=== PATIENT | female | born 1960 | race Two or more races ===

== ENCOUNTER 2024-12-25 21:32 | Inpatient (IN) | payer MEDICARE, MEDICAID, SELFPAY ==
[2024-12-25 21:35] VITALS: PULSE 96; RESP 18; O2SAT 100
[2024-12-25 21:36] VITALS: BMI 23.3
[2024-12-25 21:37] VITALS: BP 142/69; PULSE 94; RESP 19; TEMP 36.6; O2SAT 99
--- NOTE | 2024-12-25 22:12 | EDNOTE_ITS ---
ED General RME/HPI General Chief complaint: Wound/Laceration Stated complaint: CATHETER PROBLEMS/BACK PAIN Time Seen by Provider: 12/25/24 21:39 Arrival date/time: 12/25/24 21:32 RME / HPI RME / HPI narrative: Patient is a 64 years old female with PMH of diabetes mellitus, hyperlipidemia, ovarian cancer, gastritis, hemorrhoids, sacral pressure ulcer, colon resection with ileostomy, chronic indwelling reid catheter, s/p Rt above knee amputation presented to the ED due to leaking reid and severe pain in sacral area. She reports her reid was placed 3 weeks ago and started leaking several days ago. She denies lower abdominal pain or dysuria symptoms. She also reports her sacral pressure ulcer is causing a lot of pain now and is poorly controlled with home Foxworth 5/325. She denies any nausea, vomiting, fever, chills, increasing in ileostomy output. Related Data Home Medications ?Medication ?Instructions ?Recorded ?Confirmed atorvastatin 40 mg tablet 40 mg PO DAILY 04/03/2203/20 ergocalciferol (vitamin D2) 1,250 1 cap PO [facility] 04/04/22 mcg (50,000 unit) capsule insulin lispro 100 unit/mL ea subcut 04/03/22 subcutaneous pen Previous Rx's ?Medication ?Instructions ?Recorded pantoprazole 40 mg tablet,delayed 40 mg PO BID #60 tab s 04/04/22 release (Protonix) ciprofloxacin HCl 500 mg tablet 500 mg PO BID #14 tabs 05/08/23 (Cipro) Allergies Allergy/AdvReac Type Severity Reaction Status Date / Time latex AdvReac Mild RASH Verified 07/02/22 12:28 morphine AdvReac Unknown Verified 07/02/22 12:28 Review of Systems Review of Systems Systems Reviewed: All systems reviewed, normal except as documented ED Exam Narrative Physical exam: Gen: Well-developed and well-nourished elderly female. HEENT: NCAT, PERRLA, EOMI, MMM, anicteric conjunctivae. CVS: normal S1 and S2. RRR. No M/R/G. Resp: CTA B/L. No rhonchi, rales, crackles or wheezing. Abd: soft, non-tender, non-distended. BS+ in all 4 quadrants. Ileostomy on the left side with minimal content, appears clean and no leakage. MSK: Good ROM in BUE & LLE. No edema or rash. S/p Rt above knee amputation. Neuro: CN II-XII grossly intact. Strength 5/5 in BUE & LLE. Alert and oriented x3. Psych: appears depressed. Course Quality Measures none Orders Category Date Time Status Patient Condition Routine Admission 12/26/24 05:[address] in Observation Status Routine Admission 12/26/24 05:21 Active COVID-19 Screening Questionnaire NOW Care 12/26/24 04:[address] Screening NOW Care 12/25/24 22:17 Active Signals Intelligence Analysis Manager Referral NOW Care 12/26/24 05:41 Active Continuous Pulse Oximetry NOW Care 12/26/24 05:21 Active Decision to Admit X1 Care 12/26/24 04:19 Active Flu & Pneumonia Vaccine Screen ONCE Care 12/26/24 05:31 Active Reid [Urinary Catheter, Remove] ONCE Care 12/25/24 22:14 Completed Reid [Urinary Catheter] QS Care 12/25/24 22:14 Active Reid to Leg Bag Routine Care 12/25/24 22:33 Ordered HOB Lower than 30 Degrees QSHIFT Care 12/26/24 05:41 Active Notify provider NEEDED Care 12/26/24 05:21 Active Pressure reduction mattress NEEDED Care 12/26/24 05:41 Active Pressure reduction mattress NOW Care 12/26/24 05:41 Active Saline [Insert IV] NOW Care 12/25/24 22:33 Active Skin care NOW Care 12/26/24 05:41 Active Take Wound Picture .FRIDAY Care 12/26/24 05:41 Active Turn Q2H Q2H Care 12/26/24 05:45 Ordered Turn Q2H Q2H Care 12/26/24 07:45 Ordered Turn Q2H Q2H Care 12/26/24 09:45 Ordered Turn Q2H Q2H Care 12/26/24 11:45 Ordered Turn Q2H Q2H Care 12/26/24 13:45 Ordered Turn Q2H Q2H Care 12/26/24 15:45 Ordered Turn Q2H Q2H Care 12/26/24 17:45 Ordered Turn Q2H Q2H Care 12/26/24 19:45 Ordered Turn Q2H Q2H Care 12/26/24 21:45 Ordered Turn Q2H Q2H Care 12/26/24 23:45 Ordered Turn Q2H Q2H Care 12/27/24 01:45 Ordered Turn Q2H Q2H Care 12/27/24 03:45 Ordered Turn Q2H Q2H Care 12/27/24 05:45 Ordered Waffle Boots NEEDED Care 12/26/24 05:41 Active Waffle Wheelchair Cushion NEEDED Care 12/26/24 05:41 Active Wound Care PRN Care 12/26/24 05:41 Active Wound Description NOW Care 12/26/24 05:45 Ordered Zero Pressure to Heels Routine Care 12/26/24 05:41 Ordered Consult to Orthopedic Routine Cons 12/26/24 05:40 Ordered Referral Nutritional Services Routine Cons 12/26/24 05:41 Active Referral Wound Care Routine Cons 12/26/24 05:41 Active Diet Dysphagia 2- Mechanical Altered Diet 12/26/24 Breakfast Active CA echo doppler complete Routine Exams 12/26/24 05:[address] abdomen pelvis w con Stat Exams 12/25/24 22:17 Taken XR chest 1V portable Stat Exams 12/25/24 22:34 Completed Basic Metabolic Panel AM DRAW Lab 12/27/24 05:00 Ordered Basic Metabolic Panel AM DRAW Lab 12/28/24 05:00 Ordered Basic Metabolic Panel AM DRAW Lab 12/29/24 05:00 Ordered Blood Culture (Lab) Stat Lab 12/25/24 23:20 Ordered CBC AM DRAW Lab 12/27/24 05:00 Ordered CBC AM DRAW Lab 12/28/24 05:00 Ordered CBC AM DRAW Lab 12/29/24 05:00 Ordered CBC Stat Lab 12/25/24 23:20 Completed CMP [Comprehensive Metabolic Panel] Stat Lab 12/25/24 23:20 Completed CRP [C-Reactive Protein] Stat Lab 12/25/24 23:20 Completed ESR [Sed Rate (ESR)] Stat Lab 12/25/24 23:20 Completed Glycohemoglobin w (eAG) AM DRAW Lab 12/27/24 05:00 Ordered Iron Panel Routine Lab 12/26/24 05:45 Ordered Lactate (Lactic Acid) Stat Lab 12/25/24 23:20 Completed Lipid Panel AM DRAW Lab 12/27/24 05:00 Ordered Magnesium AM DRAW Lab 12/27/24 05:00 Ordered Magnesium AM DRAW Lab 12/28/24 05:00 Ordered Magnesium AM DRAW Lab 12/29/24 05:00 Ordered Magnesium Stat Lab 12/25/24 23:20 Completed Partial Thromboplastin Time AM DRAW Lab 12/27/24 05:00 Ordered Phosphorous AM DRAW Lab 12/27/24 05:00 Ordered Phosphorous AM DRAW Lab 12/28/24 05:00 Ordered Phosphorous AM DRAW Lab 12/29/24 05:00 Ordered Procalcitonin Stat Lab 12/25/24 23:20 Completed Prothrombin Time with INR AM DRAW Lab 12/27/24 05:00 Ordered Thyroid Stimulating Hormone AM DRAW Lab 12/27/24 05:00 Ordered Urinalysis Stat Lab 12/25/24 23:15 Completed Urine Culture Stat Lab 12/26/24 05:26 Ordered 2 gm Med 12/26/24 05:44 Ordered Magnesium Sulfate 2 GM Ivpb [Magnesium Sulfate Ivpb] 2 gm in 50 ml IV X1 Acetaminophen Tab [Tylenol Tab] Med 12/26/24 05:21 Active 1,000 mg PO Q6H PRN Doxycycline Inj [Vibramycin Inj] 100 mg Med 12/26/24 09:00 Ordered Sodium Chloride 0.9% (Pop) [NS 0.9% mini bag] 100 ml IV BID Enoxaparin [Lovenox] Med 12/26/24 09:00 Active 40 mg SC QDAY HYDROcodone*/APAP 5/325 [Foxworth 5/325] Med 12/26/24 05:38 Active 1 tab PO Q4H PRN HYDROcodone/APAP 10/325 [Foxworth 10/325] Med 12/25/24 22:17 Discontinued 1 tab PO X1 ONE HYDROmorphone INJ [Dilaudid Inj] Med 12/26/24 05:26 Active 0.5 mg IVP Q3H PRN Ondansetron Inj [Zofran Inj] Med 12/26/24 05:21 Active 4 mg IV Q6H PRN Pantoprazole Inj [Protonix Inj] Med 12/26/24 09:00 Active 40 mg IVP QDAY VIT B12/Vit C/FA (Nephrovite) [Nephro-Jerri] Med 12/26/24 09:00 Active 1 tab PO QDAY Vancomycin Inj 2,000 mg Med 12/26/24 04:11 Active Sodium Chloride 0.9% 500 ml [Ns] 500 ml IV X1 cefTRIAXone [Rocephin] 2 gm Med 12/26/24 05:37 Ordered SODIUM CHLORIDE 0.9% (Popper) [Ns 0.9% (P)] 50 ml IV QDAY cefTRIAXone [Rocephin] 2 gm Med 12/26/24 01:57 Discontinued SODIUM CHLORIDE 0.9% (Popper) [Ns 0.9% (P)] 50 ml IV X1 oxyCODONE/APAP 5/325 [Percocet 5/325] Med 12/26/24 05:21 Discontinued 1 tab PO Q4H PRN traMADol HCL [Ultram] Med 12/26/24 05:21 Active 50 mg PO Q6HR PRN Code Status Routine Oth 12/26/24 05:21 Ordered Vital Signs Vital signs: Vital Signs Temperature 97.8 F 12/25/24 21:37 Pulse Rate 94 12/25/24 21:37 Respiratory Rate 19 12/25/24 21:37 Blood Pressure 142/69 H 12/25/24 21:37 Pulse Oximetry (%) 99 12/25/24 21:37 Oxygen Delivery Method Room Air 12/25/24 21:37 [facility] Patient data External records reviewed:: [facility] previous records and EMS form Clinical information provided by:: patient and EMS Social determinants that could affect healthcare access:: none Patient has the following chronic illnesses:: diabetes mellitus, hyperlipidemia, ovarian cancer, gastritis, hemorrhoids, sacral pressure ulcer, colon resection with ileostomy, chronic indwelling reid catheter, s/p Rt above knee amputation How is presenting disease/condition affected by chronic disease/condition?: c aused by Evaluation data The following diagnostics were reviewed and interpreted by me:: lab results, radiology exam(s) and EKG tracing(s) Lab and/or radiology exams considered but not ordered:: none Interpretation Summary: Suspicion for osteomyelitis, suspicion for proctitis, partially distended gallbladder with gallstones, wall thickening of the urinary bladder, suspicious for cystitis, UTI. Medications Medications considered but not ordered:: none. Medication administrations:: Medication Administration History Acetaminophen (Acetaminophen 325 Mg Tablet) 1,000 mg PO Q6H PRN PRN Reason: Fever >100 Stop: 01/25/25 05:20 Hydrocodone Bitart/Acetaminophen (Hydrocodone/Apap 5/325 Tablet) 1 tab PO Q4H PRN PRN Reason: pain 4-6 Stop: 12/31/24 05:37 Enoxaparin Sodium (Enoxaparin Sod Inj 40 Mg/0.4 Ml Syringe) 40 mg SC QDAY [facility] Stop: 01/09/25 08:59 Hydromorphone HCl (Hydromorphone Inj 2 Mg/Ml Vial) 0.5 mg IVP Q3H PRN PRN Reason: Pain 7-10 Stop: 12/31/24 05:25 Vancomycin HCl 2,000 mg/ (Sodium Chloride) 500 mls @ 150 mls/hr IV X1 ONE Stop: 12/26/24 07:30 Doxycycline Hyclate 100 mg/ (Sodium Chloride) 100 mls @ 100 mls/hr IV BID [facility] Stop: 01/02/25 08:59 Ceftriaxone Sodium 2 gm/ (Sodium Chloride) 50 mls @ 100 mls/hr IV QDAY [facility] Stop: 01/02/25 05:36 Ondansetron HCl (Ondansetron Inj 2 Mg/Ml Inj 2 Ml) 4 mg IV Q6H PRN; Protocol PRN Reason: NAUSEA OR VOMITING Stop: 01/25/25 05:20 Pantoprazole Sodium (Pantoprazole Inj 40 Mg Vial) 40 mg IVP QDAY [facility] Stop: 01/25/25 08:59 Tramadol HCl (Tramadol Hcl 50 Mg Tablet) 50 mg PO Q6HR PRN PRN Reason: PAIN SCALE 4-6 (Moderate Stop: 12/31/24 05:20 Vitamin B Complex/Vit C/Folic Acid (Vit B12/Vit C/Fa (Nephrovite) Tablet) 1 tab PO QDAY [facility] Stop: 01/25/25 08:59 Discontinued Medications Hydrocodone Bitart/Acetaminophen (Hydrocodone/Apap 10/325 Tab) 1 tab PO X1 ONE Stop: 12/25/24 22:18 Last Admin: 12/26/24 01:15 Dose: 1 tab Documented By: TATO Ceftriaxone Sodium 2 gm/ (Sodium Chloride) 50 mls @ 100 mls/hr IV X1 ONE Stop: 12/26/24 03:26 Last Admin: 12/26/24 05:33 Dose: 100 mls/hr Documented By: VINI Oxycodone/Acetaminophen (Oxycodone/Apap 5/325 Tablet) 1 tab PO Q4H PRN PRN Reason: PAIN SCALE 4-6 (Moderate Stop: 12/31/24 05:20 Ceftriaxone 2 g, Vancomycin 2 g, Foxworth 10/325. Consultations Consultation(s) initiated? (list below): No Diagnosis Differential Diagnosis ED Complaint MDM: osteomyelitis, UTI, proctitis, cellulitis Most likely diagnosis given after review of the tests above:: Osteomyelitis Admission Indicated Admission indicated?: indicated Explain why admission is indicated or not indicated:: Needs work up for possible osteomyelitis and blood cultures Admission Request Was there a request for admission?: Yes Admission Attestation Admission request attestation: Discussed case with Dr. Carlin from Hospitalist service regarding admission. Discussed patients ED course, exam findings, labs, and radiology results. The Hospitalist agrees to accept the patient for admission. Disposition Plan Disposition Plan: Admit Medical Decision Making Differential Diagnosis Differential Diagnosis: osteomyelitis, UTI, proctitis, cellulitis Lab Data 12/25/24 23:20 12/25/24 23:20 Labs: Lab Results 12/25/24 12/25/24 Range/Units 23:15 23:20 WBC 12.0 H (3.6-11.0) Thou/mm3 RBC 3.19 L (4.00-5.20) Miln/mm3 Hgb 9.4 L (12.0-16.0) g/dL Hct 28.3 L (36.0-46.0) % MCV 89 (80-100) fL MCH 29.5 (25.0-35.0) pg MCHC 33.2 (31.0-37.0) g/dl RDW Std Deviation 42.8 (36.4-46.3) fL Plt Count 376 (140-440) Thou/mm3 Neut % (Auto) 64 (37-80) % Lymph % (Auto) 25 (10-50) % [place] % (Auto) 7 (0-12) % Eos % (Auto) 3 (0-10) % Baso % (Auto) 0 (0-2.5) % Neut # (Auto) 7.7 (1.8-7.7) Thou/mm3 Lymph # (Auto) 2.9 (1.0-4.8) Thou/mm3 [place] # (Auto) 0.9 H (0.0-0.8) Thou/mm3 Eos # (Auto) 0.4 (0.0-0.5) Thou/mm3 Baso # (Auto) 0.0 (0.0-0.2) Thou/mm3 Immature Gran # (Auto) 0.04 H (0.00-0.00) Thou/mm3 Absolute Nucleated RBC 0.00 (0.00-0.00) Thou/mm3 Immature Gran % 0 (0-0) % Nucleated RBC % 0 (0) /100 WBC ESR 83 H (0-30) mm/hr Sodium 137 (136-145) mMol/L Potassium 4.2 (3.4-5.1) mMol/L Chloride 109 H (98-107) mMol/L Carbon Dioxide 19.2 L (20.0-31.0) mMol/L Anion Gap 9 (7-16) BUN 15 (9-23) mg/dL Creatinine 0.7 (0.6-1.3) mg/dL Estim Creat Clear Calc 72.1 (>60) mL/min eGFR > 60 (60 - ) See Note BUN/Creatinine Ratio 21 H (12-20) Ratio Glucose 265 H (74-106) mg/dL Calculated Osmolality 283 (275-295) Lactic Acid 1.1 (0.4-2.0) mMol/L Calcium 9.0 (8.3-10.6) mg/dL Corrected Calcium 9.4 (8.5-10.1) mg/dL Magnesium 1.6 (1.6-2.6) mg/dL Total Bilirubin < 0.2 L (0.3-1.2) mg/dL AST 10 (0-34) U/L ALT < 7 L (10-49) U/L Alkaline Phosphatase 98 (46-116) U/L C-Reactive Prot, Quant 8.2 H (0.0-0.9) mg/dL Total Protein 7.0 (5.7-8.2) gm/dL Albumin 3.5 (3.4-4.8) gm/dL Globulin 3.5 (2.3-3.5) gm/dL Albumin/Globulin Ratio 1.0 L (1.2-2.2) Procalcitonin 0.10 (0.0-0.49) ng/ml Ur Collection Type Catheter Urine Color Lt-Yellow (Lt Yel-Yel) Urine Clarity Cloudy A (Clear/Hazy) Urine pH 6.0 (5.0-7.0) Ur Specific [place] 1.022 (1.001-1.035) Urine Protein 2+ A (Neg - Trace) Urine Glucose (UA) Negative (Negative) Urine Ketones Negative (Negative) Urine Blood 2+ A (Negative) Urine Nitrite Positive (Negative) Urine Bilirubin Negative (Negative) Urine Urobilinogen (Auto) Negative (0.0-1.0) mg/dL Ur Leukocyte Esterase Positive (Negative) Urine RBC 30 H (0-3) /hpf Urine WBC 3355 H (0-5) /hpf Ur Squamous Epith Cells 6 H (0-5) /hpf Urine Bacteria 4+ A (None) Discharge Plan Plan Patient Disposition: Admit Acute Care w/in Hospital Prescriptions/Referrals Prescriptions/Med Rec: No Action atorvastatin 40 mg tablet 40 mg PO DAILY Patient Comments: TAKE 1 TABLET BY MOUTH ONCE DAILY ergocalciferol (vitamin D2) 1,250 mcg (50,000 unit) capsule 1 cap PO [facility] insulin lispro 100 unit/mL insulin pen SUBCUT Patient Comments: INJECT 8-9 UNITS SUBCUTANEOUSLY THREE TIMES DAILY PLUS SCALE (151-200) 2 UNITS EXTRA, (201-250) 3 UNITS EXTRA, (251-300) 4 UNITS EXTRA, (OVER 300) 5 UNITS EXTRA pantoprazole [Protonix] 40 mg Tablet,Delayed Release (Dr/Ec) 40 mg PO BID Qty: 60 2RF Rx Instructions: TAKE 1 TABLET BY MOUTH TWICE A DAY 30 MIN. BEFORE MEALS ciprofloxacin HCl [Cipro] 500 mg tablet 500 mg PO BID Qty: 14 0RF Referrals: Emiliano Rosas MD [Primary Care Provider] - In 1 week Problem List Clinical Impression: Osteomyelitis Patient/Caregiver Discharge Instructions Print Language: Swazi Stand Alone Forms: Fide Award Info., Patient Portal Info Letter
--- NOTE | 2024-12-25 22:17 | XR_ITS ---
Examination: CT abdomen with intravenous contrast CT pelvis with intravenous contrast 2-D coronal reconstructions 2-D sagittal reconstructions Date and time of exam:January 05, 2025 0158 hrs. Indications: Generalized abdominal pain and soft tissue pain in the sacrococcygeal region status post right leg application 2 weeks ago. CTDI: vol (mGy) 8.82 DLP: (mGycm) 501 Technique: Multiple axial sections of the abdomen and pelvis have been obtained. 64 slice high-resolution scanner used. 3 mm axial sections have been obtained, post intravenous injection 60 cc [id number] 2-D sagittal coronal reconstructions 3-D reconstructions Nodose protocols, adjustment MA KV according to patient size Findings: There is mild intrahepatic biliary tract dilatation Contracted gallbladder, cholelithiasis No pancreatic mass No renal or ureteral calculi, mild perinephric stranding Left ostomy Heavy abdominal aortic calcification No bowel obstruction Soft tissue ulcer defect posterior to the lower sacrum and coccyx without a fluid-filled drainable abscess Cortical bone destruction involving the coccygeal segments Severe osteopenia 3 cm enhancing mass contiguous with the anterior urinary bladder, axial image 199 Hips appear intact Proctitis pattern Impression: Large soft tissue ulceration in the posterior lower back with osteomyelitis coccygeal segments Cholelithiasis pneumonia Recommend cystoscopy to confirm bladder carcinoma
--- NOTE | 2024-12-25 22:34 | XR_ITS ---
Examination: AP chest single view Technique one AP portable supine chest single view Exam date and time: December 25, 2024 11:46 PM Comparison November 07, 2016 Indications: Shortness of breath today. Findings: Bilateral subsegmental atelectasis No significant cardiac enlargement No pneumonia or pulmonary edema Right internal jugular line right atrium Impression: Bilateral subsegmental atelectasis
[2024-12-25 23:45] LABS: Lactate (Lactic Acid) 1.1 mMol/L (0.4-2.0)
[2024-12-25 23:46] LABS: Basophils % (Auto) 0 % (0-2.5); Eosinophils # (Auto) 0.4 Thou/mm3 (0.0-0.5); Eosinophils % (Auto) 3 % (0-10); Hematocrit 28.3 % (36.0-46.0); Hemoglobin 9.4 g/dL (12.0-16.0); Immature Granulocytes % (Auto) 0 % (0-0); Immature Granulocytes Auto 0.04 Thou/mm3 (0.00-0.00); Lymphocytes # (Auto) 2.9 Thou/mm3 (1.0-4.8); Lymphocytes % (Auto) 25 % (10-50); Mean Corpuscular HGB Conc 33.2 g/dl (31.0-37.0); Mean Corpuscular Hemoglobin 29.5 pg (25.0-35.0); Mean Corpuscular Volume 89 fL (80-100); Monocytes # (Auto) 0.9 Thou/mm3 (0.0-0.8); Monocytes % (Auto) 7 % (0-12); Neutrophils # (Auto) 7.7 Thou/mm3 (1.8-7.7); Neutrophils % (Auto) 64 % (37-80); Nucleated Red Blood Cell % 0 /100 WBC (0); Platelet Count 376 Thou/mm3 (140-440); RDW Standard Deviation 42.8 fL (36.4-46.3); Red Blood Count 3.19 Miln/mm3 (4.00-5.20)
[2024-12-25 23:47] LABS: Collection Type, Urine Catheter
[2024-12-25 23:49] VITALS: BP 145/58; PULSE 88; RESP 18; TEMP 36.9; O2SAT 100
[2024-12-25 23:57] LABS: Bacteria,Urine 4+; Bilirubin,Urine Negative (Negative); Blood,Urine 2+ (Negative); Glucose, Urine Negative (Negative); Ketones,Urine Negative (Negative); Leukocyte Esterase,Urine Positive (Negative); Nitrite,Urine Positive (Negative); Protein,Urine 2+ (Neg - Trace); RBC,Urine 30 /hpf (0-3); Specific Gravity,Urine 1.022 (1.001-1.035); Squamous Epithelial Cell,Urine 6 /hpf (0-5); Urobilinogen,Urine Negative mg/dL (0.0-1.0); WBC,Urine 3355 /hpf (0-5)
[2024-12-26 00:06] LABS: Clarity,Urine Cloudy (Clear/Hazy); Color,Urine Lt-Yellow (Lt Yel-Yel)
[2024-12-26 00:20] LABS: Sed Rate (ESR) 83 mm/hr (0-30)
[2024-12-26 00:22] LABS: Alanine Aminotransferase < 7 U/L (10-49); Albumin, Serum 3.5 gm/dL (3.4-4.8); Alkaline Phosphatase 98 U/L (46-116); Anion Gap 9 (7-16); Aspartate Amino Transferase 10 U/L (0-34); BUN/Creatinine Ratio 21 Ratio (12-20); Bilirubin,Total < 0.2 mg/dL (0.3-1.2); Blood Urea Nitrogen 15 mg/dL (9-23); C-Reactive Protein 8.2 mg/dL (0.0-0.9); Calcium (Corrected) 9.4 mg/dL (8.5-10.1); Carbon Dioxide 19.2 mMol/L (20.0-31.0); Chloride 109 mMol/L (98-107); Creatinine (Component) 0.7 mg/dL (0.6-1.3); Estimated Creatinine Clearance 72.1 mL/min (>60); Globulin 3.5 gm/dL (2.3-3.5); Glucose 265 mg/dL (74-106); Magnesium 1.6 mg/dL (1.6-2.6); Osmolality,Calculated 283 (275-295); Potassium 4.2 mMol/L (3.4-5.1); Sodium 137 mMol/L (136-145); eGFR > 60 See Note
[2024-12-26] MEDS: HYDROcodone/APAP 10/325 TAB PO (01:15)
--- NOTE | 2024-12-26 04:06 | PRELIM_ITS ---
CT scan of the abdomen and pelvis with intravenous contrast (axial sections with sagittal and coronal reformats) December 26, 2024 0158 hours Clinical History: Pressure wound. Comparison: None. Findings: The gallbladder is contracted and demonstrates multiple tiny calculi. The liver, pancreas, spleen, kidneys and adrenals are unremarkable. There is a colostomy in the left abdomen. There is wall thickening of the rectum with surrounding fat stranding. No evidence of bowel obstruction. The appendix is within normal limits (images [id number]). A Michel catheter is seen in the urinary bladder with air loculi in the lumen of the urinary bladder. There is diffuse irregular wall thickening of the urinary bladder. There is a 3.1 x 3 cm heterogeneously enhancing nodular mass adjacent to the superior aspect of the urinary bladder, suspicious for neoplasm. The uterus is not visualized and may be surgically absent. The abdominal aorta and its branches demonstrate atheromatous calcification without evidence of aneurysm. There is no free fluid or free air. Degenerative changes are identified in the spine. There is decubitus ulcer over they sacrococcygeal region with presacral soft tissue thickening and fat stranding and lucencies in the distal coccyx, suspicious for osteomyelitis. No evidence of loculated abscess. Subsegmental atelectasis is noted in the lower lobes bilaterally. Please note that evaluation of bowel loops is limited due to absence of oral contrast. Impression: 1. Decubitus ulcer over they sacrococcygeal region with presacral soft tissue thickening and fat stranding and lucencies in the distal coccyx, suspicious for osteomyelitis. No evidence of loculated abscess. 2. Rectal wall thickening with perirectal fat stranding, suspicious for proctitis. 3. Partially distended gallbladder with gallstones. 4. Wall thickening of the urinary bladder, suspicious for cystitis. 5. A 3.1 cm heterogeneously enhancing nodular mass adjacent to the superior aspect of the urinary bladder, suspicious for neoplasm. 6. Other findings as described above. Suggest clinical correlation and follow up accordingly. Report Electronically Signed By: Santos Carter 12/26/2024 4:05:30 AM [EST]
[2024-12-26] MEDS: cefTRIAXone 2 GM in SODIUM CHLORIDE 0.9% (Popper) 50 ML IV (05:33)
--- NOTE | 2024-12-26 05:46 | ESHP_ITS ---
<Statement entered by Eddi Reyes MD - 12/28/24 05:42> I reviewed above note and agree with findings and plans. I have also personally examined the patient with medicine team and went over assessment and plan with medical team including undergraduate internship and resident physician. Documentation for date of: 12/26/24 HPI History of Present Illness History of present illness: Chief complaint: Burning and leakage of chronic Reid HPI: Ms. 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 She was seen in the ED on 12/25/2024 for recurrent leakage around the Reid catheter and some burning over the last 24 hours. She denies any fevers, chills or other systemic symptoms. However does endorse severe pain in her lower back due to worsening coccygeal pressure ulcer, which she started to develop over the last few months. She also has never left lower extremity pain due to calf ulcers and follows up with wound care every Friday. Patient was recently discharged from senior living facility in [place] a few weeks ago after completing her rehab, and currently lives at home. She is chronically wheelchair-bound, and her sister is her medical decision-maker. In the ED, vitals were within normal limits. Initial labs remarkable for mild leukocytosis WBC 12, normocytic anemia Hb 9.4 MCV 89, elevated ESR 83 and elevated CRP 8.2, hyperglycemia 265. Urinalysis was remarkable for 2+ protein, 2+ blood, nitrite positive, esterase positive, 30 RBC, 4+ bacteria and > 3000 WBC. Urine cultures and blood cultures ordered. Patient is admitted for the work-up and management of chronic Reid catheter associated UTI and coccygeal osteomyelitis in the setting of stage IV sacral ulcer. Orthopedic surgeon Dr. Desai and oncologist Dr. Meyer are consulted for further evaluation. Allergies: Morphine?hives Latex?rash WINDOW GLAZIER HISTORY: Menarche?-?Age:?12 :?0 Live?Births:?0 Social history: Occupational?History:?Retired - [employer] Education?Level:?Attended College, did not graduate Marital?Status:?Single Tobacco?Use:?Denies ETOH?Use:?Denies Drug?Note:?Denies Social?History?Note:?Lives?at?rehab Family history: Denies any family history of sudden cardiac , stroke or cancers. Review of Systems Review of Systems Narrative Review of Systems: GENERAL: Denies fevers/chills, diaphoresis. HEENT: Denies headache or visual/hearing changes. Denies nasal discharge. NEURO: Denies unusual weakness or difficulty speaking. CARDIO: Denies chest pain, palpitations. PULM: Denies SOB, cough, wheezing. GI: Denies abdominal pain, no N/V, no C/D. Reports having BMs URO: burning/itching and leakage around the Reid catheter WINDOW GLAZIER: Denies menstrual changes, hot flashes. MSK/EXT/SKIN: Severe lower back pain due to pressure ulcer PSYCH: Cooperative, pleasant mood & affect. The rest of the review of systems is otherwise negative. Exam Vital Signs Temp Pulse Resp BP Pulse Ox O2 Del Method 98.4 F 88 18 145/58 H 100 Room Air 12/25/24 23:49 12/25/24 23:49 12/25/24 23:49 12/25/24 23:49 12/25/24 23:49 12/25/24 23:49 Narrative Exam Constitutional Alert, oriented x3 and on air mattress HEENT Vision grossly intact. Patent nares. Trachea midline. Respiratory Chest normal on inspection and clear to auscultation bilaterally. Cardiovascular S1 and S2 audible, RRR. No murmurs or carotid bruit. No gross JVD. Abdominal Soft and non tender to palpation, BS + , LT ileostomy noted- functional Genitourinary No bladder tenderness, no flank pain. Normal to palpation. Musculoskeletal RT LE - s/p BKA LT LE - s/p 3rd digit amputation Neurological CN II - XII grossly intact. Extremity motor and sensation grossly intact. Skin LT LE - calf ulcers, clean bandage and in a leg brace 4cm Sacral ulcer - deep stage 4+/bone visible. Psychiatric Patient has a good affect, is cooperative. Results: Labs 12/25/24 23:20 12/25/24 23:20 Labs: Short CBC 12/25/24 Range/Units 23:20 WBC 12.0 H (3.6-11.0) Thou/mm3 Hgb 9.4 L (12.0-16.0) g/dL Hct 28.3 L (36.0-46.0) % Plt Count 376 (140-440) Thou/mm3 BMP 12/25/24 23:20 Sodium 137 Potassium 4.2 Chloride 109 H Carbon Dioxide 19.2 L BUN 15 Creatinine 0.7 Glucose 265 H Calcium 9.0 Liver Function 12/25/24 Range/Units 23:20 Total Bilirubin < 0.2 L (0.3-1.2) mg/dL AST 10 (0-34) U/L ALT < 7 L (10-49) U/L Alkaline Phosphatase 98 (46-116) U/L Albumin 3.5 (3.4-4.8) gm/dL Urine 12/25/24 Range/Units 23:15 Urine Color Lt-Yellow (Lt Yel-Yel) Urine Clarity Cloudy A (Clear/Hazy) Urine pH 6.0 (5.0-7.0) Ur Specific [place] 1.022 (1.001-1.035) Urine Protein 2+ A (Neg - Trace) Urine Glucose (UA) Negative (Negative) Quality Measures Quality Measures none Advance care planning discussed with:: patient Medications Home Medications and Allergies Home Medications ?Medication ?Instructions ?Recorded ?Confirmed ?Type atorvastatin 40 mg tablet 40 mg PO DAILY 04/03/2203/20 History ergocalciferol (vitamin D2) 1,250 1 cap PO [facility] 04/04/22 History mcg (50,000 unit) capsule insulin lispro 100 unit/mL ea subcut 04/03/22 History subcutaneous pen Allergies Allergy/AdvReac Type Severity Reaction Status Date / Time latex AdvReac Mild RASH Verified 07/02/22 12:28 morphine AdvReac Unknown Verified 07/02/22 12:28 Visit Medications Acetaminophen (Acetaminophen 325 Mg Tablet) 1,000 mg PO Q6H PRN PRN Reason: Fever >100 Stop: 01/25/25 05:20 Hydrocodone Bitart/Acetaminophen (Hydrocodone/Apap 5/325 Tablet) 1 tab PO Q4H PRN PRN Reason: pain 4-6 Stop: 12/31/24 05:37 Dextrose (Dextrose 50%-Water Inj 50 Ml Syringe) 50 ml IV Q15MIN PRN PRN Reason: BG <50 OR BG <70 & pt unresponsive Stop: 01/25/25 05:43 Enoxaparin Sodium (Enoxaparin Sod Inj 40 Mg/0.4 Ml Syringe) 40 mg SC QDAY [facility] Stop: 01/09/25 08:59 Hydromorphone HCl (Hydromorphone Inj 2 Mg/Ml Vial) 0.5 mg IVP Q3H PRN PRN Reason: Pain 7-10 Stop: 12/31/24 05:25 Vancomycin HCl 2,000 mg/ (Sodium Chloride) 500 mls @ 150 mls/hr IV X1 ONE Stop: 12/26/24 07:30 Doxycycline Hyclate 100 mg/ (Sodium Chloride) 100 mls @ 100 mls/hr IV BID [facility] Stop: 01/02/25 08:59 Ceftriaxone Sodium 2 gm/ (Sodium Chloride) 50 mls @ 100 mls/hr IV QDAY [facility] Stop: 01/02/25 05:36 Doxycycline Hyclate 100 mg/ (Sodium Chloride) 100 mls @ 100 mls/hr IV X1 ONE Stop: 12/26/24 06:59 Magnesium Sulfate (Magnesium Sulfate Ivpb) 2 gm in 50 mls @ 25 mls/hr IV X1 ONE Stop: 12/26/24 07:43 Insulin Human Lispro (Insulin Lispro (Admelog) 1 Unit/0.01 Ml Unit) 0 unit SC [facility]; Protocol Stop: 01/25/25 07:29 Ondansetron HCl (Ondansetron Inj 2 Mg/Ml Inj 2 Ml) 4 mg IV Q6H PRN; Protocol PRN Reason: NAUSEA OR VOMITING Stop: 01/25/25 05:20 Pantoprazole Sodium (Pantoprazole Inj 40 Mg Vial) 40 mg IVP QDAY [facility] Stop: 01/25/25 08:59 Tramadol HCl (Tramadol Hcl 50 Mg Tablet) 50 mg PO Q6HR PRN PRN Reason: PAIN SCALE 4-6 (Moderate Stop: 12/31/24 05:20 Vitamin B Complex/Vit C/Folic Acid (Vit B12/Vit C/Fa (Nephrovite) Tablet) 1 tab PO QDAY [facility] Stop: 01/25/25 08:59 Discontinued Medications Hydrocodone Bitart/Acetaminophen (Hydrocodone/Apap 10/325 Tab) 1 tab PO X1 ONE Stop: 12/25/24 22:18 Last Admin: 12/26/24 01:15 Dose: 1 tab Ceftriaxone Sodium 2 gm/ (Sodium Chloride) 50 mls @ 100 mls/hr IV X1 ONE Stop: 12/26/24 03:26 Last Admin: 12/26/24 05:33 Dose: 100 mls/hr Oxycodone/Acetaminophen (Oxycodone/Apap 5/325 Tablet) 1 tab PO Q4H PRN PRN Reason: PAIN SCALE 4-6 (Moderate Stop: 12/31/24 05:20 Assessment & Plan Plan Ms. 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 She was seen in the ED on 12/25/2024 for recurrent leakage around the Reid catheter and some burning over the last 24 hours. Labs remarkable for mild leukocytosis WBC 12, normocytic anemia Hb 9.4 MCV 89, elevated ESR 83 and elevated CRP 8.2, hyperglycemia 265. Urinalysis was remarkable for 2+ protein, 2+ blood, nitrite positive, esterase positive, 30 RBC, 4+ bacteria and > 3000 WBC. Patient is admitted for the work-up and management of chronic Reid catheter associated UTI and coccygeal osteomyelitis in the setting of stage IV sacral ulcer. Catheter associated UTI Leukocytosis Microscopic Hematuria Hx of endometrial CA s/p hysterectomy + BSO in 2016 S/p radiation + chemotherapy 2016?2021 - seen in the ED on 12/25/2024 for recurrent leakage around the Reid catheter and some burning over the last 24 hours. - mild leukocytosis WBC 12 - Urinalysis was remarkable for 2+ protein, 2+ blood, nitrite positive, esterase positive, 30 RBC, 4+ bacteria and > 3000 WBC - chronic reid catheter since 2022 after fibrosis from brachytherapy and radiation to vaginal stump tumor Plan: - Started on Rocephin 2 g daily (12/25/2024? - As needed acetaminophen 1 g every 6 hours for fever > 100 pain 1?3 - Consult to oncology Dr. Meyer, pending recommendations. Day team to follow-up - Reid catheter replaced in the ED on 12/25/2024, no leakage noted after placement. - Follow-up urine culture and blood culture results Coccygeal osteomyeltiis Stage IV sacral ulcer Severe PAD s/p RT LE NKA + LT LE 3rd digit amputation - Hx of severe PAD diagnosed after iliofemoral runoff testing in 2022 as per documentation - She does endorse severe pain in her lower back due to worsening coccygeal pressure ulcer, which she started to develop over the last few months. - She also has never left lower extremity pain due to calf ulcers and follows up with wound care every Friday. - Patient was recently discharged from senior living facility in [place] a few weeks ago after completing her rehab, and currently lives at home with no home wound care. She is chronically wheelchair-bound. - CT abdo/pelvis with contrast on 12/25/2024 : Impression: 1. Decubitus ulcer over they sacr-ococcygeal region with presacral soft tissue thickening and fat stranding and lucencies in the distal coccyx, suspicious for osteomyelitis. No evidence of loculated abscess. 2. Rectal wall thickening with perirectal fat stranding, suspicious for proctitis. 3. Partially distended gallbladder with gallstones. 4. Wall thickening of the urinary bladder, suspicious for cystitis. 5. A 3.1 cm heterogeneously enhancing nodular mass adjacent to the superior aspect of the urinary bladder, suspicious for neoplasm. 6. Other findings as described above. Plan: - Referral to wound care - Keep patient on air mattress and position change every 2 hours - Consult to orthopedic surgery Dr. Desai for further evaluation. Day team to follow-up - Received vancomycin x 1 in the ED - Started on doxycycline 100 mg IV twice daily (12/26 - - On Rocephin 2g qD (12/25 - - Pain control: Tylenol (1-3) + [place] 5/325 q4H (4-6) + Morphine 2 mg (7-10) - patient services clerk referral recommended, may benefit from HH vs. SNF T2 IDDM HLD Normocytic anemia - Hyperglycemia lab work 265 , patient takes insulin at home - Last A1c in 2021 = 9% - Normocytic anemia Hb 9.4 MCV 89 Plan: - Started on daily Nephro-Jerri 1 tab - Iron panel ordered, day team to follow-up - May need clearance from oncology to continue iron, B12 or folic acid supplementation, given history of cancer - Follow-up a.m. lipid panel - Started normal insulin sliding scale with Accu-Checks - Hypoglycemia protocol in place - HbA1c ordered for a.m. draw - Day team to start insulin glargine - Advisable to prescribe continuous glucose monitor on discharge Health maintenance: Disposition: Admitted to [facility]. Pending Ortho, oncology and wound care consulted Diet: Dysphagia 2 low carb consistent Lines: pIVs GI Prophylaxis: Protonix 40 mg IV daily Thrombo Prophylaxis: Lovenox 40 SC daily Code status: LIMITED CODE, no CPR Plan of care discussed with attending Dr Reyes , Moises Dunaway M.D. PGY2 Disclaimer: This note was dictated by speech recognition. Minor errors in pearler may be present due to voice recognition software.
[2024-12-26] MEDS: DOXYCYCLINE INJ 100 MG in SODIUM CHLORIDE 0.9% (POP) 100 ML IV ×2 (07:52→20:10)
[2024-12-26] MEDS: Magnesium Sulfate 2 GM Ivpb 2 GM/50 ML BAG IV (07:56)
--- NOTE | 2024-12-26 08:08 | PC.NURSE ---
CONNECTED DOXY RT HAND COMPLAINED THAT IT WAS HURTING, TRIED FLUSHING STILL CAUSING PAIN. MOVED TO FOREARM. NOT INFUSING MG AT THIS TIME THERE IS ONLY ONE IV. WILL ASSESS FOR OTHER IV LOCATION WILL START MG AFTER ABX COMPLETE.
[2024-12-26 08:16] VITALS: BP 130/54; PULSE 78; RESP 16; TEMP 36.7; O2SAT 100
[2024-12-26 08:18] VITALS: PULSE 77
--- NOTE | 2024-12-26 08:45 | PC.NURSE ---
CALLED PHARMACY FOR NEPHROVITE
[2024-12-26] MEDS: PANTOPRAZOLE INJ 40 MG VIAL IVP (08:57)
[2024-12-26] MEDS: ENOXAPARIN SOD INJ 40 MG/0.4 ML SYRINGE SC (09:01)
[2024-12-26 09:18] LABS: Basophils # (Auto) 0.1 Thou/mm3 (0.0-0.2); Basophils % (Auto) 1 % (0-2.5); Eosinophils # (Auto) 0.5 Thou/mm3 (0.0-0.5); Eosinophils % (Auto) 5 % (0-10); Hematocrit 28.2 % (36.0-46.0); Hemoglobin 9.3 g/dL (12.0-16.0); Immature Granulocytes % (Auto) 0 % (0-0); Immature Granulocytes Auto 0.04 Thou/mm3 (0.00-0.00); Lymphocytes # (Auto) 2.9 Thou/mm3 (1.0-4.8); Lymphocytes % (Auto) 28 % (10-50); Mean Corpuscular Hemoglobin 29.1 pg (25.0-35.0); Mean Corpuscular Volume 88 fL (80-100); Monocytes # (Auto) 0.9 Thou/mm3 (0.0-0.8); Monocytes % (Auto) 9 % (0-12); Neutrophils # (Auto) 6.1 Thou/mm3 (1.8-7.7); Neutrophils % (Auto) 58 % (37-80); Nucleated Red Blood Cell % 0 /100 WBC (0); Platelet Count 357 Thou/mm3 (140-440); RDW Standard Deviation 41.8 fL (36.4-46.3); White Blood Count 10.5 Thou/mm3 (3.6-11.0)
--- NOTE | 2024-12-26 09:21 | PC.NURSE ---
PT UPSET NOT WANTING LAB TO DRAW BLOOD FEELS THEY WERE RUDE ADVISED THAT IF SHE HAS LAB THAT I WILL DRAW FOR THEM SHE STATED OK THANK YOU
[2024-12-26] MEDS: HYDROcodone/APAP 5/325 TABLET 1 TAB PO ×2 (09:28→20:20)
[2024-12-26 09:33] LABS: Iron 23 mcg/dL (50-170); Percent Iron Saturation 3 % (20-55); Total Iron Binding Capacity 601 mcg/dL (250-425); Unsaturated Iron Binding 578 (225-295)
--- NOTE | 2024-12-26 09:35 | PC.NURSE ---
pharmacy called for dana and alisha
[2024-12-26 09:38] LABS: Anion Gap 11 (7-16); BUN/Creatinine Ratio 23 Ratio (12-20); Blood Urea Nitrogen 14 mg/dL (9-23); Calcium 8.8 mg/dL (8.3-10.6); Carbon Dioxide 16.3 mMol/L (20.0-31.0); Chloride 110 mMol/L (98-107); Creatinine (Component) 0.6 mg/dL (0.6-1.3); Estimated Creatinine Clearance 84.1 mL/min (>60); Glucose 177 mg/dL (74-106); Osmolality,Calculated 278 (275-295); Potassium 4.2 mMol/L (3.4-5.1); Sodium 137 mMol/L (136-145); eGFR > 60 See Note
[2024-12-26] MEDS: VIT B12/Vit C/FA (Nephrovite) TABLET 1 TAB PO (10:45)
[2024-12-26] MEDS: Vancomycin Inj 2,000 MG in SODIUM CHLORIDE 0.9% 500 ML 500 ML 150 MG IV (10:49)
[2024-12-26 12:44] VITALS: BMI 23.3
--- NOTE | 2024-12-26 12:47 | PD.RESPRO ---
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 Presented on 12/25 for recurrent leakage around Reid catheter, dysuria, and foul-smelling urine x24 hours and admitted for work-up and management of chronic Reid catheter associated UTI and coccygeal osteomyelitis (stage IV sacral ulcer). 12/26: Seen and examined at bedside in ED and on medical floor. No acute overnight events reported. Denies fever, chills, nausea, vomiting, shortness of breath, or chest pain. States that she has a solutions executive cloud sales who sees patient after being discharged from SNF approximately 3 weeks ago. Patient is satisfied with care but heike evaluation, noted to have dry and gangrenous lesions on heel and lateral aspect of the left lower extremity: So we will look into APS consult at this time and socially responsible investment adviser notified. Will continue ceftriaxone and doxycycline follow-up blood and urine cultures. Wound care order placed, orthopedic surgery and infectious disease consulted for osteomyelitis, and oncology consulted for bladder mass seen on imaging. Will follow-up on recommendations. Exam Vital Signs Temp Pulse Resp BP Pulse Ox O2 Del Method 98.0 F 77 16 130/54 L 100 Room Air 12/26/24 08:16 12/26/24 08:18 12/26/24 08:16 12/26/24 08:16 12/26/24 08:16 12/26/24 08:16 Narrative Exam General: AOx3, laying comfortably on bed, able to speak full sentences HEENT: NC/AT, mucous membranes moist, bilateral sclera anicteric Cardiovascular: regular rate and rhythm, S1/S2 present, no murmurs appreciated Pulmonary: clear to auscultation bilaterally, no rales/rhonchi/wheezes Abdominal: ileostomy noted and functional, soft, non-tender, non-distended Musculoskeletal: RLE s/p BKA, LLE s/p 3rd digit amputation Skin: stage 4 sacral ulcer, necrotic lesions on heel and lateral aspect of LLE Neuro: CN II-XII intact, no focal deficits Objective Labs 12/26/24 08:50 12/26/24 08:50 Labs: Laboratory Results - last 24 hr 12/25/24 12/25/24 12/26/24 23:15 23:20 08:50 WBC 12.0 H 10.5 RBC 3.19 L 3.20 L Hgb 9.4 L 9.3 L Hct 28.3 L 28.2 L MCV 89 88 MCH 29.5 29.1 MCHC 33.2 33.0 RDW Std Deviation 42.8 41.8 Plt Count 376 357 Neut % (Auto) 64 58 Lymph % (Auto) 25 28 Mclean % (Auto) 7 9 Eos % (Auto) 3 5 Baso % (Auto) 0 1 Neut # (Auto) 7.7 6.1 Lymph # (Auto) 2.9 2.9 Mclean # (Auto) 0.9 H 0.9 H Eos # (Auto) 0.4 0.5 Baso # (Auto) 0.0 0.1 Immature Gran # (Auto) 0.04 H 0.04 H Absolute Nucleated RBC 0.00 0.00 Immature Gran % 0 0 Nucleated RBC % 0 0 ESR 83 H Sodium 137 137 Potassium 4.2 4.2 Chloride 109 H 110 H Carbon Dioxide 19.2 L 16.3 L Anion Gap 9 11 BUN 15 14 Creatinine 0.7 0.6 Estim Creat Clear Calc 72.1 84.1 eGFR > 60 > 60 BUN/Creatinine Ratio 21 H 23 H Glucose 265 H 177 H D Calculated Osmolality 283 278 Lactic Acid 1.1 Calcium 9.0 8.8 Corrected Calcium 9.4 Magnesium 1.6 Iron 23 L TIBC 601 H Iron Saturation 3 L Unsat Iron Binding 578 H Total Bilirubin < 0.2 L AST 10 ALT < 7 L Alkaline Phosphatase 98 C-Reactive Prot, Quant 8.2 H Total Protein 7.0 Albumin 3.5 Globulin 3.5 Albumin/Globulin Ratio 1.0 L Procalcitonin 0.10 Ur Collection Type Catheter Urine Color Lt-Yellow Urine Clarity Cloudy A Urine pH 6.0 Ur Specific Institute 1.022 Urine Protein 2+ A Urine Glucose (UA) Negative Urine Ketones Negative Urine Blood 2+ A Urine Nitrite Positive Urine Bilirubin Negative Urine Urobilinogen (Auto) Negative Ur Leukocyte Esterase Positive Urine RBC 30 H Urine WBC 3355 H Ur Squamous Epith Cells 6 H Urine Bacteria 4+ A Quality Measures Quality Measures none Advance care planning discussed with:: patient Assessment & Plan Assessment Current Active Medications: Generic Name Dose Route Start Last Admin Trade Name Freq PRN Reason Stop Dose Admin Acetaminophen 1,000 mg 12/26/24 05:21 Acetaminophen 325 Mg Tablet PO 01/25/25 05:20 Q6H PRN Fever >100 Hydrocodone Bitart/Acetaminophen 1 tab 12/26/24 05:38 12/26/24 09:28 Hydrocodone/Apap 5/325 Tablet PO 12/31/24 05:37 1 tab Q4H PRN Administration pain 4-6 Dextrose 50 ml 12/26/24 05:44 Dextrose 50%-Water Inj 50 Ml Syringe IV 01/25/25 05:43 Q15MIN PRN BG <50 OR BG <70 & pt unresponsive Enoxaparin Sodium 40 mg 12/26/24 09:00 12/26/24 09:01 Enoxaparin Sod Inj 40 Mg/0.4 Ml Syringe SC 01/09/25 08:59 40 mg QDAY DEWAYNE Administration Hydromorphone HCl 0.5 mg 12/26/24 05:26 Hydromorphone Inj 2 Mg/Ml Vial IVP 12/31/24 05:25 Q3H PRN Pain 7-10 Doxycycline Hyclate 100 mg/ 100 mls @ 100 mls/hr 12/26/24 21:00 Sodium Chloride IV 01/02/25 08:59 BID [facility] Ceftriaxone Sodium 2 gm/ 50 mls @ 100 mls/hr 12/27/24 09:00 Sodium Chloride IV 01/02/25 05:36 QDAY [facility] Insulin Human Lispro 0 unit 12/26/24 07:30 12/26/24 08:54 Insulin Lispro (Admelog) 1 Unit/0.01 Ml Unit SC 01/25/25 07:29 Not Given AC [facility] Protocol Ondansetron HCl 4 mg 12/26/24 05:21 Ondansetron Inj 2 Mg/Ml Inj 2 Ml IV 01/25/25 05:20 Q6H PRN NAUSEA OR VOMITING Protocol Pantoprazole Sodium 40 mg 12/26/24 09:00 12/26/24 08:57 Pantoprazole Inj 40 Mg Vial IVP 01/25/25 08:59 40 mg QDAY DEWAYNE Administration Tramadol HCl 50 mg 12/26/24 05:21 Tramadol Hcl 50 Mg Tablet PO 12/31/24 05:20 Q6HR PRN PAIN SCALE 4-6 (Moderate Vitamin B Complex/Vit C/Folic Acid 1 tab 12/26/24 09:00 12/26/24 10:45 Vit B12/Vit C/Fa (Nephrovite) Tablet PO 01/25/25 08:59 1 tab QDAY DEWAYNE Administration Plan Ni Schmid is a 64-y/o female with a PMHx of endometrial carcinoma diagnosed in 2015 s/p robotic hysterectomy and bilateral salpingo-oophorectomy at [facility] in 2016, s/p brachytherapy and external beam radiation for recurrent vaginal cuff tumor in 2018 and chemotherapy until 2021 for the same, 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 Presented on 12/25 for recurrent leakage around Reid catheter, dysuria, and foul-smelling urine x24 hours and admitted for work-up and management of chronic Reid catheter associated UTI and coccygeal osteomyelitis (stage IV sacral ulcer). #Catheter associated UTI #Chronic reid #Microscopic hematuria #Hx of endometrial CA s/p hysterectomy + BSO in 2016, s/p radiation + chemotherapy 2016?2021 Presents for recurrent leakage around Reid catheter, dysuria, and foul-smelling urine x24 hours. Mild leukocytosis WBC 12, UA: 2+ protein, 2+ blood, (+) nitrite and LE, 30 RBC, 4+ bacteria, > 3000 WBC. Chronic reid catheter since 2022 after fibrosis from brachytherapy and radiation to vaginal stump tumor. - Rocephin 2 g daily (12/25/2024-) - As needed acetaminophen 1 g every 6 hours for fever > 100 and pain 1?3 - Oncology consulted, Dr. Meyer, pending recommendations - Follow-up urine culture and blood culture results #Coccygeal osteomyeltiis #Stage IV sacral ulcer #Severe PAD, s/p RLE BKA + LLE 3rd digit amputation Severe PAD diagnosed after iliofemoral runoff testing in 2022. Endorses severe pain in her lower back due to worsening coccygeal pressure ulcer, which she started to develop over the last few months. Also has left lower extremity pain due to calf ulcers and follows up with wound care every Daniel. Recently DC?d from SNF in [place] a few weeks ago after completing her rehab, and currently lives at home with no home wound care. She is chronically wheelchair-bound. CT A/P with contrast 12/25 showed 1. Decubitus ulcer over sacrococcygeal region with presacral soft tissue thickening, fat stranding, lucencies in distal coccyx, suspicious for osteomyelitis. No evidence of loculated abscess. 2. Rectal wall thickening with perirectal fat stranding, suspicious for proctitis. 3. Partially distended gallbladder with gallstones. 4. Wall thickening of the urinary bladder, suspicious for cystitis. 5. 3.1 cm heterogeneously enhancing nodular mass adjacent to superior aspect of the urinary bladder, suspicious for neoplasm. - Referral to wound care - Keep patient on air mattress and position change every 2 hours - Orthopedic surgery consulted for further evaluation - Received vancomycin x 1 in ED -> started doxycycline 100 mg IV BID (12/26-) and rocephin 2 g daily (12/25) #Non-anion gap metabolic acidosis in setting of ileostomy, which is likely etiology of NAGMA. Will continue to monitor for now. #Type 2 diabetes mellitus Blood glucose 265, last A1c in 2021 9%. - SSI with Accu-Checks #Hyperlipidemia Pending med rec #Normocytic anemia, secondary to #Iron deficiency Normocytic anemia Hb 9.4 MCV 89. Iron panel: Iron 23, TIBC 601, iron saturation 3%, unsaturated iron binding 578 - Started on daily Nephro-Jerri 1 tab Hospital management: Disposition: pending orthopedics, oncology, and infectious disease recommendations Fluids: none Diet: dysphagia 2 Lines: PIV DVT prophylaxis: enoxaparin GI prophylaxis: pantoprazole CODE STATUS: limited code, no chest compressions ----- Plan discussed with attending physician Dr. Imtiaz Callejas MD PGY-1 Internal Medicine Attending Provider Attestation/Addendum I have discussed and was present for the essential components of the history, physical examination, diagnosis, and treatment plan with the resident. I agree with the patient's care as documented by the resident and amended herein by me. Israel Kitchen DO. Patient seen and evaluated this AM. No acute events overnight, vital signs stable, patient afebrile. His significant labs include a normal WBC, hemoglobin 9.3, chloride 110, bicarb 16, UA positive, WBCs greater than 3000. Patient subsequently admitted for catheter associated UTI, stage IV sacral ulcer with associated osteomyelitis, and bladder mass. Will continue patient on ceftriaxone and doxycycline at this time, follow-up with blood and urine cultures, wound care order placed, orthopedic surgery consulted by admitting team, we will also consult infectious disease for antibiotic recommendations which may need to be long-term. Of note, the patient apparently was discharged from SNF in early November and has been living at home with a solutions executive cloud sales since that time. This is not a 24/7 solutions executive cloud sales but the patient states she is doing a great job and concern for the patient's wellbeing at home, we will look into an APS consult at this time, socially responsible investment adviser notified. Will continue to monitor closely Although this document has been carefully reviewed, there may still be some phonetic and other typographical errors. These errors are purely grammatical due to imperfections in the software program and should not be construed in any way to compromise the substance of the patient's medical care during this visit.
[2024-12-26] MEDS: DiphenhydrAMINE ELIX 25 MG/10 ML UDC 12.5 MG PO (15:07)
[2024-12-26] MEDS: traMADol HCL 50 MG TABLET PO (15:07)
[2024-12-26 16:00] VITALS: BP 149/77; PULSE 99; RESP 16; TEMP 36.7; O2SAT 100
--- NOTE | 2024-12-26 17:22 | ESCONSULT_ITS ---
RE: MONTY MOORE : 1960 DATE OF CONSULTATION: 12/26/2024 Thank you, Dr. Dunaway, for asking me to consult the patient, whom I saw on 12/26/2024. I believe that I am consulted for a decubitus ulcer. I talked to patient and she explained to me that she is basically laying in bed for a few months. The patient was in a fci and later on she was transferred to home. The patient had decubitus ulcer. An abdominal pelvis CT scan revealed osteomyelitis of the coccygeal region. The patient is also status post right [id number] amputation and also has some infection in the left lower limb. PAST MEDICAL HISTORY: The patient has history of diabetes mellitus. There is a leakage around the Michel catheter. Physical examination revealed her to be alert and oriented lady. There is a decubitus ulcer. Beside that, there is [id number] amputation. Abdominal pelvis CT scan was reviewed. The patient has decubitus ulcer with osteomyelitis of the coccygeal region. I do not do these kind of surgical procedure. I have not done these kind of surgical procedure in my career. The patient is also needing for the hrqjw-ech-[id number] amputation. Accordingly, I would strongly recommend patient to be transferred to a center where the decubitus ulcer surgical procedure could be taken care of. I was also told by the patient that this ulcer is present for a few months now. I believe , the general surgeon, does these kind of procedure and it may be a good idea to obtain consult from , the general surgeon for the [id number] amputation wound and decubitus ulcer. Since it is beyond the scope of my practice, therefore I am signing off. Once again, I thank you for letting me take part in the management of the patient. DT: 14:03:49 TT: 16:10:00 Ref: [id number] - TID: [id number]
[2024-12-26 20:00] VITALS: BP 131/63; PULSE 90; RESP 16; TEMP 37.2; O2SAT 98
[2024-12-27] VITALS: BP 126/58; PULSE 78; RESP 15; TEMP 36.8; O2SAT 99
[2024-12-27 04:00] VITALS: BP 129/72; PULSE 84; RESP 16; TEMP 36.9; O2SAT 94
--- NOTE | 2024-12-27 05:28 | ECHO_ITS ---
Transthoracic Echo Report Ht (in): 65 Wt (lb): 140 Exam Location: Echo Lab Status: Inpatient Monitoring Tech: RADHA Hardwick^^^^ Indications: Procedure Performed: BP: 124 / 74 HR: 96 Technical Quality: Very technically difficult study MEASUREMENTS (Male / Female) Normal Values 2D ECHO LV Diastolic Diameter PLAX 3.6 cm 4.2 - 5.9 / 3.9 - 5.3 cm LV Systolic Diameter PLAX 2.5 cm IVS Diastolic Thickness 0.6 cm 0.6 - 1.0 / 0.6 - 0.9 cm LVPW Diastolic Thickness 0.7 cm 0.6 - 1.0 / 0.6 - 0.9 cm LV Relative Wall Thickness 0.4 LVOT Diameter 1.5 cm Aortic Root Diameter 2.5 cm LA Systolic Diameter LX 3.2 cm 3.0 - 4.0 / 2.7 - 3.8 cm LV Ejection Fraction MOD BP 61.1 % >= 55 % LV Cardiac Index MOD BP 3172.9 cm?/min?m? LV Ejection Fraction MOD 4C 65.3 % LV Cardiac Index MOD 4C 4798.6 cm?/min?m? LV Ejection Fraction 4C AL 66.7 % LV Cardiac Index 4C AL 5116.8 cm?/min?m? LV Ejection Fraction MOD 2C 59.8 % LV Cardiac Index MOD 2C 2163.9 cm?/min?m? LV Ejection Fraction 2C AL 60.1 % LV Cardiac Index 2C AL 2192.3 cm?/min?m? LA Volume Index 29.1 cm?/m? 16 - 28 cm?/m? DOPPLER AV Peak Velocity 196.3 cm/s AV Peak Gradient 15.4 mmHg AV Mean Gradient 11.0 mmHg AV Velocity Time Integral 36.0 cm LVOT Peak Velocity 96.1 cm/s LVOT Peak Gradient 3.7 mmHg LVOT Velocity Time Integral 23.9 cm LVOT Cardiac Index 2367.6 cm?/min?m? AV Area Cont Eq vti 1.2 cm? AV Area Cont Eq pk 0.9 cm? MV Area PHT 3.9 cm? Mitral E Point Velocity 74.9 cm/s Mitral A Point Velocity 101.0 cm/s Mitral E to A Ratio 0.7 LV E' Lateral Velocity 10.1 cm/s Mitral E to LV E' Lateral Ratio 7.4 LV E' Septal Velocity 7.3 cm/s Mitral E to LV E' Septal Ratio 10.2 TR Peak Velocity 222.7 cm/s TR Peak Gradient 19.8 mmHg PV Peak Velocity 81.8 cm/s PV Peak Gradient 2.7 mmHg RVOT Peak Velocity 53.2 cm/s FINDINGS Left Ventricle Normal left ventricular size, wall thickness, systolic function with no obvious regional wall motion abnormalities. There is grade I diastolic dysfunction of the left ventricle (impaired relaxation pattern). The ejection fraction is visually estimated at 55-60%. Right Ventricle The right ventricle is normal in size and systolic function. The estimated right ventricular systolic pressure, 20 mmHg. Left Atrium The left atrium is normal by two-dimensional, color flow and Doppler imaging with no structural abnormalities, no thrombus formation present. Right Atrium The right atrium is normal by two-dimensional imaging, color flow and Doppler imaging with no structural abnormalities, no thrombus formation present. Atrial Septum The interatrial septum appears normal with no evidence of a shunt. Aorta The aorta is normal by two-dimensional, color flow and Doppler interrogation. Mitral Valve Trace to mild mitral regurgitation. Mild mitral annular calcification. Aortic Valve Mild aortic valve stenosis, mean gradient 11 mmHg, GENA 1.2 cm?. Tricuspid Valve There is mild tricuspid valve regurgitation. Pulmonic Valve Trivial pulmonic valve regurgitation. Vessels The pulmonary artery appears normal. The inferior vena cava pulmonary and hepatic veins appear normal. Pericardium The pericardium is normal by two-dimensional imaging. There is no significant pericardial effusion. CONCLUSIONS Indication: Hx of endometrial CA LV size and function normal with an estimated EF of 55 to 60%. Diastolic dysfunction stage I. Normal RV size and function with normal RVSP of 25 mmHg. Mild TR. Moderate aortic valve sclerosis with possible mild stenosis. V-max is only 2.2-2.3 m/s mean gradient is 11 mmHg but valve area is 1.2 cm?. Mild MAC along with mild beginning of the mitral leaflets along with mild MR. Jeovanny Travis (Electronically Signed) Final Date: 28 December 2024 10:37
[2024-12-27 08:00] VITALS: BP 127/51; PULSE 82; RESP 17; TEMP 36.7; O2SAT 99
--- NOTE | 2024-12-27 08:20 | ESCONSULT_ITS ---
HPI Data of Consult Requesting Physician: Eddi Reyes MD Primary Care Provider: Emiliano Rosas MD Consult Narrative Reason for consult: History of recurrent endometrial cancer History of present illness: Patient is a 64-year-old lady who had history of endometrial carcinoma diagnosed in 2016 status post robotic hysterectomy ROMAN/BSO [facility] 2016. Recurrence noted in 2019 had had external beam [place] and brachytherapy [facility] completed 2019 with chemotherapy also done in [place]. Developed rectovaginal fistula and underwent ileostomy. Patient has had chronic indwelling Michel since 2022 and had to deal with recurrent infections. Admitted with catheter associated UTI with leukocytosis, elevated sed rate and consider GI osteomyelitis in the setting of stage IV sacral ulcer. Abdominal pelvic CT 12/25/2024 large soft tissue ulceration in the posterior lower back with osteomyelitis consider segments. There was a 3 cm enhancing mass contiguous with the anterior urinary bladder. Patient now referred for oncological consultation. cc:: cc: Eddi Reyes MD Past Medical History Family History OTHER FAMILY HX: Denies history of cancers Social History SOCIAL: Retired from [employer] denies smoking drinking Past Medical History Comments PMH COMMENT: History of endometrial CA status post prior surgery radiation chemo, developed fistula now with possible recurrence in the bladder. Meds Home Medications and Allergies Home Medications ?Medication ?Instructions ?Recorded ?Confirmed ?Type atorvastatin 40 mg tablet 40 mg PO DAILY 04/03/2203/20 History ergocalciferol (vitamin D2) 1,250 1 cap PO WMHS 04/04/22 History mcg (50,000 unit) capsule insulin lispro 100 unit/mL 5 unit subcut TIDACHS 04/0312/26/24 History subcutaneous pen acetaminophen 325 mg tablet 650 mg PO Q6H PRN pain 07/1412/26/24 History (Aminofen) ascorbic acid (vitamin C) 250 mg 250 mg PO QDAY 12/26/24 History tablet (Vitamin C) gabapentin 300 mg capsule 300 mg PO TID 12/26/2412/26 History megestrol 400 mg/10 mL (40 mg/mL) 400 mg PO QDAY 12/2612/26/24 History oral suspension methocarbamol 500 mg tablet 500 mg PO BID 12/26/2407/14 History multivitamin with minerals-ferrous tab PO QDAY 5 History sulfate 15 mg iron tablet nystatin 100,000 unit/gram topical 1 applic topical QD AY 12/26/24 12/26/24 History powder (Klayesta) Allergies Allergy/AdvReac Type Severity Reaction Status Date / Time latex AdvReac Mild RASH Verified 07/02/22 12:28 morphine AdvReac Unknown Verified 07/02/22 12:28 Exam Vital Signs Temp Pulse Resp BP Pulse Ox O2 Del Method 98.4 F 84 16 129/72 94 L Room Air 12/27/24 04:00 12/27/24 04:00 12/27/24 04:00 12/27/24 04:00 12/27/24 04:00 12/27/24 04:00 Narrative Exam Appears comfortable in no acute distress Results Labs 12/26/24 08:50 12/26/24 08:50 Labs: Short CBC 12/26/24 Range/Units 08:50 WBC 10.5 (3.6-11.0) Thou/mm3 Hgb 9.3 L (12.0-16.0) g/dL Hct 28.2 L (36.0-46.0) % Plt Count 357 (140-440) Thou/mm3 BMP 12/26/24 08:50 Sodium 137 Potassium 4.2 Chloride 110 H Carbon Dioxide 16.3 L BUN 14 Creatinine 0.6 Glucose 177 H D Calcium 8.8 Assessment and Plan Additional Assessment & Plan Additional Plan: 1. 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 2. Complications of rectovaginal fistula status post ileostomy coccygeal osteomyelitis stage IV sacral ulcer chronic Michel now admitted with catheter associated UTI leukocytosis. 3. Possible malignancy in anterior urinary bladder region. May be related to the prior uterine cancer with vaginal recurrence or possible separate primary. Recommend urologist see patient for cystoscopy with biopsy
[2024-12-27] MEDS: PANTOPRAZOLE INJ 40 MG VIAL IVP (08:26)
[2024-12-27] MEDS: ENOXAPARIN SOD INJ 40 MG/0.4 ML SYRINGE SC (08:27)
[2024-12-27] MEDS: VIT B12/Vit C/FA (Nephrovite) TABLET 1 TAB PO (08:27)
[2024-12-27] MEDS: traMADol HCL 50 MG TABLET PO (08:27)
--- NOTE | 2024-12-27 09:31 | PD.IDPROG ---
Subjective Subjective Interval history: 64 y/o with very flat affect and recent dx of ca. no line noted. here for reid out. pyuria noted with no sx. has had reid since rectovag fistula noted in 2016 Exam Vital Signs Temp Pulse Resp BP Pulse Ox O2 Del Method 98.4 F 84 16 129/72 94 L Room Air 12/27/24 04:00 12/27/24 04:00 12/27/24 04:00 12/27/24 04:00 12/27/24 04:00 12/27/24 04:00 Narrative Exam recent rt aka noted. ischemia of L leg noted too. ct with presumptive osteo of sacrum. bc with gpc see photos very flat affect noted. Objective - Internal Medicine Labs 12/26/24 08:50 12/26/24 08:50 Labs: Laboratory Results - last 24 hr 12/26/24 08:50 Sodium 137 Potassium 4.2 Chloride 110 H Carbon Dioxide 16.3 L Anion Gap 11 BUN 14 Creatinine 0.6 Estim Creat Clear Calc 84.1 eGFR > 60 BUN/Creatinine Ratio 23 H Glucose 177 H D Calculated Osmolality 278 Calcium 8.8 Iron 23 L TIBC 601 H Iron Saturation 3 L Unsat Iron Binding 578 H Assessment & Plan A&P Narrative 1. History of ROMAN/BSO uterine carcinoma [facility] 2016 vaginal recurrence 2019 external beam and brachytherapy along with chemotherapy. 2. Complications of rectovaginal fistula status post ileostomy coccygeal osteomyelitis stage IV sacral ulcer chronic Reid now admitted with catheter associated UTI leukocytosis. bacteremia with gpc. no line. persistent 12/25 and 12/26. ua abn . not cultured. no sx. doubt this is a focus possible sacral osteo. see ct report the best rx for a du is pressure avoidance. she can not turn independently, so needs help. abx choice depends on echo and repeat bc, will see again fri pm and Friday am hope to have echo by then. ideally one has a biopsy of the area of concern. with culture, but we can use bc if they are significantly positive probable pvd with prior rt aka noted. Time Spent With Patient Time: Total time spent is greater than 50% in coordination of care (as documented) at patient's floor/unit and/or counseling patient:
[2024-12-27 10:25] LABS: Basophils % (Auto) 0 % (0-2.5); Eosinophils # (Auto) 0.5 Thou/mm3 (0.0-0.5); Eosinophils % (Auto) 5 % (0-10); Hematocrit 27.2 % (36.0-46.0); Immature Granulocytes % (Auto) 0 % (0-0); Immature Granulocytes Auto 0.03 Thou/mm3 (0.00-0.00); Lymphocytes # (Auto) 2.3 Thou/mm3 (1.0-4.8); Lymphocytes % (Auto) 22 % (10-50); Mean Corpuscular HGB Conc 32.4 g/dl (31.0-37.0); Mean Corpuscular Hemoglobin 29.2 pg (25.0-35.0); Mean Corpuscular Volume 90 fL (80-100); Monocytes # (Auto) 0.7 Thou/mm3 (0.0-0.8); Monocytes % (Auto) 7 % (0-12); Neutrophils # (Auto) 6.7 Thou/mm3 (1.8-7.7); Neutrophils % (Auto) 66 % (37-80); Nucleated Red Blood Cell % 0 /100 WBC (0); Platelet Count 407 Thou/mm3 (140-440); RDW Standard Deviation 43.3 fL (36.4-46.3); Red Blood Count 3.01 Miln/mm3 (4.00-5.20); White Blood Count 10.1 Thou/mm3 (3.6-11.0)
[2024-12-27 10:32] LABS: INR 1.1 (0.9-1.3); Partial Thromboplastin Time 38.2 Seconds (22.0-36.0); Prothrombin Time 12.4 Seconds (9.0-12.2)
[2024-12-27 10:33] LABS: Hemoglobin 8.8 g/dL (12.0-16.0)
--- NOTE | 2024-12-27 10:49 | ESCONSULT_ITS ---
<Statement entered by Cayden Viera MD - 01/05/25 10:28> pt seen with resident. 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 Who presented to the ED with severe pain in her lower back due to worsening coccygeal pressure ulcer, which has been present over the last few months. Patient was recently discharged from longterm facility in [place] a few weeks ago after completing her rehab, and currently lives at home. She is chronically wheelchair-bound, and her sister is her medical decision-maker. ID consulted for suspected osteomyelitis. PMH & surgical history as above. cc:: cc: Germain Kitchen DO Exam Vital Signs Temp Pulse Resp BP Pulse Ox O2 Del Method 99.4 F 103 H 18 137/65 H 98 Room Air 01/03/25 08:00 01/03/25 08:00 01/03/25 08:00 01/03/25 08:00 01/03/25 08:00 01/03/25 08:00 Results Labs 01/03/25 05:41 01/03/25 05:41 Labs: Short CBC 01/03/25 01/03/25 Range/Units 00:24 05:41 WBC 11.3 H (3.6-11.0) Thou/mm3 Hgb 7.9 L 8.1 L (12.0-16.0) g/dL Hct 23.9 L 25.0 L (36.0-46.0) % Plt Count 406 (140-440) Thou/mm3 BMP 01/03/25 05:41 Sodium 135 L Potassium 3.9 Chloride 102 Carbon Dioxide 23.1 BUN 5 L Creatinine 0.6 Glucose 128 H D Calcium 8.7 Liver Function 01/03/25 Range/Units 05:41 Total Bilirubin 0.2 L (0.3-1.2) mg/dL AST 12 (0-34) U/L ALT < 7 L (10-49) U/L Alkaline Phosphatase 76 (46-116) U/L Albumin 3.3 L (3.4-4.8) gm/dL Quality Measures Quality Measures VTE prophylaxis (Lovenox on hold ) Advance care planning discussed with:: patient Medications Home Medications and Allergies Home Medications ?Medication ?Instructions ?Recorded ?Confirmed ?Type atorvastatin 40 mg tablet 40 mg PO DAILY 04/03/2212/18 History ergocalciferol (vitamin D2) 1,250 1 cap PO WMHS 12/29/24 History mcg (50,000 unit) capsule insulin lispro 100 unit/mL 5 unit subcut TIDACHS 04/0312/29/24 History subcutaneous pen acetaminophen 325 mg tablet 650 mg PO Q6H PRN pain 07/1412/29/24 History (Aminofen) ascorbic acid (vitamin C) 250 mg 250 mg PO QDAY 12/29/24 History tablet (Vitamin C) gabapentin 300 mg capsule 300 mg PO TID 12/26/2412/29 History megestrol 400 mg/10 mL (40 mg/mL) 400 mg PO QDAY 12/2612/29/24 History oral suspension methocarbamol 500 mg tablet 500 mg PO BID 12/26/2410/13 History multivitamin with minerals-ferrous tab PO QDAY 5 History sulfate 15 mg iron tablet nystatin 100,000 unit/gram topical 1 applic topical QD AY 12/26/24 12/29/24 History powder (Klayesta) Allergies Allergy/AdvReac Type Severity Reaction Status Date / Time fentanyl AdvReac Mild Numbness Verified 01/03/25 12:35 latex AdvReac Mild RASH Verified 01/03/25 12:35 morphine AdvReac Unknown Verified 01/03/25 12:35 Visit Medications Acetaminophen (Acetaminophen 325 Mg Tablet) 650 mg PO Q4HR PRN PRN Reason: PAIN SCALE 1-3 (mild Stop: 02/01/25 11:39 Acetaminophen (Acetaminophen 500 Mg Tablet) 1,000 mg PO Q6H PRN PRN Reason: Fever >100 Stop: 01/25/25 05:20 Al Hydrox/Mg Hydrox/Simethicone (Mg Hyd/Al Hyd/Ashley (Maalox Reg) Susp 30 Ml Udc) 30 ml PO Q4HR PRN PRN Reason: UPSET STOMACH/INDIGESTION Stop: 02/01/25 10:54 Last Admin: 01/02/25 11:59 Dose: 30 ml Atorvastatin Calcium (Atorvastatin Calcium 20 Mg Tablet) 40 mg PO HS DEWAYNE Stop: 01/29/25 20:59 Last Admin: 01/02/25 20:49 Dose: Not Given Calamine (Calamine Lotion 120 Ml Btl) 0 ml TOP UD PRN PRN Reason: ITCHING Stop: 01/27/25 14:43 Dextrose (Dextrose 50%-Water Inj 50 Ml Syringe) 50 ml IV Q15MIN PRN PRN Reason: BG <50 OR BG <70 & pt unresponsive Stop: 01/25/25 05:43 Dicyclomine HCl (Dicyclomine 10 Mg Capsule) 10 mg PO QID PRN; Protocol PRN Reason: ABDOMINAL CRAMPING Stop: 02/01/25 15:36 Last Admin: 01/02/25 17:05 Dose: 10 mg Diphenhydramine HCl (Diphenhydramine 25 Mg Capsule) 25 mg PO HS [facility] Stop: 01/26/25 23:39 Last Admin: 01/02/25 23:25 Dose: 25 mg Enoxaparin Sodium (Enoxaparin Sod Inj 40 Mg/0.4 Ml Syringe) 40 mg SC QDAY DEWAYNE Stop: 01/09/25 08:59 Last Admin: 01/02/25 08:54 Dose: 40 mg Vancomycin/Sodium Chloride (Vancomycin/Ns 500 Mg Ivpb) 100 mls @ 120 mls/hr IV Q12H DEWAYNE; Protocol Stop: 01/07/25 09:59 Last Admin: 01/02/25 20:50 Dose: 129 mls/hr Insulin Human Lispro (Insulin Lispro (Admelog) 1 Unit/0.01 Ml Unit) 0 unit SC AC DEWAYNE; Protocol Stop: 01/25/25 07:29 Last Admin: 01/02/25 17:24 Dose: Not Given Lidocaine (Lidocaine 5% 1 Patch) 1 patch TOP QDAY PRN PRN Reason: back pain Stop: 02/02/25 08:59 Methocarbamol (Methocarbamol 500 Mg Tablet) 500 mg PO BID [facility] Stop: 01/29/25 08:59 Last Admin: 01/02/25 20:42 Dose: 500 mg Nitrofurantoin Macrocrystals (Nitrofurantoin Macro 100 Mg Capsule) 100 mg PO BID [facility] Stop: 01/05/25 13:14 Last Admin: 01/02/25 20:43 Dose: 100 mg Ondansetron HCl (Ondansetron Inj 2 Mg/Ml Inj 2 Ml) 4 mg IV Q6H PRN; Protocol PRN Reason: NAUSEA OR VOMITING Stop: 01/25/25 05:20 Pantoprazole Sodium (Pantoprazole 40 Mg Tablet) 40 mg PO QDAY [facility] Stop: 01/25/25 08:59 Last Admin: 01/02/25 08:55 Dose: 40 mg Pharmacy Consult (Vancomycin Pharmacy To Dose 1 Each Each) 1 each IV QDAY PRN PRN Reason: PROTOCOL Stop: 01/26/25 09:44 Simethicone (Simethicone 80 Mg Chew) 80 mg PO QID PRN PRN Reason: GAS Stop: 01/29/25 15:37 Vitamin B Complex/Vit C/Folic Acid (Vit B12/Vit C/Fa (Nephrovite) Tablet) 1 tab PO QDAY [facility] Stop: 01/25/25 08:59 Last Admin: 01/02/25 08:54 Dose: 1 tab Discontinued Medications Acetaminophen (Acetaminophen 325 Mg Tablet) 1,000 mg PO Q6H PRN PRN Reason: Fever >100 Stop: 01/25/25 05:20 Acetaminophen (Acetaminophen 500 Mg Tablet) 1,000 mg PO Q6H PRN PRN Reason: Fever >100 Stop: 01/25/25 05:20 Acetaminophen (Acetaminophen Supp 650 Mg Supp) 650 mg MI X1 ONE Stop: 01/03/25 01:27 Hydrocodone Bitart/Acetaminophen (Hydrocodone/Apap 10/325 Tab) 1 tab PO X1 ONE Stop: 12/25/24 22:18 Last Admin: 12/26/24 01:15 Dose: 1 tab Hydrocodone Bitart/Acetaminophen (Hydrocodone/Apap 5/325 Tablet) 1 tab PO Q4H PRN PRN Reason: pain 4-6 Stop: 12/31/24 05:37 Last Admin: 12/28/24 20:04 Dose: 1 tab Diphenhydramine HCl (Diphenhydramine Elix 25 Mg/10 Ml Udc) 12.5 mg PO X1 ONE Stop: 12/26/24 14:51 Last Admin: 12/26/24 15:07 Dose: 12.5 mg Diphenhydramine HCl (Diphenhydramine 25 Mg Capsule) 25 mg PO X1 ONE Stop: 12/27/24 15:04 Last Admin: 12/27/24 15:34 Dose: 25 mg Heparin Sodium (Beef Lung) (Heparin Sod Lock Syr 100 Unit/Ml) 500 unit STFIELD X1 ONE Stop: 12/31/24 14:22 Last Admin: 12/31/24 14:26 Dose: 500 unit Hydromorphone HCl (Hydromorphone Inj 2 Mg/Ml Vial) 0.5 mg IVP Q3H PRN; Protocol PRN Reason: Pain 7-10 Stop: 12/31/24 05:25 Ceftriaxone Sodium 2 gm/ (Sodium Chloride) 50 mls @ 100 mls/hr IV X1 ONE Stop: 12/26/24 03:26 Last Infusion: 12/26/24 07:49 Dose: Infused Vancomycin HCl 2,000 mg/ (Sodium Chloride) 500 mls @ 150 mls/hr IV X1 ONE Stop: 12/26/24 07:30 Last Admin: 12/26/24 10:49 Dose: 150 mls/hr Doxycycline Hyclate 100 mg/ (Sodium Chloride) 100 mls @ 100 mls/hr IV BID [facility] Stop: 01/02/25 08:59 Last Admin: 12/27/24 10:04 Dose: Not Given Ceftriaxone Sodium 2 gm/ (Sodium Chloride) 50 mls @ 100 mls/hr IV QDAY [facility] Stop: 01/02/25 05:36 Last Infusion: 12/29/24 10:01 Dose: Infused Doxycycline Hyclate 100 mg/ (Sodium Chloride) 100 mls @ 100 mls/hr IV X1 ONE Stop: 12/26/24 06:59 Last Infusion: 12/26/24 09:44 Dose: Infused Magnesium Sulfate (Magnesium Sulfate Ivpb) 2 gm in 50 mls @ 25 mls/hr IV X1 ONE Stop: 12/26/24 07:43 Last Infusion: 12/26/24 10:36 Dose: Infused Vancomycin/Sodium Chloride (Vancomycin/Ns 1 Gm Ivpb) 200 mls @ 120 mls/hr IV BID@1000,2200 DEWAYNE; Protocol Stop: 01/03/25 09:59 Last Admin: 12/27/24 16:51 Dose: Not Given Ceftriaxone Sodium 2 gm/ (Sodium Chloride) 50 mls @ 100 mls/hr IV X1 ONE Stop: 12/27/24 17:19 Last Admin: 12/27/24 17:00 Dose: 100 mls/hr Vancomycin/Sodium Chloride (Vancomycin/Ns 1 Gm Ivpb) 200 mls @ 120 mls/hr IV BID@1000,2200 DEWAYNE; Protocol Stop: 01/03/25 17:29 Last Admin: 12/28/24 23:03 Dose: Not Given Magnesium Sulfate (Magnesium Sulfate Ivpb) 4 gm in 50 mls @ 12.5 mls/hr IV X1 ONE Stop: 12/28/24 13:37 Last Admin: 12/28/24 11:19 Dose: 12.5 mls/hr Vancomycin/Sodium Chloride (Vancomycin/Ns 750 Mg Ivpb) 750 mg in 150 mls @ 120 mls/hr IV BID@1000,2200 DEWAYNE; Protocol Stop: 01/05/25 09:59 Last Admin: 12/30/24 22:29 Dose: Not Given Meropenem 1,000 mg/ Sodium (Chloride) 50 mls @ 100 mls/hr IV Q8HR DEWAYNE Stop: 01/05/25 13:59 Magnesium Sulfate (Magnesium Sulfate Ivpb) 4 gm in 50 mls @ 12.5 mls/hr IV X1 ONE Stop: 12/30/24 13:34 Last Admin: 12/30/24 10:31 Dose: 12.5 mls/hr Magnesium Sulfate (Magnesium Sulfate Ivpb) 4 gm in 50 mls @ 12.5 mls/hr IV X1 ONE Stop: 01/01/25 13:01 Last Admin: 01/01/25 09:46 Dose: 12.5 mls/hr Insulin Human Lispro (Insulin Lispro (Admelog) 1 Unit/0.01 Ml Unit) 0 unit SC AC DEWAYNE; Protocol Stop: 01/25/25 07:29 Last Admin: 12/29/24 07:55 Dose: 3 unit Lidocaine (Lidocaine 5% 1 Patch) 1 patch TOP UD PRN PRN Reason: PAIN Stop: 02/02/25 01:25 Lidocaine HCl (Lidocaine Inj Pf 1% 30 Ml Vial) 10 ml INFL X1 ONE Stop: 12/31/24 14:22 Last Admin: 12/31/24 14:26 Dose: 10 ml Oxycodone/Acetaminophen (Oxycodone/Apap 5/325 Tablet) 1 tab PO Q4H PRN PRN Reason: PAIN SCALE 4-6 (Moderate Stop: 12/31/24 05:20 Oxycodone/Acetaminophen (Oxycodone/Apap 5/325 Tablet) 1 tab PO Q6HR PRN; Protocol PRN Reason: PAIN SCALE 4-10(Mod-Sev Stop: 01/03/25 08:32 Last Admin: 01/02/25 20:42 Dose: 1 tab Pantoprazole Sodium (Pantoprazole Inj 40 Mg Vial) 40 mg IVP QDAY DEWAYNE Stop: 01/25/25 08:59 Last Admin: 12/31/24 08:30 Dose: 40 mg Silver Nitrate (Silver Nitrate 1 Appl Ea) 3 appl TOP X1 ONE Stop: 12/27/24 13:51 Last Admin: 12/27/24 15:37 Dose: Not Given Tramadol HCl (Tramadol Hcl 50 Mg Tablet) 50 mg PO Q6HR PRN PRN Reason: PAIN SCALE 4-6 (Moderate Stop: 12/31/24 05:20 Last Admin: 12/27/24 08:27 Dose: 50 mg Vancomycin/Sodium Chloride (Vancomycin In Ns 1 Gm/200 Ml Bag) 1 gm IV X1 ONE Stop: 12/27/24 16:52 Last Admin: 12/27/24 18:04 Dose: Not Given Assessment & Plan Plan 64-year-old female with past medical history of endometrial carcinoma diagnosed in 2016 s/p robotic hysterectomy and bilateral salpingo-oophorectomy at [facility] in 2017, s/p brachytherapy hand external beam radiation for recurrent vaginal cuff tumor in 2018, and chemotherapy until 2021 for the same, 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 Who presented to the ED with severe pain in her lower back due to worsening coccygeal pressure ulcer, which has been present over the last few months. Patient was recently discharged from longterm facility in [place] a few weeks ago after completing her rehab, and currently lives at home. She is chronically wheelchair-bound, and her sister is her medical decision-maker. ID consulted for suspected osteomyelitis. #Coccygeal osteomyeltiis #Stage IV sacral ulcer #GPC bacteremia -CT: Large soft tissue ulceration in the posterior lower back with osteomyelitis coccygeal segments -Currently on Rocephin and vancomycin -Surgery consulted as well for possible debridement -Recommend bone biopsy to narrow down abx for osteo -GPC growing on BC from the 8th, can be contaminant, pending result Rest of problems managed by primary team Patient's care discussed with attending physician, Dr Aylin Stallworth MD PGY3
[2024-12-27 10:53] LABS: Anion Gap 9 (7-16); BUN/Creatinine Ratio 17 Ratio (12-20); Blood Urea Nitrogen 10 mg/dL (9-23); Carbon Dioxide 19.1 mMol/L (20.0-31.0); Cardiac Risk Estimate 4.2 RATIO (3.7-5.6); Chloride 109 mMol/L (98-107); Cholesterol 134 mg/dL (132-200); Creatinine (Component) 0.6 mg/dL (0.6-1.3); Estimated Creatinine Clearance 84.1 mL/min (>60); Glucose 155 mg/dL (74-106); Glucose Estimated Average 169 mg/dL (80-131); HDL Cholesterol 32 mg/dL (40-60); Hemoglobin A1C 7.5 % Hgb (4.8-6.0); LDL Cholesterol,Calculated 82 mg/dL (0-130); Magnesium 1.7 mg/dL (1.6-2.6); Osmolality,Calculated 275 (275-295); Phosphorous 3.9 mg/dL (2.4-5.1); Potassium 4.1 mMol/L (3.4-5.1); Sodium 137 mMol/L (136-145); Triglycerides 100 mg/dL (30-150); eGFR > 60 See Note
[2024-12-27 11:07] VITALS: BMI 23.3
[2024-12-27 12:00] VITALS: BP 165/76; PULSE 87; RESP 18; TEMP 36.7; O2SAT 94
--- NOTE | 2024-12-27 12:01 | ESCONSULT_ITS ---
RE: MONTY MOORE : 1960 DATE OF CONSULTATION: 12/27/2024 REFERRING PHYSICIAN: Dr. Reyes. REASON FOR CONSULTATION: Sacral osteomyelitis. HISTORY OF PRESENT ILLNESS: The patient is an unfortunate 64-year-old who is here for Michel catheter removal. She had blood cultures done and GPC was found. She have been febrile, they have been repeated. Urinalysis was done, but no culture was performed. She has no urinary symptoms. She has hyperlipidemia, peripheral opacities, colon cancer, diabetes, vaginal cancer with recurrence and rectovaginal fistula and may have malignant disease in her sacrum as well, although we do not know if that is for certain. She has not had a biopsy of the area. SURGICAL HISTORY: Includes ostomy with a rectovaginal fistula in 2016, a urinary catheter at that time, and right [id number] amputation done about 6 weeks ago and healing uneventfully. ALLERGIES: TO LATEX AND MORPHINE, CAUSING RASHES. IMMUNIZATIONS: Last tetanus is not known. She does take flu shot every year and has had 2 COVID vaccines and may have had pneumococcal and is not certain. FAMILY HISTORY: Unremarkable. SOCIAL HISTORY: She lives alone with a caregiver. She is a lifelong nonsmoker. ASSESSMENT AND PLAN: Presumptive sacral osteomyelitis with positive blood cultures. The blood cultures may be contaminated. It is hard to know at this stage and is reported as GPCs. It could be a coag neg staph species, so we will get repeat bc and an echo is pending. Repeat blood cultures will be done tomorrow. I will check on her again on Friday. DT: 09:42:55 TT: 11:20:00 Ref: [id number] - TID: [id number] MTDD
--- NOTE | 2024-12-27 13:10 | PD.SURCONS ---
HPI Consult details History of present illness: 64F with HLD, DMII, PAD s/p R AKA, history of uterine CA dx in 2016 s/p surgery and chemoradiation, rectovaginal fistula s/p ileostomy, chronic indwelling reid since 2022 who presented 12/26 for leakage around the reid and dysuria. Pt also reported pain at the site of her known sacral decubitus ulcer. Pt reports she had her R AKA weeks ago in [place]. The stump has a few areas of dehiscence which were being dressed BID. Pt also states she sees a vascular surgeon in [place] who determined she has adequate circulation of the left lower extremity PMH: HLD, DMII, PAD, uterine CA dx in 2015 PSHx: Hysterectomy with BSO 2016, left distal phalanx toe amputation 2021, ileostomy 2022, R AKA 2024 Meds: No antiplt or anticoagulation Allergies: Morphine Social hx: Nonsmoker Review of Systems Review of Systems ROS Unobtainable: All systems reviewed & no additional complaints except as documented Meds Home Medications and Allergies Home Medications ?Medication ?Instructions ?Recorded ?Confirmed ?Type atorvastatin 40 mg tablet 40 mg PO DAILY 04/03/22 04/04/22 History ergocalciferol (vitamin D2) 1,250 1 cap PO WMHS 04/03/22 04/04/22 History mcg (50,000 unit) capsule insulin lispro 100 unit/mL 5 unit subcut TIDACHS 04/03/22 12/26/24 History subcutaneous pen acetaminophen 325 mg tablet 650 mg PO Q6H PRN pain 12/26/24 12/26/24 History (Aminofen) ascorbic acid (vitamin C) 250 mg 250 mg PO QDAY 12/26/24 12/26/24 History tablet (Vitamin C) gabapentin 300 mg capsule 300 mg PO TID 12/26/24 12/26/24 History megestrol 400 mg/10 mL (40 mg/mL) 400 mg PO QDAY 12/26/24 12/26/24 History oral suspension methocarbamol 500 mg tablet 500 mg PO BID 12/26/24 12/26/24 History multivitamin with minerals-ferrous tab PO QDAY 12/26/24 History sulfate 15 mg iron tablet nystatin 100,000 unit/gram topical 1 applic topical QDAY 12/26/24 12/26/24 History powder (Klayesta) Allergies Allergy/AdvReac Type Severity Reaction Status Date / Time latex AdvReac Mild RASH Verified 07/02/22 12:28 morphine AdvReac Unknown Verified 07/02/22 12:28 Exam Vital Signs Temp Pulse Resp BP Pulse Ox O2 Del Method 98.1 F 87 18 165/76 H 94 L Room Air 12/27/24 12:00 12/27/24 12:12/27/24 12:12/27/24 12:12/27/24 12:00 12/27/24 12:00 Constitutional Constitutional: no acute distress Routine Respiratory Exam Respiratory: Present no resp distress Routine Extremities Exam Comments: left lower extremity warm, eschar at heel and laterally there are ulcerations extending proximally containing eschar Routine Back/Spine/Pelvis Exam Comments: sacral decubitus ulcer with small area of fibrinous tissue, otherwise there is beefy red granulation tissue throughout. No fluctuance, no surrounding erythema Assessment & Plan Plan 64F with HLD, DMII, PAD s/p R AKA admitted for reid concerns, incidentally noted to have chronic sacral decubitus ulcer and left lower extremity wounds. I explained that I can debride these wounds at bedside but would not pursue definitive surgical treatment of the LLE for now as pt is still healing from her R AKA and has no signs of active infection on the left. Pt is agreeable to this plan
--- NOTE | 2024-12-27 13:27 | ESPR_ITS ---
<Statement entered by Anjel Blancas MD - 12/27/24 20:33> Patient seen and examined at bedside on medical floors. No acute overnight events reported. Denies fever, chills, N/V, SOB, or chest pain. Orthopedic surgeon deferred possible left lower extremity intervention as currently given right AKA still healing therefore will not pursue with definite surgical treatment of left lower extremity. However debridement of sacral decubitus ulcer was planned by general surgery. Oncology was consulted given bladder mass seen on CT imaging. Urology was also consulted for cystoscopy with biopsy. Urologist plan to see the patient tomorrow after obtaining urine cytology. Per ID, given positive 2 out of 2 GPC we will obtain another set of cultures and doxycycline was switched to vancomycin. Will follow-up with echocardiogram. Patient's sister was updated regarding the plan. All labs and orders were reviewed. I saw and examined the patient, and I agree with current management stated by Dr Britta MD,PGY1. Plan of care was discussed with the attending physician and resident physician. Disclaimer: Despite multiple revisions, due to the dictation software being used, the document bellow may not be free of grammatical errors including phonetic/typographic errors. However, this does not deter from our commitment to providing health care in the patient's best interest in mind. Dr. 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 Presented on 12/25 for recurrent leakage around Reid catheter, dysuria, and foul-smelling urine x24 hours and admitted for work-up and management of chronic Reid catheter associated UTI and coccygeal osteomyelitis (stage IV sacral ulcer). 12/26: Seen and examined at bedside in ED and on medical floor. No acute overnight events reported. Denies fever, chills, nausea, vomiting, shortness of breath, or chest pain. States that she has a compounder who sees patient after being discharged from SNF approximately 3 weeks ago. Patient is satisfied with care but heike evaluation, noted to have dry and gangrenous lesions on heel and lateral aspect of the left lower extremity: So we will look into APS consult at this time and high school social science teacher notified. Will continue ceftriaxone and doxycycline follow-up blood and urine cultures. Wound care order placed, orthopedic surgery and infectious disease consulted for osteomyelitis, and oncology consulted for bladder mass seen on imaging. Will follow-up on recommendations. 12/27: Seen and examined at bedside on medical floors. No acute overnight events reported. Denies fever, chills, N/V, SOB, or chest pain. Orthopedic surgery consulted and deferred possible LLE procedure to general surgery, who stated that given R AKA is still healing and will not pursue definitive surgical treatment of LLE. However, general surgery was able to debride sacral decubitus ulcer and packed, LLE wounds also debrided. Oncology also consulted given bladder mass seen on CT and recommended urology consult for cystoscopy with biopsy. Thus, consult placed and urologist contacted regarding case and plans to see patient tomorrow after urine cytology obtained. Per ID, given positive 2/2 blood cultures with GPC, will obtain another set of blood cultures and doxycycline DC'd and switched to vancomycin. Echo also ordered. Patient's sister, Mayra, at bedside and updated regarding current plans and management. Exam Vital Signs Temp Pulse Resp BP Pulse Ox O2 Del Method 98.1 F 87 18 165/76 H 94 L Room Air 12/27/24 12:12/27/24 12:12/27/24 12:12/27/24 12:12/27/24 12:12/27/24 12:00 Narrative Exam Priot to I&D: General: AOx3, laying comfortably on bed, able to speak full sentences HEENT: NC/AT, mucous membranes moist, bilateral sclera anicteric Cardiovascular: regular rate and rhythm, S1/S2 present, no murmurs appreciated Pulmonary: clear to auscultation bilaterally, no rales/rhonchi/wheezes Abdominal: ileostomy noted and functional, soft, non-tender, non-distended Musculoskeletal: RLE s/p AKA, LLE s/p 3rd digit amputation Skin: stage 4 sacral ulcer, necrotic lesions on heel and lateral aspect of LLE now bandaged Neuro: CN II-XII intact, no focal deficits Objective Labs 12/28/24 12:18 12/28/24 12:18 Labs: Laboratory Results - last 24 hr 12/27/24 09:55 WBC 10.1 RBC 3.01 L Hgb 8.8 L Hct 27.2 L MCV 90 MCH 29.2 MCHC 32.4 RDW Std Deviation 43.3 Plt Count 407 D Neut % (Auto) 66 Lymph % (Auto) 22 [place] % (Auto) 7 Eos % (Auto) 5 Baso % (Auto) 0 Neut # (Auto) 6.7 Lymph # (Auto) 2.3 [place] # (Auto) 0.7 Eos # (Auto) 0.5 Baso # (Auto) 0.0 Immature Gran # (Auto) 0.03 H Absolute Nucleated RBC 0.00 Immature Gran % 0 Nucleated RBC % 0 PT 12.4 H INR 1.1 APTT 38.2 H Sodium 137 Potassium 4.1 Chloride 109 H Carbon Dioxide 19.1 L Anion Gap 9 BUN 10 Creatinine 0.6 Estim Creat Clear Calc 84.1 eGFR > 60 BUN/Creatinine Ratio [address] Glu mg/dL 169 H Hemoglobin A1c 7.5 H Calculated Osmolality 275 Calcium 9.0 Phosphorus 3.9 Magnesium 1.7 Triglycerides 100 Cholesterol 134 LDL Cholesterol, Calc 82 HDL Cholesterol 32 L Cholesterol/HDL Ratio 4.2 TSH 1.20 Quality Measures Quality Measures none Advance care planning discussed with:: other Assessment & Plan Assessment Current Active Medications: Generic Name Dose Route Start Last Admin Trade Name Freq PRN Reason Stop Dose Admin Acetaminophen 1,000 mg 12/27/24 09:03 Acetaminophen 500 Mg Tablet PO 01/25/25 05:20 Q6H PRN Fever >100 Hydrocodone Bitart/Acetaminophen 1 tab 12/26/24 05:38 12/26/24 20:20 Hydrocodone/Apap 5/325 Tablet PO 12/31/24 05:37 1 tab Q4H PRN Administration pain 4-6 Dextrose 50 ml 12/26/24 05:44 Dextrose 50%-Water Inj 50 Ml Syringe IV 01/25/25 05:43 Q15MIN PRN BG <50 OR BG <70 & pt unresponsive Enoxaparin Sodium 40 mg 12/26/24 09:00 12/27/24 08:27 Enoxaparin Sod Inj 40 Mg/0.4 Ml Syringe SC 01/09/25 08:59 40 mg QDAY DEWAYNE Administration Hydromorphone HCl 0.5 mg 12/26/24 05:26 Hydromorphone Inj 2 Mg/Ml Vial IVP 12/31/24 05:25 Q3H PRN Pain 7-10 Ceftriaxone Sodium 2 gm/ 50 mls @ 100 mls/hr 12/27/24 09:00 Sodium Chloride IV 01/02/25 05:36 QDAY DEWAYNE Vancomycin/Sodium Chloride 200 mls @ 120 mls/hr 12/27/24 10:00 Vancomycin/Ns 1 Gm Ivpb IV 01/03/25 09:59 BID@1000,2200 [facility] Protocol Insulin Human Lispro 0 unit 12/26/24 07:30 12/27/24 11:49 Insulin Lispro (Admelog) 1 Unit/0.01 Ml Unit SC 01/25/25 07:29 Not Given AC [facility] Protocol Ondansetron HCl 4 mg 12/26/24 05:21 Ondansetron Inj 2 Mg/Ml Inj 2 Ml IV 01/25/25 05:20 Q6H PRN NAUSEA OR VOMITING Protocol Pantoprazole Sodium 40 mg 12/26/24 09:00 12/27/24 08:26 Pantoprazole Inj 40 Mg Vial IVP 01/25/25 08:59 40 mg QDAY [facility] Administration Pharmacy Consult 1 each 12/27/24 09:45 Vancomycin Pharmacy To Dose 1 Each Each IV 01/26/25 09:44 QDAY PRN PROTOCOL Vitamin B Complex/Vit C/Folic Acid 1 tab 12/26/24 09:00 12/27/24 08:27 Vit B12/Vit C/Fa (Nephrovite) Tablet PO 01/25/25 08:59 1 tab QDAY [facility] Administration Plan Ni Schmid is a 64-y/o female with a PMHx of endometrial carcinoma diagnosed in 2016 s/p robotic hysterectomy and bilateral salpingo-oophorectomy at [facility] in 2016, s/p brachytherapy and external beam radiation for recurrent vaginal cuff tumor in 2018 and chemotherapy until 2021 for the same, 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 Presented on 12/25 for recurrent leakage around Reid catheter, dysuria, and foul-smelling urine x24 hours and admitted for work-up and management of chronic Reid catheter associated UTI and coccygeal osteomyelitis (stage IV sacral ulcer). #Catheter associated UTI #Chronic reid #Microscopic hematuria Presents for recurrent leakage around Reid catheter, dysuria, and foul-smelling urine x24 hours. Mild leukocytosis WBC 12, UA: 2+ protein, 2+ blood, (+) nitrite and LE, 30 RBC, 4+ bacteria, > 3000 WBC. Chronic reid catheter since 2022 after fibrosis from brachytherapy and radiation to vaginal stump tumor. - Ceftriaxone 2 g IV daily (12/25/2024-) - As needed acetaminophen 1 g every 6 hours for fever > 100 and pain 1?3 - Follow-up urine culture and blood culture results #Coccygeal osteomyeltiis #Stage IV sacral ulcer #Severe PAD, s/p RLE BKA + LLE 3rd digit amputation #GPC bacteremia Severe PAD diagnosed after iliofemoral runoff testing in 2022. Endorses severe pain in lower back due to worsening coccygeal pressure ulcer, which she started to develop over last few months. Also has LLE pain due to calf ulcers and follows up with wound care every Friday. Recently DC?d from [facility] in [place] a few weeks ago after completing rehab and currently lives at home with no home wound care but does have a compounder. CT A/P with contrast 12/25: decubitus ulcer over sacrococcygeal region with suspicion for osteomyelitis - Blood cultures 12/25: 2/2 bottles positive for GPC - Second set of blood cultures 12/27 - Follow-up echo - Ceftriaxone 2 g IV daily (12/25-) - Vancomycin IV BID (12/27-) - Doxycycline DC'd (12/26-12/27) - Orthopedic surgery consulted, appreciate recommendations; now signed-off - General surgery consulted, appreciate recommendations - Given RLE still healing from AKA, no definitive treament for LLE - S/p debridement of sacral ulcer and LLE wounds on 12/27 - Follow-up with surgeon who performed RLE AKA as outpatient - Referral to wound care - Vitamin B complex, vitamin C, folic acid tablets PO daily #Hx of endometrial CA s/p hysterectomy + BSO in 2017, s/p radiation + chemotherapy 2017?2021 CT A/P showed 3.1 cm heterogeneously enhancing nodular mass adjacent to superior aspect of the urinary bladder, suspicious for neoplasm - Oncology consulted, appreciate recommendations - Recommended urology consult and cystoscopy with biopsy - Urology consulted, appreciate recommendations - Plans to see patient tomorrow - Follow-up urine cytology #Non-anion gap metabolic acidosis in setting of ileostomy, which is likely etiology of NAGMA. Will continue to monitor for now. #Type 2 diabetes mellitus Blood glucose 265, last A1c in 2021 9%. - SSI with Accu-Checks #Hyperlipidemia Pending med rec #Normocytic anemia, secondary to #Iron deficiency Normocytic anemia Hb 9.4 MCV 89. Iron panel: Iron 23, TIBC 601, iron saturation 3%, unsaturated iron binding 578 - Started on daily Nephro-Jerri 1 tab Hospital management: Disposition: osteomyelitis, GPC bacteremia; ID, general surgery, oncology, and urology following Fluids: none Diet: carbohydrate consistent Lines: PIV DVT prophylaxis: enoxaparin GI prophylaxis: pantoprazole CODE STATUS: limited code, no chest compressions ----- Plan discussed with attending physician Dr. Kitchen and senior resident Dr. Aman Callejas MD PGY-1 Internal Medicine Attending Provider Attestation/Addendum I have discussed and was present for the essential components of the history, physical examination, diagnosis, and treatment plan with the resident. I agree with the patient's care as documented by the resident and amended herein by me. Israel Kitchen DO. Although this document has been carefully reviewed, there may still be some phonetic and other typographical errors. These errors are purely grammatical due to imperfections in the software program and should not be construed in any way to compromise the substance of the patient's medical care during this visit.
--- NOTE | 2024-12-27 15:01 | PC.SS ---
Ni Elliott is a 64-year-old female admitted to Med-Surg for UTI. SS conducted bedside contact with the patient to complete initial assessment and to discuss discharge planning.? Patient confirmed demographic information. Patient identifies her Sister Mayra Schmid [phone] as her surrogate decision maker. Patient resides at home alone sister is her IHSS caregiver. Pt requires max assist at home and SS spoke to pt sister Mayra, who stated the care is becoming a lot for her and they are requesting for SNF for short term until it is easier for them to maintain her care at home. Pt was recently at [facility] in [place], sister stated to speak to pt in regards to where she would like to go. Pts PCP is Dr. Rosas at [facility]. SNF referral will need to be submitted. ?No further intervention required at this time, social science research assistant would be available to address any further concerns. Sister will bring in POA paperwork tomorrow. DC Plan: SNF Contact: Sister Mayra Schmid [phone] (POA) PCP: Ralph
[2024-12-27] MEDS: DiphenhydrAMINE 25 MG CAPSULE PO (15:34)
--- NOTE | 2024-12-27 15:49 | PD.SURPROC ---
Procedures - Surgery Procedure Comment Procedure Comment: Excisional debridement of sacral and left lateral lower extremity wounds Informed consent obtained Timeout performed Both wounds cleansed with iodine Sacral decubitus ulcer sharply debrided to level of muscle using scissors Sacral wound packed with saline-soaked gauze and covered with gauze and medipore tape Left lower extremity wounds sharply debrided to level of subcutaneous tissue using scissors Excellent bleeding from wounds which was controlled with direct pressure, surgicell applied Wound covered with adaptic, gauze and kerlix Pt tolerated procedure well
[2024-12-27 16:00] VITALS: BP 124/72; PULSE 85; RESP 18; TEMP 36.7; O2SAT 95
[2024-12-27] MEDS: cefTRIAXone 2 GM in SODIUM CHLORIDE 0.9% (Popper) 50 ML IV (17:00)
[2024-12-27] MEDS: VANCOMYCIN/NS 1 GM IVPB 200 ML IV (17:36)
[2024-12-27] MEDS: INSULIN LISPRO (AdmeLOG) 1 UNIT/0.01 ML UNIT SC (18:04)
[2024-12-27] MEDS: HYDROcodone/APAP 5/325 TABLET 1 TAB PO ×2 (18:12→23:01)
[2024-12-27 20:00] VITALS: BP 131/56; PULSE 96; RESP 18; TEMP 36.4; O2SAT 100
--- NOTE | 2024-12-27 21:58 | PC.NURSE ---
notified Dr. English regarding patient's fingerstick blood glucose of 244. Patient states that at home she takes about 35 units of Lantus and Humalog at night. Her current blood glucose checks and coverage are only AC. No new orders received at this time.
--- NOTE | 2024-12-27 22:51 | PC.NURSE ---
patient c/o itchiness on her back and bottom area, upon assessment, of skin, no rash observed but redness noted from scratches, patient states itchiness might be from the brief or pad. Applied topical cream but patient states wanted some benadryl. Notified Dr. English regarding this, will come up to access the patient, no new orders at this time.
[2024-12-28] VITALS: BP 139/47; PULSE 81; RESP 19; TEMP 36.3; O2SAT 99
[2024-12-28] MEDS: DiphenhydrAMINE 25 MG CAPSULE PO ×2 (00:06→20:04)
[2024-12-28 04:00] VITALS: BP 137/61; PULSE 78; RESP 18; TEMP 36.8; O2SAT 99
[2024-12-28] MEDS: INSULIN LISPRO (AdmeLOG) 1 UNIT/0.01 ML UNIT SC ×3 (07:37→17:41)
[2024-12-28 08:00] VITALS: BP 137/59; PULSE 84; RESP 20; TEMP 36.4; O2SAT 97
--- NOTE | 2024-12-28 08:20 | PC.SS ---
Addendum entered by Emi Ayers 12/28/24 14:52: SS contacted patient's sister to present SNF choices, patient's sister reported she would like to review and discuss with patient in regards to chosen facility and requested to call back SS. SS will await for patient's sister to contact SS. Original Note: SS submitted SNF referral through [employer] platform. SS will follow up with patients sister in regards to choice of SNF.
[2024-12-28] MEDS: HYDROcodone/APAP 5/325 TABLET 1 TAB PO ×3 (09:28→20:04)
[2024-12-28] MEDS: VIT B12/Vit C/FA (Nephrovite) TABLET 1 TAB PO (09:29)
[2024-12-28] MEDS: cefTRIAXone 2 GM in SODIUM CHLORIDE 0.9% (Popper) 50 ML IV (09:30)
[2024-12-28] MEDS: ENOXAPARIN SOD INJ 40 MG/0.4 ML SYRINGE SC (09:30)
[2024-12-28] MEDS: PANTOPRAZOLE INJ 40 MG VIAL IVP (09:31)
[2024-12-28] MEDS: Magnesium Sulfate 4 GM Ivpb 4 GM/50 ML BAG IV (11:19)
[2024-12-28] MEDS: VANCOMYCIN/NS 1 GM IVPB 200 ML IV (11:19)
[2024-12-28 12:00] VITALS: BP 151/65; PULSE 79; RESP 20; TEMP 36.4; O2SAT 99
[2024-12-28 12:53] LABS: Basophils % (Auto) 0 % (0-2.5); Eosinophils # (Auto) 0.4 Thou/mm3 (0.0-0.5); Eosinophils % (Auto) 4 % (0-10); Hematocrit 24.6 % (36.0-46.0); Immature Granulocytes % (Auto) 0 % (0-0); Immature Granulocytes Auto 0.03 Thou/mm3 (0.00-0.00); Lymphocytes # (Auto) 2.6 Thou/mm3 (1.0-4.8); Lymphocytes % (Auto) 24 % (10-50); Mean Corpuscular HGB Conc 33.3 g/dl (31.0-37.0); Mean Corpuscular Hemoglobin 29.5 pg (25.0-35.0); Mean Corpuscular Volume 89 fL (80-100); Monocytes # (Auto) 0.7 Thou/mm3 (0.0-0.8); Monocytes % (Auto) 7 % (0-12); Neutrophils # (Auto) 7.1 Thou/mm3 (1.8-7.7); Neutrophils % (Auto) 65 % (37-80); Nucleated Red Blood Cell % 0 /100 WBC (0); Platelet Count 399 Thou/mm3 (140-440); RDW Standard Deviation 41.9 fL (36.4-46.3); Red Blood Count 2.78 Miln/mm3 (4.00-5.20); White Blood Count 10.8 Thou/mm3 (3.6-11.0)
[2024-12-28 12:55] LABS: Hemoglobin 8.2 g/dL (12.0-16.0)
[2024-12-28 13:03] LABS: Glucose Estimated Average 171 mg/dL (80-131); Hemoglobin A1C 7.6 % Hgb (4.8-6.0)
[2024-12-28 13:08] LABS: Anion Gap 7 (7-16); BUN/Creatinine Ratio 16 Ratio (12-20); Blood Urea Nitrogen 11 mg/dL (9-23); Calcium 8.6 mg/dL (8.3-10.6); Carbon Dioxide 20.9 mMol/L (20.0-31.0); Chloride 109 mMol/L (98-107); Creatinine (Component) 0.7 mg/dL (0.6-1.3); Estimated Creatinine Clearance 69.2 mL/min (>60); Glucose 155 mg/dL (74-106); Magnesium 1.8 mg/dL (1.6-2.6); Osmolality,Calculated 276 (275-295); Phosphorous 3.3 mg/dL (2.4-5.1); Sodium 137 mMol/L (136-145); eGFR > 60 See Note
[2024-12-28 13:50] LABS: Hepatitis C Antibody Non Reactive (Non React)
--- NOTE | 2024-12-28 14:02 | ESPR_ITS ---
<Statement entered by Anjel Blancas MD - 12/28/24 16:23> Patient was seen and examined at the bedside. Patient reported that she has mild rash on her back and continues to have pain. A1c was 7.5%. Magnesium was repleted. New repeat cultures are still growing GPC therefore another set of Blood cultures were ordered. Will continue with Rocephin and vancomycin for GPC. Echocardiogram showed no vegetations. Urine cultures are growing GNR adequately covered with Rocephin. Surgeon is following as patient had I&D yesterday. Urology recommended that patient could not have cystoscopy as a risk of infection and septic shock is high therefore he deferred to do cystoscopy at this point. ID is following the case. Ortho have signed off the case. Will continue with blood cultures. Wound care and pain management as ordered. Benadryl for skin rash. All labs and orders were reviewed. I saw and examined the patient, and I agree with current management stated by Dr Britta MD,PGY1. Plan of care was discussed with the attending physician and resident physician. Disclaimer: Despite multiple revisions, due to the dictation software being used, the document bellow may not be free of grammatical errors including phonetic/typographic errors. However, this does not deter from our commitment to providing health care in the patient's best interest in mind. Dr. 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 Presented on 12/25 for recurrent leakage around Reid catheter, dysuria, and foul-smelling urine x24 hours and admitted for work-up and management of chronic Reid catheter associated UTI and coccygeal osteomyelitis (stage IV sacral ulcer). 12/26: Seen and examined at bedside in ED and on medical floor. No acute overnight events reported. Denies fever, chills, nausea, vomiting, shortness of breath, or chest pain. 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 Patient is satisfied with care but heike evaluation, noted to have dry and gangrenous lesions on heel and lateral aspect of the left lower extremity: So we will look into APS consult at this time and long term care social worker notified. Will continue ceftriaxone and doxycycline follow-up blood and urine cultures. Wound care order placed, orthopedic surgery and infectious disease consulted for osteomyelitis, and oncology consulted for bladder mass seen on imaging. Will follow-up on recommendations. 12/27: Seen and examined at bedside on medical floors. No acute overnight events reported. Denies fever, chills, N/V, SOB, or chest pain. Orthopedic surgery consulted and deferred possible LLE procedure to general surgery, who stated that given R AKA is still healing and will not pursue definitive surgical treatment of LLE. However, general surgery was able to debride sacral decubitus ulcer and packed, LLE wounds also debrided. Oncology also consulted given bladder mass seen on CT and recommended urology consult for cystoscopy with biopsy. Thus, consult placed and urologist contacted regarding case and plans to see patient tomorrow after urine cytology obtained. Per ID, given positive 2/2 blood cultures with GPC, will obtain another set of blood cultures and doxycycline DC'd and switched to vancomycin. Echo also ordered. Patient's sister, Mayra, at bedside and updated regarding current plans and management. 12/28: Seen and examined at bedside on medical floors. No acute overnight events reported. No fevers overnight and WBC remained stable. Second round of blood cultures noted to be positive in 1 of 2 bottles for GPC. Will send second set of blood cultures tomorrow. Echo obtained and showed no signs of vegetations. Urology evaluated patient and deemed that given GPC bacteremia that is not safe to undergo cystoscopy. MRSA nares positive and urine culture growing GNR, ID to follow. Exam Vital Signs Temp Pulse Resp BP Pulse Ox O2 Del Method 97.6 F 79 20 151/65 H 99 Room Air 12/28/24 12:12/28/24 12:12/28/24 12:12/28/24 12:12/28/24 12:00 12/28/24 12:00 Narrative Exam General: AOx3, laying comfortably on bed, able to speak full sentences HEENT: NC/AT, mucous membranes moist, bilateral sclera anicteric Cardiovascular: regular rate and rhythm, S1/S2 present, no murmurs appreciated Pulmonary: clear to auscultation bilaterally, no rales/rhonchi/wheezes Abdominal: ileostomy noted and functional, soft, non-tender, non-distended Musculoskeletal: RLE s/p AKA, LLE s/p 3rd digit amputation Skin: stage 4 sacral ulcer, necrotic lesions on heel and lateral aspect of LLE now bandaged Neuro: CN II-XII intact, no focal deficits Objective Labs 12/28/24 12:18 12/28/24 12:18 Labs: Laboratory Results - last 24 hr 12/28/24 12:18 WBC 10.8 RBC 2.78 L Hgb 8.2 L Hct 24.6 L MCV 89 MCH 29.5 MCHC 33.3 RDW Std Deviation 41.9 Plt Count 399 Neut % (Auto) 65 Lymph % (Auto) 24 [place] % (Auto) 7 Eos % (Auto) 4 Baso % (Auto) 0 Neut # (Auto) 7.1 Lymph # (Auto) 2.6 [place] # (Auto) 0.7 Eos # (Auto) 0.4 Baso # (Auto) 0.0 Immature Gran # (Auto) 0.03 H Absolute Nucleated RBC 0.00 Immature Gran % 0 Nucleated RBC % 0 Sodium 137 Potassium 4.0 Chloride 109 H Carbon Dioxide 20.9 Anion Gap 7 BUN 11 Creatinine 0.7 Estim Creat Clear Calc 69.2 eGFR > 60 BUN/Creatinine Ratio [address] Glu mg/dL 171 H Hemoglobin A1c 7.6 H Calculated Osmolality 276 Calcium 8.6 Phosphorus 3.3 Magnesium 1.8 Hepatitis C Antibody Non Reactive Quality Measures Quality Measures none Advance care planning discussed with:: other Assessment & Plan Assessment Current Active Medications: Generic Name Dose Route Start Last Admin Trade Name Freq PRN Reason Stop Dose Admin Acetaminophen 1,000 mg 12/27/24 09:03 Acetaminophen 500 Mg Tablet PO 01/25/25 05:20 Q6H PRN Fever >100 Hydrocodone Bitart/Acetaminophen 1 tab 12/26/24 05:38 12/28/24 09:28 Hydrocodone/Apap 5/325 Tablet PO 12/31/24 05:37 1 tab Q4H PRN Administration pain 4-6 Dextrose 50 ml 12/26/24 05:44 Dextrose 50%-Water Inj 50 Ml Syringe IV 01/25/25 05:43 Q15MIN PRN BG <50 OR BG <70 & pt unresponsive Diphenhydramine HCl 25 mg 12/27/24 23:40 12/28/24 00:06 Diphenhydramine 25 Mg Capsule PO 01/26/25 23:39 25 mg HS DEWAYNE Administration Enoxaparin Sodium 40 mg 12/26/24 09:00 12/28/24 09:30 Enoxaparin Sod Inj 40 Mg/0.4 Ml Syringe SC 01/09/25 08:59 40 mg QDAY DEWAYNE Administration Hydromorphone HCl 0.5 mg 12/26/24 05:26 Hydromorphone Inj 2 Mg/Ml Vial IVP 12/31/24 05:25 Q3H PRN Pain 7-10 Ceftriaxone Sodium 2 gm/ 50 mls @ 100 mls/hr 12/27/24 09:00 12/28/24 09:30 Sodium Chloride IV 01/02/25 05:36 100 mls/hr QDAY DEWAYNE Administration Vancomycin/Sodium Chloride 200 mls @ 120 mls/hr 12/27/24 17:30 12/28/24 11:19 Vancomycin/Ns 1 Gm Ivpb IV 01/03/25 17:29 120 mls/hr BID@1000,2200 DEWAYNE Administration Protocol Insulin Human Lispro 0 unit 12/26/24 07:30 12/28/24 12:07 Insulin Lispro (Admelog) 1 Unit/0.01 Ml Unit SC 01/25/25 07:29 2 unit AC DEWAYNE Administration Protocol Ondansetron HCl 4 mg 12/26/24 05:21 Ondansetron Inj 2 Mg/Ml Inj 2 Ml IV 01/25/25 05:20 Q6H PRN NAUSEA OR VOMITING Protocol Pantoprazole Sodium 40 mg 12/26/24 09:00 12/28/24 09:31 Pantoprazole Inj 40 Mg Vial IVP 01/25/25 08:59 40 mg QDAY DEWAYNE Administration Pharmacy Consult 1 each 12/27/24 09:45 Vancomycin Pharmacy To Dose 1 Each Each IV 01/26/25 09:44 QDAY PRN PROTOCOL Vitamin B Complex/Vit C/Folic Acid 1 tab 12/26/24 09:00 12/28/24 09:29 Vit B12/Vit C/Fa (Nephrovite) Tablet PO 01/25/25 08:59 1 tab QDAY DEWAYNE Administration Plan Ni Schmid is a 64-y/o female with a PMHx of endometrial carcinoma diagnosed in 2015 s/p robotic hysterectomy and bilateral salpingo-oophorectomy at [facility] in 2016, s/p brachytherapy and external beam radiation for recurrent vaginal cuff tumor in 2018 and chemotherapy until 2021 for the same, 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 Presented on 12/25 for recurrent leakage around Reid catheter, dysuria, and foul-smelling urine x24 hours and admitted for work-up and management of chronic Reid catheter associated UTI and coccygeal osteomyelitis (stage IV sacral ulcer). #Coccygeal osteomyeltiis #Stage IV sacral ulcer #Severe PAD, s/p RLE BKA + LLE 3rd digit amputation #GPC bacteremia Severe PAD diagnosed after iliofemoral runoff testing in 2022. Endorses severe pain in lower back due to worsening coccygeal pressure ulcer, which she started to develop over last few months. Also has LLE pain due to calf ulcers and follows up with wound care every Friday. Recently DC?d from [facility] in [place] a few weeks ago after completing rehab and currently lives at home with no home wound care but does have a death surveys coder. CT A/P with contrast 12/25: decubitus ulcer over sacrococcygeal region with suspicion for osteomyelitis Echo on 12/27 without signs of vegetations. EF 55 to 60% with normal LV size and function, stage I diastolic dysfunction. ? Blood cultures 12/25: 2/2 bottles positive for GPC, ID to follow ? Blood cultures 12/27: 1/2 bottles positive for GPC, ID to follow ? Blood culture to be drawn tomorrow, 12/29 ? Ceftriaxone 2 g IV daily (12/25-) ? Vancomycin IV BID (12/27-) ? Doxycycline DC'd (12/26-12/27) ? Orthopedic surgery consulted, appreciate recommendations; now signed-off ? General surgery consulted, appreciate recommendations ? Given RLE still healing from AKA, no definitive treament for LLE ? S/p debridement of sacral ulcer and LLE wounds on 12/27 ? Follow-up with surgeon who performed RLE AKA as outpatient ? Referral to wound care ? Vitamin B complex, vitamin C, folic acid tablets PO daily #Catheter associated UTI #Chronic reid #Microscopic hematuria Presents for recurrent leakage around Reid catheter, dysuria, and foul-smelling urine x24 hours. Mild leukocytosis WBC 12, UA: 2+ protein, 2+ blood, (+) nitrite and LE, 30 RBC, 4+ bacteria, > 3000 WBC. Chronic reid catheter since 2022 after fibrosis from brachytherapy and radiation to vaginal stump tumor. ? Ceftriaxone 2 g IV daily (12/25/2024-) ? Urine culture 12/27: GNR, ID to follow #Hx of endometrial CA s/p hysterectomy + BSO in 2016, s/p radiation + chemotherapy 2016?2021 CT A/P showed 3.1 cm heterogeneously enhancing nodular mass adjacent to superior aspect of the urinary bladder, suspicious for neoplasm ? Oncology consulted, appreciate recommendations ? Recommended urology consult and cystoscopy with biopsy ? Urology consulted, appreciate recommendations ? States that currently not safe to undergo cystoscopy ? Follow-up urine cytology #Non-anion gap metabolic acidosis, in setting of ileostomy Will continue to monitor for now. #Type 2 diabetes mellitus A1c 7.6%. ? SSI with Accu-Checks #Hyperlipidemia Pending med rec #Normocytic anemia, secondary to #Iron deficiency Normocytic anemia Hb 9.4 MCV 89. Iron panel: Iron 23, TIBC 601, iron saturation 3%, unsaturated iron binding 578 ? Started on daily Nephro-Jerri 1 tab Hospital management: Disposition: osteomyelitis, GPC bacteremia; ID, general surgery, oncology, and urology following Fluids: none Diet: carbohydrate consistent Lines: PIV DVT prophylaxis: enoxaparin GI prophylaxis: pantoprazole CODE STATUS: limited code, no chest compressions ----- Plan discussed with attending physician Dr. Kitchen and senior resident Dr. Magalis Callejas MD PGY-1 Internal Medicine Attending Provider Attestation/Addendum I have discussed and was present for the essential components of the history, physical examination, diagnosis, and treatment plan with the resident. I agree with the patient's care as documented by the resident and amended herein by me. Israel Kitchen DO. Patient seen and evaluated this AM. Vital signs stable, patient afebrile overnight. Significant labs include a stable hemoglobin of 8.8, uptrending bicarb at 19. Blood cultures demonstrating gram-positive cocci in both sets, urine culture demonstrating GNR bacteria. MRSA nares positive. TTE negative for any vegetations, normal LV size and function, EF 55% with grade 1 diastolic dysfunction noted. Per infectious disease we will keep the patient on ceftriaxone and vancomycin at this time, general surgery did perform debridements on her left lower extremity and sacral ulcer yesterday, wound care on board and patient is already on broad-spectrum antibiotics. Urology consulted, will not perform any intervention at this time as there would be fear for making the patient septic per urology. Will continue to monitor blood cultures, will repeat again tomorrow appreciate all specialist recommendations. Although this document has been carefully reviewed, there may still be some phonetic and other typographical errors. These errors are purely grammatical due to imperfections in the software program and should not be construed in any way to compromise the substance of the patient's medical care during this visit.
[2024-12-28 16:00] VITALS: BP 145/66; PULSE 80; RESP 18; TEMP 36.7; O2SAT 99
[2024-12-28 20:00] VITALS: BP 141/63; PULSE 85; RESP 17; TEMP 36.4; O2SAT 98
--- NOTE | 2024-12-28 20:54 | ESCONSULT_ITS ---
RE: MONTY MOORE : 1960 DATE OF CONSULTATION: 12/28/2024 CHIEF COMPLAINT: 1. Neurogenic bladder, status post placement of Michel catheter. 2. Bladder spasms. COMORBID CONDITIONS: 1. Recurrent UTI. 2. Coccygeal osteomyelitis. 3. Stage IV sacral ulcers. 4. Severe PAD. 5. Status post right third digital amputation. 6. Diabetes mellitus. 7. Normocytic anemia. 8. Hyperglycemia. HISTORY OF PRESENT ILLNESS: This is a 64-year-old female. She is admitted in the hospital. This patient has past medical history of endometrial carcinoma, diagnosed in 2016, status post robotic hysterectomy and bilateral salpingo-oophorectomy at [facility] in 2016. Status post brachytherapy and external beam radiation for recurrent vaginal cuff tumor in 2018. Subsequently, the patient underwent chemotherapy until 2021. The patient is status post colostomy due to rectovaginal fistula in 2022. The patient also has a hyperlipidemia. The patient is insulin dependent. The patient was seen in the emergency room for recurrent leakage around Michel catheter and some burning over the 24 hours. She had no fever, chills, or gross hematuria. In the emergency room, vitals were within normal limits. WBC is 12, hemoglobin is 9.4, MCV 89, ESR 87, hyperglycemia 265. Urinalysis was remarkable for proteinuria, hematuria, and UTI. ALLERGIES: THE PATIENT IS ALLERGIC TO MORPHINE AND LATEX. 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 Marital status, she is single. No history of smoking. No history of alcohol use. No history of drug use. The patient lives at rehab. REVIEW OF SYSTEMS: General: Denies fever, chills. HEENT: Denies headache or visual or hearing changes. Neurologic: Denies unusual weakness or difficulty in speaking. Cardiology: Denies chest pain. Pulmonary: Denies shortness of breath. GI: Denies abdominal pain. Urology: Burning and leakage around the catheter. PERFORMANCE TEST CONSULTANT: Denied hot flashes. Psychiatric: Cooperative, pleasant, and mood . PHYSICAL EXAMINATION: GENERAL: The patient is lying comfortably in the bed. VITAL SIGNS: Stable. Her BUN is 15, creatinine is 1.7. RECOMMENDATION: Unfortunately, the patient is catheter dependent. It is a necessary evil because her decubitus ulcer will get worse. If catheter is removed, my recommendation at this time is 1. Treat urinary tract infection only when the patient is symptomatic. 2. Change catheter once a month. 3. Oxybutynin ER 10 mg p.o. daily for bladder spasm. All above issues were discussed with the patient in detail. I answered her questions. DT: 14:10:38 TT: 15:48:00 Ref: [id number] - TID: [id number] MTDD
[2024-12-28 22:45] LABS: Vancomycin,Trough 23.7 mcg/mL (5.0-10.0)
[2024-12-29] VITALS (7 sets, daily range): BP systolic 140–161; BP diastolic 55–88; PULSE 79–85; RESP 14–20; TEMP 36.2–37.1; O2SAT 98–99
[2024-12-29 06:01] LABS: Basophils % (Auto) 0 % (0-2.5); Eosinophils # (Auto) 0.4 Thou/mm3 (0.0-0.5); Eosinophils % (Auto) 5 % (0-10); Immature Granulocytes % (Auto) 0 % (0-0); Immature Granulocytes Auto 0.02 Thou/mm3 (0.00-0.00); Lymphocytes # (Auto) 2.4 Thou/mm3 (1.0-4.8); Lymphocytes % (Auto) 28 % (10-50); Mean Corpuscular HGB Conc 32.4 g/dl (31.0-37.0); Mean Corpuscular Hemoglobin 29.7 pg (25.0-35.0); Mean Corpuscular Volume 92 fL (80-100); Monocytes # (Auto) 0.8 Thou/mm3 (0.0-0.8); Monocytes % (Auto) 9 % (0-12); Neutrophils % (Auto) 57 % (37-80); Nucleated Red Blood Cell % 0 /100 WBC (0); Platelet Count 404 Thou/mm3 (140-440); RDW Standard Deviation 42.9 fL (36.4-46.3); Red Blood Count 2.73 Miln/mm3 (4.00-5.20); White Blood Count 8.6 Thou/mm3 (3.6-11.0)
[2024-12-29 06:13] LABS: Hemoglobin 8.1 g/dL (12.0-16.0)
[2024-12-29 06:25] LABS: Anion Gap 10 (7-16); BUN/Creatinine Ratio 13 Ratio (12-20); Blood Urea Nitrogen 9 mg/dL (9-23); Calcium 8.8 mg/dL (8.3-10.6); Carbon Dioxide 20.4 mMol/L (20.0-31.0); Chloride 106 mMol/L (98-107); Creatinine (Component) 0.7 mg/dL (0.6-1.3); Estimated Creatinine Clearance 69.2 mL/min (>60); Glucose 291 mg/dL (74-106); Osmolality,Calculated 281 (275-295); Phosphorous 3.2 mg/dL (2.4-5.1); Potassium 3.9 mMol/L (3.4-5.1); Sodium 136 mMol/L (136-145); eGFR > 60 See Note
[2024-12-29] MEDS: INSULIN LISPRO (AdmeLOG) 1 UNIT/0.01 ML UNIT SC ×3 (07:55→17:19)
[2024-12-29] MEDS: PANTOPRAZOLE INJ 40 MG VIAL IVP (09:31)
[2024-12-29] MEDS: oxyCODONE/APAP 5/325 TABLET 1 TAB PO ×2 (09:31→21:41)
[2024-12-29] MEDS: cefTRIAXone 2 GM in SODIUM CHLORIDE 0.9% (Popper) 50 ML IV (09:31)
[2024-12-29] MEDS: ENOXAPARIN SOD INJ 40 MG/0.4 ML SYRINGE SC (09:31)
[2024-12-29] MEDS: VIT B12/Vit C/FA (Nephrovite) TABLET 1 TAB PO (09:32)
[2024-12-29] MEDS: VANCOMYCIN/NS 750 MG IVPB 750 MG/150 ML BAG 120 MG IV ×2 (10:42→21:33)
--- NOTE | 2024-12-29 12:01 | ESPR_ITS ---
<Statement entered by Anjel Blancas MD - 12/29/24 15:13> Patient was seen and examined at the bedside. Patient had no acute overnight events reported. Patient's urine culture grew ESBL UTI and first 2 sets of blood cultures grew Staph hominis, second set 1 out of 2 grew Staph hominis. Third set of blood cultures are currently pending will continue with vancomycin for GPC bacteremia. Ceftriaxone was switched to meropenem. ID recommendations are pending. Will continue to monitor and wait on new set of blood cultures. All labs and orders were reviewed. I saw and examined the patient, and I agree with current management stated by Dr Britta MD,PGY1. Plan of care was discussed with the attending physician and resident physician. Disclaimer: Despite multiple revisions, due to the dictation software being used, the document bellow may not be free of grammatical errors including phonetic/typographic errors. However, this does not deter from our commitment to providing health care in the patient's best interest in mind. Dr. 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 Presented on 12/25 for recurrent leakage around Reid catheter, dysuria, and foul-smelling urine x24 hours and admitted for work-up and management of chronic Reid catheter associated UTI and coccygeal osteomyelitis (stage IV sacral ulcer). 12/26: Seen and examined at bedside in ED and on medical floor. No acute overnight events reported. Denies fever, chills, nausea, vomiting, shortness of breath, or chest pain. States that she has a academic intern who sees patient after being discharged from SNF approximately 3 weeks ago. Patient is satisfied with care but heike evaluation, noted to have dry and gangrenous lesions on heel and lateral aspect of the left lower extremity: So we will look into APS consult at this time and psychiatric social worker notified. Will continue ceftriaxone and doxycycline follow-up blood and urine cultures. Wound care order placed, orthopedic surgery and infectious disease consulted for osteomyelitis, and oncology consulted for bladder mass seen on imaging. Will follow-up on recommendations. 12/27: Seen and examined at bedside on medical floors. No acute overnight events reported. Denies fever, chills, N/V, SOB, or chest pain. Orthopedic surgery consulted and deferred possible LLE procedure to general surgery, who stated that given R AKA is still healing and will not pursue definitive surgical treatment of LLE. However, general surgery was able to debride sacral decubitus ulcer and packed, LLE wounds also debrided. Oncology also consulted given bladder mass seen on CT and recommended urology consult for cystoscopy with biopsy. Thus, consult placed and urologist contacted regarding case and plans to see patient tomorrow after urine cytology obtained. Per ID, given positive 2/2 blood cultures with GPC, will obtain another set of blood cultures and doxycycline DC'd and switched to vancomycin. Echo also ordered. Patient's sister, Mayra, at bedside and updated regarding current plans and management. 12/28: Seen and examined at bedside on medical floors. No acute overnight events reported. No fevers overnight and WBC remained stable. Second round of blood cultures noted to be positive in 1 of 2 bottles for GPC. Will send second set of blood cultures tomorrow. Echo obtained and showed no signs of vegetations. Urology evaluated patient and deemed that given GPC bacteremia that is not safe to undergo cystoscopy. MRSA nares positive and urine culture growing GNR, ID to follow. 12/29: Seen and examined at bedside on medical floors. No acute overnight events reported. No fevers overnight and WBC continues to remain stable. Patient endorses abdominal pain but is chronic and states that she has experienced this at home. Will restart patient's home methocarbamol. Exam Vital Signs Temp Pulse Resp BP Pulse Ox O2 Del Method 98.7 F 83 16 161/73 H 98 Room Air 12/29/24 11:00 12/29/24 11:00 12/29/24 11:12/29/24 11:00 12/29/24 11:12/29/24 11:00 Narrative Exam General: AOx3, laying comfortably on bed, able to speak full sentences HEENT: NC/AT, mucous membranes moist, bilateral sclera anicteric Cardiovascular: regular rate and rhythm, S1/S2 present, no murmurs appreciated Pulmonary: clear to auscultation bilaterally, no rales/rhonchi/wheezes Abdominal: ileostomy noted and functional with stool, soft, non-tender, non- distended Musculoskeletal: RLE s/p AKA, LLE s/p 3rd digit amputation Skin: stage 4 sacral ulcer, LLE now bandaged s/p I&D Neuro: CN II-XII intact, no focal deficits Objective Labs 12/29/24 04:58 12/29/24 04:58 Labs: Laboratory Results - last 24 hr 12/28/24 12/28/24 12/29/24 12:18 21:11 04:58 WBC 10.8 8.6 RBC 2.78 L 2.73 L Hgb 8.2 L 8.1 L Hct 24.6 L 25.0 L MCV 89 92 MCH 29.5 29.7 MCHC 33.3 32.4 RDW Std Deviation 41.9 42.9 Plt Count 399 404 Neut % (Auto) 65 57 Lymph % (Auto) 24 28 Creek % (Auto) 7 9 Eos % (Auto) 4 5 Baso % (Auto) 0 0 Neut # (Auto) 7.1 5.0 Lymph # (Auto) 2.6 2.4 Creek # (Auto) 0.7 0.8 Eos # (Auto) 0.4 0.4 Baso # (Auto) 0.0 0.0 Immature Gran # (Auto) 0.03 H 0.02 H Absolute Nucleated RBC 0.00 0.00 Immature Gran % 0 0 Nucleated RBC % 0 0 Sodium 137 136 Potassium 4.0 3.9 Chloride 109 H 106 Carbon Dioxide 20.9 20.4 Anion Gap 7 10 BUN 11 9 Creatinine 0.7 0.7 Estim Creat Clear Calc 69.2 69.2 eGFR > 60 > 60 BUN/Creatinine Ratio 16 13 Glucose [address] Glu mg/dL 171 H Hemoglobin A1c 7.6 H Calculated Osmolality 276 281 Calcium 8.6 8.8 Phosphorus 3.3 3.2 Magnesium 1.8 2.0 Vancomycin Trough 23.7 H* Hepatitis C Antibody Non Reactive Quality Measures Quality Measures none Advance care planning discussed with:: patient Assessment & Plan Assessment Current Active Medications: Generic Name Dose Route Start Last Admin Trade Name Freq PRN Reason Stop Dose Admin Acetaminophen 1,000 mg 12/27/24 09:03 Acetaminophen 500 Mg Tablet PO 01/25/25 05:20 Q6H PRN Fever >100 Calamine 0 ml 12/28/24 14:44 Calamine Lotion 120 Ml Btl TOP 01/27/25 14:43 UD PRN ITCHING Dextrose 50 ml 12/26/24 05:44 Dextrose 50%-Water Inj 50 Ml Syringe IV 01/25/25 05:43 Q15MIN PRN BG <50 OR BG <70 & pt unresponsive Diphenhydramine HCl 25 mg 12/27/24 23:40 12/28/24 20:04 Diphenhydramine 25 Mg Capsule PO 01/26/25 23:39 25 mg HS DEWAYNE Administration Enoxaparin Sodium 40 mg 12/26/24 09:00 12/29/24 09:31 Enoxaparin Sod Inj 40 Mg/0.4 Ml Syringe SC 01/09/25 08:59 40 mg QDAY DEWAYNE Administration Hydromorphone HCl 0.5 mg 12/26/24 05:26 Hydromorphone Inj 2 Mg/Ml Vial IVP 12/31/24 05:25 Q3H PRN Pain 7-10 Protocol Vancomycin/Sodium Chloride 750 mg in 150 mls @ 120 mls/hr 12/29/24 10:00 12/29/24 10:42 Vancomycin/Ns 750 Mg Ivpb IV 01/05/25 09:59 120 mls/hr BID@1000,2200 DEWAYNE Administration Protocol Meropenem 1,000 mg/ Sodium 50 mls @ 100 mls/hr 12/29/24 14:00 Chloride IV 01/05/25 13:59 Q8HR DEWAYNE Insulin Human Lispro 0 unit 12/29/24 11:25 Insulin Lispro (Admelog) 1 Unit/0.01 Ml Unit SC 01/25/25 07:29 AC DEWAYNE Protocol Ondansetron HCl 4 mg 12/26/24 05:21 Ondansetron Inj 2 Mg/Ml Inj 2 Ml IV 01/25/25 05:20 Q6H PRN NAUSEA OR VOMITING Protocol Oxycodone/Acetaminophen 1 tab 12/29/24 08:33 12/29/24 09:31 Oxycodone/Apap 5/325 Tablet PO 01/03/25 08:32 1 tab Q6HR PRN Administration PAIN SCALE 4-10(Mod-Sev Protocol Pantoprazole Sodium 40 mg 12/26/24 09:00 12/29/24 09:31 Pantoprazole Inj 40 Mg Vial IVP 01/25/25 08:59 40 mg QDAY DEWAYNE Administration Pharmacy Consult 1 each 12/27/24 09:45 Vancomycin Pharmacy To Dose 1 Each Each IV 01/26/25 09:44 QDAY PRN PROTOCOL Vitamin B Complex/Vit C/Folic Acid 1 tab 12/26/24 09:00 12/29/24 09:32 Vit B12/Vit C/Fa (Nephrovite) Tablet PO 01/25/25 08:59 1 tab QDAY DEWAYNE Administration Plan Ni Schmid is a 64-y/o female with a PMHx of endometrial carcinoma diagnosed in 2015 s/p robotic hysterectomy and bilateral salpingo-oophorectomy at [facility] in 2016, s/p brachytherapy and external beam radiation for recurrent vaginal cuff tumor in 2018 and chemotherapy until 2021 for the same, 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 Presented on 12/25 for recurrent leakage around Reid catheter, dysuria, and foul-smelling urine x24 hours and admitted for work-up and management of chronic Reid catheter associated UTI and coccygeal osteomyelitis (stage IV sacral ulcer). #Coccygeal osteomyeltiis #Stage IV sacral ulcer #Severe PAD, s/p RLE BKA + LLE 3rd digit amputation #GPC bacteremia Echo on 12/27 without signs of vegetations. EF 55 to 60% with normal LV size and function, stage I diastolic dysfunction. Blood cultures 12/25: 2/2 bottles positive for GPC, ID to follow Blood cultures 12/27: 1/2 bottles positive for GPC, ID to follow Blood cultures 12/29: Pending ? Vancomycin IV BID (12/27-) ? Orthopedic surgery consulted, appreciate recommendations; now signed-off ? General surgery consulted, appreciate recommendations ? Given RLE still healing from AKA, no definitive treament for LLE ? S/p debridement of sacral ulcer and LLE wounds on 12/27 ? Follow-up with surgeon who performed RLE AKA as outpatient ? Referral to wound care ? Vitamin B complex, vitamin C, folic acid tablets PO daily #Catheter associated UTI #Chronic reid #Microscopic hematuria Ceftriaxone 2 g IV daily (12/25-12/29) Urine culture 12/27: ESBL E. coli ? Nitrofurantoin 100 mg p.o. twice daily (12/29-) #Hx of endometrial CA s/p hysterectomy + BSO in 2016, s/p radiation + chemotherapy 2016?2021 CT A/P showed 3.1 cm heterogeneously enhancing nodular mass adjacent to superior aspect of the urinary bladder, suspicious for neoplasm ? Oncology consulted, appreciate recommendations ? Recommended urology consult and cystoscopy with biopsy ? Urology consulted, appreciate recommendations ? States that currently not safe to undergo cystoscopy ? Follow-up urine cytology #Non-anion gap metabolic acidosis in setting of ileostomy ? Will continue to monitor for now #Type 2 diabetes mellitus A1c 7.6%. ? SSI with Accu-Checks ? Increased SSI to step 3 #Hyperlipidemia ? Home Atorvastatin 40 mg p.o. daily #Normocytic anemia, secondary to #Iron deficiency Normocytic anemia Hb 9.4 MCV 89. Iron panel: Iron 23, TIBC 601, iron saturation 3%, unsaturated iron binding 578 ? Started on daily Nephro-Jerri 1 tab #Abdominal pain ? Home methocarbamol 500 mg p.o. twice daily Antibiotics: Ceftriaxone 12/25-12/29 Vancomycin 12/27- Doxycycline 12/26-12/27 Hospital management: Disposition: osteomyelitis, GPC bacteremia; ID, general surgery, oncology, and urology following Fluids: none Diet: carbohydrate consistent Lines: PIV DVT prophylaxis: enoxaparin GI prophylaxis: pantoprazole CODE STATUS: limited code, no chest compressions ----- Plan discussed with attending physician Dr. Kitchen and senior resident physician Dr. Magalis Callejas MD PGY-1 Internal Medicine Attending Provider Attestation/Addendum I have discussed and was present for the essential components of the history, physical examination, diagnosis, and treatment plan with the resident. I agree with the patient's care as documented by the resident and amended herein by me. Israel Kitchen DO. Patient seen and evaluated this AM. Vital signs stable, patient afebrile overnight, I/O2 1000/2500 mL. Significant labs include a stable hemoglobin of 8, BMP largely unremarkable. Echo significant for an EF of 55%, grade 1 diastolic dysfunction noted. bottle of both sets, repeat blood cultures on 310 preliminary demonstrating gram-positive cocci in the aerobic bottle of only 1 set. Repeat stent 12/29 pending. Urine culture demonstrating ESBL E. coli. MRSA nares positive. Infectious disease is consulted, recommends treating for 6 weeks for the patient's stage IV sacral ulcer with associated osteomyelitis. Patient only on vancomycin for now until further information on blood culture results. Thinks that the urine culture with a history of a fistulous connection may possibly be asymptomatic bacteriuria. Zosyn was discontinued. Urology was also consulted for the recent finding of the patient's bladder mass however no surgical intervention or cystoscopy at this time. Recommends possibly starting oxybutynin at 10 mg p.o. daily to control any bladder spasms. General surgery also consulted, patient did have a debridement 2 days ago of her left lower extremity and of her sacral ulcer, wound care on board. Continue to monitor closely while she is here. Although this document has been carefully reviewed, there may still be some phonetic and other typographical errors. These errors are purely grammatical due to imperfections in the software program and should not be construed in any way to compromise the substance of the patient's medical care during this visit.
--- NOTE | 2024-12-29 12:13 | PC.SS ---
SS follow up note; SS contacted patient's sister Mayra reported she was not able to look into SNF's however asked SS to contact her tomorrow therefore she will have an answer by tomorrow with chosen SNF.
--- NOTE | 2024-12-29 12:59 | ESPR_ITS ---
Subjective Subjective Interval history: called lab they are working up the other pos bc from 12/26 and the one from 12/27if all coag neg. then likely no worried unless more pos noted. ua notable. cx noted. on merrem. macrobid will work the same. underlying dm noted. but creat ok. can not r/o asb hereas pt remains afebrile. Exam Vital Signs Temp Pulse Resp BP Pulse Ox O2 Del Method 98.7 F 83 16 161/73 H 98 Room Air 12/29/24 11:00 12/29/24 11:00 12/29/24 11:00 12/29/24 11:00 12/29/24 11:00 12/29/24 11:00 Narrative Exam still lots of pain in sacral area. no bx noted. Objective - Internal Medicine Labs 12/29/24 04:58 12/29/24 04:58 Labs: Laboratory Results - last 24 hr 12/28/24 12/28/24 12/29/24 12:18 21:11 04:58 WBC 8.6 RBC 2.73 L Hgb 8.1 L Hct 25.0 L MCV 92 MCH 29.7 MCHC 32.4 RDW Std Deviation 42.9 Plt Count 404 Neut % (Auto) 57 Lymph % (Auto) 28 Patrick % (Auto) 9 Eos % (Auto) 5 Baso % (Auto) 0 Neut # (Auto) 5.0 Lymph # (Auto) 2.4 Patrick # (Auto) 0.8 Eos # (Auto) 0.4 Baso # (Auto) 0.0 Immature Gran # (Auto) 0.02 H Absolute Nucleated RBC 0.00 Immature Gran % 0 Nucleated RBC % 0 Sodium 137 136 Potassium 4.0 3.9 Chloride 109 H 106 Carbon Dioxide 20.9 20.4 Anion Gap 7 10 BUN 11 9 Creatinine 0.7 0.7 Estim Creat Clear Calc 69.2 69.2 eGFR > 60 > 60 BUN/Creatinine Ratio 16 13 Glucose [address] Glu mg/dL 171 H Hemoglobin A1c 7.6 H Calculated Osmolality 276 281 Calcium 8.6 8.8 Phosphorus 3.3 3.2 Magnesium 1.8 2.0 Vancomycin Trough 23.7 H* Hepatitis C Antibody Non Reactive Assessment & Plan A&P Narrative pos bc , gpc, may be contaminants if all coag neg. pos urine cx and ua in pt with hx of fistulous connectioncan not r/o asb. creat ok possible sacral osteo neg echo noted await repeat bc and other data hep c neg procal neg 12/25. ok to treat for 6 weeks with appropriate abx, but du's are not improved with abx but with avoidance of pressure. changed gnr coverage to macrobid left on vanco till more data on bc. will try to address rx duration on friday am, but no matter what abx used, need to avoid pressure to the area. organism in urine unlikely to be same as in bc or in sacral wound. get a biopsy to r/o ca as a cause of the du as she is young Time Spent With Patient Time: Total time spent is greater than 50% in coordination of care (as documented) at patient's floor/unit and/or counseling patient:
[2024-12-29] MEDS: NITROFURANTOIN MACRO 100 MG CAPSULE PO ×2 (13:47→20:18)
[2024-12-29] MEDS: DiphenhydrAMINE 25 MG CAPSULE PO (20:18)
[2024-12-30] VITALS (8 sets, daily range): BP systolic 152–158; BP diastolic 50–80; PULSE 76–99; RESP 14–19; TEMP 36.6–37.2; O2SAT 99–100
[2024-12-30 06:00] LABS: Basophils % (Auto) 0 % (0-2.5); Eosinophils # (Auto) 0.5 Thou/mm3 (0.0-0.5); Eosinophils % (Auto) 5 % (0-10); Hematocrit 25.7 % (36.0-46.0); Immature Granulocytes % (Auto) 0 % (0-0); Immature Granulocytes Auto 0.03 Thou/mm3 (0.00-0.00); Lymphocytes # (Auto) 2.8 Thou/mm3 (1.0-4.8); Lymphocytes % (Auto) 29 % (10-50); Mean Corpuscular HGB Conc 33.1 g/dl (31.0-37.0); Mean Corpuscular Hemoglobin 29.3 pg (25.0-35.0); Mean Corpuscular Volume 89 fL (80-100); Monocytes # (Auto) 0.7 Thou/mm3 (0.0-0.8); Monocytes % (Auto) 7 % (0-12); Neutrophils # (Auto) 5.7 Thou/mm3 (1.8-7.7); Neutrophils % (Auto) 58 % (37-80); Nucleated Red Blood Cell % 0 /100 WBC (0); Platelet Count 425 Thou/mm3 (140-440); RDW Standard Deviation 40.9 fL (36.4-46.3); White Blood Count 9.8 Thou/mm3 (3.6-11.0)
[2024-12-30 06:04] LABS: Hemoglobin 8.5 g/dL (12.0-16.0)
[2024-12-30 06:50] LABS: Alanine Aminotransferase < 7 U/L (10-49); Albumin, Serum 3.4 gm/dL (3.4-4.8); Alkaline Phosphatase 73 U/L (46-116); Anion Gap 10 (7-16); Aspartate Amino Transferase < 10 U/L (0-34); BUN/Creatinine Ratio 13 Ratio (12-20); Bilirubin,Total 0.2 mg/dL (0.3-1.2); Blood Urea Nitrogen 8 mg/dL (9-23); Calcium (Corrected) 9.5 mg/dL (8.5-10.1); Carbon Dioxide 20.9 mMol/L (20.0-31.0); Chloride 106 mMol/L (98-107); Creatinine (Component) 0.6 mg/dL (0.6-1.3); Estimated Creatinine Clearance 80.7 mL/min (>60); Globulin 3.3 gm/dL (2.3-3.5); Glucose 197 mg/dL (74-106); Magnesium 1.6 mg/dL (1.6-2.6); Osmolality,Calculated 277 (275-295); Phosphorous 3.2 mg/dL (2.4-5.1); Potassium 3.9 mMol/L (3.4-5.1); Sodium 137 mMol/L (136-145); Total Protein 6.7 gm/dL (5.7-8.2); eGFR > 60 See Note
[2024-12-30] MEDS: INSULIN LISPRO (AdmeLOG) 1 UNIT/0.01 ML UNIT SC ×2 (07:54→11:51)
[2024-12-30] MEDS: methocarbamoL 500 MG TABLET PO ×2 (08:43→20:41)
[2024-12-30] MEDS: NITROFURANTOIN MACRO 100 MG CAPSULE PO ×2 (08:43→20:41)
[2024-12-30] MEDS: VIT B12/Vit C/FA (Nephrovite) TABLET 1 TAB PO (08:43)
[2024-12-30] MEDS: PANTOPRAZOLE INJ 40 MG VIAL IVP (08:44)
[2024-12-30] MEDS: ENOXAPARIN SOD INJ 40 MG/0.4 ML SYRINGE SC (08:44)
[2024-12-30] MEDS: VANCOMYCIN/NS 750 MG IVPB 750 MG/150 ML BAG 120 MG IV (09:15)
--- NOTE | 2024-12-30 09:19 | PC.SS ---
Addendum entered by Emi Ayers 12/30/24 14:44: SS met with patient in regards to chosen facility and she said she would like to discharge to [facility], however SS attempted to contact patient's sister, Mayra and did not answer, SS left voicemail with call back number. SS will follow up with Mayra once available and inform her that SS met with patient and she would like to discharge to [facility]. SS contacted Isabel from [facility] and she informed SS she will check status on bed availability and contact SS to update on bed status. Original Note: SS contacted patient's sister Mayra to follow up on SNF choice, Mayra reported she still has to discuss SNF choice with patient, SS informed her that patient is getting closer to discharge and will need to decide what on choice of SNF. SS will follow up again at a later time with Mayra. SS will stand by for further needs.
[2024-12-30] MEDS: Magnesium Sulfate 4 GM Ivpb 4 GM/50 ML BAG IV (10:31)
--- NOTE | 2024-12-30 12:37 | ESPR_ITS ---
<Statement entered by Anjel Blancas MD - 12/30/24 15:30> Patient was seen and examined at the bedside. Patient's family has been indecisive in regards to the take the patient to SNF. Repeat blood cultures are coming negative x 24 hours. Will wait for final cultures. Continue with vancomycin and Macrobid per ID recommendations. No acute overnight events were reported. Hemoglobin was stable at 8.5. Palpation was repleted. Currently continue current regimen. All labs and orders were reviewed. I saw and examined the patient, and I agree with current management stated by Dr Britta MD,PGY1. Plan of care was discussed with the attending physician and resident physician. Disclaimer: Despite multiple revisions, due to the dictation software being used, the document bellow may not be free of grammatical errors including phonetic/typographic errors. However, this does not deter from our commitment to providing health care in the patient's best interest in mind. Dr. 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 Presented on 12/25 for recurrent leakage around Reid catheter, dysuria, and foul-smelling urine x24 hours and admitted for work-up and management of chronic Reid catheter associated UTI and coccygeal osteomyelitis (stage IV sacral ulcer). 12/26: Seen and examined at bedside in ED and on medical floor. No acute overnight events reported. Denies fever, chills, nausea, vomiting, shortness of breath, or chest pain. States that she has a erosion control specialist who sees patient after being discharged from SNF approximately 3 weeks ago. Patient is satisfied with care but heike evaluation, noted to have dry and gangrenous lesions on heel and lateral aspect of the left lower extremity: So we will look into APS consult at this time and child protective services social worker notified. Will continue ceftriaxone and doxycycline follow-up blood and urine cultures. Wound care order placed, orthopedic surgery and infectious disease consulted for osteomyelitis, and oncology consulted for bladder mass seen on imaging. Will follow-up on recommendations. 12/27: Seen and examined at bedside on medical floors. No acute overnight events reported. Denies fever, chills, N/V, SOB, or chest pain. Orthopedic surgery consulted and deferred possible LLE procedure to general surgery, who stated that given R AKA is still healing and will not pursue definitive surgical treatment of LLE. However, general surgery was able to debride sacral decubitus ulcer and packed, LLE wounds also debrided. Oncology also consulted given bladder mass seen on CT and recommended urology consult for cystoscopy with biopsy. Thus, consult placed and urologist contacted regarding case and plans to see patient tomorrow after urine cytology obtained. Per ID, given positive 2/2 blood cultures with GPC, will obtain another set of blood cultures and doxycycline DC'd and switched to vancomycin. Echo also ordered. Patient's sister, Mayra, at bedside and updated regarding current plans and management. 12/28: Seen and examined at bedside on medical floors. No acute overnight events reported. No fevers overnight and WBC remained stable. Second round of blood cultures noted to be positive in 1 of 2 bottles for GPC. Will send second set of blood cultures tomorrow. Echo obtained and showed no signs of vegetations. Urology evaluated patient and deemed that given GPC bacteremia that is not safe to undergo cystoscopy. MRSA nares positive and urine culture growing GNR, ID to follow. 12/29: Seen and examined at bedside on medical floors. No acute overnight events reported. No fevers overnight and WBC continues to remain stable. Patient endorses abdominal pain but is chronic and states that she has experienced this at home. Will restart patient's home methocarbamol. 12/30: Seen and examined at bedside on medical floors. No acute overnight events reported. No fevers overnight and WBC stable and within normal limits. Continues to endorse abdominal pain despite resuming methocarbamol and will start on simethicone to see if it helps relieve patient symptoms. Spoke to patient's sister regarding possible PICC line placement as she is POA and patient prefers to have sister around to make medical decisions. Plan to have sister come tomorrow at 10 AM and will have discussion then. Exam Vital Signs Temp Pulse Resp BP Pulse Ox O2 Del Method 98.2 F 83 18 154/50 H 100 Room Air 12/30/24 11:23 12/30/24 11:23 12/30/24 11:23 12/30/24 11:23 12/30/24 11:23 12/30/24 11:23 Narrative Exam General: AOx3, laying comfortably on bed, able to speak full sentences HEENT: NC/AT, mucous membranes moist, bilateral sclera anicteric Cardiovascular: regular rate and rhythm, S1/S2 present, no murmurs appreciated Pulmonary: clear to auscultation bilaterally, no rales/rhonchi/wheezes Abdominal: epigastric abdominal pain, ileostomy noted and functional with stool, soft, non-tender, non-distended Musculoskeletal: RLE s/p AKA, LLE s/p 3rd digit amputation Skin: stage 4 sacral ulcer and LLE leions now bandaged and s/p I&D Neuro: CN II-XII intact, no focal deficits Objective Labs 12/31/24 05:25 12/31/24 05:25 Labs: Laboratory Results - last 24 hr 12/30/24 05:00 WBC 9.8 RBC 2.90 L Hgb 8.5 L Hct 25.7 L MCV 89 MCH 29.3 MCHC 33.1 RDW Std Deviation 40.9 Plt Count 425 Neut % (Auto) 58 Lymph % (Auto) 29 Elbert % (Auto) 7 Eos % (Auto) 5 Baso % (Auto) 0 Neut # (Auto) 5.7 Lymph # (Auto) 2.8 Elbert # (Auto) 0.7 Eos # (Auto) 0.5 Baso # (Auto) 0.0 Immature Gran # (Auto) 0.03 H Absolute Nucleated RBC 0.00 Immature Gran % 0 Nucleated RBC % 0 Sodium 137 Potassium 3.9 Chloride 106 Carbon Dioxide 20.9 Anion Gap 10 BUN 8 L Creatinine 0.6 Estim Creat Clear Calc 80.7 eGFR > 60 BUN/Creatinine Ratio 13 Glucose 197 H D Calculated Osmolality 277 Calcium 9.0 Corrected Calcium 9.5 Phosphorus 3.2 Magnesium 1.6 Total Bilirubin 0.2 L AST < 10 ALT < 7 L Alkaline Phosphatase 73 Total Protein 6.7 Albumin 3.4 Globulin 3.3 Albumin/Globulin Ratio 1.0 L Quality Measures Quality Measures none Advance care planning discussed with:: other Assessment & Plan Assessment Current Active Medications: Generic Name Dose Route Start Last Admin Trade Name Freq PRN Reason Stop Dose Admin Acetaminophen 1,000 mg 12/27/24 09:03 Acetaminophen 500 Mg Tablet PO 01/25/25 05:20 Q6H PRN Fever >100 Atorvastatin Calcium 40 mg 12/30/24 21:00 Atorvastatin Calcium 20 Mg Tablet PO 01/29/25 20:59 HS DEWAYNE Calamine 0 ml 12/28/24 14:44 Calamine Lotion 120 Ml Btl TOP 01/27/25 14:43 UD PRN ITCHING Dextrose 50 ml 12/26/24 05:44 Dextrose 50%-Water Inj 50 Ml Syringe IV 01/25/25 05:43 Q15MIN PRN BG <50 OR BG <70 & pt unresponsive Diphenhydramine HCl 25 mg 12/27/24 23:40 12/29/24 20:18 Diphenhydramine 25 Mg Capsule PO 01/26/25 23:39 25 mg HS DEWAYNE Administration Enoxaparin Sodium 40 mg 12/26/24 09:00 12/30/24 08:44 Enoxaparin Sod Inj 40 Mg/0.4 Ml Syringe SC 01/09/25 08:59 40 mg QDAY DEWAYNE Administration Hydromorphone HCl 0.5 mg 12/26/24 05:26 Hydromorphone Inj 2 Mg/Ml Vial IVP 12/31/24 05:25 Q3H PRN Pain 7-10 Protocol Vancomycin/Sodium Chloride 750 mg in 150 mls @ 120 mls/hr 12/29/24 10:00 12/30/24 10:30 Vancomycin/Ns 750 Mg Ivpb IV 01/05/25 09:59 Infused BID@1000,2200 DEWAYNE Infusion Protocol Magnesium Sulfate 4 gm in 50 mls @ 12.5 mls/hr 12/30/24 09:35 12/30/24 10:31 Magnesium Sulfate Ivpb IV 12/30/24 13:34 12.5 mls/hr X1 ONE Administration Insulin Human Lispro 0 unit 12/29/24 11:25 12/30/24 11:51 Insulin Lispro (Admelog) 1 Unit/0.01 Ml Unit SC 01/25/25 07:29 3 unit AC DEWAYNE Administration Protocol Methocarbamol 500 mg 12/30/24 09:00 12/30/24 08:43 Methocarbamol 500 Mg Tablet PO 01/29/25 08:59 500 mg BID DEWAYNE Administration Nitrofurantoin Macrocrystals 100 mg 12/29/24 13:15 12/30/24 08:43 Nitrofurantoin Macro 100 Mg Capsule PO 01/05/25 13:14 100 mg BID DEWAYNE Administration Ondansetron HCl 4 mg 12/26/24 05:21 Ondansetron Inj 2 Mg/Ml Inj 2 Ml IV 01/25/25 05:20 Q6H PRN NAUSEA OR VOMITING Protocol Oxycodone/Acetaminophen 1 tab 12/29/24 08:33 12/29/24 21:41 Oxycodone/Apap 5/325 Tablet PO 01/03/25 08:32 1 tab Q6HR PRN Administration PAIN SCALE 4-10(Mod-Sev Protocol Pantoprazole Sodium 40 mg 12/26/24 09:00 12/30/24 08:44 Pantoprazole Inj 40 Mg Vial IVP 01/25/25 08:59 40 mg QDAY [facility] Administration Pharmacy Consult 1 each 12/27/24 09:45 Vancomycin Pharmacy To Dose 1 Each Each IV 01/26/25 09:44 QDAY PRN PROTOCOL Vitamin B Complex/Vit C/Folic Acid 1 tab 12/26/24 09:00 12/30/24 08:43 Vit B12/Vit C/Fa (Nephrovite) Tablet PO 01/25/25 08:59 1 tab QDAY [facility] Administration Plan Ni Schmid is a 64-y/o female with a PMHx of endometrial carcinoma diagnosed in 2016 s/p robotic hysterectomy and bilateral salpingo-oophorectomy at [facility] in 2017, s/p brachytherapy and external beam radiation for recurrent vaginal cuff tumor in 2018 and chemotherapy until 2021 for the same, 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 Presented on 12/25 for recurrent leakage around Reid catheter, dysuria, and foul-smelling urine x24 hours and admitted for work-up and management of chronic Reid catheter associated UTI and coccygeal osteomyelitis (stage IV sacral ulcer). #Coccygeal osteomyeltiis #Stage IV sacral ulcer #Severe PAD, s/p RLE BKA + LLE 3rd digit amputation #GPC bacteremia Echo on 12/27 without signs of vegetations. EF 55 to 60% with normal LV size and function, stage I diastolic dysfunction. Blood cultures 12/25: 2/2 bottles positive for Staph hominis Blood cultures 12/27: 1/2 bottles positive for GPC, ID to follow Blood cultures 12/29: Pending S/p debridement of sacral ulcer and LLE wounds on 12/27 ? Vancomycin IV BID (12/27-) ? Will talk to patient and sister tomorrow regarding PICC line placement ? Referral to wound care ? Vitamin B complex, vitamin C, folic acid tablets PO daily #Catheter associated UTI #Chronic reid #Microscopic hematuria Ceftriaxone 2 g IV daily (12/25-12/29) Urine culture 12/27: ESBL E. coli ? Nitrofurantoin 100 mg p.o. twice daily (12/29-) #Hx of endometrial CA s/p hysterectomy + BSO in 2016, s/p radiation + chemotherapy 2016?2021 CT A/P showed 3.1 cm heterogeneously enhancing nodular mass adjacent to superior aspect of the urinary bladder, suspicious for neoplasm ? Oncology consulted, appreciate recommendations ? Recommended urology consult and cystoscopy with biopsy ? Urology consulted, appreciate recommendations ? States that currently not safe to undergo cystoscopy ? Follow-up urine cytology #Type 2 diabetes mellitus A1c 7.6%. ? SSI with Accu-Checks ? Increased SSI to step 3 #Hyperlipidemia ? Home Atorvastatin 40 mg p.o. daily #Normocytic anemia, secondary to #Iron deficiency Normocytic anemia Hb 9.4 MCV 89. Iron panel: Iron 23, TIBC 601, iron saturation 3%, unsaturated iron binding 578 #Abdominal pain ? Home methocarbamol 500 mg p.o. twice daily ? Simethicone 80 mg PO QID PRN #Non-anion gap metabolic acidosis in setting of ileostomy, resolved Antibiotics: Vancomycin 12/27- Macrobid 12/29- Ceftriaxone 12/25-12/29 Doxycycline 12/26-12/27 Hospital management: Disposition: osteomyelitis, GPC bacteremia; ID following Fluids: none Diet: carbohydrate consistent low Lines: PIV DVT prophylaxis: enoxaparin GI prophylaxis: pantoprazole CODE STATUS: limited code, no chest compressions ----- Plan discussed with attending physician Dr. Kitchen and senior resident physician Dr. Magalis Callejas MD PGY-1 Internal Medicine Attending Provider Attestation/Addendum I have examined the patient, reviewed labs and imaging findings, discussed the case with the resident(s), and reviewed entered orders. I agree with the plan of care as outlined in this note, with these additional summaries/recommendations: Patient seen at bedside. Patient has multiple ongoing infections at this time. Patient has stage IV sacral ulcer with coccygeal osteomyelitis. He is status post debridement with general surgery and we will continue wound care with frequent pressure redistribution. Will discuss with patient and family if they would like to proceed with PICC line for osteomyelitis. Infectious disease following. Patient also noted to have Staph hominis bacteremia. We will continue IV antibiotics. Patient also noted to have catheter associated urinary tract infection. Reid catheter was exchanged in the emergency department. Urine culture grew ESBL E. coli. Echo revealed EF 55%. Urology was consulted for the recent finding of the patient's bladder mass however no surgical intervention or cystoscopy at this time. Urology recommends starting oxybutynin to control any bladder spasms. Repeat hematology and chemistry panel in AM. Dr. Esme MD
[2024-12-30] MEDS: DiphenhydrAMINE 25 MG CAPSULE PO (20:40)
--- NOTE | 2024-12-30 22:21 | PC.NURSE ---
Cannot administer Vancomycin IV yet scheduled at 2200, awaiting Vancomycin Trough result.
[2024-12-30 22:23] LABS: Vancomycin,Trough 22.2 mcg/mL (5.0-10.0)
[2024-12-31] VITALS (14 sets, daily range): BP systolic 104–171; BP diastolic 53–83; PULSE 75–95; RESP 16–22; TEMP 36.4–36.8; O2SAT 92–100; BMI 23.3
--- NOTE | 2024-12-31 | XR_ITS ---
Examination: Ultrasound-guided needle placement left brachial vein. Dual-lumen central line placement (PICC line). Fluoroscopy time: 1.7 Dose: 3.15 mGy Exam date and time:12/31/2024, 1:19 PM Indications: No intravenous access for medications, no IV access. A timeout was completed verifying correct patient, procedure, site, positioning Informed consent provided Technique: The patient's site was prepped and draped in sterile fashion. Maximum barrier sterile [id number], hand hygience, ultrasound sterile technique Ultrasound guided needle placement left brachial vein Ultrasound images recorded and stored. 5 cc 1% lidocaine administered for local anesthetic. Successful micropuncture with a 21-gauge needle is performed. 0.18 wire guide is then introduced into the SVC under fluoroscopic guidance. Dual-lumen catheter dilator is then introduced, followed by the catheter in the SVC and proper position under fluoroscopic guidance. Successful aspiration of blood and flushing with heparinized saline is then performed in the 2 venous limbs. The catheter sutured in place. Findings: Under fluoroscopy, the tip of the catheter is in good position in the vena cava. Portable chest x-ray, post line placement is ordered. Estimated blood loss 3 cc The patient tolerated the procedure well and was in stable and satisfactory condition at completion of the procedure Impression: Successful ultrasound-guided needle placement left brachial vein Successful placement of dual lumen central line, percutaneous May use central line.
[2024-12-31] MEDS: oxyCODONE/APAP 5/325 TABLET 1 TAB PO ×3 (00:15→19:41)
[2024-12-31 06:05] LABS: Basophils # (Auto) 0.1 Thou/mm3 (0.0-0.2); Basophils % (Auto) 1 % (0-2.5); Eosinophils # (Auto) 0.6 Thou/mm3 (0.0-0.5); Eosinophils % (Auto) 5 % (0-10); Hematocrit 27.1 % (36.0-46.0); Hemoglobin 8.9 g/dL (12.0-16.0); Immature Granulocytes % (Auto) 0 % (0-0); Immature Granulocytes Auto 0.04 Thou/mm3 (0.00-0.00); Lymphocytes # (Auto) 2.9 Thou/mm3 (1.0-4.8); Lymphocytes % (Auto) 26 % (10-50); Mean Corpuscular HGB Conc 32.8 g/dl (31.0-37.0); Mean Corpuscular Hemoglobin 28.8 pg (25.0-35.0); Mean Corpuscular Volume 88 fL (80-100); Monocytes # (Auto) 0.9 Thou/mm3 (0.0-0.8); Monocytes % (Auto) 8 % (0-12); Neutrophils # (Auto) 6.7 Thou/mm3 (1.8-7.7); Neutrophils % (Auto) 60 % (37-80); Nucleated Red Blood Cell % 0 /100 WBC (0); Platelet Count 462 Thou/mm3 (140-440); RDW Standard Deviation 40.8 fL (36.4-46.3); Red Blood Count 3.09 Miln/mm3 (4.00-5.20); White Blood Count 11.1 Thou/mm3 (3.6-11.0)
[2024-12-31 06:42] LABS: Alanine Aminotransferase < 7 U/L (10-49); Albumin, Serum 3.4 gm/dL (3.4-4.8); Alkaline Phosphatase 76 U/L (46-116); Anion Gap 11 (7-16); Aspartate Amino Transferase 14 U/L (0-34); BUN/Creatinine Ratio 12 Ratio (12-20); Bilirubin,Total 0.2 mg/dL (0.3-1.2); Blood Urea Nitrogen 7 mg/dL (9-23); Calcium 8.9 mg/dL (8.3-10.6); Calcium (Corrected) 9.4 mg/dL (8.5-10.1); Carbon Dioxide 20.8 mMol/L (20.0-31.0); Chloride 104 mMol/L (98-107); Creatinine (Component) 0.6 mg/dL (0.6-1.3); Estimated Creatinine Clearance 80.7 mL/min (>60); Globulin 3.5 gm/dL (2.3-3.5); Glucose 153 mg/dL (74-106); Osmolality,Calculated 272 (275-295); Phosphorous 3.4 mg/dL (2.4-5.1); Potassium 3.9 mMol/L (3.4-5.1); Sodium 136 mMol/L (136-145); Total Protein 6.9 gm/dL (5.7-8.2); eGFR > 60 See Note
[2024-12-31] MEDS: NITROFURANTOIN MACRO 100 MG CAPSULE PO ×2 (08:28→20:37)
[2024-12-31] MEDS: methocarbamoL 500 MG TABLET PO ×2 (08:28→20:37)
[2024-12-31] MEDS: VIT B12/Vit C/FA (Nephrovite) TABLET 1 TAB PO (08:28)
[2024-12-31] MEDS: PANTOPRAZOLE INJ 40 MG VIAL IVP (08:30)
[2024-12-31] MEDS: ENOXAPARIN SOD INJ 40 MG/0.4 ML SYRINGE SC (08:31)
--- NOTE | 2024-12-31 09:23 | ESPR_ITS ---
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 so favor teri before cessation of vanco Exam Vital Signs Temp Pulse Resp BP Pulse Ox O2 Del Method 97.7 F 83 18 153/70 H 99 Room Air 12/31/24 07:30 12/31/24 07:30 12/31/24 07:30 12/31/24 07:30 12/31/24 07:30 12/31/24 07:30 Objective - Internal Medicine Labs 12/31/24 05:25 12/31/24 05:25 Labs: Laboratory Results - last 24 hr 12/30/24 12/31/24 20:52 05:25 WBC 11.1 H RBC 3.09 L Hgb 8.9 L Hct 27.1 L MCV 88 MCH 28.8 MCHC 32.8 RDW Std Deviation 40.8 Plt Count 462 H D Neut % (Auto) 60 Lymph % (Auto) 26 Kemper % (Auto) 8 Eos % (Auto) 5 Baso % (Auto) 1 Neut # (Auto) 6.7 Lymph # (Auto) 2.9 Kemper # (Auto) 0.9 H Eos # (Auto) 0.6 H Baso # (Auto) 0.1 Immature Gran # (Auto) 0.04 H Absolute Nucleated RBC 0.00 Immature Gran % 0 Nucleated RBC % 0 Sodium 136 Potassium 3.9 Chloride 104 Carbon Dioxide 20.8 Anion Gap 11 BUN 7 L Creatinine 0.6 Estim Creat Clear Calc 80.7 eGFR > 60 BUN/Creatinine Ratio 12 Glucose 153 H Calculated Osmolality 272 L Calcium 8.9 Corrected Calcium 9.4 Phosphorus 3.4 Magnesium 2.0 Total Bilirubin 0.2 L AST 14 ALT < 7 L Alkaline Phosphatase 76 Total Protein 6.9 Albumin 3.4 Globulin 3.5 Albumin/Globulin Ratio 1.0 L Vancomycin Trough 22.2 H* Assessment & Plan A&P Narrative pos bc s hominis in all 3 pos specimens pos urine cx and ua in pt with hx of fistulous connection can not r/o asb. creat ok possible sacral osteo neg transthoracic echo noted hep c neg procal neg 12/25. ok to treat for 6 weeks with appropriate abx, but du's are not improved with abx but with avoidance of pressure. changed gnr coverage to macrobid on wed 12/29/24 left on vanco till teri neg she has a rt sided port that should be noted. so if teri neg, then this may be iv related bacteremia no matter what abx used, need to avoid pressure to the area. organism in urine unlikely to be same as in bc or in sacral wound. get a biopsy to r/o ca as a cause of the du as she is young at only 64 yoa. try for a teri before vanco cessation please we need to be accurate with our dx as much as possible. if teri neg, then we may go to ertapenem and vanco then doxy for home. if teri pos, may have to give longer iv vanco. will look in again on friday Time Spent With Patient Time: Total time spent is greater than 50% in coordination of care (as documented) at patient's floor/unit and/or counseling patient:
[2024-12-31] MEDS: VANCOMYCIN/NS 500 MG IVPB 100 ML 120 MG IV ×2 (10:45→22:23)
[2024-12-31] MEDS: INSULIN LISPRO (AdmeLOG) 1 UNIT/0.01 ML UNIT SC ×2 (11:39→17:05)
[2024-12-31] MEDS: HEPARIN SOD LOCK SYR 100 UNIT/ML 500 UNIT STFIELD (14:26)
[2024-12-31] MEDS: LIDOCAINE INJ PF 1% 30 ML VIAL 10 ML INFL (14:26)
--- NOTE | 2024-12-31 15:27 | PC.NURSE ---
1449 patient is awake, alert, breathing unlabored, s/p picc line insertion to left arm by dr fuentes, dressing dry with no bleeding, patient transferred back to room 371, bedside report given to Ida LEON
--- NOTE | 2024-12-31 16:38 | ESPR_ITS ---
<Statement entered by Anjel Blancas MD - 12/31/24 18:29> Patient was seen and examined at the bedside. No acute overnight events were reported. Blood cultures coming negative x 48 hours. We had a discussion with the family this morning and we will proceed with placing PICC line for IV antibiotic for GPC bacteremia. Currently patient is on vancomycin and nitro for type per ID recommendations. Will perform THOMAS to rule out vegetations as per ID recs. Blood pressure was slightly elevated this morning. Hemoglobin was stable. White count improving. Kidney functions slightly improved. Continue current management. All labs and orders were reviewed. I saw and examined the patient, and I agree with current management stated by Dr Britta MD,PGY1. Plan of care was discussed with the attending physician and resident physician. Disclaimer: Despite multiple revisions, due to the dictation software being used, the document bellow may not be free of grammatical errors including phonetic/typographic errors. However, this does not deter from our commitment to providing health care in the patient's best interest in mind. Dr. 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 Presented on 12/25 for recurrent leakage around Reid catheter, dysuria, and foul-smelling urine x24 hours and admitted for work-up and management of chronic Reid catheter associated UTI and coccygeal osteomyelitis (stage IV sacral ulcer). 12/26: Seen and examined at bedside in ED and on medical floor. No acute overnight events reported. Denies fever, chills, nausea, vomiting, shortness of breath, or chest pain. States that she has a electrical instrument technician who sees patient after being discharged from [facility] approximately 3 weeks ago. Patient is satisfied with care but heike evaluation, noted to have dry and gangrenous lesions on heel and lateral aspect of the left lower extremity: So we will look into APS consult at this time and social media developer notified. Will continue ceftriaxone and doxycycline follow-up blood and urine cultures. Wound care order placed, orthopedic surgery and infectious disease consulted for osteomyelitis, and oncology consulted for bladder mass seen on imaging. Will follow-up on recommendations. 12/27: Seen and examined at bedside on medical floors. No acute overnight events reported. Denies fever, chills, N/V, SOB, or chest pain. Orthopedic surgery consulted and deferred possible LLE procedure to general surgery, who stated that given R AKA is still healing and will not pursue definitive surgical treatment of LLE. However, general surgery was able to debride sacral decubitus ulcer and packed, LLE wounds also debrided. Oncology also consulted given bladder mass seen on CT and recommended urology consult for cystoscopy with biopsy. Thus, consult placed and urologist contacted regarding case and plans to see patient tomorrow after urine cytology obtained. Per ID, given positive 2/2 blood cultures with GPC, will obtain another set of blood cultures and doxycycline DC'd and switched to vancomycin. Echo also ordered. Patient's sister, Mayra, at bedside and updated regarding current plans and management. 12/28: Seen and examined at bedside on medical floors. No acute overnight events reported. No fevers overnight and WBC remained stable. Second round of blood cultures noted to be positive in 1 of 2 bottles for GPC. Will send second set of blood cultures tomorrow. Echo obtained and showed no signs of vegetations. Urology evaluated patient and deemed that given GPC bacteremia that is not safe to undergo cystoscopy. MRSA nares positive and urine culture growing GNR, ID to follow. 12/29: Seen and examined at bedside on medical floors. No acute overnight events reported. No fevers overnight and WBC continues to remain stable. Patient endorses abdominal pain but is chronic and states that she has experienced this at home. Will restart patient's home methocarbamol. 12/30: Seen and examined at bedside on medical floors. No acute overnight events reported. No fevers overnight and WBC stable and within normal limits. Continues to endorse abdominal pain despite resuming methocarbamol and will start on simethicone to see if it helps relieve patient symptoms. Spoke to patient's sister regarding possible PICC line placement as she is POA and patient prefers to have sister around to make medical decisions. Plan to have sister come tomorrow at 10 AM and will have discussion then. 12/31: Seen and examined at bedside on medical floors. No acute overnight events reported. Spoke to patient and sister at bedside regarding PICC line placement as well as THOMAS that was recommended by infectious disease due to blood cultures resulting the same species. Risks, benefits, and options discussed at length and both were in agreement for PICC line placement as well as THOMAS. Exam Vital Signs Temp Pulse Resp BP Pulse Ox O2 Del Method 97.8 F 86 17 152/64 H 99 Room Air 12/31/24 15:59 12/31/24 15:59 12/31/24 15:59 12/31/24 15:59 12/31/24 15:59 12/31/24 15:59 Narrative Exam General: AOx3, laying comfortably on bed, able to speak full sentences HEENT: NC/AT, mucous membranes moist, bilateral sclera anicteric Cardiovascular: regular rate and rhythm, S1/S2 present, no murmurs appreciated Pulmonary: clear to auscultation bilaterally, no rales/rhonchi/wheezes Abdominal: epigastric abdominal pain, ileostomy noted and functional with stool, soft, non-tender, non-distended Musculoskeletal: RLE s/p AKA, LLE s/p 3rd digit amputation Skin: stage 4 sacral ulcer and LLE leions now bandaged and s/p I&D Neuro: CN II-XII intact, no focal deficits Objective Labs 01/03/25 05:41 01/03/25 05:41 Labs: Laboratory Results - last 24 hr 12/30/24 12/31/24 20:52 05:25 WBC 11.1 H RBC 3.09 L Hgb 8.9 L Hct 27.1 L MCV 88 MCH 28.8 MCHC 32.8 RDW Std Deviation 40.8 Plt Count 462 H D Neut % (Auto) 60 Lymph % (Auto) 26 [place] % (Auto) 8 Eos % (Auto) 5 Baso % (Auto) 1 Neut # (Auto) 6.7 Lymph # (Auto) 2.9 [place] # (Auto) 0.9 H Eos # (Auto) 0.6 H Baso # (Auto) 0.1 Immature Gran # (Auto) 0.04 H Absolute Nucleated RBC 0.00 Immature Gran % 0 Nucleated RBC % 0 Sodium 136 Potassium 3.9 Chloride 104 Carbon Dioxide 20.8 Anion Gap 11 BUN 7 L Creatinine 0.6 Estim Creat Clear Calc 80.7 eGFR > 60 BUN/Creatinine Ratio 12 Glucose 153 H Calculated Osmolality 272 L Calcium 8.9 Corrected Calcium 9.4 Phosphorus 3.4 Magnesium 2.0 Total Bilirubin 0.2 L AST 14 ALT < 7 L Alkaline Phosphatase 76 Total Protein 6.9 Albumin 3.4 Globulin 3.5 Albumin/Globulin Ratio 1.0 L Vancomycin Trough 22.2 H* Quality Measures Quality Measures none Advance care planning discussed with:: patient, legal surragate and sibling Assessment & Plan Assessment Current Active Medications: Generic Name Dose Route Start Last Admin Trade Name Freq PRN Reason Stop Dose Admin Acetaminophen 1,000 mg 12/27/24 09:03 Acetaminophen 500 Mg Tablet PO 01/25/25 05:20 Q6H PRN Fever >100 Atorvastatin Calcium 40 mg 12/30/24 21:00 12/30/24 20:40 Atorvastatin Calcium 20 Mg Tablet PO 01/29/25 20:59 Not Given HS DEWAYNE Calamine 0 ml 12/28/24 14:44 Calamine Lotion 120 Ml Btl TOP 01/27/25 14:43 UD PRN ITCHING Dextrose 50 ml 12/26/24 05:44 Dextrose 50%-Water Inj 50 Ml Syringe IV 01/25/25 05:43 Q15MIN PRN BG <50 OR BG <70 & pt unresponsive Diphenhydramine HCl 25 mg 12/27/24 23:40 12/30/24 20:40 Diphenhydramine 25 Mg Capsule PO 01/26/25 23:39 25 mg HS DEWAYNE Administration Enoxaparin Sodium 40 mg 12/26/24 09:00 12/31/24 08:31 Enoxaparin Sod Inj 40 Mg/0.4 Ml Syringe SC 01/09/25 08:59 40 mg QDAY DEWAYNE Administration Vancomycin/Sodium Chloride 100 mls @ 120 mls/hr 12/31/24 10:00 12/31/24 10:45 Vancomycin/Ns 500 Mg Ivpb IV 01/07/25 09:59 120 mls/hr Q12H DEWAYNE Administration Protocol Insulin Human Lispro 0 unit 12/29/24 11:25 12/31/24 11:39 Insulin Lispro (Admelog) 1 Unit/0.01 Ml Unit SC 01/25/25 07:29 3 unit AC DEWAYNE Administration Protocol Methocarbamol 500 mg 12/30/24 09:00 12/31/24 08:28 Methocarbamol 500 Mg Tablet PO 01/29/25 08:59 500 mg BID DEWAYNE Administration Nitrofurantoin Macrocrystals 100 mg 12/29/24 13:15 12/31/24 08:28 Nitrofurantoin Macro 100 Mg Capsule PO 01/05/25 13:14 100 mg BID DEWAYNE Administration Ondansetron HCl 4 mg 12/26/24 05:21 Ondansetron Inj 2 Mg/Ml Inj 2 Ml IV 01/25/25 05:20 Q6H PRN NAUSEA OR VOMITING Protocol Oxycodone/Acetaminophen 1 tab 12/29/24 08:33 12/31/24 09:16 Oxycodone/Apap 5/325 Tablet PO 01/03/25 08:32 1 tab Q6HR PRN Administration PAIN SCALE 4-10(Mod-Sev Protocol Pantoprazole Sodium 40 mg 01/01/25 09:00 Pantoprazole 40 Mg Tablet PO 01/25/25 08:59 QDAY [facility] Pharmacy Consult 1 each 12/27/24 09:45 Vancomycin Pharmacy To Dose 1 Each Each IV 01/26/25 09:44 QDAY PRN PROTOCOL Simethicone 80 mg 12/30/24 15:38 Simethicone 80 Mg Chew PO 01/29/25 15:37 QID PRN GAS Vitamin B Complex/Vit C/Folic Acid 1 tab 12/26/24 09:00 12/31/24 08:28 Vit B12/Vit C/Fa (Nephrovite) Tablet PO 01/25/25 08:59 1 tab QDAY [facility] Administration Plan Ni Schmid is a 64-y/o female with a PMHx of endometrial carcinoma diagnosed in 2016 s/p robotic hysterectomy and bilateral salpingo-oophorectomy at [facility] in 2016, s/p brachytherapy and external beam radiation for recurrent vaginal cuff tumor in 2018 and chemotherapy until 2021 for the same, 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 Presented on 12/25 for recurrent leakage around Reid catheter, dysuria, and foul-smelling urine x24 hours and admitted for work-up and management of chronic Reid catheter associated UTI and coccygeal osteomyelitis (stage IV sacral ulcer). #Coccygeal osteomyeltiis #Staph hominis bacteremia #Stage IV sacral ulcer #Severe PAD, s/p RLE BKA + LLE 3rd digit amputation Echo on 12/27 without signs of vegetations. EF 55 to 60% with normal LV size and function, stage I diastolic dysfunction. Blood cultures 12/25: 2/2 bottles positive for Staph hominis Blood cultures 12/27: 1/2 bottles positive for Staph hominis Blood cultures 12/29: NGTD S/p debridement of sacral ulcer and LLE wounds on 12/27 ? Vancomycin IV BID (12/27-) ? Status-post PICC line placement 12/31 ? Follow-up THOMAS ? Continue vancomycin until THOMAS and if negative ? if THOMAS (-) -> ertapenem + vancomycin -> doxycycline for home ? if THOMAS (+) -> longer course of IV vancomycin ? Referral to wound care ? Vitamin B complex, vitamin C, folic acid tablets PO daily #Catheter associated UTI #Chronic reid #Microscopic hematuria Ceftriaxone 2 g IV daily (12/25-12/29) Urine culture 12/27: ESBL E. coli ? Nitrofurantoin 100 mg p.o. twice daily (12/29-) #Hx of endometrial CA s/p hysterectomy + BSO in 2016, s/p radiation + chemotherapy 2016?2021 CT A/P showed 3.1 cm heterogeneously enhancing nodular mass adjacent to superior aspect of the urinary bladder, suspicious for neoplasm ? Oncology consulted, appreciate recommendations ? Recommended urology consult and cystoscopy with biopsy ? Urology consulted, appreciate recommendations ? States that currently not safe to undergo cystoscopy ? Follow-up urine cytology #Type 2 diabetes mellitus A1c 7.6%. ? SSI with Accu-Checks ? Increased SSI to step 3 #Hyperlipidemia ? Home Atorvastatin 40 mg p.o. daily #Normocytic anemia, secondary to #Iron deficiency Normocytic anemia Hb 9.4 MCV 89. Iron panel: Iron 23, TIBC 601, iron saturation 3%, unsaturated iron binding 578 #Abdominal pain ? Home methocarbamol 500 mg p.o. twice daily ? Simethicone 80 mg PO QID PRN #Non-anion gap metabolic acidosis in setting of ileostomy, resolved Antibiotics: Vancomycin 12/27- Macrobid 12/29- Ceftriaxone 12/25-12/29 Doxycycline 12/26-12/27 Hospital management: Disposition: osteomyelitis, Staph hominis bacteremia; ID following Fluids: none Diet: carbohydrate consistent low Lines: PIV DVT prophylaxis: enoxaparin GI prophylaxis: pantoprazole CODE STATUS: limited code, no chest compressions ----- Plan discussed with attending physician Dr. Victoria and senior resident physician Dr. Magalis Callejas MD PGY-1 Internal Medicine Attending Provider Attestation/Addendum I have examined the patient, reviewed labs and imaging findings, discussed the case with the resident(s), and reviewed entered orders. I agree with the plan of care as outlined in this note, with these additional summaries/recommendations: Patient seen at bedside. Patient has multiple ongoing infections at this time. Patient has stage IV sacral ulcer with coccygeal osteomyelitis. She is status post debridement with general surgery and we will continue wound care with frequent pressure redistribution. Patient and family would like to proceed with PICC line for osteomyelitis. Infectious disease following. Patient also noted to have Staph hominis bacteremia with subsurface augmentee elint operator and per ID patient would benefit from THOMAS before DC?ing Vancomycin. We will continue IV antibiotics. Patient also noted to have catheter associated urinary tract infection. Reid catheter was exchanged in the emergency department. Urine culture grew ESBL E. coli. Echo revealed EF 55%. Urology was consulted for the recent finding of the patient's bladder mass however no surgical intervention or cystoscopy at this time. Urology recommends starting oxybutynin to control any bladder spasms. Repeat hematology and chemistry panel in AM. Dr. Esme MD
--- NOTE | 2024-12-31 18:29 | PD.RESCONSUL ---
HPI Data of Consult Patient: new to practice Consult date: 01/01/25 Requesting Physician: Jefe Victoria MD Admitting Provider: Eddi Reyes MD Attending Provider: Jefe Victoria MD Primary Care Provider: Emiliano Rosas MD Consult Narrative Reason for consult: Bacteremia, THOMAS to rule out endocarditis History of present illness: Ms. 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 Patient originally presented to emergency department on 12/25/2024 for recurrent leakage around Reid catheter and some burning over 24 hours, patient denied any fever chills or systemic symptoms however patient did endorse severe pain lower back due to worsening coccygeal pressure ulcer which was developed over the last few months. Patient also has severe left lower extremity pain due to cough ulcers and follows wound care closely, every Friday. Patient was recently discharged from long term facility in [place], is chronically wheelchair-bound and patient's sister is her primary decision-maker. ED course: In ED patient's vitals were blood pressure 142/69, heart rate 94, respiratory rate 19, temp 97.8, O2 sat 99 on room air, initial labs remarkable for mild leukocytosis WBC 12, normocytic anemia Hb 9.4 MCV 89, elevated ESR 83 and elevated CRP 8.2, hyperglycemia 265. Urinalysis was remarkable for 2+ protein, 2+ blood, nitrite positive, esterase positive, 30 RBC, 4+ bacteria and > 3000 WBC. Urine cultures and blood cultures ordered. 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 Orthopedics and oncology were consulted. With progression of hospital course General Surgery was officially consulted, eventually had exertional debridement of sacral and left lateral lower extremity wounds performed on 12/27/24, infectious disease was consulted due to sacral osteomyelitis, initially orthopedics was consulted who recommended general surgery consult, urology consulted due to chronic indwelling Reid considering patient being catheter dependent. With the progression of hospital course patient also had PICC line placement due to 2 sets of positive blood cultures and cardiology was consulted for THOMAS to evaluate heart for possible vegetations and rule out bacterial endocarditis. cc:: cc: Jefe Victoria MD Review of Systems Review of Systems Narrative Review of Systems: GENERAL: Denies fevers/chills, diaphoresis. HEENT: Denies headache or visual/hearing changes. Denies nasal discharge. NEURO: Denies unusual weakness or difficulty speaking. CARDIO: Denies chest pain, palpitations. PULM: Denies SOB, cough, wheezing. GI: Denies abdominal pain, no N/V, no C/D. Reports having BMs URO: burning/itching and leakage around the Reid catheter INSERT OPERATOR: Denies menstrual changes, hot flashes. MSK/EXT/SKIN: Severe lower back pain due to pressure ulcer PSYCH: Cooperative, pleasant mood & affect. The rest of the review of systems is otherwise negative. 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 Allergies: Morphine?hives Latex?rash INSERT OPERATOR HISTORY: Menarche?-?Age:?12 :?0 Live?Births:?0 Social history: Occupational?History:?Retired - [employer] Education?Level:?Attended College, did not graduate Marital?Status:?Single Tobacco?Use:?Denies ETOH?Use:?Denies Drug?Note:?Denies Social?History?Note:?Lives?at?rehab Family history: Denies any family history of sudden cardiac , stroke or cancers. Exam Vital Signs Temp Pulse Resp BP Pulse Ox O2 Del Method 97.8 F 86 17 152/64 H 99 Room Air 12/31/24 15:59 12/31/24 15:59 12/31/24 15:59 12/31/24 15:59 12/31/24 15:59 12/31/24 15:59 Narrative Exam General: AOx3, laying comfortably on bed, able to speak full sentences HEENT: NC/AT, mucous membranes moist, bilateral sclera anicteric Cardiovascular: regular rate and rhythm, S1/S2 present, no murmurs appreciated Pulmonary: clear to auscultation bilaterally, no rales/rhonchi/wheezes Abdominal: epigastric abdominal pain, ileostomy noted and functional with stool, soft, non-tender, non-distended Musculoskeletal: RLE s/p AKA, LLE s/p 3rd digit amputation Skin: stage 4 sacral ulcer and LLE leions now bandaged and s/p I&D Neuro: CN II-XII intact, no focal deficits Results Labs 12/31/24 05:25 12/31/24 05:25 Labs: Short CBC 12/31/24 Range/Units 05:25 WBC 11.1 H (3.6-11.0) Thou/mm3 Hgb 8.9 L (12.0-16.0) g/dL Hct 27.1 L (36.0-46.0) % Plt Count 462 H D (140-440) Thou/mm3 BMP 12/31/24 05:25 Sodium 136 Potassium 3.9 Chloride 104 Carbon Dioxide 20.8 BUN 7 L Creatinine 0.6 Glucose 153 H Calcium 8.9 Liver Function 12/31/24 Range/Units 05:25 Total Bilirubin 0.2 L (0.3-1.2) mg/dL AST 14 (0-34) U/L ALT < 7 L (10-49) U/L Alkaline Phosphatase 76 (46-116) U/L Albumin 3.4 (3.4-4.8) gm/dL Quality Measures Quality Measures none Advance care planning discussed with:: patient Medications Home Medications and Allergies Home Medications ?Medication ?Instructions ?Recorded ?Confirmed ?Type atorvastatin 40 mg tablet 40 mg PO DAILY 04/03/22 12/29/24 History ergocalciferol (vitamin D2) 1,250 1 cap PO WMHS 04/03/22 12/29/24 History mcg (50,000 unit) capsule insulin lispro 100 unit/mL 5 unit subcut TIDACHS 04/03/22 12/29/24 History subcutaneous pen acetaminophen 325 mg tablet 650 mg PO Q6H PRN pain 12/26/24 12/29/24 History (Aminofen) ascorbic acid (vitamin C) 250 mg 250 mg PO QDAY 12/26/24 12/29/24 History tablet (Vitamin C) gabapentin 300 mg capsule 300 mg PO TID 12/26/24 12/29/24 History megestrol 400 mg/10 mL (40 mg/mL) 400 mg PO QDAY 12/26/24 12/29/24 History oral suspension methocarbamol 500 mg tablet 500 mg PO BID 12/26/24 12/29/24 History multivitamin with minerals-ferrous tab PO QDAY 12/26/24 History sulfate 15 mg iron tablet nystatin 100,000 unit/gram topical 1 applic topical QDAY 12/26/24 12/29/24 History powder (Klayesta) Allergies Allergy/AdvReac Type Severity Reaction Status Date / Time fentanyl AdvReac Mild Numbness Verified 12/28/24 08:09 latex AdvReac Mild RASH Verified 07/02/22 12:28 morphine AdvReac Unknown Verified 07/02/22 12:28 Visit Medications Acetaminophen (Acetaminophen 500 Mg Tablet) 1,000 mg PO Q6H PRN PRN Reason: Fever >100 Stop: 01/25/25 05:20 Atorvastatin Calcium (Atorvastatin Calcium 20 Mg Tablet) 40 mg PO HS DEWAYNE Stop: 01/29/25 20:59 Last Admin: 12/30/24 20:40 Dose: Not Given Calamine (Calamine Lotion 120 Ml Btl) 0 ml TOP UD PRN PRN Reason: ITCHING Stop: 01/27/25 14:43 Dextrose (Dextrose 50%-Water Inj 50 Ml Syringe) 50 ml IV Q15MIN PRN PRN Reason: BG <50 OR BG <70 & pt unresponsive Stop: 01/25/25 05:43 Diphenhydramine HCl (Diphenhydramine 25 Mg Capsule) 25 mg PO HS DEWAYNE Stop: 01/26/25 23:39 Last Admin: 12/30/24 20:40 Dose: 25 mg Enoxaparin Sodium (Enoxaparin Sod Inj 40 Mg/0.4 Ml Syringe) 40 mg SC QDAY DEWAYNE Stop: 01/09/25 08:59 Last Admin: 12/31/24 08:31 Dose: 40 mg Vancomycin/Sodium Chloride (Vancomycin/Ns 500 Mg Ivpb) 100 mls @ 120 mls/hr IV Q12H [facility]; Protocol Stop: 01/07/25 09:59 Last Admin: 12/31/24 10:45 Dose: 120 mls/hr Insulin Human Lispro (Insulin Lispro (Admelog) 1 Unit/0.01 Ml Unit) 0 unit SC AC [facility]; Protocol Stop: 01/25/25 07:29 Last Admin: 12/31/24 17:05 Dose: 3 unit Methocarbamol (Methocarbamol 500 Mg Tablet) 500 mg PO BID [facility] Stop: 01/29/25 08:59 Last Admin: 12/31/24 08:28 Dose: 500 mg Nitrofurantoin Macrocrystals (Nitrofurantoin Macro 100 Mg Capsule) 100 mg PO BID [facility] Stop: 01/05/25 13:14 Last Admin: 12/31/24 08:28 Dose: 100 mg Ondansetron HCl (Ondansetron Inj 2 Mg/Ml Inj 2 Ml) 4 mg IV Q6H PRN; Protocol PRN Reason: NAUSEA OR VOMITING Stop: 01/25/25 05:20 Oxycodone/Acetaminophen (Oxycodone/Apap 5/325 Tablet) 1 tab PO Q6HR PRN; Protocol PRN Reason: PAIN SCALE 4-10(Mod-Sev Stop: 01/03/25 08:32 Last Admin: 12/31/24 09:16 Dose: 1 tab Pantoprazole Sodium (Pantoprazole 40 Mg Tablet) 40 mg PO QDAY [facility] Stop: 01/25/25 08:59 Pharmacy Consult (Vancomycin Pharmacy To Dose 1 Each Each) 1 each IV QDAY PRN PRN Reason: PROTOCOL Stop: 01/26/25 09:44 Simethicone (Simethicone 80 Mg Chew) 80 mg PO QID PRN PRN Reason: GAS Stop: 01/29/25 15:37 Vitamin B Complex/Vit C/Folic Acid (Vit B12/Vit C/Fa (Nephrovite) Tablet) 1 tab PO QDAY [facility] Stop: 01/25/25 08:59 Last Admin: 12/31/24 08:28 Dose: 1 tab Discontinued Medications Acetaminophen (Acetaminophen 325 Mg Tablet) 1,000 mg PO Q6H PRN PRN Reason: Fever >100 Stop: 01/25/25 05:20 Hydrocodone Bitart/Acetaminophen (Hydrocodone/Apap 10/325 Tab) 1 tab PO X1 ONE Stop: 12/25/24 22:18 Last Admin: 12/26/24 01:15 Dose: 1 tab Hydrocodone Bitart/Acetaminophen (Hydrocodone/Apap 5/325 Tablet) 1 tab PO Q4H PRN PRN Reason: pain 4-6 Stop: 12/31/24 05:37 Last Admin: 12/28/24 20:04 Dose: 1 tab Diphenhydramine HCl (Diphenhydramine Elix 25 Mg/10 Ml Udc) 12.5 mg PO X1 ONE Stop: 12/26/24 14:51 Last Admin: 12/26/24 15:07 Dose: 12.5 mg Diphenhydramine HCl (Diphenhydramine 25 Mg Capsule) 25 mg PO X1 ONE Stop: 12/27/24 15:04 Last Admin: 12/27/24 15:34 Dose: 25 mg Heparin Sodium (Beef Lung) (Heparin Sod Lock Syr 100 Unit/Ml) 500 unit STFIELD X1 ONE Stop: 12/31/24 14:22 Last Admin: 12/31/24 14:26 Dose: 500 unit Hydromorphone HCl (Hydromorphone Inj 2 Mg/Ml Vial) 0.5 mg IVP Q3H PRN; Protocol PRN Reason: Pain 7-10 Stop: 12/31/24 05:25 Ceftriaxone Sodium 2 gm/ (Sodium Chloride) 50 mls @ 100 mls/hr IV X1 ONE Stop: 12/26/24 03:26 Last Infusion: 12/26/24 07:49 Dose: Infused Vancomycin HCl 2,000 mg/ (Sodium Chloride) 500 mls @ 150 mls/hr IV X1 ONE Stop: 12/26/24 07:30 Last Admin: 12/26/24 10:49 Dose: 150 mls/hr Doxycycline Hyclate 100 mg/ (Sodium Chloride) 100 mls @ 100 mls/hr IV BID [facility] Stop: 01/02/25 08:59 Last Admin: 12/27/24 10:04 Dose: Not Given Ceftriaxone Sodium 2 gm/ (Sodium Chloride) 50 mls @ 100 mls/hr IV QDAY [facility] Stop: 01/02/25 05:36 Last Infusion: 12/29/24 10:01 Dose: Infused Doxycycline Hyclate 100 mg/ (Sodium Chloride) 100 mls @ 100 mls/hr IV X1 ONE Stop: 12/26/24 06:59 Last Infusion: 12/26/24 09:44 Dose: Infused Magnesium Sulfate (Magnesium Sulfate Ivpb) 2 gm in 50 mls @ 25 mls/hr IV X1 ONE Stop: 12/26/24 07:43 Last Infusion: 12/26/24 10:36 Dose: Infused Vancomycin/Sodium Chloride (Vancomycin/Ns 1 Gm Ivpb) 200 mls @ 120 mls/hr IV BID@1000,2200 [facility]; Protocol Stop: 01/03/25 09:59 Last Admin: 12/27/24 16:51 Dose: Not Given Ceftriaxone Sodium 2 gm/ (Sodium Chloride) 50 mls @ 100 mls/hr IV X1 ONE Stop: 12/27/24 17:19 Last Admin: 12/27/24 17:00 Dose: 100 mls/hr Vancomycin/Sodium Chloride (Vancomycin/Ns 1 Gm Ivpb) 200 mls @ 120 mls/hr IV BID@1000,2200 [facility]; Protocol Stop: 01/03/25 17:29 Last Admin: 12/28/24 23:03 Dose: Not Given Magnesium Sulfate (Magnesium Sulfate Ivpb) 4 gm in 50 mls @ 12.5 mls/hr IV X1 ONE Stop: 12/28/24 13:37 Last Admin: 12/28/24 11:19 Dose: 12.5 mls/hr Vancomycin/Sodium Chloride (Vancomycin/Ns 750 Mg Ivpb) 750 mg in 150 mls @ 120 mls/hr IV BID@1000,2200 [facility]; Protocol Stop: 01/05/25 09:59 Last Admin: 12/30/24 22:29 Dose: Not Given Meropenem 1,000 mg/ Sodium (Chloride) 50 mls @ 100 mls/hr IV Q8HR [facility] Stop: 01/05/25 13:59 Magnesium Sulfate (Magnesium Sulfate Ivpb) 4 gm in 50 mls @ 12.5 mls/hr IV X1 ONE Stop: 12/30/24 13:34 Last Admin: 12/30/24 10:31 Dose: 12.5 mls/hr Insulin Human Lispro (Insulin Lispro (Admelog) 1 Unit/0.01 Ml Unit) 0 unit SC AC [facility]; Protocol Stop: 01/25/25 07:29 Last Admin: 12/29/24 07:55 Dose: 3 unit Lidocaine HCl (Lidocaine Inj Pf 1% 30 Ml Vial) 10 ml INFL X1 ONE Stop: 12/31/24 14:22 Last Admin: 12/31/24 14:26 Dose: 10 ml Oxycodone/Acetaminophen (Oxycodone/Apap 5/325 Tablet) 1 tab PO Q4H PRN PRN Reason: PAIN SCALE 4-6 (Moderate Stop: 12/31/24 05:20 Pantoprazole Sodium (Pantoprazole Inj 40 Mg Vial) 40 mg IVP QDAY [facility] Stop: 01/25/25 08:59 Last Admin: 12/31/24 08:30 Dose: 40 mg Silver Nitrate (Silver Nitrate 1 Appl Ea) 3 appl TOP X1 ONE Stop: 12/27/24 13:51 Last Admin: 12/27/24 15:37 Dose: Not Given Tramadol HCl (Tramadol Hcl 50 Mg Tablet) 50 mg PO Q6HR PRN PRN Reason: PAIN SCALE 4-6 (Moderate Stop: 12/31/24 05:20 Last Admin: 12/27/24 08:27 Dose: 50 mg Vancomycin/Sodium Chloride (Vancomycin In Ns 1 Gm/200 Ml Bag) 1 gm IV X1 ONE Stop: 12/27/24 16:52 Last Admin: 12/27/24 18:04 Dose: Not Given Assessment & Plan Plan Assessment and Plan: Summary: Ms. 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 Orthopedics and oncology were consulted. With progression of hospital course General Surgery was officially consulted, eventually had excisional debridement of sacral and left lateral lower extremity wounds performed on 12/27/24, infectious disease was consulted due to sacral osteomyelitis, initially orthopedics was consulted who recommended general surgery consult, urology consulted due to chronic indwelling Reid considering patient being catheter dependent. With the progression of hospital course patient also had PICC line placement due to 2 sets of positive blood cultures and cardiology was consulted for THOMAS to evaluate heart for possible vegetations and rule out bacterial endocarditis. #Coccygeal osteomyeltiis #Staph hominis bacteremia, on 2 consecutive blood cultures #Stage IV sacral ulcer #Severe PAD, s/p RLE BKA + LLE 3rd digit amputation Patient originally admitted for coccygeal osteomyelitis, general surgery was consulted eventually had excisional debridement of sacral ulcer and left lower extremity wounds on 12/27/2024. Patient had 2 sets of blood cultures positive for Staph hominis, initial set positive for 2/2, follow-up set positive for 1/2. Infectious diseases on board, patient had PICC line placed for IV antibiotics. CT abdomen pelvis 12/25/2024 shows Large soft tissue ulceration in the posterior lower back with osteomyelitis coccygeal segments. Cardiology consulted for THOMAS to further rule out endocarditis. Patient is currently on Macrobid p.o., IV vancomycin TTE 12/27/2024 shows LV size and function normal with an estimated EF of 55 to 60%. Diastolic dysfunction stage I. Normal RV size and function with normal RVSP of 25 mmHg. Mild TR. Moderate aortic valve sclerosis with possible mild stenosis. V-max is only 2.2-2.3 m/s mean gradient is 11 mmHg but valve area is 1.2 cm?. Mild MAC along with mild thickening of the mitral leaflets along with mild MR. Patient denies any kind of swallowing problems or any kind of esophageal interventions or previous surgeries. Patient denies any kind of gastric ulcers bleeding and any other hematemesis or hematochezia. Patient denies any issues with anesthesia previously. Patient explained all the risks, benefits and alternatives of THOMAS including the risk of perforation, bleeding, respiratory failure secondary to sedation, injury to teeth gums esophagus and stomach. Patient understands all risks and benefits and provided consent for the procedure. We will keep him n.p.o. overnight and plan for THOMAS in the morning. Plan: -Will schedule patient for THOMAS in a.m. -Will obtain consult from patient's family -Continue management per primary team -Infectious diseases consulted and following case #Catheter associated UTI #Chronic reid #Microscopic hematuria Ceftriaxone 2 g IV daily (12/25-12/29) Urine culture 12/27: ESBL E. coli Currently on p.o. nitrofurantoin #Hx of endometrial CA s/p hysterectomy + BSO in 2016, s/p radiation + chemotherapy 2016?2021 CT A/P showed 3.1 cm heterogeneously enhancing nodular mass adjacent to superior aspect of the urinary bladder, suspicious for neoplasm ? Oncology consulted, appreciate recommendations ? Recommended urology consult and cystoscopy with biopsy ? Urology consulted, appreciate recommendations ? States that currently not safe to undergo cystoscopy ? Follow-up urine cytology #Type 2 diabetes mellitus A1c 7.6%. Management per primary team, recommend strict glycemic control, blood sugar while inpatient in the range of 140-180. #Hyperlipidemia On home atorvastatin 40 mg p.o. daily #Normocytic anemia, secondary to #Iron deficiency Normocytic anemia Hb 9.4 MCV 89. Iron panel: Iron 23, TIBC 601, iron saturation 3%, unsaturated iron binding 578 recommend IV iron infusions, ferric gluconate for 5 days #Abdominal pain #Non-anion gap metabolic acidosis in setting of ileostomy, resolved Thank you for the consult and allowing to participate in the care of the patient. Cardiology will continue to follow. Case discussed with Attending Dr. Travis. Carrillo Florentino PGY1 Disclaimer: This note was dictated by speech recognition. Minor errors in thermoscrew operator may be present due to voice recognition software. Attending Provider Attestation/Addendum I have personally seen and examined the patient separately on the above date of service and discussed the plan of care with the resident. I reviewed the resident Dr. Carrillo Florentino consultation progress note and agree with the resident findings and plan in the note above and have also edited the documentation to reflect my findings and plan. A 64-year-old female with multiple comorbidities including PAD, status post BKA as well as left lower extremity third digit amputation, history of endometrial carcinoma status post surgery with radiation and chemotherapy,, Brachytherapy, chronic indwelling Reid with recurrent UTIs and history of coccygeal osteomyelitis with sacral stage IV ulcer, type 2 diabetes mellitus, hypertension, hyperlipidemia, anemia, history of ileostomy was admitted to the hospital for leakage of the urine around Reid catheter, dysuria possible UTI and eventually was found to have coccygeal osteomyelitis with stage IV sacral ulcer. General surgery and ID was consulted. Patient eventually and he was placed on PICC line with IV antibiotics but patient blood cultures were positive. Patient does have Staphylococcus hominis bacteremia 2 consecutive blood cultures and ID recommended a THOMAS to rule out endocarditis. Currently consulted for further evaluation of the same with a THOMAS Patient does not have any history of any CAD and denies any Stents or any previous surgeries or valve replacements. Patient otherwise states that she never followed up with a linen room worker.. Echo showed normal LV size and function and normal RV size and function with diastolic dysfunction stage I. There was moderate aortic valve stenosis with possible mild stenosis even though the V-max was 2.3 m/s her valve area was only 1.2 cm?. Mild TR and mild MAC. Based on the echo history patient is an appropriate candidate for THOMAS Patient denies any kind of swallowing problems or any kind of esophageal interventions or previous surgeries. Patient denies any kind of gastric ulcers bleeding and any other hematemesis or hematochezia. Patient denies any issues with anesthesia previously. Patient explained all the risks, benefits and alternatives of THOMAS including the risk of perforation, bleeding, respiratory failure secondary to sedation, injury to teeth gums esophagus and stomach. Patient understands all risks and benefits and provided consent for the procedure. Unfortunately THOMAS cannot be done over the weekend will plan to keep the patient n.p.o. Friday night and will plan to do it on Friday morning. Labs reviewed and showed that patient does have severe iron deficiency anemia with elevated TIBC and low iron as well as low saturation recommend to consider IV iron transfusions. Management of rest of the medical conditions as per primary team and other consultants. Thank you for the consult and allowing me to participate in the care of the patient. Cardiology will continue to follow. Jeovanny Travis M.D. Interventional Cardiology
[2024-12-31] MEDS: DiphenhydrAMINE 25 MG CAPSULE PO (20:37)
[2025-01-01] VITALS: BP 107/61; PULSE 71; RESP 17; TEMP 36.3; O2SAT 92
--- NOTE | 2025-01-01 03:54 | PC.NURSE ---
Pt is complaining of pain in her sacrum and asking for Percocet. Pt is on NPO diet. Per Dr. Guerra, okay to give med with a small sip of water.
[2025-01-01] MEDS: oxyCODONE/APAP 5/325 TABLET 1 TAB PO ×3 (03:59→21:06)
[2025-01-01 04:00] VITALS: BP 147/65; PULSE 81; RESP 17; TEMP 36.7; O2SAT 98
[2025-01-01 06:14] LABS: Basophils # (Auto) 0.1 Thou/mm3 (0.0-0.2); Basophils % (Auto) 1 % (0-2.5); Eosinophils # (Auto) 0.6 Thou/mm3 (0.0-0.5); Eosinophils % (Auto) 6 % (0-10); Hematocrit 27.3 % (36.0-46.0); Hemoglobin 8.9 g/dL (12.0-16.0); Immature Granulocytes % (Auto) 0 % (0-0); Immature Granulocytes Auto 0.04 Thou/mm3 (0.00-0.00); Lymphocytes # (Auto) 2.6 Thou/mm3 (1.0-4.8); Lymphocytes % (Auto) 27 % (10-50); Mean Corpuscular HGB Conc 32.6 g/dl (31.0-37.0); Mean Corpuscular Volume 89 fL (80-100); Monocytes # (Auto) 0.8 Thou/mm3 (0.0-0.8); Monocytes % (Auto) 9 % (0-12); Neutrophils # (Auto) 5.5 Thou/mm3 (1.8-7.7); Neutrophils % (Auto) 57 % (37-80); Nucleated Red Blood Cell % 0 /100 WBC (0); Platelet Count 427 Thou/mm3 (140-440); RDW Standard Deviation 42.1 fL (36.4-46.3); Red Blood Count 3.07 Miln/mm3 (4.00-5.20); White Blood Count 9.6 Thou/mm3 (3.6-11.0)
[2025-01-01 07:02] LABS: Alanine Aminotransferase < 7 U/L (10-49); Albumin, Serum 3.4 gm/dL (3.4-4.8); Albumin/Globulin Ratio 0.9 (1.2-2.2); Alkaline Phosphatase 83 U/L (46-116); Anion Gap 10 (7-16); Aspartate Amino Transferase 15 U/L (0-34); BUN/Creatinine Ratio 10 Ratio (12-20); Bilirubin,Total < 0.2 mg/dL (0.3-1.2); Blood Urea Nitrogen 7 mg/dL (9-23); Calcium (Corrected) 9.5 mg/dL (8.5-10.1); Carbon Dioxide 21.6 mMol/L (20.0-31.0); Chloride 103 mMol/L (98-107); Creatinine (Component) 0.7 mg/dL (0.6-1.3); Estimated Creatinine Clearance 69.2 mL/min (>60); Globulin 3.6 gm/dL (2.3-3.5); Glucose 208 mg/dL (74-106); Magnesium 1.7 mg/dL (1.6-2.6); Osmolality,Calculated 274 (275-295); Phosphorous 3.3 mg/dL (2.4-5.1); Sodium 135 mMol/L (136-145); eGFR > 60 See Note
[2025-01-01 08:00] VITALS: BP 148/59; PULSE 79; RESP 17; TEMP 36.4; O2SAT 98
[2025-01-01] MEDS: VIT B12/Vit C/FA (Nephrovite) TABLET 1 TAB PO (09:45)
[2025-01-01] MEDS: methocarbamoL 500 MG TABLET PO ×2 (09:45→21:05)
[2025-01-01] MEDS: NITROFURANTOIN MACRO 100 MG CAPSULE PO ×2 (09:45→21:06)
[2025-01-01] MEDS: ENOXAPARIN SOD INJ 40 MG/0.4 ML SYRINGE SC (09:45)
[2025-01-01] MEDS: Magnesium Sulfate 4 GM Ivpb 4 GM/50 ML BAG IV (09:46)
--- NOTE | 2025-01-01 09:46 | ESPR_ITS ---
Documentation for date of: 01/01/25 Subjective Subjective Interval history: Patient seen and examined at bedside. Patient currently denies any chest pain, shortness of breath, no overnight fevers noted. Patient is currently on antibiotic regimen. Will schedule patient for recurrence esophageal echocardiogram Friday. Exam Vital Signs Temp Pulse Resp BP Pulse Ox O2 Del Method 97.5 F 79 17 148/59 H 98 Room Air 01/01/25 08:00 01/01/25 08:00 01/01/25 08:00 01/01/25 08:00 01/01/25 08:00 01/01/25 08:00 Narrative Exam General: AOx3, laying comfortably on bed, able to speak full sentences HEENT: NC/AT, mucous membranes moist, bilateral sclera anicteric Cardiovascular: regular rate and rhythm, S1/S2 present, no murmurs appreciated Pulmonary: clear to auscultation bilaterally, no rales/rhonchi/wheezes Abdominal: epigastric abdominal pain, ileostomy noted and functional with stool, soft, non-tender, non-distended Musculoskeletal: RLE s/p AKA, LLE s/p 3rd digit amputation Skin: stage 4 sacral ulcer and LLE leions now bandaged and s/p I&D Neuro: CN II-XII intact, no focal deficits Objective Labs 01/02/25 04:51 01/02/25 04:51 Labs: Laboratory Results - last 24 hr 01/01/25 04:48 WBC 9.6 RBC 3.07 L Hgb 8.9 L Hct 27.3 L MCV 89 MCH 29.0 MCHC 32.6 RDW Std Deviation 42.1 Plt Count 427 D Neut % (Auto) 57 Lymph % (Auto) 27 Benzie % (Auto) 9 Eos % (Auto) 6 Baso % (Auto) 1 Neut # (Auto) 5.5 Lymph # (Auto) 2.6 Benzie # (Auto) 0.8 Eos # (Auto) 0.6 H Baso # (Auto) 0.1 Immature Gran # (Auto) 0.04 H Absolute Nucleated RBC 0.00 Immature Gran % 0 Nucleated RBC % 0 Sodium 135 L Potassium 4.0 Chloride 103 Carbon Dioxide 21.6 Anion Gap 10 BUN 7 L Creatinine 0.7 Estim Creat Clear Calc 69.2 eGFR > 60 BUN/Creatinine Ratio 10 L Glucose 208 H D Calculated Osmolality 274 L Calcium 9.0 Corrected Calcium 9.5 Phosphorus 3.3 Magnesium 1.7 Total Bilirubin < 0.2 L AST 15 ALT < 7 L Alkaline Phosphatase 83 Total Protein 7.0 Albumin 3.4 Globulin 3.6 H Albumin/Globulin Ratio 0.9 L Quality Measures Quality Measures none Advance care planning discussed with:: patient Assessment & Plan Assessment Current Active Medications: Generic Name Dose Route Start Last Admin Trade Name Freq PRN Reason Stop Dose Admin Acetaminophen 1,000 mg 12/27/24 09:03 Acetaminophen 500 Mg Tablet PO 01/25/25 05:20 Q6H PRN Fever >100 Atorvastatin Calcium 40 mg 12/30/24 21:00 12/31/24 20:40 Atorvastatin Calcium 20 Mg Tablet PO 01/29/25 20:59 Not Given HS DEWAYNE Calamine 0 ml 12/28/24 14:44 Calamine Lotion 120 Ml Btl TOP 01/27/25 14:43 UD PRN ITCHING Dextrose 50 ml 12/26/24 05:44 Dextrose 50%-Water Inj 50 Ml Syringe IV 01/25/25 05:43 Q15MIN PRN BG <50 OR BG <70 & pt unresponsive Diphenhydramine HCl 25 mg 12/27/24 23:40 12/31/24 20:37 Diphenhydramine 25 Mg Capsule PO 01/26/25 23:39 25 mg HS DEWAYNE Administration Enoxaparin Sodium 40 mg 12/26/24 09:00 12/31/24 08:31 Enoxaparin Sod Inj 40 Mg/0.4 Ml Syringe SC 01/09/25 08:59 40 mg QDAY DEWAYNE Administration Vancomycin/Sodium Chloride 100 mls @ 120 mls/hr 12/31/24 10:00 12/31/24 22:23 Vancomycin/Ns 500 Mg Ivpb IV 01/07/25 09:59 120 mls/hr Q12H DEWAYNE Administration Protocol Magnesium Sulfate 4 gm in 50 mls @ 12.5 mls/hr 01/01/25 09:02 Magnesium Sulfate Ivpb IV 01/01/25 13:01 X1 ONE Insulin Human Lispro 0 unit 12/29/24 11:25 01/01/25 08:03 Insulin Lispro (Admelog) 1 Unit/0.01 Ml Unit SC 01/25/25 07:29 Not Given AC DEWAYNE Protocol Methocarbamol 500 mg 12/30/24 09:00 12/31/24 20:37 Methocarbamol 500 Mg Tablet PO 01/29/25 08:59 500 mg BID DEWAYNE Administration Nitrofurantoin Macrocrystals 100 mg 12/29/24 13:15 12/31/24 20:37 Nitrofurantoin Macro 100 Mg Capsule PO 01/05/25 13:14 100 mg BID DEWAYNE Administration Ondansetron HCl 4 mg 12/26/24 05:21 Ondansetron Inj 2 Mg/Ml Inj 2 Ml IV 01/25/25 05:20 Q6H PRN NAUSEA OR VOMITING Protocol Oxycodone/Acetaminophen 1 tab 12/29/24 08:33 01/01/25 03:59 Oxycodone/Apap 5/325 Tablet PO 01/03/25 08:32 1 tab Q6HR PRN Administration PAIN SCALE 4-10(Mod-Sev Protocol Pantoprazole Sodium 40 mg 01/01/25 09:00 Pantoprazole 40 Mg Tablet PO 01/25/25 08:59 QDAY [facility] Pharmacy Consult 1 each 12/27/24 09:45 Vancomycin Pharmacy To Dose 1 Each Each IV 01/26/25 09:44 QDAY PRN PROTOCOL Simethicone 80 mg 12/30/24 15:38 Simethicone 80 Mg Chew PO 01/29/25 15:37 QID PRN GAS Vitamin B Complex/Vit C/Folic Acid 1 tab 12/26/24 09:00 12/31/24 08:28 Vit B12/Vit C/Fa (Nephrovite) Tablet PO 01/25/25 08:59 1 tab QDAY DEWAYNE Administration Plan Assessment and Plan: Summary: Ms. 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 Orthopedics and oncology were consulted. With progression of hospital course General Surgery was officially consulted, eventually had excisional debridement of sacral and left lateral lower extremity wounds performed on 12/27/24, infectious disease was consulted due to sacral osteomyelitis, initially orthopedics was consulted who recommended general surgery consult, urology consulted due to chronic indwelling Reid considering patient being catheter dependent. With the progression of hospital course patient also had PICC line placement due to 2 sets of positive blood cultures and cardiology was consulted for THOMAS to evaluate heart for possible vegetations and rule out bacterial endocarditis. #Coccygeal osteomyeltiis #Staph hominis bacteremia, on 2 consecutive blood cultures #Stage IV sacral ulcer #Severe PAD, s/p RLE BKA + LLE 3rd digit amputation Patient originally admitted for coccygeal osteomyelitis, general surgery was consulted eventually had excisional debridement of sacral ulcer and left lower extremity wounds on 12/27/2024. Patient had 2 sets of blood cultures positive for Staph hominis, initial set positive for 2/2, follow-up set positive for 1/2. Infectious diseases on board, patient had PICC line placed for IV antibiotics. CT abdomen pelvis 12/25/2024 shows Large soft tissue ulceration in the posterior lower back with osteomyelitis coccygeal segments. Cardiology consulted for THOMAS to further rule out endocarditis. Patient is currently on Macrobid p.o., IV vancomycin. Patient does not have any history of any CAD and denies any Stents or any previous surgeries or valve replacements. Patient otherwise states that she never followed up with a bologna maker. TTE 12/27/2024 shows LV size and function normal with an estimated EF of 55 to 60%. Diastolic dysfunction stage I. Normal RV size and function with normal RVSP of 25 mmHg. Mild TR. Moderate aortic valve sclerosis with possible mild stenosis. V-max is only 2.2- 2.3 m/s mean gradient is 11 mmHg but valve area is 1.2 cm?. Mild MAC along with mild thickening of the mitral leaflets along with mild MR. Patient denies any kind of swallowing problems or any kind of esophageal interventions or previous surgeries. Patient denies any kind of gastric ulcers bleeding and any other hematemesis or hematochezia. Patient denies any issues with anesthesia previously. Patient explained all the risks, benefits and alternatives of THOMAS including the risk of perforation, bleeding, respiratory failure secondary to sedation, injury to teeth gums esophagus and stomach. Patient understands all risks and benefits and provided consent for the procedure. We will keep her n.p.o. overnight on Friday and plan for THOMAS in the morning. Plan: -Will schedule patient for THOMAS on Friday -Will obtain consult from patient's family -Continue management per primary team -Infectious diseases consulted and following case #Catheter associated UTI #Chronic reid #Microscopic hematuria Ceftriaxone 2 g IV daily (12/25-12/29) Urine culture 12/27: ESBL E. coli Currently on p.o. nitrofurantoin #Hx of endometrial CA s/p hysterectomy + BSO in 2016, s/p radiation + chemotherapy 2016?2021 CT A/P showed 3.1 cm heterogeneously enhancing nodular mass adjacent to superior aspect of the urinary bladder, suspicious for neoplasm ? Oncology consulted, appreciate recommendations ? Recommended urology consult and cystoscopy with biopsy ? Urology consulted, appreciate recommendations ? States that currently not safe to undergo cystoscopy ? Follow-up urine cytology #Type 2 diabetes mellitus A1c 7.6%. Management per primary team, recommend strict glycemic control, blood sugar while inpatient in the range of 140-180. #Hyperlipidemia On home atorvastatin 40 mg p.o. daily #Normocytic anemia, secondary to #Iron deficiency Normocytic anemia Hb 9.4 MCV 89. Iron panel: Iron 23, TIBC 601, iron saturation 3%, unsaturated iron binding 578 recommend IV iron infusions, ferric gluconate for 5 days #Abdominal pain #Non-anion gap metabolic acidosis in setting of ileostomy, resolved Thank you for the consult and allowing to participate in the care of the patient. Cardiology will continue to follow. Case discussed with Attending Dr. Travis. Carrillo Florentino PGY1 Attending Provider Attestation/Addendum I have personally seen and examined the patient separately on the above date of service and discussed the plan of care with the resident. I reviewed the resident Dr. Carrillo Florentino consultation progress note and agree with the resident findings and plan in the note above and have also edited the documentation to reflect my findings and plan. Jeovanny Travis M.D. Interventional Cardiology
[2025-01-01] MEDS: PANTOPRAZOLE 40 MG TABLET PO (09:47)
[2025-01-01] MEDS: VANCOMYCIN/NS 500 MG IVPB 100 ML 120 MG IV ×2 (10:16→22:27)
[2025-01-01 12:00] VITALS: BP 149/77; PULSE 86; RESP 28; TEMP 37.2; O2SAT 98
[2025-01-01] MEDS: INSULIN LISPRO (AdmeLOG) 1 UNIT/0.01 ML UNIT SC (12:07)
--- NOTE | 2025-01-01 12:20 | PD.RESPRO ---
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 Presented on 12/25 for recurrent leakage around Reid catheter, dysuria, and foul-smelling urine x24 hours and admitted for work-up and management of chronic Reid catheter associated UTI and coccygeal osteomyelitis (stage IV sacral ulcer). 12/26: Seen and examined at bedside in ED and on medical floor. No acute overnight events reported. Denies fever, chills, nausea, vomiting, shortness of breath, or chest pain. States that she has a spray gun repairer helper who sees patient after being discharged from SNF approximately 3 weeks ago. Patient is satisfied with care but heike evaluation, noted to have dry and gangrenous lesions on heel and lateral aspect of the left lower extremity: So we will look into APS consult at this time and director of social work notified. Will continue ceftriaxone and doxycycline follow-up blood and urine cultures. Wound care order placed, orthopedic surgery and infectious disease consulted for osteomyelitis, and oncology consulted for bladder mass seen on imaging. Will follow-up on recommendations. 12/27: Seen and examined at bedside on medical floors. No acute overnight events reported. Denies fever, chills, N/V, SOB, or chest pain. Orthopedic surgery consulted and deferred possible LLE procedure to general surgery, who stated that given R AKA is still healing and will not pursue definitive surgical treatment of LLE. However, general surgery was able to debride sacral decubitus ulcer and packed, LLE wounds also debrided. Oncology also consulted given bladder mass seen on CT and recommended urology consult for cystoscopy with biopsy. Thus, consult placed and urologist contacted regarding case and plans to see patient tomorrow after urine cytology obtained. Per ID, given positive 2/2 blood cultures with GPC, will obtain another set of blood cultures and doxycycline DC'd and switched to vancomycin. Echo also ordered. Patient's sister, Mayra, at bedside and updated regarding current plans and management. 12/28: Seen and examined at bedside on medical floors. No acute overnight events reported. No fevers overnight and WBC remained stable. Second round of blood cultures noted to be positive in 1 of 2 bottles for GPC. Will send second set of blood cultures tomorrow. Echo obtained and showed no signs of vegetations. Urology evaluated patient and deemed that given GPC bacteremia that is not safe to undergo cystoscopy. MRSA nares positive and urine culture growing GNR, ID to follow. 12/29: Seen and examined at bedside on medical floors. No acute overnight events reported. No fevers overnight and WBC continues to remain stable. Patient endorses abdominal pain but is chronic and states that she has experienced this at home. Will restart patient's home methocarbamol. 12/30: Seen and examined at bedside on medical floors. No acute overnight events reported. No fevers overnight and WBC stable and within normal limits. Continues to endorse abdominal pain despite resuming methocarbamol and will start on simethicone to see if it helps relieve patient symptoms. Spoke to patient's sister regarding possible PICC line placement as she is POA and patient prefers to have sister around to make medical decisions. Plan to have sister come tomorrow at 10 AM and will have discussion then. 12/31: Seen and examined at bedside on medical floors. No acute overnight events reported. Spoke to patient and sister at bedside regarding PICC line placement as well as THOMAS that was recommended by infectious disease due to blood cultures resulting the same species. Risks, benefits, and options discussed at length and both were in agreement for PICC line placement as well as THOMAS. 01/01: Seen and examined at bedside on medical floors. No acute overnight events reported. She continues to endorse abdominal pain that has not been relieved by simethicone or methocarbamol. Will consult dietitian to see if we can optimize her diet. Otherwise, status post placement of PICC line and tolerated well and plan for THOMAS on Friday. Exam Vital Signs Temp Pulse Resp BP Pulse Ox O2 Del Method 97.5 F 79 17 148/59 H 98 Room Air 01/01/25 08:00 01/01/25 08:00 01/01/25 08:00 01/01/25 08:00 01/01/25 08:00 01/01/25 08:00 Narrative Exam General: AOx3, laying comfortably on bed, able to speak full sentences HEENT: NC/AT, mucous membranes moist, bilateral sclera anicteric Cardiovascular: regular rate and rhythm, S1/S2 present, no murmurs appreciated Pulmonary: clear to auscultation bilaterally, no rales/rhonchi/wheezes Abdominal: epigastric abdominal pain, ileostomy noted and functional with stool, soft, non-tender, non-distended Musculoskeletal: RLE s/p AKA, LLE s/p 3rd digit amputation Skin: stage 4 sacral ulcer and LLE leions now bandaged and s/p I&D Neuro: CN II-XII intact, no focal deficits Objective Labs 01/01/25 04:48 01/01/25 04:48 Labs: Laboratory Results - last 24 hr 01/01/25 04:48 WBC 9.6 RBC 3.07 L Hgb 8.9 L Hct 27.3 L MCV 89 MCH 29.0 MCHC 32.6 RDW Std Deviation 42.1 Plt Count 427 D Neut % (Auto) 57 Lymph % (Auto) 27 Leslie % (Auto) 9 Eos % (Auto) 6 Baso % (Auto) 1 Neut # (Auto) 5.5 Lymph # (Auto) 2.6 Leslie # (Auto) 0.8 Eos # (Auto) 0.6 H Baso # (Auto) 0.1 Immature Gran # (Auto) 0.04 H Absolute Nucleated RBC 0.00 Immature Gran % 0 Nucleated RBC % 0 Sodium 135 L Potassium 4.0 Chloride 103 Carbon Dioxide 21.6 Anion Gap 10 BUN 7 L Creatinine 0.7 Estim Creat Clear Calc 69.2 eGFR > 60 BUN/Creatinine Ratio 10 L Glucose 208 H D Calculated Osmolality 274 L Calcium 9.0 Corrected Calcium 9.5 Phosphorus 3.3 Magnesium 1.7 Total Bilirubin < 0.2 L AST 15 ALT < 7 L Alkaline Phosphatase 83 Total Protein 7.0 Albumin 3.4 Globulin 3.6 H Albumin/Globulin Ratio 0.9 L Quality Measures Quality Measures none Advance care planning discussed with:: patient Assessment & Plan Assessment Current Active Medications: Generic Name Dose Route Start Last Admin Trade Name Freq PRN Reason Stop Dose Admin Acetaminophen 1,000 mg 12/27/24 09:03 Acetaminophen 500 Mg Tablet PO 01/25/25 05:20 Q6H PRN Fever >100 Atorvastatin Calcium 40 mg 12/30/24 21:00 12/31/24 20:40 Atorvastatin Calcium 20 Mg Tablet PO 01/29/25 20:59 Not Given HS DEWAYNE Calamine 0 ml 12/28/24 14:44 Calamine Lotion 120 Ml Btl TOP 01/27/25 14:43 UD PRN ITCHING Dextrose 50 ml 12/26/24 05:44 Dextrose 50%-Water Inj 50 Ml Syringe IV 01/25/25 05:43 Q15MIN PRN BG <50 OR BG <70 & pt unresponsive Diphenhydramine HCl 25 mg 12/27/24 23:40 12/31/24 20:37 Diphenhydramine 25 Mg Capsule PO 01/26/25 23:39 25 mg HS DEWAYNE Administration Enoxaparin Sodium 40 mg 12/26/24 09:00 01/01/25 09:45 Enoxaparin Sod Inj 40 Mg/0.4 Ml Syringe SC 01/09/25 08:59 40 mg QDAY DEWAYNE Administration Vancomycin/Sodium Chloride 100 mls @ 120 mls/hr 12/31/24 10:00 01/01/25 10:16 Vancomycin/Ns 500 Mg Ivpb IV 01/07/25 09:59 120 mls/hr Q12H DEWAYNE Administration Protocol Magnesium Sulfate 4 gm in 50 mls @ 12.5 mls/hr 01/01/25 09:02 01/01/25 09:46 Magnesium Sulfate Ivpb IV 01/01/25 13:01 12.5 mls/hr X1 ONE Administration Insulin Human Lispro 0 unit 12/29/24 11:25 01/01/25 12:07 Insulin Lispro (Admelog) 1 Unit/0.01 Ml Unit SC 01/25/25 07:29 4 unit AC DEWAYNE Administration Protocol Methocarbamol 500 mg 12/30/24 09:00 01/01/25 09:45 Methocarbamol 500 Mg Tablet PO 01/29/25 08:59 500 mg BID DEWAYNE Administration Nitrofurantoin Macrocrystals 100 mg 12/29/24 13:15 01/01/25 09:45 Nitrofurantoin Macro 100 Mg Capsule PO 01/05/25 13:14 100 mg BID DEWAYNE Administration Ondansetron HCl 4 mg 12/26/24 05:21 Ondansetron Inj 2 Mg/Ml Inj 2 Ml IV 01/25/25 05:20 Q6H PRN NAUSEA OR VOMITING Protocol Oxycodone/Acetaminophen 1 tab 12/29/24 08:33 01/01/25 12:07 Oxycodone/Apap 5/325 Tablet PO 01/03/25 08:32 1 tab Q6HR PRN Administration PAIN SCALE 4-10(Mod-Sev Protocol Pantoprazole Sodium 40 mg 01/01/25 09:00 01/01/25 09:47 Pantoprazole 40 Mg Tablet PO 01/25/25 08:59 40 mg QDAY [facility] Administration Pharmacy Consult 1 each 12/27/24 09:45 Vancomycin Pharmacy To Dose 1 Each Each IV 01/26/25 09:44 QDAY PRN PROTOCOL Simethicone 80 mg 12/30/24 15:38 Simethicone 80 Mg Chew PO 01/29/25 15:37 QID PRN GAS Vitamin B Complex/Vit C/Folic Acid 1 tab 12/26/24 09:00 01/01/25 09:45 Vit B12/Vit C/Fa (Nephrovite) Tablet PO 01/25/25 08:59 1 tab QDAY [facility] Administration Plan Ni Schmid is a 64-y/o female with a PMHx of endometrial carcinoma diagnosed in 2016 s/p robotic hysterectomy and bilateral salpingo-oophorectomy at [facility] in 2016, s/p brachytherapy and external beam radiation for recurrent vaginal cuff tumor in 2018 and chemotherapy until 2021 for the same, 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 Presented on 12/25 for recurrent leakage around Reid catheter, dysuria, and foul-smelling urine x24 hours and admitted for work-up and management of chronic Reid catheter associated UTI and coccygeal osteomyelitis (stage IV sacral ulcer). #Coccygeal osteomyeltiis #Staph hominis bacteremia #Stage IV sacral ulcer #Severe PAD, s/p RLE BKA + LLE 3rd digit amputation Echo on 12/27 without signs of vegetations. EF 55 to 60% with normal LV size and function, stage I diastolic dysfunction. Blood cultures 12/25: 2/2 bottles positive for Staph hominis Blood cultures 12/27: 1/2 bottles positive for Staph hominis Blood cultures 12/29: NGTD S/p debridement of sacral ulcer and LLE wounds on 12/27 ? Vancomycin IV BID (12/27-) ? Status-post PICC line placement 12/31 ? THOMAS on friday ? Continue vancomycin until THOMAS and if negative ? if THOMAS (-) -> ertapenem + vancomycin -> doxycycline for home ? if THOMAS (+) -> longer course of IV vancomycin ? Referral to wound care ? Vitamin B complex, vitamin C, folic acid tablets PO daily #Catheter associated UTI #Chronic reid #Microscopic hematuria Ceftriaxone 2 g IV daily (12/25-12/29) Urine culture 12/27: ESBL E. coli ? Nitrofurantoin 100 mg p.o. twice daily (12/29-) #Hx of endometrial CA s/p hysterectomy + BSO in 2016, s/p radiation + chemotherapy 2016?2021 CT A/P showed 3.1 cm heterogeneously enhancing nodular mass adjacent to superior aspect of the urinary bladder, suspicious for neoplasm ? Oncology consulted, appreciate recommendations ? Recommended urology consult and cystoscopy with biopsy ? Urology consulted, appreciate recommendations ? States that currently not safe to undergo cystoscopy ? Follow-up urine cytology #Type 2 diabetes mellitus A1c 7.6%. ? SSI with Accu-Checks ? Increased SSI to step 3 #Hyperlipidemia ? Home Atorvastatin 40 mg p.o. daily #Normocytic anemia, secondary to #Iron deficiency Normocytic anemia Hb 9.4 MCV 89. Iron panel: Iron 23, TIBC 601, iron saturation 3%, unsaturated iron binding 578 #Abdominal pain ? Home methocarbamol 500 mg p.o. twice daily ? Simethicone 80 mg PO QID PRN ? Registered dietitian referral ? Low fiber diet #Non-anion gap metabolic acidosis in setting of ileostomy, resolved Antibiotics: Vancomycin 12/27- Macrobid 12/29- Ceftriaxone 12/25-12/29 Doxycycline 12/26-12/27 Hospital management: Disposition: osteomyelitis, Staph hominis bacteremia; ID following Fluids: none Diet: carbohydrate consistent low Lines: PIV DVT prophylaxis: enoxaparin GI prophylaxis: pantoprazole CODE STATUS: limited code, no chest compressions ----- Plan discussed with attending physician Dr. Stone and senior resident physician Dr. Magalis Callejas MD PGY-1 Internal Medicine Attending Provider Attestation/Addendum I have examined the patient, reviewed labs and imaging findings, discussed the case with the resident(s), and reviewed entered orders. I agree with the plan of care as outlined in this note, with these additional summaries/recommendations: Currently pending THOMAS. Patient otherwise complaining of some abdominal/chest pain, given pain meds which improved the issue. Unlikely be cardiac issue. Continue to monitor closely and continue on IV antibiotics for now for osteomyelitis and bacteremia. Pepe Stone MD
--- NOTE | 2025-01-01 14:47 | PC.SS ---
Rounding: Pending THOMAS on Wednesday 01/03
--- NOTE | 2025-01-01 14:58 | PC.RT ---
SS spoke to Isabel at [facility] to verify if she can accept pt with ABX. Per Isabel pt only has 30 days left of Medicare Days for SNF. Isabel inquired on which IV ABX course she will be DC on. SS spoke to Dr. Blancas who stated pt is pending THOMAS Friday and that will determine the course of treatment they decide to go with but that pt will need 6 weeks of IV ABX. SS relayed information to Isabel at [facility]. Shakir stated she will need to know course and she needs to check bed availability.
[2025-01-01 16:00] VITALS: BP 154/71; PULSE 84; RESP 18; TEMP 36.3; O2SAT 98
[2025-01-01 20:00] VITALS: BP 144/68; PULSE 85; RESP 20; TEMP 36.4; O2SAT 99
[2025-01-01] MEDS: DiphenhydrAMINE 25 MG CAPSULE PO (21:06)
[2025-01-01 21:43] LABS: Vancomycin,Trough 18.1 mcg/mL (5.0-10.0)
[2025-01-02] VITALS: BP 149/68; PULSE 83; RESP 20; TEMP 36.3; O2SAT 98
[2025-01-02] MEDS: oxyCODONE/APAP 5/325 TABLET 1 TAB PO ×2 (03:23→20:42)
[2025-01-02 04:00] VITALS: BP 152/71; PULSE 87; RESP 18; TEMP 36.7; O2SAT 99
[2025-01-02 05:44] LABS: Basophils % (Auto) 0 % (0-2.5); Eosinophils # (Auto) 0.6 Thou/mm3 (0.0-0.5); Eosinophils % (Auto) 6 % (0-10); Hematocrit 23.3 % (36.0-46.0); Immature Granulocytes % (Auto) 0 % (0-0); Immature Granulocytes Auto 0.03 Thou/mm3 (0.00-0.00); Lymphocytes # (Auto) 2.6 Thou/mm3 (1.0-4.8); Lymphocytes % (Auto) 24 % (10-50); Mean Corpuscular HGB Conc 32.6 g/dl (31.0-37.0); Mean Corpuscular Hemoglobin 29.3 pg (25.0-35.0); Mean Corpuscular Volume 90 fL (80-100); Monocytes # (Auto) 0.9 Thou/mm3 (0.0-0.8); Monocytes % (Auto) 8 % (0-12); Neutrophils # (Auto) 6.7 Thou/mm3 (1.8-7.7); Neutrophils % (Auto) 62 % (37-80); Nucleated Red Blood Cell % 0 /100 WBC (0); Platelet Count 416 Thou/mm3 (140-440); Red Blood Count 2.59 Miln/mm3 (4.00-5.20); White Blood Count 10.8 Thou/mm3 (3.6-11.0)
[2025-01-02 05:45] LABS: Hemoglobin 7.6 g/dL (12.0-16.0)
[2025-01-02 06:08] LABS: Alanine Aminotransferase < 7 U/L (10-49); Albumin, Serum 3.3 gm/dL (3.4-4.8); Alkaline Phosphatase 75 U/L (46-116); Anion Gap 9 (7-16); Aspartate Amino Transferase 12 U/L (0-34); BUN/Creatinine Ratio 10 Ratio (12-20); Bilirubin,Total 0.2 mg/dL (0.3-1.2); Blood Urea Nitrogen 6 mg/dL (9-23); Calcium 8.6 mg/dL (8.3-10.6); Calcium (Corrected) 9.2 mg/dL (8.5-10.1); Carbon Dioxide 22.6 mMol/L (20.0-31.0); Chloride 103 mMol/L (98-107); Creatinine (Component) 0.6 mg/dL (0.6-1.3); Estimated Creatinine Clearance 80.7 mL/min (>60); Globulin 3.3 gm/dL (2.3-3.5); Glucose 179 mg/dL (74-106); Magnesium 2.1 mg/dL (1.6-2.6); Osmolality,Calculated 271 (275-295); Phosphorous 3.3 mg/dL (2.4-5.1); Potassium 3.9 mMol/L (3.4-5.1); Sodium 135 mMol/L (136-145); Total Protein 6.6 gm/dL (5.7-8.2); eGFR > 60 See Note
[2025-01-02] MEDS: INSULIN LISPRO (AdmeLOG) 1 UNIT/0.01 ML UNIT SC ×2 (07:48→11:58)
[2025-01-02 08:00] VITALS: BP 152/71; PULSE 84; PULSE 87; RESP 18; TEMP 36.7; O2SAT 99
[2025-01-02] MEDS: methocarbamoL 500 MG TABLET PO ×2 (08:54→20:42)
[2025-01-02] MEDS: VIT B12/Vit C/FA (Nephrovite) TABLET 1 TAB PO (08:54)
[2025-01-02] MEDS: ENOXAPARIN SOD INJ 40 MG/0.4 ML SYRINGE SC (08:54)
[2025-01-02] MEDS: PANTOPRAZOLE 40 MG TABLET PO (08:55)
[2025-01-02] MEDS: NITROFURANTOIN MACRO 100 MG CAPSULE PO ×2 (08:55→20:43)
--- NOTE | 2025-01-02 09:28 | PD.RESPRO ---
Documentation for date of: 01/02/25 Subjective Subjective Interval history: Patient seen and examined at bedside. Patient currently denies any chest pain, shortness of breath, no overnight fevers noted. Patient is currently on antibiotic regimen. Will schedule patient for transesophageal echocardiogram tomorrow morning. Exam Vital Signs Temp Pulse Resp BP Pulse Ox O2 Del Method 98.1 F 87 18 152/71 H 99 Room Air 01/02/25 04:00 01/02/25 04:00 01/02/25 04:00 01/02/25 04:00 01/02/25 04:00 01/02/25 04:00 Narrative Exam General: AOx3, laying comfortably on bed, able to speak full sentences HEENT: NC/AT, mucous membranes moist, bilateral sclera anicteric Cardiovascular: regular rate and rhythm, S1/S2 present, no murmurs appreciated Pulmonary: clear to auscultation bilaterally, no rales/rhonchi/wheezes Abdominal: epigastric abdominal pain, ileostomy noted and functional with stool, soft, non-tender, non-distended Musculoskeletal: RLE s/p AKA, LLE s/p 3rd digit amputation Skin: stage 4 sacral ulcer and LLE leions now bandaged and s/p I&D Neuro: CN II-XII intact, no focal deficits Objective Labs 01/03/25 00:24 01/02/25 04:51 Labs: Laboratory Results - last 24 hr 01/01/25 01/02/25 21:01 04:51 WBC 10.8 RBC 2.59 L Hgb 7.6 L Hct 23.3 L MCV 90 MCH 29.3 MCHC 32.6 RDW Std Deviation 43.0 Plt Count 416 Neut % (Auto) 62 Lymph % (Auto) 24 [place] % (Auto) 8 Eos % (Auto) 6 Baso % (Auto) 0 Neut # (Auto) 6.7 Lymph # (Auto) 2.6 [place] # (Auto) 0.9 H Eos # (Auto) 0.6 H Baso # (Auto) 0.0 Immature Gran # (Auto) 0.03 H Absolute Nucleated RBC 0.00 Immature Gran % 0 Nucleated RBC % 0 Sodium 135 L Potassium 3.9 Chloride 103 Carbon Dioxide 22.6 Anion Gap 9 BUN 6 L Creatinine 0.6 Estim Creat Clear Calc 80.7 eGFR > 60 BUN/Creatinine Ratio 10 L Glucose 179 H Calculated Osmolality 271 L Calcium 8.6 Corrected Calcium 9.2 Phosphorus 3.3 Magnesium 2.1 Total Bilirubin 0.2 L AST 12 ALT < 7 L Alkaline Phosphatase 75 Total Protein 6.6 Albumin 3.3 L Globulin 3.3 Albumin/Globulin Ratio 1.0 L Vancomycin Trough 18.1 H Quality Measures Quality Measures none Advance care planning discussed with:: patient Assessment & Plan Assessment Current Active Medications: Generic Name Dose Route Start Last Admin Trade Name Freq PRN Reason Stop Dose Admin Acetaminophen 1,000 mg 12/27/24 09:03 Acetaminophen 500 Mg Tablet PO 01/25/25 05:20 Q6H PRN Fever >100 Atorvastatin Calcium 40 mg 12/30/24 21:00 01/01/25 21:06 Atorvastatin Calcium 20 Mg Tablet PO 01/29/25 20:59 Not Given HS DEWAYNE Calamine 0 ml 12/28/24 14:44 Calamine Lotion 120 Ml Btl TOP 01/27/25 14:43 UD PRN ITCHING Dextrose 50 ml 12/26/24 05:44 Dextrose 50%-Water Inj 50 Ml Syringe IV 01/25/25 05:43 Q15MIN PRN BG <50 OR BG <70 & pt unresponsive Diphenhydramine HCl 25 mg 12/27/24 23:40 01/01/25 21:06 Diphenhydramine 25 Mg Capsule PO 01/26/25 23:39 25 mg HS DEWAYNE Administration Enoxaparin Sodium 40 mg 12/26/24 09:00 01/02/25 08:54 Enoxaparin Sod Inj 40 Mg/0.4 Ml Syringe SC 01/09/25 08:59 40 mg QDAY DEWAYNE Administration Vancomycin/Sodium Chloride 100 mls @ 120 mls/hr 12/31/24 10:00 01/01/25 23:17 Vancomycin/Ns 500 Mg Ivpb IV 01/07/25 09:59 Infused Q12H DEWAYNE Infusion Protocol Insulin Human Lispro 0 unit 12/29/24 11:25 01/02/25 07:48 Insulin Lispro (Admelog) 1 Unit/0.01 Ml Unit SC 01/25/25 07:29 3 unit AC DEWAYNE Administration Protocol Methocarbamol 500 mg 12/30/24 09:00 01/02/25 08:54 Methocarbamol 500 Mg Tablet PO 01/29/25 08:59 500 mg BID DEWAYNE Administration Nitrofurantoin Macrocrystals 100 mg 12/29/24 13:15 01/02/25 08:55 Nitrofurantoin Macro 100 Mg Capsule PO 01/05/25 13:14 100 mg BID DEWAYNE Administration Ondansetron HCl 4 mg 12/26/24 05:21 Ondansetron Inj 2 Mg/Ml Inj 2 Ml IV 01/25/25 05:20 Q6H PRN NAUSEA OR VOMITING Protocol Oxycodone/Acetaminophen 1 tab 12/29/24 08:33 01/02/25 03:23 Oxycodone/Apap 5/325 Tablet PO 01/03/25 08:32 1 tab Q6HR PRN Administration PAIN SCALE 4-10(Mod-Sev Protocol Pantoprazole Sodium 40 mg 01/01/25 09:00 01/02/25 08:55 Pantoprazole 40 Mg Tablet PO 01/25/25 08:59 40 mg QDAY DEWAYNE Administration Pharmacy Consult 1 each 12/27/24 09:45 Vancomycin Pharmacy To Dose 1 Each Each IV 01/26/25 09:44 QDAY PRN PROTOCOL Simethicone 80 mg 12/30/24 15:38 Simethicone 80 Mg Chew PO 01/29/25 15:37 QID PRN GAS Vitamin B Complex/Vit C/Folic Acid 1 tab 12/26/24 09:00 01/02/25 08:54 Vit B12/Vit C/Fa (Nephrovite) Tablet PO 01/25/25 08:59 1 tab QDAY DEWAYNE Administration Plan Assessment and Plan: Summary: Ms. 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 Orthopedics and oncology were consulted. With progression of hospital course General Surgery was officially consulted, eventually had excisional debridement of sacral and left lateral lower extremity wounds performed on 12/27/24, infectious disease was consulted due to sacral osteomyelitis, initially orthopedics was consulted who recommended general surgery consult, urology consulted due to chronic indwelling Reid considering patient being catheter dependent. With the progression of hospital course patient also had PICC line placement due to 2 sets of positive blood cultures and cardiology was consulted for THOMAS to evaluate heart for possible vegetations and rule out bacterial endocarditis. #Coccygeal osteomyeltiis #Staph hominis bacteremia, on 2 consecutive blood cultures #Stage IV sacral ulcer #Severe PAD, s/p RLE BKA + LLE 3rd digit amputation Patient originally admitted for coccygeal osteomyelitis, general surgery was consulted eventually had excisional debridement of sacral ulcer and left lower extremity wounds on 12/27/2024. Patient had 2 sets of blood cultures positive for Staph hominis, initial set positive for 2/2, follow-up set positive for 1/2. Infectious diseases on board, patient had PICC line placed for IV antibiotics. CT abdomen pelvis 12/25/2024 shows Large soft tissue ulceration in the posterior lower back with osteomyelitis coccygeal segments. Cardiology consulted for THOMAS to further rule out endocarditis. Patient is currently on Macrobid p.o., IV vancomycin. Patient does not have any history of any CAD and denies any Stents or any previous surgeries or valve replacements. 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 TTE 12/27/2024 shows LV size and function normal with an estimated EF of 55 to 60%. Diastolic dysfunction stage I. Normal RV size and function with normal RVSP of 25 mmHg. Mild TR. Moderate aortic valve sclerosis with possible mild stenosis. V-max is only 2.2-2.3 m/s mean gradient is 11 mmHg but valve area is 1.2 cm?. Mild MAC along with mild thickening of the mitral leaflets along with mild MR. Patient denies any kind of swallowing problems or any kind of esophageal interventions or previous surgeries. Patient denies any kind of gastric ulcers bleeding and any other hematemesis or hematochezia. Patient denies any issues with anesthesia previously. Patient explained all the risks, benefits and alternatives of THOMAS including the risk of perforation, bleeding, respiratory failure secondary to sedation, injury to teeth gums esophagus and stomach. Patient understands all risks and benefits and provided consent for the procedure. We will keep him n.p.o. overnight and plan for THOMAS in the morning. Plan: -Will schedule patient for THOMAS in a.m. -NPO after midnight. -Will obtain consult from patient's family -Continue management per primary team -Infectious diseases consulted and following case #Catheter associated UTI #Chronic reid #Microscopic hematuria Ceftriaxone 2 g IV daily (12/25-12/29) Urine culture 12/27: ESBL E. coli Currently on p.o. nitrofurantoin and IV Vancomycin. #Hx of endometrial CA s/p hysterectomy + BSO in 2016, s/p radiation + chemotherapy 2016?2021 CT A/P showed 3.1 cm heterogeneously enhancing nodular mass adjacent to superior aspect of the urinary bladder, suspicious for neoplasm ? Oncology consulted, appreciate recommendations ? Recommended urology consult and cystoscopy with biopsy ? Urology consulted, appreciate recommendations ? States that currently not safe to undergo cystoscopy ? Follow-up urine cytology #Type 2 diabetes mellitus A1c 7.6%. Management per primary team, recommend strict glycemic control, blood sugar while inpatient in the range of 140-180. #Hyperlipidemia On home atorvastatin 40 mg p.o. daily #Normocytic anemia, secondary to #Iron deficiency Normocytic anemia Hb 9.4 MCV 89. Iron panel: Iron 23, TIBC 601, iron saturation 3%, unsaturated iron binding 578 recommend IV iron infusions, ferric gluconate for 5 days #Abdominal pain #Non-anion gap metabolic acidosis in setting of ileostomy, resolved Thank you for the consult and allowing to participate in the care of the patient. Cardiology will continue to follow. Case discussed with Attending Dr. Travis. Carrillo Florentino PGY1 Attending Provider Attestation/Addendum I reviewed the resident Dr. Carrillo Florentino consultation progress note and agree with the resident findings and plan in the note above and have also edited the documentation to reflect my findings and plan. Jeovanny Travis M.D. Interventional Cardiology
[2025-01-02] MEDS: VANCOMYCIN/NS 500 MG IVPB 100 ML 129 MG IV ×2 (10:29→20:50)
[2025-01-02] MEDS: MG HYD/AL HYD/SIME (Maalox Reg) SUSP 30 ML UDC PO (11:59)
[2025-01-02 12:00] VITALS: BP 147/64; PULSE 93; RESP 17; TEMP 36.6; O2SAT 99
--- NOTE | 2025-01-02 12:26 | PC.NURSE ---
pt refusing to turn, wants bed to stay elevated
--- NOTE | 2025-01-02 13:09 | PD.RESPRO ---
Documentation for date of: 01/02/25 Subjective Subjective Interval history: Patient was seen and examined at the bedside. No acute overnight events were reported. Patient reported that she continues to have abdominal discomfort and pain in the epigastric region despite changing the diet. She was complaining of burning sensation during eating. Maalox and Tylenol was added for pain. Vitals were stable this morning. Patient has a drop in hemoglobin at 7.6. Repeated hemoglobin at midnight. Chemistry panel was unremarkable. Kidney functions remained stable. Blood glucose was stable. Will continue with calamine lotion for itching. Currently waiting on THOMAS scheduled for tomorrow. Lovenox was held. N.p.o. after midnight. All labs and orders were reviewed. Exam Vital Signs Temp Pulse Resp BP Pulse Ox O2 Del Method 97.8 F 93 17 147/64 H 99 Room Air 01/02/25 12:00 01/02/25 12:00 01/02/25 12:00 01/02/25 12:00 01/02/25 12:00 01/02/25 12:00 Narrative Exam General: AOx3, laying comfortably on bed, able to speak full sentences HEENT: NC/AT, mucous membranes moist, bilateral sclera anicteric Cardiovascular: regular rate and rhythm, S1/S2 present, no murmurs appreciated Pulmonary: clear to auscultation bilaterally, no rales/rhonchi/wheezes Abdominal: epigastric abdominal pain, ileostomy noted and functional with stool, soft, non-tender, non-distended Musculoskeletal: RLE s/p AKA, LLE s/p 3rd digit amputation Skin: stage 4 sacral ulcer and LLE leions now bandaged and s/p I&D Neuro: CN II-XII intact, no focal deficits Objective Labs 01/07/25 04:40 01/07/25 04:40 Labs: Laboratory Results - last 24 hr 01/01/25 01/02/25 21:01 04:51 WBC 10.8 RBC 2.59 L Hgb 7.6 L Hct 23.3 L MCV 90 MCH 29.3 MCHC 32.6 RDW Std Deviation 43.0 Plt Count 416 Neut % (Auto) 62 Lymph % (Auto) 24 [place] % (Auto) 8 Eos % (Auto) 6 Baso % (Auto) 0 Neut # (Auto) 6.7 Lymph # (Auto) 2.6 [place] # (Auto) 0.9 H Eos # (Auto) 0.6 H Baso # (Auto) 0.0 Immature Gran # (Auto) 0.03 H Absolute Nucleated RBC 0.00 Immature Gran % 0 Nucleated RBC % 0 Sodium 135 L Potassium 3.9 Chloride 103 Carbon Dioxide 22.6 Anion Gap 9 BUN 6 L Creatinine 0.6 Estim Creat Clear Calc 80.7 eGFR > 60 BUN/Creatinine Ratio 10 L Glucose 179 H Calculated Osmolality 271 L Calcium 8.6 Corrected Calcium 9.2 Phosphorus 3.3 Magnesium 2.1 Total Bilirubin 0.2 L AST 12 ALT < 7 L Alkaline Phosphatase 75 Total Protein 6.6 Albumin 3.3 L Globulin 3.3 Albumin/Globulin Ratio 1.0 L Vancomycin Trough 18.1 H Quality Measures Quality Measures VTE prophylaxis (Lovenox on hold ) Advance care planning discussed with:: other Assessment & Plan Assessment Current Active Medications: Generic Name Dose Route Start Last Admin Trade Name Freq PRN Reason Stop Dose Admin Acetaminophen 650 mg 01/02/25 11:40 Acetaminophen 325 Mg Tablet PO 02/01/25 11:39 Q4HR PRN PAIN SCALE 1-3 (mild Acetaminophen 1,000 mg 01/02/25 11:41 Acetaminophen 500 Mg Tablet PO 01/25/25 05:20 Q6H PRN Fever >100 Al Hydrox/Mg Hydrox/Simethicone 30 ml 01/02/25 10:55 01/02/25 11:59 Mg Hyd/Al Hyd/Ashley (Maalox Reg) Susp 30 Ml Udc PO 02/01/25 10:54 30 ml Q4HR PRN Administration UPSET STOMACH/INDIGESTION Atorvastatin Calcium 40 mg 12/30/24 21:00 01/01/25 21:06 Atorvastatin Calcium 20 Mg Tablet PO 01/29/25 20:59 Not Given HS DEWAYNE Calamine 0 ml 12/28/24 14:44 Calamine Lotion 120 Ml Btl TOP 01/27/25 14:43 UD PRN ITCHING Dextrose 50 ml 12/26/24 05:44 Dextrose 50%-Water Inj 50 Ml Syringe IV 01/25/25 05:43 Q15MIN PRN BG <50 OR BG <70 & pt unresponsive Diphenhydramine HCl 25 mg 12/27/24 23:40 01/01/25 21:06 Diphenhydramine 25 Mg Capsule PO 01/26/25 23:39 25 mg HS DEWAYNE Administration Enoxaparin Sodium 40 mg 12/26/24 09:00 01/02/25 08:54 Enoxaparin Sod Inj 40 Mg/0.4 Ml Syringe SC 01/09/25 08:59 40 mg QDAY DEWAYNE Administration Vancomycin/Sodium Chloride 100 mls @ 120 mls/hr 12/31/24 10:00 01/02/25 10:29 Vancomycin/Ns 500 Mg Ivpb IV 01/07/25 09:59 129 mls/hr Q12H DEWAYNE Administration Protocol Insulin Human Lispro 0 unit 12/29/24 11:25 01/02/25 11:58 Insulin Lispro (Admelog) 1 Unit/0.01 Ml Unit SC 01/25/25 07:29 3 unit AC DEWAYNE Administration Protocol Methocarbamol 500 mg 12/30/24 09:00 01/02/25 08:54 Methocarbamol 500 Mg Tablet PO 01/29/25 08:59 500 mg BID DEWAYNE Administration Nitrofurantoin Macrocrystals 100 mg 12/29/24 13:15 01/02/25 08:55 Nitrofurantoin Macro 100 Mg Capsule PO 01/05/25 13:14 100 mg BID DEWAYNE Administration Ondansetron HCl 4 mg 12/26/24 05:21 Ondansetron Inj 2 Mg/Ml Inj 2 Ml IV 01/25/25 05:20 Q6H PRN NAUSEA OR VOMITING Protocol Oxycodone/Acetaminophen 1 tab 12/29/24 08:33 01/02/25 03:23 Oxycodone/Apap 5/325 Tablet PO 01/03/25 08:32 1 tab Q6HR PRN Administration PAIN SCALE 4-10(Mod-Sev Protocol Pantoprazole Sodium 40 mg 01/01/25 09:00 01/02/25 08:55 Pantoprazole 40 Mg Tablet PO 01/25/25 08:59 40 mg QDAY DEWAYNE Administration Pharmacy Consult 1 each 12/27/24 09:45 Vancomycin Pharmacy To Dose 1 Each Each IV 01/26/25 09:44 QDAY PRN PROTOCOL Simethicone 80 mg 12/30/24 15:38 Simethicone 80 Mg Chew PO 01/29/25 15:37 QID PRN GAS Vitamin B Complex/Vit C/Folic Acid 1 tab 12/26/24 09:00 01/02/25 08:54 Vit B12/Vit C/Fa (Nephrovite) Tablet PO 01/25/25 08:59 1 tab QDAY DEWAYNE Administration Plan Ni Schmid is a 64-y/o female with a PMHx of endometrial carcinoma diagnosed in 2016 s/p robotic hysterectomy and bilateral salpingo-oophorectomy at [facility] in 2016, s/p brachytherapy and external beam radiation for recurrent vaginal cuff tumor in 2018 and chemotherapy until 2021 for the same, 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 Presented on 12/25 for recurrent leakage around Reid catheter, dysuria, and foul-smelling urine x24 hours and admitted for work-up and management of chronic Reid catheter associated UTI and coccygeal osteomyelitis (stage IV sacral ulcer). THOMAS tomorrow. #Coccygeal osteomyeltiis #Staph hominis bacteremia #Stage IV sacral ulcer #Severe PAD, s/p RLE BKA + LLE 3rd digit amputation Echo on 12/27 without signs of vegetations. EF 55 to 60% with normal LV size and function, stage I diastolic dysfunction. Blood cultures 12/25: 2/2 bottles positive for Staph hominis Blood cultures 12/27: 1/2 bottles positive for Staph hominis Blood cultures 12/29: NGTD S/p debridement of sacral ulcer and LLE wounds on 12/27 ? Vancomycin IV BID (12/27-) ? Status-post PICC line placement 12/31 ? THOMAS on friday, 01/03 ? Continue vancomycin until THOMAS and if negative ? if THOMAS (-) -> ertapenem + vancomycin -> doxycycline for home ? if THOMAS (+) -> longer course of IV vancomycin ? Referral to wound care ? Vitamin B complex, vitamin C, folic acid tablets PO daily ?Patient had a hemoglobin drop today from-- 8.9--> 7.6 [repeated H&H at midnight] ? N.p.o. after midnight, Lovenox on hold #Catheter associated UTI #Chronic reid #Microscopic hematuria Ceftriaxone 2 g IV daily (12/25-12/29) Urine culture 12/27: ESBL E. coli ? Nitrofurantoin 100 mg p.o. twice daily (12/29-) #Hx of endometrial CA s/p hysterectomy + BSO in 2016, s/p radiation + chemotherapy 2016?2021 CT A/P showed 3.1 cm heterogeneously enhancing nodular mass adjacent to superior aspect of the urinary bladder, suspicious for neoplasm ? Oncology consulted, appreciate recommendations ? Recommended urology consult and cystoscopy with biopsy ? Urology consulted, appreciate recommendations ? States that currently not safe to undergo cystoscopy ? Follow-up urine cytology #Type 2 diabetes mellitus A1c 7.6%. ? SSI with Accu-Checks ?Continue SSI to step 3 #Hyperlipidemia ? Home Atorvastatin 40 mg p.o. daily #Normocytic anemia, secondary to #Iron deficiency Normocytic anemia Hb 9.4 MCV 89. Iron panel: Iron 23, TIBC 601, iron saturation 3%, unsaturated iron binding 578 #Abdominal pain ? Home methocarbamol 500 mg p.o. twice daily ? Simethicone 80 mg PO QID PRN ? Registered dietitian referral ?Added Maalox and Tylenol as needed ?Added dicyclomine ? Low fiber diet #Non-anion gap metabolic acidosis in setting of ileostomy, resolved Antibiotics: Vancomycin 12/27- Macrobid 12/29- Ceftriaxone 12/25-12/29 Doxycycline 12/26-12/27 Hospital management: Disposition: osteomyelitis, Staph hominis bacteremia; ID following Fluids: none Diet: carbohydrate consistent low, n.p.o. after midnight Lines: PIV DVT prophylaxis: enoxaparin on hold for tomorrow GI prophylaxis: pantoprazole CODE STATUS: limited code, no chest compressions Plan of care discussed with attending physician, Dr. Chase Blancas MD, PGY 2 Attending Provider Attestation/Addendum Patient seen and examined at bedside with residents. Agree with assessment and plan as dictated above and have reviewed all aspects of the history, imaging and labs. Pepe Stone MD
[2025-01-02 16:00] VITALS: BP 144/76; PULSE 88; RESP 17; TEMP 36.5; O2SAT 98
[2025-01-02] MEDS: DICYCLOMINE 10 MG CAPSULE PO (17:05)
[2025-01-02 20:00] VITALS: BP 147/60; PULSE 95; RESP 18; TEMP 36.9; O2SAT 100
[2025-01-02] MEDS: DiphenhydrAMINE 25 MG CAPSULE PO ×2 (23:24→23:25)
[2025-01-03] VITALS (23 sets, daily range): BP systolic 123–185; BP diastolic 52–93; PULSE 85–109; RESP 12–21; TEMP 36.1–37.4; O2SAT 96–100; BMI 23.3
[2025-01-03 00:54] LABS: Hematocrit 23.9 % (36.0-46.0); Hemoglobin 7.9 g/dL (12.0-16.0)
[2025-01-03 05:57] LABS: Basophils % (Auto) 0 % (0-2.5); Eosinophils # (Auto) 0.5 Thou/mm3 (0.0-0.5); Eosinophils % (Auto) 4 % (0-10); Immature Granulocytes % (Auto) 0 % (0-0); Immature Granulocytes Auto 0.04 Thou/mm3 (0.00-0.00); Lymphocytes # (Auto) 1.5 Thou/mm3 (1.0-4.8); Lymphocytes % (Auto) 13 % (10-50); Mean Corpuscular HGB Conc 32.4 g/dl (31.0-37.0); Mean Corpuscular Volume 90 fL (80-100); Monocytes # (Auto) 0.8 Thou/mm3 (0.0-0.8); Monocytes % (Auto) 7 % (0-12); Neutrophils # (Auto) 8.4 Thou/mm3 (1.8-7.7); Neutrophils % (Auto) 74 % (37-80); Nucleated Red Blood Cell % 0 /100 WBC (0); Platelet Count 406 Thou/mm3 (140-440); Red Blood Count 2.79 Miln/mm3 (4.00-5.20); White Blood Count 11.3 Thou/mm3 (3.6-11.0)
[2025-01-03 06:00] LABS: Hemoglobin 8.1 g/dL (12.0-16.0)
[2025-01-03 07:02] LABS: Alanine Aminotransferase < 7 U/L (10-49); Albumin, Serum 3.3 gm/dL (3.4-4.8); Anion Gap 10 (7-16); Aspartate Amino Transferase 12 U/L (0-34); BUN/Creatinine Ratio 8 Ratio (12-20); Bilirubin,Total 0.2 mg/dL (0.3-1.2); Blood Urea Nitrogen 5 mg/dL (9-23); Calcium 8.7 mg/dL (8.3-10.6); Calcium (Corrected) 9.3 mg/dL (8.5-10.1); Carbon Dioxide 23.1 mMol/L (20.0-31.0); Chloride 102 mMol/L (98-107); Creatinine (Component) 0.6 mg/dL (0.6-1.3); Estimated Creatinine Clearance 80.7 mL/min (>60); Globulin 3.3 gm/dL (2.3-3.5); Glucose 128 mg/dL (74-106); Magnesium 1.6 mg/dL (1.6-2.6); Osmolality,Calculated 269 (275-295); Phosphorous 2.8 mg/dL (2.4-5.1); Potassium 3.9 mMol/L (3.4-5.1); Sodium 135 mMol/L (136-145); Total Protein 6.6 gm/dL (5.7-8.2); eGFR > 60 See Note
[2025-01-03 07:03] LABS: Alkaline Phosphatase 76 U/L (46-116)
--- NOTE | 2025-01-03 09:10 | PD.IDPROG ---
Subjective Subjective Interval history: no TERI yet. looks like it is planned though. Exam Vital Signs Temp Pulse Resp BP Pulse Ox O2 Del Method 99.4 F 103 H 18 137/65 H 98 Room Air 01/03/25 08:00 01/03/25 08:00 01/03/25 08:00 01/03/25 08:00 01/03/25 08:00 01/03/25 08:00 Narrative Exam limited visit. can not make a plan w/o teri. no bx noted either Objective - Internal Medicine Labs 01/03/25 05:41 01/03/25 05:41 Labs: Laboratory Results - last 24 hr 01/03/25 01/03/25 00:24 05:41 WBC 11.3 H RBC 2.79 L Hgb 7.9 L 8.1 L Hct 23.9 L 25.0 L MCV 90 MCH 29.0 MCHC 32.4 RDW Std Deviation 42.0 Plt Count 406 Neut % (Auto) 74 Lymph % (Auto) 13 [place] % (Auto) 7 Eos % (Auto) 4 Baso % (Auto) 0 Neut # (Auto) 8.4 H Lymph # (Auto) 1.5 [place] # (Auto) 0.8 Eos # (Auto) 0.5 Baso # (Auto) 0.0 Immature Gran # (Auto) 0.04 H Absolute Nucleated RBC 0.00 Immature Gran % 0 Nucleated RBC % 0 Sodium 135 L Potassium 3.9 Chloride 102 Carbon Dioxide 23.1 Anion Gap 10 BUN 5 L Creatinine 0.6 Estim Creat Clear Calc 80.7 eGFR > 60 BUN/Creatinine Ratio 8 L Glucose 128 H D Calculated Osmolality 269 L Calcium 8.7 Corrected Calcium 9.3 Phosphorus 2.8 Magnesium 1.6 Total Bilirubin 0.2 L AST 12 ALT < 7 L Alkaline Phosphatase 76 Total Protein 6.6 Albumin 3.3 L Globulin 3.3 Albumin/Globulin Ratio 1.0 L Assessment & Plan A&P Narrative pos bc s hominis in all 3 pos specimens pos urine cx and ua in pt with hx of fistulous connection can not r/o asb. creat ok possible sacral osteo neg transthoracic echo noted hep c neg procal neg 12/25. ok to treat for 6 weeks with appropriate abx, but du's are not improved with abx but with avoidance of pressure. changed gnr coverage to macrobid on fri12/29/24 left on vanco till teri neg she has a rt sided port that should be noted. so if teri neg, then this may be iv related bacteremia no matter what abx used, need to avoid pressure to the du area. organism in urine unlikely to be same as in bc or in sacral wound. get a biopsy to r/o ca as a cause of the du as she is young at only 64 yoa. try for a teri before vanco cessation please we need to be accurate with our dx as much as possible. if teri neg, then we may go to ertapenem and vanco then doxy for home. if teri pos, may have to give longer iv vanco. will look in again on friday Time Spent With Patient Time: Total time spent is greater than 50% in coordination of care (as documented) at patient's floor/unit and/or counseling patient:
[2025-01-03 10:19] LABS: Vancomycin,Trough 19.4 mcg/mL (5.0-10.0)
--- NOTE | 2025-01-03 10:35 | PC.NURSE ---
Patient transferred to IR at this time for procedure. Report given to slab stripper staff.
--- NOTE | 2025-01-03 12:00 | ECHO_ITS ---
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 Normal left ventricular diastolic filling pattern for age. The ejection fraction is visually estimated at 60-65 %. Right Ventricle The right ventricle is normal in size and systolic function. Left Atrium The left atrium is normal by two-dimensional, color flow and Doppler imaging with no structural abnormalities, no thrombus formation present. Right Atrium The right atrium is normal by two-dimensional imaging, color flow and Doppler imaging with no structural abnormalities, no thrombus formation present. Atrial Appendages The left atrial appendage appears normal with no evidence for thrombus. Atrial Septum The interatrial septum is normal to color flow Doppler and agitated saline imaging. Aorta The aorta is normal by two-dimensional, color flow and Doppler interrogation. Mitral Valve Mild mitral regurgitation. Aortic Valve Mild thickening of the aortic valve leaflets. Mild aortic valve stenosis. Tricuspid Valve There is mild tricuspid valve regurgitation. Pulmonic Valve The pulmonic valve is normal by two-dimensional, color flow and Doppler interrogation. There is no significant pulmonic valve regurgitation. Vessels The pulmonary artery appears normal. The inferior vena cava pulmonary and hepatic veins appear normal. Pericardium The pericardium is normal by two-dimensional imaging. There is no significant pericardial effusion. Other Findings possible vegetation on port tip CONCLUSIONS Indication: Bacteremia rule out endocarditis Small linear echodensity noted near tip of the Port-A-Cath in the right atrium suspicious for vegetation and less likely thrombus. Normal LV size and function with an EF of 60 to 65%. Normal RV size and function. Trace TR Mild MR, mild aortic valve sclerosis without stenosis No evidence of any vegetations noted on any of the valves. No LA/ANNMARIE thrombus. No evidence of any PFO or ASD. Bubble study negative Jeovanny Anumandla (Electronically Signed) Final Date: 03 January 2025 22:30
--- NOTE | 2025-01-03 12:35 | PC.NURSE ---
patient allergic to fentanyl and morphine, Dr. Travis made aware, versed only ordered for sedation
[2025-01-03] MEDS: MIDAZOLAM INJ 1 MG/ML VIAL 2 ML 8 MG IV (12:48)
[2025-01-03] MEDS: BENZOCAINE 20% (Hurricaine) SPRAY 1 DOSE TOP (12:48)
--- NOTE | 2025-01-03 13:44 | ESPR_ITS ---
<Statement entered by Purnima Bhatt MD - 01/03/25 19:23> Patient was seen and examined by me personally. I agree with most of the assessment and plan as discussed with the internal combustion engine subassembler physician, and my attending, Dr. Kitchen. Patient is s/p THOMAS, pending operative report. Also pending final blood culture speciation and antibiotic recs on discharge. Vitals, labs reviewed. Mild leukocytosis and increase in hemoglobin, although remains anemic at 8.1. CHEM panel fairly unremarkable. 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 Presented on 12/25 for recurrent leakage around Reid catheter, dysuria, and foul-smelling urine x24 hours and admitted for work-up and management of chronic Reid catheter associated UTI and coccygeal osteomyelitis (stage IV sacral ulcer). 12/26: Seen and examined at bedside in ED and on medical floor. No acute overnight events reported. Denies fever, chills, nausea, vomiting, shortness of breath, or chest pain. States that she has a ic designer gate arrays who sees patient after being discharged from [facility] approximately 3 weeks ago. Patient is satisfied with care but heike evaluation, noted to have dry and gangrenous lesions on heel and lateral aspect of the left lower extremity: So we will look into APS consult at this time and manager social notified. Will continue ceftriaxone and doxycycline follow-up blood and urine cultures. Wound care order placed, orthopedic surgery and infectious disease consulted for osteomyelitis, and oncology consulted for bladder mass seen on imaging. Will follow-up on recommendations. 12/27: Seen and examined at bedside on medical floors. No acute overnight events reported. Denies fever, chills, N/V, SOB, or chest pain. Orthopedic surgery consulted and deferred possible LLE procedure to general surgery, who stated that given R AKA is still healing and will not pursue definitive surgical treatment of LLE. However, general surgery was able to debride sacral decubitus ulcer and packed, LLE wounds also debrided. Oncology also consulted given bladder mass seen on CT and recommended urology consult for cystoscopy with biopsy. Thus, consult placed and urologist contacted regarding case and plans to see patient tomorrow after urine cytology obtained. Per ID, given positive 2/2 blood cultures with GPC, will obtain another set of blood cultures and doxycycline DC'd and switched to vancomycin. Echo also ordered. Patient's sister, Mayra, at bedside and updated regarding current plans and management. 12/28: Seen and examined at bedside on medical floors. No acute overnight events reported. No fevers overnight and WBC remained stable. Second round of blood cultures noted to be positive in 1 of 2 bottles for GPC. Will send second set of blood cultures tomorrow. Echo obtained and showed no signs of vegetations. Urology evaluated patient and deemed that given GPC bacteremia that is not safe to undergo cystoscopy. MRSA nares positive and urine culture growing GNR, ID to follow. 12/29: Seen and examined at bedside on medical floors. No acute overnight events reported. No fevers overnight and WBC continues to remain stable. Patient endorses abdominal pain but is chronic and states that she has experienced this at home. Will restart patient's home methocarbamol. 12/30: Seen and examined at bedside on medical floors. No acute overnight events reported. No fevers overnight and WBC stable and within normal limits. Continues to endorse abdominal pain despite resuming methocarbamol and will start on simethicone to see if it helps relieve patient symptoms. Spoke to patient's sister regarding possible PICC line placement as she is POA and patient prefers to have sister around to make medical decisions. Plan to have sister come tomorrow at 10 AM and will have discussion then. 12/31: Seen and examined at bedside on medical floors. No acute overnight events reported. Spoke to patient and sister at bedside regarding PICC line placement as well as THOMAS that was recommended by infectious disease due to blood cultures resulting the same species. Risks, benefits, and options discussed at length and both were in agreement for PICC line placement as well as THOMAS. 01/01: Seen and examined at bedside on medical floors. No acute overnight events reported. She continues to endorse abdominal pain that has not been relieved by simethicone or methocarbamol. Will consult dietitian to see if we can optimize her diet. Otherwise, status post placement of PICC line and tolerated well and plan for THOMAS on Friday. 01/03: Seen and examined at bedside on medical floors. No acute overnight events reported. Naloxone Tylenol added for abdominal pain but still no relief. Denies shortness of breath, chest pain, or N/V overnight. Otherwise, THOMAS scheduled in afternoon and will follow-up on results to determine antibiotic course. Exam Vital Signs Temp Pulse Resp BP Pulse Ox O2 Del Method 99.4 F 103 H 18 137/65 H 98 Room Air 01/03/25 08:00 01/03/25 08:00 01/03/25 08:00 01/03/25 08:00 01/03/25 08:00 01/03/25 08:00 Narrative Exam General: AOx3, laying comfortably on bed, able to speak full sentences HEENT: NC/AT, mucous membranes moist, bilateral sclera anicteric Cardiovascular: regular rate and rhythm, S1/S2 present, no murmurs appreciated Pulmonary: clear to auscultation bilaterally, no rales/rhonchi/wheezes Abdominal: epigastric abdominal pain, ileostomy noted and functional with stool, soft, non-tender, non-distended Musculoskeletal: RLE s/p AKA, LLE s/p 3rd digit amputation Skin: stage 4 sacral ulcer and LLE leions now bandaged and s/p I&D Neuro: CN II-XII intact, no focal deficits Objective Labs 01/03/25 05:41 01/03/25 05:41 Labs: Laboratory Results - last 24 hr 01/03/25 01/03/25 01/03/25 00:24 05:41 09:34 WBC 11.3 H RBC 2.79 L Hgb 7.9 L 8.1 L Hct 23.9 L 25.0 L MCV 90 MCH 29.0 MCHC 32.4 RDW Std Deviation 42.0 Plt Count 406 Neut % (Auto) 74 Lymph % (Auto) 13 Mcleod % (Auto) 7 Eos % (Auto) 4 Baso % (Auto) 0 Neut # (Auto) 8.4 H Lymph # (Auto) 1.5 Mcleod # (Auto) 0.8 Eos # (Auto) 0.5 Baso # (Auto) 0.0 Immature Gran # (Auto) 0.04 H Absolute Nucleated RBC 0.00 Immature Gran % 0 Nucleated RBC % 0 Sodium 135 L Potassium 3.9 Chloride 102 Carbon Dioxide 23.1 Anion Gap 10 BUN 5 L Creatinine 0.6 Estim Creat Clear Calc 80.7 eGFR > 60 BUN/Creatinine Ratio 8 L Glucose 128 H D Calculated Osmolality 269 L Calcium 8.7 Corrected Calcium 9.3 Phosphorus 2.8 Magnesium 1.6 Total Bilirubin 0.2 L AST 12 ALT < 7 L Alkaline Phosphatase 76 Total Protein 6.6 Albumin 3.3 L Globulin 3.3 Albumin/Globulin Ratio 1.0 L Vancomycin Trough 19.4 H Quality Measures Quality Measures VTE prophylaxis (Lovenox on hold ) Advance care planning discussed with:: patient Assessment & Plan Assessment Current Active Medications: Generic Name Dose Route Start Last Admin Trade Name Freq PRN Reason Stop Dose Admin Acetaminophen 650 mg 01/02/25 11:40 Acetaminophen 325 Mg Tablet PO 02/01/25 11:39 Q4HR PRN PAIN SCALE 1-3 (mild Acetaminophen 1,000 mg 01/02/25 11:41 Acetaminophen 500 Mg Tablet PO 01/25/25 05:20 Q6H PRN Fever >100 Al Hydrox/Mg Hydrox/Simethicone 30 ml 01/02/25 10:55 01/02/25 11:59 Mg Hyd/Al Hyd/Ashley (Maalox Reg) Susp 30 Ml Udc PO 02/01/25 10:54 30 ml Q4HR PRN Administration UPSET STOMACH/INDIGESTION Atorvastatin Calcium 40 mg 12/30/24 21:00 01/02/25 20:49 Atorvastatin Calcium 20 Mg Tablet PO 01/29/25 20:59 Not Given HS DEWAYNE Calamine 0 ml 12/28/24 14:44 Calamine Lotion 120 Ml Btl TOP 01/27/25 14:43 UD PRN ITCHING Dextrose 50 ml 12/26/24 05:44 Dextrose 50%-Water Inj 50 Ml Syringe IV 01/25/25 05:43 Q15MIN PRN BG <50 OR BG <70 & pt unresponsive Dicyclomine HCl 10 mg 01/02/25 15:37 01/02/25 17:05 Dicyclomine 10 Mg Capsule PO 02/01/25 15:36 10 mg QID PRN Administration ABDOMINAL CRAMPING Protocol Diphenhydramine HCl 25 mg 12/27/24 23:40 01/02/25 23:25 Diphenhydramine 25 Mg Capsule PO 01/26/25 23:39 25 mg HS DEWAYNE Administration Enoxaparin Sodium 40 mg 12/26/24 09:00 01/02/25 08:54 Enoxaparin Sod Inj 40 Mg/0.4 Ml Syringe SC 01/09/25 08:59 40 mg QDAY DEWAYNE Administration Vancomycin/Sodium Chloride 100 mls @ 120 mls/hr 12/31/24 10:00 01/02/25 20:50 Vancomycin/Ns 500 Mg Ivpb IV 01/07/25 09:59 129 mls/hr Q12H DEWAYNE Administration Protocol Insulin Human Lispro 0 unit 12/29/24 11:25 01/03/25 11:50 Insulin Lispro (Admelog) 1 Unit/0.01 Ml Unit SC 01/25/25 07:29 Not Given [facility] Protocol Lidocaine 1 patch 01/03/25 01:50 Lidocaine 5% 1 Patch TOP 02/02/25 08:59 QDAY PRN back pain Protocol Methocarbamol 500 mg 12/30/24 09:00 01/02/25 20:42 Methocarbamol 500 Mg Tablet PO 01/29/25 08:59 500 mg BID DEWAYNE Administration Nitrofurantoin Macrocrystals 100 mg 12/29/24 13:15 01/02/25 20:43 Nitrofurantoin Macro 100 Mg Capsule PO 01/05/25 13:14 100 mg BID DEWAYNE Administration Ondansetron HCl 4 mg 12/26/24 05:21 Ondansetron Inj 2 Mg/Ml Inj 2 Ml IV 01/25/25 05:20 Q6H PRN NAUSEA OR VOMITING Protocol Pantoprazole Sodium 40 mg 01/01/25 09:00 01/02/25 08:55 Pantoprazole 40 Mg Tablet PO 01/25/25 08:59 40 mg QDAY DEWAYNE Administration Pharmacy Consult 1 each 12/27/24 09:45 Vancomycin Pharmacy To Dose 1 Each Each IV 01/26/25 09:44 QDAY PRN PROTOCOL Simethicone 80 mg 12/30/24 15:38 Simethicone 80 Mg Chew PO 01/29/25 15:37 QID PRN GAS Vitamin B Complex/Vit C/Folic Acid 1 tab 12/26/24 09:00 01/02/25 08:54 Vit B12/Vit C/Fa (Nephrovite) Tablet PO 01/25/25 08:59 1 tab QDAY DEWAYNE Administration Plan Ni Schmid is a 64-y/o female with a PMHx of endometrial carcinoma diagnosed in 2015 s/p robotic hysterectomy and bilateral salpingo-oophorectomy at [facility] in 2016, s/p brachytherapy and external beam radiation for recurrent vaginal cuff tumor in 2018 and chemotherapy until 2021 for the same, 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 Presented on 12/25 for recurrent leakage around Reid catheter, dysuria, and foul-smelling urine x24 hours and admitted for work-up and management of chronic Reid catheter associated UTI and coccygeal osteomyelitis (stage IV sacral ulcer). #Coccygeal osteomyeltiis #Staph hominis bacteremia #Stage IV sacral ulcer #Severe PAD, s/p RLE BKA + LLE 3rd digit amputation Echo on 12/27 without signs of vegetations. EF 55 to 60% with normal LV size and function, stage I diastolic dysfunction. Blood cultures 12/25: 2/2 bottles positive for Staph hominis Blood cultures 12/27: 1/2 bottles positive for Staph hominis Blood cultures 12/29: NGTD S/p debridement of sacral ulcer and LLE wounds on 12/27 ? Vancomycin IV BID (12/27-) ? Status-post PICC line placement 12/31 ? Follow-up THOMAS ? Continue vancomycin until THOMAS and if negative ? if THOMAS (-) -> ertapenem + vancomycin -> doxycycline for home ? if THOMAS (+) -> longer course of IV vancomycin ? Referral to wound care ? Vitamin B complex, vitamin C, folic acid tablets PO daily #Catheter associated UTI #Chronic reid #Microscopic hematuria Ceftriaxone 2 g IV daily (12/25-12/29) Urine culture 12/27: ESBL E. coli ? Nitrofurantoin 100 mg p.o. twice daily (12/29-) #Hx of endometrial CA s/p hysterectomy + BSO in 2017, s/p radiation + chemotherapy 2016?2021 CT A/P showed 3.1 cm heterogeneously enhancing nodular mass adjacent to superior aspect of the urinary bladder, suspicious for neoplasm ? Oncology consulted, appreciate recommendations ? Recommended urology consult and cystoscopy with biopsy ? Urology consulted, appreciate recommendations ? States that currently not safe to undergo cystoscopy ? Follow-up urine cytology #Type 2 diabetes mellitus A1c 7.6%. ? Step 3 SSI with Accu-Checks #Hyperlipidemia ? Home Atorvastatin 40 mg p.o. daily #Normocytic anemia, secondary to #Iron deficiency Normocytic anemia Hb 9.4 MCV 89. Iron panel: Iron 23, TIBC 601, iron saturation 3%, unsaturated iron binding 578 #Abdominal pain ? Home methocarbamol 500 mg p.o. twice daily ? Simethicone 80 mg PO QID PRN ? Added Maalox and Tylenol as needed ? Added dicyclomine ? Registered dietitian referral: low fiber diet #Non-anion gap metabolic acidosis in setting of ileostomy, resolved Antibiotics: Vancomycin 12/27- Macrobid 12/29- Ceftriaxone 12/25-12/29 Doxycycline 12/26-12/27 Hospital management: Disposition: osteomyelitis, ESBL E. coli, Staph hominis bacteremia; ID following and pending THOMAS read Fluids: none Diet: carbohydrate consistent low Lines: PIV DVT prophylaxis: enoxaparin resumed 9 AM 01/04 GI prophylaxis: pantoprazole CODE STATUS: limited code, no chest compressions ----- Plan discussed with attending physician Dr. Kitchen and senior resident physician Dr. Nova Callejas MD PGY-1 Internal Medicine Attending Provider Attestation/Addendum I have discussed and was present for the essential components of the history, physical examination, diagnosis, and treatment plan with the resident. I agree with the patient's care as documented by the resident and amended herein by me. Israel Kitchen DO. Although this document has been carefully reviewed, there may still be some phonetic and other typographical errors. These errors are purely grammatical due to imperfections in the software program and should not be construed in any way to compromise the substance of the patient's medical care during this visit.
--- NOTE | 2025-01-03 14:21 | PC.NURSE ---
1321 patient sleepy and arousable, breathing unlabored, s/p THOMAS by dr Travis, patient to recover for 1hr. 1421 patient awake, alert, breathing unlabored, report givne to Manisha LEON, covering RN for Haily. Patient transferred back to [place] [id number] accompanied by Monique LEON.
[2025-01-03] MEDS: NITROFURANTOIN MACRO 100 MG CAPSULE PO ×2 (14:56→20:50)
[2025-01-03] MEDS: VIT B12/Vit C/FA (Nephrovite) TABLET 1 TAB PO (14:56)
[2025-01-03] MEDS: PANTOPRAZOLE 40 MG TABLET PO (14:56)
[2025-01-03] MEDS: methocarbamoL 500 MG TABLET PO ×2 (14:56→20:50)
--- NOTE | 2025-01-03 15:40 | PD.RESPRO ---
Documentation for date of: 01/03/25 Subjective Subjective Interval history: Patient seen and examined at bedside, sleeping comfortably. Patient is scheduled for THOMAS later today this afternoon. Otherwise patient has no complaints of chest pain or shortness of breath. Exam Vital Signs Temp Pulse Resp BP Pulse Ox O2 Del Method O2 Flow Rate 97.4 F 98 16 159/72 H 100 Nasal Cannula 3 01/03/25 12:00 01/03/25 12:30 01/03/25 12:30 01/03/25 12:30 01/03/25 12:30 01/03/25 12:30 01/03/25 12:30 Narrative Exam General: AOx3, laying comfortably on bed, able to speak full sentences HEENT: NC/AT, mucous membranes moist, bilateral sclera anicteric Cardiovascular: regular rate and rhythm, S1/S2 present, no murmurs appreciated Pulmonary: clear to auscultation bilaterally, no rales/rhonchi/wheezes Abdominal: epigastric abdominal pain, ileostomy noted and functional with stool, soft, non-tender, non-distended Musculoskeletal: RLE s/p AKA, LLE s/p 3rd digit amputation Skin: stage 4 sacral ulcer and LLE leions now bandaged and s/p I&D Neuro: CN II-XII intact, no focal deficits Objective Labs 01/03/25 05:41 01/03/25 05:41 Labs: Laboratory Results - last 24 hr 01/03/25 01/03/25 01/03/25 00:24 05:41 09:34 WBC 11.3 H RBC 2.79 L Hgb 7.9 L 8.1 L Hct 23.9 L 25.0 L MCV 90 MCH 29.0 MCHC 32.4 RDW Std Deviation 42.0 Plt Count 406 Neut % (Auto) 74 Lymph % (Auto) 13 [place] % (Auto) 7 Eos % (Auto) 4 Baso % (Auto) 0 Neut # (Auto) 8.4 H Lymph # (Auto) 1.5 [place] # (Auto) 0.8 Eos # (Auto) 0.5 Baso # (Auto) 0.0 Immature Gran # (Auto) 0.04 H Absolute Nucleated RBC 0.00 Immature Gran % 0 Nucleated RBC % 0 Sodium 135 L Potassium 3.9 Chloride 102 Carbon Dioxide 23.1 Anion Gap 10 BUN 5 L Creatinine 0.6 Estim Creat Clear Calc 80.7 eGFR > 60 BUN/Creatinine Ratio 8 L Glucose 128 H D Calculated Osmolality 269 L Calcium 8.7 Corrected Calcium 9.3 Phosphorus 2.8 Magnesium 1.6 Total Bilirubin 0.2 L AST 12 ALT < 7 L Alkaline Phosphatase 76 Total Protein 6.6 Albumin 3.3 L Globulin 3.3 Albumin/Globulin Ratio 1.0 L Vancomycin Trough 19.4 H Quality Measures Quality Measures VTE prophylaxis (Lovenox on hold ) Advance care planning discussed with:: patient Assessment & Plan Assessment Current Active Medications: Generic Name Dose Route Start Last Admin Trade Name Freq PRN Reason Stop Dose Admin Acetaminophen 650 mg 01/02/25 11:40 Acetaminophen 325 Mg Tablet PO 02/01/25 11:39 Q4HR PRN PAIN SCALE 1-3 (mild Acetaminophen 1,000 mg 01/02/25 11:41 Acetaminophen 500 Mg Tablet PO 01/25/25 05:20 Q6H PRN Fever >100 Al Hydrox/Mg Hydrox/Simethicone 30 ml 01/02/25 10:55 01/02/25 11:59 Mg Hyd/Al Hyd/Ashley (Maalox Reg) Susp 30 Ml Udc PO 02/01/25 10:54 30 ml Q4HR PRN Administration UPSET STOMACH/INDIGESTION Atorvastatin Calcium 40 mg 12/30/24 21:00 01/02/25 20:49 Atorvastatin Calcium 20 Mg Tablet PO 01/29/25 20:59 Not Given HS DEWAYNE Calamine 0 ml 12/28/24 14:44 Calamine Lotion 120 Ml Btl TOP 01/27/25 14:43 UD PRN ITCHING Dextrose 50 ml 12/26/24 05:44 Dextrose 50%-Water Inj 50 Ml Syringe IV 01/25/25 05:43 Q15MIN PRN BG <50 OR BG <70 & pt unresponsive Dicyclomine HCl 10 mg 01/02/25 15:37 01/02/25 17:05 Dicyclomine 10 Mg Capsule PO 02/01/25 15:36 10 mg QID PRN Administration ABDOMINAL CRAMPING Protocol Diphenhydramine HCl 25 mg 12/27/24 23:40 01/02/25 23:25 Diphenhydramine 25 Mg Capsule PO 01/26/25 23:39 25 mg HS DEWAYNE Administration Enoxaparin Sodium 40 mg 12/26/24 09:00 01/02/25 08:54 Enoxaparin Sod Inj 40 Mg/0.4 Ml Syringe SC 01/09/25 08:59 40 mg QDAY DEWAYNE Administration Vancomycin/Sodium Chloride 100 mls @ 120 mls/hr 12/31/24 10:00 01/03/25 14:56 Vancomycin/Ns 500 Mg Ivpb IV 01/07/25 09:59 Not Given Q12H DEWAYNE Protocol Insulin Human Lispro 0 unit 12/29/24 11:25 01/03/25 11:50 Insulin Lispro (Admelog) 1 Unit/0.01 Ml Unit SC 01/25/25 07:29 Not Given AC DEWAYNE Protocol Lidocaine 1 patch 01/03/25 01:50 Lidocaine 5% 1 Patch TOP 02/02/25 08:59 QDAY PRN back pain Protocol Methocarbamol 500 mg 12/30/24 09:00 01/03/25 14:56 Methocarbamol 500 Mg Tablet PO 01/29/25 08:59 500 mg BID DEWAYNE Administration Nitrofurantoin Macrocrystals 100 mg 12/29/24 13:15 01/03/25 14:56 Nitrofurantoin Macro 100 Mg Capsule PO 01/05/25 13:14 100 mg BID DEWAYNE Administration Ondansetron HCl 4 mg 12/26/24 05:21 Ondansetron Inj 2 Mg/Ml Inj 2 Ml IV 01/25/25 05:20 Q6H PRN NAUSEA OR VOMITING Protocol Pantoprazole Sodium 40 mg 01/01/25 09:00 01/03/25 14:56 Pantoprazole 40 Mg Tablet PO 01/25/25 08:59 40 mg QDAY DEWAYNE Administration Pharmacy Consult 1 each 12/27/24 09:45 Vancomycin Pharmacy To Dose 1 Each Each IV 01/26/25 09:44 QDAY PRN PROTOCOL Simethicone 80 mg 12/30/24 15:38 Simethicone 80 Mg Chew PO 01/29/25 15:37 QID PRN GAS Vitamin B Complex/Vit C/Folic Acid 1 tab 12/26/24 09:00 01/03/25 14:56 Vit B12/Vit C/Fa (Nephrovite) Tablet PO 01/25/25 08:59 1 tab QDAY DEWAYNE Administration Plan Assessment and Plan: Summary: Ms. 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 Orthopedics and oncology were consulted. With progression of hospital course General Surgery was officially consulted, eventually had excisional debridement of sacral and left lateral lower extremity wounds performed on 12/27/24, infectious disease was consulted due to sacral osteomyelitis, initially orthopedics was consulted who recommended general surgery consult, urology consulted due to chronic indwelling Reid considering patient being catheter dependent. With the progression of hospital course patient also had PICC line placement due to 2 sets of positive blood cultures and cardiology was consulted for THOMAS to evaluate heart for possible vegetations and rule out bacterial endocarditis. #Coccygeal osteomyeltiis #Staph hominis bacteremia, on 2 consecutive blood cultures #Stage IV sacral ulcer #Severe PAD, s/p RLE BKA + LLE 3rd digit amputation Patient originally admitted for coccygeal osteomyelitis, general surgery was consulted eventually had excisional debridement of sacral ulcer and left lower extremity wounds on 12/27/2024. Patient had 2 sets of blood cultures positive for Staph hominis, initial set positive for 2/2, follow-up set positive for 1/2. Infectious diseases on board, patient had PICC line placed for IV antibiotics. CT abdomen pelvis 12/25/2024 shows Large soft tissue ulceration in the posterior lower back with osteomyelitis coccygeal segments. Cardiology consulted for THOMAS to further rule out endocarditis. Patient is currently on Macrobid p.o., IV vancomycin. Patient does not have any history of any CAD and denies any Stents or any previous surgeries or valve replacements. Patient otherwise states that she never followed up with a political science instructor. TTE 12/27/2024 shows LV size and function normal with an estimated EF of 55 to 60%. Diastolic dysfunction stage I. Normal RV size and function with normal RVSP of 25 mmHg. Mild TR. Moderate aortic valve sclerosis with possible mild stenosis. V-max is only 2.2-2.3 m/s mean gradient is 11 mmHg but valve area is 1.2 cm?. Mild MAC along with mild thickening of the mitral leaflets along with mild MR. Patient denies any kind of swallowing problems or any kind of esophageal interventions or previous surgeries. Patient denies any kind of gastric ulcers bleeding and any other hematemesis or hematochezia. Patient denies any issues with anesthesia previously. Patient explained all the risks, benefits and alternatives of HTOMAS including the risk of perforation, bleeding, respiratory failure secondary to sedation, injury to teeth gums esophagus and stomach. Patient understands all risks and benefits and provided consent for the procedure. Plan: -Scheduled for THOMAS in afternoon -Keep patient n.p.o. -Obtained consent -Continue management per primary team -Infectious diseases consulted and following case #Catheter associated UTI #Chronic reid #Microscopic hematuria Ceftriaxone 2 g IV daily (12/25-12/29) Urine culture 12/27: ESBL E. coli Currently on p.o. nitrofurantoin and IV Vancomycin. #Hx of endometrial CA s/p hysterectomy + BSO in 2016, s/p radiation + chemotherapy 2016?2021 CT A/P showed 3.1 cm heterogeneously enhancing nodular mass adjacent to superior aspect of the urinary bladder, suspicious for neoplasm ? Oncology consulted, appreciate recommendations ? Recommended urology consult and cystoscopy with biopsy ? Urology consulted, appreciate recommendations ? States that currently not safe to undergo cystoscopy ? Follow-up urine cytology #Type 2 diabetes mellitus A1c 7.6%. Management per primary team, recommend strict glycemic control, blood sugar while inpatient in the range of 140-180. #Hyperlipidemia On home atorvastatin 40 mg p.o. daily #Normocytic anemia, secondary to #Iron deficiency Normocytic anemia Hb 9.4 MCV 89. Iron panel: Iron 23, TIBC 601, iron saturation 3%, unsaturated iron binding 578 recommend IV iron infusions, ferric gluconate for 5 days #Abdominal pain #Non-anion gap metabolic acidosis in setting of ileostomy, resolved Thank you for the consult and allowing to participate in the care of the patient. Cardiology will continue to follow. Case discussed with Attending Dr. Travis. Carrillo Florentino PGY1 Attending Provider Attestation/Addendum I reviewed the resident Dr. Carrillo Florentino consultation progress note and agree with the resident findings and plan in the note above and have also edited the documentation to reflect my findings and plan. Jeovanny Travis M.D. Interventional Cardiology
[2025-01-03] MEDS: INSULIN LISPRO (AdmeLOG) 1 UNIT/0.01 ML UNIT SC (17:43)
[2025-01-03] MEDS: oxyCODONE/APAP 5/325 TABLET 1 TAB PO (21:25)
[2025-01-03] MEDS: VANCOMYCIN/NS 500 MG IVPB 100 ML 129 MG IV (22:35)
[2025-01-04] VITALS: BP 121/51; PULSE 96; RESP 18; TEMP 36.6; O2SAT 98
[2025-01-04 04:00] VITALS: BP 139/54; PULSE 87; RESP 16; TEMP 36.6; O2SAT 98
[2025-01-04 06:06] LABS: Basophils % (Auto) 0 % (0-2.5); Eosinophils # (Auto) 0.3 Thou/mm3 (0.0-0.5); Eosinophils % (Auto) 4 % (0-10); Hematocrit 24.8 % (36.0-46.0); Immature Granulocytes % (Auto) 0 % (0-0); Immature Granulocytes Auto 0.03 Thou/mm3 (0.00-0.00); Lymphocytes # (Auto) 2.3 Thou/mm3 (1.0-4.8); Lymphocytes % (Auto) 26 % (10-50); Mean Corpuscular HGB Conc 31.9 g/dl (31.0-37.0); Mean Corpuscular Hemoglobin 28.7 pg (25.0-35.0); Mean Corpuscular Volume 90 fL (80-100); Monocytes # (Auto) 0.9 Thou/mm3 (0.0-0.8); Monocytes % (Auto) 10 % (0-12); Neutrophils # (Auto) 5.3 Thou/mm3 (1.8-7.7); Neutrophils % (Auto) 60 % (37-80); Nucleated Red Blood Cell % 0 /100 WBC (0); Platelet Count 348 Thou/mm3 (140-440); RDW Standard Deviation 42.5 fL (36.4-46.3); Red Blood Count 2.75 Miln/mm3 (4.00-5.20); White Blood Count 8.9 Thou/mm3 (3.6-11.0)
[2025-01-04 06:13] LABS: Hemoglobin 7.9 g/dL (12.0-16.0)
[2025-01-04 06:58] LABS: Anion Gap 8 (7-16); BUN/Creatinine Ratio 13 Ratio (12-20); Blood Urea Nitrogen 9 mg/dL (9-23); Calcium 8.6 mg/dL (8.3-10.6); Chloride 103 mMol/L (98-107); Creatinine (Component) 0.7 mg/dL (0.6-1.3); Estimated Creatinine Clearance 69.2 mL/min (>60); Glucose 268 mg/dL (74-106); Osmolality,Calculated 275 (275-295); Phosphorous 2.8 mg/dL (2.4-5.1); Potassium 3.7 mMol/L (3.4-5.1); Sodium 134 mMol/L (136-145); eGFR > 60 See Note
[2025-01-04 06:59] LABS: Alanine Aminotransferase < 7 U/L (10-49); Albumin, Serum 3.1 gm/dL (3.4-4.8); Alkaline Phosphatase 90 U/L (46-116); Aspartate Amino Transferase 12 U/L (0-34); Bilirubin,Total < 0.2 mg/dL (0.3-1.2); Calcium (Corrected) 9.3 mg/dL (8.5-10.1); Globulin 3.2 gm/dL (2.3-3.5); Magnesium 1.5 mg/dL (1.6-2.6); Total Protein 6.3 gm/dL (5.7-8.2)
[2025-01-04 08:00] VITALS: BP 161/63; PULSE 91; RESP 18; TEMP 36.2; O2SAT 98
[2025-01-04] MEDS: INSULIN LISPRO (AdmeLOG) 1 UNIT/0.01 ML UNIT SC ×2 (08:13→11:57)
[2025-01-04] MEDS: methocarbamoL 500 MG TABLET PO ×2 (08:14→21:16)
[2025-01-04] MEDS: NITROFURANTOIN MACRO 100 MG CAPSULE PO ×2 (08:14→21:16)
[2025-01-04] MEDS: VIT B12/Vit C/FA (Nephrovite) TABLET 1 TAB PO (08:14)
[2025-01-04] MEDS: PANTOPRAZOLE 40 MG TABLET PO (08:14)
[2025-01-04] MEDS: POTASSIUM CHLORIDE 20 mEq TABCR PO (09:51)
[2025-01-04] MEDS: VANCOMYCIN/NS 500 MG IVPB 100 ML 129 MG IV ×2 (09:51→21:16)
[2025-01-04] MEDS: Magnesium Sulfate 4 GM Ivpb 4 GM/50 ML BAG IV (09:52)
--- NOTE | 2025-01-04 10:10 | ESPR_ITS ---
Documentation for date of: 01/04/25 Subjective Subjective Interval history: Patient seen and examined at bedside. THOMAS 01/03/2025 shows Small linear echodensity noted near tip of the Port-A-Cath in the right atrium suspicious for vegetation and less likely thrombus. Normal LV size and function with an EF of 60 to 65%. Normal RV size and function. Trace TR Mild MR, mild aortic valve sclerosis without stenosis. No evidence of any vegetations noted on any of the valves. No LA/ANNMARIE thrombus. No evidence of any PFO or ASD. Bubble study negative Patient is otherwise stable, has no current complaints, denies any chest pain or shortness of breath. Exam Vital Signs Temp Pulse Resp BP Pulse Ox O2 Del Method O2 Flow Rate 97.1 F 91 18 161/63 H 98 Room Air 3 01/04/25 08:00 01/04/25 08:00 01/04/25 08:00 01/04/25 08:00 01/04/25 08:00 01/04/25 08:00 01/03/25 13:20 Narrative Exam General: AOx3, laying comfortably on bed, able to speak full sentences HEENT: NC/AT, mucous membranes moist, bilateral sclera anicteric Cardiovascular: regular rate and rhythm, S1/S2 present, no murmurs appreciated Pulmonary: clear to auscultation bilaterally, no rales/rhonchi/wheezes Abdominal: epigastric abdominal pain, ileostomy noted and functional with stool, soft, non-tender, non-distended Musculoskeletal: RLE s/p AKA, LLE s/p 3rd digit amputation Skin: stage 4 sacral ulcer and LLE leions now bandaged and s/p I&D Neuro: CN II-XII intact, no focal deficits Objective Labs 01/05/25 05:58 01/05/25 05:58 Labs: Laboratory Results - last 24 hr 01/03/25 01/04/25 09:34 05:13 WBC 8.9 RBC 2.75 L Hgb 7.9 L Hct 24.8 L MCV 90 MCH 28.7 MCHC 31.9 RDW Std Deviation 42.5 Plt Count 348 D Neut % (Auto) 60 Lymph % (Auto) 26 [place] % (Auto) 10 Eos % (Auto) 4 Baso % (Auto) 0 Neut # (Auto) 5.3 Lymph # (Auto) 2.3 [place] # (Auto) 0.9 H Eos # (Auto) 0.3 Baso # (Auto) 0.0 Immature Gran # (Auto) 0.03 H Absolute Nucleated RBC 0.00 Immature Gran % 0 Nucleated RBC % 0 Sodium 134 L Potassium 3.7 Chloride 103 Carbon Dioxide 23.0 Anion Gap 8 BUN 9 Creatinine 0.7 Estim Creat Clear Calc 69.2 eGFR > 60 BUN/Creatinine Ratio 13 Glucose 268 H D Calculated Osmolality 275 Calcium 8.6 Corrected Calcium 9.3 Phosphorus 2.8 Magnesium 1.5 L Total Bilirubin < 0.2 L AST 12 ALT < 7 L Alkaline Phosphatase 90 Total Protein 6.3 Albumin 3.1 L Globulin 3.2 Albumin/Globulin Ratio 1.0 L Vancomycin Trough 19.4 H Quality Measures Quality Measures VTE prophylaxis (Lovenox on hold ) Advance care planning discussed with:: patient Assessment & Plan Assessment Current Active Medications: Generic Name Dose Route Start Last Admin Trade Name Freq PRN Reason Stop Dose Admin Acetaminophen 650 mg 01/02/25 11:40 Acetaminophen 325 Mg Tablet PO 02/01/25 11:39 Q4HR PRN PAIN SCALE 1-3 (mild Acetaminophen 1,000 mg 01/02/25 11:41 Acetaminophen 500 Mg Tablet PO 01/25/25 05:20 Q6H PRN Fever >100 Al Hydrox/Mg Hydrox/Simethicone 30 ml 01/02/25 10:55 01/02/25 11:59 Mg Hyd/Al Hyd/Ashley (Maalox Reg) Susp 30 Ml Udc PO 02/01/25 10:54 30 ml Q4HR PRN Administration UPSET STOMACH/INDIGESTION Atorvastatin Calcium 40 mg 12/30/24 21:00 01/03/25 20:50 Atorvastatin Calcium 20 Mg Tablet PO 01/29/25 20:59 Not Given HS DEWAYNE Calamine 0 ml 12/28/24 14:44 Calamine Lotion 120 Ml Btl TOP 01/27/25 14:43 UD PRN ITCHING Collagenase 0 gm 01/04/25 21:00 Collagenase Oint 30 Gm Tube TOP 02/03/25 20:59 QDAY DEWAYNE Dextrose 50 ml 12/26/24 05:44 Dextrose 50%-Water Inj 50 Ml Syringe IV 01/25/25 05:43 Q15MIN PRN BG <50 OR BG <70 & pt unresponsive Dicyclomine HCl 10 mg 01/02/25 15:37 01/02/25 17:05 Dicyclomine 10 Mg Capsule PO 02/01/25 15:36 10 mg QID PRN Administration ABDOMINAL CRAMPING Protocol Diphenhydramine HCl 25 mg 12/27/24 23:40 01/02/25 23:25 Diphenhydramine 25 Mg Capsule PO 01/26/25 23:39 25 mg HS DEWAYNE Administration Enoxaparin Sodium 40 mg 12/26/24 09:00 01/04/25 08:11 Enoxaparin Sod Inj 40 Mg/0.4 Ml Syringe SC 01/09/25 08:59 Not Given QDAY DEWAYNE Vancomycin/Sodium Chloride 100 mls @ 120 mls/hr 12/31/24 10:00 01/04/25 09:51 Vancomycin/Ns 500 Mg Ivpb IV 01/07/25 09:59 129 mls/hr Q12H DEWAYNE Administration Protocol Magnesium Sulfate 4 gm in 50 mls @ 12.5 mls/hr 01/04/25 08:18 01/04/25 09:52 Magnesium Sulfate Ivpb IV 01/04/25 12:17 12.5 mls/hr X1 ONE Administration Insulin Human Lispro 0 unit 12/29/24 11:25 01/04/25 08:13 Insulin Lispro (Admelog) 1 Unit/0.01 Ml Unit SC 01/25/25 07:29 4 unit AC DEWAYNE Administration Protocol Lidocaine 1 patch 01/03/25 01:50 Lidocaine 5% 1 Patch TOP 02/02/25 08:59 QDAY PRN back pain Protocol Methocarbamol 500 mg 12/30/24 09:00 01/04/25 08:14 Methocarbamol 500 Mg Tablet PO 01/29/25 08:59 500 mg BID DEWAYNE Administration Nitrofurantoin Macrocrystals 100 mg 12/29/24 13:15 01/04/25 08:14 Nitrofurantoin Macro 100 Mg Capsule PO 01/05/25 13:14 100 mg BID DEWAYNE Administration Ondansetron HCl 4 mg 12/26/24 05:21 Ondansetron Inj 2 Mg/Ml Inj 2 Ml IV 01/25/25 05:20 Q6H PRN NAUSEA OR VOMITING Protocol Pantoprazole Sodium 40 mg 01/01/25 09:00 01/04/25 08:14 Pantoprazole 40 Mg Tablet PO 01/25/25 08:59 40 mg QDAY DEWAYNE Administration Pharmacy Consult 1 each 12/27/24 09:45 Vancomycin Pharmacy To Dose 1 Each Each IV 01/26/25 09:44 QDAY PRN PROTOCOL Simethicone 80 mg 12/30/24 15:38 Simethicone 80 Mg Chew PO 01/29/25 15:37 QID PRN GAS Vitamin B Complex/Vit C/Folic Acid 1 tab 12/26/24 09:00 01/04/25 08:14 Vit B12/Vit C/Fa (Nephrovite) Tablet PO 01/25/25 08:59 1 tab QDAY DEWAYNE Administration Plan Assessment and Plan: Summary: Ms. 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 Orthopedics and oncology were consulted. With progression of hospital course General Surgery was officially consulted, eventually had excisional debridement of sacral and left lateral lower extremity wounds performed on 12/27/24, infectious disease was consulted due to sacral osteomyelitis, initially orthopedics was consulted who recommended general surgery consult, urology consulted due to chronic indwelling Reid considering patient being catheter dependent. With the progression of hospital course patient also had PICC line placement due to 2 sets of positive blood cultures and cardiology was consulted for THOMAS to evaluate heart for possible vegetations and rule out bacterial endocarditis. #Coccygeal osteomyeltiis #Staph hominis bacteremia, on 2 consecutive blood cultures #Stage IV sacral ulcer #Severe PAD, s/p RLE BKA + LLE 3rd digit amputation #Suspicious vegetation on Port-A-Cath on right atrium Patient originally admitted for coccygeal osteomyelitis, general surgery was consulted eventually had excisional debridement of sacral ulcer and left lower extremity wounds on 12/27/2024. Patient had 2 sets of blood cultures positive for Staph hominis, initial set positive for 2/2, follow-up set positive for 1/2. Infectious diseases on board, patient had PICC line placed for IV antibiotics. CT abdomen pelvis 12/25/2024 shows Large soft tissue ulceration in the posterior lower back with osteomyelitis coccygeal segments. Cardiology consulted for THOMAS to further rule out endocarditis. Patient is currently on Macrobid p.o., IV vancomycin. Patient does not have any history of any CAD and denies any Stents or any previous surgeries or valve replacements. Patient otherwise states that she never followed up with a safety associate. TTE 12/27/2024 shows LV size and function normal with an estimated EF of 55 to 60%. Diastolic dysfunction stage I. Normal RV size and function with normal RVSP of 25 mmHg. Mild TR. Moderate aortic valve sclerosis with possible mild stenosis. V-max is only 2.2- 2.3 m/s mean gradient is 11 mmHg but valve area is 1.2 cm?. Mild MAC along with mild thickening of the mitral leaflets along with mild MR. THOMAS 01/03/2025 Small linear echodensity noted near tip of the Port-A-Cath in the right atrium suspicious for vegetation and less likely thrombus. Normal LV size and function with an EF of 60 to 65%. Normal RV size and function. Trace TR Mild MR, mild aortic valve sclerosis without stenosis. No evidence of any vegetations noted on any of the valves. No LA/ANNMARIE thrombus. No evidence of any PFO or ASD. Bubble study negative Plan: -Recommend following up with IR to replace Port-A-Cath due to suspicion of vegetation -Continue management per primary team -Infectious diseases consulted and following case #Catheter associated UTI #Chronic reid #Microscopic hematuria Ceftriaxone 2 g IV daily (12/25-12/29) Urine culture 12/27: ESBL E. coli Currently on p.o. nitrofurantoin and IV Vancomycin. #Hx of endometrial CA s/p hysterectomy + BSO in 2017, s/p radiation + chemotherapy 2016?2021 CT A/P showed 3.1 cm heterogeneously enhancing nodular mass adjacent to superior aspect of the urinary bladder, suspicious for neoplasm ? Oncology consulted, appreciate recommendations ? Recommended urology consult and cystoscopy with biopsy ? Urology consulted, appreciate recommendations ? States that currently not safe to undergo cystoscopy ? Follow-up urine cytology #Type 2 diabetes mellitus A1c 7.6%. Management per primary team, recommend strict glycemic control, blood sugar while inpatient in the range of 140-180. #Hyperlipidemia On home atorvastatin 40 mg p.o. daily #Normocytic anemia, secondary to #Iron deficiency Normocytic anemia Hb 9.4 MCV 89. Iron panel: Iron 23, TIBC 601, iron saturation 3%, unsaturated iron binding 578 recommend IV iron infusions, ferric gluconate for 5 days #Abdominal pain #Non-anion gap metabolic acidosis in setting of ileostomy, resolved Thank you for the consult and allowing to participate in the care of the patient. Cardiology will continue to follow. Case discussed with Attending Dr. Travis. Carrillo Florentino PGY1 Attending Provider Attestation/Addendum I have personally seen and examined the patient separately on the above date of service and discussed the plan of care with the resident. I reviewed the resident Dr. Carrillo Florentino consultation progress note and agree with the resident findings and plan in the note above and have also edited the documentation to reflect my findings and plan. Jeovanny Travis M.D. Interventional Cardiology
--- NOTE | 2025-01-04 10:15 | ESPR_ITS ---
<Statement entered by Anjel Blancas MD - 01/04/25 20:53> Patient was seen and examined at the bedside. No acute overnight events were reported. She endorses abdominal pain on multiple agents. Patient had a vegetation near Port-A-Cath in the right atrium. ID specialist recommended to keep the Port-A-Cath and continue with vancomycin. He will likely see the patient tomorrow morning. Labs were stable showing hemoglobin 7.9. Blood sugars were mildly elevated. Continuing pain management as needed. Patient will need 6 weeks of antibiotic for GPC bacteremia. All labs and orders were reviewed. I saw and examined the patient, and I agree with current management stated by Dr Britta MD,PGY1. Plan of care was discussed with the attending physician and resident physician. Disclaimer: Despite multiple revisions, due to the dictation software being used, the document bellow may not be free of grammatical errors including phonetic/typographic errors. However, this does not deter from our commitment to providing health care in the patient's best interest in mind. Dr. 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 Presented on 12/25 for recurrent leakage around Reid catheter, dysuria, and foul-smelling urine x24 hours and admitted for work-up and management of chronic Reid catheter associated UTI and coccygeal osteomyelitis (stage IV sacral ulcer). 12/26: Seen and examined at bedside in ED and on medical floor. No acute overnight events reported. Denies fever, chills, nausea, vomiting, shortness of breath, or chest pain. 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 Patient is satisfied with care but heike evaluation, noted to have dry and gangrenous lesions on heel and lateral aspect of the left lower extremity: So we will look into APS consult at this time and social director notified. Will continue ceftriaxone and doxycycline follow-up blood and urine cultures. Wound care order placed, orthopedic surgery and infectious disease consulted for osteomyelitis, and oncology consulted for bladder mass seen on imaging. Will follow-up on recommendations. 12/27: Seen and examined at bedside on medical floors. No acute overnight events reported. Denies fever, chills, N/V, SOB, or chest pain. Orthopedic surgery consulted and deferred possible LLE procedure to general surgery, who stated that given R AKA is still healing and will not pursue definitive surgical treatment of LLE. However, general surgery was able to debride sacral decubitus ulcer and packed, LLE wounds also debrided. Oncology also consulted given bladder mass seen on CT and recommended urology consult for cystoscopy with biopsy. Thus, consult placed and urologist contacted regarding case and plans to see patient tomorrow after urine cytology obtained. Per ID, given positive 2/2 blood cultures with GPC, will obtain another set of blood cultures and doxycycline DC'd and switched to vancomycin. Echo also ordered. Patient's sister, Mayra, at bedside and updated regarding current plans and management. 12/28: Seen and examined at bedside on medical floors. No acute overnight events reported. No fevers overnight and WBC remained stable. Second round of blood cultures noted to be positive in 1 of 2 bottles for GPC. Will send second set of blood cultures tomorrow. Echo obtained and showed no signs of vegetations. Urology evaluated patient and deemed that given GPC bacteremia that is not safe to undergo cystoscopy. MRSA nares positive and urine culture growing GNR, ID to follow. 12/29: Seen and examined at bedside on medical floors. No acute overnight events reported. No fevers overnight and WBC continues to remain stable. Patient endorses abdominal pain but is chronic and states that she has experienced this at home. Will restart patient's home methocarbamol. 12/30: Seen and examined at bedside on medical floors. No acute overnight events reported. No fevers overnight and WBC stable and within normal limits. Continues to endorse abdominal pain despite resuming methocarbamol and will start on simethicone to see if it helps relieve patient symptoms. Spoke to patient's sister regarding possible PICC line placement as she is POA and patient prefers to have sister around to make medical decisions. Plan to have sister come tomorrow at 10 AM and will have discussion then. 12/31: Seen and examined at bedside on medical floors. No acute overnight events reported. Spoke to patient and sister at bedside regarding PICC line placement as well as THOMAS that was recommended by infectious disease due to blood cultures resulting the same species. Risks, benefits, and options discussed at length and both were in agreement for PICC line placement as well as THOMAS. 01/01: Seen and examined at bedside on medical floors. No acute overnight events reported. She continues to endorse abdominal pain that has not been relieved by simethicone or methocarbamol. Will consult dietitian to see if we can optimize her diet. Otherwise, status post placement of PICC line and tolerated well and plan for THOMAS on Friday. 01/03: Seen and examined at bedside on medical floors. No acute overnight events reported. Naloxone and Tylenol added for abdominal pain but still no relief. Denies shortness of breath, chest pain, or N/V overnight. Otherwise, THOMAS scheduled in afternoon and will follow-up on results to determine antibiotic course. 01/04: Seen and examined at bedside on medical floors. No acute overnight events reported. Continues to have abdominal pain despite starting multiple agents. Underwent THOMAS yesterday and tolerated well. Results showed possible vegetation near Port-A-Cath tip in right atrium. Spoke to infectious disease who stated to be Port-A-Cath and for the time being and continue current management. Exam Vital Signs Temp Pulse Resp BP Pulse Ox O2 Del Method O2 Flow Rate 97.1 F 91 18 161/63 H 98 Room Air 3 01/04/25 08:00 01/04/25 08:00 01/04/25 08:00 01/04/25 08:00 01/04/25 08:00 01/04/25 08:00 01/03/25 13:20 Narrative Exam General: AOx3, laying comfortably on bed, able to speak full sentences HEENT: NC/AT, mucous membranes moist, bilateral sclera anicteric Cardiovascular: regular rate and rhythm, S1/S2 present, no murmurs appreciated Pulmonary: clear to auscultation bilaterally, no rales/rhonchi/wheezes Abdominal: epigastric abdominal pain, ileostomy noted and functional with stool, soft, non-tender, non-distended Musculoskeletal: RLE s/p AKA, LLE s/p 3rd digit amputation Skin: stage 4 sacral ulcer and LLE leions now bandaged and s/p I&D Neuro: CN II-XII intact, no focal deficits Objective Labs 01/04/25 05:13 01/04/25 05:13 Labs: Laboratory Results - last 24 hr 01/03/25 01/04/25 09:34 05:13 WBC 8.9 RBC 2.75 L Hgb 7.9 L Hct 24.8 L MCV 90 MCH 28.7 MCHC 31.9 RDW Std Deviation 42.5 Plt Count 348 D Neut % (Auto) 60 Lymph % (Auto) 26 Pepin % (Auto) 10 Eos % (Auto) 4 Baso % (Auto) 0 Neut # (Auto) 5.3 Lymph # (Auto) 2.3 Pepin # (Auto) 0.9 H Eos # (Auto) 0.3 Baso # (Auto) 0.0 Immature Gran # (Auto) 0.03 H Absolute Nucleated RBC 0.00 Immature Gran % 0 Nucleated RBC % 0 Sodium 134 L Potassium 3.7 Chloride 103 Carbon Dioxide 23.0 Anion Gap 8 BUN 9 Creatinine 0.7 Estim Creat Clear Calc 69.2 eGFR > 60 BUN/Creatinine Ratio 13 Glucose 268 H D Calculated Osmolality 275 Calcium 8.6 Corrected Calcium 9.3 Phosphorus 2.8 Magnesium 1.5 L Total Bilirubin < 0.2 L AST 12 ALT < 7 L Alkaline Phosphatase 90 Total Protein 6.3 Albumin 3.1 L Globulin 3.2 Albumin/Globulin Ratio 1.0 L Vancomycin Trough 19.4 H Quality Measures Quality Measures VTE prophylaxis (Lovenox on hold ) Advance care planning discussed with:: patient Assessment & Plan Assessment Current Active Medications: Generic Name Dose Route Start Last Admin Trade Name Freq PRN Reason Stop Dose Admin Acetaminophen 650 mg 01/02/25 11:40 Acetaminophen 325 Mg Tablet PO 02/01/25 11:39 Q4HR PRN PAIN SCALE 1-3 (mild Acetaminophen 1,000 mg 01/02/25 11:41 Acetaminophen 500 Mg Tablet PO 01/25/25 05:20 Q6H PRN Fever >100 Al Hydrox/Mg Hydrox/Simethicone 30 ml 01/02/25 10:55 01/02/25 11:59 Mg Hyd/Al Hyd/Ashley (Maalox Reg) Susp 30 Ml Udc PO 02/01/25 10:54 30 ml Q4HR PRN Administration UPSET STOMACH/INDIGESTION Atorvastatin Calcium 40 mg 12/30/24 21:00 01/03/25 20:50 Atorvastatin Calcium 20 Mg Tablet PO 01/29/25 20:59 Not Given HS DEWAYNE Calamine 0 ml 12/28/24 14:44 Calamine Lotion 120 Ml Btl TOP 01/27/25 14:43 UD PRN ITCHING Collagenase 0 gm 01/04/25 21:00 Collagenase Oint 30 Gm Tube TOP 02/03/25 20:59 QDAY DEWAYNE Dextrose 50 ml 12/26/24 05:44 Dextrose 50%-Water Inj 50 Ml Syringe IV 01/25/25 05:43 Q15MIN PRN BG <50 OR BG <70 & pt unresponsive Dicyclomine HCl 10 mg 01/02/25 15:37 01/02/25 17:05 Dicyclomine 10 Mg Capsule PO 02/01/25 15:36 10 mg QID PRN Administration ABDOMINAL CRAMPING Protocol Diphenhydramine HCl 25 mg 12/27/24 23:40 01/02/25 23:25 Diphenhydramine 25 Mg Capsule PO 01/26/25 23:39 25 mg HS DEWAYNE Administration Enoxaparin Sodium 40 mg 12/26/24 09:00 01/04/25 08:11 Enoxaparin Sod Inj 40 Mg/0.4 Ml Syringe SC 01/09/25 08:59 Not Given QDAY DEWAYNE Vancomycin/Sodium Chloride 100 mls @ 120 mls/hr 12/31/24 10:00 01/04/25 09:51 Vancomycin/Ns 500 Mg Ivpb IV 01/07/25 09:59 129 mls/hr Q12H DEWAYNE Administration Protocol Magnesium Sulfate 4 gm in 50 mls @ 12.5 mls/hr 01/04/25 08:18 01/04/25 09:52 Magnesium Sulfate Ivpb IV 01/04/25 12:17 12.5 mls/hr X1 ONE Administration Insulin Human Lispro 0 unit 12/29/24 11:25 01/04/25 08:13 Insulin Lispro (Admelog) 1 Unit/0.01 Ml Unit SC 01/25/25 07:29 4 unit AC DEWAYNE Administration Protocol Lidocaine 1 patch 01/03/25 01:50 Lidocaine 5% 1 Patch TOP 02/02/25 08:59 QDAY PRN back pain Protocol Methocarbamol 500 mg 12/30/24 09:00 01/04/25 08:14 Methocarbamol 500 Mg Tablet PO 01/29/25 08:59 500 mg BID DEWAYNE Administration Nitrofurantoin Macrocrystals 100 mg 12/29/24 13:15 01/04/25 08:14 Nitrofurantoin Macro 100 Mg Capsule PO 01/05/25 13:14 100 mg BID DEWAYNE Administration Ondansetron HCl 4 mg 12/26/24 05:21 Ondansetron Inj 2 Mg/Ml Inj 2 Ml IV 01/25/25 05:20 Q6H PRN NAUSEA OR VOMITING Protocol Pantoprazole Sodium 40 mg 01/01/25 09:00 01/04/25 08:14 Pantoprazole 40 Mg Tablet PO 01/25/25 08:59 40 mg QDAY DEWAYNE Administration Pharmacy Consult 1 each 12/27/24 09:45 Vancomycin Pharmacy To Dose 1 Each Each IV 01/26/25 09:44 QDAY PRN PROTOCOL Simethicone 80 mg 12/30/24 15:38 Simethicone 80 Mg Chew PO 01/29/25 15:37 QID PRN GAS Vitamin B Complex/Vit C/Folic Acid 1 tab 12/26/24 09:00 01/04/25 08:14 Vit B12/Vit C/Fa (Nephrovite) Tablet PO 01/25/25 08:59 1 tab QDAY DEWAYNE Administration Plan Ni Schmid is a 64-y/o female with a PMHx of endometrial carcinoma diagnosed in 2016 s/p robotic hysterectomy and bilateral salpingo-oophorectomy at [facility] in 2017, s/p brachytherapy and external beam radiation for recurrent vaginal cuff tumor in 2018 and chemotherapy until 2021 for the same, 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 Presented on 12/25 for recurrent leakage around Reid catheter, dysuria, and foul-smelling urine x24 hours and admitted for work-up and management of chronic Reid catheter associated UTI and coccygeal osteomyelitis (stage IV sacral ulcer). #Coccygeal osteomyeltiis #Staph hominis bacteremia #Stage IV sacral ulcer #Severe PAD, s/p RLE BKA + LLE 3rd digit amputation Echo on 12/27 without signs of vegetations. EF 55 to 60% with normal LV size and function, stage I diastolic dysfunction. Blood cultures 12/25: 2/2 bottles positive for Staph hominis Blood cultures 12/27: 1/2 bottles positive for Staph hominis Blood cultures 12/29: NGTD S/p debridement of sacral ulcer and LLE wounds on 12/27 THOMAS on 01/03: Possible vegetation near tip of Port-A-Cath in right atrium ? Vancomycin IV BID (12/27-) ? Status-post PICC line placement 12/31 ? Infectious disease following, appreciate recommendations ? Referral to wound care ? Vitamin B complex, vitamin C, folic acid tablets PO daily #Catheter associated UTI #Chronic reid #Microscopic hematuria Ceftriaxone 2 g IV daily (12/25-12/29) Urine culture 12/27: ESBL E. coli ? Nitrofurantoin 100 mg p.o. twice daily (12/29-) #Hx of endometrial CA s/p hysterectomy + BSO in 2016, s/p radiation + chemotherapy 2016?2021 CT A/P showed 3.1 cm heterogeneously enhancing nodular mass adjacent to superior aspect of the urinary bladder, suspicious for neoplasm ? Oncology consulted, appreciate recommendations ? Recommended urology consult and cystoscopy with biopsy ? Urology consulted, appreciate recommendations ? States that currently not safe to undergo cystoscopy ? Follow-up urine cytology #Type 2 diabetes mellitus A1c 7.6%. ? Step 3 SSI with Accu-Checks #Hyperlipidemia ? Home Atorvastatin 40 mg p.o. daily #Normocytic anemia, secondary to #Iron deficiency Normocytic anemia Hb 9.4 MCV 89. Iron panel: Iron 23, TIBC 601, iron saturation 3%, unsaturated iron binding 578 #Abdominal pain ? Home methocarbamol 500 mg p.o. twice daily ? Simethicone 80 mg PO QID PRN ? Added Maalox and Tylenol as needed ? Added dicyclomine ? Registered dietitian referral: low fiber diet #Non-anion gap metabolic acidosis in setting of ileostomy, resolved Antibiotics: Vancomycin 12/27- Macrobid 12/29- Ceftriaxone 12/25-12/29 Doxycycline 12/26-12/27 Hospital management: Disposition: osteomyelitis, ESBL E. coli, Staph hominis bacteremia; ID following Fluids: none Diet: carbohydrate consistent low Lines: PIV DVT prophylaxis: enoxaparin SC daily GI prophylaxis: pantoprazole CODE STATUS: limited code, no chest compressions ----- Plan discussed with attending physician Dr. Kitchen and senior resident physician Dr. Magalis Callejas MD PGY-1 Internal Medicine Attending Provider Attestation/Addendum I have discussed and was present for the essential components of the history, physical examination, diagnosis, and treatment plan with the resident. I agree with the patient's care as documented by the resident and amended herein by me. Israel Kitchen, DO. Patient seen and evaluated this AM. Vital signs stable, patient afebrile overnight, labs largely unremarkable, hemoglobin stable 7.9 today. Blood cultures on 12/26 demonstrating MDR Staph hominis, repeat on 12/27 demonstrating Staph hominis in the aerobic bottle from 1 set of cultures, blood cultures on 12/29 demonstrating NGTD. Urine culture on 12/27 demonstrating ESBL E. coli. The patient did undergo a THOMAS on 01/03 for bacteremia and endocarditis rule out which demonstrated a small linear echodensity noted near the tip of the Port-A-Cath in the right atrium which was noted to be suspicious for vegetation less likely a thrombus. Otherwise EF was 60 to 65% with normal LV size and function. The patient does have a PICC line placed and has a Port-A-Cath also placed, per infectious disease recommendations, we will not remove the Port-A-Cath at this time, will await his final recommendations. Will continue vancomycin for the patient's bacteremia and Macrobid for the ESBL E. coli urinary tract infection and await further recommendations from infectious disease which we appreciate. Will continue to follow-up with culture results and monitor closely. Although this document has been carefully reviewed, there may still be some phonetic and other typographical errors. These errors are purely grammatical due to imperfections in the software program and should not be construed in any way to compromise the substance of the patient's medical care during this visit.
[2025-01-04 12:00] VITALS: BP 152/49; PULSE 87; RESP 18; TEMP 36.6; O2SAT 99
[2025-01-04] MEDS: oxyCODONE/APAP 5/325 TABLET 1 TAB PO ×2 (12:25→21:37)
[2025-01-04] MEDS: MG HYD/AL HYD/SIME (Maalox Reg) SUSP 30 ML UDC PO (12:25)
[2025-01-04 16:00] VITALS: BP 142/62; PULSE 82; RESP 17; TEMP 36.3; O2SAT 99
[2025-01-04 20:00] VITALS: BP 141/72; PULSE 80; RESP 17; TEMP 36.2; O2SAT 99
[2025-01-04] MEDS: DiphenhydrAMINE 25 MG CAPSULE PO (21:16)
[2025-01-04] MEDS: COLLAGENASE OINT 30 GM TUBE TOP (22:30)
[2025-01-05] VITALS: BP 153/67; PULSE 83; RESP 17; TEMP 36.2; O2SAT 99
[2025-01-05 04:00] VITALS: BP 153/69; PULSE 78; RESP 17; TEMP 36.3; O2SAT 99
[2025-01-05] MEDS: oxyCODONE/APAP 5/325 TABLET 1 TAB PO ×3 (04:14→21:45)
[2025-01-05 06:16] LABS: Basophils % (Auto) 0 % (0-2.5); Eosinophils # (Auto) 0.6 Thou/mm3 (0.0-0.5); Eosinophils % (Auto) 7 % (0-10); Hematocrit 24.8 % (36.0-46.0); Immature Granulocytes % (Auto) 0 % (0-0); Immature Granulocytes Auto 0.03 Thou/mm3 (0.00-0.00); Lymphocytes # (Auto) 2.5 Thou/mm3 (1.0-4.8); Lymphocytes % (Auto) 28 % (10-50); Mean Corpuscular HGB Conc 33.1 g/dl (31.0-37.0); Mean Corpuscular Hemoglobin 29.2 pg (25.0-35.0); Mean Corpuscular Volume 88 fL (80-100); Monocytes # (Auto) 0.8 Thou/mm3 (0.0-0.8); Monocytes % (Auto) 9 % (0-12); Neutrophils # (Auto) 4.9 Thou/mm3 (1.8-7.7); Neutrophils % (Auto) 55 % (37-80); Nucleated Red Blood Cell % 0 /100 WBC (0); Platelet Count 336 Thou/mm3 (140-440); RDW Standard Deviation 41.4 fL (36.4-46.3); Red Blood Count 2.81 Miln/mm3 (4.00-5.20); White Blood Count 8.9 Thou/mm3 (3.6-11.0)
[2025-01-05 06:27] LABS: Hemoglobin 8.2 g/dL (12.0-16.0)
[2025-01-05 07:13] LABS: Alanine Aminotransferase 8 U/L (10-49); Albumin, Serum 3.2 gm/dL (3.4-4.8); Alkaline Phosphatase 74 U/L (46-116); Anion Gap 7 (7-16); Aspartate Amino Transferase 12 U/L (0-34); BUN/Creatinine Ratio 12 Ratio (12-20); Bilirubin,Total < 0.2 mg/dL (0.3-1.2); Blood Urea Nitrogen 7 mg/dL (9-23); Calcium 8.7 mg/dL (8.3-10.6); Calcium (Corrected) 9.3 mg/dL (8.5-10.1); Carbon Dioxide 23.7 mMol/L (20.0-31.0); Chloride 102 mMol/L (98-107); Creatinine (Component) 0.6 mg/dL (0.6-1.3); Estimated Creatinine Clearance 80.7 mL/min (>60); Globulin 3.1 gm/dL (2.3-3.5); Glucose 201 mg/dL (74-106); Osmolality,Calculated 270 (275-295); Phosphorous 2.6 mg/dL (2.4-5.1); Potassium 3.9 mMol/L (3.4-5.1); Sodium 133 mMol/L (136-145); Total Protein 6.3 gm/dL (5.7-8.2); eGFR > 60 See Note
[2025-01-05] MEDS: ENOXAPARIN SOD INJ 40 MG/0.4 ML SYRINGE SC (07:59)
[2025-01-05] MEDS: INSULIN LISPRO (AdmeLOG) 1 UNIT/0.01 ML UNIT SC ×3 (07:59→17:14)
[2025-01-05 08:00] VITALS: BP 138/55; PULSE 85; RESP 18; TEMP 36.4; O2SAT 99
[2025-01-05] MEDS: COLLAGENASE OINT 30 GM TUBE TOP (08:00)
[2025-01-05] MEDS: VIT B12/Vit C/FA (Nephrovite) TABLET 1 TAB PO (08:00)
[2025-01-05] MEDS: methocarbamoL 500 MG TABLET PO ×2 (08:00→21:38)
[2025-01-05] MEDS: PANTOPRAZOLE 40 MG TABLET PO (08:00)
[2025-01-05] MEDS: NITROFURANTOIN MACRO 100 MG CAPSULE PO (08:00)
--- NOTE | 2025-01-05 10:15 | ESPR_ITS ---
Documentation for date of: 01/05/25 Subjective Subjective Interval history: Patient seen and examined at bedside. No fevers overnight, patient is stable. States she is doing okay. Currently on IV antibiotics, ID is following Exam Vital Signs Temp Pulse Resp BP Pulse Ox O2 Del Method O2 Flow Rate 97.6 F 85 18 138/55 H 99 Room Air 3 01/05/25 08:00 01/05/25 08:00 01/05/25 08:00 01/05/25 08:00 01/05/25 08:00 01/05/25 04:00 01/03/25 13:20 Narrative Exam General: AOx3, laying comfortably on bed, able to speak full sentences HEENT: NC/AT, mucous membranes moist, bilateral sclera anicteric Cardiovascular: regular rate and rhythm, S1/S2 present, no murmurs appreciated Pulmonary: clear to auscultation bilaterally, no rales/rhonchi/wheezes Abdominal: epigastric abdominal pain, ileostomy noted and functional with stool, soft, non-tender, non-distended Musculoskeletal: RLE s/p AKA, LLE s/p 3rd digit amputation Skin: stage 4 sacral ulcer and LLE leions now bandaged and s/p I&D Neuro: CN II-XII intact, no focal deficits Objective Labs 01/05/25 05:58 01/05/25 05:58 Labs: Laboratory Results - last 24 hr 01/05/25 05:58 WBC 8.9 RBC 2.81 L Hgb 8.2 L Hct 24.8 L MCV 88 MCH 29.2 MCHC 33.1 RDW Std Deviation 41.4 Plt Count 336 Neut % (Auto) 55 Lymph % (Auto) 28 [place] % (Auto) 9 Eos % (Auto) 7 Baso % (Auto) 0 Neut # (Auto) 4.9 Lymph # (Auto) 2.5 [place] # (Auto) 0.8 Eos # (Auto) 0.6 H Baso # (Auto) 0.0 Immature Gran # (Auto) 0.03 H Absolute Nucleated RBC 0.00 Immature Gran % 0 Nucleated RBC % 0 Sodium 133 L Potassium 3.9 Chloride 102 Carbon Dioxide 23.7 Anion Gap 7 BUN 7 L Creatinine 0.6 Estim Creat Clear Calc 80.7 eGFR > 60 BUN/Creatinine Ratio 12 Glucose 201 H D Calculated Osmolality 270 L Calcium 8.7 Corrected Calcium 9.3 Phosphorus 2.6 Magnesium 2.0 Total Bilirubin < 0.2 L AST 12 ALT 8 L Alkaline Phosphatase 74 Total Protein 6.3 Albumin 3.2 L Globulin 3.1 Albumin/Globulin Ratio 1.0 L Quality Measures Quality Measures VTE prophylaxis (Lovenox on hold ) Advance care planning discussed with:: patient Assessment & Plan Assessment Current Active Medications: Generic Name Dose Route Start Last Admin Trade Name Freq PRN Reason Stop Dose Admin Acetaminophen 650 mg 01/02/25 11:40 Acetaminophen 325 Mg Tablet PO 02/01/25 11:39 Q4HR PRN PAIN SCALE 1-3 (mild Acetaminophen 1,000 mg 01/02/25 11:41 Acetaminophen 500 Mg Tablet PO 01/25/25 05:20 Q6H PRN Fever >100 Al Hydrox/Mg Hydrox/Simethicone 30 ml 01/02/25 10:55 01/04/25 12:25 Mg Hyd/Al Hyd/Ashley (Maalox Reg) Susp 30 Ml Udc PO 02/01/25 10:54 30 ml Q4HR PRN Administration UPSET STOMACH/INDIGESTION Atorvastatin Calcium 40 mg 12/30/24 21:00 01/04/25 21:36 Atorvastatin Calcium 20 Mg Tablet PO 01/29/25 20:59 Not Given HS DEWAYNE Calamine 0 ml 12/28/24 14:44 Calamine Lotion 120 Ml Btl TOP 01/27/25 14:43 UD PRN ITCHING Collagenase 0 gm 01/04/25 21:00 01/05/25 08:00 Collagenase Oint 30 Gm Tube TOP 02/03/25 20:59 1 appl QDAY DEWAYNE Administration Dextrose 50 ml 12/26/24 05:44 Dextrose 50%-Water Inj 50 Ml Syringe IV 01/25/25 05:43 Q15MIN PRN BG <50 OR BG <70 & pt unresponsive Dicyclomine HCl 10 mg 01/02/25 15:37 01/02/25 17:05 Dicyclomine 10 Mg Capsule PO 02/01/25 15:36 10 mg QID PRN Administration ABDOMINAL CRAMPING Protocol Diphenhydramine HCl 25 mg 12/27/24 23:40 01/04/25 21:16 Diphenhydramine 25 Mg Capsule PO 01/26/25 23:39 25 mg HS DEWAYNE Administration Enoxaparin Sodium 40 mg 12/26/24 09:00 03/19/25 07:59 Enoxaparin Sod Inj 40 Mg/0.4 Ml Syringe SC 01/09/25 08:59 40 mg QDAY DEWAYNE Administration Vancomycin/Sodium Chloride 100 mls @ 120 mls/hr 12/31/24 10:00 01/04/25 21:16 Vancomycin/Ns 500 Mg Ivpb IV 01/07/25 09:59 129 mls/hr Q12H DEWAYNE Administration Protocol Insulin Human Lispro 0 unit 12/29/24 11:25 01/05/25 07:59 Insulin Lispro (Admelog) 1 Unit/0.01 Ml Unit SC 01/25/25 07:29 3 unit AC DEWAYNE Administration Protocol Lidocaine 1 patch 01/03/25 01:50 Lidocaine 5% 1 Patch TOP 02/02/25 08:59 QDAY PRN back pain Protocol Methocarbamol 500 mg 12/30/24 09:00 01/05/25 08:00 Methocarbamol 500 Mg Tablet PO 01/29/25 08:59 500 mg BID DEWAYNE Administration Nitrofurantoin Macrocrystals 100 mg 12/29/24 13:15 01/05/25 08:00 Nitrofurantoin Macro 100 Mg Capsule PO 01/05/25 13:14 100 mg BID DEWAYNE Administration Ondansetron HCl 4 mg 12/26/24 05:21 Ondansetron Inj 2 Mg/Ml Inj 2 Ml IV 01/25/25 05:20 Q6H PRN NAUSEA OR VOMITING Protocol Oxycodone/Acetaminophen 1 tab 01/04/25 10:48 01/05/25 04:14 Oxycodone/Apap 5/325 Tablet PO 01/09/25 10:47 1 tab Q6HR PRN Administration PAIN SCALE 4-10(Mod-Sev Pantoprazole Sodium 40 mg 01/01/25 09:00 01/05/25 08:00 Pantoprazole 40 Mg Tablet PO 01/25/25 08:59 40 mg QDAY DEWAYNE Administration Pharmacy Consult 1 each 12/27/24 09:45 Vancomycin Pharmacy To Dose 1 Each Each IV 01/26/25 09:44 QDAY PRN PROTOCOL Simethicone 80 mg 12/30/24 15:38 Simethicone 80 Mg Chew PO 01/29/25 15:37 QID PRN GAS Vitamin B Complex/Vit C/Folic Acid 1 tab 12/26/24 09:00 01/05/25 08:00 Vit B12/Vit C/Fa (Nephrovite) Tablet PO 01/25/25 08:59 1 tab QDAY DEWAYNE Administration Plan Assessment and Plan: Summary: Ms. 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 Orthopedics and oncology were consulted. With progression of hospital course General Surgery was officially consulted, eventually had excisional debridement of sacral and left lateral lower extremity wounds performed on 12/27/24, infectious disease was consulted due to sacral osteomyelitis, initially orthopedics was consulted who recommended general surgery consult, urology consulted due to chronic indwelling Reid considering patient being catheter dependent. With the progression of hospital course patient also had PICC line placement due to 2 sets of positive blood cultures and cardiology was consulted for THOMAS to evaluate heart for possible vegetations and rule out bacterial endocarditis. #Coccygeal osteomyeltiis #Staph hominis bacteremia, on 2 consecutive blood cultures #Stage IV sacral ulcer #Severe PAD, s/p RLE BKA + LLE 3rd digit amputation #Suspicious vegetation on Port-A-Cath on right atrium Patient originally admitted for coccygeal osteomyelitis, general surgery was consulted eventually had excisional debridement of sacral ulcer and left lower extremity wounds on 12/27/2024. Patient had 2 sets of blood cultures positive for Staph hominis, initial set positive for 2/2, follow-up set positive for 1/2. Infectious diseases on board, patient had PICC line placed for IV antibiotics. CT abdomen pelvis 12/25/2024 shows Large soft tissue ulceration in the posterior lower back with osteomyelitis coccygeal segments. Cardiology consulted for THOMAS to further rule out endocarditis. Patient is currently on Macrobid p.o., IV vancomycin. Patient does not have any history of any CAD and denies any Stents or any previous surgeries or valve replacements. 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 TTE 12/27/2024 shows LV size and function normal with an estimated EF of 55 to 60%. Diastolic dysfunction stage I. Normal RV size and function with normal RVSP of 25 mmHg. Mild TR. Moderate aortic valve sclerosis with possible mild stenosis. V-max is only 2.2- 2.3 m/s mean gradient is 11 mmHg but valve area is 1.2 cm?. Mild MAC along with mild thickening of the mitral leaflets along with mild MR. THOMAS 01/03/2025 Small linear echodensity noted near tip of the Port-A-Cath in the right atrium suspicious for vegetation and less likely thrombus. Normal LV size and function with an EF of 60 to 65%. Normal RV size and function. Trace TR Mild MR, mild aortic valve sclerosis without stenosis. No evidence of any vegetations noted on any of the valves. No LA/ANNMARIE thrombus. No evidence of any PFO or ASD. Bubble study negative Plan: -Recommend following up with IR to replace Port-A-Cath due to suspicion of vegetation -Continue management per primary team -Infectious diseases consulted and following case #Catheter associated UTI #Chronic reid #Microscopic hematuria Ceftriaxone 2 g IV daily (12/25-12/29) Urine culture 12/27: ESBL E. coli Currently on p.o. nitrofurantoin and IV Vancomycin. #Hx of endometrial CA s/p hysterectomy + BSO in 2017, s/p radiation + chemotherapy 2016?2021 CT A/P showed 3.1 cm heterogeneously enhancing nodular mass adjacent to superior aspect of the urinary bladder, suspicious for neoplasm ? Oncology consulted, appreciate recommendations ? Recommended urology consult and cystoscopy with biopsy ? Urology consulted, appreciate recommendations ? States that currently not safe to undergo cystoscopy ? Follow-up urine cytology #Type 2 diabetes mellitus A1c 7.6%. Management per primary team, recommend strict glycemic control, blood sugar while inpatient in the range of 140-180. #Hyperlipidemia On home atorvastatin 40 mg p.o. daily #Normocytic anemia, secondary to #Iron deficiency Normocytic anemia Hb 9.4 MCV 89. Iron panel: Iron 23, TIBC 601, iron saturation 3%, unsaturated iron binding 578 recommend IV iron infusions, ferric gluconate for 5 days #Abdominal pain #Non-anion gap metabolic acidosis in setting of ileostomy, resolved Thank you for the consult and allowing to participate in the care of the patient. Cardiology will continue to follow. Case discussed with Attending Dr. Travis. Carrillo Florentino PGY1 Attending Provider Attestation/Addendum I have personally seen and examined the patient separately on the above date of service and discussed the plan of care with the resident. I reviewed the resident Dr. Carrillo Florentino consultation progress note and agree with the resident findings and plan in the note above and have also edited the documentation to reflect my findings and plan. Jeovanny Travis M.D. Interventional Cardiology
[2025-01-05] MEDS: VANCOMYCIN/NS 500 MG IVPB 100 ML 129 MG IV ×2 (10:29→21:37)
--- NOTE | 2025-01-05 10:38 | PD.IDPROG ---
Subjective Subjective Interval history: changed to ertapenem 1 gm iv daily thru 02/09 approx. 6 weeks overall from admit. has finished the macrobid. stopped the vanco. no bx noted of sacral area to verify that this is not malignant. Exam Vital Signs Temp Pulse Resp BP Pulse Ox O2 Del Method O2 Flow Rate 97.6 F 85 18 138/55 H 99 Room Air 3 01/05/25 08:00 01/05/25 08:00 01/05/25 08:00 01/05/25 08:00 01/05/25 08:00 01/05/25 04:00 01/03/25 13:20 Narrative Exam limited visit Objective - Internal Medicine Labs 01/05/25 05:58 01/05/25 05:58 Labs: Laboratory Results - last 24 hr 01/05/25 05:58 WBC 8.9 RBC 2.81 L Hgb 8.2 L Hct 24.8 L MCV 88 MCH 29.2 MCHC 33.1 RDW Std Deviation 41.4 Plt Count 336 Neut % (Auto) 55 Lymph % (Auto) 28 [place] % (Auto) 9 Eos % (Auto) 7 Baso % (Auto) 0 Neut # (Auto) 4.9 Lymph # (Auto) 2.5 [place] # (Auto) 0.8 Eos # (Auto) 0.6 H Baso # (Auto) 0.0 Immature Gran # (Auto) 0.03 H Absolute Nucleated RBC 0.00 Immature Gran % 0 Nucleated RBC % 0 Sodium 133 L Potassium 3.9 Chloride 102 Carbon Dioxide 23.7 Anion Gap 7 BUN 7 L Creatinine 0.6 Estim Creat Clear Calc 80.7 eGFR > 60 BUN/Creatinine Ratio 12 Glucose 201 H D Calculated Osmolality 270 L Calcium 8.7 Corrected Calcium 9.3 Phosphorus 2.6 Magnesium 2.0 Total Bilirubin < 0.2 L AST 12 ALT 8 L Alkaline Phosphatase 74 Total Protein 6.3 Albumin 3.2 L Globulin 3.1 Albumin/Globulin Ratio 1.0 L Assessment & Plan A&P Narrative pos urine cx and ua in pt with hx of fistulous connection can not r/o asb. creat ok possible sacral osteo. no bx to r/o malignancy in the area of concern neg transthoracic echo noted hep c neg procal neg 12/25. ok to treat for 6 weeks with appropriate abx, but du's are not improved with abx but with avoidance of pressure. changed gnr coverage to macrobid on wed 12/29/24 changed to ertapenem/vanco 12/1924 she has a rt sided port that should be noted. so if teri neg, then this may be iv related bacteremia no matter what abx used, need to avoid pressure to the du area. organism in urine unlikely to be same as in bc or in sacral wound. get a biopsy to r/o ca as a cause of the du as she is young at only 64 yoa. we need to be accurate with our dx as much as possible. if teri pos, will treat for endocarditis. coag neg can cause be, but do so infrequently, will see again prn Time Spent With Patient Time: Total time spent is greater than 50% in coordination of care (as documented) at patient's floor/unit and/or counseling patient:
--- NOTE | 2025-01-05 10:44 | PD.ADDPROG ---
Addendum Progress Note Addendum Date of report being addended: 01/05/25 Narrative: ok to remove port as part of rx.
--- NOTE | 2025-01-05 11:42 | ESPR_ITS ---
<Statement entered by Anjel Blancas MD - 01/05/25 13:44> Patient was seen and examined at the bedside. No acute overnight events were reported. ID specialist recommended to remove Reid cath and start ertapenem for total 6 weeks until February 09 1 g once daily to complete course for GPC. Hemoglobin around 8.2 we will closely monitor. Other labs were unremarkable. Likely remove Port-A-Cath tomorrow and update the social workers. All labs and orders were reviewed. I saw and examined the patient, and I agree with current management stated by Dr Britta MD,PGY1. Plan of care was discussed with the attending physician and resident physician. Disclaimer: Despite multiple revisions, due to the dictation software being used, the document bellow may not be free of grammatical errors including phonetic/typographic errors. However, this does not deter from our commitment to providing health care in the patient's best interest in mind. Dr. 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 Presented on 12/25 for recurrent leakage around Reid catheter, dysuria, and foul-smelling urine x24 hours and admitted for work-up and management of chronic Reid catheter associated UTI and coccygeal osteomyelitis (stage IV sacral ulcer). 12/26: Seen and examined at bedside in ED and on medical floor. No acute overnight events reported. Denies fever, chills, nausea, vomiting, shortness of breath, or chest pain. States that she has a display artist who sees patient after being discharged from [facility] approximately 3 weeks ago. Patient is satisfied with care but heike evaluation, noted to have dry and gangrenous lesions on heel and lateral aspect of the left lower extremity: So we will look into APS consult at this time and rn social work notified. Will continue ceftriaxone and doxycycline follow-up blood and urine cultures. Wound care order placed, orthopedic surgery and infectious disease consulted for osteomyelitis, and oncology consulted for bladder mass seen on imaging. Will follow-up on recommendations. 12/27: Seen and examined at bedside on medical floors. No acute overnight events reported. Denies fever, chills, N/V, SOB, or chest pain. Orthopedic surgery consulted and deferred possible LLE procedure to general surgery, who stated that given R AKA is still healing and will not pursue definitive surgical treatment of LLE. However, general surgery was able to debride sacral decubitus ulcer and packed, LLE wounds also debrided. Oncology also consulted given bladder mass seen on CT and recommended urology consult for cystoscopy with biopsy. Thus, consult placed and urologist contacted regarding case and plans to see patient tomorrow after urine cytology obtained. Per ID, given positive 2/2 blood cultures with GPC, will obtain another set of blood cultures and doxycycline DC'd and switched to vancomycin. Echo also ordered. Patient's sister, Mayra, at bedside and updated regarding current plans and management. 12/28: Seen and examined at bedside on medical floors. No acute overnight events reported. No fevers overnight and WBC remained stable. Second round of blood cultures noted to be positive in 1 of 2 bottles for GPC. Will send second set of blood cultures tomorrow. Echo obtained and showed no signs of vegetations. Urology evaluated patient and deemed that given GPC bacteremia that is not safe to undergo cystoscopy. MRSA nares positive and urine culture growing GNR, ID to follow. 12/29: Seen and examined at bedside on medical floors. No acute overnight events reported. No fevers overnight and WBC continues to remain stable. Patient endorses abdominal pain but is chronic and states that she has experienced this at home. Will restart patient's home methocarbamol. 12/30: Seen and examined at bedside on medical floors. No acute overnight events reported. No fevers overnight and WBC stable and within normal limits. Continues to endorse abdominal pain despite resuming methocarbamol and will start on simethicone to see if it helps relieve patient symptoms. Spoke to patient's sister regarding possible PICC line placement as she is POA and patient prefers to have sister around to make medical decisions. Plan to have sister come tomorrow at 10 AM and will have discussion then. 12/31: Seen and examined at bedside on medical floors. No acute overnight events reported. Spoke to patient and sister at bedside regarding PICC line placement as well as THOMAS that was recommended by infectious disease due to blood cultures resulting the same species. Risks, benefits, and options discussed at length and both were in agreement for PICC line placement as well as THOMAS. 01/01: Seen and examined at bedside on medical floors. No acute overnight events reported. She continues to endorse abdominal pain that has not been relieved by simethicone or methocarbamol. Will consult dietitian to see if we can optimize her diet. Otherwise, status post placement of PICC line and tolerated well and plan for THOMAS on Friday. 01/03: Seen and examined at bedside on medical floors. No acute overnight events reported. Naloxone and Tylenol added for abdominal pain but still no relief. Denies shortness of breath, chest pain, or N/V overnight. Otherwise, THOMAS scheduled in afternoon and will follow-up on results to determine antibiotic course. 01/04: Seen and examined at bedside on medical floors. No acute overnight events reported. Continues to have abdominal pain despite starting multiple agents. Underwent THOMAS yesterday and tolerated well. Results showed possible vegetation near Port-A-Cath tip in right atrium. Spoke to infectious disease who stated to be Port-A-Cath and for the time being and continue current management. 01/05: Seen and examined at bedside on medical floors. No acute overnight events reported. States that her abdominal pain is improved today. Denies any fever, chills, N/V, shortness of breath, or chest discomfort. Sister was called and updated regarding future plans, including removal of Port-A-Cath and IV antibiotics until 02/09. Exam Vital Signs Temp Pulse Resp BP Pulse Ox O2 Del Method O2 Flow Rate 97.6 F 85 18 138/55 H 99 Room Air 3 01/05/25 08:00 01/05/25 08:00 01/05/25 08:00 01/05/25 08:00 01/05/25 08:00 01/05/25 04:00 01/03/25 13:20 Narrative Exam General: AOx3, laying comfortably on bed, able to speak full sentences HEENT: NC/AT, mucous membranes moist, bilateral sclera anicteric Cardiovascular: regular rate and rhythm, S1/S2 present, no murmurs appreciated Pulmonary: clear to auscultation bilaterally, no rales/rhonchi/wheezes Abdominal: epigastric abdominal pain, ileostomy noted and functional with stool, soft, non-tender, non-distended Musculoskeletal: RLE s/p AKA, LLE s/p 3rd digit amputation Skin: stage 4 sacral ulcer and LLE leions now bandaged and s/p I&D Neuro: CN II-XII intact, no focal deficits Objective Labs 01/05/25 05:58 01/05/25 05:58 Labs: Laboratory Results - last 24 hr 01/05/25 05:58 WBC 8.9 RBC 2.81 L Hgb 8.2 L Hct 24.8 L MCV 88 MCH 29.2 MCHC 33.1 RDW Std Deviation 41.4 Plt Count 336 Neut % (Auto) 55 Lymph % (Auto) 28 Vilas % (Auto) 9 Eos % (Auto) 7 Baso % (Auto) 0 Neut # (Auto) 4.9 Lymph # (Auto) 2.5 Vilas # (Auto) 0.8 Eos # (Auto) 0.6 H Baso # (Auto) 0.0 Immature Gran # (Auto) 0.03 H Absolute Nucleated RBC 0.00 Immature Gran % 0 Nucleated RBC % 0 Sodium 133 L Potassium 3.9 Chloride 102 Carbon Dioxide 23.7 Anion Gap 7 BUN 7 L Creatinine 0.6 Estim Creat Clear Calc 80.7 eGFR > 60 BUN/Creatinine Ratio 12 Glucose 201 H D Calculated Osmolality 270 L Calcium 8.7 Corrected Calcium 9.3 Phosphorus 2.6 Magnesium 2.0 Total Bilirubin < 0.2 L AST 12 ALT 8 L Alkaline Phosphatase 74 Total Protein 6.3 Albumin 3.2 L Globulin 3.1 Albumin/Globulin Ratio 1.0 L Quality Measures Quality Measures VTE prophylaxis (Lovenox on hold ) Advance care planning discussed with:: other Assessment & Plan Assessment Current Active Medications: Generic Name Dose Route Start Last Admin Trade Name Freq PRN Reason Stop Dose Admin Acetaminophen 650 mg 01/02/25 11:40 Acetaminophen 325 Mg Tablet PO 02/01/25 11:39 Q4HR PRN PAIN SCALE 1-3 (mild Acetaminophen 1,000 mg 01/02/25 11:41 Acetaminophen 500 Mg Tablet PO 01/25/25 05:20 Q6H PRN Fever >100 Al Hydrox/Mg Hydrox/Simethicone 30 ml 01/02/25 10:55 01/04/25 12:25 Mg Hyd/Al Hyd/Ashley (Maalox Reg) Susp 30 Ml Udc PO 02/01/25 10:54 30 ml Q4HR PRN Administration UPSET STOMACH/INDIGESTION Atorvastatin Calcium 40 mg 12/30/24 21:00 01/04/25 21:36 Atorvastatin Calcium 20 Mg Tablet PO 01/29/25 20:59 Not Given HS DEWAYNE Calamine 0 ml 12/28/24 14:44 Calamine Lotion 120 Ml Btl TOP 01/27/25 14:43 UD PRN ITCHING Collagenase 0 gm 01/04/25 21:00 01/05/25 08:00 Collagenase Oint 30 Gm Tube TOP 02/03/25 20:59 1 appl QDAY DEWAYNE Administration Dextrose 50 ml 12/26/24 05:44 Dextrose 50%-Water Inj 50 Ml Syringe IV 01/25/25 05:43 Q15MIN PRN BG <50 OR BG <70 & pt unresponsive Dicyclomine HCl 10 mg 01/02/25 15:37 01/02/25 17:05 Dicyclomine 10 Mg Capsule PO 02/01/25 15:36 10 mg QID PRN Administration ABDOMINAL CRAMPING Protocol Diphenhydramine HCl 25 mg 12/27/24 23:40 01/04/25 21:16 Diphenhydramine 25 Mg Capsule PO 01/26/25 23:39 25 mg HS DEWAYNE Administration Enoxaparin Sodium 40 mg 12/26/24 09:00 01/05/25 07:59 Enoxaparin Sod Inj 40 Mg/0.4 Ml Syringe SC 01/09/25 08:59 40 mg QDAY DEWAYNE Administration Vancomycin/Sodium Chloride 100 mls @ 120 mls/hr 12/31/24 10:00 01/05/25 10:29 Vancomycin/Ns 500 Mg Ivpb IV 01/12/25 09:59 129 mls/hr Q12H DEWAYNE Administration Protocol Ertapenem 1,000 mg/ Sodium 50 mls @ 100 mls/hr 01/05/25 11:00 Chloride IV 01/12/25 10:59 QDAY DEWAYNE Insulin Human Lispro 0 unit 12/29/24 11:25 01/05/25 07:59 Insulin Lispro (Admelog) 1 Unit/0.01 Ml Unit SC 01/25/25 07:29 3 unit AC DEWAYNE Administration Protocol Lidocaine 1 patch 01/03/25 01:50 Lidocaine 5% 1 Patch TOP 02/02/25 08:59 QDAY PRN back pain Protocol Methocarbamol 500 mg 12/30/24 09:00 01/05/25 08:00 Methocarbamol 500 Mg Tablet PO 01/29/25 08:59 500 mg BID DEWAYNE Administration Ondansetron HCl 4 mg 12/26/24 05:21 Ondansetron Inj 2 Mg/Ml Inj 2 Ml IV 01/25/25 05:20 Q6H PRN NAUSEA OR VOMITING Protocol Oxycodone/Acetaminophen 1 tab 01/04/25 10:48 01/05/25 04:14 Oxycodone/Apap 5/325 Tablet PO 01/09/25 10:47 1 tab Q6HR PRN Administration PAIN SCALE 4-10(Mod-Sev Pharmacy Consult 1 each 01/06/25 09:00 Vancomycin Pharmacy To Dose 1 Each Each IV 02/09/25 12:00 QDAY PRN CONSULT Simethicone 80 mg 12/30/24 15:38 Simethicone 80 Mg Chew PO 01/29/25 15:37 QID PRN GAS Vitamin B Complex/Vit C/Folic Acid 1 tab 12/26/24 09:00 01/05/25 08:00 Vit B12/Vit C/Fa (Nephrovite) Tablet PO 01/25/25 08:59 1 tab QDAY DEWAYNE Administration Plan Ni Schmid is a 64-y/o female with a PMHx of endometrial carcinoma diagnosed in 2016 s/p robotic hysterectomy and bilateral salpingo-oophorectomy at [facility] in 2017, s/p brachytherapy and external beam radiation for recurrent vaginal cuff tumor in 2018 and chemotherapy until 2021 for the same, 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 Presented on 12/25 for recurrent leakage around Reid catheter, dysuria, and foul-smelling urine x24 hours and admitted for work-up and management of chronic Reid catheter associated UTI and coccygeal osteomyelitis (stage IV sacral ulcer). #Coccygeal osteomyeltiis #Staph hominis bacteremia #Stage IV sacral ulcer #Severe PAD, s/p RLE BKA + LLE 3rd digit amputation Echo on 12/27 without signs of vegetations. EF 55 to 60% with normal LV size and function, stage I diastolic dysfunction. Blood cultures 12/25: 2/2 bottles positive for Staph hominis Blood cultures 12/27: 1/2 bottles positive for Staph hominis Blood cultures 12/29: NGTD S/p debridement of sacral ulcer and LLE wounds on 12/27 THOMAS on 01/03: Possible vegetation near tip of Port-A-Cath in right atrium ? Infectious disease following, appreciate recommendations ? Vancomycin changed to ertapenem 1 g IV daily through 02/09 ? Given that blood cultures negative prior to insertion of PICC line, will not exchange for new PICC line ? General Surgery consulted, plans to remove Port-A-Cath ? Referral to wound care ? Vitamin B complex, vitamin C, folic acid tablets PO daily #Catheter associated UTI #Chronic reid #Microscopic hematuria Ceftriaxone 2 g IV daily (12/25-12/29) Urine culture 12/27: ESBL E. coli. Completed coures of nitrofurantoin 100 mg p.o. twice daily (12/29-01/05). #Hx of endometrial CA s/p hysterectomy + BSO in 2016, s/p radiation + chemotherapy 2016?2021 CT A/P showed 3.1 cm heterogeneously enhancing nodular mass adjacent to superior aspect of the urinary bladder, suspicious for neoplasm ? Oncology consulted, appreciate recommendations ? Recommended urology consult and cystoscopy with biopsy ? Urology consulted, appreciate recommendations ? States that currently not safe to undergo cystoscopy ? Follow-up urine cytology #Type 2 diabetes mellitus A1c 7.6%. ? Step 3 SSI with Accu-Checks #Hyperlipidemia ? Home Atorvastatin 40 mg p.o. daily #Normocytic anemia, secondary to #Iron deficiency Normocytic anemia Hb 9.4 MCV 89. Iron panel: Iron 23, TIBC 601, iron saturation 3%, unsaturated iron binding 578 #Abdominal pain ? Home methocarbamol 500 mg p.o. twice daily ? Simethicone 80 mg PO QID PRN ? Added Maalox and Tylenol as needed ? Added dicyclomine ? Registered dietitian referral: low fiber diet #Non-anion gap metabolic acidosis in setting of ileostomy, resolved Antibiotics: Ertapenem 01/05- Vancomycin 12/27-01/05 Macrobid 12/29-01/05 Ceftriaxone 12/25-12/29 Doxycycline 12/26-12/27 Hospital management: Disposition: osteomyelitis, ESBL E. coli, Staph hominis bacteremia; ID following Fluids: none Diet: carbohydrate consistent low Lines: PIV DVT prophylaxis: enoxaparin SC daily GI prophylaxis: pantoprazole CODE STATUS: limited code, no chest compressions ----- Plan discussed with attending physician Dr. Kitchen and senior resident physician Dr. Magalis Callejas MD PGY-1 Internal Medicine Attending Provider Attestation/Addendum I have discussed and was present for the essential components of the history, physical examination, diagnosis, and treatment plan with the resident. I agree with the patient's care as documented by the resident and amended herein by me. Israel Kitchen, DO. Patient seen and evaluated this AM. Vital signs stable, patient afebrile overnight, I/O 0/2525. As noted previously, possible vegetation noted near the end of the Port-A-Cath line, patient is also bacteremic with Staph hominis. Infectious disease consulted, recommends removing the Port-A-Cath however we can keep the PICC line considering it was placed after negative blood cultures. Per infectious disease, antibiotics were switched to ertapenem which she will continue on until 09 February. Will continue to monitor closely, likely DC in 1 to 2 days pending removal of her Port-A-Cath line. Although this document has been carefully reviewed, there may still be some phonetic and other typographical errors. These errors are purely grammatical due to imperfections in the software program and should not be construed in any way to compromise the substance of the patient's medical care during this visit.
[2025-01-05 12:00] VITALS: BP 141/58; PULSE 77; RESP 18; TEMP 36.3; O2SAT 98
[2025-01-05] MEDS: ERTAPENEM INJ 1,000 MG in SODIUM CHLORIDE 0.9% (Popper) 50 ML 100 MG IV (12:23)
[2025-01-05 16:00] VITALS: BP 149/76; PULSE 82; RESP 18; TEMP 36.1; O2SAT 98
--- NOTE | 2025-01-05 17:00 | PD.SURCONS ---
HPI Consult details Consult date: 01/05/25 Reason for consultation narrative: The patient was seen in consultation because of bacteremia secondary to Port-A-Cath History of present illness: Patient has had numerous medical problem and she has been in the hospital for treatment of leg ulcers as well as ulcers over the B-K amputation and heel. Because of the bacteremia she had a transesophageal echo which showed vegetations. Therefore they asked for removal of the port. Past Medical History Past Medical History NEUROLOGIC: Negative Neurological Disorders, Alzheimer's Disease, Brain Tumor, Seizures, Amyotrophic Lateral Sclerosis (ALS/Shiloh Gehrig's) or Berman's Palsy CARDIAC: Positive Hypertension; Negative Cardiac Disorders, Myocardial Infarction, Cardiac Arrhythmia, Atrial Fibrillation, Angina, Heart Murmur, Coronary Artery Disease, Atherosclerotic Heart Disease, Peripheral Vascular Disease, Hypercholesterolemia, Aneurysm, Congestive Heart Failure, Congenital Heart Disease, Valvular Heart Disease, Rheumatic Fever, Cardiomyopathy, Edema, Pericarditis, Cellulitis, Deep Vein Thrombosis or Varicose Veins RESPIRATORY: Positive Respiratory Disorders; Negative Chronic Obstructive Pulmonary Disease (COPD), Asthma, Bronchitis, Emphysema, Pneumonia, Pulmonary Fibrosis, Cystic Fibrosis, Tuberculosis, Pulmonary Embolism, Pulmonary Edema or Sleep Apnea GASTROINTESTINAL: Positive Hemorrhoids and Gastroesophageal Reflux Disease; Negative Gastrointestinal Disorders, Hepatitis, Cirrhosis, Celiac Disease, Gall Bladder Disease, Gastrointestinal Bleed, Esophageal Varices, Olson's Esophagus, Colitis, Diverticulitis, Diverticulosis, Ulcer, Crohn's Disease, Obstructive Bowel, Hiatal Hernia or Polyps GENITOURINARY: Positive Genitourinary Disorders; Negative Renal Disease, Kidney Stones, Inguinal Hernia or Dialysis REPRODUCTIVE: Negative Endometriosis, Genital Herpes, Gonorrhea, Pelvic Inflammatory Disease, Previous Pregnancies, Syphilis or Uterine Prolapse MUSCULOSKELETAL: Negative Musculoskeletal Disorders, Muscular Dystrophy, Myasthenia Gravis, Marfan's Syndrome, Arthritis, Rheumatoid Arthritis, Osteoporosis, Gout, Scoliosis, Carpal Tunnel Syndrome, Fibromyalgia, Fractures, Degenerative Joint Disease, Osteomyelitis or Poliovirus ENT: Negative History of ENT Problems, Cataracts, Glaucoma, Blind, Retinal Detachment, Macular Degeneration, Ear Infection, Deafness or Eye Prosthesis ENDOCRINE: Positive Diabetes Mellitus Type 2; Negative Endocrine Disorders, Diabetes Mellitus Type 1, Hypoglycemia, Sims's Syndrome, Powell's Disease, Hyperthyroidism, Hypothyroidism, Parathyroid Disease, Pituitary Disease, Systemic Lupus Erythematosus, Syndrome of Inappropriate Antidiuretic Hormone (SIADH), Adrenal Disease or Graves' Disease HEMATOLOGIC: Negative Blood Disorders, Anemia, Leukemia, Hemophilia, Thalassemia or Sickle Cell Disease PSYCHO/SOCIAL: Positive Depression and Anxiety; Negative Psychiatric Problems, Schizophrenia, Recreational Drug Use, Self-Mutilation, Attention Deficit Disorder, Attention Deficit Hyperactivity Disorder, Depression or Post Traumatic Stress Disorder OTHER HISTORY: Positive Hospitalization, Falls, Blood Transfusions, Chicken Pox, Cancer and Ovarian Cancer; Negative Autoimmune Disease, Down Syndrome, Autism, Developmental Delay, Blood Transfusion Reaction, Anesthesia Reactions, Human Immunodeficiency Virus (HIV), Measles, Rubella ([place]ander Measles) or Pertussis Family History FAMILY HISTORY: Positive Family Cardiac Disorders and Family Gastrointestinal Problems; Negative Family Psychiatric Problems, Family Respiratory Disorders, Family Genitourinary Problems, Family Endocrine Disorders, Family Reproductive Disorders, Family Musculoskeletal Disorders or Family Anesthesia Reaction OTHER FAMILY HX: Denies history of cancers Surgical History SURGICAL: Positive Bowel Surgery and Hysterectomy; Negative Cardiac Surgery, Valve Replacement, Coronary Stent, Pacemaker, Angiogram, Auto Implanted Cardiovert Defib, Endocrine Surgery, Thyroidectomy, Ear Surgery, Tympanostomy Tube, Eye Surgery, Oral Surgery, Tonsillectomy, Adenoidectomy, Cochlear Implant, Corneal Transplant, Throat Surgery, Abdominal Surgery, Tracheostomy, Gastric Bypass Surgery, Gastrostomy, Penile Implant, Nephrectomy, Bladder Sling, Ureteral Stent, Transurethral Resection, Joint Replacement, of Shoulder Sx, Amputation, Knee Sx, Hip Sx, Open Reduction Internal Fixation, Arthroscopy, of Back Surgery, Neurologic Surgery, Mastectomy, Lumpectomy, Tubal Ligation, Section, Vasectomy or ESWL Social History SOCIAL: Retired from [employer] denies smoking drinking SMOKING STATUS: Never smoker SECOND HAND EXPOSURE: No Past Medical History Comments PMH COMMENT: Past medical and surgical history: ndometrial carcinoma diagnosed 2016 status post robotic hysterectomy and bilateral salpingo-oophorectomy at [facility] in 2016, status post brachytherapy and external beam radiation for recurrent vaginal cuff tumor in 2018 and chemotherapy until 2021 for the same, status post 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 Meds Home Medications and Allergies Home Medications ?Medication ?Instructions ?Recorded ?Confirmed ?Type atorvastatin 40 mg tablet 40 mg PO DAILY 04/03/22 12/29/24 History ergocalciferol (vitamin D2) 1,250 1 cap PO WMHS 04/03/22 12/29/24 History mcg (50,000 unit) capsule insulin lispro 100 unit/mL 5 unit subcut TIDACHS 04/03/22 12/29/24 History subcutaneous pen acetaminophen 325 mg tablet 650 mg PO Q6H PRN pain 12/26/24 12/29/24 History (Aminofen) ascorbic acid (vitamin C) 250 mg 250 mg PO QDAY 12/26/24 12/29/24 History tablet (Vitamin C) gabapentin 300 mg capsule 300 mg PO TID 12/26/24 12/29/24 History megestrol 400 mg/10 mL (40 mg/mL) 400 mg PO QDAY 12/26/24 12/29/24 History oral suspension methocarbamol 500 mg tablet 500 mg PO BID 12/26/24 12/29/24 History multivitamin with minerals-ferrous tab PO QDAY 12/26/24 History sulfate 15 mg iron tablet nystatin 100,000 unit/gram topical 1 applic topical QDAY 12/26/24 12/29/24 History powder (Klayesta) Allergies Allergy/AdvReac Type Severity Reaction Status Date / Time fentanyl AdvReac Mild Numbness Verified 01/03/25 12:35 latex AdvReac Mild RASH Verified 01/03/25 12:35 morphine AdvReac Unknown Verified 01/03/25 12:35 Exam Vital Signs Temp Pulse Resp BP Pulse Ox O2 Del Method O2 Flow Rate 97.6 F 85 18 138/55 H 99 Room Air 3 01/05/25 08:00 01/05/25 08:00 01/05/25 08:00 01/05/25 08:00 01/05/25 08:00 01/05/25 04:00 01/03/25 13:20 Narrative Exam Physical examination revealed 64-year-old female who is 5 foot 5 inches tall weighing 140 pounds. Constitutional Constitutional: mild distress Routine Chest/Breast/Axilla Exam Comments: Examination of the chest revealed dual port Port-A-Cath inserted to the right jugular vein in [place]. The appearance of the port on the outside looks normal Routine Abdominal Exam Comments: Patient has an ileostomy on the left upper quadrant Routine Extremities Exam Comments: Patient has an achy amputation of the right thigh and has ulcers over the left leg with necrosis Results Results: Laboratory Laboratory Narrative: Laboratory results are within normal limits Results: Imaging Imaging narrative: Transesophageal echo showed vegetations at the tip of the Port-A-Cath Assessment & Plan Additional Assessment Additional comments: Impression: Infected Port-A-Cath with bacteremia Plan Plan: We shall arrange for removal of the port under general anesthesia tomorrow
[2025-01-05] MEDS: MG HYD/AL HYD/SIME (Maalox Reg) SUSP 30 ML UDC PO (17:14)
[2025-01-05 20:00] VITALS: BP 144/50; PULSE 82; RESP 18; TEMP 36.1; O2SAT 100
[2025-01-05 21:32] LABS: Vancomycin,Trough 16.6 mcg/mL (5.0-10.0)
[2025-01-05] MEDS: DiphenhydrAMINE 25 MG CAPSULE PO (21:38)
[2025-01-06] VITALS (10 sets, daily range): BP systolic 121–160; BP diastolic 49–70; PULSE 83–96; RESP 17–19; TEMP 36.1–36.8; O2SAT 98–100
[2025-01-06] MEDS: LIDOCAINE 5% 1 PATCH TOP (00:35)
[2025-01-06 06:00] LABS: Basophils % (Auto) 0 % (0-2.5); Eosinophils # (Auto) 0.6 Thou/mm3 (0.0-0.5); Eosinophils % (Auto) 6 % (0-10); Hematocrit 23.5 % (36.0-46.0); Immature Granulocytes % (Auto) 0 % (0-0); Immature Granulocytes Auto 0.02 Thou/mm3 (0.00-0.00); Lymphocytes # (Auto) 2.6 Thou/mm3 (1.0-4.8); Lymphocytes % (Auto) 28 % (10-50); Mean Corpuscular HGB Conc 32.3 g/dl (31.0-37.0); Mean Corpuscular Hemoglobin 28.8 pg (25.0-35.0); Mean Corpuscular Volume 89 fL (80-100); Monocytes # (Auto) 0.7 Thou/mm3 (0.0-0.8); Monocytes % (Auto) 8 % (0-12); Neutrophils # (Auto) 5.3 Thou/mm3 (1.8-7.7); Neutrophils % (Auto) 57 % (37-80); Nucleated Red Blood Cell % 0 /100 WBC (0); Platelet Count 344 Thou/mm3 (140-440); RDW Standard Deviation 41.3 fL (36.4-46.3); Red Blood Count 2.64 Miln/mm3 (4.00-5.20); White Blood Count 9.3 Thou/mm3 (3.6-11.0)
[2025-01-06 06:08] LABS: Hemoglobin 7.6 g/dL (12.0-16.0)
[2025-01-06 06:55] LABS: Alanine Aminotransferase < 7 U/L (10-49); Alkaline Phosphatase 69 U/L (46-116); Anion Gap 8 (7-16); Aspartate Amino Transferase 12 U/L (0-34); BUN/Creatinine Ratio 12 Ratio (12-20); Bilirubin,Total < 0.2 mg/dL (0.3-1.2); Blood Urea Nitrogen 7 mg/dL (9-23); Calcium 8.5 mg/dL (8.3-10.6); Calcium (Corrected) 9.3 mg/dL (8.5-10.1); Chloride 102 mMol/L (98-107); Creatinine (Component) 0.6 mg/dL (0.6-1.3); Estimated Creatinine Clearance 80.7 mL/min (>60); Glucose 194 mg/dL (74-106); Magnesium 1.7 mg/dL (1.6-2.6); Osmolality,Calculated 274 (275-295); Phosphorous 2.6 mg/dL (2.4-5.1); Sodium 136 mMol/L (136-145); eGFR > 60 See Note
[2025-01-06] MEDS: COLLAGENASE OINT 30 GM TUBE TOP ×2 (08:11→23:40)
[2025-01-06] MEDS: ERTAPENEM INJ 1,000 MG in SODIUM CHLORIDE 0.9% (Popper) 50 ML 100 MG IV (08:11)
[2025-01-06] MEDS: Magnesium Sulfate 4 GM Ivpb 4 GM/50 ML BAG IV (09:09)
[2025-01-06] MEDS: VANCOMYCIN/NS 500 MG IVPB 100 ML 129 MG IV ×2 (10:09→21:46)
--- NOTE | 2025-01-06 10:26 | ESPR_ITS ---
Documentation for date of: 01/06/25 Subjective Subjective Interval history: Patient seen and examined at bedside, currently has no complaints patient is scheduled for Port-A-Cath removal today. Otherwise patient is stable. No complaints of chest pain, shortness of breath or dizziness. Exam Vital Signs Temp Pulse Resp BP Pulse Ox O2 Del Method O2 Flow Rate 97.1 F 86 18 137/58 H 98 Room Air 3 01/06/25 04:00 01/06/25 04:00 01/06/25 04:00 01/06/25 04:00 01/06/25 04:00 01/05/25 04:00 01/03/25 13:20 Narrative Exam General: AOx3, laying comfortably on bed, able to speak full sentences HEENT: NC/AT, mucous membranes moist, bilateral sclera anicteric Cardiovascular: regular rate and rhythm, S1/S2 present, no murmurs appreciated Pulmonary: clear to auscultation bilaterally, no rales/rhonchi/wheezes Abdominal: epigastric abdominal pain, ileostomy noted and functional with stool, soft, non-tender, non-distended Musculoskeletal: RLE s/p AKA, LLE s/p 3rd digit amputation Skin: stage 4 sacral ulcer and LLE leions now bandaged and s/p I&D Neuro: CN II-XII intact, no focal deficits Objective Labs 01/06/25 05:31 01/06/25 05:31 Labs: Laboratory Results - last 24 hr 01/05/25 01/06/25 21:05 05:31 WBC 9.3 RBC 2.64 L Hgb 7.6 L Hct 23.5 L MCV 89 MCH 28.8 MCHC 32.3 RDW Std Deviation 41.3 Plt Count 344 Neut % (Auto) 57 Lymph % (Auto) 28 [place] % (Auto) 8 Eos % (Auto) 6 Baso % (Auto) 0 Neut # (Auto) 5.3 Lymph # (Auto) 2.6 [place] # (Auto) 0.7 Eos # (Auto) 0.6 H Baso # (Auto) 0.0 Immature Gran # (Auto) 0.02 H Absolute Nucleated RBC 0.00 Immature Gran % 0 Nucleated RBC % 0 Sodium 136 Potassium 4.0 Chloride 102 Carbon Dioxide 26.0 Anion Gap 8 BUN 7 L Creatinine 0.6 Estim Creat Clear Calc 80.7 eGFR > 60 BUN/Creatinine Ratio 12 Glucose 194 H Calculated Osmolality 274 L Calcium 8.5 Corrected Calcium 9.3 Phosphorus 2.6 Magnesium 1.7 Total Bilirubin < 0.2 L AST 12 ALT < 7 L Alkaline Phosphatase 69 Total Protein 6.0 Albumin 3.0 L Globulin 3.0 Albumin/Globulin Ratio 1.0 L Vancomycin Trough 16.6 H Quality Measures Quality Measures VTE prophylaxis (Lovenox on hold ) Advance care planning discussed with:: patient Assessment & Plan Assessment Current Active Medications: Generic Name Dose Route Start Last Admin Trade Name Freq PRN Reason Stop Dose Admin Acetaminophen 650 mg 01/02/25 11:40 Acetaminophen 325 Mg Tablet PO 02/01/25 11:39 Q4HR PRN PAIN SCALE 1-3 (mild Acetaminophen 1,000 mg 01/02/25 11:41 Acetaminophen 500 Mg Tablet PO 01/25/25 05:20 Q6H PRN Fever >100 Al Hydrox/Mg Hydrox/Simethicone 30 ml 01/02/25 10:55 01/05/25 17:14 Mg Hyd/Al Hyd/Ashley (Maalox Reg) Susp 30 Ml Udc PO 02/01/25 10:54 30 ml Q4HR PRN Administration UPSET STOMACH/INDIGESTION Atorvastatin Calcium 40 mg 12/30/24 21:00 01/05/25 21:38 Atorvastatin Calcium 20 Mg Tablet PO 01/29/25 20:59 Not Given HS DEWAYNE Calamine 0 ml 12/28/24 14:44 Calamine Lotion 120 Ml Btl TOP 01/27/25 14:43 UD PRN ITCHING Collagenase 0 gm 01/04/25 21:00 01/06/25 08:11 Collagenase Oint 30 Gm Tube TOP 02/03/25 20:59 1 appl QDAY DEWAYNE Administration Dextrose 50 ml 12/26/24 05:44 Dextrose 50%-Water Inj 50 Ml Syringe IV 01/25/25 05:43 Q15MIN PRN BG <50 OR BG <70 & pt unresponsive Dicyclomine HCl 10 mg 01/02/25 15:37 01/02/25 17:05 Dicyclomine 10 Mg Capsule PO 02/01/25 15:36 10 mg QID PRN Administration ABDOMINAL CRAMPING Protocol Diphenhydramine HCl 25 mg 12/27/24 23:40 01/05/25 21:38 Diphenhydramine 25 Mg Capsule PO 01/26/25 23:39 25 mg HS DEWAYNE Administration Enoxaparin Sodium 40 mg 12/26/24 09:00 01/06/25 08:11 Enoxaparin Sod Inj 40 Mg/0.4 Ml Syringe SC 01/09/25 08:59 Not Given QDAY DEWAYNE Vancomycin/Sodium Chloride 100 mls @ 120 mls/hr 12/31/24 10:00 01/06/25 10:09 Vancomycin/Ns 500 Mg Ivpb IV 01/12/25 09:59 129 mls/hr Q12H DEWAYNE Administration Protocol Ertapenem 1,000 mg/ Sodium 50 mls @ 100 mls/hr 01/05/25 11:00 01/06/25 08:11 Chloride IV 01/12/25 10:59 100 mls/hr QDAY DEWAYNE Administration Magnesium Sulfate 4 gm in 50 mls @ 12.5 mls/hr 01/06/25 08:28 01/06/25 09:09 Magnesium Sulfate Ivpb IV 01/06/25 12:27 12.5 mls/hr X1 ONE Administration Insulin Human Lispro 0 unit 12/29/24 11:25 01/06/25 07:27 Insulin Lispro (Admelog) 1 Unit/0.01 Ml Unit SC 01/25/25 07:29 Not Given AC [facility] Protocol Lidocaine 1 patch 01/03/25 01:50 01/06/25 00:35 Lidocaine 5% 1 Patch TOP 02/02/25 08:59 1 patch QDAY PRN Administration back pain Protocol Methocarbamol 500 mg 12/30/24 09:00 01/06/25 08:06 Methocarbamol 500 Mg Tablet PO 01/29/25 08:59 Not Given BID DEWAYNE Ondansetron HCl 4 mg 12/26/24 05:21 Ondansetron Inj 2 Mg/Ml Inj 2 Ml IV 01/25/25 05:20 Q6H PRN NAUSEA OR VOMITING Protocol Oxycodone/Acetaminophen 1 tab 01/04/25 10:48 01/05/25 21:45 Oxycodone/Apap 5/325 Tablet PO 01/09/25 10:47 1 tab Q6HR PRN Administration PAIN SCALE 4-10(Mod-Sev Pharmacy Consult 1 each 01/06/25 09:00 Vancomycin Pharmacy To Dose 1 Each Each IV 02/09/25 12:00 QDAY PRN CONSULT Simethicone 80 mg 12/30/24 15:38 Simethicone 80 Mg Chew PO 01/29/25 15:37 QID PRN GAS Vitamin B Complex/Vit C/Folic Acid 1 tab 12/26/24 09:00 01/06/25 08:07 Vit B12/Vit C/Fa (Nephrovite) Tablet PO 01/25/25 08:59 Not Given QDAY DEWAYNE Plan Assessment and Plan: Summary: Ms. 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 Orthopedics and oncology were consulted. With progression of hospital course General Surgery was officially consulted, eventually had excisional debridement of sacral and left lateral lower extremity wounds performed on 12/27/24, infectious disease was consulted due to sacral osteomyelitis, initially orthopedics was consulted who recommended general surgery consult, urology consulted due to chronic indwelling Reid considering patient being catheter dependent. With the progression of hospital course patient also had PICC line placement due to 2 sets of positive blood cultures and cardiology was consulted for THOMAS to evaluate heart for possible vegetations and rule out bacterial endocarditis. #Coccygeal osteomyeltiis #Staph hominis bacteremia, on 2 consecutive blood cultures #Stage IV sacral ulcer #Severe PAD, s/p RLE BKA + LLE 3rd digit amputation #Suspicious vegetation on Port-A-Cath on right atrium Patient originally admitted for coccygeal osteomyelitis, general surgery was consulted eventually had excisional debridement of sacral ulcer and left lower extremity wounds on 12/27/2024. Patient had 2 sets of blood cultures positive for Staph hominis, initial set positive for 2/2, follow-up set positive for 1/2. Infectious diseases on board, patient had PICC line placed for IV antibiotics. CT abdomen pelvis 12/25/2024 shows Large soft tissue ulceration in the posterior lower back with osteomyelitis coccygeal segments. Cardiology consulted for THOMAS to further rule out endocarditis. Patient is currently on Macrobid p.o., IV vancomycin. Patient does not have any history of any CAD and denies any Stents or any previous surgeries or valve replacements. Patient otherwise states that she never followed up with a brand ambassador promotional model. TTE 12/27/2024 shows LV size and function normal with an estimated EF of 55 to 60%. Diastolic dysfunction stage I. Normal RV size and function with normal RVSP of 25 mmHg. Mild TR. Moderate aortic valve sclerosis with possible mild stenosis. V-max is only 2.2- 2.3 m/s mean gradient is 11 mmHg but valve area is 1.2 cm?. Mild MAC along with mild thickening of the mitral leaflets along with mild MR. THOMAS 01/03/2025 Small linear echodensity noted near tip of the Port-A-Cath in the right atrium suspicious for vegetation and less likely thrombus. Normal LV size and function with an EF of 60 to 65%. Normal RV size and function. Trace TR Mild MR, mild aortic valve sclerosis without stenosis. No evidence of any vegetations noted on any of the valves. No LA/ANNMARIE thrombus. No evidence of any PFO or ASD. Bubble study negative Plan: -Scheduled for Port-A-Cath removal tomorrow -Continue management per primary team -Infectious diseases consulted and following case #Catheter associated UTI #Chronic reid #Microscopic hematuria Ceftriaxone 2 g IV daily (12/25-12/29) Urine culture 12/27: ESBL E. coli Currently on p.o. nitrofurantoin and IV Vancomycin. #Hx of endometrial CA s/p hysterectomy + BSO in 2017, s/p radiation + chemotherapy 2016?2021 CT A/P showed 3.1 cm heterogeneously enhancing nodular mass adjacent to superior aspect of the urinary bladder, suspicious for neoplasm ? Oncology consulted, appreciate recommendations ? Recommended urology consult and cystoscopy with biopsy ? Urology consulted, appreciate recommendations ? States that currently not safe to undergo cystoscopy ? Follow-up urine cytology #Type 2 diabetes mellitus A1c 7.6%. Management per primary team, recommend strict glycemic control, blood sugar while inpatient in the range of 140-180. #Hyperlipidemia On home atorvastatin 40 mg p.o. daily #Normocytic anemia, secondary to #Iron deficiency Normocytic anemia Hb 9.4 MCV 89. Iron panel: Iron 23, TIBC 601, iron saturation 3%, unsaturated iron binding 578 recommend IV iron infusions, ferric gluconate for 5 days #Abdominal pain #Non-anion gap metabolic acidosis in setting of ileostomy, resolved Thank you for the consult and allowing to participate in the care of the patient. Cardiology will continue to follow. Case discussed with Attending Dr. Travis. Carrillo Florentino PGY1 Attending Provider Attestation/Addendum I have personally seen and examined the patient separately on the above date of service and discussed the plan of care with the resident. I reviewed the resident Dr. Carrillo Florentino consultation progress note and agree with the resident findings and plan in the note above and have also edited the documentation to reflect my findings and plan. Jeovanny Travis M.D. Interventional Cardiology
--- NOTE | 2025-01-06 12:32 | ESPR_ITS ---
<Statement entered by Anjel Blancas MD - 01/06/25 18:14> Patient was seen and examined at the bedside. No acute overnight events were reported. Patient stated that her abdominal pain has improved. Patient is getting Port-A-Cath and anticipating discharge tomorrow morning. Labs were unremarkable. All labs and orders were reviewed. I saw and examined the patient, and I agree with current management stated by Dr Britta MD,PGY1. Plan of care was discussed with the attending physician and resident physician. Disclaimer: Despite multiple revisions, due to the dictation software being used, the document bellow may not be free of grammatical errors including phonetic/typographic errors. However, this does not deter from our commitment to providing health care in the patient's best interest in mind. Dr. 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 Presented on 12/25 for recurrent leakage around Reid catheter, dysuria, and foul-smelling urine x24 hours and admitted for work-up and management of chronic Reid catheter associated UTI and coccygeal osteomyelitis (stage IV sacral ulcer). 12/26: Seen and examined at bedside in ED and on medical floor. No acute overnight events reported. Denies fever, chills, nausea, vomiting, shortness of breath, or chest pain. States that she has a campus administrator who sees patient after being discharged from [facility] approximately 3 weeks ago. Patient is satisfied with care but heike evaluation, noted to have dry and gangrenous lesions on heel and lateral aspect of the left lower extremity: So we will look into APS consult at this time and director social service notified. Will continue ceftriaxone and doxycycline follow-up blood and urine cultures. Wound care order placed, orthopedic surgery and infectious disease consulted for osteomyelitis, and oncology consulted for bladder mass seen on imaging. Will follow-up on recommendations. 12/27: Seen and examined at bedside on medical floors. No acute overnight events reported. Denies fever, chills, N/V, SOB, or chest pain. Orthopedic surgery consulted and deferred possible LLE procedure to general surgery, who stated that given R AKA is still healing and will not pursue definitive surgical treatment of LLE. However, general surgery was able to debride sacral decubitus ulcer and packed, LLE wounds also debrided. Oncology also consulted given bladder mass seen on CT and recommended urology consult for cystoscopy with biopsy. Thus, consult placed and urologist contacted regarding case and plans to see patient tomorrow after urine cytology obtained. Per ID, given positive 2/2 blood cultures with GPC, will obtain another set of blood cultures and doxycycline DC'd and switched to vancomycin. Echo also ordered. Patient's sister, Mayra, at bedside and updated regarding current plans and management. 12/28: Seen and examined at bedside on medical floors. No acute overnight events reported. No fevers overnight and WBC remained stable. Second round of blood cultures noted to be positive in 1 of 2 bottles for GPC. Will send second set of blood cultures tomorrow. Echo obtained and showed no signs of vegetations. Urology evaluated patient and deemed that given GPC bacteremia that is not safe to undergo cystoscopy. MRSA nares positive and urine culture growing GNR, ID to follow. 12/29: Seen and examined at bedside on medical floors. No acute overnight events reported. No fevers overnight and WBC continues to remain stable. Patient endorses abdominal pain but is chronic and states that she has experienced this at home. Will restart patient's home methocarbamol. 12/30: Seen and examined at bedside on medical floors. No acute overnight events reported. No fevers overnight and WBC stable and within normal limits. Continues to endorse abdominal pain despite resuming methocarbamol and will start on simethicone to see if it helps relieve patient symptoms. Spoke to patient's sister regarding possible PICC line placement as she is POA and patient prefers to have sister around to make medical decisions. Plan to have sister come tomorrow at 10 AM and will have discussion then. 12/31: Seen and examined at bedside on medical floors. No acute overnight events reported. Spoke to patient and sister at bedside regarding PICC line placement as well as THOMAS that was recommended by infectious disease due to blood cultures resulting the same species. Risks, benefits, and options discussed at length and both were in agreement for PICC line placement as well as THOMAS. 01/01: Seen and examined at bedside on medical floors. No acute overnight events reported. She continues to endorse abdominal pain that has not been relieved by simethicone or methocarbamol. Will consult dietitian to see if we can optimize her diet. Otherwise, status post placement of PICC line and tolerated well and plan for THOMAS on Friday. 01/03: Seen and examined at bedside on medical floors. No acute overnight events reported. Naloxone and Tylenol added for abdominal pain but still no relief. Denies shortness of breath, chest pain, or N/V overnight. Otherwise, THOMAS scheduled in afternoon and will follow-up on results to determine antibiotic course. 01/04: Seen and examined at bedside on medical floors. No acute overnight events reported. Continues to have abdominal pain despite starting multiple agents. Underwent THOMAS yesterday and tolerated well. Results showed possible vegetation near Port-A-Cath tip in right atrium. Spoke to infectious disease who stated to be Port-A-Cath and for the time being and continue current management. 01/05: Seen and examined at bedside on medical floors. No acute overnight events reported. States that her abdominal pain is improved today. Denies any fever, chills, N/V, shortness of breath, or chest discomfort. Sister was called and updated regarding future plans, including removal of Port-A-Cath and IV antibiotics until 02/09. pain has continued to improve. 01/06: Seen and examined at bedside on medical floors. No acute overnight events reported. States that abdominal pain has continued to improve. Denies fever, chills, nausea, vomiting, shortness of breath, chest discomfort. She is n.p.o. and plan for removal of Port-A-Cath today and possible DC. Exam Vital Signs Temp Pulse Resp BP Pulse Ox O2 Del Method O2 Flow Rate 97.1 F 86 18 137/58 H 98 Room Air 3 01/06/25 04:00 01/06/25 04:00 01/06/25 04:00 01/06/25 04:00 01/06/25 04:00 01/05/25 04:00 01/03/25 13:20 Narrative Exam General: AOx3, laying comfortably on bed, able to speak full sentences HEENT: NC/AT, mucous membranes moist, bilateral sclera anicteric Cardiovascular: regular rate and rhythm, S1/S2 present, no murmurs appreciated Pulmonary: clear to auscultation bilaterally, no rales/rhonchi/wheezes Abdominal: epigastric abdominal pain, ileostomy noted and functional with stool, soft, non-tender, non-distended Musculoskeletal: RLE s/p AKA, LLE s/p 3rd digit amputation Skin: stage 4 sacral ulcer and LLE leions now bandaged and s/p I&D Neuro: CN II-XII intact, no focal deficits Objective Labs 01/07/25 04:40 01/07/25 04:40 Labs: Laboratory Results - last 24 hr 01/05/25 01/06/25 21:05 05:31 WBC 9.3 RBC 2.64 L Hgb 7.6 L Hct 23.5 L MCV 89 MCH 28.8 MCHC 32.3 RDW Std Deviation 41.3 Plt Count 344 Neut % (Auto) 57 Lymph % (Auto) 28 [place] % (Auto) 8 Eos % (Auto) 6 Baso % (Auto) 0 Neut # (Auto) 5.3 Lymph # (Auto) 2.6 [place] # (Auto) 0.7 Eos # (Auto) 0.6 H Baso # (Auto) 0.0 Immature Gran # (Auto) 0.02 H Absolute Nucleated RBC 0.00 Immature Gran % 0 Nucleated RBC % 0 Sodium 136 Potassium 4.0 Chloride 102 Carbon Dioxide 26.0 Anion Gap 8 BUN 7 L Creatinine 0.6 Estim Creat Clear Calc 80.7 eGFR > 60 BUN/Creatinine Ratio 12 Glucose 194 H Calculated Osmolality 274 L Calcium 8.5 Corrected Calcium 9.3 Phosphorus 2.6 Magnesium 1.7 Total Bilirubin < 0.2 L AST 12 ALT < 7 L Alkaline Phosphatase 69 Total Protein 6.0 Albumin 3.0 L Globulin 3.0 Albumin/Globulin Ratio 1.0 L Vancomycin Trough 16.6 H Quality Measures Quality Measures VTE prophylaxis (Lovenox on hold ) Advance care planning discussed with:: other Assessment & Plan Assessment Current Active Medications: Generic Name Dose Route Start Last Admin Trade Name Freq PRN Reason Stop Dose Admin Acetaminophen 650 mg 01/02/25 11:40 Acetaminophen 325 Mg Tablet PO 02/01/25 11:39 Q4HR PRN PAIN SCALE 1-3 (mild Acetaminophen 1,000 mg 01/02/25 11:41 Acetaminophen 500 Mg Tablet PO 01/25/25 05:20 Q6H PRN Fever >100 Al Hydrox/Mg Hydrox/Simethicone 30 ml 01/02/25 10:55 01/05/25 17:14 Mg Hyd/Al Hyd/Ashley (Maalox Reg) Susp 30 Ml Udc PO 02/01/25 10:54 30 ml Q4HR PRN Administration UPSET STOMACH/INDIGESTION Atorvastatin Calcium 40 mg 12/30/24 21:00 01/05/25 21:38 Atorvastatin Calcium 20 Mg Tablet PO 01/29/25 20:59 Not Given HS DEWAYNE Calamine 0 ml 12/28/24 14:44 Calamine Lotion 120 Ml Btl TOP 01/27/25 14:43 UD PRN ITCHING Collagenase 0 gm 01/04/25 21:00 01/06/25 08:11 Collagenase Oint 30 Gm Tube TOP 02/03/25 20:59 1 appl QDAY DEWAYNE Administration Dextrose 50 ml 12/26/24 05:44 Dextrose 50%-Water Inj 50 Ml Syringe IV 01/25/25 05:43 Q15MIN PRN BG <50 OR BG <70 & pt unresponsive Dicyclomine HCl 10 mg 01/02/25 15:37 01/02/25 17:05 Dicyclomine 10 Mg Capsule PO 02/01/25 15:36 10 mg QID PRN Administration ABDOMINAL CRAMPING Protocol Diphenhydramine HCl 25 mg 12/27/24 23:40 01/05/25 21:38 Diphenhydramine 25 Mg Capsule PO 01/26/25 23:39 25 mg HS DEWAYNE Administration Enoxaparin Sodium 40 mg 12/26/24 09:00 01/06/25 08:11 Enoxaparin Sod Inj 40 Mg/0.4 Ml Syringe SC 01/09/25 08:59 Not Given QDAY DEWAYNE Vancomycin/Sodium Chloride 100 mls @ 120 mls/hr 12/31/24 10:00 01/06/25 10:09 Vancomycin/Ns 500 Mg Ivpb IV 01/12/25 09:59 129 mls/hr Q12H DEWAYNE Administration Protocol Ertapenem 1,000 mg/ Sodium 50 mls @ 100 mls/hr 01/05/25 11:00 01/06/25 08:11 Chloride IV 01/12/25 10:59 100 mls/hr QDAY DEWAYNE Administration Insulin Human Lispro 0 unit 12/29/24 11:25 01/06/25 11:05 Insulin Lispro (Admelog) 1 Unit/0.01 Ml Unit SC 01/25/25 07:29 Not Given AC DEWAYNE Protocol Lidocaine 1 patch 01/03/25 01:50 01/06/25 00:35 Lidocaine 5% 1 Patch TOP 02/02/25 08:59 1 patch QDAY PRN Administration back pain Protocol Methocarbamol 500 mg 12/30/24 09:00 01/06/25 08:06 Methocarbamol 500 Mg Tablet PO 01/29/25 08:59 Not Given BID DEWAYNE Ondansetron HCl 4 mg 12/26/24 05:21 Ondansetron Inj 2 Mg/Ml Inj 2 Ml IV 01/25/25 05:20 Q6H PRN NAUSEA OR VOMITING Protocol Oxycodone/Acetaminophen 1 tab 01/04/25 10:48 01/05/25 21:45 Oxycodone/Apap 5/325 Tablet PO 01/09/25 10:47 1 tab Q6HR PRN Administration PAIN SCALE 4-10(Mod-Sev Pharmacy Consult 1 each 01/06/25 09:00 Vancomycin Pharmacy To Dose 1 Each Each IV 02/09/25 12:00 QDAY PRN CONSULT Simethicone 80 mg 12/30/24 15:38 Simethicone 80 Mg Chew PO 01/29/25 15:37 QID PRN GAS Vitamin B Complex/Vit C/Folic Acid 1 tab 12/26/24 09:00 01/06/25 08:07 Vit B12/Vit C/Fa (Nephrovite) Tablet PO 01/25/25 08:59 Not Given QDAY DEWAYNE Plan Ni Schmid is a 64-y/o female with a PMHx of endometrial carcinoma diagnosed in 2016 s/p robotic hysterectomy and bilateral salpingo-oophorectomy at [facility] in 2016, s/p brachytherapy and external beam radiation for recurrent vaginal cuff tumor in 2018 and chemotherapy until 2021 for the same, 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 Presented on 12/25 for recurrent leakage around Reid catheter, dysuria, and foul-smelling urine x24 hours and admitted for work-up and management of chronic Reid catheter associated UTI and coccygeal osteomyelitis (stage IV sacral ulcer). #Coccygeal osteomyeltiis #Staph hominis bacteremia #Stage IV sacral ulcer #Severe PAD, s/p RLE BKA + LLE 3rd digit amputation Echo on 12/27 without signs of vegetations. EF 55 to 60% with normal LV size and function, stage I diastolic dysfunction. Blood cultures 12/25: 2/2 bottles positive for Staph hominis Blood cultures 12/27: 1/2 bottles positive for Staph hominis Blood cultures 12/29: NGTD S/p debridement of sacral ulcer and LLE wounds on 12/27 THOMAS on 01/03: Possible vegetation near tip of Port-A-Cath in right atrium ? Infectious disease following, appreciate recommendations ? Ertapenem/vancomycin through 02/09 ? Given that blood cultures negative prior to insertion of PICC line, will not exchange for new PICC line ? General Surgery consulted, NPO and plans to remove Port-A-Cath ? Referral to wound care ? Vitamin B complex, vitamin C, folic acid tablets PO daily #Catheter associated UTI #Chronic reid #Microscopic hematuria Ceftriaxone 2 g IV daily (12/25-12/29) Urine culture 12/27: ESBL E. coli. Completed coures of nitrofurantoin 100 mg p.o. twice daily (12/29-01/05). #Hx of endometrial CA s/p hysterectomy + BSO in 2016, s/p radiation + chemotherapy 2016?2021 CT A/P showed 3.1 cm heterogeneously enhancing nodular mass adjacent to superior aspect of the urinary bladder, suspicious for neoplasm ? Oncology consulted, appreciate recommendations ? Recommended urology consult and cystoscopy with biopsy ? Urology consulted, appreciate recommendations ? States that currently not safe to undergo cystoscopy ? Follow-up urine cytology #Type 2 diabetes mellitus A1c 7.6%. ? Step 3 SSI with Accu-Checks #Hyperlipidemia ? Home Atorvastatin 40 mg p.o. daily #Normocytic anemia, secondary to #Iron deficiency Normocytic anemia Hb 9.4 MCV 89. Iron panel: Iron 23, TIBC 601, iron saturation 3%, unsaturated iron binding 578 #Abdominal pain ? Home methocarbamol 500 mg p.o. twice daily ? Simethicone 80 mg PO QID PRN ? Added Maalox and Tylenol as needed ? Added dicyclomine ? Registered dietitian referral: low fiber diet #Non-anion gap metabolic acidosis in setting of ileostomy, resolved Antibiotics: Ertapenem 01/05- Vancomycin 12/27- Macrobid 12/29-01/05 Ceftriaxone 12/25-12/29 Doxycycline 12/26-12/27 Hospital management: Disposition: osteomyelitis, ESBL E. coli, Staph hominis bacteremia; ID following and pending removal of port-A-cath Fluids: none Diet: carbohydrate consistent low Lines: PIV DVT prophylaxis: enoxaparin SC daily GI prophylaxis: pantoprazole CODE STATUS: limited code, no chest compressions ----- Plan discussed with attending physician Dr. Kitchen and senior resident physician Dr. Magalis Callejas MD PGY-1 Internal Medicine Attending Provider Attestation/Addendum I have discussed and was present for the essential components of the history, physical examination, diagnosis, and treatment plan with the resident. I agree with the patient's care as documented by the resident and amended herein by me. Israel Kitchen DO. Although this document has been carefully reviewed, there may still be some phonetic and other typographical errors. These errors are purely grammatical due to imperfections in the software program and should not be construed in any way to compromise the substance of the patient's medical care during this visit.
--- NOTE | 2025-01-06 17:12 | PD.SUROPNT ---
Date of Procedure 01/06/25 Pre Op Diagnosis Infected Port-A-Cath with vegetations Post Op Diagnosis Same Procedure Removal of the Port-A-Cath Findings Patient is found to have developed port inserted through the right jugular vein Procedure Description After the patient was brought to the operating room general anesthesia was given. Then her right chest was washed with ChloraPrep solution and draped in a sterile manner. Timeout was performed. Then injected 1% Xylocaine with epinephrine plain and sodium bicarbonate to make an incision over the previous surgical scar. Then the She will over the port was incised on the polyurethane catheter was removed from the jugular vein without any difficulty. The port was removed and the subcutaneous tissue was irrigated with saline solution. There is a (was closed with 3-0 chromic skin by 4-0 Monocryl. Dressing was applied with Adaptic and 4 x 4 gauze and patient tolerated procedure Anesthesia other Pathology / specimen None Estimated Blood Loss 5 Surgeon Bambi Maya MD Surgical Staff Operation Date: 01/06/25 15:15 Case Staff Anesthesiologist: Galen Raman
--- NOTE | 2025-01-06 17:14 | SUR.PHASEI ---
Pt. arrived to recovery via bed, VSS, no c/o pain or nausea at this time, dressing to right upper chest, sutures, adaptic, fluffs and metaport tape in place, no active bleeding or redness noted, lung sounds clear, equal expansion ovidio., pt. has reid catheter in place, straw colored urine in collection bag, PICC line to left upper arm fluids transfusing, BKA to right lower leg, blood glucose assessed on arrival 149. Report received from Sesar LEON and Dr. Raman.
--- NOTE | 2025-01-06 17:45 | SUR.PHASEI ---
Called and gave report on pt. s/p surgery to Willie LEON on M/S unit. Pt. is AAOX3, no c/o pain or nausea at this time, dressing to right upper chest CDI.
--- NOTE | 2025-01-06 17:50 | SUR.PHASEI ---
Pt. transferred to room 371 via bed by staff, VSS, no c/o pain or nausea at this time. Willie LEON assumed care of pt.
[2025-01-06] MEDS: methocarbamoL 500 MG TABLET PO (20:47)
[2025-01-06] MEDS: DiphenhydrAMINE 25 MG CAPSULE PO (20:47)
[2025-01-06] MEDS: oxyCODONE/APAP 5/325 TABLET 1 TAB PO (21:44)
[2025-01-07] VITALS: BP 137/68; PULSE 95; RESP 18; TEMP 37.2; O2SAT 99
[2025-01-07 04:00] VITALS: BP 126/51; PULSE 91; RESP 19; TEMP 36.9; O2SAT 99
[2025-01-07 06:12] LABS: Basophils % (Auto) 0 % (0-2.5); Eosinophils # (Auto) 0.5 Thou/mm3 (0.0-0.5); Eosinophils % (Auto) 5 % (0-10); Hematocrit 22.4 % (36.0-46.0); Immature Granulocytes % (Auto) 0 % (0-0); Immature Granulocytes Auto 0.04 Thou/mm3 (0.00-0.00); Lymphocytes # (Auto) 2.9 Thou/mm3 (1.0-4.8); Lymphocytes % (Auto) 28 % (10-50); Mean Corpuscular Hemoglobin 29.2 pg (25.0-35.0); Mean Corpuscular Volume 89 fL (80-100); Monocytes # (Auto) 0.8 Thou/mm3 (0.0-0.8); Monocytes % (Auto) 8 % (0-12); Neutrophils # (Auto) 5.9 Thou/mm3 (1.8-7.7); Neutrophils % (Auto) 58 % (37-80); Nucleated Red Blood Cell % 0 /100 WBC (0); Platelet Count 359 Thou/mm3 (140-440); RDW Standard Deviation 40.8 fL (36.4-46.3); Red Blood Count 2.53 Miln/mm3 (4.00-5.20); White Blood Count 10.2 Thou/mm3 (3.6-11.0)
[2025-01-07 06:13] LABS: Hemoglobin 7.4 g/dL (12.0-16.0)
[2025-01-07 06:43] LABS: Alanine Aminotransferase < 7 U/L (10-49); Alkaline Phosphatase 73 U/L (46-116); Anion Gap 7 (7-16); Aspartate Amino Transferase 10 U/L (0-34); BUN/Creatinine Ratio 10 Ratio (12-20); Bilirubin,Total < 0.2 mg/dL (0.3-1.2); Blood Urea Nitrogen 8 mg/dL (9-23); Calcium 8.5 mg/dL (8.3-10.6); Calcium (Corrected) 9.3 mg/dL (8.5-10.1); Chloride 100 mMol/L (98-107); Creatinine (Component) 0.8 mg/dL (0.6-1.3); Estimated Creatinine Clearance 60.5 mL/min (>60); Glucose 233 mg/dL (74-106); Magnesium 1.8 mg/dL (1.6-2.6); Osmolality,Calculated 271 (275-295); Phosphorous 2.5 mg/dL (2.4-5.1); Sodium 133 mMol/L (136-145); eGFR > 60 See Note
[2025-01-07] MEDS: INSULIN LISPRO (AdmeLOG) 1 UNIT/0.01 ML UNIT SC ×2 (07:22→11:32)
--- NOTE | 2025-01-07 08:27 | PC.SS ---
Addendum entered by Emi Ayers 01/07/25 12:09: SS contacted [facility] and at the time there is no transportation team assigned yet. SS provided [facility] nurses stations number. Addendum entered by Emi Ayers 01/07/25 09:04: SS follow up note; SS contacted patient's nurse Willie in regards to patient discharging to [facility] today. Patient requesting a bed next to a window. Isabel reported she'll have one available in a few days and will move patient. SS updated patient and verbalized understanding. Original Note: SS follow up note; SS set up transportation for patient with [facility], Reference # [id number].
[2025-01-07] MEDS: VIT B12/Vit C/FA (Nephrovite) TABLET 1 TAB PO (08:48)
[2025-01-07] MEDS: ERTAPENEM INJ 1,000 MG in SODIUM CHLORIDE 0.9% (Popper) 50 ML 100 MG IV (08:48)
[2025-01-07] MEDS: methocarbamoL 500 MG TABLET PO (08:48)
[2025-01-07] MEDS: ENOXAPARIN SOD INJ 40 MG/0.4 ML SYRINGE SC (08:48)
[2025-01-07] MEDS: COLLAGENASE OINT 30 GM TUBE TOP (08:48)
--- NOTE | 2025-01-07 09:10 | ESPR_ITS ---
Documentation for date of: 01/07/25 Subjective Subjective Interval history: Patient seen and examined at bedside, vitals and labs reviewed. No complaints of chest pain, shortness of breath or dizziness. She is status-post port-a-cath removal, bandage intact. Otherwise patient is stable. Exam Vital Signs Temp Pulse Resp BP Pulse Ox O2 Del Method O2 Flow Rate 97.4 F 91 18 154/68 H 94 L Room Air 3 01/07/25 12:00 01/07/25 12:00 01/07/25 12:00 01/07/25 12:00 01/07/25 12:00 01/07/25 04:00 01/06/25 08:00 Narrative Exam General: AOx3, laying comfortably on bed, able to speak full sentences HEENT: NC/AT, mucous membranes moist, bilateral sclera anicteric, bandage intact no redness or tenderness. Cardiovascular: regular rate and rhythm, S1/S2 present, no murmurs appreciated Pulmonary: clear to auscultation bilaterally, no rales/rhonchi/wheezes Abdominal: epigastric abdominal pain, ileostomy noted and functional with stool, soft, non-tender, non-distended Musculoskeletal: RLE s/p AKA, LLE s/p 3rd digit amputation Skin: stage 4 sacral ulcer and LLE leions now bandaged and s/p I&D Neuro: CN II-XII intact, no focal deficits Objective Labs 01/07/25 04:40 01/07/25 04:40 Labs: Laboratory Results - last 24 hr 01/07/25 01/07/25 04:40 09:03 WBC 10.2 RBC 2.53 L Hgb 7.4 L Hct 22.4 L MCV 89 MCH 29.2 MCHC 33.0 RDW Std Deviation 40.8 Plt Count 359 Neut % (Auto) 58 Lymph % (Auto) 28 [place] % (Auto) 8 Eos % (Auto) 5 Baso % (Auto) 0 Neut # (Auto) 5.9 Lymph # (Auto) 2.9 [place] # (Auto) 0.8 Eos # (Auto) 0.5 Baso # (Auto) 0.0 Immature Gran # (Auto) 0.04 H Absolute Nucleated RBC 0.00 Immature Gran % 0 Nucleated RBC % 0 Sodium 133 L Potassium 4.0 Chloride 100 Carbon Dioxide 26.0 Anion Gap 7 BUN 8 L Creatinine 0.8 Estim Creat Clear Calc 60.5 L eGFR > 60 BUN/Creatinine Ratio 10 L Glucose 233 H Calculated Osmolality 271 L Calcium 8.5 Corrected Calcium 9.3 Phosphorus 2.5 Magnesium 1.8 Total Bilirubin < 0.2 L AST 10 ALT < 7 L Alkaline Phosphatase 73 Total Protein 6.0 Albumin 3.0 L Globulin 3.0 Albumin/Globulin Ratio 1.0 L Vancomycin Trough 18.8 H Quality Measures Quality Measures VTE prophylaxis (Lovenox on hold ) Advance care planning discussed with:: patient Assessment & Plan Assessment Current Active Medications: Generic Name Dose Route Start Last Admin Trade Name Freq PRN Reason Stop Dose Admin Acetaminophen 650 mg 01/02/25 11:40 Acetaminophen 325 Mg Tablet PO 02/01/25 11:39 Q4HR PRN PAIN SCALE 1-3 (mild Acetaminophen 1,000 mg 01/02/25 11:41 Acetaminophen 500 Mg Tablet PO 01/25/25 05:20 Q6H PRN Fever >100 Al Hydrox/Mg Hydrox/Simethicone 30 ml 01/02/25 10:55 01/05/25 17:14 Mg Hyd/Al Hyd/Ashley (Maalox Reg) Susp 30 Ml Udc PO 02/01/25 10:54 30 ml Q4HR PRN Administration UPSET STOMACH/INDIGESTION Atorvastatin Calcium 40 mg 12/30/24 21:00 01/06/25 20:46 Atorvastatin Calcium 20 Mg Tablet PO 01/29/25 20:59 Not Given HS DEWAYNE Calamine 0 ml 12/28/24 14:44 Calamine Lotion 120 Ml Btl TOP 01/27/25 14:43 UD PRN ITCHING Collagenase 0 gm 01/04/25 21:00 01/07/25 08:48 Collagenase Oint 30 Gm Tube TOP 02/03/25 20:59 1 appl QDAY DEWAYNE Administration Dextrose 50 ml 12/26/24 05:44 Dextrose 50%-Water Inj 50 Ml Syringe IV 01/25/25 05:43 Q15MIN PRN BG <50 OR BG <70 & pt unresponsive Dicyclomine HCl 10 mg 01/02/25 15:37 01/02/25 17:05 Dicyclomine 10 Mg Capsule PO 02/01/25 15:36 10 mg QID PRN Administration ABDOMINAL CRAMPING Protocol Diphenhydramine HCl 25 mg 12/27/24 23:40 01/06/25 20:47 Diphenhydramine 25 Mg Capsule PO 01/26/25 23:39 25 mg HS DEWAYNE Administration Enoxaparin Sodium 40 mg 12/26/24 09:00 01/07/25 08:48 Enoxaparin Sod Inj 40 Mg/0.4 Ml Syringe SC 01/09/25 08:59 40 mg QDAY DEWAYNE Administration Vancomycin/Sodium Chloride 100 mls @ 120 mls/hr 12/31/24 10:00 01/07/25 10:34 Vancomycin/Ns 500 Mg Ivpb IV 01/12/25 09:59 129 mls/hr Q12H DEWAYNE Administration Protocol Ertapenem 1,000 mg/ Sodium 50 mls @ 100 mls/hr 01/05/25 11:00 01/07/25 08:48 Chloride IV 01/12/25 10:59 100 mls/hr QDAY DEWAYNE Administration Insulin Human Lispro 0 unit 12/29/24 11:25 01/07/25 11:32 Insulin Lispro (Admelog) 1 Unit/0.01 Ml Unit SC 01/25/25 07:29 4 unit AC DEWAYNE Administration Protocol Lidocaine 1 patch 01/03/25 01:50 01/06/25 00:35 Lidocaine 5% 1 Patch TOP 02/02/25 08:59 1 patch QDAY PRN Administration back pain Protocol Methocarbamol 500 mg 12/30/24 09:00 01/07/25 08:48 Methocarbamol 500 Mg Tablet PO 01/29/25 08:59 500 mg BID DEWAYNE Administration Ondansetron HCl 4 mg 12/26/24 05:21 Ondansetron Inj 2 Mg/Ml Inj 2 Ml IV 01/25/25 05:20 Q6H PRN NAUSEA OR VOMITING Protocol Oxycodone/Acetaminophen 1 tab 01/04/25 10:48 01/06/25 21:44 Oxycodone/Apap 5/325 Tablet PO 01/09/25 10:47 1 tab Q6HR PRN Administration PAIN SCALE 4-10(Mod-Sev Pharmacy Consult 1 each 01/06/25 09:00 Vancomycin Pharmacy To Dose 1 Each Each IV 02/09/25 12:00 QDAY PRN CONSULT Simethicone 80 mg 12/30/24 15:38 Simethicone 80 Mg Chew PO 01/29/25 15:37 QID PRN GAS Vitamin B Complex/Vit C/Folic Acid 1 tab 12/26/24 09:00 01/07/25 08:48 Vit B12/Vit C/Fa (Nephrovite) Tablet PO 01/25/25 08:59 1 tab QDAY DEWAYNE Administration Plan Assessment and Plan: Summary: Ms. 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 Orthopedics and oncology were consulted. With progression of hospital course General Surgery was officially consulted, eventually had excisional debridement of sacral and left lateral lower extremity wounds performed on 12/27/24, infectious disease was consulted due to sacral osteomyelitis, initially orthopedics was consulted who recommended general surgery consult, urology consulted due to chronic indwelling Reid considering patient being catheter dependent. With the progression of hospital course patient also had PICC line placement due to 2 sets of positive blood cultures and cardiology was consulted for THOMAS to evaluate heart for possible vegetations and rule out bacterial endocarditis. #Coccygeal osteomyeltiis #Staph hominis bacteremia, on 2 consecutive blood cultures #Stage IV sacral ulcer #Severe PAD, s/p RLE BKA + LLE 3rd digit amputation #Suspicious vegetation on Port-A-Cath on right atrium Patient originally admitted for coccygeal osteomyelitis, general surgery was consulted eventually had excisional debridement of sacral ulcer and left lower extremity wounds on 12/27/2024. Patient had 2 sets of blood cultures positive for Staph hominis, initial set positive for 2/2, follow-up set positive for 1/2. Infectious diseases on board, patient had PICC line placed for IV antibiotics. CT abdomen pelvis 12/25/2024 shows Large soft tissue ulceration in the posterior lower back with osteomyelitis coccygeal segments. Cardiology consulted for THOMAS to further rule out endocarditis. Patient is currently on Macrobid p.o., IV vancomycin. Patient does not have any history of any CAD and denies any Stents or any previous surgeries or valve replacements. Patient otherwise states that she never followed up with a events solutions consultant. TTE 12/27/2024 shows LV size and function normal with an estimated EF of 55 to 60%. Diastolic dysfunction stage I. Normal RV size and function with normal RVSP of 25 mmHg. Mild TR. Moderate aortic valve sclerosis with possible mild stenosis. V-max is only 2.2- 2.3 m/s mean gradient is 11 mmHg but valve area is 1.2 cm?. Mild MAC along with mild thickening of the mitral leaflets along with mild MR. THOMAS 01/03/2025 Small linear echodensity noted near tip of the Port-A-Cath in the right atrium suspicious for vegetation and less likely thrombus. Normal LV size and function with an EF of 60 to 65%. Normal RV size and function. Trace TR Mild MR, mild aortic valve sclerosis without stenosis. No evidence of any vegetations noted on any of the valves. No LA/ANNMARIE thrombus. No evidence of any PFO or ASD. Bubble study negative Plan: -Status Post Port-a-cath removal 01/06/25 -Continue management per primary team -Infectious diseases consulted and following case #Catheter associated UTI #Chronic reid #Microscopic hematuria Ceftriaxone 2 g IV daily (12/25-12/29) Urine culture 12/27: ESBL E. coli Currently on p.o. nitrofurantoin and IV Vancomycin. #Hx of endometrial CA s/p hysterectomy + BSO in 2017, s/p radiation + chemotherapy 2016?2021 CT A/P showed 3.1 cm heterogeneously enhancing nodular mass adjacent to superior aspect of the urinary bladder, suspicious for neoplasm ? Oncology consulted, appreciate recommendations ? Recommended urology consult and cystoscopy with biopsy ? Urology consulted, appreciate recommendations ? States that currently not safe to undergo cystoscopy ? Follow-up urine cytology #Type 2 diabetes mellitus A1c 7.6%. Management per primary team, recommend strict glycemic control, blood sugar while inpatient in the range of 140-180. #Hyperlipidemia On home atorvastatin 40 mg p.o. daily #Normocytic anemia, secondary to #Iron deficiency Normocytic anemia Hb 9.4 MCV 89. Iron panel: Iron 23, TIBC 601, iron saturation 3%, unsaturated iron binding 578 recommend IV iron infusions, ferric gluconate for 5 days #Abdominal pain #Non-anion gap metabolic acidosis in setting of ileostomy, resolved Thank you for the consult and allowing to participate in the care of the patient. Cardiology will continue to follow. Case discussed with Attending Dr. Travis. Carrillo Florentino PGY1 Attending Provider Attestation/Addendum I have personally seen and examined the patient separately on the above date of service and discussed the plan of care with the resident. I reviewed the resident Dr. Carrillo Florentino consultation progress note and agree with the resident findings and plan in the note above and have also edited the documentation to reflect my findings and plan. Jeovanny Travis M.D. Interventional Cardiology
[2025-01-07 09:53] LABS: Vancomycin,Trough 18.8 mcg/mL (5.0-10.0)
--- NOTE | 2025-01-07 09:59 | PC.NURSE ---
pt refused vitals and q2 turns
--- NOTE | 2025-01-07 10:10 | PD.RESDS ---
Planned Discharge Date 01/07/25 DS: Providers Provider Date of admission: 12/26/24 05:21 Primary care physician: Emiliano Rosas MD Admitting Provider: Eddi Reyes MD Attending Provider on Admission: Germain Kitchen DO Consults: 12/26/24 05:40 Consult to Orthopedic Routine Comment: Coccygeal osteo Consulting Provider: Marco Antonio Desai 12/26/24 05:41 Referral Nutritional Services Routine Comment: Referral Wound Care Routine Comment: 12/26/24 05:45 Consult to Oncology Routine Comment: Consulting Provider: Arash Meyer 12/26/24 14:58 [employer] Referral - Utilities Routine Comment: Positive screening for utility assistance needs. 12/26/24 16:24 Consult to Infectious Diseases Routine Comment: Osteomyelitis Consulting Provider: Cayden Viera 12/27/24 09:59 Consult to General Surgery Routine Comment: Severe PAD, dry gangrene LLE, RLE s/p BKA Consulting Provider: Mona Clark 12/27/24 10:54 Consult to Urology Routine Comment: Bladder mass Consulting Provider: Dennis Rand 12/27/24 17:13 Referral OP Wound Healing Dept Routine Comment: Instructions: Sacrum stage 3, right AKA stump, left lower leg and heel 12/31/24 17:08 Consult to Cardiology Routine Comment: Consulting Provider: Jeovanny Travis Instructions: THOMAS to rule out endocarditis in setting of Staph hominis bacteremia 01/01/25 11:55 Referral Registered Dietitian Routine Comment: Instructions: Recommendations in setting of ileostomy, experiencing abdominal discomfort 01/05/25 14:57 Consult to General Surgery Routine Comment: Consulting Provider: Bambi Maya Attending Provider on DC: Anjel Blancas MD Discharging Provider: Anjel Blancas MD DS: Diagnosis Problem List Completed Was Problem List Reviewed/Reconciled?: Yes Hospital Course Hospital Course Hospital course: Patient was a 64-year-old female with history of endometrial carcinoma s/p robotic hysterectomy/BSO (2015?2016), s/p brachytherapy/radiation for recurrent vaginal cuff tumor (2018), chemo until 2021; 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 Patient also had positive blood cultures for Staph hominis and urine culture grew ESBL E. coli. Patient underwent THOMAS which revealed possible vegetation at tip of Port-A-Cath which was subsequently removed. Wound care and general surgery were consulted for debridement of sacral ulcer and LLE wounds. ID was consulted for antibiotic recommendations, for which patient was discharged to SNF with 1 g of ertapenem, 1 g vancomycin through February 09, 2025 with weekly CBC/renal panel/ESR. A PICC line was placed. Of note, there was concern for possible bladder mass for which oncology and urology were consulted. Patient was not safe to undergo a cystoscopy at this time for which she was advised to follow-up outpatient. On day of discharge, patient was stable, and plan of action was discussed with patient, her sister over the phone, RN and SW at bedside. #Coccygeal osteomyelitis #Staph hominis bacteremia #Stage IV sacral ulcer #Severe PAD, s/p RLE BKA + LLE third digit amputation #CAUTI #Chronic Michel, replaced #Microscopic hematuria #History of endometrial cancer s/p hysterectomy, BSO, radiation, chemo #T2DM #HLD #Normocytic anemia #Iron deficient #Abdominal pain #Non-anion gap metabolic acidosis in setting of ileostomy, resolved Patient seen and care discussed with my attending Dr. Kitchen. Purnima Bhatt MD PGY-3 Status at Discharge Cognitive/behavioral status at discharge: AAOx3 Time Spent with Patient Time attestation: Total time spent providing and/or coordinating discharge services: Time spent: Greater than 30 minutes Exam Vital Signs Temp Pulse Resp BP Pulse Ox O2 Del Method O2 Flow Rate 98.4 F 91 19 126/51 L 99 Room Air 3 01/07/25 04:00 01/07/25 04:00 01/07/25 04:00 01/07/25 04:00 01/07/25 04:00 01/07/25 04:00 01/06/25 08:00 Narrative Exam General: AOx3, laying comfortably on bed, able to speak full sentences HEENT: NC/AT, mucous membranes moist, bilateral sclera anicteric Cardiovascular: regular rate and rhythm, S1/S2 present, no murmurs appreciated Pulmonary: clear to auscultation bilaterally, no rales/rhonchi/wheezes Abdominal: epigastric abdominal pain, ileostomy noted and functional with stool, soft, non-tender, non-distended Musculoskeletal: RLE s/p AKA, LLE s/p 3rd digit amputation; in dressing Skin: stage 4 sacral ulcer and LLE leions now bandaged and s/p I&D; clean dressing over Port-A-Cath site noted; PICC line in LUE Neuro: CN II-XII intact, no focal deficits appreciated Discharge Plan Plan Patient Disposition: Xfer Skilled Nsg Fac (SNF) Patient condition on transfer: Stable Health Concerns: Patient will need to complete vancomycin 1g qDay and ertapenem 1g qDay until 02/09/2025. Weekly CBC, renal panel, ESR. PICC line removal at the end of treatment Follow wound care recs as below. Please keep pressure off sacral/coccyx ulcer Follow up with oncology, primary care and urology outpatient Patient's Port-A-Cath was removed. Oncology can determine if she will need a new one at a later date Please follow up at the [facility] ([facility] [address]) with Dr. Callejas on Friday afternoon. Please call [phone] to schedule an appointment. Care Plan Goals: 1) Stage 4 to sacrum and Stage 3 Left ankle: irrigate with normal saline, pat dry. Cover wound bed with thin layer of Santyl. Fill remaining cavity with calcium alginate and secure with allyven dressing daily and PRN for soiling or falling off. Side to side repositioning except for meals 2) Left lower leg arterial ulcers. Unstageable to left heel: cleanse with NS, pat dry, apply thin layer of Santyl than alginate to wound beds on lower leg. Saturate dry gauze with betadine and cover heel wound. Layer all wounds with dry gauze and secure with kerlix roll than light marvin wrap. Change daily and PRN for falling off. Negative heel pressure to left heel at all times. 3) Right AKA incision: cleanse with NS, pat dry, pack wounds with calcium alginate. Cover with dry gauze and secure with medipore tape. Change daily and PRN for falling off. 4) Left abdomen colostomy: pouch change 2x weekly Prescriptions/Referrals Prescriptions/Med Rec: New calamine-zinc oxide 8-8 % Lotion 1 applic top UD PRN (Reason: Itching) Qty: 177 0RF Santyl 250 unit/gram Ointment 1 applic top QDAY Qty: 90 0RF diphenhydramine HCl [Banophen] 25 mg Capsule 25 mg PO HS 30 Days Qty: 30 0RF alum-mag hydroxide-simeth [Mag-Al Plus] 200-200-20 mg/5 mL Suspension 30 ml PO Q4HR PRN (Reason: Upset Stomach/Indigestion) Qty: 3000 0RF oxycodone-acetaminophen 5-325 mg Tablet 1 tab PO Q6HR MDD 20 PRN (Reason: Pain Scale 4-10(Mod-Sev) 30 Days Qty: 30 0RF simethicone 80 mg Tablet,Chewable 80 mg PO QID PRN (Reason: Gas) Qty: 60 0RF Nephro-Jerri 0.8 mg Tablet 1 tab PO QDAY 30 Days Qty: 30 0RF Continued atorvastatin 40 mg tablet 40 mg PO DAILY Patient Comments: TAKE 1 TABLET BY MOUTH ONCE DAILY ergocalciferol (vitamin D2) 1,250 mcg (50,000 unit) capsule 1 cap PO [facility] insulin lispro 100 unit/mL insulin pen 5 unit SUBCUT TIDACHS Patient Comments: INJECT 8-9 UNITS SUBCUTANEOUSLY THREE TIMES DAILY PLUS SCALE (151-200) 2 UNITS EXTRA, (201-250) 3 UNITS EXTRA, (251-300) 4 UNITS EXTRA, (OVER 300) 5 UNITS EXTRA pantoprazole [Protonix] 40 mg Tablet,Delayed Release (Dr/Ec) 40 mg PO BID Qty: 60 2RF Rx Instructions: TAKE 1 TABLET BY MOUTH TWICE A DAY 30 MIN. BEFORE MEALS acetaminophen [Aminofen] 325 mg tablet 650 mg PO Q6H PRN (Reason: pain) ascorbic acid (vitamin C) [Vitamin C] 250 mg tablet 250 mg PO QDAY gabapentin 300 mg capsule 300 mg PO TID megestrol 400 mg/10 mL (40 mg/mL) suspension 400 mg PO QDAY methocarbamol 500 mg tablet 500 mg PO BID qobvitjd-qgx-rpakqoy sulfate 15 mg iron tablet 1 tab PO QDAY nystatin [Klayesta] 100,000 unit/gram powder 1 applic topical QDAY Discontinued ciprofloxacin HCl [Cipro] 500 mg tablet 500 mg PO BID Qty: 14 0RF Referrals: Emiliano Rosas MD [Primary Care Provider] - Patient/Caregiver Discharge Instructions Education Materials: Nutrition for Wound Healing, Preventing Pressure Sores, Pressure Injury Dc, Changing Dressing Dc, Wound Care Dc Print Language: Romanian Stand Alone Forms: Patient Portal Info Letter Discharge Order Discharge Orders: Discharge (Routine); Ordered 01/07/25 Ordered By: Anjel Blancas Quality Discharge Quality Measures VTE prophylaxis Attestestation MD Attestation I have discussed and was present for the essential components of the discharge history, physical examination, diagnosis, and discharge treatment plan with the resident. I agree with the patient's discharge care as documented by the resident and amended herein by me. Israel Kitchen DO. The patient understood all discharge instructions, all questions were answered satisfactorily. The patient was instructed to return to the Emergency Department is symptoms worsened or persisted. Patient was stable, afebrile and tolerating p.o. intake at time of discharge. Patient will be on both ertapenem and vancomycin until 09 February per infectious disease recommendations. See resident note above for additional details. Although this document has been carefully reviewed, there may still be some phonetic and other typographical errors. These errors are purely grammatical due to imperfections in the software program and should not be construed in any way to compromise the substance of the patient's medical care during this visit.
[2025-01-07] MEDS: VANCOMYCIN/NS 500 MG IVPB 100 ML 129 MG IV (10:34)
[2025-01-07 12:00] VITALS: BP 154/68; PULSE 91; RESP 18; TEMP 36.3; O2SAT 94
--- NOTE | 2025-01-07 15:44 | PC.SS ---
Carlos A requested extension to 1700 for ETA
[2025-01-07 16:00] VITALS: BP 143/65; PULSE 87; RESP 17; TEMP 36.6; O2SAT 99
== END 2025-01-07 17:25 | disposition skilled nursing facility (03) | DRG 673 ==
LOC: SERX 12-26 05:47 → SERHOLD 12-26 11:15 → S3SX 12-27 05:42 → SERHOLD 01-06 12:10
PROVIDERS: Emergency Medicine; Internal Medicine Cardiovascular Disease; Internal Medicine Infectious Disease; Student in an Organized Health Care Education/Training Program; Surgery; Admitting Provider Internal Medicine; Emergency Provider Student in an Organized Health Care Education/Training Program; PCP Family Medicine; Visit Provider Student in an Organized Health Care Education/Training Program
PROC: (CPT 93312; principal; 2025-01-03 12:00)
PROC: 0JPT0WZ Removal of Totally Implantable Vascular Access Device from Trunk Subcutaneous Tissue and Fascia, Open Approach (ICD-10-PCS; CPT 36590; principal; 2025-01-06 15:00)
DX: T83.511A Infection and inflammatory reaction due to indwelling urethral catheter, initial encounter (principal); L89.154 Pressure ulcer of sacral region, stage 4; T80.211A Bloodstream infection due to central venous catheter, initial encounter; E11.52 Type 2 diabetes mellitus with diabetic peripheral angiopathy with gangrene; M46.28 Osteomyelitis of vertebra, sacral and sacrococcygeal region; R78.81 Bacteremia; Z16.12 Extended spectrum beta lactamase (ESBL) resistance; E87.20 Acidosis, unspecified; N82.3 Fistula of vagina to large intestine; L97.229 Non-pressure chronic ulcer of left calf with unspecified severity; N39.0 Urinary tract infection, site not specified; E11.69 Type 2 diabetes mellitus with other specified complication; E11.65 Type 2 diabetes mellitus with hyperglycemia; E78.5 Hyperlipidemia, unspecified; Y84.6 Urinary catheterization as the cause of abnormal reaction of the patient, or of later complication, without mention of misadventure at the time of the procedure; K80.20 Calculus of gallbladder without cholecystitis without obstruction; R31.29 Other microscopic hematuria; N32.9 Bladder disorder, unspecified; D50.9 Iron deficiency anemia, unspecified; K82.8 Other specified diseases of gallbladder; I35.0 Nonrheumatic aortic (valve) stenosis; Z99.3 Dependence on wheelchair; N32.89 Other specified disorders of bladder; I10 Essential (primary) hypertension; Y84.8 Other medical procedures as the cause of abnormal reaction of the patient, or of later complication, without mention of misadventure at the time of the procedure; B96.20 Unspecified Escherichia coli [E. coli] as the cause of diseases classified elsewhere; B95.7 Other staphylococcus as the cause of diseases classified elsewhere; Z92.3 Personal history of irradiation; Z90.710 Acquired absence of both cervix and uterus; Z85.42 Personal history of malignant neoplasm of other parts of uterus; Z22.322 Carrier or suspected carrier of Methicillin resistant Staphylococcus aureus; Z79.899 Other long term (current) drug therapy; Z87.440 Personal history of urinary (tract) infections; Z89.511 Acquired absence of right leg below knee; Z89.611 Acquired absence of right leg above knee; Z93.3 Colostomy status; Z85.43 Personal history of malignant neoplasm of ovary; Z79.4 Long term (current) use of insulin; Z93.2 Ileostomy status; Z88.5 Allergy status to narcotic agent
CPT/HCPCS: 36415; 71045; 74177; 80048; 80053; 80061; 80202; 81001; 83036; 83540; 83550; 83605; 83735; 84100; 84145; 84443; 85014; 85018; 85025; 85610; 85652; 85730; 86140; 86803; 87040; 87077; 87081; 87086; 87186; 93306; 93312; 96365; 96366; 96367; 96368; 96372; 96375; 99152; 99285; A4217; A4649; C1751; C1894; G0378; J0696; J1335; J1642; J1650; J1815; J2250; J2371; J2470; J2704; J3370; J3371; J3475; J3490; J7040; J7050; Q9967; A9270

== ENCOUNTER 2025-01-24 09:45 | Outpatient (AMB) | payer MEDICARE, MEDICAID, SELFPAY ==
[2025-01-24 10:04] VITALS: BP 145/69; PULSE 91; RESP 18; TEMP 36.1; O2SAT 99; BMI 28.3
--- NOTE | 2025-01-24 10:04 | PD.GSCLVISIT ---
Vital Signs - [facility] 01/24/25 10:04 Height 1.63 m Height Method Stated Weight 74.843 kg Weight Measurement Method Stated by Patient BMI 28.3 BP 145/69 H Blood Pressure Source Automatic Cuff Blood Pressure Location Right Upper Arm Position Sitting Respiration 18 Pulse 91 Pulse Source Monitor Temp 96.9 F Temp Source Temporal Artery Scan Pulse Oximetry (%) 99 Oxygen Delivery Method Room Air Med/Allergies Allergies & Medications Allergies fentanyl Adverse Reaction (Mild, Verified 01/24/25 10:05) Numbness latex Adverse Reaction (Mild, Verified 01/24/25 10:05) RASH morphine Adverse Reaction (Unknown, Verified 01/24/25 10:05) Medication Reconciliation atorvastatin 40 mg tablet 40 mg PO DAILY 04/03/22 [History Confirmed 01/24/25] ergocalciferol (vitamin D2) 1,250 mcg (50,000 unit) capsule 1 cap PO WMHS 04/03/22 [History Confirmed 01/24/25] insulin lispro 100 unit/mL subcutaneous pen 5 unit subcut TIDACHS 04/03/22 [History Confirmed 01/24/25] pantoprazole 40 mg tablet,delayed release (Protonix) 40 mg PO BID #60 tabs 04/04/22 [Rx Confirmed 01/24/25] acetaminophen 325 mg tablet (Aminofen) 650 mg PO Q6H PRN pain 12/26/24 [History Confirmed 01/24/25] ascorbic acid (vitamin C) 250 mg tablet (Vitamin C) 250 mg PO QDAY 12/26/24 [History Confirmed 01/24/25] gabapentin 300 mg capsule 300 mg PO TID 12/26/24 [History Confirmed 01/24/25] megestrol 400 mg/10 mL (40 mg/mL) oral suspension 400 mg PO QDAY 12/26/24 [History Confirmed 01/24/25] methocarbamol 500 mg tablet 500 mg PO BID 12/26/24 [History Confirmed 01/24/25] multivitamin with minerals-ferrous sulfate 15 mg iron tablet 1 tab PO QDAY 12/26/24 [History Confirmed 01/24/25] nystatin 100,000 unit/gram topical powder (Klayesta) 1 applic topical QDAY 12/26/24 [History Confirmed 01/24/25] aluminum-mag hydroxide-simethicone 200 mg-200 mg-20 mg/5 mL oral susp (Mag-Al Plus) 30 ml PO Q4HR PRN Upset Stomach/Indigestion #3,000 mL 01/07/25 [Rx Confirmed 01/24/25] calamine 8 %-zinc oxide 8 % lotion 1 applic top UD PRN Itching #177 mL 01/07/25 [Rx Confirmed 01/24/25] collagenase clostridium histo. 250 unit/gram topical ointment (Santyl) 1 applic top QDAY #90 grams 01/07/25 [Rx Confirmed 01/24/25] diphenhydramine HCl 25 mg capsule (Banophen) 25 mg PO HS 30 days #30 caps 01/07/25 [Rx Confirmed 01/24/25] oxycodone-acetaminophen 5 mg-325 mg tablet 1 tab PO Q6HR PRN Pain Scale 4-10(Mod-Sev 30 days #30 tabs 01/07/25 [Rx Confirmed 01/24/25] simethicone 80 mg chewable tablet 80 mg PO QID PRN Gas #60 tabs 01/07/25 [Rx Confirmed 01/24/25] vitamin B complex-vitamin C-folic acid 0.8 mg tablet (Nephro-Jerri) 1 tab PO QDAY 30 days #30 tabs 01/07/25 [Rx Confirmed 01/24/25] MA Intake Visit Data Collection New Patient or Established: Established Patient (seen at [facility] within 3 years) Reason for Visit:: HOSPITAL F/U Pain Present Currently: Yes Pain scale:: 8 Pain Scale Used: Oliver-Saul/[employer] Utility Person Required: No PCP or OBGYN visit in last 3 months: Yes Hx Now: No Do You Feel Safe at Home: Yes Authorities Contacted: N/A Smoking Status Smoking Status: Never smoker Immunization / Flu Flu Vaccine in the Last 12 Months: Yes Flu Vaccine Exclusion Criteria: Already Received Past Medical History Past Medical History NEUROLOGIC: Negative Neurological Disorders, Alzheimer's Disease, Brain Tumor, Seizures, Amyotrophic Lateral Sclerosis (ALS/Shiloh Gehrig's) or Berman's Palsy CARDIAC: Positive Hypertension; Negative Cardiac Disorders, Myocardial Infarction, Cardiac Arrhythmia, Atrial Fibrillation, Angina, Heart Murmur, Coronary Artery Disease, Atherosclerotic Heart Disease, Peripheral Vascular Disease, Hypercholesterolemia, Aneurysm, Congestive Heart Failure, Congenital Heart Disease, Valvular Heart Disease, Rheumatic Fever, Cardiomyopathy, Edema, Pericarditis, Cellulitis, Deep Vein Thrombosis or Varicose Veins RESPIRATORY: Negative Chronic Obstructive Pulmonary Disease (COPD), Asthma, Bronchitis, Emphysema, Pneumonia, Pulmonary Fibrosis, Cystic Fibrosis, Tuberculosis, Pulmonary Embolism, Pulmonary Edema or Sleep Apnea GASTROINTESTINAL: Positive Hemorrhoids and Gastroesophageal Reflux Disease; Negative Gastrointestinal Disorders, Hepatitis, Cirrhosis, Celiac Disease, Gall Bladder Disease, Gastrointestinal Bleed, Esophageal Varices, Olson's Esophagus, Colitis, Diverticulitis, Diverticulosis, Ulcer, Crohn's Disease, Obstructive Bowel or Hiatal Hernia GENITOURINARY: Positive Genitourinary Disorders; Negative Renal Disease, Kidney Stones, Inguinal Hernia or Dialysis REPRODUCTIVE: Negative Endometriosis, Genital Herpes, Gonorrhea, Pelvic Inflammatory Disease, Previous Pregnancies, Syphilis or Uterine Prolapse MUSCULOSKELETAL: Negative Muscular Dystrophy, Myasthenia Gravis, Marfan's Syndrome, Arthritis, Rheumatoid Arthritis, Osteoporosis, Gout, Scoliosis, Carpal Tunnel Syndrome, Fibromyalgia, Fractures, Degenerative Joint Disease, Osteomyelitis or Poliovirus ENT: Negative Cataracts, Glaucoma, Blind, Retinal Detachment, Macular Degeneration, Ear Infection, Deafness or Eye Prosthesis ENDOCRINE: Positive Diabetes Mellitus Type 2; Negative Endocrine Disorders, Diabetes Mellitus Type 1, Hypoglycemia, Sonny's Syndrome, Fremont's Disease, Hyperthyroidism, Hypothyroidism, Parathyroid Disease, Pituitary Disease, Systemic Lupus Erythematosus, Syndrome of Inappropriate Antidiuretic Hormone (SIADH), Adrenal Disease or Graves' Disease HEMATOLOGIC: Negative Blood Disorders, Anemia, Leukemia, Hemophilia, Thalassemia or Sickle Cell Disease PSYCHO/SOCIAL: Positive Depression and Anxiety; Negative Psychiatric Problems, Schizophrenia, Recreational Drug Use, Self-Mutilation, Attention Deficit Disorder, Attention Deficit Hyperactivity Disorder, Depression or Post Traumatic Stress Disorder OTHER HISTORY: Positive Hospitalization, Falls, Chicken Pox, Cancer and Ovarian Cancer; Negative Autoimmune Disease, Down Syndrome, Autism, Developmental Delay, Blood Transfusions, Blood Transfusion Reaction, Anesthesia Reactions, Human Immunodeficiency Virus (HIV), Measles, Rubella (Uzbek Measles) or Pertussis Family History FAMILY HISTORY: Positive Family Cardiac Disorders and Family Gastrointestinal Problems; Negative Family Psychiatric Problems, Family Respiratory Disorders or Family Anesthesia Reaction Surgical History SURGICAL: Positive Bowel Surgery and Hysterectomy; Negative Cardiac Surgery, Valve Replacement, Coronary Stent, Pacemaker, Angiogram, Auto Implanted Cardiovert Defib, Endocrine Surgery, Thyroidectomy, Ear Surgery, Tympanostomy Tube, Eye Surgery, Oral Surgery, Tonsillectomy, Adenoidectomy, Cochlear Implant, Corneal Transplant, Throat Surgery, Abdominal Surgery, Tracheostomy, Gastric Bypass Surgery, Gastrostomy, Nephrectomy, Transurethral Resection, Joint Replacement, Amputation, Open Reduction Internal Fixation, Arthroscopy, Neurologic Surgery, Mastectomy, Lumpectomy, Tubal Ligation, Section or Vasectomy Social History SMOKING STATUS: Smoking status: Never smoker SECOND HAND EXPOSURE: second hand exposure: No ALCOHOL: Alcohol Intake: Never HOUSING: Housing: House LIVES WITH: Lives With: Alone Travel Risk Travel Hx Recent Travel: No HPI HPI Narrative 64F with HLD, DMII, PAD s/p R AKA admitted 12/26-01/07/25 for reid concerns, incidentally noted to have chronic sacral decubitus ulcer and left lower extremity wounds for which I performed bedside debridement 12/27 here for follow up. Pt reports feeling well overall, she is receiving daily wound care at her facility and her pain is controlled. She has not yet had an appt at Wound Healing and is unsure if she has any appt with the surgeon who performed her R AKA ROS Review of Systems Systems Reviewed: All systems reviewed, normal except as documented Objective/Exam General General Appearance: alert, cooperative and well groomed Resp Respiratory exam: Absent respiratory distress Extremities Extremities exam: Present other (R AKA wound well-healed with no drainage, no erythema; LLE ulceration at the lateral lower leg with minimal necrotic skin, surrounded by beefy red granulation tissue, no erythema, no fluctuance or drainage) Assessment & Plan Diagnosis / Problem List (1) Lower extremity ulceration: Status: Acute Assessment & Plan: 64F with HLD, DMII, PAD s/p R AKA admitted for reid concerns, incidentally noted to have chronic sacral decubitus ulcer and left lower extremity wounds s/p debridement 12/27, gradually recovering. I explained that follow up at Wound Healing and with the surgeon who performed her AKA will be best going forward, however pt is encouraged to reach out with any concerns or questions Plan: Refer to Wound Healing Follow up with previous surgeon Orders: Referrals Wound Healing L89.159 - Pressure ulcer of sacral region, unspecified stage, L97.909 - Non-pressure chronic ulcer of unspecified part of unspecified lower leg with unspecified severity Advanced Care Planning Advance care planning discussed with:: other Office Procedures GNS Level of Care Nursing/Assessment Patient Status: Established Patient Nursing Assessment/Reassesment: Medication Reconciliation, Update PMH in EMR and Vital Signs Coordination of Care: Complex Care and Chronic Disease 1-5, Education Complex Pt/Fam, Consent,records obtained, informed consent, Results/Orders obtained and Staff clarify orders Established Patient Charge Established Patient Point Assignment: 95 Established Patient Point Charge: Level 3 (80-115) Patient Portal Questionaires Social History Living Situation History Housing: House Housing Other:: Lives alone, is independent Tobacco History Smoking Status: Never smoker Second Hand Smoke Exposure: No Alcohol History Alcohol Intake: Never Domestic Abuse History Do You Feel Safe at Home: Yes Review of Systems Report any current symptoms Only answer those that you have currently: Past Medical History Past Medical History Have you ever been diagnosed with any of the following: Neurological Problems Alzheimer's Disease: No Brain Tumor: No Seizures: No Amyotrophic Lateral Sclerosis (ALS/Shiloh Gehrig's): No Berman's Palsy: No Cardiology Problems Myocardial Infarction: No Cardiac Arrhythmia: No Atrial Fibrillation: No Angina: No Heart Murmur: No Coronary Artery Disease: No Atherosclerotic Heart Disease: No Peripheral Vascular Disease: No Hypercholesterolemia: No Aneurysm: No Congestive Heart Failure: No Congenital Heart Disease: No Valvular Heart Disease: No Rheumatic Fever: No Cardiomyopathy: No Edema: No Pericarditis: No Cellulitis: No Deep Vein Thrombosis: No Hypertension: Yes Varicose Veins: No Respiratory Problems Chronic Obstructive Pulmonary Disease (COPD): No Asthma: No Bronchitis: No Emphysema: No Pneumonia: No Pulmonary Fibrosis: No Tuberculosis: No Pulmonary Embolism: No Pulmonary Edema: No Sleep Apnea: No Stomache/Intestinal Problems Hepatitis: No Cirrhosis: No Celiac Disease: No Gall Bladder Disease: No Gastrointestinal Bleed: No Esophageal Varices: No Olson's Esophagus: No Colitis: No Diverticulitis: No Diverticulosis: No Ulcer: No Crohn's Disease: No Obstructive Bowel: No Hiatal Hernia: No Hemorrhoids: Yes Gastroesophageal Reflux Disease: Yes Genital/Urinary Problems Renal Disease: No Kidney Stones: No Inguinal Hernia: No Dialysis: No Reproductive Problems Endometriosis: No Genital Herpes: No Gonorrhea: No Pelvic Inflammatory Disease: No Previous Pregnancies: No Syphilis: No Uterine Prolapse: No Musculoskeletal Problems Muscular Dystrophy: No Myasthenia Gravis: No Marfan's Syndrome: No Arthritis: No Rheumatoid Arthritis: No Osteoporosis: No Gout: No Scoliosis: No Carpal Tunnel Syndrome: No Fibromyalgia: No Fractures: No Degenerative Joint Disease: No Osteomyelitis: No Poliovirus: No Head,Eye,Nose,Throat Problems Cataracts: No Glaucoma: No Blind: No Retinal Detachment: No Macular Degeneration: No Chronic Ear Infections: No Deafness: No Eye Prosthesis: No Endocrine Problems Diabetes Mellitus Type 1: No Diabetes Mellitus Type 2: Yes Hypoglycemia: No Sonny's Syndrome: No Fremont's Disease: No Hyperthyroidism: No Hypothyroidism: No Parathyroid Disease: No Pituitary Disease: No Systemic Lupus Erythematosus: No Syndrome of Inappropriate Antidiuretic Hormone: No Adrenal Disease: No Graves' Disease: No Blood Problems Anemia: No Leukemia: No Hemophilia: No Thalassemia: No Sickle Cell Disease: No Psychologic Problems Schizophrenia: No Recreational Drug Use: No Depression: Yes Anxiety: Yes Self-Mutilation: No Attention Deficit Disorder: No Attention Deficit Hyperactivity Disorder: No Depression: No Post Traumatic Stress Disorder: No Other Problems Hospitalization: Yes Autoimmune Disease: No Down Syndrome: No Autism: No Developmental Delay: No Falls: Yes Blood Transfusions: No Blood Transfusion Reaction: No Anesthesia Reactions: No Human Immunodeficiency Virus (HIV): No Chicken Pox: Yes Measles: No Rubella (Uzbek Measles): No Pertussis: No Cancer: Yes Ovarian Cancer: Yes Surgical History Valve Replacement: No Hysterectomy: Yes Pacemaker: No Thyroidectomy: No
== END 2025-01-24 10:54 | disposition home or self-care (01) ==
PROVIDERS: PCP Family Medicine; Referring Provider Family Medicine; Supervising Provider Surgery; Visit Provider Surgery
DX: L89.159 Pressure ulcer of sacral region, unspecified stage (principal)
CPT/HCPCS: 99213; G0463

== ENCOUNTER 2025-01-25 10:12 | Outpatient (RCR) | payer MEDICARE, MEDICAID, SELFPAY ==
--- NOTE | 2025-01-25 11:16 | CTCFLWUP_ITS ---
[facility] [address] [place], [place] [address] FOLLOW-UP NOTE Date: 01/25/2025 MR#: [id number] Name: MONTY MOORE : 1960 Dx: C54.1 Malignant neoplasm of endometrium Identification. Patient with ROMAN/BSO uterine carcinoma [facility] 2015 with vaginal recurrence 2018 with external beam and brachytherapy 2018 along with chemotherapy in [facility]. 2021. 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 Please see inpatient note 07/2025. 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 Patient recently saw general surgeon who performed debridement of the sacrum and left lateral lower extremity wounds. CT 12/25/2024 revealed large soft tissue ulceration in the posterior lower back with osteomyelitis being a concern. There was also a 3 cm enhancing mass contiguous with the anterior urinary bladder. Saw urologist Dr. Rand who felt that while patient was admitted with sepsis was not safe to do procedure at the time. Spoke to the patient and the staff at [facility] who brought patient. Right now there is a real concern about recurrence in the pelvic area or possibly a new primary site in the bladder. The most convenient thing for patient would be for Dr. Rand who has already seen patient who has spoken about performing cystoscopy and biopsy of the bladder region and perhaps the adjacent pelvic tissues to check for uterine cancer recurrence. I was unable to reach him today but I will make contact about scheduling her for the procedure that was previously discussed. I In the meantime asked her to return in 2 months. Cc: Dennis Rand MD Electronically signed by: Arash Meyer M.D. 01/25/2025 11:14 AM
== END 2025-02-16 23:59 | disposition home or self-care (01) ==
LOC: SCTC 10:12
PROVIDERS: PCP Family Medicine; Referring Provider Radiology Therapeutic Radiology; Visit Provider Radiology Therapeutic Radiology
DX: Z08 Encounter for follow-up examination after completed treatment for malignant neoplasm (principal); Z85.42 Personal history of malignant neoplasm of other parts of uterus; Z92.3 Personal history of irradiation; Z90.710 Acquired absence of both cervix and uterus; Z90.722 Acquired absence of ovaries, bilateral; N32.89 Other specified disorders of bladder
CPT/HCPCS: 99212; G0463

== ENCOUNTER → 2025-02-01 | Outpatient (CLI) | payer MEDICARE, MEDICAID, SELFPAY ==
[2025-02-01 14:04] VITALS: BMI 25.0
--- NOTE | 2025-02-01 15:27 | SUR.PREOP ---
Pt resides at [facility], came in with FREDO Us, instructions given to pt and Abeba to keep NPO after MN, pt to come in at 1100 tomorrow.
[2025-02-01 15:28] LABS: Basophils % (Auto) 0 % (0-2.5); Eosinophils # (Auto) 0.7 Thou/mm3 (0.0-0.5); Eosinophils % (Auto) 7 % (0-10); Hematocrit 24.8 % (36.0-46.0); Immature Granulocytes % (Auto) 0 % (0-0); Immature Granulocytes Auto 0.05 Thou/mm3 (0.00-0.00); Lymphocytes % (Auto) 27 % (10-50); Mean Corpuscular HGB Conc 32.3 g/dl (31.0-37.0); Mean Corpuscular Hemoglobin 28.7 pg (25.0-35.0); Mean Corpuscular Volume 89 fL (80-100); Monocytes # (Auto) 0.9 Thou/mm3 (0.0-0.8); Monocytes % (Auto) 8 % (0-12); Neutrophils # (Auto) 6.5 Thou/mm3 (1.8-7.7); Neutrophils % (Auto) 58 % (37-80); Nucleated Red Blood Cell % 0 /100 WBC (0); Platelet Count 359 Thou/mm3 (140-440); RDW Standard Deviation 46.3 fL (36.4-46.3); Red Blood Count 2.79 Miln/mm3 (4.00-5.20); White Blood Count 11.3 Thou/mm3 (3.6-11.0)
[2025-02-01 15:46] LABS: Alanine Aminotransferase 16 U/L (10-49); Albumin, Serum 3.5 gm/dL (3.4-4.8); Alkaline Phosphatase 109 U/L (46-116); Anion Gap 9 (7-16); Aspartate Amino Transferase 15 U/L (0-34); BUN/Creatinine Ratio 35 Ratio (12-20); Bilirubin,Total 0.2 mg/dL (0.3-1.2); Blood Urea Nitrogen 28 mg/dL (9-23); Calcium 8.5 mg/dL (8.3-10.6); Calcium (Corrected) 8.9 mg/dL (8.5-10.1); Carbon Dioxide 17.6 mMol/L (20.0-31.0); Chloride 112 mMol/L (98-107); Creatinine (Component) 0.8 mg/dL (0.6-1.3); Estimated Creatinine Clearance 63.1 mL/min (>60); Globulin 3.4 gm/dL (2.3-3.5); Glucose 138 mg/dL (74-106); Osmolality,Calculated 285 (275-295); Potassium 4.2 mMol/L (3.4-5.1); Sodium 139 mMol/L (136-145); Total Protein 6.9 gm/dL (5.7-8.2); eGFR > 60 See Note
== END | disposition home or self-care (01) ==
LOC: SLAB 02-03 08:11
PROVIDERS: Anesthesiology; PCP Hospitalist; Referring Provider Urology; Visit Provider Urology
PROC: 0T7B8ZZ Dilation of Bladder, Via Natural or Artificial Opening Endoscopic (ICD-10-PCS; principal; 2025-02-02 13:00)
PROC: 0T5B8ZZ Destruction of Bladder, Via Natural or Artificial Opening Endoscopic (ICD-10-PCS; 2025-02-02 13:00)
DX: N32.89 Other specified disorders of bladder (principal)
CPT/HCPCS: 36415; 80053; 85025

== ENCOUNTER 2025-02-09 06:47 | Day surgery (SDC) | payer MEDICARE, MEDICAID, SELFPAY ==
--- NOTE | 2025-02-08 14:47 | SUR.PREOP ---
Sarai nurse at [facility] was given instructions to have pt at [facility] for procedure at 0600, pt to be kept NPO after MN.
[2025-02-09] VITALS (7 sets, daily range): BP systolic 123–152; BP diastolic 55–73; PULSE 87–94; RESP 13–16; TEMP 36.4; O2SAT 100; BMI 26.1
[2025-02-09 08:41] LABS: Basophils % (Auto) 0 % (0-2.5); Eosinophils # (Auto) 0.7 Thou/mm3 (0.0-0.5); Eosinophils % (Auto) 7 % (0-10); Hematocrit 23.8 % (36.0-46.0); Immature Granulocytes % (Auto) 0 % (0-0); Immature Granulocytes Auto 0.03 Thou/mm3 (0.00-0.00); Lymphocytes # (Auto) 2.8 Thou/mm3 (1.0-4.8); Lymphocytes % (Auto) 28 % (10-50); Mean Corpuscular HGB Conc 32.4 g/dl (31.0-37.0); Mean Corpuscular Hemoglobin 29.2 pg (25.0-35.0); Mean Corpuscular Volume 90 fL (80-100); Monocytes # (Auto) 0.7 Thou/mm3 (0.0-0.8); Monocytes % (Auto) 7 % (0-12); Neutrophils # (Auto) 5.7 Thou/mm3 (1.8-7.7); Neutrophils % (Auto) 58 % (37-80); Nucleated Red Blood Cell % 0 /100 WBC (0); Platelet Count 334 Thou/mm3 (140-440); RDW Standard Deviation 46.2 fL (36.4-46.3); Red Blood Count 2.64 Miln/mm3 (4.00-5.20); White Blood Count 9.9 Thou/mm3 (3.6-11.0)
[2025-02-09 08:56] LABS: Hemoglobin 7.7 g/dL (12.0-16.0)
[2025-02-09 09:07] LABS: Alanine Aminotransferase 15 U/L (10-49); Albumin, Serum 3.1 gm/dL (3.4-4.8); Albumin/Globulin Ratio 0.9 (1.2-2.2); Alkaline Phosphatase 95 U/L (46-116); Anion Gap 8 (7-16); Aspartate Amino Transferase 14 U/L (0-34); BUN/Creatinine Ratio 34 Ratio (12-20); Bilirubin,Total 0.2 mg/dL (0.3-1.2); Blood Urea Nitrogen 27 mg/dL (9-23); Calcium 8.6 mg/dL (8.3-10.6); Calcium (Corrected) 9.3 mg/dL (8.5-10.1); Carbon Dioxide 17.9 mMol/L (20.0-31.0); Chloride 112 mMol/L (98-107); Creatinine (Component) 0.8 mg/dL (0.6-1.3); Estimated Creatinine Clearance 69.4 mL/min (>60); Globulin 3.3 gm/dL (2.3-3.5); Glucose 160 mg/dL (74-106); Osmolality,Calculated 283 (275-295); Potassium 3.9 mMol/L (3.4-5.1); Sodium 138 mMol/L (136-145); Total Protein 6.4 gm/dL (5.7-8.2); eGFR > 60 See Note
--- NOTE | 2025-02-09 10:06 | SUR.PHASEI ---
1006: Pt. AAOx4, vitals stable, breathing unlabored, no complaint of pain or naussea, reid catheter in place, colostomy bag in place, wound vac to ABD in place, no dressing from procedure, no blood noted, report recieved from MD Raman and Misha RN.
--- NOTE | 2025-02-09 10:17 | ESOP_ITS ---
Date of Procedure 02/09/25 Pre Op Diagnosis Endometrial carcinoma she went to [facility] in 2016 for the treatment, bladder tumor anterolateral wall, recurrence of endometrial carcinoma, neurogenic bladder, patient is catheter dependent osteomyelitis of sacrum Post Op Diagnosis Same Procedure Cystoscopic examination TURBT pelvic examination Findings Bladder tumor anterolateral wall versus catheter reaction Procedure Description Indication for procedure this is a 64-year-old female she had endometrial carcinoma for which she had treatment done at [facility]. Patient has neurogenic bladder has a indwelling catheter she was found to have a mass in the bladder. Dr. Meyer has asked me to do the cystoscopic examination and possible tissue diagnosis from the mass in the bladder procedure and complications of this were discussed with the patient in great detail informed consent is obtained Patient was brought to the operating room in a satisfactory condition after appropriate premedication she was put on the operating table in a spine position she was appropriately identified by the surgeon and operating room staff site scope and indications of the procedure were reconfirmed with the patient. Patient has indwelling Michel catheter which was removed. General anesthesia was given uneventfully patient was positioned in a dorsal lithotomy position parts were prepped and draped in the usual sterile fashion. 21 Khmer Collier cystoscope was used to do the cystourethroscopy examination of the urethra was unremarkable examination of the bladder and all the quadrant was carried out there was catheter reaction and ulceration in the posterior bladder wall was present both ureteral orifices were visualized effluxing clear urine. There was a mass anterolateral wall of the bladder. Next a cystoscope was withdrawn gently 25 resectoscope was introduced into the bladder. Resection of the tumor was carried out to get enough tissue for diagnosis and rest of the tumor was fulgurated. It could very well be a catheter reaction. At the end of the procedure no active bleeding was seen none #16 Michel catheter was inserted balloon was inflated with 10 cc of water, pelvic examination revealed no masses in the vaginal wall further examination with the cystoscope revealed mass in the anterior wall of the vagina patient after having tolerated the procedure well was sent to recovery room in a satisfactory condition. She will follow-up with medical oncologist and Dr. Meyer and she will see me in my office in 3 months. After I received the pathology report I will send the report to Dr. Meyer and medical oncologist Anesthesia GETA Pathology / specimen Other (Bladder tumor tissue) Estimated Blood Loss 0.5 Condition Stable Disposition PACU Surgeon Dennis Rand MD Surgical Staff Operation Date: 02/09/25 08:45 <No data on this case meets the specified criteria>
--- NOTE | 2025-02-09 11:06 | SUR.PHASEII ---
1106: Pt. AAOx4, vitals stable, breathing unlabored, no complaint of pain or nausea, reid catheter in place, colostomy bag in place, wound vac in place, no active bleed noted, pt. tolerated sips of diet soda well, pt. transferred to her Ti chair using a lift, pt. tolerated well. Gave discharge instructions to the pt. and her caregiver, both verbalized understanding and had no further questions. Pt. left with all personal belongings.
== END 2025-02-09 11:06 ==
PROVIDERS: Anesthesiology; PCP Hospitalist; Referring Provider Urology; Visit Provider Urology
PROC: 0T7B8ZZ Dilation of Bladder, Via Natural or Artificial Opening Endoscopic (ICD-10-PCS; CPT 52224; principal; 2025-02-09 08:30)
DX: N30.00 Acute cystitis without hematuria (principal); N31.9 Neuromuscular dysfunction of bladder, unspecified; N30.20 Other chronic cystitis without hematuria; Z85.42 Personal history of malignant neoplasm of other parts of uterus; E11.9 Type 2 diabetes mellitus without complications
CPT/HCPCS: 52224; 36415; 80053; 85025; A4217; A4649; C1894; J1100; J1580; J2371; J2704; J2765; J3490

== ENCOUNTER 2025-03-28 08:49 | Inpatient (IN) | payer MEDICARE, MEDICAID, SELFPAY ==
[2025-03-28] VITALS (9 sets, daily range): BP systolic 153–175; BP diastolic 58–98; PULSE 67–89; RESP 15–98; TEMP 36.2–36.7; O2SAT 96–100; BMI 25.0; BMI 25.5
--- NOTE | 2025-03-28 09:41 | EKG_ITS ---
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
--- NOTE | 2025-03-28 09:41 | XR_ITS ---
Examination examination: AP chest single view Technique one AP portable upright chest single view Date and time: March 28, 2025 0959 hours INDICATIONS: Coughing 3 days. FINDINGS: Subtle increased markings in both perihilar regions especially left upper lobe Normal heart size Moderate osteopenia IMPRESSION: Bilateral perihilar inflammatory disease pattern Suspicious for early pneumonia left upper lobe
[2025-03-28 10:07] LABS: Basophils % (Auto) 1 % (0-2.5); Eosinophils % (Auto) 12 % (0-10); Hematocrit 25.5 % (36.0-46.0); Hemoglobin 8.8 g/dL (12.0-16.0); Immature Granulocytes % (Auto) 0 % (0-0); Immature Granulocytes Auto 0.02 Thou/mm3 (0.00-0.00); Lymphocytes # (Auto) 2.1 Thou/mm3 (1.0-4.8); Lymphocytes % (Auto) 25 % (10-50); Mean Corpuscular HGB Conc 34.5 g/dl (31.0-37.0); Mean Corpuscular Hemoglobin 28.9 pg (25.0-35.0); Mean Corpuscular Volume 84 fL (80-100); Monocytes # (Auto) 0.8 Thou/mm3 (0.0-0.8); Monocytes % (Auto) 10 % (0-12); Neutrophils # (Auto) 4.5 Thou/mm3 (1.8-7.7); Neutrophils % (Auto) 53 % (37-80); Nucleated Red Blood Cell % 0 /100 WBC (0); Platelet Count 320 Thou/mm3 (140-440); RDW Standard Deviation 41.1 fL (36.4-46.3); Red Blood Count 3.04 Miln/mm3 (4.00-5.20); White Blood Count 8.4 Thou/mm3 (3.6-11.0)
--- NOTE | 2025-03-28 10:17 | PD.EDABDPN ---
ED Abdominal Pain RME/HPI General Chief Complaint: Abdominal Pain Stated complaint: ABDOMINAL PAIN Arrival date/time: 03/28/25 08:49 Limitations: no limitations RME / HPI RME / HPI narrative: 64 year old female with a history of diabetes, hyperlipidemia, ovarian cancer status post hysterectomy with bilateral oophorectomy, colon resection with ileostomy, and chronic indwelling Michel catheter presents to the [facility] from home for evaluation of abdominal pain beginning 3 days ago. She describes the pain as aching, primarily localized to the epigastric region. Accompanied by decreased appetite and reduced stool output, noting scant stool with increased gas in her ileostomy bag over the past three days. She denies fever, chills, chest pain, cough, or shortness of breath. Related Data Home Medications ?Medication ?Instructions ?Recorded ?Confirmed atorvastatin 40 mg tablet 40 mg PO DAILY 04/03/22 02/08/25 insulin lispro 100 unit/mL 5 unit subcut TIDACHS 04/03/22 02/08/25 subcutaneous pen acetaminophen 325 mg tablet 650 mg PO Q6H PRN pain 12/26/24 02/08/25 (Aminofen) ascorbic acid (vitamin C) 250 mg 250 mg PO QDAY 12/26/24 02/08/25 tablet (Vitamin C) gabapentin 300 mg capsule 300 mg PO TID 12/26/24 02/08/25 megestrol 400 mg/10 mL (40 mg/mL) 400 mg PO QDAY 12/26/24 02/08/25 oral suspension methocarbamol 500 mg tablet 500 mg PO BID 12/26/24 02/08/25 multivitamin with minerals-ferrous 1 tab PO QDAY 12/26/24 02/08/25 sulfate 15 mg iron tablet vancomycin 1,000 mg intravenous 1,000 g IV DAILY 02/01/25 02/08/25 injection Previous Rx's ?Medication ?Instructions ?Recorded pantoprazole 40 mg tablet,delayed 40 mg PO BID #60 tabs 04/04/22 release (Protonix) aluminum-mag hydroxide-simethicone 30 ml PO Q4HR PRN Upset 01/07/25 200 mg-200 mg-20 mg/5 mL oral susp Stomach/Indigestion #3,000 mL (Mag-Al Plus) calamine 8 %-zinc oxide 8 % lotion 1 applic top UD PRN Itching #177 mL 01/07/25 simethicone 80 mg chewable tablet 80 mg PO QID PRN Gas #60 tabs 01/07/25 Allergies Allergy/AdvReac Type Severity Reaction Status Date / Time fentanyl AdvReac Mild Numbness Verified 02/08/25 14:39 latex AdvReac Mild RASH Verified 02/08/25 14:39 morphine AdvReac Unknown Verified 02/08/25 14:39 Review of Systems Review of Systems Systems Reviewed: All systems reviewed, normal except as documented Past Medical History Past Medical History CARDIAC: Positive Cardiac Disorders (HTN) and Hypertension GASTROINTESTINAL: Positive Gastrointestinal Disorders (colostomy), Colorectal Cancer, Hemorrhoids and Gastroesophageal Reflux Disease GENITOURINARY: Positive Genitourinary Disorders (Michel catheter) MUSCULOSKELETAL: Positive Musculoskeletal Disorders (Right AKA) and Osteomyelitis (sacrum) HEMATOLOGIC: Positive Blood Disorders and Anemia PSYCHO/SOCIAL: Positive Depression and Anxiety OTHER HISTORY: Positive Hospitalization (surgery, osteomylitis), Falls, Blood Transfusions, Radiation Therapy, Chicken Pox, Cancer (Uterine), Colorectal Cancer and Ovarian Cancer Family History FAMILY HISTORY: Positive Family Cardiac Disorders and Family Gastrointestinal Problems Surgical History SURGICAL: Positive Bowel Surgery (colostomy), Amputation (Right AKA) and Hysterectomy Social History SMOKING STATUS: Former smoker SECOND HAND EXPOSURE: No ED Exam General Limitations: Present no limitations General appearance: Present alert and other (appears to be in pain, weak) Head Head exam: Present atraumatic Eye Eye exam: Present normal appearance, PERRL and EOMI ENT ENT exam: Present normal exam, normal oropharynx and mucous membranes moist Neck Neck exam: Present normal inspection, full ROM and trachea midline Chest Chest inspection: Present normal inspection and symmetric chest wall rise Respiratory Respiratory exam: Present normal lung sounds bilaterally Cardiovascular Cardiovascular exam: Present regular rate, normal rhythm and normal heart sounds Abdominal Exam Abdominal exam: Present other (colostomy bag with no stool, colostomy stoma without defect normal vascularization 1+ tender in the right upper quadrant, no masses, no rebound ) Extremities Exam Extremities exam: Present normal inspection and full ROM Back Exam Back exam: Present normal inspection and full ROM Neurological Exam Neurological exam: Present alert, oriented X3 and CN II-XII intact Psychiatric Psychiatric exam: Present normal affect and normal mood Skin Skin exam: Present warm, dry, intact and normal color Course Quality Measures none Orders Category Date Time Status COVID-19 Screening Questionnaire NOW Care 03/28/25 09:[address] Screening NOW Care 03/28/25 12:33 Active Administrative Assistant Coordinator NOW Care 03/28/25 09:41 Active Continuous Pulse Oximetry NOW Care 03/28/25 09:41 Completed Decision to Admit X1 Care 03/28/25 09:46 Completed EKG (ED ONLY) *Do not use* NOW Care 03/28/25 09:41 Completed Insert IV NOW Care 03/28/25 09:[address] abdomen pelvis w con Stat Exams 03/28/25 12:33 Completed EKG (ED Only) Stat Exams 03/28/25 09:41 Draft XR chest 1V portable Stat Exams 03/28/25 09:41 Completed Blood Culture (Lab) Stat Lab 03/28/25 17:35 Received CBC Stat Lab 03/28/25 10:00 Completed Comprehensive Metabolic Panel Stat Lab 03/28/25 10:31 Completed Lactic Acid [Lactate (Lactic Acid)] Stat Lab 03/28/25 17:35 Completed Lipase Stat Lab 03/28/25 10:31 Completed Partial Thromboplastin Time Stat Lab 03/28/25 10:31 Completed Prothrombin Time with INR Stat Lab 03/28/25 10:31 Completed Troponin I Stat Lab 03/28/25 10:31 Completed Urinalysis Stat Lab 03/28/25 11:13 Completed Ondansetron Inj [Zofran Inj] Med 03/28/25 09:40 Discontinued 4 mg IVP X1 ONE Pantoprazole Inj [Protonix Inj] Med 03/28/25 09:40 Discontinued 40 mg IVP X1 ONE Piper/Tazo 3.375 gm Premix [Zosyn] Med 03/28/25 17:01 Discontinued 3.375 gm in 50 ml IV X1 Sodium Chloride 0.9% 1000 ml [Ns] 1,000 ml Med 03/28/25 09:40 Discontinued IV 250 mls/hr Vancomycin/Ns 1 gm Ivpb 200 ml Med 03/28/25 17:01 Active IV X1 cefTRIAXone [Rocephin] 2 gm Med 03/28/25 14:17 Discontinued SODIUM CHLORIDE 0.9% (Popper) [Ns 0.9% (P)] 50 ml IV X1 cefTRIAXone/D5w 2gm [Rocephin/d5w 2gm] Med 03/28/25 14:45 Discontinued 2 gm in 50 ml IV X1 fentaNYL INJ [Sublimaze Inj] Med 03/28/25 09:42 Discontinued 50 mcg IVP X1 ONE Vital Signs Vital signs: Vital Signs Pulse Rate 67 03/28/25 09:41 Abdominal Pain MDM MDM Narrative [facility] Narrative:: Shavon Boyce am scribing for and in the presence of Dr. Lopez. The patient requires further evaluation to determine the need for additional treatment, with consideration for infectious disease and orthopedic consultation. Admission is recommended for continued assessment of osteomyelitis and potential treatment requirements. IV antibiotics with Zosyn and Vancomycin will be initiated, and blood cultures will be obtained. An orthopedic consult will be considered for management of chronic osteomyelitis. The previously noted osteomyelitis on CT scans is associated with a prior abscess on the patient's back. She was placed in rehab, where she received 6-8 weeks of IV therapy but subsequently lost follow-up. On reassessment, she reports lower back pain but denies fever or chills. Patient data External records reviewed:: [facility] previous records (I reviewed H&P on 02/01/2025 ) and EMS form Clinical information provided by:: patient and EMS Social determinants that could affect healthcare access:: none Patient has the following chronic illnesses:: diabetes, hyperlipidemia, ovarian cancer status post hysterectomy with bilateral oophorectomy, colon resection with ileostomy, and chronic indwelling Michel catheter How is presenting disease/condition affected by chronic disease/condition?: exacerbated by Evaluation data The following diagnostics were reviewed and interpreted by me:: lab results, radiology exam(s) and EKG tracing(s) (EKG 03/28/2025 @ 09:48 AM. Sinus rhythm, rate 80, no STEMI. ) Lab and/or radiology exams considered but not ordered:: None Interpretation Summary: Ordering Physician: Carmine Lopez MD Date of Service: 03/28/25 Procedure(s): XR chest 1V portable Accession Number(s): [id number] cc: Carmine Lopez MD; Emiliano Rosas MD; Anjum Ro MD~ Examination examination: AP chest single view Technique one AP portable upright chest single view Date and time: March 28, 2025 0959 hours INDICATIONS: Coughing 3 days. FINDINGS: Subtle increased markings in both perihilar regions especially left upper lobe Normal heart size Moderate osteopenia IMPRESSION: Bilateral perihilar inflammatory disease pattern Suspicious for early pneumonia left upper lobe Dictated By: Anjum Ro MD Signed By: <Electronically signed by Anjum Ro MD in OV> 03/28/25 1039 Ordering Physician: Carmine Lopez MD Date of Service: 03/28/25 Procedure(s): CT abdomen pelvis w con Accession Number(s): [id number] cc: Carmine Lopez MD; Emiliano Rosas MD; Anjum Ro MD~ Examination: CT abdomen with intravenous contrast CT pelvis with intravenous contrast 2-D coronal reconstructions 2-D sagittal reconstructions Date and time of exam:March 28, 2025 1508 hours Comparison December 26, 2024 INDICATIONS: Generalized abdominal pain today. CTDI: vol (mGy) 9.93 DLP: (mGycm) 584 Technique: Multiple axial sections of the abdomen and pelvis have been obtained. 64 slice high-resolution scanner used. 3 mm axial sections have been obtained, post intravenous injection 60 cc Isovue-[id number] 2-D sagittal, coronal reconstructions obtained. Low dose protocols were performed. One or more of the following dose reduction techniques were used; automated exposure control, adjustment of the mA and/or KV according to patient size, use of iterative reconstruction technique. Findings: Atelectasis in the lower lung ruiz No focal liver or splenic lesions No gallstones No pancreatic mass No renal or ureteral calculi, no hydronephrosis Left ostomy Heavy abdominal aortic calcification No bowel obstruction No abdominal or pelvic abscess Diffuse nonspecific colitis pattern Prominent thickening of the urinary bladder wall Again noted soft tissue infection posterior lower back destroying coccygeal segments, osteomyelitis pattern Severe osteopenia IMPRESSION: No renal or ureteral calculi, no hydronephrosis No bowel obstruction Normal appendix Again noted soft tissue infection posterior lower back destroying coccygeal segments Dictated By: Anjum Ro MD Signed By: <Electronically signed by Anjum Ro MD in OV> 03/28/25 1521 Medications / Prescriptions Medications or Prescriptions considered but not ordered:: None Medication administrations:: Medication Administration History Vancomycin/Sodium Chloride (Vancomycin/Ns 1 Gm Ivpb) 200 mls @ 120 mls/hr IV X1 ONE Stop: 03/28/25 18:40 Last Admin: 03/28/25 17:41 Dose: 120 mls/hr Documented By: BRAEDEN Discontinued Medications Fentanyl Citrate (Fentanyl Cit Inj 50 Mcg/Ml Amp 2ml) 50 mcg IVP X1 ONE Stop: 03/28/25 09:43 Last Admin: 03/28/25 10:23 Dose: Not Given Documented By: BRAEDEN Non-Admin Reason: Allergy Sodium Chloride (Ns) 1,000 mls @ 250 mls/hr IV .Q4H ONE Stop: 03/28/25 13:39 Last Infusion: 03/28/25 16:35 Dose: Infused Documented By: Admin: 03/28/25 10:21 Dose: 250 mls/hr Documented By: BRAEDEN Ceftriaxone Sodium 2 gm/ (Sodium Chloride) 50 mls @ 100 mls/hr IV X1 ONE Stop: 03/28/25 14:46 Last Admin: 03/28/25 14:43 Dose: Not Given Documented By: BRAEDEN Non-Admin Reason: Discontinued Ceftriaxone Sodium/Dextrose (Rocephin/D5w 2gm) 2 gm in 50 mls @ 100 mls/hr IV X1 ONE Stop: 03/28/25 15:14 Last Infusion: 03/28/25 16:33 Dose: Infused Documented By: Admin: 03/28/25 14:45 Dose: 100 mls/hr Documented By: BRAEDEN Piperacillin/Tazobactam/Dextrose (Zosyn) 3.375 gm in 50 mls @ 100 mls/hr IV X1 ONE Stop: 03/28/25 17:30 Last Admin: 03/28/25 17:41 Dose: 100 mls/hr Documented By: BRAEDEN Ondansetron HCl (Ondansetron Inj 2 Mg/Ml Inj 2 Ml) 4 mg IVP X1 ONE; Protocol Stop: 03/28/25 09:41 Last Admin: 03/28/25 10:20 Dose: 4 mg Documented By: BRAEDEN Pantoprazole Sodium (Pantoprazole Inj 40 Mg Vial) 40 mg IVP X1 ONE Stop: 03/28/25 09:41 Last Admin: 03/28/25 10:19 Dose: 40 mg Documented By: BRAEDEN See above Consultations Consultation(s) initiated? (list below): Yes Consultation #1 (Physician, Specialty, Details): I spoke with resident Tara Bates working with Dr. Ang. Discussed patients PMHx, HPI, ED course, exam findings, labs, and radiology results. The hospitalist agree to accept the patient for admission. Diagnosis Differential diagnosis abdominal pain: abdominal pain, constipation, diverticulitis and small bowel obstruction Most likely diagnosis given after review of the tests above:: Abdominal pain Osteomyelitis of the coccyx Admission Indicated Admission indicated?: indicated Admission Request Was there a request for admission?: Yes Admission Attestation Admission request attestation: Discussed case with [] from Hospitalist service regarding admission. Discussed patients ED course, exam findings, labs, and radiology results. The Hospitalist [agrees,declines] to accept the patient for admission. Disposition Plan Disposition Plan: Admit Discharge Plan Plan Patient Disposition: Admit Acute Care w/in Hospital Prescriptions/Referrals Prescriptions/Med Rec: No Action atorvastatin 40 mg tablet 40 mg PO DAILY Patient Comments: TAKE 1 TABLET BY MOUTH ONCE DAILY insulin lispro 100 unit/mL insulin pen 5 unit SUBCUT TIDACHS Patient Comments: INJECT 8-9 UNITS SUBCUTANEOUSLY THREE TIMES DAILY PLUS SCALE (151-200) 2 UNITS EXTRA, (201-250) 3 UNITS EXTRA, (251-300) 4 UNITS EXTRA, (OVER 300) 5 UNITS EXTRA pantoprazole [Protonix] 40 mg Tablet,Delayed Release (Dr/Ec) 40 mg PO BID Qty: 60 2RF Rx Instructions: TAKE 1 TABLET BY MOUTH TWICE A DAY 30 MIN. BEFORE MEALS acetaminophen [Aminofen] 325 mg tablet 650 mg PO Q6H PRN (Reason: pain) ascorbic acid (vitamin C) [Vitamin C] 250 mg tablet 250 mg PO QDAY gabapentin 300 mg capsule 300 mg PO TID megestrol 400 mg/10 mL (40 mg/mL) suspension 400 mg PO QDAY methocarbamol 500 mg tablet 500 mg PO BID [id number]-[id number] sulfate 15 mg iron tablet 1 tab PO QDAY calamine-zinc oxide 8-8 % Lotion 1 applic top UD PRN (Reason: Itching) Qty: 177 0RF alum-mag hydroxide-simeth [Mag-Al Plus] 200-200-20 mg/5 mL Suspension 30 ml PO Q4HR PRN (Reason: Upset Stomach/Indigestion) Qty: 3000 0RF simethicone 80 mg Tablet,Chewable 80 mg PO QID PRN (Reason: Gas) Qty: 60 0RF vancomycin 1,000 mg recon soln 1,000 g IV DAILY Referrals: Emiliano Rosas MD [Primary Care Provider] - In 1 week Problem List Clinical Impression: Abdominal pain, Chronic osteomyelitis of lumbar spine Patient/Caregiver Discharge Instructions Print Language: Turkish Stand Alone Forms: Fide Award Info., Patient Portal Info Letter
[2025-03-28] MEDS: PANTOPRAZOLE INJ 40 MG VIAL IVP (10:19)
[2025-03-28] MEDS: ONDANSETRON INJ 2 MG/ML INJ 2 ML 4 MG IVP (10:20)
[2025-03-28] MEDS: SODIUM CHLORIDE 0.9% 1000 ML 1,000 ML 250 ML IV (10:21)
[2025-03-28 10:54] LABS: INR 1.1 (0.9-1.3); Partial Thromboplastin Time 31.3 Seconds (22.0-36.0)
[2025-03-28 10:58] LABS: Alanine Aminotransferase 14 U/L (10-49); Albumin, Serum 3.6 gm/dL (3.4-4.8); Alkaline Phosphatase 90 U/L (46-116); Anion Gap 8 (7-16); BUN/Creatinine Ratio 19 Ratio (12-20); Bilirubin,Total 0.2 mg/dL (0.3-1.2); Blood Urea Nitrogen 13 mg/dL (9-23); Calcium (Corrected) 9.3 mg/dL (8.5-10.1); Carbon Dioxide 30.6 mMol/L (20.0-31.0); Chloride 96 mMol/L (98-107); Creatinine (Component) 0.7 mg/dL (0.6-1.3); Estimated Creatinine Clearance 72.1 mL/min (>60); Globulin 3.5 gm/dL (2.3-3.5); Glucose 159 mg/dL (74-106); Lipase 16 U/L (12-53); Osmolality,Calculated 273 (275-295); Potassium 3.8 mMol/L (3.4-5.1); Sodium 135 mMol/L (136-145); Total Protein 7.1 gm/dL (5.7-8.2); Troponin I < 0.002 ng/mL (0.0-0.045); eGFR > 60 See Note
[2025-03-28 11:19] LABS: Collection Type, Urine Clean Catch
--- NOTE | 2025-03-28 12:33 | XR_ITS ---
Examination: CT abdomen with intravenous contrast CT pelvis with intravenous contrast 2-D coronal reconstructions 2-D sagittal reconstructions Date and time of exam:March 28, 2025 1508 hours Comparison December 26, 2024 INDICATIONS: Generalized abdominal pain today. CTDI: vol (mGy) 9.93 DLP: (mGycm) 584 Technique: Multiple axial sections of the abdomen and pelvis have been obtained. 64 slice high-resolution scanner used. 3 mm axial sections have been obtained, post intravenous injection 60 cc Isovue-370 2-D sagittal, coronal reconstructions obtained. Low dose protocols were performed. One or more of the following dose reduction techniques were used; automated exposure control, adjustment of the mA and/or KV according to patient size, use of iterative reconstruction technique. Findings: Atelectasis in the lower lung ruiz No focal liver or splenic lesions No gallstones No pancreatic mass No renal or ureteral calculi, no hydronephrosis Left ostomy Heavy abdominal aortic calcification No bowel obstruction No abdominal or pelvic abscess Diffuse nonspecific colitis pattern Prominent thickening of the urinary bladder wall Again noted soft tissue infection posterior lower back destroying coccygeal segments, osteomyelitis pattern Severe osteopenia IMPRESSION: No renal or ureteral calculi, no hydronephrosis No bowel obstruction Normal appendix Again noted soft tissue infection posterior lower back destroying coccygeal segments
[2025-03-28 12:41] LABS: Amorphous Crystals,Urine Present (Absent); Bacteria,Urine 3+; Bilirubin,Urine Negative (Negative); Blood,Urine 1+ (Negative); Color,Urine Lt-Yellow (Lt Yel-Yel); Glucose, Urine Negative (Negative); Ketones,Urine Negative (Negative); Leukocyte Esterase,Urine Positive (Negative); Nitrite,Urine Negative (Negative); PH,Urine 7.5 (5.0-7.0); Protein,Urine Trace (Neg - Trace); RBC,Urine 4 /hpf (0-3); Specific Gravity,Urine 1.008 (1.001-1.035); Squamous Epithelial Cell,Urine 1 /hpf (0-5); Urobilinogen,Urine Negative mg/dL (0.0-1.0); WBC,Urine 27 /hpf (0-5)
[2025-03-28 12:52] LABS: Clarity,Urine Hazy (Clear/Hazy)
[2025-03-28] MEDS: cefTRIAXone/D5w 2gm 2 GM/50 ML BAG IV (14:45)
[2025-03-28] MEDS: VANCOMYCIN/NS 1 GM IVPB 200 ML IV (17:41)
[2025-03-28] MEDS: PIPER/TAZO 3.375 GM PREMIX 3.375 GM/50 ML BAG IV (17:41)
[2025-03-28 17:45] LABS: Lactate (Lactic Acid) 0.7 mMol/L (0.4-2.0)
--- NOTE | 2025-03-28 18:43 | PD.RESHP ---
Documentation for date of: 03/28/25 [facility] History of Present Illness History of present illness: 64-year-old female patient with significant medical history for endometrial carcinoma SP hysterectomy and bilateral salpingo oophorectomy ([facility] 2016), SP radiation and chemotherapy (until 2021), SP ileostomy (rectovaginal fistula in 2022), HLD, PAD SP right AKA (2021) and chronic indwelling Michel catheter (since 2022) bedbound from SNF for radiating epigastric abdominal pain for the last 3 weeks. Symptoms have progressed over time, pain is described as bone aching and epigastric region radiating to the left side of colostomy bag and going to the back. Pain is subsided with oxycodone. Patient also endorsing dysuria, nausea and decreased appetite for the last few weeks. Patient denied vomiting, fever, chills, constipation or other associate symptoms. 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 Patient was discharged on 01/07/2025 on PICC line to SNF. Patient completed IV antibiotics of ertapenem and vancomycin until 02/09/2025. Since her last discharge patient followed up with urologist Dr. Rand at which time patient underwent cystoscopy TURBT pelvic examination at which time samples were sent out for pathology and were found to be negative for malignancy. In ED vitals were significant for BP 160/58. CBC indicated Hgb 8.8, HCT 25%, MCV 84. CHEM labs indicated NA 135, glucose 159, UA was positive for UTI. Chest x-ray was unremarkable, abdomen pelvis CT indicated no calculi, no hydronephrosis, no bowel obstruction, but was noted for soft tissue infection posterior lower back and coccygeal segments. Patient will be admitted symptomatic UTI and osteomyelitis. 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, denied smoking cigarettes, denied drinking alcohol or using other illicit drugs, lives at SNF CODE STATUS: Limited code, no chest compression Review of Systems Review of Systems Systems Reviewed: All systems reviewed, normal except as documented Exam Vital Signs Temp Pulse Resp BP Pulse Ox O2 Del Method 97.8 F 89 20 175/98 H 99 Room Air 03/28/25 18:00 03/28/25 18:00 03/28/25 18:00 03/28/25 18:00 03/28/25 18:00 03/28/25 18:00 Narrative Exam Constitutional: AO x 3, follows command, in mild distress HEENT: NCAT, patent nares, moist mucous membranes Heart: Normal S1 and S2, no murmurs, no JVD Lungs: CTAB, no wheezing, no rhonchi Abdomen: Obese, soft, tender to palpation epigastric and left quadrant, functional ileostomy noted, bowel sounds present Genitourinary: No flank pain, no bladder tenderness on palpation Extremities: Right AKA, left third digit amputation Skin: Approximately 4.5 cm sacral ulcer, stage IV, bone visible Psychiatric: Appropriate affect, AO x 3, cooperative Results: Labs 03/29/25 04:42 03/29/25 04:42 Labs: Short CBC 03/28/25 Range/Units 10:00 WBC 8.4 (3.6-11.0) Thou/mm3 Hgb 8.8 L (12.0-16.0) g/dL Hct 25.5 L (36.0-46.0) % Plt Count 320 (140-440) Thou/mm3 BMP 03/28/25 10:31 Sodium 135 L Potassium 3.8 Chloride 96 L Carbon Dioxide 30.6 BUN 13 Creatinine 0.7 Glucose 159 H Calcium 9.0 Cardiac Enzymes 03/28/25 Range/Units 10:31 Troponin I < 0.002 (0.0-0.045) ng/mL Liver Function 03/28/25 Range/Units 10:31 Total Bilirubin 0.2 L (0.3-1.2) mg/dL ALT 14 (10-49) U/L Alkaline Phosphatase 90 (46-116) U/L Albumin 3.6 (3.4-4.8) gm/dL Urine 03/28/25 Range/Units 11:13 Urine Color Lt-Yellow (Lt Yel-Yel) Urine Clarity Hazy (Clear/Hazy) Urine pH 7.5 H (5.0-7.0) Ur Specific [place] 1.008 (1.001-1.035) Urine Protein Trace (Neg - Trace) Urine Glucose (UA) Negative (Negative) Quality Measures Quality Measures none Advance care planning discussed with:: other Medications Home Medications and Allergies Home Medications ?Medication ?Instructions ?Recorded ?Confirmed ?Type atorvastatin 40 mg tablet 40 mg PO HS 04/03/22 03/28/25 History insulin lispro 100 unit/mL 5 unit subcut TIDACHS 04/03/22 03/29/25 History subcutaneous pen acetaminophen 325 mg tablet 650 mg PO Q6H PRN pain 12/26/24 03/29/25 History (Aminofen) ascorbic acid (vitamin C) 250 mg 250 mg PO QDAY 12/26/24 03/28/25 History tablet (Vitamin C) gabapentin 300 mg capsule 300 mg PO TID 12/26/24 03/28/25 History megestrol 400 mg/10 mL (40 mg/mL) 400 mg PO QDAY 12/26/24 03/29/25 History oral suspension methocarbamol 500 mg tablet 500 mg PO BID 12/26/24 03/28/25 History multivitamin with minerals-ferrous 1 tab PO QDAY 12/26/24 03/29/25 History sulfate 15 mg iron tablet vancomycin 1,000 mg intravenous 1,000 g IV DAILY 02/01/25 03/29/25 History injection Diphenhydramine HCL 25 mg PO Q8HR PRN itching 03/28/25 03/28/25 History Milk of Magnesia 30 ml PO .every 72 PRN constipation 03/28/25 03/28/25 History ergocalciferol (vitamin D2) 1,250 1,250 mcg PO QWEEK 03/28/25 03/28/25 History mcg (50,000 unit) capsule ferrous sulfate 325 mg (65 mg 325 mg PO BID 03/28/25 03/28/25 History iron) tablet (FeroSul) insulin glargine 100 unit/mL (3 20 unit subcut BID 03/28/25 03/28/25 History mL) subcutaneous pen (Lantus Solostar U-100 Insulin) oxycodone-acetaminophen 5 mg-325 1 tab PO [id number] PRN pain 03/28/25 03/28/25 History mg tablet (Percocet) pantoprazole 20 mg tablet,delayed 20 mg PO QDAY 03/28/25 03/28/25 History release simethicone 80 mg chewable tablet 80 mg PO [id number] PRN Gas 03/28/25 03/28/25 History vitamin B complex-vitamin C-folic 1 tab PO QDAY 03/28/25 03/28/25 History acid 0.8 mg tablet (Nephro-Jerri) insulin lispro 100 unit/mL 1 sliding scale dose subcut 03/29/25 03/29/25 History subcutaneous solution (Humalog USEASDIRECTD U-100 Insulin) Allergies Allergy/AdvReac Type Severity Reaction Status Date / Time fentanyl AdvReac Mild Numbness Verified 02/08/25 14:39 latex AdvReac Mild RASH Verified 02/08/25 14:39 morphine AdvReac Unknown Verified 02/08/25 14:39 Visit Medications Acetaminophen (Acetaminophen 325 Mg Tablet) 650 mg PO Q6H PRN PRN Reason: Fever >101.5 Stop: 04/27/25 18:16 Doxycycline Hyclate (Doxycycline 100 Mg Tablet) 100 mg PO BID DEWAYNE Stop: 04/04/25 20:59 Heparin Sodium (Porcine) (Heparin Sod Inj 5000 Unit/Ml Vial) 5,000 unit SC Q8HR DEWAYNE Stop: 04/11/25 21:59 Hydromorphone HCl (Hydromorphone Inj 2 Mg/Ml Vial) 1 mg IVP Q4HR PRN PRN Reason: severe pain Stop: 04/02/25 18:33 Meropenem 1,000 mg/ Sodium (Chloride) 50 mls @ 100 mls/hr IV Q8HR DEWAYNE Stop: 04/04/25 21:59 Metoclopramide HCl (Metoclopramide Inj 5 Mg/Ml Vial 2 Ml) 10 mg IVP Q6H PRN; Protocol PRN Reason: NAUSEA OR VOMITING Stop: 04/27/25 18:21 Pantoprazole Sodium (Pantoprazole 40 Mg Tablet) 40 mg PO QDAY DEWAYNE Stop: 04/28/25 08:59 Discontinued Medications Fentanyl Citrate (Fentanyl Cit Inj 50 Mcg/Ml Amp 2ml) 50 mcg IVP X1 ONE Stop: 03/28/25 09:43 Last Admin: 03/28/25 10:23 Dose: Not Given Sodium Chloride (Ns) 1,000 mls @ 250 mls/hr IV .Q4H ONE Stop: 03/28/25 13:39 Last Infusion: 03/28/25 16:35 Dose: Infused Ceftriaxone Sodium 2 gm/ (Sodium Chloride) 50 mls @ 100 mls/hr IV X1 ONE Stop: 03/28/25 14:46 Last Admin: 03/28/25 14:43 Dose: Not Given Ceftriaxone Sodium/Dextrose (Rocephin/D5w 2gm) 2 gm in 50 mls @ 100 mls/hr IV X1 ONE Stop: 03/28/25 15:14 Last Infusion: 03/28/25 16:33 Dose: Infused Piperacillin/Tazobactam/Dextrose (Zosyn) 3.375 gm in 50 mls @ 100 mls/hr IV X1 ONE Stop: 03/28/25 17:30 Last Infusion: 03/28/25 18:31 Dose: Infused Vancomycin/Sodium Chloride (Vancomycin/Ns 1 Gm Ivpb) 200 mls @ 120 mls/hr IV X1 ONE Stop: 03/28/25 18:40 Last Admin: 03/28/25 17:41 Dose: 120 mls/hr Ondansetron HCl (Ondansetron Inj 2 Mg/Ml Inj 2 Ml) 4 mg IVP X1 ONE; Protocol Stop: 03/28/25 09:41 Last Admin: 03/28/25 10:20 Dose: 4 mg Pantoprazole Sodium (Pantoprazole Inj 40 Mg Vial) 40 mg IVP X1 ONE Stop: 03/28/25 09:41 Last Admin: 03/28/25 10:19 Dose: 40 mg Assessment & Plan Plan 64-year-old female patient with significant medical history for endometrial carcinoma SP hysterectomy and bilateral salpingo oophorectomy ([facility] 2016), SP radiation and chemotherapy (until 2021), SP ileostomy (rectovaginal fistula in 2022), HLD, PAD SP right AKA (2021) and chronic indwelling Michel catheter (since 2022) bedbound from SNF for radiating epigastric abdominal pain for the last 3 weeks. Patient aditted for ESBL UTI and osteomyelitis. #Catheter associated UTI #ESBL UTI #Indwelling Michel catheter #Hx of endometrial CA s/p hysterectomy #Abdominal pain On admission patient complaining of dysuria Urinalysis indicative of UTI Plan: -Started on meropenem IV -As needed acetaminophen for fever and mild pain -Infectious disease Dr Viera consulted, recommendations are greatly appreciated -Replace Michel catheter -Blood cultures and urine cultures ordered - Follow-up CBC #Coccygeal osteomyeltiis secondary to #Stage IV sacral ulcer #Severe PAD #S/p right AKA and left third digit amputation Patient with history of stage IV sacral ulcer and chronic osteomyelitis Patient completed IV ertapenem and vancomycin antibiotics through PICC line on 02/09/2025 Patient continues to have low back pain Plan: -Doxycycline p.o. -[place] morphine IV as needed for pain -ESR and CRP ordered -Blood cultures pending -Infectious disease Dr Viera consulted, recommendations are greatly appreciated -Wound care T2 IDDM HLD Normocytic anemia Last A1c of 7.6% on December 2024 Plan: -Started normal insulin sliding scale with Accu-Checks -Hypoglycemia protocol in place -Start home med atorvastatin after reconciliation ?Monitor Hgb, transfuse if less than 7 Health Maintenance Dispo: Patient admitted for UTI and osteomyelitis, ID consulted Diet: Low carb consistent DVT/PPx: Heparin GI ppx: Protonix Lines: PIV and Michel catheter Code Status: Limited code This patient care was discussed with my attending Dr. Sav Aguillon MD PGY-2 Disclaimer: Minor errors in estate conservator may be present since this note was dictated by speech recognition software. Attending Provider Attestation/Addendum Austen, Mariluz Ang DO, attest that I was physically present for the sanabria portions of the service and evaluated the patient with the resident and I reviewed and discussed the case with the resident and agree with the resident's findings and plans of care as documented above Patient is a 64-year-old female with past medical history of endometrial carcinoma status post hysterectomy and bilateral salpingo-oophorectomy, hyperlipidemia, PAD status post right BKA and chronic Michel catheter who presented to the ED due to abdominal pain. She reports that the pain is in her sternum that radiates to her back. Patient appears to have generalized pain upon palpation however, abdomen is soft and nondistended on exam. Colostomy is functioning with stool in the bag. Patient states her pain is controlled with oxycodone. CT abdomen and pelvis was done in the ED showing soft tissue infection posterior lower back and coccygeal segment which appears to be worse in comparison to last June. Patient was treated for osteomyelitis supposedly with IV antibiotics. However, patient and sister are very concerned due to worsening of osteomyelitis. Patient has a history of ESBL UTI. She is found to have 3+ bacteria in her UA. Will start with meropenem for broad-spectrum antibiotics and follow-up with urine cultures. Will place on doxycycline for suppressive therapy. Will have ID further evaluate patient. Will order ESR and CRP. Admit to med/surg for further workup and management of UTI.
[2025-03-28] MEDS: GABAPENTIN 300 MG CAPSULE PO (22:28)
[2025-03-28] MEDS: MEROPENEM INJ 1,000 MG in SODIUM CHLORIDE 0.9% (Popper) 50 ML 100 MG IV (22:34)
[2025-03-28 22:57] LABS: C-Reactive Protein 4.9 mg/dL (0.0-0.9)
[2025-03-28 22:59] LABS: Sed Rate (ESR) 57 mm/hr (0-30)
[2025-03-28] MEDS: oxyCODONE/APAP 5/325 TABLET 1 TAB PO (23:41)
[2025-03-29] VITALS (8 sets, daily range): BP systolic 115–150; BP diastolic 48–73; PULSE 70–87; RESP 16–100; TEMP 36.3–37.1; O2SAT 94–99; BMI 25.5
[2025-03-29 05:23] LABS: Basophils # (Auto) 0.1 Thou/mm3 (0.0-0.2); Basophils % (Auto) 1 % (0-2.5); Eosinophils # (Auto) 0.8 Thou/mm3 (0.0-0.5); Eosinophils % (Auto) 11 % (0-10); Hematocrit 24.9 % (36.0-46.0); Immature Granulocytes % (Auto) 0 % (0-0); Immature Granulocytes Auto 0.01 Thou/mm3 (0.00-0.00); Lymphocytes # (Auto) 2.2 Thou/mm3 (1.0-4.8); Lymphocytes % (Auto) 29 % (10-50); Mean Corpuscular HGB Conc 33.7 g/dl (31.0-37.0); Mean Corpuscular Hemoglobin 28.6 pg (25.0-35.0); Mean Corpuscular Volume 85 fL (80-100); Monocytes # (Auto) 0.6 Thou/mm3 (0.0-0.8); Monocytes % (Auto) 8 % (0-12); Neutrophils % (Auto) 52 % (37-80); Nucleated Red Blood Cell % 0 /100 WBC (0); Platelet Count 327 Thou/mm3 (140-440); RDW Standard Deviation 41.5 fL (36.4-46.3); Red Blood Count 2.94 Miln/mm3 (4.00-5.20); White Blood Count 7.7 Thou/mm3 (3.6-11.0)
[2025-03-29 05:44] LABS: Hemoglobin 8.4 g/dL (12.0-16.0)
[2025-03-29] MEDS: MEROPENEM INJ 1,000 MG in SODIUM CHLORIDE 0.9% (Popper) 50 ML 100 MG IV ×3 (06:00→21:21)
[2025-03-29] MEDS: oxyCODONE/APAP 5/325 TABLET 1 TAB PO ×2 (06:06→11:55)
[2025-03-29 06:10] LABS: Alanine Aminotransferase 11 U/L (10-49); Albumin, Serum 3.4 gm/dL (3.4-4.8); Albumin/Globulin Ratio 1.1 (1.2-2.2); Alkaline Phosphatase 83 U/L (46-116); Anion Gap 9 (7-16); BUN/Creatinine Ratio 14 Ratio (12-20); Bilirubin,Total < 0.2 mg/dL (0.3-1.2); Blood Urea Nitrogen 10 mg/dL (9-23); Calcium 8.7 mg/dL (8.3-10.6); Calcium (Corrected) 9.2 mg/dL (8.5-10.1); Carbon Dioxide 29.8 mMol/L (20.0-31.0); Chloride 98 mMol/L (98-107); Creatinine (Component) 0.7 mg/dL (0.6-1.3); Estimated Creatinine Clearance 78.5 mL/min (>60); Globulin 3.2 gm/dL (2.3-3.5); Glucose 164 mg/dL (74-106); Magnesium 1.6 mg/dL (1.6-2.6); Osmolality,Calculated 276 (275-295); Phosphorous 3.5 mg/dL (2.4-5.1); Potassium 4.2 mMol/L (3.4-5.1); Sodium 137 mMol/L (136-145); Total Protein 6.6 gm/dL (5.7-8.2); eGFR > 60 See Note
--- NOTE | 2025-03-29 07:43 | ESPR_ITS ---
<Statement entered by Brown Aguillon MD - 03/30/25 00:42> No significant overnight events. Patient is pending ID recommendation for coccygeal osteomyelitis until then we will continue meropenem and doxycycline antibiotics. I discussed with and supervised the internal controls manager physician involved in the care of this patient. Patient assessment and plan was discussed with entire medicine team, including my attending. I agree with the assessment and plan as documented by internal controls manager doctor. Patient care was discussed with my attending physician Dr. Sav Aguillon, PGY-2 Documentation for date of: 03/29/25 Subjective Subjective Interval history: No acute overnight events. Continues to have abdominal pain, although not worsening. Denies fever, chills, headaches, chest pain, sob, cough, GI or urinary symptoms. Stable, vitals are stable. CBC relatively unchanged, no leukocytosis. CMP relatively stable. Continue ANTIBIOTICS for UTI and osteomyelitis. Pending ID recommendations for coccygeal osteomyelitis. Exam Vital Signs Temp Pulse Resp BP Pulse Ox O2 Del Method 98.1 F 79 16 115/56 L 99 Room Air 03/29/25 07:28 03/29/25 07:28 03/29/25 07:28 03/29/25 07:28 03/29/25 07:28 03/29/25 04:00 Narrative Exam Constitutional: AO x 3, follows command, in mild distress HEENT: NCAT, patent nares, moist mucous membranes Heart: Normal S1 and S2, no murmurs, no JVD Lungs: CTAB, no wheezing, no rhonchi Abdomen: Obese, soft, tender to palpation epigastric and left quadrant, functional ileostomy noted, bowel sounds present Genitourinary: No flank pain, no bladder tenderness on palpation Extremities: Right AKA, left third digit amputation Skin: Approximately 4.5 cm sacral ulcer, stage IV, bone visible Psychiatric: Appropriate affect, AO x 3, cooperative Objective Labs 03/30/25 05:36 03/30/25 05:36 Labs: Laboratory Results - last 24 hr 03/28/25 03/28/25 03/28/25 10:00 10:31 11:13 WBC 8.4 RBC 3.04 L Hgb 8.8 L Hct 25.5 L MCV 84 MCH 28.9 MCHC 34.5 RDW Std Deviation 41.1 Plt Count 320 Neut % (Auto) 53 Lymph % (Auto) 25 Cochran % (Auto) 10 Eos % (Auto) 12 H Baso % (Auto) 1 Neut # (Auto) 4.5 Lymph # (Auto) 2.1 Cochran # (Auto) 0.8 Eos # (Auto) 1.0 H Baso # (Auto) 0.0 Immature Gran # (Auto) 0.02 H Absolute Nucleated RBC 0.00 Immature Gran % 0 Nucleated RBC % 0 ESR PT 12.0 INR 1.1 APTT 31.3 Sodium 135 L Potassium 3.8 Chloride 96 L Carbon Dioxide 30.6 Anion Gap 8 BUN 13 Creatinine 0.7 Estim Creat Clear Calc 72.1 eGFR > 60 BUN/Creatinine Ratio 19 Glucose 159 H Calculated Osmolality 273 L Lactic Acid Calcium 9.0 Corrected Calcium 9.3 Phosphorus Magnesium Total Bilirubin 0.2 L ALT 14 Alkaline Phosphatase 90 Troponin I < 0.002 C-Reactive Prot, Quant Total Protein 7.1 Albumin 3.6 Globulin 3.5 Albumin/Globulin Ratio 1.0 L Lipase 16 Ur Collection Type Clean Catch Urine Color Lt-Yellow Urine Clarity Hazy Urine pH 7.5 H Ur Specific [place] 1.008 Urine Protein Trace Urine Glucose (UA) Negative Urine Ketones Negative Urine Blood 1+ A Urine Nitrite Negative Urine Bilirubin Negative Urine Urobilinogen (Auto) Negative Ur Leukocyte Esterase Positive Urine RBC 4 H Urine WBC 27 H Ur Squamous Epith Cells 1 Amorphous Crystals Present A Urine Bacteria 3+ A 03/28/25 03/28/25 03/29/25 17:35 22:25 04:42 WBC 7.7 RBC 2.94 L Hgb 8.4 L Hct 24.9 L MCV 85 MCH 28.6 MCHC 33.7 RDW Std Deviation 41.5 Plt Count 327 Neut % (Auto) 52 Lymph % (Auto) 29 Cochran % (Auto) 8 Eos % (Auto) 11 H Baso % (Auto) 1 Neut # (Auto) 4.0 Lymph # (Auto) 2.2 Cochran # (Auto) 0.6 Eos # (Auto) 0.8 H Baso # (Auto) 0.1 Immature Gran # (Auto) 0.01 H Absolute Nucleated RBC 0.00 Immature Gran % 0 Nucleated RBC % 0 ESR 57 H PT INR APTT Sodium 137 Potassium 4.2 Chloride 98 Carbon Dioxide 29.8 Anion Gap 9 BUN 10 Creatinine 0.7 Estim Creat Clear Calc 78.5 eGFR > 60 BUN/Creatinine Ratio 14 Glucose 164 H Calculated Osmolality 276 Lactic Acid 0.7 Calcium 8.7 Corrected Calcium 9.2 Phosphorus 3.5 Magnesium 1.6 Total Bilirubin < 0.2 L ALT 11 Alkaline Phosphatase 83 Troponin I C-Reactive Prot, Quant 4.9 H Total Protein 6.6 Albumin 3.4 Globulin 3.2 Albumin/Globulin Ratio 1.1 L Lipase Ur Collection Type Urine Color Urine Clarity Urine pH Ur Specific [place] Urine Protein Urine Glucose (UA) Urine Ketones Urine Blood Urine Nitrite Urine Bilirubin Urine Urobilinogen (Auto) Ur Leukocyte Esterase Urine RBC Urine WBC Ur Squamous Epith Cells Amorphous Crystals Urine Bacteria Quality Measures Quality Measures none Advance care planning discussed with:: patient Assessment & Plan Assessment Current Active Medications: Generic Name Dose Route Start Last Admin Trade Name Freq PRN Reason Stop Dose Admin Acetaminophen 650 mg 03/28/25 18:17 Acetaminophen 325 Mg Tablet PO 04/27/25 18:16 Q6H PRN Fever >101.5 Dextrose 25 ml 03/28/25 21:09 Dextrose 50%-Water Inj 50 Ml Syringe IV 04/27/25 21:08 Q15MIN PRN BG 50-70 responsive npo pt Dextrose 50 ml 03/28/25 21:09 Dextrose 50%-Water Inj 50 Ml Syringe IV 04/27/25 21:08 Q15MIN PRN BG <50 OR BG <70 & pt unresponsive Doxycycline Hyclate 100 mg 03/28/25 21:00 03/28/25 22:38 Doxycycline 100 Mg Tablet PO 04/04/25 20:59 Not Given BID DEWAYNE Gabapentin 300 mg 03/28/25 22:00 03/29/25 06:07 Gabapentin 300 Mg Capsule PO 04/27/25 21:59 Not Given TID DEWAYNE Glucagon 1 mg 03/28/25 21:09 Glucagon Inj 1 Mg Vial IM Q15MIN PRN BG <70, and no IV access Heparin Sodium (Porcine) 5,000 unit 03/28/25 22:00 03/29/25 06:08 Heparin Sod Inj 5000 Unit/Ml Vial SC 04/11/25 21:59 Not Given Q8HR DEWAYNE Hydralazine HCl 10 mg 03/28/25 18:45 Hydralazine Inj 20 Mg/Ml Vial IVP 04/27/25 18:44 Q4H PRN Hypertension Meropenem 1,000 mg/ Sodium 50 mls @ 100 mls/hr 03/28/25 22:00 03/29/25 06:00 Chloride IV 04/04/25 21:59 100 mls/hr Q8HR DEWAYNE Administration Insulin Human Lispro 0 unit 03/29/25 07:30 Insulin Lispro (Admelog) 1 Unit/0.01 Ml Unit SC 04/28/25 07:29 AC DEWAYNE Protocol Metoclopramide HCl 10 mg 03/28/25 18:22 Metoclopramide Inj 5 Mg/Ml Vial 2 Ml IVP 04/27/25 18:21 Q6H PRN NAUSEA OR VOMITING Protocol Oxycodone/Acetaminophen 1 tab 03/28/25 23:19 03/29/25 06:06 Oxycodone/Apap 5/325 Tablet PO 04/02/25 23:18 1 tab Q6HR PRN Administration pain Pantoprazole Sodium 40 mg 03/29/25 09:00 Pantoprazole 40 Mg Tablet PO 04/28/25 08:59 QDAY [facility] Plan 64-year-old female patient with significant medical history for endometrial carcinoma SP hysterectomy and bilateral salpingo oophorectomy ([facility] 2016), SP radiation and chemotherapy (until 2021), SP ileostomy (rectovaginal fistula in 2022), HLD, PAD SP right AKA (2021) and chronic indwelling Michel catheter (since 2022) bedbound from SNF for radiating epigastric abdominal pain for the last 3 weeks. Patient aditted for ESBL UTI and osteomyelitis. Appreciate recommendations from ID team. Catheter associated UTI ESBL UTI Indwelling Michel catheter Hx of endometrial CA s/p hysterectomy Abdominal pain On admission patient complaining of dysuria Urinalysis indicative of UTI CT redemonstrated soft tissue infection of the posterior lower back destroying coccygeal segment, normal appendix, no bowel obstruction, no renal calculi, no hydronephrosis. Urine culture earlier this year grew ESBL. Urinary catheter exchanged. ? Continue MEROPENEM (03/28 to present) ? Pending blood and urine cultures ? Pending ID recommendations Coccygeal osteomyeltiis secondary to Stage IV sacral ulcer Severe PAD S/p right AKA and left third digit amputation Chronic stage IV sacral ulcer and chronic osteomyelitis. S/p IV ERTAPENEM and VANCOMYCIN through PICC line on 02/09/2025. CT redemonstrated soft tissue infection of the posterior lower back ESR 57, CRP 4.9. ? Continue DOXYCYCLINE (03/28 to present) ? HYDROMORPHONE IV for pain ? Pending blood culture ? Wound care ? Pending ID recs ? Pending repeat ESR/CRP T2 IDDM Last A1c of 7.6% on December 2024 ? INSULIN sliding scale ? Accu-Cheks ? Pending repeat A1c HLD ? Continue home ATORVASTATIN 40 mg daily Normocytic anemia ? Holding iron supplement in setting of active infection ? Daily CBC ? Transfuse if Hgb less than 7 Health maintenance Diet: Carb consistent GI prophylaxis: PROTONIX DVT prophylaxis: HEPARIN subcu Antibiotics: MEROPENEM CODE STATUS: Limited code Disposition: Pending ID recommendations Case was discussed with attending physician and senior resident. Thomas Pacheco DO PGYI Attending Provider Attestation/Addendum I, Mariluz Ang DO, attest that I was physically present for the sanabria portions of the service and evaluated the patient with the resident and I reviewed and discussed the case with the resident and agree with the resident's findings and plans of care as documented above Patient seen eval this a.m. Patient continues to complain of abdominal pain that goes up into her chest that is deep in her bones. Patient states that she takes Percocet daily. Will switch out her Michel catheter at this time. Will give naloxegol due to chronic opioid use. Pending ID demetrio
[2025-03-29] MEDS: DOXYCYCLINE 100 MG TABLET PO ×2 (09:20→21:22)
[2025-03-29] MEDS: PANTOPRAZOLE 40 MG TABLET PO (09:20)
--- NOTE | 2025-03-29 09:38 | PC.NURSE ---
refused to turn and lower agus of bed
--- NOTE | 2025-03-29 10:00 | PC.NURSE ---
Notified by EXCELLENCE COACH that pt is refusing turn schedule, stating she is comfortable on her back. Spoke with pt and pt endorsed the same to RN.
--- NOTE | 2025-03-29 11:54 | PC.NURSE ---
Pt. blood sugar 177, asked if instead of 3units of insulin she could have 1 unit instead, RN replied that that was not possible at this time, pt became upset and refused any insulin, RN clarified that the doctor would have to be notified but the scale ordered was a sliding scale based on her history of insulin tolerance. Pt continued to refuses, RN stated to inservice RN that this would be marked as a non-admin because pt didn't want the current ordered dose of insulin. Pt became more upset, but RN assured pt that the doctor would be notified so that changes could be made. Inservice RN then asked patient what her pain was on a scale of 1-10 as the patient had requested via call light for pain medication prior to RN arrival with insulin, pt stated pain was 0, RN clarified that due to the medication instructions, that meant that the patient had no pain and RN could not administer pain medication, attempted to explain to patient that if she felt pain, she needed to rate it at some level on the pain scale, pt became distraught and wanted to call sister on phone. Pt endorsed on phone to sister that RN was refusing to give her pain medication and said that she had pain in her back, stomach and everywhere exact words 'en mi espalda, estomago, y todo'. Pt is both bahraini and swiss speaking, as well as sister. RN asked to speak with the sister, pt allowed this. RN spoke with sister that she was attempting to explain to the patient how the pain scale works, that the rating of her pain dictates what medication the RN is allowed to give, as that is how medication ordering in the hospital works. Pt sister at first was upset, asking 'if she's saying no pain now but ten seconds ago she did or ten seconds from now she does, does that mean you just won't give it to her? RN replied that no, that is not the case, reexplained that the patient saying her pain was a 0 indicates no pain at all, and that in order to administer medication per licensure RN must adhere to pain scales as ordered by the physician. Sister expressed understanding and asked what the problem with the insulin was, RN explained that at this time RN cannot adjust the dosage but can call the physician and explain the situation and the physician can then make changes to the order. Sister asked how long that would take, RN stated that unfortunately it could take anywhere from 10 minutes to hours, depending on how busy the physician is, and the physician may choose to not order an insulin dose for this time and instead have the next dose adjusted for the normal scheduled time (for this pt, before meals). Pt sister endorsed understanding, and explained to the patient. The patient expressed understanding and rated her pain at a 'greater than 10' which was subsequently documented as a 10 as that is the pain scale maximum. Pain medication intervention was provided, see MAR.
--- NOTE | 2025-03-29 12:00 | PC.SS ---
Ni Elliott is a 64-year-old female admitted to Med Surg for Abd Pain. SS conducted bedside contact with the patient to complete initial assessment and to discuss discharge planning. Role and reason explained. Patient confirmed demographic information. Patient identifies her sister Mayra Schmid [phone] as her surrogate decision maker. Pt states she is unable to complete all ADL?s independently, requires gifty lift and max assist. She is currently residing at [facility], pt wishes to return. Pts PCP is Dr. Rosas. Pt will need transport and possesses [employer] transport, SS will arrange at the time of DC. No further intervention required at this time, public health social worker would be available to address any further concerns. DC Plan: [facility] Contact: Mayra Schmid [phone] PCP: Ralph
--- NOTE | 2025-03-29 12:06 | PC.SS ---
Updated clinicals sent via [facility] to [facility]
[2025-03-29] MEDS: HEPARIN SOD INJ 5000 UNIT/ML VIAL SC ×2 (14:33→21:22)
[2025-03-29] MEDS: GABAPENTIN 300 MG CAPSULE PO ×2 (14:33→21:22)
--- NOTE | 2025-03-29 14:53 | PC.SS ---
Rounding: Pt still in lots of pain, no DC
--- NOTE | 2025-03-29 17:01 | PC.NURSE ---
continues to refuse q2 turns says no im comfortable
[2025-03-30] VITALS (9 sets, daily range): BP systolic 119–158; BP diastolic 59–74; PULSE 68–90; RESP 16–99; TEMP 36.4–37.5; O2SAT 98–100
[2025-03-30] MEDS: GABAPENTIN 300 MG CAPSULE PO ×3 (05:47→22:22)
[2025-03-30] MEDS: MEROPENEM INJ 1,000 MG in SODIUM CHLORIDE 0.9% (Popper) 50 ML 100 MG IV ×3 (05:47→22:08)
[2025-03-30] MEDS: HEPARIN SOD INJ 5000 UNIT/ML VIAL SC (05:48)
[2025-03-30] MEDS: NALOXEGOL OXALATE 25 MG TABLET (NON-FORMULARY) 12.5 MG PO (05:48)
[2025-03-30] MEDS: SOD HYPOCHLORITE 1/4 STR 473 ML BTL IRRIG (05:59)
[2025-03-30 06:20] LABS: Basophils % (Auto) 1 % (0-2.5); Eosinophils # (Auto) 0.7 Thou/mm3 (0.0-0.5); Eosinophils % (Auto) 8 % (0-10); Hematocrit 26.6 % (36.0-46.0); Immature Granulocytes % (Auto) 0 % (0-0); Immature Granulocytes Auto 0.03 Thou/mm3 (0.00-0.00); Lymphocytes # (Auto) 2.3 Thou/mm3 (1.0-4.8); Lymphocytes % (Auto) 27 % (10-50); Mean Corpuscular HGB Conc 33.1 g/dl (31.0-37.0); Mean Corpuscular Hemoglobin 28.8 pg (25.0-35.0); Mean Corpuscular Volume 87 fL (80-100); Monocytes # (Auto) 0.6 Thou/mm3 (0.0-0.8); Monocytes % (Auto) 7 % (0-12); Neutrophils # (Auto) 4.9 Thou/mm3 (1.8-7.7); Neutrophils % (Auto) 58 % (37-80); Nucleated Red Blood Cell % 0 /100 WBC (0); Platelet Count 302 Thou/mm3 (140-440); RDW Standard Deviation 42.3 fL (36.4-46.3); Red Blood Count 3.06 Miln/mm3 (4.00-5.20); White Blood Count 8.6 Thou/mm3 (3.6-11.0)
[2025-03-30 06:24] LABS: Hemoglobin 8.8 g/dL (12.0-16.0)
[2025-03-30 06:31] LABS: Glucose Estimated Average 151 mg/dL (80-131); Hemoglobin A1C 6.9 % Hgb (4.8-6.0)
[2025-03-30 06:48] LABS: Alanine Aminotransferase 11 U/L (10-49); Albumin, Serum 3.3 gm/dL (3.4-4.8); Alkaline Phosphatase 82 U/L (46-116); Anion Gap 11 (7-16); BUN/Creatinine Ratio 11 Ratio (12-20); Bilirubin,Total < 0.2 mg/dL (0.3-1.2); Blood Urea Nitrogen 8 mg/dL (9-23); C-Reactive Protein 3.6 mg/dL (0.0-0.9); Calcium 8.5 mg/dL (8.3-10.6); Calcium (Corrected) 9.1 mg/dL (8.5-10.1); Carbon Dioxide 27.5 mMol/L (20.0-31.0); Chloride 100 mMol/L (98-107); Creatinine (Component) 0.7 mg/dL (0.6-1.3); Estimated Creatinine Clearance 76.7 mL/min (>60); Globulin 3.2 gm/dL (2.3-3.5); Glucose 122 mg/dL (74-106); Magnesium 1.3 mg/dL (1.6-2.6); Osmolality,Calculated 274 (275-295); Phosphorous 2.8 mg/dL (2.4-5.1); Potassium 4.1 mMol/L (3.4-5.1); Sodium 138 mMol/L (136-145); Total Protein 6.5 gm/dL (5.7-8.2); eGFR > 60 See Note
[2025-03-30 07:56] LABS: Sed Rate (ESR) 58 mm/hr (0-30)
[2025-03-30] MEDS: Magnesium Sulfate 4 GM Ivpb 4 GM/50 ML BAG IV (08:57)
[2025-03-30] MEDS: PANTOPRAZOLE 40 MG TABLET PO (08:57)
[2025-03-30] MEDS: DOXYCYCLINE 100 MG TABLET PO ×2 (08:57→22:21)
[2025-03-30] MEDS: oxyCODONE/APAP 5/325 TABLET 1 TAB PO ×2 (08:57→18:41)
[2025-03-30] MEDS: SIMETHICONE 80 MG CHEW PO (11:43)
--- NOTE | 2025-03-30 12:13 | ESPR_ITS ---
<Statement entered by Brown Aguillon MD - 03/30/25 22:34> Patient complaining of abdominal pain post feeding. H. pylori antigen ordered along with consult for GI Dr. Lopez for possible EGD. Infectious disease Dr Viera recommended 6 weeks course of IV Rocephin 2 g along with p.o. 100 mg doxycycline. PICC line insertion ordered for tomorrow. I discussed with and supervised the international manager physician involved in the care of this patient. Patient assessment and plan was discussed with entire medicine team, including my attending. I agree with the assessment and plan as documented by international manager doctor. Patient care was discussed with my attending physician Dr. Sav Aguillon, PGY-2 Documentation for date of: 03/30/25 Subjective Subjective Interval history: No acute overnight events. Still having abdominal Pain, which appears to worsen after meals from what she explained. Also reports the problem is chronic, and had failed multiple GI agents in the past including PPIs. We ordered H. pylori test and have consulted GI. Otherwise, vitals are stable, labs relatively unchanged, afebrile, no leukocytosis. Continued on ANTIBIOTICS for now, pending GI recommendations. Exam Vital Signs Temp Pulse Resp BP Pulse Ox O2 Del Method 98.8 F 90 16 119/68 98 Room Air 03/30/25 08:00 03/30/25 09:00 03/30/25 08:00 03/30/25 09:00 03/30/25 08:00 03/30/25 08:00 Narrative Exam Constitutional: AO x 3, follows command, in mild distress HEENT: NCAT, patent nares, moist mucous membranes Heart: Normal S1 and S2, no murmurs, no JVD Lungs: CTAB, no wheezing, no rhonchi Abdomen: Obese, soft, tender to palpation epigastric and left quadrant, functional ileostomy noted, bowel sounds present Genitourinary: No flank pain, no bladder tenderness on palpation Extremities: Right AKA, left third digit amputation Skin: Approximately 4.5 cm sacral ulcer, stage IV, bone visible Psychiatric: Appropriate affect, AO x 3, cooperative Objective Labs 03/31/25 04:47 03/31/25 04:47 Labs: Laboratory Results - last 24 hr 03/30/25 05:36 WBC 8.6 RBC 3.06 L Hgb 8.8 L Hct 26.6 L MCV 87 MCH 28.8 MCHC 33.1 RDW Std Deviation 42.3 Plt Count 302 Neut % (Auto) 58 Lymph % (Auto) 27 [place] % (Auto) 7 Eos % (Auto) 8 Baso % (Auto) 1 Neut # (Auto) 4.9 Lymph # (Auto) 2.3 [place] # (Auto) 0.6 Eos # (Auto) 0.7 H Baso # (Auto) 0.0 Immature Gran # (Auto) 0.03 H Absolute Nucleated RBC 0.00 Immature Gran % 0 Nucleated RBC % 0 ESR 58 H Sodium 138 Potassium 4.1 Chloride 100 Carbon Dioxide 27.5 Anion Gap 11 BUN 8 L Creatinine 0.7 Estim Creat Clear Calc 76.7 eGFR > 60 BUN/Creatinine Ratio 11 L Glucose [address] Glu mg/dL 151 H Hemoglobin A1c 6.9 H Calculated Osmolality 274 L Calcium 8.5 Corrected Calcium 9.1 Phosphorus 2.8 Magnesium 1.3 L Total Bilirubin < 0.2 L ALT 11 Alkaline Phosphatase 82 C-Reactive Prot, Quant 3.6 H Total Protein 6.5 Albumin 3.3 L Globulin 3.2 Albumin/Globulin Ratio 1.0 L Quality Measures Quality Measures none Advance care planning discussed with:: patient Assessment & Plan Assessment Current Active Medications: Generic Name Dose Route Start Last Admin Trade Name Freq PRN Reason Stop Dose Admin Acetaminophen 650 mg 03/28/25 18:17 Acetaminophen 325 Mg Tablet PO 04/27/25 18:16 Q6H PRN Fever >101.5 Atorvastatin Calcium 40 mg 03/29/25 21:00 03/29/25 21:24 Atorvastatin Calcium 20 Mg Tablet PO 04/28/25 20:59 Not Given HS DEWAYNE Dextrose 25 ml 03/28/25 21:09 Dextrose 50%-Water Inj 50 Ml Syringe IV 04/27/25 21:08 Q15MIN PRN BG 50-70 responsive npo pt Dextrose 50 ml 03/28/25 21:09 Dextrose 50%-Water Inj 50 Ml Syringe IV 04/27/25 21:08 Q15MIN PRN BG <50 OR BG <70 & pt unresponsive Doxycycline Hyclate 100 mg 03/28/25 21:00 03/30/25 08:57 Doxycycline 100 Mg Tablet PO 04/04/25 20:59 100 mg BID DEWAYNE Administration Gabapentin 300 mg 03/28/25 22:00 03/30/25 05:47 Gabapentin 300 Mg Capsule PO 04/27/25 21:59 300 mg TID DEWAYNE Administration Glucagon 1 mg 03/28/25 21:09 Glucagon Inj 1 Mg Vial IM Q15MIN PRN BG <70, and no IV access Heparin Sodium (Porcine) 5,000 unit 03/28/25 22:00 03/30/25 05:48 Heparin Sod Inj 5000 Unit/Ml Vial SC 04/11/25 21:59 5,000 unit Q8HR DEWAYNE Administration Hydralazine HCl 10 mg 03/28/25 18:45 Hydralazine Inj 20 Mg/Ml Vial IVP 04/27/25 18:44 Q4H PRN Hypertension Meropenem 1,000 mg/ Sodium 50 mls @ 100 mls/hr 03/28/25 22:00 03/30/25 06:17 Chloride IV 04/04/25 21:59 Infused Q8HR DEWAYNE Infusion Insulin Human Lispro 0 unit 03/29/25 17:00 03/30/25 11:44 Insulin Lispro (Admelog) 1 Unit/0.01 Ml Unit SC 04/28/25 16:59 Not Given AC DEWAYNE Protocol Losartan Potassium 25 mg 03/30/25 09:00 03/30/25 09:00 Losartan Potassium 25 Mg Tablet PO 04/29/25 08:59 Not Given QDAY DEWAYNE Metoclopramide HCl 10 mg 03/29/25 08:04 Metoclopramide 5 Mg Tablet PO 04/28/25 08:03 Q6H PRN NAUSEA OR VOMITING Protocol Naloxegol 12.5 mg 03/29/25 15:30 03/30/25 05:48 Naloxegol Oxalate 25 Mg Tablet (Non-Formulary) PO 04/28/25 15:29 12.5 mg ACBR DEWAYNE Administration Oxycodone/Acetaminophen 1 tab 03/28/25 23:19 03/30/25 08:57 Oxycodone/Apap 5/325 Tablet PO 04/02/25 23:18 1 tab Q6HR PRN Administration pain Pantoprazole Sodium 40 mg 03/29/25 09:00 03/30/25 08:57 Pantoprazole 40 Mg Tablet PO 04/28/25 08:59 40 mg QDAY DEWAYNE Administration Sodium Hypochlorite 473 ml 03/29/25 21:00 03/30/25 05:59 Sod Hypochlorite 1/4 Str 473 Ml Btl IRRIG 04/28/25 20:59 1 applicatio HS [facility] Administration Plan 64-year-old female patient with significant medical history for endometrial carcinoma SP hysterectomy and bilateral salpingo oophorectomy ([facility] 2016), SP radiation and chemotherapy (until 2021), SP ileostomy (rectovaginal fistula in 2022), HLD, PAD SP right AKA (2021) and chronic indwelling Michel catheter (since 2022) bedbound from SNF for radiating epigastric abdominal pain for the last 3 weeks. Patient aditted for ESBL UTI and osteomyelitis. Appreciate recommendations from ID and GI teams. Catheter associated UTI ESBL UTI (on previous culture) Indwelling Michel catheter Hx of endometrial CA s/p hysterectomy Postprandial abdominal pain On admission patient complaining of dysuria Urinalysis indicative of UTI CT redemonstrated soft tissue infection of the posterior lower back destroying coccygeal segment, normal appendix, no bowel obstruction, no renal calculi, no hydronephrosis. Urine culture earlier this year grew ESBL. Urinary catheter exchanged. Complaining of chronic, postprandial abdominal pain that failed multiple medical intervention including PPIs, debility medications and bowel regiment. Reports she had an EGD several years ago which was negative. No concern for mesenteric ischemia, however will consider CTA if systems persist or worsen. We have involved GI team on board, and ordered H. pylori test. ? Continue MEROPENEM (03/28 to present) ? Pending H. pylori ? Pending blood and urine cultures ? Pending ID recommendations ? 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 S/p IV ERTAPENEM and VANCOMYCIN through PICC line on 02/09/2025. CT redemonstrated soft tissue infection of the posterior lower back ESR 57 > 58, CRP 4.9 > 3.6. MRSA screen positive, awaiting ID recs. ID recommended 6 weeks of ROCEPHIN 2 mg daily and DOXYCYCLINE 100 BID. Will continue with DOXYCYCLNE and MEROPENIM for UTI (likely ESBL based on prev cx) until new urine cx return. ? Continue DOXYCYCLINE (03/28 to present) ? HYDROMORPHONE IV for pain ? Pending blood culture ? Wound care ? Pending ID recs ? Pending repeat ESR/CRP T2 IDDM A1c 6.9 this visit. ? INSULIN sliding scale ? Accu-Cheks ? Pending repeat A1c HLD ? Continue home ATORVASTATIN 40 mg daily Normocytic anemia ? Holding iron supplement in setting of active infection ? Daily CBC ? Transfuse if Hgb less than 7 Health maintenance Diet: Carb consistent GI prophylaxis: PROTONIX DVT prophylaxis: HEPARIN subcu Antibiotics: MEROPENEM CODE STATUS: Limited code Disposition: Pending ID recommendations Case was discussed with attending physician and senior resident. Thomas Pacheco DO PGYI Attending Provider Attestation/Addendum I, Mariluz Ang DO, attest that I was physically present for the sanabria portions of the service and evaluated the patient with the resident and I reviewed and discussed the case with the resident and agree with the resident's findings and plans of care as documented above Patient seen and evaluated this a.m. She continues to have the abdominal pain that radiates into her sternum. Patient also complains of bloating. ID recommends IV antibiotics empirically for osteomyelitis. However, patient ultimately would need to relieve the pressure on her coccyx to avoid further destruction. However, patient states that she is unable to move due to the generalized pain in her body. Will place PICC line for IV abx. Will consult GI due to persistent abdominal pain as patient states she has poor PO intake due to pain.
--- NOTE | 2025-03-30 14:26 | PD.IDPROG ---
Subjective Subjective Interval history: rx is base on old urine, repeat cx pending. ua not as impressive and prior surgery noted. ct abd neg for stone or obstruction Exam Vital Signs Temp Pulse Resp BP Pulse Ox O2 Del Method 98.0 F 85 18 142/59 H 100 Room Air 03/30/25 12:00 03/30/25 12:00 03/30/25 12:00 03/30/25 12:00 03/30/25 12:00 03/30/25 12:00 Narrative Exam limited du noted. sacrally, pt not a great historian. Objective - Internal Medicine Labs 03/30/25 05:36 03/30/25 05:36 Labs: Laboratory Results - last 24 hr 03/30/25 05:36 WBC 8.6 RBC 3.06 L Hgb 8.8 L Hct 26.6 L MCV 87 MCH 28.8 MCHC 33.1 RDW Std Deviation 42.3 Plt Count 302 Neut % (Auto) 58 Lymph % (Auto) 27 [place] % (Auto) 7 Eos % (Auto) 8 Baso % (Auto) 1 Neut # (Auto) 4.9 Lymph # (Auto) 2.3 [place] # (Auto) 0.6 Eos # (Auto) 0.7 H Baso # (Auto) 0.0 Immature Gran # (Auto) 0.03 H Absolute Nucleated RBC 0.00 Immature Gran % 0 Nucleated RBC % 0 ESR 58 H Sodium 138 Potassium 4.1 Chloride 100 Carbon Dioxide 27.5 Anion Gap 11 BUN 8 L Creatinine 0.7 Estim Creat Clear Calc 76.7 eGFR > 60 BUN/Creatinine Ratio 11 L Glucose [address] Glu mg/dL 151 H Hemoglobin A1c 6.9 H Calculated Osmolality 274 L Calcium 8.5 Corrected Calcium 9.1 Phosphorus 2.8 Magnesium 1.3 L Total Bilirubin < 0.2 L ALT 11 Alkaline Phosphatase 82 C-Reactive Prot, Quant 3.6 H Total Protein 6.5 Albumin 3.3 L Globulin 3.2 Albumin/Globulin Ratio 1.0 L Assessment & Plan A&P Narrative improved urine here for abd pain. imaging neg dm II possible deep infection of pelvis. not mentioned as such on ct. more ad destruction of the coccyx but that may be due to her malignancies as well. ok to treat for osteo empirically with rocephin 2 gm daily and po doxy 100 bid for 6 weeks but du will only improve with pressure avoidance. she has a hx of ca and prior rt aka if iv rx provided, she will need a picc line and home iv rx. if that is given, please get weekly cbc, renal panel, esr and remove line at end of rx. biopsy of affected area may be needed for dx verificatoin if anyone would do it. I am mnot optimistinc that the du will resolve with rx as she seems to like sitting on her backside. Time Spent With Patient Time: Total time spent is greater than 50% in coordination of care (as documented) at patient's floor/unit and/or counseling patient:
--- NOTE | 2025-03-30 15:16 | PC.NURSE ---
pt. refused wound care with wound nurse, pt. stated she does wound care once a day at SNF, educated pt. on importance of wound care pt. continued to refuse
--- NOTE | 2025-03-30 16:03 | ESCONSULT_ITS ---
<Statement entered by Cayden Viera MD - 04/01/25 09:19> pt seen with resident. all findings confirmed. HPI Data of Consult Requesting Physician: Mariluz Ang DO Admitting Provider: Mariluz Ang DO Attending Provider: Mariluz Ang DO Primary Care Provider: Emiliano Rosas MD Consult Narrative History of present illness: 64-year-old female patient with significant medical history for endometrial carcinoma SP hysterectomy and bilateral salpingo oophorectomy ([facility] 2016), SP radiation and chemotherapy (until 2021), SP ileostomy (rectovaginal fistula in 2022), HLD, PAD SP right AKA (2021) and chronic indwelling Michel catheter (since 2022) bedbound from SNF for radiating epigastric abdominal pain for the last 3 weeks. Imaging shows no acute abdominal issues that may contributed to abdominal pain, patient pending urine culture but has history of positive ESBL E. coli for which ID was consulted along with osteomyelitis of the coccyx. Patient with chronic Michel likely colonized at this point with current infection, patient requires Michel due to history of radiation. Patient noted to have decubitus ulcer. cc:: cc: Mariluz Ang DO Exam Vital Signs Temp Pulse Resp BP Pulse Ox O2 Del Method 98.0 F 85 18 142/59 H 100 Room Air 03/30/25 12:00 03/30/25 12:00 03/30/25 12:00 03/30/25 12:00 03/30/25 12:00 03/30/25 12:00 Narrative Exam Constitutional: AO x 3, follows command, in no acute distress, resting comfortably in bed. Heart: Regular rate and rhythm, no murmurs, rubs, or gallops. Lungs: Chest clear to auscultation bilaterally, no rales or rhonchi. Abdomen: Obese, soft, tender to palpation epigastric and left quadrant, functional ileostomy noted, bowel sounds present Extremities: Right AKA, left foot with bandage. Skin: Sacral ulcer noted, stage III/IV on my observation. Results Labs 03/30/25 05:36 03/30/25 05:36 Labs: Short CBC 03/30/25 Range/Units 05:36 WBC 8.6 (3.6-11.0) Thou/mm3 Hgb 8.8 L (12.0-16.0) g/dL Hct 26.6 L (36.0-46.0) % Plt Count 302 (140-440) Thou/mm3 [facility] 03/30/25 05:36 Sodium 138 Potassium 4.1 Chloride 100 Carbon Dioxide 27.5 BUN 8 L Creatinine 0.7 Glucose 122 H Calcium 8.5 Liver Function 03/30/25 Range/Units 05:36 Total Bilirubin < 0.2 L (0.3-1.2) mg/dL ALT 11 (10-49) U/L Alkaline Phosphatase 82 (46-116) U/L Albumin 3.3 L (3.4-4.8) gm/dL Quality Measures Quality Measures none Advance care planning discussed with:: patient Medications Home Medications and Allergies Home Medications ?Medication ?Instructions ?Recorded ?Confirmed ?Type atorvastatin 40 mg tablet 40 mg PO HS 04/03/22 5 History insulin lispro 100 unit/mL 5 unit subcut TIDACHS 04/0303/29/25 History subcutaneous pen acetaminophen 325 mg tablet 650 mg PO Q6H PRN pain 07/1403/29/25 History (Aminofen) ascorbic acid (vitamin C) 250 mg 250 mg PO QDAY 03/28/25 History tablet (Vitamin C) gabapentin 300 mg capsule 300 mg PO TID 12/26/2403/28 History megestrol 400 mg/10 mL (40 mg/mL) 400 mg PO QDAY 12/2603/29/25 History oral suspension methocarbamol 500 mg tablet 500 mg PO BID 12/26/2407/14 History multivitamin with minerals-ferrous 1 tab PO QDAY 12/2603/29/25 History sulfate 15 mg iron tablet vancomycin 1,000 mg intravenous 1,000 g IV DAILY 02/0103/29/25 History injection Diphenhydramine HCL 25 mg PO Q8HR PRN itching 03/28/25 History Milk of Magnesia 30 ml PO .every 72 PRN const ipation 03/28/25 03/28/25 History ergocalciferol (vitamin D2) 1,250 1,250 mcg PO QWEEK 0 03/28/25 03/28/25 History mcg (50,000 unit) capsule ferrous sulfate 325 mg (65 mg 325 mg PO BID 03/28/25 0 03/28/25 History iron) tablet (FeroSul) insulin glargine 100 unit/mL (3 20 unit subcut BID 07/1403/28/25 History mL) subcutaneous pen (Lantus Solostar U-100 Insulin) oxycodone-acetaminophen 5 mg-325 1 tab PO [id number] PRN pain 03/28/25 03/28/25 History mg tablet (Percocet) pantoprazole 20 mg tablet,delayed 20 mg PO QDAY 03/28/25 History release simethicone 80 mg chewable tablet 80 mg PO [id number] PRN Gas 03/28/25 03/28/25 History vitamin B complex-vitamin C-folic 1 tab PO QDAY 03/28/25 History acid 0.8 mg tablet (Nephro-Jerri) insulin lispro 100 unit/mL 1 sliding scale dose subcut 03/29/25 03/29/25 History subcutaneous solution (Humalog USEASDIRECTD U-100 Insulin) Allergies Allergy/AdvReac Type Severity Reaction Status Date / Time fentanyl AdvReac Mild Numbness Verified 02/08/25 14:39 latex AdvReac Mild RASH Verified 02/08/25 14:39 morphine AdvReac Unknown Verified 02/08/25 14:39 Visit Medications Acetaminophen (Acetaminophen 325 Mg Tablet) 650 mg PO Q6H PRN PRN Reason: Fever >101.5 Stop: 04/27/25 18:16 Atorvastatin Calcium (Atorvastatin Calcium 20 Mg Tablet) 40 mg PO HS DEWAYNE Stop: 04/28/25 20:59 Last Admin: 03/29/25 21:24 Dose: Not Given Dextrose (Dextrose 50%-Water Inj 50 Ml Syringe) 25 ml IV Q15MIN PRN PRN Reason: BG 50-70 responsive npo pt Stop: 04/27/25 21:08 Dextrose (Dextrose 50%-Water Inj 50 Ml Syringe) 50 ml IV Q15MIN PRN PRN Reason: BG <50 OR BG <70 & pt unresponsive Stop: 04/27/25 21:08 Doxycycline Hyclate (Doxycycline 100 Mg Tablet) 100 mg PO BID DEWAYNE Stop: 04/04/25 20:59 Last Admin: 03/30/25 08:57 Dose: 100 mg Gabapentin (Gabapentin 300 Mg Capsule) 300 mg PO TID COUNTS INCLUDE 234 BEDS AT THE [facility] Stop: 04/27/25 21:59 Last Admin: 03/30/25 14:13 Dose: 300 mg Glucagon (Glucagon Inj 1 Mg Vial) 1 mg IM Q15MIN PRN PRN Reason: BG <70, and no IV access Heparin Sodium (Porcine) (Heparin Sod Inj 5000 Unit/Ml Vial) 5,000 unit SC Q8HR COUNTS INCLUDE 234 BEDS AT THE [facility] Stop: 04/11/25 21:59 Last Admin: 03/30/25 14:13 Dose: Not Given Hydralazine HCl (Hydralazine Inj 20 Mg/Ml Vial) 10 mg IVP Q4H PRN PRN Reason: Hypertension Stop: 04/27/25 18:44 Meropenem 1,000 mg/ Sodium (Chloride) 50 mls @ 100 mls/hr IV Q8HR COUNTS INCLUDE 234 BEDS AT THE [facility] Stop: 04/04/25 21:59 Last Admin: 03/30/25 14:13 Dose: 100 mls/hr Insulin Human Lispro (Insulin Lispro (Admelog) 1 Unit/0.01 Ml Unit) 0 unit SC [facility]; Protocol Stop: 04/28/25 16:59 Last Admin: 03/30/25 11:44 Dose: Not Given Losartan Potassium (Losartan Potassium 25 Mg Tablet) 25 mg PO QDAY COUNTS INCLUDE 234 BEDS AT THE [facility] Stop: 04/29/25 08:59 Last Admin: 03/30/25 09:00 Dose: Not Given Metoclopramide HCl (Metoclopramide 5 Mg Tablet) 10 mg PO Q6H PRN; Protocol PRN Reason: NAUSEA OR VOMITING Stop: 04/28/25 08:03 Naloxegol (Naloxegol Oxalate 25 Mg Tablet (Non-Formulary)) [facility] Stop: 04/28/25 15:29 Last Admin: 03/30/25 05:48 Dose: 12.5 mg Oxycodone/Acetaminophen (Oxycodone/Apap 5/325 Tablet) 1 tab PO Q6HR PRN PRN Reason: pain Stop: 04/02/25 23:18 Last Admin: 03/30/25 08:57 Dose: 1 tab Pantoprazole Sodium (Pantoprazole 40 Mg Tablet) 40 mg PO QDAY COUNTS INCLUDE 234 BEDS AT THE [facility] Stop: 04/28/25 08:59 Last Admin: 03/30/25 08:57 Dose: 40 mg Sodium Hypochlorite (Sod Hypochlorite 1/4 Str 473 Ml Btl) 473 ml IRRIG HS DEWAYNE Stop: 04/28/25 20:59 Last Admin: 03/30/25 05:59 Dose: 1 applicatio Discontinued Medications Fentanyl Citrate (Fentanyl Cit Inj 50 Mcg/Ml Amp 2ml) 50 mcg IVP X1 ONE Stop: 03/28/25 09:43 Last Admin: 03/28/25 10:23 Dose: Not Given Hydromorphone HCl (Hydromorphone Inj 2 Mg/Ml Vial) 1 mg IVP Q4HR PRN PRN Reason: severe pain 7-10 Stop: 04/02/25 18:33 Sodium Chloride (Ns) 1,000 mls @ 250 mls/hr IV .Q4H ONE Stop: 03/28/25 13:39 Last Infusion: 03/28/25 16:35 Dose: Infused Ceftriaxone Sodium 2 gm/ (Sodium Chloride) 50 mls @ 100 mls/hr IV X1 ONE Stop: 03/28/25 14:46 Last Admin: 03/28/25 14:43 Dose: Not Given Ceftriaxone Sodium/Dextrose (Rocephin/D5w 2gm) 2 gm in 50 mls @ 100 mls/hr IV X1 ONE Stop: 03/28/25 15:14 Last Infusion: 03/28/25 16:33 Dose: Infused Piperacillin/Tazobactam/Dextrose (Zosyn) 3.375 gm in 50 mls @ 100 mls/hr IV X1 ONE Stop: 03/28/25 17:30 Last Infusion: 03/28/25 18:31 Dose: Infused Vancomycin/Sodium Chloride (Vancomycin/Ns 1 Gm Ivpb) 200 mls @ 120 mls/hr IV X1 ONE Stop: 03/28/25 18:40 Last Admin: 03/28/25 17:41 Dose: 120 mls/hr Magnesium Sulfate (Magnesium Sulfate Ivpb) 4 gm in 50 mls @ 12.5 mls/hr IV X1 ONE Stop: 03/30/25 11:50 Last Admin: 03/30/25 08:57 Dose: 12.5 mls/hr Insulin Human Lispro (Insulin Lispro (Admelog) 1 Unit/0.01 Ml Unit) 0 unit SC AC COUNTS INCLUDE 234 BEDS AT THE [facility]; Protocol Stop: 04/28/25 07:29 Last Admin: 03/29/25 11:54 Dose: Not Given Insulin Human Lispro (Insulin Lispro (Admelog) 1 Unit/0.01 Ml Unit) 0 unit SC Q6HR DEWAYNE; Protocol Stop: 04/28/25 17:59 Metoclopramide HCl (Metoclopramide Inj 5 Mg/Ml Vial 2 Ml) 10 mg IVP Q6H PRN; Protocol PRN Reason: NAUSEA OR VOMITING Stop: 04/27/25 18:21 Ondansetron HCl (Ondansetron Inj 2 Mg/Ml Inj 2 Ml) 4 mg IVP X1 ONE; Protocol Stop: 03/28/25 09:41 Last Admin: 03/28/25 10:20 Dose: 4 mg Oxycodone/Acetaminophen (Oxycodone/Apap 5/325 Tab (Asd)) 1 tab PO Q6HR PRN PRN Reason: pain Stop: 04/02/25 21:56 Pantoprazole Sodium (Pantoprazole Inj 40 Mg Vial) 40 mg IVP X1 ONE Stop: 03/28/25 09:41 Last Admin: 03/28/25 10:19 Dose: 40 mg Simethicone (Simethicone 80 Mg Chew) 80 mg PO X1 ONE Stop: 03/30/25 10:12 Last Admin: 03/30/25 11:43 Dose: 80 mg Assessment & Plan Plan 64-year-old female patient with significant medical history for endometrial carcinoma SP hysterectomy and bilateral salpingo oophorectomy ([facility] 2016), SP radiation and chemotherapy (until 2021), SP ileostomy (rectovaginal fistula in 2022), HLD, PAD SP right AKA (2021) and chronic indwelling Michel catheter (since 2022) bedbound from SNF for radiating epigastric abdominal pain for the last 3 weeks. ID consulted for management of coccyx osteomyelitis and history of ESBL E. coli infection currently pending culture. #Osteomyelitis #History of ESBL E. coli Patient noted to have's mellitus on imaging. Has been treated before with IV antibiotics. Decubitus ulcer noted. Likely source of osteomyelitis. Patient currently on meropenem for history of ESBL E. coli, currently pending new cultures. Patient does have chronic indwelling catheter likely colonized at this point. Patient will require IV antibiotics for 6 weeks with 2 g of Rocephin daily and 100 mg twice daily of Doxy for 6 weeks total with weekly CBCs, renal panels, and ESR. Patient will need wound clinic as well to manage his decubitus ulcer which will likely not improve without proper weight shifting/wound care/good glycemic control. Hx of endometrial CA s/p hysterectomy Postprandial abdominal pain Stage IV sacral ulcer Severe PAD S/p right AKA and left third digit amputation T2 IDDM HLD Normocytic anemia Continue management per primary team Case discussed with attending Dr Aylin Boyle MD PGY3
--- NOTE | 2025-03-30 18:49 | ESCONSULT_ITS ---
RE: MONTY MOORE : 1960 DATE OF CONSULTATION: 03/30/2025 REFERRING PHYSICIAN: Dr. Ang, hospitalist. REASON FOR CONSULTATION: Urinary tract infection in a chronically catheterized patient with admission for abdominal pain noted. HISTORY OF PRESENT ILLNESS: The patient is status post hysterectomy and ostomy. I had her mixed up with a different patient. She is 64 years of age, and treating her for osteomyelitis of the leg is reasonable. She has had a problem with that leg for years. She has previously received IV antibiotics and has a UTI. Prior hysterectomy is noted. If she wanted to be treated with antibiotics, she can go ahead. At surgery , cultures should be done and treatment can be based on cultures. If the cultures are negative, then if the device is removed and we can decide to treat with something else based on the cultures or at least a Gram stain. I will check on her Friday. If no surgery is done, another course of treatment can be offered, but that would be at your discretion. Repeating treatment without getting an appropriate diagnosis is not ideal. Ideally, we have the foreign material removed from the leg and that leads to treatment. DT: 16:20:09 TT: 18:37:00 Ref: [id number] - TID: [id number] [facility]
--- NOTE | 2025-03-30 19:44 | PD.IMCONS ---
HPI Data of Consult Requesting Physician: Mariluz Ang DO Primary Care Provider: Emiliano Rosas MD Consult Narrative Reason for consult: Pain abdomen, anemia H/H of 7.7/23.8 History of present illness: 64 years of female consulted by the internal medicine team for pain abdomen both upper and lower and the low hemoglobin hematocrit 7.7 and 23[address] scan of the abdomen pelvis done which shows soft tissue destruction of the coccygeal area Patient has a distant past medical history of ovarian carcinoma status post bilateral salpingo-oophorectomy and hysterectomy and she developed colovaginal fistulas during chemotherapy and had to have a sigmoid resection along with a diverting colostomy She does have a history of diabetes mellitus type 2 hyperlipidemia as well She also had history of nausea and vomiting and discomfort both upper and lower abdominal She has also been having a lot of gas and bloating in the colostomy bag has been filling up with flatulence cc:: cc: Mariluz Ang DO Review of Systems Review of Systems Systems Reviewed: All systems reviewed, normal except as documented Past Medical History Surgical History OTHER SURGICAL HX: Asthma history of present illness Meds Home Medications and Allergies Home Medications ?Medication ?Instructions ?Recorded ?Confirmed ?Type atorvastatin 40 mg tablet 40 mg PO HS 04/03/22 03/28/25 History insulin lispro 100 unit/mL 5 unit subcut TIDACHS 04/03/22 03/29/25 History subcutaneous pen acetaminophen 325 mg tablet 650 mg PO Q6H PRN pain 12/26/24 03/29/25 History (Aminofen) ascorbic acid (vitamin C) 250 mg 250 mg PO QDAY 12/26/24 03/28/25 History tablet (Vitamin C) gabapentin 300 mg capsule 300 mg PO TID 12/26/24 03/28/25 History megestrol 400 mg/10 mL (40 mg/mL) 400 mg PO QDAY 12/26/24 03/29/25 History oral suspension methocarbamol 500 mg tablet 500 mg PO BID 12/26/24 03/28/25 History multivitamin with minerals-ferrous 1 tab PO QDAY 12/26/24 03/29/25 History sulfate 15 mg iron tablet vancomycin 1,000 mg intravenous 1,000 g IV DAILY 02/01/25 03/29/25 History injection Diphenhydramine HCL 25 mg PO Q8HR PRN itching 03/28/25 03/28/25 History Milk of Magnesia 30 ml PO .every 72 PRN constipation 03/28/25 03/28/25 History ergocalciferol (vitamin D2) 1,250 1,250 mcg PO QWEEK 03/28/25 03/28/25 History mcg (50,000 unit) capsule ferrous sulfate 325 mg (65 mg 325 mg PO BID 03/28/25 03/28/25 History iron) tablet (FeroSul) insulin glargine 100 unit/mL (3 20 unit subcut BID 03/28/25 03/28/25 History mL) subcutaneous pen (Lantus Solostar U-100 Insulin) oxycodone-acetaminophen 5 mg-325 1 tab PO [id number] PRN pain 03/28/25 03/28/25 History mg tablet (Percocet) pantoprazole 20 mg tablet,delayed 20 mg PO QDAY 03/28/25 03/28/25 History release simethicone 80 mg chewable tablet 80 mg PO [id number] PRN Gas 03/28/25 03/28/25 History vitamin B complex-vitamin C-folic 1 tab PO QDAY 03/28/25 03/28/25 History acid 0.8 mg tablet (Nephro-Jerri) insulin lispro 100 unit/mL 1 sliding scale dose subcut 03/29/25 03/29/25 History subcutaneous solution (Humalog USEASDIRECTD U-100 Insulin) Allergies Allergy/AdvReac Type Severity Reaction Status Date / Time fentanyl AdvReac Mild Numbness Verified 02/08/25 14:39 latex AdvReac Mild RASH Verified 02/08/25 14:39 morphine AdvReac Unknown Verified 02/08/25 14:39 Exam Vital Signs Temp Pulse Resp BP Pulse Ox O2 Del Method 97.6 F 68 18 138/66 H 98 Room Air 03/30/25 16:00 03/30/25 16:20 03/30/25 16:20 03/30/25 16:00 03/30/25 16:00 03/30/25 16:00 Constitutional Comments: Alert oriented Routine Respiratory Exam Comments: Normal to auscultation Routine Abdominal Exam Comments: Soft nontender colostomy in place and functioning Results Labs 03/31/25 04:47 03/31/25 04:47 Labs: Short CBC 03/30/25 Range/Units 05:36 WBC 8.6 (3.6-11.0) Thou/mm3 Hgb 8.8 L (12.0-16.0) g/dL Hct 26.6 L (36.0-46.0) % Plt Count 302 (140-440) Thou/mm3 BMP 03/30/25 05:36 Sodium 138 Potassium 4.1 Chloride 100 Carbon Dioxide 27.5 BUN 8 L Creatinine 0.7 Glucose 122 H Calcium 8.5 Liver Function 03/30/25 Range/Units 05:36 Total Bilirubin < 0.2 L (0.3-1.2) mg/dL ALT 11 (10-49) U/L Alkaline Phosphatase 82 (46-116) U/L Albumin 3.3 L (3.4-4.8) gm/dL Assessment and Plan Additional Assessment & Plan Additional Plan: # Pain abdomen both upper and lower and generalized with increased abdominal bloating and increased flatulence and his low hemoglobin hematocrit in a patient with previous history of ovarian carcinoma status post cystectomy bilateral salpingo-oophorectomy and diverting colostomy for colovaginal fistulas with colonic resection which is limited suggestions Clear liquid diet till 11:00 Consent obtained for fiberoptic esophagogastroduodenoscopy with possible biopsy possible therapeutic intervention under intravenous moderate sedation If the EGD is negative we will consider doing a fiberoptic colonoscopy prior to discharge thank you very much for the opportunity to participate in care of this patient Other medical problems include IDDM Hyperlipidemia History of ovarian carcinoma status post cystectomy bilateral single oophorectomy followed by chemotherapy Consider destruction on CT scan imaging of the abdomen pelvis most likely osteomyelitis
--- NOTE | 2025-03-30 19:45 | PC.NURSE ---
Dr. Lopez in to assess pt discuss plan of care, plan for EGD tomorrow, clears in AM NPO after 1100, pt verbalized understanding.
[2025-03-31] VITALS (17 sets, daily range): BP systolic 107–189; BP diastolic 53–94; PULSE 68–109; RESP 14–99; TEMP 36.2–36.7; O2SAT 97–100
--- NOTE | 2025-03-31 | XR_ITS ---
Examination: Attempted PICC line placement Date and time: March 31, 2020 5:12 PM INDICATIONS: Need for central line for long-term intravenous antibiotic therapy FINDINGS: All of the patient's arm veins are extremely small, unsuccessful ultrasound-guided needle access IMPRESSION: Unsuccessful ultrasound-guided needle access of very small veins in the arm
[2025-03-31] MEDS: GABAPENTIN 300 MG CAPSULE PO ×2 (06:06→21:00)
[2025-03-31] MEDS: MEROPENEM INJ 1,000 MG in SODIUM CHLORIDE 0.9% (Popper) 50 ML 100 MG IV ×2 (06:06→14:53)
[2025-03-31 06:12] LABS: Basophils % (Auto) 1 % (0-2.5); Eosinophils # (Auto) 0.7 Thou/mm3 (0.0-0.5); Eosinophils % (Auto) 9 % (0-10); Hematocrit 24.5 % (36.0-46.0); Immature Granulocytes % (Auto) 0 % (0-0); Immature Granulocytes Auto 0.02 Thou/mm3 (0.00-0.00); Lymphocytes # (Auto) 2.9 Thou/mm3 (1.0-4.8); Lymphocytes % (Auto) 40 % (10-50); Mean Corpuscular HGB Conc 34.3 g/dl (31.0-37.0); Mean Corpuscular Hemoglobin 28.8 pg (25.0-35.0); Mean Corpuscular Volume 84 fL (80-100); Monocytes # (Auto) 0.6 Thou/mm3 (0.0-0.8); Monocytes % (Auto) 8 % (0-12); Neutrophils % (Auto) 42 % (37-80); Nucleated Red Blood Cell % 0 /100 WBC (0); Platelet Count 327 Thou/mm3 (140-440); RDW Standard Deviation 40.4 fL (36.4-46.3); Red Blood Count 2.92 Miln/mm3 (4.00-5.20); White Blood Count 7.1 Thou/mm3 (3.6-11.0)
[2025-03-31 06:13] LABS: Hemoglobin 8.4 g/dL (12.0-16.0)
[2025-03-31 06:38] LABS: Alanine Aminotransferase 10 U/L (10-49); Albumin, Serum 3.3 gm/dL (3.4-4.8); Albumin/Globulin Ratio 1.1 (1.2-2.2); Alkaline Phosphatase 81 U/L (46-116); Anion Gap 10 (7-16); BUN/Creatinine Ratio 11 Ratio (12-20); Bilirubin,Total < 0.2 mg/dL (0.3-1.2); Blood Urea Nitrogen 8 mg/dL (9-23); Calcium 8.4 mg/dL (8.3-10.6); Carbon Dioxide 28.3 mMol/L (20.0-31.0); Chloride 99 mMol/L (98-107); Creatinine (Component) 0.7 mg/dL (0.6-1.3); Estimated Creatinine Clearance 76.7 mL/min (>60); Globulin 3.1 gm/dL (2.3-3.5); Glucose 141 mg/dL (74-106); Magnesium 2.1 mg/dL (1.6-2.6); Osmolality,Calculated 274 (275-295); Phosphorous 2.3 mg/dL (2.4-5.1); Sodium 137 mMol/L (136-145); Total Protein 6.4 gm/dL (5.7-8.2); eGFR > 60 See Note
[2025-03-31] MEDS: SOD HYPOCHLORITE 1/4 STR 473 ML BTL IRRIG (06:46)
[2025-03-31] MEDS: LOSARTAN POTASSIUM 25 MG TABLET PO (09:05)
[2025-03-31] MEDS: DOXYCYCLINE 100 MG TABLET PO ×2 (09:05→20:58)
[2025-03-31] MEDS: PANTOPRAZOLE 40 MG TABLET PO (09:05)
[2025-03-31] MEDS: oxyCODONE/APAP 5/325 TABLET 1 TAB PO ×2 (09:05→16:04)
[2025-03-31] MEDS: SOD PHOS ADDITIVE 22.5 MMOL in SODIUM CHLORIDE 0.9% 500 ML 500 ML 82.778 MMOL IV (09:06)
--- NOTE | 2025-03-31 09:19 | PC.NURSE ---
Pt GCS 15 NAD noted was taken to IR for PICC line insertion at this time
--- NOTE | 2025-03-31 10:02 | ESPR_ITS ---
<Statement entered by Brown Aguillon MD - 04/01/25 16:23> I discussed with and supervised the communications marketing intern physician involved in the care of this patient. Patient assessment and plan was discussed with entire medicine team, including my attending. I agree with the assessment and plan as documented by communications marketing intern doctor. Patient care was discussed with my attending physician Dr. Sav Aguillon, PGY-2 Documentation for date of: 03/31/25 Subjective Subjective Interval history: No overnight events. Denies new or worsening symptoms. Afebrile, no leukocytosis. Remains hypertensive but previously refused antihypertensive meds, although received LOSARTAN today. CBC and CMP at baseline, phosphorus repleted. No new cultures. Seen by GI, will undergo EGD later this afternoon. Several attempts for PICC line and Tunnel cath by IR have been unsuccessful 2/2 small veins. Exam Vital Signs Temp Pulse Resp BP Pulse Ox O2 Del Method 98.1 F 82 19 178/72 H 99 Room Air 03/31/25 09:28 03/31/25 09:28 03/31/25 09:28 03/31/25 09:28 03/31/25 09:28 03/31/25 09:28 Narrative Exam Constitutional: AO x 3, follows command, in mild distress HEENT: NCAT, patent nares, moist mucous membranes Heart: Normal S1 and S2, no murmurs, no JVD Lungs: CTAB, no wheezing, no rhonchi Abdomen: Obese, soft, tender to palpation epigastric and left quadrant, functional ileostomy noted, bowel sounds present Genitourinary: No flank pain, no bladder tenderness on palpation Extremities: Right AKA, left third digit amputation Skin: Approximately 4.5 cm sacral ulcer, stage IV, bone visible Psychiatric: Appropriate affect, AO x 3, cooperative Objective Labs 03/31/25 04:47 03/31/25 04:47 Labs: Laboratory Results - last 24 hr 03/31/25 04:47 WBC 7.1 RBC 2.92 L Hgb 8.4 L Hct 24.5 L MCV 84 MCH 28.8 MCHC 34.3 RDW Std Deviation 40.4 Plt Count 327 Neut % (Auto) 42 Lymph % (Auto) 40 [place] % (Auto) 8 Eos % (Auto) 9 Baso % (Auto) 1 Neut # (Auto) 3.0 Lymph # (Auto) 2.9 [place] # (Auto) 0.6 Eos # (Auto) 0.7 H Baso # (Auto) 0.0 Immature Gran # (Auto) 0.02 H Absolute Nucleated RBC 0.00 Immature Gran % 0 Nucleated RBC % 0 Sodium 137 Potassium 4.0 Chloride 99 Carbon Dioxide 28.3 Anion Gap 10 BUN 8 L Creatinine 0.7 Estim Creat Clear Calc 76.7 eGFR > 60 BUN/Creatinine Ratio 11 L Glucose 141 H Calculated Osmolality 274 L Calcium 8.4 Corrected Calcium 9.0 Phosphorus 2.3 L Magnesium 2.1 Total Bilirubin < 0.2 L ALT 10 Alkaline Phosphatase 81 Total Protein 6.4 Albumin 3.3 L Globulin 3.1 Albumin/Globulin Ratio 1.1 L Quality Measures Quality Measures none Advance care planning discussed with:: patient Assessment & Plan Assessment Current Active Medications: Generic Name Dose Route Start Last Admin Trade Name Freq PRN Reason Stop Dose Admin Acetaminophen 650 mg 03/28/25 18:17 Acetaminophen 325 Mg Tablet PO 04/27/25 18:16 Q6H PRN Fever >101.5 Atorvastatin Calcium 40 mg 03/29/25 21:00 03/30/25 22:14 Atorvastatin Calcium 20 Mg Tablet PO 04/28/25 20:59 Not Given HS DEWAYNE Dextrose 25 ml 03/28/25 21:09 Dextrose 50%-Water Inj 50 Ml Syringe IV 04/27/25 21:08 Q15MIN PRN BG 50-70 responsive npo pt Dextrose 50 ml 03/28/25 21:09 Dextrose 50%-Water Inj 50 Ml Syringe IV 04/27/25 21:08 Q15MIN PRN BG <50 OR BG <70 & pt unresponsive Doxycycline Hyclate 100 mg 03/28/25 21:00 03/31/25 09:05 Doxycycline 100 Mg Tablet PO 04/04/25 20:59 100 mg BID DEWAYNE Administration Gabapentin 300 mg 03/28/25 22:00 03/31/25 06:06 Gabapentin 300 Mg Capsule PO 04/27/25 21:59 300 mg TID DEWAYNE Administration Glucagon 1 mg 03/28/25 21:09 Glucagon Inj 1 Mg Vial IM Q15MIN PRN BG <70, and no IV access Heparin Sodium (Porcine) 5,000 unit 03/28/25 22:00 03/31/25 06:06 Heparin Sod Inj 5000 Unit/Ml Vial SC 04/11/25 21:59 Not Given Q8HR DEWAYNE Hydralazine HCl 10 mg 03/28/25 18:45 Hydralazine Inj 20 Mg/Ml Vial IVP 04/27/25 18:44 Q4H PRN Hypertension Meropenem 1,000 mg/ Sodium 50 mls @ 100 mls/hr 03/28/25 22:00 03/31/25 06:46 Chloride IV 04/04/25 21:59 Infused Q8HR DEWAYNE Infusion Sodium Phosphate 22.5 mmol/ 507.5 mls @ 82.778 mls/hr 03/31/25 07:44 03/31/25 09:06 Sodium Chloride IV 03/31/25 13:51 82.778 mls/hr X1 ONE Administration Insulin Human Lispro 0 unit 03/29/25 17:00 03/31/25 07:37 Insulin Lispro (Admelog) 1 Unit/0.01 Ml Unit SC 04/28/25 16:59 Not Given AC DEWAYNE Protocol Losartan Potassium 25 mg 03/30/25 09:00 03/31/25 09:05 Losartan Potassium 25 Mg Tablet PO 04/29/25 08:59 25 mg QDAY DEWAYNE Administration Metoclopramide HCl 10 mg 03/29/25 08:04 Metoclopramide 5 Mg Tablet PO 04/28/25 08:03 Q6H PRN NAUSEA OR VOMITING Protocol Naloxegol 12.5 mg 03/29/25 15:30 03/31/25 06:46 Naloxegol Oxalate 25 Mg Tablet (Non-Formulary) PO 04/28/25 15:29 Not Given ACBR DEWAYNE Oxycodone/Acetaminophen 1 tab 03/28/25 23:19 03/31/25 09:05 Oxycodone/Apap 5/325 Tablet PO 04/02/25 23:18 1 tab Q6HR PRN Administration pain Pantoprazole Sodium 40 mg 03/29/25 09:00 03/31/25 09:05 Pantoprazole 40 Mg Tablet PO 04/28/25 08:59 40 mg QDAY DEWAYNE Administration Sodium Hypochlorite 473 ml 03/29/25 21:00 03/31/25 06:46 Sod Hypochlorite 1/4 Str 473 Ml Btl IRRIG 04/28/25 20:59 1 applicatio HS DEWAYNE Administration Plan 64-year-old female patient with significant medical history for endometrial carcinoma SP hysterectomy and bilateral salpingo oophorectomy ([facility] 2016), SP radiation and chemotherapy (until 2021), SP ileostomy (rectovaginal fistula in 2022), HLD, PAD SP right AKA (2021) and chronic indwelling Michel catheter (since 2022) bedbound from SNF for radiating epigastric abdominal pain for the last 3 weeks. Patient aditted for ESBL UTI and osteomyelitis. Appreciate recommendations from ID and GI teams. Catheter associated UTI ESBL UTI (on previous culture) Indwelling Michel catheter Hx of endometrial CA s/p hysterectomy Postprandial abdominal pain On admission patient complaining of dysuria Urinalysis indicative of UTI CT redemonstrated soft tissue infection of the posterior lower back destroying coccygeal segment, normal appendix, no bowel obstruction, no renal calculi, no hydronephrosis. Urine culture earlier this year grew ESBL. Urinary catheter exchanged. Complaining of chronic, postprandial abdominal pain that failed multiple medical intervention including PPIs, debility medications and bowel regiment. Reports she had an EGD several years ago which was negative. No concern for mesenteric ischemia, however will consider CTA if systems persist or worsen. We have involved GI team on board, and ordered H. pylori test. Cultures remain negative. ? Discontinued MEROPENEM (03/28 to 03/31), started CTX as below ? NPO for EGD later today 03/31/25 ? Pending H. pylori ? 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 S/p IV ERTAPENEM and VANCOMYCIN through PICC line on 02/09/2025. CT redemonstrated soft tissue infection of the posterior lower back ESR 57 > 58, CRP 4.9 > 3.6. MRSA screen positive, awaiting ID recs. ID recommended 6 weeks of ROCEPHIN 2 mg daily and DOXYCYCLINE 100 BID. Will continue with DOXYCYCLNE and MEROPENIM for UTI (likely ESBL based on prev cx) until new urine cx return. ? Continue DOXYCYCLINE (03/28 to present) ? Started CEFTRIAXONE 2 mg daily (03/31 to present) ? HYDROMORPHONE IV for pain ? Wound care T2 IDDM A1c 6.9 this visit. ? INSULIN sliding scale ? Accu-Cheks ? Pending repeat A1c HLD ? Continue home ATORVASTATIN 40 mg daily Normocytic anemia ? Holding iron supplement in setting of active infection ? Daily CBC ? Transfuse if Hgb less than 7 Health maintenance Diet: Carb consistent GI prophylaxis: PROTONIX DVT prophylaxis: HEPARIN subcu Antibiotics: MEROPENEM CODE STATUS: Limited code Disposition: Pending ID recommendations Case was discussed with attending physician and senior resident. Thomas Pacheco DO PGYI Attending Provider Attestation/Addendum I, Mariluz Ang DO, attest that I was physically present for the [place] portions of the service and evaluated the patient with the resident and I reviewed and discussed the case with the resident and agree with the resident's findings and plans of care as documented above Patient seen and evaluated this AM. She continues to complain of pain. She is scheduled for EGD this evening. WIll f/u with results. Patient had gone to IR for PICC line placement, but unsuccessful due to small veins. Padilla catheter was also unsuccesful due to small veins. Will inquire about peripheral line at SNF. However, patient is mainly bedbound. Findings of osteo will not improve unless patient offloads pressure despite abx treatment. Will f/u with ID recommendations.
[2025-03-31] MEDS: HEPARIN SOD LOCK SYR 100 UNIT/ML 500 UNIT STFIELD (10:20)
[2025-03-31] MEDS: LIDOCAINE INJ PF 1% 30 ML VIAL INFL (10:25)
--- NOTE | 2025-03-31 12:10 | PC.NURSE ---
Pt was brought back from IR after unsuccessfully attempt to insert PICC line by
--- NOTE | 2025-03-31 19:00 | PC.NURSE ---
Pt taken to endo
--- NOTE | 2025-03-31 19:42 | SUR.PHASEI ---
Pt. arrived to recovery via gurney, eyes closed, responds to verbal commands, VSS, no c/o pain or nausea at this time, pt. has colostomy to left side of abdomen, pt. has reid catheter intact, report received from Noreen LEON.
--- NOTE | 2025-03-31 20:09 | SUR.PHASEI ---
Called and gave report on pt. s/p procedure to Sonya LEON on M/S unit.
--- NOTE | 2025-03-31 20:16 | SUR.PHASEI ---
Pt. transferred to room 377 via CRIS ortiz, no c/o pain or nausea at this time, pt. tolerating ice chips, Sonya LEON assumed care of pt.
--- NOTE | 2025-03-31 20:43 | PC.NURSE ---
Pt back from [facility]
[2025-03-31] MEDS: cefTRIAXone 2 GM in SODIUM CHLORIDE 0.9% (Popper) 50 ML IV (20:54)
[2025-04-01] VITALS (9 sets, daily range): BP systolic 124–151; BP diastolic 46–67; PULSE 64–78; RESP 16–24; TEMP 36.2–36.6; O2SAT 97–100
[2025-04-01] MEDS: oxyCODONE/APAP 5/325 TABLET 1 TAB PO ×2 (02:09→11:43)
--- NOTE | 2025-04-01 07:14 | PC.NURSE ---
Educated pt on fall precautions and safety. Pt refuses to keep bed at lowest position due to claustrophobia. Pt also refuses bed alarm.
[2025-04-01] MEDS: PANTOPRAZOLE 40 MG TABLET PO (08:14)
[2025-04-01] MEDS: INSULIN LISPRO (AdmeLOG) 1 UNIT/0.01 ML UNIT SC ×3 (08:14→16:04)
[2025-04-01] MEDS: DOXYCYCLINE 100 MG TABLET PO ×2 (08:14→20:24)
[2025-04-01] MEDS: cefTRIAXone/D5w 2gm 2 GM/50 ML BAG IV (08:16)
[2025-04-01] MEDS: LOSARTAN POTASSIUM 25 MG TABLET PO (08:16)
--- NOTE | 2025-04-01 09:33 | PD.IDPROG ---
Subjective Subjective Interval history: macrobid for the urine is ok but cx are old that are positive so 3d rx ok. rx for osteo at your discretion Exam Vital Signs Temp Pulse Resp BP Pulse Ox O2 Del Method O2 Flow Rate 97.2 F 73 16 125/67 100 Room Air 3 04/01/25 04:00 04/01/25 08:16 04/01/25 04:00 04/01/25 08:16 04/01/25 04:00 04/01/25 04:00 03/31/25 19:30 Narrative Exam limited visit today Objective - Internal Medicine Labs 03/31/25 04:47 03/31/25 04:47 Assessment & Plan A&P Narrative macrobid ok for 3d for urine and if you feel she has pelvic osteo, then iv rocephin 2 gm/day and po doxy 100bid for 6 weeks ok will see again prn Time Spent With Patient Time: Total time spent is greater than 50% in coordination of care (as documented) at patient's floor/unit and/or counseling patient:
--- NOTE | 2025-04-01 09:45 | PD.IMPROG ---
Documentation for date of: 04/01/25 Subjective Subjective Interval history: Somehow GoLytely yesterday was missed start the GoLytely today for a possible colonoscopy tomorrow Exam Vital Signs Temp Pulse Resp BP Pulse Ox O2 Del Method O2 Flow Rate 97.2 F 73 16 125/67 100 Room Air 3 04/01/25 04:00 04/01/25 08:16 04/01/25 04:00 04/01/25 08:16 04/01/25 04:00 04/01/25 04:00 03/31/25 19:30 Objective Labs 03/31/25 04:47 03/31/25 04:47 Impressions Impression: Anemia of blood loss colonoscopy via stoma tomorrow Once patient is cleared Assessment & Plan A&P Narrative macrobid ok for 3d for urine and if you feel she has pelvic osteo, then iv rocephin 2 gm/day and po doxy 100bid for 6 weeks ok will see again prn Time Spent With Patient Time: Total time spent is greater than 50% in coordination of care (as documented) at patient's floor/unit and/or counseling patient:
--- NOTE | 2025-04-01 11:36 | XR_ITS ---
Examination: Tunneled central line placement, triple lumen catheter. Ultrasound-guided needle placement right internal jugular vein. Fluoroscopy AP Chest, portable single view IV conscious sedation Exam date and time: April 01, 2025 1352 hours INDICATIONS: Need for long-term intravenous antibiotic therapy. Informed consent provided Technique: A timeout was completed, verifying correct patient, procedure, site, positioning, and special equipment if applicable The patient was placed in a dependent position appropriate for central line placement based on the vein to be cannulated. Under physician supervision, percent 2 mg administered intravenously for moderate sedation. Pulse oximetry, heart rate, blood pressure continuously monitored with an independent training observer present. The physician spent 15 minutes of [id number] sedation time with the patient The patient's right neck was prepped and draped in sterile fashion. Maximum Sterile Barrier Technique used including cap, mask, sterile gown, sterile gloves, and sterile full body drape. If ultrasound technique used: sterile gel and sterile probe covers. Hand Hygiene performed using proper scrub, soap and water, or alcohol-based hand rub. Ultrasound utilized to confirm patency of the right internal jugular vein Utilizing ultrasonographic guidance successful 21-gauge needle puncture into the right internal jugular vein Ultrasound images were recorded and stored. Successful micropuncture with a 21-gauge needle was performed. 0.18 wire guide was introduced into the IVC under fluoroscopic guidance. The wires is then exchanged for a 0.25 J-wire guide placed in the vena cava. The triple lumen catheter dilator is introduced, followed by the catheter in the SVC in proper position under fluoroscopic guidance. Catheter is tunneled Successful aspiration of blood and flushing with heparinized saline is then performed in the 3 venous limbs. The catheter is sutured in place to the skin and a sterile dressing applied. Perfusion to the extremity distal to the point of catheter insertion was checked and found to be adequate The attending radiologist was present for the entire procedure Estimated blood loss2 cc. Findings: Under fluoroscopy, the tip of the catheter is in good position in the vena cava. Portable chest x-ray, post line placement, as ordered. Impression: Successful ultrasound-guided needle placement right internal jugular vein. Successful placement of tunneled dual lumen catheter central line, percutaneous. Fluoroscopy 0.2 minute radiation dose 1.43 milligray 1 spot fluoroscopic chest film. AP portable chest completion procedure demonstrates satisfactory position central line tip SVC. May use central line.
--- NOTE | 2025-04-01 12:23 | PC.SS ---
Addendum entered by Sonya Plasencia 04/01/25 16:22: SS will need to cancel transport. Physician team is cancelling d/c. Consult for Gi Addendum entered by Sonya Plasencia 04/01/25 15:59: SS coordinated gurney transport through [employer]. Reference# [id number] with a tentative pickling machine operator time of 7:30p.m. to send to [facility]. Facility is aware. Original Note: Follow up note: Patient is a resident of [facility]. She is expected to return. Physician team states she will need i.v. antibiotics for 6 weeks. They were not able to get a picc line. SS inquired with Isabel @ [facility] if they can accept patient with a central line. She agreed for 6 weeks on i.v. rocephin. D/c pending.
[2025-04-01] MEDS: MIDAZOLAM INJ 1 MG/ML VIAL 2 ML 2 MG IVP (14:18)
[2025-04-01] MEDS: LIDOCAINE INJ PF 1% 30 ML VIAL 5 ML INFL (14:18)
--- NOTE | 2025-04-01 15:59 | ESPR_ITS ---
<Statement entered by Brown Aguillon MD - 04/02/25 14:16> I discussed with and supervised the architecture internship physician involved in the care of this patient. Patient assessment and plan was discussed with entire medicine team, including my attending. I agree with the assessment and plan as documented by architecture internship doctor. Patient care was discussed with my attending physician Dr. Chet Aguillon, PGY-2 Documentation for date of: 04/01/25 Subjective Subjective Interval history: Patient was seen and examined by the bedside. No acute overnight events. Patient reports having epigastric pain provoked by food, EGD showed esophagitis, gastritis and duodenopathy. Colonoscopy is planned, patient was started on GoLytely. Will continue with metoclopramide, pantoprazole and gabapentin. Exam Vital Signs Temp Pulse Resp BP Pulse Ox O2 Del Method O2 Flow Rate 97.2 F 75 24 H 143/51 H 99 Nasal Cannula 2 04/01/25 08:00 04/01/25 14:30 04/01/25 14:30 04/01/25 14:30 04/01/25 14:30 04/01/25 14:30 04/01/25 14:30 Narrative Exam Constitutional: Alert. HEENT: NCAT, patent nares, moist mucous membranes Heart: Normal S1 and S2, no murmurs, no JVD Lungs: CTAB, no wheezing, no rhonchi Abdomen: Obese, soft, tender to palpation epigastric and left quadrant, functional ileostomy noted, bowel sounds present Genitourinary: No flank pain, no bladder tenderness on palpation Extremities: Right AKA, left third digit amputation Skin: Approximately 4.5 cm sacral ulcer, stage IV, bone visible Psychiatric: Appropriate affect, AO x 3, cooperative Objective Labs 04/02/25 08:06 04/02/25 08:06 Quality Measures Quality Measures VTE prophylaxis Advance care planning discussed with:: other Assessment & Plan Assessment Current Active Medications: Generic Name Dose Route Start Last Admin Trade Name Freq PRN Reason Stop Dose Admin Acetaminophen 650 mg 03/28/25 18:17 Acetaminophen 325 Mg Tablet PO 04/27/25 18:16 Q6H PRN Fever >101.5 Al Hydrox/Mg Hydrox/Simethicone 15 ml 04/01/25 13:45 04/01/25 14:43 Mg Hyd/Al Hyd/Ashley (Maalox Reg) Susp 30 Ml Udc PO 05/01/25 13:44 Not Given QID DEWAYNE Atorvastatin Calcium 40 mg 03/29/25 21:00 03/31/25 21:42 Atorvastatin Calcium 20 Mg Tablet PO 04/28/25 20:59 Not Given HS DEWAYNE Dextrose 25 ml 03/28/25 21:09 Dextrose 50%-Water Inj 50 Ml Syringe IV 04/27/25 21:08 Q15MIN PRN BG 50-70 responsive npo pt Dextrose 50 ml 03/28/25 21:09 Dextrose 50%-Water Inj 50 Ml Syringe IV 04/27/25 21:08 Q15MIN PRN BG <50 OR BG <70 & pt unresponsive Doxycycline Hyclate 100 mg 03/28/25 21:00 04/01/25 08:14 Doxycycline 100 Mg Tablet PO 04/04/25 20:59 100 mg BID DEWAYNE Administration Gabapentin 300 mg 03/28/25 22:00 04/01/25 14:43 Gabapentin 300 Mg Capsule PO 04/27/25 21:59 Not Given TID DEWAYNE Glucagon 1 mg 03/28/25 21:09 Glucagon Inj 1 Mg Vial IM Q15MIN PRN BG <70, and no IV access Heparin Sodium (Porcine) 5,000 unit 03/28/25 22:00 04/01/25 14:20 Heparin Sod Inj 5000 Unit/Ml Vial SC 04/11/25 21:59 Not Given Q8HR DEWAYNE Hydralazine HCl 10 mg 03/28/25 18:45 Hydralazine Inj 20 Mg/Ml Vial IVP 04/27/25 18:44 Q4H PRN Hypertension Ceftriaxone Sodium/Dextrose 2 gm in 50 mls @ 100 mls/hr 04/01/25 09:00 04/01/25 08:16 Rocephin/D5w 2gm IV 04/05/25 17:16 100 mls/hr QDAY DEWAYNE Administration Insulin Human Lispro 0 unit 03/29/25 17:00 04/01/25 11:43 Insulin Lispro (Admelog) 1 Unit/0.01 Ml Unit SC 04/28/25 16:59 1 unit AC DEWAYNE Administration Protocol Losartan Potassium 25 mg 03/30/25 09:00 04/01/25 08:16 Losartan Potassium 25 Mg Tablet PO 04/29/25 08:59 25 mg QDAY DEWAYNE Administration Naloxegol 12.5 mg 03/29/25 15:30 04/01/25 06:12 Naloxegol Oxalate 25 Mg Tablet (Non-Formulary) PO 04/28/25 15:29 Not Given ACBR DEWAYNE Ondansetron HCl 4 mg 04/01/25 14:22 Ondansetron Inj 2 Mg/Ml Inj 2 Ml IVP 05/01/25 14:21 Q6HR PRN NAUSEA OR VOMITING Protocol Oxycodone/Acetaminophen 1 tab 04/01/25 13:42 Oxycodone/Apap 5/325 Tablet PO 04/02/25 23:18 Q6HR PRN PAIN SCALE 4-10(Mod-Sev Pantoprazole Sodium 40 mg 03/29/25 09:00 04/01/25 08:14 Pantoprazole 40 Mg Tablet PO 04/28/25 08:59 40 mg QDAY DEWAYNE Administration Sodium Hypochlorite 473 ml 03/29/25 21:00 04/01/25 03:01 Sod Hypochlorite 1/4 Str 473 Ml Btl IRRIG 04/28/25 20:59 Not Given HS DEWAYNE Plan 64-year-old female patient with significant medical history for endometrial carcinoma SP hysterectomy and bilateral salpingo oophorectomy ([facility] 2016), SP radiation and chemotherapy (until 2021), SP ileostomy (rectovaginal fistula in 2022), HLD, PAD SP right AKA (2021) and chronic indwelling Michel catheter (since 2022) bedbound from SNF for radiating epigastric abdominal pain for the last 3 weeks. Patient aditted for ESBL UTI and osteomyelitis. Appreciate recommendations from ID and GI teams. Catheter associated UTI ESBL UTI (on previous culture) Indwelling Michel catheter Hx of endometrial CA s/p hysterectomy Postprandial abdominal pain On admission patient complaining of dysuria Urinalysis indicative of UTI CT redemonstrated soft tissue infection of the posterior lower back destroying coccygeal segment, normal appendix, no bowel obstruction, no renal calculi, no hydronephrosis. Urine culture earlier this year grew ESBL. Urinary catheter exchanged. Complaining of chronic, postprandial abdominal pain that failed multiple medical intervention including PPIs, debility medications and bowel regiment. Reports she had an EGD several years ago which was negative. No concern for mesenteric ischemia, however will consider CTA if systems persist or worsen. We have involved GI team on board, and ordered H. pylori test. Cultures remain negative. 03/31/25: EGD negative for signs of bleeding, showed esophagitis, gastritis, duodenopathy. Biopsy was sent. Plan: ? Discontinued MEROPENEM (03/28 to 03/31) - Ceftriaxone 2 mg qday 03/31-current ? Pending H. pylori ? 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 S/p IV ERTAPENEM and VANCOMYCIN through PICC line on 02/09/2025. CT redemonstrated soft tissue infection of the posterior lower back ESR 57 > 58, CRP 4.9 > 3.6. MRSA screen positive, awaiting ID recs. ID recommended 6 weeks of ROCEPHIN 2 mg daily and DOXYCYCLINE 100 BID. Will continue with DOXYCYCLNE and MEROPENIM for UTI (likely ESBL based on prev cx) until new urine cx return. 04/01/25: Patient had a tunnelled PICC catheter placed. Will require 6 weeks of antibiotic therapy until May 12. ? DOXYCYCLINE (03/28 to present) ? CEFTRIAXONE 2 mg daily (03/31 to present) ? HYDROMORPHONE IV for pain ? Wound care T2 IDDM A1c 6.9 this visit. ? INSULIN sliding scale ? Accu-Cheks ? Pending repeat A1c HLD ? Continue home ATORVASTATIN 40 mg daily Normocytic anemia ? Holding iron supplement in setting of active infection ? Daily CBC ? Transfuse if Hgb less than 7 Health maintenance Diet: Clear liquid diet GI prophylaxis: PROTONIX DVT prophylaxis: HEPARIN subcu Antibiotics: ceftriaxone +doxy CODE STATUS: Limited code Disposition: Pending ID recommendations Plan of care discussed with attending Dr. Rosenberg, PGY-[address] Aguillon. Lena Mena MD, PGY 1. Attending Provider Attestation/Addendum I attest that I was physically present for the evaluation, physical examination, lab and imaging review of the patient with the residents. I discussed the case with the residents and agree with the findings and plans of care as documented above. Patient continues to complain of abdominal pain. Had a long discussion regarding EGD finding and possible causes of abdominal pain. Plan for colonoscopy tomorrow with GI. Ordered tunneled catheter placement for continuation of IV antibiotics on discharge. Keshav Rosenberg MD
[2025-04-01] MEDS: MG HYD/AL HYD/SIME (Maalox Reg) SUSP 30 ML UDC 15 ML PO ×2 (16:01→20:24)
[2025-04-01] MEDS: NA SU/NAHCO3/KC/PEG (Golytely) 4,000 ML BTL 4000 ML PO (16:01)
[2025-04-01] MEDS: SOD HYPOCHLORITE 1/4 STR 473 ML BTL IRRIG (20:26)
[2025-04-01] MEDS: GABAPENTIN 300 MG CAPSULE PO (21:49)
[2025-04-01] MEDS: HEPARIN SOD INJ 5000 UNIT/ML VIAL SC (21:49)
[2025-04-02] VITALS (7 sets, daily range): BP systolic 120–142; BP diastolic 47–56; PULSE 73–85; RESP 16–18; TEMP 36.2–36.5; O2SAT 98–99
[2025-04-02] MEDS: GABAPENTIN 300 MG CAPSULE PO ×2 (05:43→21:40)
[2025-04-02] MEDS: MG HYD/AL HYD/SIME (Maalox Reg) SUSP 30 ML UDC 15 ML PO ×4 (05:43→21:44)
[2025-04-02] MEDS: cefTRIAXone/D5w 2gm 2 GM/50 ML BAG IV (08:52)
[2025-04-02] MEDS: PANTOPRAZOLE 40 MG TABLET PO (08:53)
[2025-04-02] MEDS: DOXYCYCLINE 100 MG TABLET PO ×2 (08:53→21:40)
[2025-04-02] MEDS: oxyCODONE/APAP 5/325 TABLET 1 TAB PO ×2 (09:07→17:24)
[2025-04-02 09:34] LABS: Basophils % (Auto) 0 % (0-2.5); Eosinophils # (Auto) 0.9 Thou/mm3 (0.0-0.5); Eosinophils % (Auto) 9 % (0-10); Hematocrit 26.7 % (36.0-46.0); Hemoglobin 8.9 g/dL (12.0-16.0); Immature Granulocytes % (Auto) 0 % (0-0); Immature Granulocytes Auto 0.02 Thou/mm3 (0.00-0.00); Lymphocytes # (Auto) 3.5 Thou/mm3 (1.0-4.8); Lymphocytes % (Auto) 34 % (10-50); Mean Corpuscular HGB Conc 33.3 g/dl (31.0-37.0); Mean Corpuscular Hemoglobin 28.3 pg (25.0-35.0); Mean Corpuscular Volume 85 fL (80-100); Monocytes # (Auto) 0.5 Thou/mm3 (0.0-0.8); Monocytes % (Auto) 5 % (0-12); Neutrophils # (Auto) 5.1 Thou/mm3 (1.8-7.7); Neutrophils % (Auto) 51 % (37-80); Nucleated Red Blood Cell % 0 /100 WBC (0); Platelet Count 345 Thou/mm3 (140-440); RDW Standard Deviation 41.4 fL (36.4-46.3); Red Blood Count 3.14 Miln/mm3 (4.00-5.20)
[2025-04-02 09:58] LABS: Alanine Aminotransferase 16 U/L (10-49); Albumin, Serum 3.3 gm/dL (3.4-4.8); Alkaline Phosphatase 83 U/L (46-116); Anion Gap 7 (7-16); Aspartate Amino Transferase 26 U/L (0-34); BUN/Creatinine Ratio 13 Ratio (12-20); Bilirubin,Total < 0.2 mg/dL (0.3-1.2); Blood Urea Nitrogen 8 mg/dL (9-23); Calcium 8.5 mg/dL (8.3-10.6); Calcium (Corrected) 9.1 mg/dL (8.5-10.1); Chloride 102 mMol/L (98-107); Creatinine (Component) 0.6 mg/dL (0.6-1.3); Estimated Creatinine Clearance 89.5 mL/min (>60); Globulin 3.3 gm/dL (2.3-3.5); Glucose 126 mg/dL (74-106); Osmolality,Calculated 274 (275-295); Potassium 4.2 mMol/L (3.4-5.1); Sodium 137 mMol/L (136-145); Total Protein 6.6 gm/dL (5.7-8.2); eGFR > 60 See Note
--- NOTE | 2025-04-02 14:26 | ESPR_ITS ---
<Statement entered by Brown Aguillon MD - 04/04/25 02:15> I discussed with and supervised the senior international tax manager physician involved in the care of this patient. Patient assessment and plan was discussed with entire medicine team, including my attending. I agree with the assessment and plan as documented by senior international tax manager doctor. Patient care was discussed with my attending physician Dr.Bishwakarma Brown Aguillon, PGY-2 Documentation for date of: 04/02/25 Subjective Subjective Interval history: Patient was seen and examined by the bedside. No acute overnight events. Patient reports her abdominal pain is slightly better today. She's on liquid diet, drinks GoLytely. Had a long discussion regarding the nature of pain, treatment and causes of chronic pain. Patient reported that she had multiple CT scans of the abdomen which were normal. She was explained that this may rule out some pathologies, but there other pathologies that can't be seen on CT scan. Patient reports diffuse abdominal pain that irradiates 'to the esophagus', 'up to the brain'. She was explained that diabetic neuropathy could be contributing to her pain. Pending colonoscopy. Exam Vital Signs Temp Pulse Resp BP Pulse Ox O2 Del Method O2 Flow Rate 97.3 F 78 17 120/50 L 99 Room Air 2 04/02/25 12:00 04/02/25 12:00 04/02/25 12:00 04/02/25 12:00 04/02/25 12:00 04/02/25 12:00 04/01/25 16:00 Narrative Exam Constitutional: Alert. HEENT: NCAT, patent nares, moist mucous membranes Heart: Normal S1 and S2, no murmurs, no JVD Lungs: CTAB, no wheezing, no rhonchi Abdomen: Obese, soft, diffusely tender to palpation, more in lower quadrants, functional ileostomy noted Genitourinary: No flank pain, no bladder tenderness on palpation Extremities: Right AKA, left third digit amputation Skin: Approximately 4.5 cm sacral ulcer, stage IV, bone visible Psychiatric: Appropriate affect, AO x 3, cooperative Objective Labs 04/05/25 05:51 04/05/25 05:51 Labs: Laboratory Results - last 24 hr 04/02/25 08:06 WBC 10.0 D RBC 3.14 L Hgb 8.9 L Hct 26.7 L MCV 85 MCH 28.3 MCHC 33.3 RDW Std Deviation 41.4 Plt Count 345 Neut % (Auto) 51 Lymph % (Auto) 34 [place] % (Auto) 5 Eos % (Auto) 9 Baso % (Auto) 0 Neut # (Auto) 5.1 Lymph # (Auto) 3.5 [place] # (Auto) 0.5 Eos # (Auto) 0.9 H Baso # (Auto) 0.0 Immature Gran # (Auto) 0.02 H Absolute Nucleated RBC 0.00 Immature Gran % 0 Nucleated RBC % 0 Sodium 137 Potassium 4.2 Chloride 102 Carbon Dioxide 28.0 Anion Gap 7 BUN 8 L Creatinine 0.6 Estim Creat Clear Calc 89.5 eGFR > 60 BUN/Creatinine Ratio 13 Glucose 126 H Calculated Osmolality 274 L Calcium 8.5 Corrected Calcium 9.1 Total Bilirubin < 0.2 L AST 26 ALT 16 Alkaline Phosphatase 83 Total Protein 6.6 Albumin 3.3 L Globulin 3.3 Albumin/Globulin Ratio 1.0 L Quality Measures Quality Measures VTE prophylaxis Advance care planning discussed with:: other Assessment & Plan Assessment Current Active Medications: Generic Name Dose Route Start Last Admin Trade Name Freq PRN Reason Stop Dose Admin Acetaminophen 650 mg 03/28/25 18:17 Acetaminophen 325 Mg Tablet PO 04/27/25 18:16 Q6H PRN Fever >101.5 Al Hydrox/Mg Hydrox/Simethicone 15 ml 04/01/25 13:45 04/02/25 12:11 Mg Hyd/Al Hyd/Ashley (Maalox Reg) Susp 30 Ml Udc PO 05/01/25 13:44 15 ml QID DEWAYNE Administration Atorvastatin Calcium 40 mg 03/29/25 21:00 04/01/25 20:24 Atorvastatin Calcium 20 Mg Tablet PO 04/28/25 20:59 Not Given HS DEWAYNE Dextrose 25 ml 03/28/25 21:09 Dextrose 50%-Water Inj 50 Ml Syringe IV 04/27/25 21:08 Q15MIN PRN BG 50-70 responsive npo pt Dextrose 50 ml 03/28/25 21:09 Dextrose 50%-Water Inj 50 Ml Syringe IV 04/27/25 21:08 Q15MIN PRN BG <50 OR BG <70 & pt unresponsive Doxycycline Hyclate 100 mg 03/28/25 21:00 04/02/25 08:53 Doxycycline 100 Mg Tablet PO 04/04/25 20:59 100 mg BID DEWAYNE Administration Gabapentin 300 mg 03/28/25 22:00 04/02/25 05:43 Gabapentin 300 Mg Capsule PO 04/27/25 21:59 300 mg TID DEWAYNE Administration Glucagon 1 mg 03/28/25 21:09 Glucagon Inj 1 Mg Vial IM Q15MIN PRN BG <70, and no IV access Heparin Sodium (Porcine) 5,000 unit 03/28/25 22:00 04/02/25 05:46 Heparin Sod Inj 5000 Unit/Ml Vial SC 04/11/25 21:59 Not Given Q8HR DEWAYNE Hydralazine HCl 10 mg 03/28/25 18:45 Hydralazine Inj 20 Mg/Ml Vial IVP 04/27/25 18:44 Q4H PRN Hypertension Ceftriaxone Sodium/Dextrose 2 gm in 50 mls @ 100 mls/hr 04/01/25 09:00 04/02/25 08:52 Rocephin/D5w 2gm IV 04/05/25 17:16 100 mls/hr QDAY DEWAYNE Administration Insulin Human Lispro 0 unit 03/29/25 17:00 04/02/25 12:05 Insulin Lispro (Admelog) 1 Unit/0.01 Ml Unit SC 04/28/25 16:59 Not Given AC DEWAYNE Protocol Losartan Potassium 25 mg 03/30/25 09:00 04/02/25 08:59 Losartan Potassium 25 Mg Tablet PO 04/29/25 08:59 Not Given QDAY DEWAYNE Metoclopramide HCl 5 mg 04/01/25 16:15 Metoclopramide Inj 5 Mg/Ml Vial 2 Ml IVP 05/01/25 16:14 Q8HR [facility] Protocol Naloxegol 12.5 mg 03/29/25 15:30 04/02/25 05:47 Naloxegol Oxalate 25 Mg Tablet (Non-Formulary) PO 04/28/25 15:29 Not Given ACBR DEWAYNE Oxycodone/Acetaminophen 1 tab 04/01/25 13:42 04/02/25 09:07 Oxycodone/Apap 5/325 Tablet PO 04/02/25 23:18 1 tab Q6HR PRN Administration PAIN SCALE 4-10(Mod-Sev Pantoprazole Sodium 40 mg 03/29/25 09:00 04/02/25 08:53 Pantoprazole 40 Mg Tablet PO 04/28/25 08:59 40 mg QDAY DEWAYNE Administration Sodium Hypochlorite 473 ml 03/29/25 21:00 04/01/25 20:26 Sod Hypochlorite 1/4 Str 473 Ml Btl IRRIG 04/28/25 20:59 1 applicatio HS DEWAYNE Administration Plan 64-year-old female patient with significant medical history for endometrial carcinoma SP hysterectomy and bilateral salpingo oophorectomy ([facility] 2016), SP radiation and chemotherapy (until 2021), SP ileostomy (rectovaginal fistula in 2022), HLD, PAD SP right AKA (2021) and chronic indwelling Michel catheter (since 2022) bedbound from SNF for radiating epigastric abdominal pain for the last 3 weeks. Patient aditted for ESBL UTI and osteomyelitis. Appreciate recommendations from ID and GI teams. Catheter associated UTI ESBL UTI (on previous culture) Indwelling Michel catheter Hx of endometrial CA s/p hysterectomy Postprandial abdominal pain On admission patient complaining of dysuria Urinalysis indicative of UTI CT redemonstrated soft tissue infection of the posterior lower back destroying coccygeal segment, normal appendix, no bowel obstruction, no renal calculi, no hydronephrosis. Urine culture earlier this year grew ESBL. Urinary catheter exchanged. Complaining of chronic, postprandial abdominal pain that failed multiple medical intervention including PPIs, debility medications and bowel regiment. Reports she had an EGD several years ago which was negative. No concern for mesenteric ischemia, however will consider CTA if systems persist or worsen. We have involved GI team on board, and ordered H. pylori test. Cultures remain negative. 03/31/25: EGD negative for signs of bleeding, showed esophagitis, gastritis, duodenopathy. Biopsy was sent. Plan: ? Discontinued MEROPENEM (03/28 to 03/31) - Ceftriaxone 2 mg qday 03/31-current ? Pending H. pylori ? 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 S/p IV ERTAPENEM and VANCOMYCIN through PICC line on 02/09/2025. CT redemonstrated soft tissue infection of the posterior lower back ESR 57 > 58, CRP 4.9 > 3.6. MRSA screen positive, awaiting ID recs. ID recommended 6 weeks of ROCEPHIN 2 mg daily and DOXYCYCLINE 100 BID. Will continue with DOXYCYCLNE and MEROPENIM for UTI (likely ESBL based on prev cx) until new urine cx return. 04/01/25: Patient had a tunnelled PICC catheter placed. Will require 6 weeks of antibiotic therapy until May 12. ? DOXYCYCLINE (03/28 to present) ? CEFTRIAXONE 2 mg daily (03/31 to present) ? HYDROMORPHONE IV for pain ? Wound care T2 IDDM A1c 6.9 this visit. ? INSULIN sliding scale ? Accu-Cheks ? Pending repeat A1c HLD ? Continue home ATORVASTATIN 40 mg daily Normocytic anemia ? Holding iron supplement in setting of active infection ? Daily CBC ? Transfuse if Hgb less than 7 Health maintenance Diet: Clear liquid diet GI prophylaxis: PROTONIX DVT prophylaxis: HEPARIN subcu Antibiotics: ceftriaxone +doxy CODE STATUS: Limited code Disposition: Pending ID recommendations Plan of care discussed with attending Dr. Rosenberg, PGY-[address] Aguillon. Lena Mena MD, PGY 1. Attending Provider Attestation/Addendum I attest that I was physically present for the evaluation, physical examination, lab and imaging review of the patient with the residents. I discussed the case with the residents and agree with the findings and plans of care as documented above. Keshav Rosenberg MD
--- NOTE | 2025-04-02 15:48 | PC.SS ---
SS follow up note; Pending Colonoscopy, on IV meds. Patient will discharge back to [facility].
--- NOTE | 2025-04-02 16:58 | PD.IMPROG ---
Documentation for date of: 04/02/25 Subjective Subjective Interval history: Patient was scheduled for a colonoscopy today additional GoLytely to continue she is not clear Exam Vital Signs Temp Pulse Resp BP Pulse Ox O2 Del Method O2 Flow Rate 97.3 F 78 17 120/50 L 99 Room Air 2 04/02/25 12:00 04/02/25 12:00 04/02/25 12:00 04/02/25 12:00 04/02/25 12:00 04/02/25 12:00 04/01/25 16:00 Objective Labs 04/02/25 08:06 04/02/25 08:06 Labs: Laboratory Results - last 24 hr 04/02/25 08:06 WBC 10.0 D RBC 3.14 L Hgb 8.9 L Hct 26.7 L MCV 85 MCH 28.3 MCHC 33.3 RDW Std Deviation 41.4 Plt Count 345 Neut % (Auto) 51 Lymph % (Auto) 34 [place] % (Auto) 5 Eos % (Auto) 9 Baso % (Auto) 0 Neut # (Auto) 5.1 Lymph # (Auto) 3.5 [place] # (Auto) 0.5 Eos # (Auto) 0.9 H Baso # (Auto) 0.0 Immature Gran # (Auto) 0.02 H Absolute Nucleated RBC 0.00 Immature Gran % 0 Nucleated RBC % 0 Sodium 137 Potassium 4.2 Chloride 102 Carbon Dioxide 28.0 Anion Gap 7 BUN 8 L Creatinine 0.6 Estim Creat Clear Calc 89.5 eGFR > 60 BUN/Creatinine Ratio 13 Glucose 126 H Calculated Osmolality 274 L Calcium 8.5 Corrected Calcium 9.1 Total Bilirubin < 0.2 L AST 26 ALT 16 Alkaline Phosphatase 83 Total Protein 6.6 Albumin 3.3 L Globulin 3.3 Albumin/Globulin Ratio 1.0 L Impressions Impression: Anemia blood loss c ontinue GoLytely prep Assessment & Plan A&P Narrative macrobid ok for 3d for urine and if you feel she has pelvic osteo, then iv rocephin 2 gm/day and po doxy 100bid for 6 weeks ok will see again prn Time Spent With Patient Time: Total time spent is greater than 50% in coordination of care (as documented) at patient's floor/unit and/or counseling patient:
[2025-04-02] MEDS: METOCLOPRAMIDE INJ 5 MG/ML VIAL 2 ML IVP (17:28)
[2025-04-02] MEDS: SOD HYPOCHLORITE 1/4 STR 473 ML BTL IRRIG (21:55)
[2025-04-03] VITALS (14 sets, daily range): BP systolic 125–156; BP diastolic 48–73; PULSE 72–87; RESP 13–18; TEMP 36.1–36.4; O2SAT 96–100
[2025-04-03] MEDS: SIMETHICONE 80 MG CHEW PO (00:19)
[2025-04-03 06:29] LABS: Basophils # (Auto) 0.1 Thou/mm3 (0.0-0.2); Basophils % (Auto) 1 % (0-2.5); Eosinophils # (Auto) 0.9 Thou/mm3 (0.0-0.5); Eosinophils % (Auto) 9 % (0-10); Hematocrit 27.5 % (36.0-46.0); Hemoglobin 9.2 g/dL (12.0-16.0); Immature Granulocytes % (Auto) 0 % (0-0); Immature Granulocytes Auto 0.02 Thou/mm3 (0.00-0.00); Lymphocytes # (Auto) 3.1 Thou/mm3 (1.0-4.8); Lymphocytes % (Auto) 31 % (10-50); Mean Corpuscular HGB Conc 33.5 g/dl (31.0-37.0); Mean Corpuscular Hemoglobin 28.6 pg (25.0-35.0); Mean Corpuscular Volume 85 fL (80-100); Monocytes # (Auto) 0.6 Thou/mm3 (0.0-0.8); Monocytes % (Auto) 6 % (0-12); Neutrophils # (Auto) 5.2 Thou/mm3 (1.8-7.7); Neutrophils % (Auto) 53 % (37-80); Nucleated Red Blood Cell % 0 /100 WBC (0); Platelet Count 345 Thou/mm3 (140-440); RDW Standard Deviation 41.1 fL (36.4-46.3); Red Blood Count 3.22 Miln/mm3 (4.00-5.20); White Blood Count 9.8 Thou/mm3 (3.6-11.0)
[2025-04-03 07:11] LABS: Alanine Aminotransferase 16 U/L (10-49); Albumin, Serum 3.4 gm/dL (3.4-4.8); Alkaline Phosphatase 87 U/L (46-116); Anion Gap 11 (7-16); Aspartate Amino Transferase 25 U/L (0-34); BUN/Creatinine Ratio 12 Ratio (12-20); Bilirubin,Total < 0.2 mg/dL (0.3-1.2); Blood Urea Nitrogen 7 mg/dL (9-23); Calcium 8.8 mg/dL (8.3-10.6); Calcium (Corrected) 9.3 mg/dL (8.5-10.1); Carbon Dioxide 28.4 mMol/L (20.0-31.0); Chloride 99 mMol/L (98-107); Creatinine (Component) 0.6 mg/dL (0.6-1.3); Estimated Creatinine Clearance 89.5 mL/min (>60); Globulin 3.4 gm/dL (2.3-3.5); Glucose 118 mg/dL (74-106); Magnesium 1.6 mg/dL (1.6-2.6); Osmolality,Calculated 274 (275-295); Phosphorous 2.4 mg/dL (2.4-5.1); Potassium 4.2 mMol/L (3.4-5.1); Sodium 138 mMol/L (136-145); Total Protein 6.8 gm/dL (5.7-8.2); eGFR > 60 See Note
--- NOTE | 2025-04-03 08:57 | PC.NURSE ---
Pt complaining of having some pain in the Left arm. Not feeling well. Asked to have blood sugar checked. Blood sugar 131. Called Dr. Aguillon and made aware. stated that Dr. Pacheco will come by to see patient.
[2025-04-03] MEDS: cefTRIAXone/D5w 2gm 2 GM/50 ML BAG IV (09:05)
[2025-04-03] MEDS: ACETAMINOPHEN IVPB 1,000 MG/100 ML VIAL 250 MG IV ×3 (10:04→21:46)
--- NOTE | 2025-04-03 11:32 | ESPR_ITS ---
Documentation for date of: 04/03/25 Subjective Subjective Interval history: No acute overnight events. Denies new or worsening symptoms. Denies fever, chills, headaches, chest pain, sob, cough, GI or urinary symptoms. Continued n.p.o., on GOLYTELY for colonoscopy later today. Vital and labs are stable. Exam Vital Signs Temp Pulse Resp BP Pulse Ox O2 Del Method O2 Flow Rate 97.2 F 72 18 125/48 L 99 Room Air 2 04/03/25 08:00 04/03/25 08:00 04/03/25 08:00 04/03/25 08:00 04/03/25 08:00 04/03/25 08:00 04/01/25 16:00 Narrative Exam Constitutional: Alert. HEENT: NCAT, patent nares, moist mucous membranes Heart: Normal S1 and S2, no murmurs, no JVD Lungs: CTAB, no wheezing, no rhonchi Abdomen: Obese, soft, diffusely tender to palpation, more in lower quadrants, functional ileostomy noted Genitourinary: No flank pain, no bladder tenderness on palpation Extremities: Right AKA, left third digit amputation Skin: Approximately 4.5 cm sacral ulcer, stage IV, bone visible Psychiatric: Appropriate affect, AO x 3, cooperative Objective Labs 04/04/25 07:02 04/04/25 05:52 Labs: Laboratory Results - last 24 hr 04/03/25 05:31 WBC 9.8 RBC 3.22 L Hgb 9.2 L Hct 27.5 L MCV 85 MCH 28.6 MCHC 33.5 RDW Std Deviation 41.1 Plt Count 345 Neut % (Auto) 53 Lymph % (Auto) 31 [place] % (Auto) 6 Eos % (Auto) 9 Baso % (Auto) 1 Neut # (Auto) 5.2 Lymph # (Auto) 3.1 [place] # (Auto) 0.6 Eos # (Auto) 0.9 H Baso # (Auto) 0.1 Immature Gran # (Auto) 0.02 H Absolute Nucleated RBC 0.00 Immature Gran % 0 Nucleated RBC % 0 Sodium 138 Potassium 4.2 Chloride 99 Carbon Dioxide 28.4 Anion Gap 11 BUN 7 L Creatinine 0.6 Estim Creat Clear Calc 89.5 eGFR > 60 BUN/Creatinine Ratio 12 Glucose 118 H Calculated Osmolality 274 L Calcium 8.8 Corrected Calcium 9.3 Phosphorus 2.4 Magnesium 1.6 Total Bilirubin < 0.2 L AST 25 ALT 16 Alkaline Phosphatase 87 Total Protein 6.8 Albumin 3.4 Globulin 3.4 Albumin/Globulin Ratio 1.0 L Quality Measures Quality Measures VTE prophylaxis Advance care planning discussed with:: patient Assessment & Plan Assessment Current Active Medications: Generic Name Dose Route Start Last Admin Trade Name Freq PRN Reason Stop Dose Admin Acetaminophen 650 mg 03/28/25 18:17 Acetaminophen 325 Mg Tablet PO 04/27/25 18:16 Q6H PRN Fever >101.5 Al Hydrox/Mg Hydrox/Simethicone 15 ml 04/01/25 13:45 04/03/25 05:10 Mg Hyd/Al Hyd/Ashley (Maalox Reg) Susp 30 Ml Udc PO 05/01/25 13:44 Not Given QID DEWAYNE Atorvastatin Calcium 40 mg 03/29/25 21:00 04/02/25 21:53 Atorvastatin Calcium 20 Mg Tablet PO 04/28/25 20:59 Not Given HS DEWAYNE Dextrose 25 ml 03/28/25 21:09 Dextrose 50%-Water Inj 50 Ml Syringe IV 04/27/25 21:08 Q15MIN PRN BG 50-70 responsive npo pt Dextrose 50 ml 03/28/25 21:09 Dextrose 50%-Water Inj 50 Ml Syringe IV 04/27/25 21:08 Q15MIN PRN BG <50 OR BG <70 & pt unresponsive Doxycycline Hyclate 100 mg 03/28/25 21:00 04/03/25 09:00 Doxycycline 100 Mg Tablet PO 04/04/25 20:59 Not Given BID DEWAYNE Gabapentin 300 mg 03/28/25 22:00 04/03/25 05:10 Gabapentin 300 Mg Capsule PO 04/27/25 21:59 Not Given TID DEWAYNE Glucagon 1 mg 03/28/25 21:09 Glucagon Inj 1 Mg Vial IM Q15MIN PRN BG <70, and no IV access Heparin Sodium (Porcine) 5,000 unit 03/28/25 22:00 04/03/25 05:10 Heparin Sod Inj 5000 Unit/Ml Vial SC 04/11/25 21:59 Not Given Q8HR DEWAYNE Hydralazine HCl 10 mg 03/28/25 18:45 Hydralazine Inj 20 Mg/Ml Vial IVP 04/27/25 18:44 Q4H PRN Hypertension Ceftriaxone Sodium/Dextrose 2 gm in 50 mls @ 100 mls/hr 04/01/25 09:00 04/03/25 09:05 Rocephin/D5w 2gm IV 04/05/25 17:16 100 mls/hr QDAY DEWAYNE Administration Acetaminophen 1,000 mg in 100 mls @ 250 mls/hr 04/03/25 09:07 04/03/25 10:04 Ofirmev Inj IV 04/04/25 03:30 250 mls/hr Q6H DEWAYNE Administration Insulin Human Lispro 0 unit 04/03/25 06:00 04/03/25 06:00 Insulin Lispro (Admelog) 1 Unit/0.01 Ml Unit SC 05/03/25 05:59 Not Given Q6HR DEWAYNE Protocol Losartan Potassium 25 mg 03/30/25 09:00 04/03/25 09:00 Losartan Potassium 25 Mg Tablet PO 04/29/25 08:59 Not Given QDAY DEWAYNE Metoclopramide HCl 5 mg 04/01/25 16:15 04/03/25 05:10 Metoclopramide Inj 5 Mg/Ml Vial 2 Ml IVP 05/01/25 16:14 Not Given Q8HR [facility] Protocol Naloxegol 12.5 mg 03/29/25 15:30 04/03/25 05:11 Naloxegol Oxalate 25 Mg Tablet (Non-Formulary) PO 04/28/25 15:29 Not Given ACBR DEWAYNE Pantoprazole Sodium 40 mg 03/29/25 09:00 04/03/25 09:00 Pantoprazole 40 Mg Tablet PO 04/28/25 08:59 Not Given QDAY DEWAYNE Sodium Hypochlorite 473 ml 03/29/25 21:00 04/02/25 21:55 Sod Hypochlorite 1/4 Str 473 Ml Btl IRRIG 04/28/25 20:59 1 applicatio HS DEWAYNE Administration Plan 64-year-old female patient with significant medical history for endometrial carcinoma SP hysterectomy and bilateral salpingo oophorectomy ([facility] 2016), SP radiation and chemotherapy (until 2021), SP ileostomy (rectovaginal fistula in 2022), HLD, PAD SP right AKA (2021) and chronic indwelling Michel catheter (since 2022) bedbound from SNF for radiating epigastric abdominal pain for the last 3 weeks. Patient aditted for ESBL UTI and osteomyelitis. Appreciate recommendations from ID and GI teams. Catheter associated UTI ESBL UTI (on previous culture) Indwelling Michel catheter Hx of endometrial CA s/p hysterectomy Postprandial abdominal pain On admission patient complaining of dysuria Urinalysis indicative of UTI CT redemonstrated soft tissue infection of the posterior lower back destroying coccygeal segment, normal appendix, no bowel obstruction, no renal calculi, no hydronephrosis. Urine culture earlier this year grew ESBL. Urinary catheter exchanged. Complaining of chronic, postprandial abdominal pain that failed multiple medical intervention including PPIs, debility medications and bowel regiment. Reports she had an EGD several years ago which was negative. No concern for mesenteric ischemia, however will consider CTA if systems persist or worsen. We have involved GI team on board, and ordered H. pylori test. Cultures remain negative. 03/31/25: EGD negative for signs of bleeding, showed esophagitis, gastritis, duodenopathy. Biopsy was sent. ? Discontinued MEROPENEM (03/28 to 03/31) - Ceftriaxone 2 mg qday 03/31-current ? Pending H. pylori ? 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 S/p IV ERTAPENEM and VANCOMYCIN through PICC line on 02/09/2025. CT redemonstrated soft tissue infection of the posterior lower back ESR 57 > 58, CRP 4.9 > 3.6. MRSA screen positive, awaiting ID recs. ID recommended 6 weeks of ROCEPHIN 2 mg daily and DOXYCYCLINE 100 BID. Will continue with DOXYCYCLNE and MEROPENIM for UTI (likely ESBL based on prev cx) until new urine cx return. 04/01/25: Patient had a tunnelled PICC catheter placed. Will require 6 weeks of antibiotic therapy until May 12. ? DOXYCYCLINE (03/28 to present) ? CEFTRIAXONE 2 mg daily (03/31 to present) ? HYDROMORPHONE IV for pain ? Wound care T2 IDDM A1c 6.9 this visit. ? INSULIN sliding scale ? Accu-Cheks ? Pending repeat A1c HLD ? Continue home ATORVASTATIN 40 mg daily Normocytic anemia ? Holding iron supplement in setting of active infection ? Daily CBC ? Transfuse if Hgb less than 7 Health maintenance Diet: Clear liquid diet GI prophylaxis: PROTONIX DVT prophylaxis: HEPARIN subcu Antibiotics: ceftriaxone +doxy CODE STATUS: Limited code Disposition: Pending ID recommendations Case was discussed with attending physician and senior resident. Thomas Pacheco DO PGYI Attending Provider Attestation/Addendum I have discussed and was present for the essential components of the history, physical examination, diagnosis, and treatment plan with the resident. I agree with the patient's care as documented by the resident and amended herein by me. Israel Kitchen DO. Although this document has been carefully reviewed, there may still be some phonetic and other typographical errors. These errors are purely grammatical due to imperfections in the software program and should not be construed in any way to compromise the substance of the patient's medical care during this visit.
[2025-04-03] MEDS: MG HYD/AL HYD/SIME (Maalox Reg) SUSP 30 ML UDC 15 ML PO ×2 (17:20→21:44)
[2025-04-03] MEDS: DOXYCYCLINE 100 MG TABLET PO (21:44)
[2025-04-03] MEDS: GABAPENTIN 300 MG CAPSULE PO (22:37)
--- NOTE | 2025-04-03 22:58 | PC.NURSE ---
Patient refusing to have the bed lowered to the low position. Ingrid, compressor house operator aware.
[2025-04-04] VITALS: BP 132/64; PULSE 67; RESP 17; TEMP 36.3; O2SAT 96
[2025-04-04 04:00] VITALS: BP 129/61; PULSE 82; RESP 16; TEMP 36.2; O2SAT 98
[2025-04-04] MEDS: GABAPENTIN 300 MG CAPSULE PO ×3 (05:59→22:21)
[2025-04-04] MEDS: MG HYD/AL HYD/SIME (Maalox Reg) SUSP 30 ML UDC 15 ML PO ×4 (06:01→22:08)
[2025-04-04 06:03] LABS: Basophils % (Auto) 1 % (0-2.5); Nucleated Red Blood Cell % 0 /100 WBC (0)
[2025-04-04 06:45] LABS: Albumin, Serum 2.7 gm/dL (3.4-4.8); Albumin/Globulin Ratio 0.6 (1.2-2.2); Alkaline Phosphatase 135 U/L (46-116); Anion Gap 12 (7-16); Aspartate Amino Transferase 31 U/L (0-34); BUN/Creatinine Ratio 8 Ratio (12-20); Bilirubin,Total 0.8 mg/dL (0.3-1.2); Blood Urea Nitrogen < 5 mg/dL (9-23); Carbon Dioxide 21.6 mMol/L (20.0-31.0); Chloride 103 mMol/L (98-107); Creatinine (Component) 0.6 mg/dL (0.6-1.3); Estimated Creatinine Clearance 89.5 mL/min (>60); Globulin 4.3 gm/dL (2.3-3.5); Glucose 110 mg/dL (74-106); Magnesium 1.2 mg/dL (1.6-2.6); Osmolality,Calculated 272 (275-295); Phosphorous 2.6 mg/dL (2.4-5.1); Potassium 3.4 mMol/L (3.4-5.1); Sodium 137 mMol/L (136-145); eGFR > 60 See Note
[2025-04-04 06:47] LABS: Alanine Aminotransferase 8 U/L (10-49)
[2025-04-04 07:43] LABS: Basophils # (Auto) 0.1 Thou/mm3 (0.0-0.2); Eosinophils % (Auto) 9 % (0-10); Hematocrit 29.2 % (36.0-46.0); Hemoglobin 9.6 g/dL (12.0-16.0); Immature Granulocytes % (Auto) 0 % (0-0); Immature Granulocytes Auto 0.03 Thou/mm3 (0.00-0.00); Lymphocytes # (Auto) 2.9 Thou/mm3 (1.0-4.8); Lymphocytes % (Auto) 27 % (10-50); Mean Corpuscular HGB Conc 32.9 g/dl (31.0-37.0); Mean Corpuscular Hemoglobin 28.7 pg (25.0-35.0); Mean Corpuscular Volume 87 fL (80-100); Monocytes # (Auto) 0.6 Thou/mm3 (0.0-0.8); Monocytes % (Auto) 6 % (0-12); Neutrophils % (Auto) 57 % (37-80); RDW Standard Deviation 42.5 fL (36.4-46.3); Red Blood Count 3.35 Miln/mm3 (4.00-5.20)
[2025-04-04 07:56] LABS: Platelet Count 350 Thou/mm3 (140-440); White Blood Count 10.5 Thou/mm3 (3.6-11.0)
[2025-04-04 07:57] VITALS: BP 123/48; PULSE 89; RESP 17; TEMP 36.1; O2SAT 98
--- NOTE | 2025-04-04 08:16 | PC.NURSE ---
nurse provided safety education in regards to high bed setting, patient is alert and oriented x4, she reports claustrophobia and wants to see out the window. She reports she is not able to walk and will use call light for assistance. Charge nurse aware.
[2025-04-04] MEDS: cefTRIAXone/D5w 2gm 2 GM/50 ML BAG IV (09:42)
[2025-04-04] MEDS: PANTOPRAZOLE 40 MG TABLET PO (09:43)
[2025-04-04] MEDS: DOXYCYCLINE 100 MG TABLET PO (09:43)
[2025-04-04 12:00] VITALS: BP 123/56; PULSE 77; RESP 18; TEMP 36.1; O2SAT 98
--- NOTE | 2025-04-04 12:14 | PC.NURSE ---
Dr. Mares and Dr. Hardwick were made aware of significant amount of vaginal discharge, both came up to at bedside to assess pt. No new orders. Pt is alert and oriented x4.
--- NOTE | 2025-04-04 13:33 | PD.IMPROG ---
Documentation for date of: 04/04/25 Subjective Subjective Interval history: Vaginal secretions suggestive of colonic fistula Case discussed with internal medicine team Ordered Gastrografin B through the stoma Exam Vital Signs Temp Pulse Resp BP Pulse Ox O2 Del Method O2 Flow Rate 97 F 77 18 123/56 L 98 Room Air 3 04/04/25 12:00 04/04/25 12:00 04/04/25 12:00 04/04/25 12:00 04/04/25 12:00 04/04/25 12:00 04/03/25 15:15 Objective Labs 04/04/25 07:02 04/04/25 05:52 Labs: Laboratory Results - last 24 hr 04/04/25 04/04/25 05:52 07:02 WBC 10.5 RBC 3.35 L Hgb 9.6 L Hct 29.2 L MCV 87 MCH 28.7 MCHC 32.9 RDW Std Deviation 42.5 Plt Count 350 Neut % (Auto) 57 Lymph % (Auto) 27 [place] % (Auto) 6 Eos % (Auto) 9 Baso % (Auto) 1 Neut # (Auto) 6.0 Lymph # (Auto) 2.9 [place] # (Auto) 0.6 Eos # (Auto) 1.0 H Baso # (Auto) 0.1 Immature Gran # (Auto) 0.03 H Absolute Nucleated RBC 0.00 Immature Gran % 0 Nucleated RBC % 0 Sodium 137 Potassium 3.4 D Chloride 103 Carbon Dioxide 21.6 Anion Gap 12 BUN < 5 L Creatinine 0.6 Estim Creat Clear Calc 89.5 eGFR > 60 BUN/Creatinine Ratio 8 L Glucose 110 H Calculated Osmolality 272 L Calcium 8.0 L Corrected Calcium 9.0 Phosphorus 2.6 Magnesium 1.2 L Total Bilirubin 0.8 D AST 31 ALT 8 L Alkaline Phosphatase 135 H D Total Protein 7.0 Albumin 2.7 L D Globulin 4.3 H Albumin/Globulin Ratio 0.6 L Impressions Impression: Rule out colovaginal fistula Gastrografin BE through the stoma Assessment & Plan A&P Narrative macrobid ok for 3d for urine and if you feel she has pelvic osteo, then iv rocephin 2 gm/day and po doxy 100bid for 6 weeks ok will see again prn Time Spent With Patient Time: Total time spent is greater than 50% in coordination of care (as documented) at patient's floor/unit and/or counseling patient:
[2025-04-04] MEDS: METOCLOPRAMIDE INJ 5 MG/ML VIAL 2 ML IVP (13:39)
[2025-04-04] MEDS: HEPARIN SOD INJ 5000 UNIT/ML VIAL SC (13:40)
--- NOTE | 2025-04-04 14:24 | PC.NURSE ---
Dr. Hardwick at bedside to assess pt due to c/o generalize weakness and anxiety. to put in orders.
--- NOTE | 2025-04-04 14:27 | PC.NURSE ---
wound care completed per POC.
--- NOTE | 2025-04-04 14:56 | ESPR_ITS ---
Documentation for date of: 04/04/25 Subjective Subjective Interval history: No acute overnight events. Examined the bedside. Feels slightly better today, although endorsing persistent abdominal pain. Denies fever, chills, headaches, chest pain, sob, cough, GI or urinary symptoms. Colonoscopy yesterday through the stoma up to the proximal ascending colon showed lots of AVMs in the right colon, however exam was incomplete as she did not tolerate FENTANYL in procedure being difficult and poor prep. No plan on repeating colonoscopy from GI, but recommended GASTROGRAFIN study to rule out new colovaginal fistula specially given the mucousy vaginal discharge expressed earlier today. Exam Vital Signs Temp Pulse Resp BP Pulse Ox O2 Del Method O2 Flow Rate 97 F 77 18 123/56 L 98 Room Air 3 04/04/25 12:00 04/04/25 12:04/04/25 12:04/04/25 12:04/04/25 12:04/04/25 12:04/03/25 15:15 Narrative Exam Constitutional: Alert. HEENT: NCAT, patent nares, moist mucous membranes Heart: Normal S1 and S2, no murmurs, no JVD Lungs: CTAB, no wheezing, no rhonchi Abdomen: Obese, soft, diffusely tender to palpation, more in lower quadrants, functional ileostomy noted Genitourinary: No flank pain, no bladder tenderness on palpation Extremities: Right AKA, left third digit amputation Skin: Approximately 4.5 cm sacral ulcer, stage IV, bone visible Psychiatric: Appropriate affect, AO x 3, cooperative Objective Labs 04/04/25 07:02 04/04/25 05:52 Labs: Laboratory Results - last 24 hr 04/04/25 04/04/25 05:52 07:02 WBC 10.5 RBC 3.35 L Hgb 9.6 L Hct 29.2 L MCV 87 MCH 28.7 MCHC 32.9 RDW Std Deviation 42.5 Plt Count 350 Neut % (Auto) 57 Lymph % (Auto) 27 [place] % (Auto) 6 Eos % (Auto) 9 Baso % (Auto) 1 Neut # (Auto) 6.0 Lymph # (Auto) 2.9 [place] # (Auto) 0.6 Eos # (Auto) 1.0 H Baso # (Auto) 0.1 Immature Gran # (Auto) 0.03 H Absolute Nucleated RBC 0.00 Immature Gran % 0 Nucleated RBC % 0 Sodium 137 Potassium 3.4 D Chloride 103 Carbon Dioxide 21.6 Anion Gap 12 BUN < 5 L Creatinine 0.6 Estim Creat Clear Calc 89.5 eGFR > 60 BUN/Creatinine Ratio 8 L Glucose 110 H Calculated Osmolality 272 L Calcium 8.0 L Corrected Calcium 9.0 Phosphorus 2.6 Magnesium 1.2 L Total Bilirubin 0.8 D AST 31 ALT 8 L Alkaline Phosphatase 135 H D Total Protein 7.0 Albumin 2.7 L D Globulin 4.3 H Albumin/Globulin Ratio 0.6 L Quality Measures Quality Measures VTE prophylaxis Advance care planning discussed with:: patient Assessment & Plan Assessment Current Active Medications: Generic Name Dose Route Start Last Admin Trade Name Freq PRN Reason Stop Dose Admin Acetaminophen 650 mg 03/28/25 18:17 Acetaminophen 325 Mg Tablet PO 04/27/25 18:16 Q6H PRN Fever >101.5 Al Hydrox/Mg Hydrox/Simethicone 15 ml 04/01/25 13:45 04/04/25 12:05 Mg Hyd/Al Hyd/Ashley (Maalox Reg) Susp 30 Ml Udc PO 05/01/25 13:44 15 ml QID DEWAYNE Administration Atorvastatin Calcium 40 mg 03/29/25 21:00 04/03/25 21:43 Atorvastatin Calcium 20 Mg Tablet PO 04/28/25 20:59 Not Given HS DEWAYNE Dextrose 25 ml 03/28/25 21:09 Dextrose 50%-Water Inj 50 Ml Syringe IV 04/27/25 21:08 Q15MIN PRN BG 50-70 responsive npo pt Dextrose 50 ml 03/28/25 21:09 Dextrose 50%-Water Inj 50 Ml Syringe IV 04/27/25 21:08 Q15MIN PRN BG <50 OR BG <70 & pt unresponsive Doxycycline Hyclate 100 mg 03/28/25 21:00 04/04/25 09:43 Doxycycline 100 Mg Tablet PO 04/04/25 20:59 100 mg BID DEWAYNE Administration Gabapentin 300 mg 03/28/25 22:00 04/04/25 13:40 Gabapentin 300 Mg Capsule PO 04/27/25 21:59 300 mg TID DEWAYNE Administration Glucagon 1 mg 03/28/25 21:09 Glucagon Inj 1 Mg Vial IM Q15MIN PRN BG <70, and no IV access Heparin Sodium (Porcine) 5,000 unit 03/28/25 22:00 04/04/25 13:40 Heparin Sod Inj 5000 Unit/Ml Vial SC 04/11/25 21:59 5,000 unit Q8HR DEWAYNE Administration Hydralazine HCl 10 mg 03/28/25 18:45 Hydralazine Inj 20 Mg/Ml Vial IVP 04/27/25 18:44 Q4H PRN Hypertension Ceftriaxone Sodium/Dextrose 2 gm in 50 mls @ 100 mls/hr 04/04/25 09:00 04/04/25 09:42 Rocephin/D5w 2gm IV 04/11/25 08:59 100 mls/hr QDAY DEWAYNE Administration Insulin Human Lispro 0 unit 04/03/25 17:30 04/04/25 11:29 Insulin Lispro (Admelog) 1 Unit/0.01 Ml Unit SC 05/03/25 05:59 Not Given ACHS DEWAYNE Protocol Naloxegol 12.5 mg 03/29/25 15:30 04/03/25 05:11 Naloxegol Oxalate 25 Mg Tablet (Non-Formulary) PO 04/28/25 15:29 Not Given ACBR DEWAYNE Ondansetron HCl 4 mg 04/04/25 14:27 Ondansetron Inj 2 Mg/Ml Inj 2 Ml IVP 05/04/25 14:26 Q8HR PRN NAUSEA OR VOMITING Protocol Pantoprazole Sodium 40 mg 03/29/25 09:00 04/04/25 09:43 Pantoprazole 40 Mg Tablet PO 04/28/25 08:59 40 mg QDAY DEWAYNE Administration Sodium Hypochlorite 473 ml 03/29/25 21:00 04/02/25 21:55 Sod Hypochlorite 1/4 Str 473 Ml Btl IRRIG 04/28/25 20:59 1 applicatio HS DEWAYNE Administration Plan 64-year-old female patient with significant medical history for endometrial carcinoma SP hysterectomy and bilateral salpingo oophorectomy ([facility] 2016), SP radiation and chemotherapy (until 2021), SP ileostomy (rectovaginal fistula in 2022), HLD, PAD SP right AKA (2021) and chronic indwelling Michel catheter (since 2022) bedbound from SNF for radiating epigastric abdominal pain for the last 3 weeks. Patient aditted for ESBL UTI and osteomyelitis. Appreciate recommendations from ID and GI teams. Catheter associated UTI ESBL UTI (on previous culture) Indwelling Michel catheter Hx of endometrial CA s/p hysterectomy Hx rectovaginal fistula Postprandial abdominal pain On admission patient complaining of dysuria Urinalysis indicative of UTI CT redemonstrated soft tissue infection of the posterior lower back destroying coccygeal segment, normal appendix, no bowel obstruction, no renal calculi, no hydronephrosis. Urine culture earlier this year grew ESBL. Urinary catheter exchanged on admission and on 04/04/2025. Complaining of chronic, postprandial abdominal pain that failed multiple medical intervention including PPIs, debility medications and bowel regiment. Reports she had an EGD several years ago which was negative. No concern for mesenteric ischemia, however will consider CTA if systems persist or worsen. We have involved GI team on board, and ordered H. pylori test. Cultures remain negative. 03/31/25: EGD negative for signs of bleeding, showed esophagitis, gastritis, duodenopathy. Biopsy was sent, pending results. 04/03/2025: Colonoscopy through ileostomy up to the ascending colon showed significant inflammation and MVA in the right colon. Exam was incomplete due to poor tolerance, possible allergy to FENTANYL. GI does not plan on repeating colonoscopy. Will proceed with GASTROGRAFIN study to rule out potentially new colovaginal fistula as stated below. Completed course of ANTIBIOTICS (MEROPENEM and CEFTRIAXONE) for UTI, continued on CEFTRIAXONE and DOXYCYCLINE for osteomyelitis as below. Blood and urine cultures have been negative. ? ANTIEMETIC (avoid REGLAN due to sensitivity) ? PANTOPRAZOLE ? MAALOX QID ? Pending H. pylori Concern for potentially new colovaginal fistula This morning, there was relatively large amount of mucousy fluid in diaper. The source of the fluid is unclear on exam, but appears to be coming from the vagina. She has a known rectovaginal fistula. Colonoscopy yesterday was done through stoma and was incomplete (see above). No plan to repeat colonoscopy from GI perspective. However, GI recommended GASTROGRAFIN study through the ileostomy to rule out potential new fistula given history of pelvic cancer and chemo/radiation, already known fistula, and new findings. ? 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 S/p IV ERTAPENEM and VANCOMYCIN through PICC line on 02/09/2025. CT redemonstrated soft tissue infection of the posterior lower back ESR 57 > 58, CRP 4.9 > 3.6. MRSA screen positive, awaiting ID recs. ID recommended 6 weeks of ROCEPHIN 2 mg daily and DOXYCYCLINE 100 BID. Will continue with DOXYCYCLNE and MEROPENIM for UTI (likely ESBL based on prev cx) until new urine cx return. 04/01/25: Patient had a tunnelled PICC catheter placed. Will require 6 weeks of antibiotic therapy until May 12. ? DOXYCYCLINE (03/28 to present) ? CEFTRIAXONE 2 mg daily (03/31 to present) ? HYDROMORPHONE IV for pain ? Wound care T2 IDDM A1c 6.9 this visit. ? INSULIN sliding scale ? Accu-Cheks ? Pending repeat A1c HLD ? Continue home ATORVASTATIN 40 mg daily Normocytic anemia ? Holding iron supplement in setting of active infection ? Daily CBC ? Transfuse if Hgb less than 7 23 mm anterior bladder mass Abdominal CT was reviewed again by radiology showing a 23 mm mass contiguous with the anterior margin of the bladder. I spoke with the patient who is aware of the mass which was biopsied 2 months ago and was benign. Pathology report from 02/09/2025 is reviewed, showing benign findings. ? Recommended follow-up with urology outpatient Health maintenance Diet: Clear liquid diet GI prophylaxis: PROTONIX DVT prophylaxis: HEPARIN subcu Antibiotics: CEFTRIAXONE, DOXYCYCLINE CODE STATUS: Limited code Disposition: Pending ID recommendations Case was discussed with attending physician and senior resident. Thomas Pacheco DO PGYI Attending Provider Attestation/Addendum I have discussed and was present for the essential components of the history, physical examination, diagnosis, and treatment plan with the resident. I agree with the patient's care as documented by the resident and amended herein by me. Israel Kitchen DO. Although this document has been carefully reviewed, there may still be some phonetic and other typographical errors. These errors are purely grammatical due to imperfections in the software program and should not be construed in any way to compromise the substance of the patient's medical care during this visit.
[2025-04-04 16:00] VITALS: BP 115/54; PULSE 94; RESP 17; TEMP 36.5; O2SAT 99
[2025-04-04] MEDS: INSULIN LISPRO (AdmeLOG) 1 UNIT/0.01 ML UNIT SC ×2 (17:06→22:15)
--- NOTE | 2025-04-04 17:10 | PC.NURSE ---
RN attempted to put patient's bed in low position. Patient refuses states that she feels claustrophobic with bed in low position. Educated her on safety with bed being in high position. Patient states that she can't move and can't get out of bed so there is no reason why the bed should be in low position as she can't fall out of bed.
[2025-04-04] MEDS: Magnesium Sulfate 4 GM Ivpb 4 GM/50 ML BAG IV (18:25)
[2025-04-04 20:00] VITALS: BP 121/69; PULSE 80; RESP 16; TEMP 36.9; O2SAT 98
[2025-04-04] MEDS: SOD HYPOCHLORITE 1/4 STR 473 ML BTL IRRIG (22:10)
[2025-04-05] VITALS: BP 125/56; PULSE 81; RESP 16; TEMP 36.2; O2SAT 98
--- NOTE | 2025-04-05 | XR_ITS ---
Examination: Gastrografin enema 6 spot fluoroscopic films Fluoroscopy Date and time: April 05, 2025 0956 hours INDICATIONS: Diagnosis: Vaginal fistula TECHNIQUE AND FINDINGS: Attempts were made to fill retrograde Gastrografin via the colostomy The colostomy however opening is large and there is extensive reflux of Gastrografin despite a Michel catheter insertion with a large balloon There is limited filling of the colon Fluoroscopy 0.8 minutes radiation dose 38.45 milligray 6 spot fluoroscopic abdomen films IMPRESSION: Limited retrograde Gastrografin enema
[2025-04-05] MEDS: KETOROLAC INJ 30 MG/ML VIAL 15 MG IVP (00:27)
[2025-04-05 04:00] VITALS: BP 128/54; PULSE 75; RESP 16; TEMP 36.2; O2SAT 99
[2025-04-05 06:13] LABS: Basophils % (Auto) 0 % (0-2.5); Eosinophils # (Auto) 0.8 Thou/mm3 (0.0-0.5); Eosinophils % (Auto) 8 % (0-10); Hematocrit 26.7 % (36.0-46.0); Immature Granulocytes % (Auto) 0 % (0-0); Immature Granulocytes Auto 0.02 Thou/mm3 (0.00-0.00); Lymphocytes # (Auto) 3.6 Thou/mm3 (1.0-4.8); Lymphocytes % (Auto) 35 % (10-50); Mean Corpuscular HGB Conc 33.7 g/dl (31.0-37.0); Mean Corpuscular Hemoglobin 28.4 pg (25.0-35.0); Mean Corpuscular Volume 84 fL (80-100); Monocytes # (Auto) 0.7 Thou/mm3 (0.0-0.8); Monocytes % (Auto) 7 % (0-12); Neutrophils # (Auto) 5.1 Thou/mm3 (1.8-7.7); Neutrophils % (Auto) 50 % (37-80); Nucleated Red Blood Cell % 0 /100 WBC (0); Platelet Count 325 Thou/mm3 (140-440); RDW Standard Deviation 40.6 fL (36.4-46.3); Red Blood Count 3.17 Miln/mm3 (4.00-5.20); White Blood Count 10.3 Thou/mm3 (3.6-11.0)
[2025-04-05 06:35] LABS: Alanine Aminotransferase 13 U/L (10-49); Albumin, Serum 3.2 gm/dL (3.4-4.8); Alkaline Phosphatase 93 U/L (46-116); Anion Gap 7 (7-16); Aspartate Amino Transferase 19 U/L (0-34); BUN/Creatinine Ratio 16 Ratio (12-20); Bilirubin,Total < 0.2 mg/dL (0.3-1.2); Blood Urea Nitrogen 11 mg/dL (9-23); Calcium 8.5 mg/dL (8.3-10.6); Calcium (Corrected) 9.1 mg/dL (8.5-10.1); Carbon Dioxide 28.1 mMol/L (20.0-31.0); Chloride 96 mMol/L (98-107); Creatinine (Component) 0.7 mg/dL (0.6-1.3); Estimated Creatinine Clearance 76.7 mL/min (>60); Globulin 3.3 gm/dL (2.3-3.5); Glucose 203 mg/dL (74-106); Magnesium 2.6 mg/dL (1.6-2.6); Osmolality,Calculated 268 (275-295); Phosphorous 2.1 mg/dL (2.4-5.1); Potassium 4.1 mMol/L (3.4-5.1); Sodium 131 mMol/L (136-145); Total Protein 6.5 gm/dL (5.7-8.2); eGFR > 60 See Note
--- NOTE | 2025-04-05 06:40 | PC.NURSE ---
Patient refused Q2H turns last night.
[2025-04-05 08:00] VITALS: BP 129/60; PULSE 72; RESP 17; TEMP 36.4; O2SAT 99
[2025-04-05] MEDS: POTASSIUM PHOS 22.5 MMOL in SODIUM CHLORIDE 0.9% 500 ML 500 ML 82.778 MMOL IV (08:41)
[2025-04-05] MEDS: cefTRIAXone/D5w 2gm 2 GM/50 ML BAG IV (08:42)
--- NOTE | 2025-04-05 10:49 | XR_ITS ---
Examination: CT abdomen and pelvis without contrast. Coronal 3-D reconstructions. Sagittal 2-D reconstructions. Date and time of exam:April 05, 2025 1313 hours INDICATIONS: Post Gastrografin study for colovaginal fistula CTDI: vol (mGy): 10.6 DLP: (mGycm): 524 Technique: Axial images of the abdomen have been obtained, 3 mm slice thickness Intravenous contrast material has not been administered. Low dose protocols were performed. One or more of the following dose reduction techniques were used; automated exposure control, adjustment of the mA and/or KV according to patient size, use of iterative reconstruction technique. Findings: No focal liver or splenic lesions Tiny gallstones No pancreatic mass No hydronephrosis Left ileostomy Heavy abdominal aortic calcification Insufficient contrast to assess for colovaginal fistula Urinary Michel catheter with significant thickening of the urinary bladder wall IMPRESSION: Insufficient contrast in the colon to assess for colovaginal fistula
[2025-04-05 11:49] VITALS: BMI 25.5
[2025-04-05] MEDS: HEPARIN SOD INJ 5000 UNIT/ML VIAL SC ×2 (14:03→21:57)
[2025-04-05] MEDS: GABAPENTIN 300 MG CAPSULE PO ×2 (14:03→21:57)
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
[2025-04-05 16:00] VITALS: BP 138/62; PULSE 85; RESP 18; TEMP 36.3; O2SAT 99
[2025-04-05] MEDS: MG HYD/AL HYD/SIME (Maalox Reg) SUSP 30 ML UDC 15 ML PO ×2 (17:20→21:57)
--- NOTE | 2025-04-05 18:39 | ESPR_ITS ---
Documentation for date of: 04/05/25 Subjective Subjective Interval history: Patient evaluated Incomplete air-contrast barium enema because of the leakage of the Gastrografin through the stoma which is understandable CT scan of the abdomen pelvis with incomplete contrast could not fully rule out any colovaginal fistula It is difficult to have a colovaginal fistula once the sigmoid colon is resected Exam Vital Signs Temp Pulse Resp BP Pulse Ox O2 Del Method O2 Flow Rate 97.3 F 85 18 138/62 H 99 Room Air 3 04/05/25 16:00 04/05/25 16:00 04/05/25 16:00 04/05/25 16:00 04/05/25 16:00 04/05/25 16:00 04/03/25 15:15 Objective Labs 04/05/25 05:51 04/05/25 05:51 Labs: Laboratory Results - last 24 hr 04/05/25 05:51 WBC 10.3 RBC 3.17 L Hgb 9.0 L Hct 26.7 L MCV 84 MCH 28.4 MCHC 33.7 RDW Std Deviation 40.6 Plt Count 325 Neut % (Auto) 50 Lymph % (Auto) 35 [place] % (Auto) 7 Eos % (Auto) 8 Baso % (Auto) 0 Neut # (Auto) 5.1 Lymph # (Auto) 3.6 [place] # (Auto) 0.7 Eos # (Auto) 0.8 H Baso # (Auto) 0.0 Immature Gran # (Auto) 0.02 H Absolute Nucleated RBC 0.00 Immature Gran % 0 Nucleated RBC % 0 Sodium 131 L Potassium 4.1 D Chloride 96 L Carbon Dioxide 28.1 Anion Gap 7 BUN 11 Creatinine 0.7 Estim Creat Clear Calc 76.7 eGFR > 60 BUN/Creatinine Ratio 16 Glucose 203 H D Calculated Osmolality 268 L Calcium 8.5 Corrected Calcium 9.1 Phosphorus 2.1 L Magnesium 2.6 Total Bilirubin < 0.2 L D AST 19 ALT 13 Alkaline Phosphatase 93 D Total Protein 6.5 Albumin 3.2 L D Globulin 3.3 Albumin/Globulin Ratio 1.0 L Impressions Impression: Arteriovenous malformations right colon most likely the cause of posthemorrhagic anemia So far no evidence of colovaginal fistula and the studies are inconclusive Recommend surgical as well as LEAD DATA ENTRY OPERATOR consultation Assessment & Plan A&P Narrative macrobid ok for 3d for urine and if you feel she has pelvic osteo, then iv rocephin 2 gm/day and po doxy 100bid for 6 weeks ok will see again prn Time Spent With Patient Time: Total time spent is greater than 50% in coordination of care (as documented) at patient's floor/unit and/or counseling patient:
[2025-04-05 20:00] VITALS: BP 130/58; PULSE 87; RESP 19; TEMP 36.3; O2SAT 98
[2025-04-05] MEDS: SOD HYPOCHLORITE 1/4 STR 473 ML BTL IRRIG (21:50)
[2025-04-05] MEDS: SIMETHICONE 80 MG CHEW PO (21:57)
[2025-04-05] MEDS: INSULIN LISPRO (AdmeLOG) 1 UNIT/0.01 ML UNIT SC (22:10)
[2025-04-06] VITALS: BP 141/65; PULSE 94; RESP 17; TEMP 36.1; O2SAT 97
[2025-04-06 04:00] VITALS: BP 125/62; PULSE 77; RESP 17; TEMP 36.1; O2SAT 98
[2025-04-06 05:45] LABS: Basophils % (Auto) 0 % (0-2.5); Eosinophils # (Auto) 0.6 Thou/mm3 (0.0-0.5); Eosinophils % (Auto) 5 % (0-10); Hematocrit 28.7 % (36.0-46.0); Hemoglobin 9.4 g/dL (12.0-16.0); Immature Granulocytes % (Auto) 0 % (0-0); Immature Granulocytes Auto 0.04 Thou/mm3 (0.00-0.00); Lymphocytes # (Auto) 3.3 Thou/mm3 (1.0-4.8); Lymphocytes % (Auto) 29 % (10-50); Mean Corpuscular HGB Conc 32.8 g/dl (31.0-37.0); Mean Corpuscular Hemoglobin 28.7 pg (25.0-35.0); Mean Corpuscular Volume 88 fL (80-100); Monocytes # (Auto) 0.8 Thou/mm3 (0.0-0.8); Monocytes % (Auto) 7 % (0-12); Neutrophils # (Auto) 6.6 Thou/mm3 (1.8-7.7); Neutrophils % (Auto) 58 % (37-80); Nucleated Red Blood Cell % 0 /100 WBC (0); Platelet Count 375 Thou/mm3 (140-440); RDW Standard Deviation 42.3 fL (36.4-46.3); Red Blood Count 3.27 Miln/mm3 (4.00-5.20); White Blood Count 11.4 Thou/mm3 (3.6-11.0)
[2025-04-06 05:59] LABS: Alanine Aminotransferase 17 U/L (10-49); Albumin, Serum 3.4 gm/dL (3.4-4.8); Alkaline Phosphatase 104 U/L (46-116); Anion Gap 8 (7-16); Aspartate Amino Transferase 24 U/L (0-34); BUN/Creatinine Ratio 18 Ratio (12-20); Blood Urea Nitrogen 14 mg/dL (9-23); Calcium 8.5 mg/dL (8.3-10.6); Chloride 95 mMol/L (98-107); Creatinine (Component) 0.8 mg/dL (0.6-1.3); Estimated Creatinine Clearance 67.1 mL/min (>60); Globulin 3.4 gm/dL (2.3-3.5); Glucose 214 mg/dL (74-106); Osmolality,Calculated 269 (275-295); Potassium 4.5 mMol/L (3.4-5.1); Sodium 131 mMol/L (136-145); Total Protein 6.8 gm/dL (5.7-8.2); eGFR > 60 See Note
[2025-04-06 06:00] LABS: Bilirubin,Total < 0.2 mg/dL (0.3-1.2)
[2025-04-06] MEDS: MG HYD/AL HYD/SIME (Maalox Reg) SUSP 30 ML UDC 15 ML PO ×2 (06:10→11:53)
[2025-04-06] MEDS: HEPARIN SOD INJ 5000 UNIT/ML VIAL SC ×2 (06:10→13:53)
[2025-04-06] MEDS: NALOXEGOL OXALATE 25 MG TABLET (NON-FORMULARY) 12.5 MG PO (06:10)
[2025-04-06] MEDS: GABAPENTIN 300 MG CAPSULE PO ×2 (06:10→13:53)
--- NOTE | 2025-04-06 07:35 | CHAP ---
Patient was visited by a Spiritual Care Volunteer on 04/05/2025 between [id number] and [id number] and received comfort, encouragement, and/or prayer.
[2025-04-06] MEDS: INSULIN LISPRO (AdmeLOG) 1 UNIT/0.01 ML UNIT SC ×2 (07:47→11:53)
[2025-04-06 07:54] VITALS: BP 121/62; PULSE 92; RESP 17; TEMP 36.2; O2SAT 98
[2025-04-06] MEDS: PANTOPRAZOLE 40 MG TABLET PO (08:41)
[2025-04-06] MEDS: cefTRIAXone/D5w 2gm 2 GM/50 ML BAG IV (08:41)
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
--- NOTE | 2025-04-06 09:55 | PC.SS ---
Follow up note: Patient will d/c today back to facility. SS updated patient's sister, Mayra. Mayra would like to speak with physician prior to patient leaving today. SS will coordinate with floor nurse for transportation arrangements.
[2025-04-06] MEDS: DOXYCYCLINE 100 MG TABLET PO (10:16)
[2025-04-06 12:00] VITALS: BP 133/66; PULSE 82; RESP 17; TEMP 36.2; O2SAT 98
--- NOTE | 2025-04-06 12:52 | PD.IMPROG ---
Documentation for date of: 04/06/25 Subjective Subjective Interval history: All of the imaging studies were inconclusive for colovaginal fistula Will see the patient outpatient if need be agreeable discharge planning Exam Vital Signs Temp Pulse Resp BP Pulse Ox O2 Del Method O2 Flow Rate 97.2 F 82 17 133/66 H 98 Room Air 3 04/06/25 12:00 04/06/25 12:00 04/06/25 12:00 04/06/25 12:00 04/06/25 12:00 04/06/25 12:00 04/03/25 15:15 Objective Labs 04/06/25 04:27 04/06/25 04:27 Labs: Laboratory Results - last 24 hr 04/06/25 04:27 WBC 11.4 H RBC 3.27 L Hgb 9.4 L Hct 28.7 L MCV 88 MCH 28.7 MCHC 32.8 RDW Std Deviation 42.3 Plt Count 375 D Neut % (Auto) 58 Lymph % (Auto) 29 Bonner % (Auto) 7 Eos % (Auto) 5 Baso % (Auto) 0 Neut # (Auto) 6.6 Lymph # (Auto) 3.3 Bonner # (Auto) 0.8 Eos # (Auto) 0.6 H Baso # (Auto) 0.0 Immature Gran # (Auto) 0.04 H Absolute Nucleated RBC 0.00 Immature Gran % 0 Nucleated RBC % 0 Sodium 131 L Potassium 4.5 Chloride 95 L Carbon Dioxide 28.0 Anion Gap 8 BUN 14 Creatinine 0.8 Estim Creat Clear Calc 67.1 eGFR > 60 BUN/Creatinine Ratio 18 Glucose 214 H Calculated Osmolality 269 L Calcium 8.5 Corrected Calcium 9.0 Phosphorus 3.0 Magnesium 2.0 Total Bilirubin < 0.2 L AST 24 ALT 17 Alkaline Phosphatase 104 Total Protein 6.8 Albumin 3.4 Globulin 3.4 Albumin/Globulin Ratio 1.0 L Impressions Impression: Arteriovenous malformations right colon no evidence from the imaging studies so far of a colovesical fistula Assessment & Plan A&P Narrative macrobid ok for 3d for urine and if you feel she has pelvic osteo, then iv rocephin 2 gm/day and po doxy 100bid for 6 weeks ok will see again prn Time Spent With Patient Time: Total time spent is greater than 50% in coordination of care (as documented) at patient's floor/unit and/or counseling patient:
[2025-04-06 16:00] VITALS: BP 136/50; PULSE 84; RESP 17; TEMP 36.2; O2SAT 98
[2025-04-07 06:41] LABS: Helicobacter pylori Ag, Stool* NOT DETECTED (NOT DETECTED)
== END 2025-04-06 16:27 | DRG 699 ==
LOC: SERX 17:54 → SERHOLD 18:39 → S3SX 20:12
PROVIDERS: Internal Medicine; Specialist; Admitting Provider Internal Medicine; Emergency Provider Family Medicine; PCP Family Medicine; Visit Provider Student in an Organized Health Care Education/Training Program
PROC: (CPT 43239; principal; 2025-03-31 19:30)
PROC: 0DJD8ZZ Inspection of Lower Intestinal Tract, Via Natural or Artificial Opening Endoscopic (ICD-10-PCS; CPT 45378; principal; 2025-04-03 14:30)
DX: T83.511A Infection and inflammatory reaction due to indwelling urethral catheter, initial encounter (principal); M46.26 Osteomyelitis of vertebra, lumbar region; M46.28 Osteomyelitis of vertebra, sacral and sacrococcygeal region; N82.3 Fistula of vagina to large intestine; Z85.42 Personal history of malignant neoplasm of other parts of uterus; N39.0 Urinary tract infection, site not specified; Z89.611 Acquired absence of right leg above knee; Z90.710 Acquired absence of both cervix and uterus; Z93.3 Colostomy status; L08.9 Local infection of the skin and subcutaneous tissue, unspecified; Y84.6 Urinary catheterization as the cause of abnormal reaction of the patient, or of later complication, without mention of misadventure at the time of the procedure; L98.429 Non-pressure chronic ulcer of back with unspecified severity; E11.69 Type 2 diabetes mellitus with other specified complication; Z79.4 Long term (current) use of insulin; E78.5 Hyperlipidemia, unspecified; D64.89 Other specified anemias; E11.51 Type 2 diabetes mellitus with diabetic peripheral angiopathy without gangrene; E11.40 Type 2 diabetes mellitus with diabetic neuropathy, unspecified; K21.00 Gastro-esophageal reflux disease with esophagitis, without bleeding; K29.70 Gastritis, unspecified, without bleeding; K31.89 Other diseases of stomach and duodenum; K55.20 Angiodysplasia of colon without hemorrhage; Z74.01 Bed confinement status; Z79.891 Long term (current) use of opiate analgesic; Z79.899 Other long term (current) drug therapy; Z85.43 Personal history of malignant neoplasm of ovary; Z87.891 Personal history of nicotine dependence; Z92.3 Personal history of irradiation; Z88.5 Allergy status to narcotic agent; D50.0 Iron deficiency anemia secondary to blood loss (chronic)
CPT/HCPCS: 36415; 71045; 74176; 74177; 74270; 77001; 80053; 81001; 83036; 83605; 83690; 83735; 84100; 84484; 85025; 85610; 85652; 85730; 86140; 87040; 87081; 87086; 87338; 93005; 96361; 96365; 96366; 96367; 96375; 99285; A4649; C1751; C1894; J0131; J0696; J1200; J1642; J1644; J1815; J1885; J2185; J2250; J2405; J2470; J2543; J2765; J3010; J3370; J3475; J3490; J7030; J7050; J7999; Q9963; Q9967; A9270

== ENCOUNTER 2025-05-04 09:02 | Outpatient (RCR) | payer MEDICARE, MEDICAID, SELFPAY ==
--- NOTE | 2025-04-03 10:59 | CHAP ---
Patient was visited by the Spiritual Care Volunteer who prayed silently for them. (Volunteer was in the hospital from 10:30-10:59)
--- NOTE | 2025-05-04 10:18 | CTCFLWUP_ITS ---
[facility] [address] [place], [place] [address] FOLLOW-UP NOTE Date: 05/04/2025 MR#: [id number] Name: MONTY MOORE : 1960 Dx: C54.1 Malignant neoplasm of endometrium Identification. Patient with ROMAN/BSO uterine carcinoma [facility] 2015 with vaginal recurrence 2019 with external beam and brachytherapy along with chemotherapy in [facility] 2021. Also had colostomy due to rectovaginal fistula developed in 2022. Underwent right AKA in [place] as well as amputation of toe on the left and developed sacral decubitus ulcer with suspected osteomyelitis being treated at [facility]. Recently admitted a month ago [facility] for generalized abdominal pain with CT abdomen pelvis 03/28/2025 revealing soft tissue infection in the sacral region destroying the bone. Underwent upper and lower endoscopy, via colostomy, revealing esophagitis and biopsies performed duodenum stomach terminal ileum ascending and descending colon and rectum revealed no malignancy. Patient is here for follow-up. States that she has follow-up with surgeon in [place] as recommended, who did the original ileostomy. Continue with the antibiotics for the osteomyelitis of the sacrum region. With recent biopsies as well as imaging studies no evidence of active cancer. I gave her an appointment for 6 months. Electronically signed by: Arash Meyer M.D. 05/04/2025 10:15 AM
== END 2025-05-19 23:59 | disposition home or self-care (01) ==
LOC: SCTC 09:02
PROVIDERS: PCP Family Medicine; Referring Provider Family Medicine; Visit Provider Radiology Therapeutic Radiology
DX: Z08 Encounter for follow-up examination after completed treatment for malignant neoplasm (principal); Z85.42 Personal history of malignant neoplasm of other parts of uterus; Z92.21 Personal history of antineoplastic chemotherapy; Z90.710 Acquired absence of both cervix and uterus; Z90.722 Acquired absence of ovaries, bilateral
CPT/HCPCS: 99212; G0463

== ENCOUNTER → 2025-05-10 | Outpatient (BNVA) | payer MEDICARE, MEDICAID, SELFPAY | END | disposition home or self-care (01) | PROVIDERS: PCP Hospitalist; Referring Provider Hospitalist; Visit Provider Urology | DX: N31.9 Neuromuscular dysfunction of bladder, unspecified (principal); N30.00 Acute cystitis without hematuria; N30.20 Other chronic cystitis without hematuria; L89.154 Pressure ulcer of sacral region, stage 4; Z99.3 Dependence on wheelchair; D64.9 Anemia, unspecified; M46.28 Osteomyelitis of vertebra, sacral and sacrococcygeal region; C54.1 Malignant neoplasm of endometrium | CPT/HCPCS: 99212; G0463 ==

== ENCOUNTER → 2025-05-12 | Outpatient (CLI) | payer MEDICARE, MEDICAID, SELFPAY ==
[2025-05-12 16:20] LABS: Basophils # (Auto) 0.1 Thou/mm3 (0.0-0.2); Basophils % (Auto) 1 % (0-2.5); Eosinophils # (Auto) 0.6 Thou/mm3 (0.0-0.5); Eosinophils % (Auto) 5 % (0-10); Hematocrit 25.7 % (36.0-46.0); Immature Granulocytes Auto 0.04 Thou/mm3 (0.00-0.00); Lymphocytes # (Auto) 4.2 Thou/mm3 (1.0-4.8); Lymphocytes % (Auto) 34 % (10-50); Mean Corpuscular HGB Conc 34.2 g/dl (31.0-37.0); Mean Corpuscular Hemoglobin 29.2 pg (25.0-35.0); Mean Corpuscular Volume 85 fL (80-100); Monocytes # (Auto) 0.9 Thou/mm3 (0.0-0.8); Monocytes % (Auto) 7 % (0-12); Neutrophils # (Auto) 6.7 Thou/mm3 (1.8-7.7); Neutrophils % (Auto) 53 % (37-80); Nucleated Red Blood Cell # 0.00 Thou/mm3 (0.00-0.00); Nucleated Red Blood Cell % 0 /100 WBC (0); Platelet Count 371 Thou/mm3 (140-440); RDW Standard Deviation 40.9 fL (36.4-46.3); Red Blood Count 3.01 Miln/mm3 (4.00-5.20); White Blood Count 12.5 Thou/mm3 (3.6-11.0)
[2025-05-12 16:22] LABS: Hemoglobin 8.8 g/dL (12.0-16.0)
[2025-05-12 16:24] LABS: Partial Thromboplastin Time 28.1 Seconds (22.0-36.0)
[2025-05-12 16:39] LABS: Alanine Aminotransferase 14 U/L (10-49); Albumin, Serum 3.4 gm/dL (3.4-4.8); Albumin/Globulin Ratio 1.2 (1.2-2.2); Alkaline Phosphatase 90 U/L (46-116); Anion Gap 11 (7-16); Aspartate Amino Transferase 18 U/L (0-34); BUN/Creatinine Ratio 17 Ratio (12-20); Bilirubin,Total < 0.2 mg/dL (0.3-1.2); Blood Urea Nitrogen 10 mg/dL (9-23); Calcium 8.4 mg/dL (8.3-10.6); Calcium (Corrected) 8.9 mg/dL (8.5-10.1); Carbon Dioxide 25.2 mMol/L (20.0-31.0); Chloride 99 mMol/L (98-107); Creatinine (Component) 0.6 mg/dL (0.6-1.3); Globulin 2.9 gm/dL (2.3-3.5); Glucose 80 mg/dL (74-106); Osmolality,Calculated 268 (275-295); Potassium 4.1 mMol/L (3.4-5.1); Sodium 135 mMol/L (136-145); Total Protein 6.3 gm/dL (5.7-8.2); eGFR > 60 See Note
== END | disposition home or self-care (01) ==
LOC: SLDO 15:00
PROVIDERS: PCP Hospitalist; Referring Provider Hospitalist; Visit Provider Hospitalist
DX: M46.28 Osteomyelitis of vertebra, sacral and sacrococcygeal region (principal); M62.81 Muscle weakness (generalized)
CPT/HCPCS: 36415; 80053; 85025; 85730

== ENCOUNTER 2025-08-09 11:19 | Outpatient (CLI) | payer MEDICARE, MEDICAID, SELFPAY ==
[2025-08-08 10:04] LABS: Basophils # (Auto) 0.1 Thou/mm3 (0.0-0.2); Basophils % (Auto) 1 % (0-2.5); Eosinophils # (Auto) 0.5 Thou/mm3 (0.0-0.5); Eosinophils % (Auto) 5 % (0-10); Hematocrit 28.2 % (36.0-46.0); Hemoglobin 9.2 g/dL (12.0-16.0); Immature Granulocytes Auto 0.02 Thou/mm3 (0.00-0.00); Lymphocytes # (Auto) 2.8 Thou/mm3 (1.0-4.8); Lymphocytes % (Auto) 29 % (10-50); Mean Corpuscular HGB Conc 32.6 g/dl (31.0-37.0); Mean Corpuscular Hemoglobin 29.5 pg (25.0-35.0); Mean Corpuscular Volume 90 fL (80-100); Monocytes # (Auto) 0.7 Thou/mm3 (0.0-0.8); Monocytes % (Auto) 8 % (0-12); Neutrophils # (Auto) 5.6 Thou/mm3 (1.8-7.7); Neutrophils % (Auto) 58 % (37-80); Nucleated Red Blood Cell # 0.00 Thou/mm3 (0.00-0.00); Nucleated Red Blood Cell % 0 /100 WBC (0); Platelet Count 353 Thou/mm3 (140-440); RDW Standard Deviation 43.5 fL (36.4-46.3); Red Blood Count 3.12 Miln/mm3 (4.00-5.20); White Blood Count 9.7 Thou/mm3 (3.6-11.0)
[2025-08-08 10:21] LABS: INR 1.0 (0.9-1.3); Partial Thromboplastin Time 29.4 Seconds (22.0-36.0); Prothrombin Time 10.7 Seconds (9.0-12.2)
[2025-08-09 11:37] VITALS: BP 166/67; PULSE 84; RESP 17; TEMP 36.6; O2SAT 100
--- NOTE | 2025-08-09 12:00 | XR_ITS ---
EXAMINATION: Venous access removal tunneled central line Fluoroscopy AP chest 2 views Date and time: August 09, 2025, 1152 hours INDICATIONS: No longer needed for central line IV medication TECHNIQUE AND FINDINGS: Informed consent provided. Timeout performed. Skin prepped over the entrance site of the right internal jugular central line, sterile drape applied maximal sterile barrier technique and hygiene 1% lidocaine administered for local anesthesia Careful dissection around the tunneled central line with successful removal Estimated blood loss 1 cc Second chest film no longer demonstrates a central line IMPRESSION: Successful IR removal tunneled central line Fluoroscopy 0.1-minute radiation dose 1.17 mGy 2 spot fluoroscopic chest films
--- NOTE | 2025-08-09 12:08 | PC.NURSE ---
patient transferred via personal wheelchair with animal caretaker. dressing is clean dry and intact. site is soft, flat, nontender, and no signs of hematoma. hand off report given to Carmen from [facility] telephone. education given to both patient and caregiver. both expressed verbal understanding. patient alert and oriented. GCS of 15.
[2025-08-09 12:21] VITALS: BP 157/54; PULSE 83; PULSE 84; RESP 16; O2SAT 99
[2025-08-09 12:25] VITALS: BP 153/30; PULSE 83; RESP 16; TEMP 36.6; O2SAT 99
[2025-08-09 12:29] VITALS: BP 158/63; PULSE 82; RESP 18; O2SAT 99
[2025-08-09 12:36] VITALS: BP 158/70; PULSE 85; RESP 18; TEMP 36.6; O2SAT 99
--- NOTE | 2025-08-09 12:48 | PC.NURSE ---
per md orders no recovery needed
== END 2025-08-09 13:08 | disposition home or self-care (01) ==
PROVIDERS: PCP Family Medicine; Referring Provider Hospitalist; Visit Provider Radiology Diagnostic Radiology
DX: Z45.2 Encounter for adjustment and management of vascular access device (principal)
CPT/HCPCS: 36590; 36415; 77001; 85025; 85610; 85730; A4649

== ENCOUNTER 2025-09-02 07:26 | Emergency (ER) | payer MEDICARE, MEDICAID, SELFPAY ==
[2025-09-02] VITALS (12 sets, daily range): BP systolic 154–173; BP diastolic 57–84; PULSE 75–84; RESP 16–20; TEMP 36.6–37.1; O2SAT 96–100; BMI 25.9
--- NOTE | 2025-09-02 | XR_ITS ---
MRI abdomen, without contrast. MRCP Date and time of exam: September 02, 2025, 1800 hours INDICATIONS: Abdominal pain beginning 1 month ago, gallstones thickened gallbladder wall on ultrasound gallbladder study today Technique: Multiple axial and coronal images of the abdomen have been obtained with the Siemens 1.5T MRI scanner. Images obtained included T1 weighted transverse images, T2-weighted transverse images, T2-weighted transverse images fat-suppressed, T2 weighted haste fat suppressed transverse images, T1 weighted images, in and out of phase images, T2-weighted coronal images, breath hold, T2 weighted haze coronal images as well as T2 weighted coronal thick slab images, MRCP. Findings: No focal liver lesions Gallstones Gallbladder wall appears normal Common hepatic duct common bile duct 2 to 3 mm no stones No pancreatic edema Spleen is not enlarged No hydronephrosis IMPRESSION: Cholelithiasis, negative for cholecystitis Normal common hepatic common bile duct
--- NOTE | 2025-09-02 07:50 | PC.NURSE ---
PT PLACED ON WAFFLE MATTRESS AT THIS TIME
--- NOTE | 2025-09-02 08:44 | EKG_ITS ---
[facility] Test Date: 2025-09-02 Pat Name: MONTY MOORE Department: Room: - Gender: Female Web Site Manager: : 1960 Requested By: Carmine Robins Order Number: [id number] Reading MD: Carmine Robins Measurements Intervals [place] Rate: 80 P: 38 NJ: 157 QRS: 36 QRSD: 98 T: 58 QT: 370 QTc: 429 Interpretive Statements SINUS RHYTHM Compared to ECG 03/28/2025 09:48:51 No significant changes /store/S0/[id number].pdf
--- NOTE | 2025-09-02 08:44 | XR_ITS ---
EXAMINATION: AP chest single view TECHNIQUE: AP portable semiupright chest single view Date and time: September 02, 2025, 0923 hours, comparison March 28, 2025 INDICATIONS: Coughing chest pain today. FINDINGS: Poor inspiratory effort Minor atelectasis in the lower lung zones. Normal heart size No pneumonia or pulmonary edema Prominent osteopenia IMPRESSION: Poor inspiratory effort chest x-ray
--- NOTE | 2025-09-02 08:48 | XR_ITS ---
Examination: CT abdomen and pelvis without contrast. Coronal 3-D reconstructions. Sagittal 2-D reconstructions. Date and time of exam: September 02, 2025, 0901 hours COMPARISON: April 05, 2025 INDICATIONS: Generalized abdominal pain with nausea today CTDI: vol (mGy): 11.2 DLP: (mGycm): 656 Technique: Axial images of the abdomen have been obtained, 3 mm slice thickness Intravenous contrast material has not been administered. Low dose protocols were performed. One or more of the following dose reduction techniques were used; automated exposure control, adjustment of the mA and/or KV according to patient size, use of iterative reconstruction technique. Findings: Mild enlargement cardiac contour No focal liver or splenic lesions Gallstones, gallbladder wall appears mildly thickened No peripancreatic edema Renal arterial calcifications There is mild wall thickening involving the right pelvicalyceal system and proximal right ureter, no hydronephrosis or ureteral calculi Left ileostomy No bowel obstruction Heavy abdominal aortic calcification Normal appendix No diverticulitis Abnormal rectal wall thickening with perirectal inflammatory change, axial image 214 No pelvic mass Urinary bladder contracted around a Michel catheter marked urinary bladder wall thickening Severe osteopenia IMPRESSION: Gallstones, recommend gallbladder sonography follow-up to exclude gallbladder wall thickening Mild thickening involving the wall of the pelvicalyceal system and proximal right ureter, consider urinary tract infection No bowel obstruction Normal appendix Abnormal rectal wall thickening and inflammatory change, differential would include proctitis, recommend direct inspection of the rectum
[2025-09-02] MEDS: SODIUM CHLORIDE 0.9% 1000 ML 1,000 ML 999 ML IV (09:14)
[2025-09-02 09:27] LABS: Basophils # (Auto) 0.0 Thou/mm3 (0.0-0.2); Basophils % (Auto) 0 % (0-2.5); Eosinophils # (Auto) 0.3 Thou/mm3 (0.0-0.5); Eosinophils % (Auto) 2 % (0-10); Hematocrit 26.1 % (36.0-46.0); Hemoglobin 9.1 g/dL (12.0-16.0); Immature Granulocytes Auto 0.06 Thou/mm3 (0.00-0.00); Lymphocytes # (Auto) 2.1 Thou/mm3 (1.0-4.8); Lymphocytes % (Auto) 14 % (10-50); Mean Corpuscular HGB Conc 34.9 g/dl (31.0-37.0); Mean Corpuscular Hemoglobin 28.7 pg (25.0-35.0); Mean Corpuscular Volume 82 fL (80-100); Monocytes # (Auto) 0.8 Thou/mm3 (0.0-0.8); Monocytes % (Auto) 5 % (0-12); Neutrophils # (Auto) 11.6 Thou/mm3 (1.8-7.7); Neutrophils % (Auto) 78 % (37-80); Nucleated Red Blood Cell # 0.00 Thou/mm3 (0.00-0.00); Nucleated Red Blood Cell % 0 /100 WBC (0); Platelet Count 559 Thou/mm3 (140-440); RDW Standard Deviation 36.7 fL (36.4-46.3); Red Blood Count 3.17 Miln/mm3 (4.00-5.20); White Blood Count 15.0 Thou/mm3 (3.6-11.0)
[2025-09-02 09:43] LABS: Alanine Aminotransferase 17 U/L (10-49); Albumin, Serum 4.1 gm/dL (3.4-4.8); Albumin/Globulin Ratio 1.2 (1.2-2.2); Alkaline Phosphatase 153 U/L (46-116); Anion Gap 9 (7-16); Aspartate Amino Transferase 27 U/L (0-34); BUN/Creatinine Ratio 10 Ratio (12-20); Bilirubin,Total 0.2 mg/dL (0.3-1.2); Blood Urea Nitrogen 7 mg/dL (9-23); Calcium 9.1 mg/dL (8.3-10.6); Calcium (Corrected) 9.1 mg/dL (8.5-10.1); Carbon Dioxide 26.8 mMol/L (20.0-31.0); Chloride 85 mMol/L (98-107); Creatinine (Component) 0.7 mg/dL (0.6-1.3); Estimated Creatinine Clearance 78.0 mL/min (>60); Globulin 3.3 gm/dL (2.3-3.5); Glucose 120 mg/dL (74-106); Osmolality,Calculated 243 (275-295); Potassium 4.1 mMol/L (3.4-5.1); Sodium 121 mMol/L (136-145); Total Protein 7.4 gm/dL (5.7-8.2); Troponin I < 0.002 ng/mL (0.0-0.045); eGFR > 60 See Note
[2025-09-02 09:44] LABS: INR 1.2 (0.9-1.3); Partial Thromboplastin Time 34.3 Seconds (22.0-36.0); Prothrombin Time 12.7 Seconds (9.0-12.2)
--- NOTE | 2025-09-02 11:20 | PC.NURSE ---
PT REQUESTING ADDITIONAL PILLOW TO ELEVATE ELBOW. PILLOW GIVEN AT THIS TIME. CALL LIGHT WITHIN REACH
--- NOTE | 2025-09-02 11:59 | PD.EDABDPN ---
ED Abdominal Pain RME/HPI General Chief Complaint: Abdominal Pain Stated complaint: ABDOMINAL PAIN Time seen by provider: 09/02/25 07:35 Arrival date/time: 09/02/25 07:26 Limitations: no limitations RME / HPI RME / HPI narrative: 65 year old female with history of endometrial carcinoma s/p hysterectomy and bilateral salpingo oophorectomy, s/p chemo and radiation therapy, diabetes, hyperlipidemia, s/p right AKA presents to the ED BIBA from home for evaluation of abdominal and back pain beginning last night and worsening this morning. Pain described as aching burning in sensation that is located most to his upper abdomen, rating 8/10 in severity. Denies taking any medications for pain at home. Denies fevers, chills, chest pain, cough, shortness of breath, vomiting, diarrhea. Related Data Home Medications ?Medication ?Instructions ?Recorded ?Confirmed gabapentin 300 mg capsule 300 mg PO TID 12/26/24 09/08/25 multivitamin with minerals-ferrous 1 tab PO QDAY 12/26/24 09/08/25 sulfate 15 mg iron tablet Diphenhydramine HCL 25 mg PO Q8HR PRN itching 03/28/25 09/08/25 Milk of Magnesia 30 ml PO .every 72 PRN constipation 03/28/25 09/08/25 ergocalciferol (vitamin D2) 1,250 1,250 mcg PO QWEEK 03/28/25 09/08/25 mcg (50,000 unit) capsule ferrous sulfate 325 mg (65 mg 325 mg PO BID 03/28/25 09/08/25 iron) tablet (FeroSul) insulin lispro 100 unit/mL 1 sliding scale dose subcut 03/29/25 09/08/25 subcutaneous solution (Humalog USEASDIRECTD U-100 Insulin) famotidine 20 mg tablet 40 mg PO QDAY Upper abdominal pain 09/08/25 09/08/25 Previous Rx's ?Medication ?Instructions ?Recorded amlodipine 10 mg tablet 10 mg PO QDAY 1 month #30 tabs 09/13/25 ascorbic acid (vitamin C) 250 mg 250 mg PO QDAY 20 days #20 tabs 09/13/25 tablet (Vitamin C) atorvastatin 40 mg tablet 40 mg PO HS 30 days #30 tabs 09/13/25 carvedilol 6.25 mg tablet (Coreg) 6.25 mg PO BID 1 month #60 tabs 09/13/25 insulin glargine 100 unit/mL (3 15 unit (0.15 mL) subcut BID 30 09/13/25 mL) subcutaneous pen (Lantus days #9 mL Solostar U-100 Insulin) methocarbamol 500 mg tablet 500 mg PO BID #20 tabs 09/13/25 metoclopramide HCl 10 mg tablet 10 mg PO Q6H PRN nausea and 09/13/25 (Reglan) vomiting, or indigestion 1 month #120 tabs oxycodone-acetaminophen 5 mg-325 1 tab PO [id number] PRN pain 5 days 09/13/25 mg tablet (Percocet) #20 tabs simethicone 80 mg chewable tablet 80 mg PO [id number] PRN Gas 10 days 09/13/25 #60 tabs vitamin B complex-vitamin C-folic 1 tab PO QDAY 30 days #30 tabs 09/13/25 acid 0.8 mg tablet (Nephro-Jerri) Allergies Allergy/AdvReac Type Severity Reaction Status Date / Time midazolam (From Versed) Allergy Severe Anaphylaxis Verified 09/02/25 07:42 fentanyl AdvReac Mild Numbness Verified 05/10/25 10:45 latex AdvReac Mild RASH Verified 05/10/25 10:45 morphine AdvReac Unknown Verified 05/10/25 10:45 Review of Systems Review of Systems Systems Reviewed: All systems reviewed, normal except as documented Past Medical History Past Medical History CARDIAC: Positive Hypercholesterolemia and Hypertension GASTROINTESTINAL: Positive Gastrointestinal Disorders (colostomy), Colorectal Cancer, Hemorrhoids and Gastroesophageal Reflux Disease GENITOURINARY: Positive Genitourinary Disorders (Michel catheter) MUSCULOSKELETAL: Positive Musculoskeletal Disorders (Right AKA) and Osteomyelitis (sacrum) ENDOCRINE: Positive Diabetes Mellitus Type 2 HEMATOLOGIC: Positive Blood Disorders and Anemia PSYCHO/SOCIAL: Positive Depression and Anxiety OTHER HISTORY: Positive Hospitalization (surgery, osteomylitis), Falls, Radiation Therapy, Chicken Pox, Cancer (Uterine), Colorectal Cancer and Ovarian Cancer Family History FAMILY HISTORY: Positive Family Cardiac Disorders and Family Gastrointestinal Problems Surgical History SURGICAL: Positive Bowel Surgery (colostomy), Amputation (Right AKA) and Hysterectomy Social History SMOKING STATUS: Never smoker SECOND HAND EXPOSURE: No ED Exam General Limitations: Present no limitations General appearance: Present alert and in no apparent distress Head Head exam: Present atraumatic, normocephalic and normal inspection Eye Eye exam: Present normal appearance, PERRL and EOMI ENT ENT exam: Present normal exam, normal oropharynx and mucous membranes moist Neck Neck exam: Present normal inspection, full ROM and trachea midline Chest Chest inspection: Present normal inspection and symmetric chest wall rise Respiratory Respiratory exam: Present normal lung sounds bilaterally Cardiovascular Cardiovascular exam: Present regular rate, normal rhythm and normal heart sounds Abdominal Exam Abdominal exam: Present soft, tenderness (1+ mid epigastric area tenderness, no percussion, no rebound), hyperactive bowel sounds (slightly ) and other (Left upper abd with colostomy draining liquid stool that is green appearing ); Absent rebound Extremities Exam Extremities exam: Present full ROM and other (Left foot and ankle were wrapped with guaze ) Back Exam Back exam: Present normal inspection and full ROM Neurological Exam Neurological exam: Present alert, oriented X3 and CN II-XII intact Psychiatric Psychiatric exam: Present normal affect and normal mood Skin Skin exam: Present warm, dry, intact and pallor Course Quality Measures none Orders Category Date Time Status 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 [employer] 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 NOW Care 09/02/25 08:44 Completed Continuous Pulse Oximetry NOW Care 09/02/25 08:44 Completed EKG (ED ONLY) *Do not use* NOW Care 09/02/25 08:44 Completed Insert IV NOW Care 09/02/25 08:44 Completed MRI Screening NOW Care 09/02/25 14:[address] abdomen pelvis wo con Stat Exams 09/02/25 08:48 Completed EKG (ED Only) Stat Exams 09/02/25 08:44 Draft MR MRCP Stat Exams 09/02/25 Completed US gall bladder Stat Exams 09/02/25 12:19 Completed XR chest 1V portable Stat Exams 09/02/25 08:44 Completed BMP [Basic Metabolic Panel] Stat Lab 09/02/25 20:38 Completed Blood Culture (Lab) Stat Lab 09/02/25 20:34 Completed CBC Stat Lab 09/02/25 09:10 Completed Comprehensive Metabolic Panel Stat Lab 09/02/25 09:10 Completed Creatinine,Random Urine Stat Lab 09/02/25 20:31 Completed K URINE [Potassium,Urine Random] Stat Lab 09/02/25 20:31 Completed Lactate (Lactic Acid) Stat Lab 09/02/25 20:38 Completed Osmolality, Urine* Stat Lab 09/02/25 20:31 Completed Partial Thromboplastin Time Stat Lab 09/02/25 09:10 Completed Prothrombin Time with INR Stat Lab 09/02/25 09:10 Completed SODIUM NA URINE [Sodium,Urine Random] Stat Lab 09/02/25 20:31 Completed Stool for WBCs Stat Lab 09/02/25 12:25 Completed TSH [Thyroid Stimulating Hormone] Stat Lab 09/02/25 20:38 Completed Troponin I Stat Lab 09/02/25 09:10 Completed Diazepam Inj [Valium Inj] Med 09/02/25 17:07 Discontinued 2.5 mg IVP X1 ONE Diazepam Inj [Valium Inj] Med 09/02/25 16:39 Discontinued 5 mg IM X1 ONE Diazepam Inj [Valium Inj] Med 09/02/25 17:00 Discontinued 5 mg IM X1 ONE DiphenhydrAMINE INJ [Benadryl Inj] Med 09/02/25 17:07 Discontinued 25 mg IVP X1 ONE Famotidine Inj [Pepcid Inj] Med 09/02/25 17:07 Discontinued 20 mg IVP X1 ONE Levofloxacin/D5w 500 mg Ivpb [Levaquin Ivpb] Med 09/02/25 20:09 Discontinued 500 mg in 100 ml IV X1 MethylPREDNISolone. [SoluMEDROL Inj] Med 09/02/25 17:07 Discontinued 60 mg IV X1 ONE MethylPREDNISolone. [SoluMEDROL Inj] Med 09/02/25 17:30 Discontinued 60 mg IV X1 ONE Pantoprazole Inj [Protonix Inj] Med 09/02/25 08:50 Discontinued 40 mg IVP X1 ONE Sodium Chloride 0.9% 1000 ml [Ns] 1,000 ml Med 09/02/25 20:00 Discontinued IV 100 mls/hr Sodium Chloride 0.9% 1000 ml [Ns] 1,000 ml Med 09/02/25 08:44 Discontinued IV 999 mls/hr metroNIDAZOLE/NS 500 MG IVPB [Flagyl 500 mg IV] Med 09/02/25 20:10 Discontinued 500 mg in 100 ml IV Q6HR oxyCODONE/APAP 5/325 [Percocet 5/325] Med 09/02/25 08:45 Discontinued 1 tab PO X1 ONE oxyCODONE/APAP 5/325 [Percocet 5/325] Med 09/02/25 14:51 Discontinued 1 tab PO X1 ONE Vital Signs Vital signs: Vital Signs Temperature 97.9 F 11/14/25 07:28 Pulse Rate 78 09/02/25 07:28 Respiratory Rate 18 09/02/25 07:28 Blood Pressure 159/76 H 09/02/25 07:28 Pulse Oximetry (%) 97 09/02/25 07:28 Oxygen Delivery Method Room Air 09/02/25 07:28 Pulse ox is 97% on room air which is adequate. Abdominal Pain MDM MDM Narrative MDM Narrative:: Shavon Boyce am scribing for and in the presence of Dr. Lopez. Patient data External records reviewed:: [facility] previous records and EMS form Clinical information provided by:: patient and EMS Social determinants that could affect healthcare access:: none Patient has the following chronic illnesses:: endometrial carcinoma s/p hysterectomy and bilateral salpingo oophorectomy, s/p chemo and radiation therapy, diabetes, hyperlipidemia, s/p right AKA How is presenting disease/condition affected by chronic disease/condition?: exacerbated by Evaluation data The following diagnostics were reviewed and interpreted by me:: lab results, radiology exam(s) and EKG tracing(s) (EKG @ 09:09am, interpreted by me, normal sinus rhythm, rate 80, no STEMI. ) Lab and/or radiology exams considered but not ordered:: None Interpretation Summary: Ordering Physician: Carmine Lopez MD Date of Service: 09/02/25 Procedure(s): XR chest 1V portable Accession Number(s): [id number] cc: Carmine Lopez MD; Anjum Ro MD~ EXAMINATION: AP chest single view TECHNIQUE: AP portable semiupright chest single view Date and time: September 02, 2025, 0923 hours, comparison March 28, 2025 INDICATIONS: Coughing chest pain today. FINDINGS: Poor inspiratory effort Minor atelectasis in the lower lung zones. Normal heart size No pneumonia or pulmonary edema Prominent osteopenia IMPRESSION: Poor inspiratory effort chest x-ray Dictated By: Anjum Ro MD Signed By: <Electronically signed by Anjum Ro MD in OV> 09/02/25 0952 Ordering Physician: Carmine Lopez MD Date of Service: 09/02/25 Procedure(s): CT abdomen pelvis wo con Accession Number(s): [id number] cc: Carmine Lopez MD; Anjum Ro MD~ Examination: CT abdomen and pelvis without contrast. Coronal 3-D reconstructions. Sagittal 2-D reconstructions. Date and time of exam: September 02, 2025, 0901 hours COMPARISON: April 05, 2025 INDICATIONS: Generalized abdominal pain with nausea today CTDI: vol (mGy): 11.2 DLP: (mGycm): 656 Technique: Axial images of the abdomen have been obtained, 3 mm slice thickness Intravenous contrast material has not been administered. Low dose protocols were performed. One or more of the following dose reduction techniques were used; automated exposure control, adjustment of the mA and/or KV according to patient size, use of iterative reconstruction technique. Findings: Mild enlargement cardiac contour No focal liver or splenic lesions Gallstones, gallbladder wall appears mildly thickened No peripancreatic edema Renal arterial calcifications There is mild wall thickening involving the right pelvicalyceal system and proximal right ureter, no hydronephrosis or ureteral calculi Left ileostomy No bowel obstruction Heavy abdominal aortic calcification Normal appendix No diverticulitis Abnormal rectal wall thickening with perirectal inflammatory change, axial image 214 No pelvic mass Urinary bladder contracted around a Michel catheter marked urinary bladder wall thickening Severe osteopenia IMPRESSION: Gallstones, recommend gallbladder sonography follow-up to exclude gallbladder wall thickening Mild thickening involving the wall of the pelvicalyceal system and proximal right ureter, consider urinary tract infection No bowel obstruction Normal appendix Abnormal rectal wall thickening and inflammatory change, differential would include proctitis, recommend direct inspection of the rectum Dictated By: Anjum Ro MD Signed By: <Electronically signed by Anjum Ro MD in OV> 09/02/25 0956 Ordering Physician: Carmine Lopez MD Date of Service: 09/02/25 Procedure(s): US gall bladder Accession Number(s): [id number] cc: Carmine Lopez MD; Emiliano Rosas MD; Anjum Ro MD~ Examination: Abdomen sonogram, Limited Date and time of exam: September 02, 2025, 1310 hours INDICATIONS: Epigastric pain 1 month, with gallbladder wall thickening on CT examination today. Technique: Real-time garcia scale transabdominal sonographic images of the upper abdomen obtained. Findings: Multiple gallstones Gallbladder wall is thickened 0.6 cm Common bile duct 0.3 cm Pancreatic head 2.0 cm Liver 16.4 cm Normal hepatopetal portal venous flow Patent IVC IMPRESSION: Findings suspicious for acute calculus cholecystitis, consider HIDA scan or MRCP follow-up Dictated By: Anjum Ro MD Signed By: <Electronically signed by Anjum Ro MD in OV> 09/02/25 1419 Medications / Prescriptions Medications or Prescriptions considered but not ordered:: None Medication administrations:: Medication Administration History Discontinued Medications Diazepam (Diazepam Inj 5 Mg/Ml Vial 2 Ml) 5 mg IM X1 ONE Stop: 09/02/25 16:40 Last Admin: 09/02/25 17:03 Dose: Not Given Documented By: GM Non-Admin Reason: Discontinued Diazepam (Diazepam Inj 5 Mg/Ml Vial 2 Ml) 5 mg IM X1 ONE Stop: 09/02/25 17:01 Last Admin: 09/02/25 17:33 Dose: Not Given Documented By: DO Non-Admin Reason: ALTERNATE ROUTE Diazepam (Diazepam Inj 5 Mg/Ml Vial 2 Ml) 2.5 mg IVP X1 ONE Stop: 09/02/25 17:08 Last Admin: 09/02/25 17:44 Dose: 2.5 mg Documented By: DO Diphenhydramine HCl (Diphenhydramine Inj 50 Mg/Ml Vial) 25 mg IVP X1 ONE Stop: 09/02/25 17:08 Last Admin: 09/02/25 17:38 Dose: 25 mg Documented By: DO Famotidine (Famotidine Inj 10 Mg/Ml Vial 2 Ml) 20 mg IVP X1 ONE Stop: 09/02/25 17:08 Last Admin: 09/02/25 17:37 Dose: 20 mg Documented By: Sodium Chloride (Ns) 1,000 mls @ 999 mls/hr IV .Q1H1M ONE Stop: 09/02/25 09:44 Last Infusion: 09/02/25 11:00 Dose: Infused Documented By: Admin: 09/02/25 09:14 Dose: 999 mls/hr Documented By: PETRONA Sodium Chloride (Ns) 1,000 mls @ 100 mls/hr IV .Q10H DEWAYNE Stop: 10/02/25 19:59 Last Admin: 09/02/25 20:05 Dose: 100 mls/hr Documented By: DACIA Metronidazole (Flagyl 500 Mg Iv) 500 mg in 100 mls @ 200 mls/hr IV Q6HR DEWAYNE Stop: 09/09/25 20:09 Last Infusion: 09/02/25 20:50 Dose: Infused Documented By: Admin: 09/02/25 20:18 Dose: 200 mls/hr Documented By: DACIA Levofloxacin/Dextrose (Levaquin Ivpb) 500 mg in 100 mls @ 100 mls/hr IV X1 ONE Stop: 09/02/25 21:08 Last Infusion: 09/02/25 22:12 Dose: Infused Documented By: Infusion: 09/02/25 20:50 Dose: 100 mls/hr Documented By: Infusion: 09/02/25 20:19 Dose: 0 mls/hr Documented By: Admin: 09/02/25 20:19 Dose: 100 mls/hr Documented By: DACIA Methylprednisolone Sodium Succinate (Methylprednisolone Sod 500 Mg/8 Ml Vial) 60 mg IV X1 ONE Stop: 09/02/25 17:08 Last Admin: 09/02/25 17:45 Dose: Not Given Documented By: Non-Admin Reason: Duplicate Medication on eMAR Methylprednisolone Sodium Succinate (Methylprednisolone Sod Succ 40 Mg/Ml Vial) 60 mg IV X1 ONE Stop: 09/02/25 17:31 Last Admin: 09/02/25 17:40 Dose: 60 mg Documented By: DO Oxycodone/Acetaminophen (Oxycodone/Apap 5/325 Tablet) 1 tab PO X1 ONE Stop: 09/02/25 08:46 Last Admin: 09/02/25 09:15 Dose: 1 tab Documented By: GM Oxycodone/Acetaminophen (Oxycodone/Apap 5/325 Tablet) 1 tab PO X1 ONE Stop: 09/02/25 14:52 Last Admin: 09/02/25 14:59 Dose: 1 tab Documented By: GM Pantoprazole Sodium (Pantoprazole Inj 40 Mg Vial) 40 mg IVP X1 ONE Stop: 09/02/25 08:51 Last Admin: 09/02/25 09:15 Dose: 40 mg Documented By: GM See above Consultations Consultation(s) initiated? (list below): No Diagnosis Differential diagnosis abdominal pain: abdominal pain, calculus of kidney, constipation, diverticulitis and other (gastritis ) Most likely diagnosis given after review of the tests above:: n/a Admission Indicated Admission indicated?: not indicated Admission Request Was there a request for admission?: No Disposition Plan Disposition Plan: other (specify) (Patient signed out to another physician pending imaging) Discharge Plan Plan Patient Disposition: HOME (Self Care) Discharge Disposition comment: Stable for discharge home Patient condition on transfer: Stable Prescriptions/Referrals Prescriptions/Med Rec: No Action gabapentin 300 mg capsule 300 mg PO TID [id number] sulfate 15 mg iron tablet 1 tab PO QDAY Diphenhydramine HCL tablet 25 mg PO Q8HR PRN (Reason: itching) ergocalciferol (vitamin D2) 1,250 mcg (50,000 unit) capsule 1,250 mcg PO QWEEK ferrous sulfate [FeroSul] 325 mg (65 mg iron) tablet 325 mg PO BID Milk of Magnesia 30 ml PO .every 72 PRN (Reason: constipation) Rx Instructions: if no bowel movement for 3 consecutive days insulin lispro [Humalog U-100 Insulin] 100 unit/mL solution 1 sliding scale dose subcut USEASDIRECTD famotidine 20 mg tablet 40 mg PO QDAY carvedilol [Coreg] 6.25 mg tablet 6.25 mg PO BID 30 Days Qty: 60 0RF Rx Instructions: must administer with a meal/food amlodipine 10 mg tablet 10 mg PO QDAY 30 Days Qty: 30 0RF metoclopramide HCl [Reglan] 10 mg tablet 10 mg PO Q6H PRN (Reason: nausea and vomiting, or indigestion) 30 Days Qty: 120 0RF atorvastatin 40 mg tablet 40 mg PO HS 30 Days Qty: 30 0RF methocarbamol 500 mg tablet 500 mg PO BID Qty: 20 0RF oxycodone-acetaminophen [Percocet] 5-325 mg tablet 1 tab PO [id number] 4 pills PRN (Reason: pain) 5 Days Qty: 20 0RF ascorbic acid (vitamin C) [Vitamin C] 250 mg tablet 250 mg PO QDAY 20 Days Qty: 20 0RF Nephro-Jerri 0.8 mg tablet 1 tab PO QDAY 30 Days Qty: 30 0RF simethicone 80 mg Tablet,Chewable 80 mg PO [id number] PRN (Reason: Gas) 10 Days Qty: 60 0RF insulin glargine [Lantus Solostar U-100 Insulin] 100 unit/mL (3 mL) insulin pen 15 unit subcut BID 30 Days Qty: 9 0RF Rx Instructions: hold if blood sugar <100 Referrals: Emiliano Rosas MD [Primary Care Provider, Family Practice] - In 1 week Problem List Clinical Impression: Abdominal pain, Chronic wound, Diarrhea Patient/Caregiver Discharge Instructions Discharge Activity: activity as tolerated Education Materials: ED Diarrhea, Unknown Cause, ED Pain, Acute, Uncertain Cause Additional Instructions: Please return to the emergency department if you have any worsening or any further medical problems we will help you. Otherwise you should follow-up with your primary care doctor within the next several days Today all of your tests were basically normal. You do have gallstones but they are in your gallbladder and there is no signs of an infected gallbladder or inflamed gallbladder. The rest of the organs in your abdomen appear to be normal on the CAT scan. Print Language: Maltese Stand Alone Forms: Fide Award Info., Patient Portal Info Letter
--- NOTE | 2025-09-02 12:19 | XR_ITS ---
Examination: Abdomen sonogram, Limited Date and time of exam: September 02, 2025, 1310 hours INDICATIONS: Epigastric pain 1 month, with gallbladder wall thickening on CT examination today. Technique: Real-time garcia scale transabdominal sonographic images of the upper abdomen obtained. Findings: Multiple gallstones Gallbladder wall is thickened 0.6 cm Common bile duct 0.3 cm Pancreatic head 2.0 cm Liver 16.4 cm Normal hepatopetal portal venous flow Patent IVC IMPRESSION: Findings suspicious for acute calculus cholecystitis, consider HIDA scan or MRCP follow-up
[2025-09-02 14:15] LABS: Stool for WBCs Negative (Negative)
[2025-09-02 15:19] LABS: Campylobacter PCR Negative (Negative); Salmonella Species PCR Negative (Negative); Shiga Toxin PCR Negative (Negative); Shigella Species PCR Negative (Negative)
[2025-09-02] MEDS: FAMOTIDINE INJ 10 MG/ML VIAL 2 ML 20 MG IVP (17:37)
--- NOTE | 2025-09-02 17:38 | PC.NURSE ---
PT BROUGHT IN BY EMS WITH C/O EPIGASTRIC/BACK PAIN AND FEELING LIKE HER TONGUE IS SWOLLEN FOR 2 DAYS BUT INCREASED THIS AM. PT IS ABLE TO TALK IN COMPLETE SENTENCES WITH NO ISSUE. NO RESPIRATORY DISTRESS NOTED. PT STATES THAT SHE IS ABLE TO SWALLOW MEDICATIONS. PULSE OX 97% RA. PT PLACED ON CC MONITOR. DR KHAN IN ROOM TO SEE PT
[2025-09-02] MEDS: DIAZEPAM INJ 5 MG/ML VIAL 2 ML 2.5 MG IVP (17:44)
--- NOTE | 2025-09-02 18:32 | PC.NURSE ---
PT BACK FROM MRI
[2025-09-02] MEDS: SODIUM CHLORIDE 0.9% 1000 ML 1,000 ML 100 ML IV (20:05)
[2025-09-02] MEDS: metroNIDAZOLE/NS 500 MG IVPB 500 MG/100 ML BAG 200 MG IV (20:18)
[2025-09-02] MEDS: LEVOFLOXACIN/D5W 500 MG IVPB 500 MG/100 ML BAG 100 MG IV (20:19)
--- NOTE | 2025-09-02 20:28 | PD.EDADDENDU ---
Emergency Room Addendum Addendum Narrative: 20:30 - Care assumed from Dr. Lopez (emergency physician). Past medical, surgical, social and family history reviewed. Vitals and home medications reviewed. Results and treatment plan discussed. They will assume the care of the patient at this time and will follow the patient, pending MRCP. The following addendum documentation note is intended to reflect any pending information, findings, or radiology results not included in the patient?s initial chart by the previous shift scribe. RADIOLOGY Choleangiopancreatography MRI Findings: No focal liver lesions Gallstones Gallbladder wall appears normal Common hepatic duct common bile duct 2 to 3 mm no stones No pancreatic edema Spleen is not enlarged No hydronephrosis IMPRESSION: Cholelithiasis, negative for cholecystitis Normal common hepatic common bile duct 22:45 - Patient has no emergent abnormalities in their studies and can be managed on an outpatient basis. Physical Exam General Limitations: no limitations General appearance: alert and in no apparent distress Abdominal Exam Abdominal exam: Present other (Right AKA, no belly tenderness, left-sided colostomy actively draining liquid)
[2025-09-02 20:44] LABS: Lactate (Lactic Acid) 0.5 mMol/L (0.4-2.0)
[2025-09-02 21:01] LABS: Creatinine,Random Urine 45 mg/dL (30-125); Potassium,Urine Random 14 mMol/L (12-62); Sodium,Urine Random < 15.0 mMol/L (20.0-110.0)
[2025-09-02 21:35] LABS: Anion Gap 12 (7-16); BUN/Creatinine Ratio 12 Ratio (12-20); Blood Urea Nitrogen 7 mg/dL (9-23); Calcium 9.2 mg/dL (8.3-10.6); Carbon Dioxide 21.3 mMol/L (20.0-31.0); Chloride 90 mMol/L (98-107); Creatinine (Component) 0.6 mg/dL (0.6-1.3); Estimated Creatinine Clearance 91.0 mL/min (>60); Glucose 108 mg/dL (74-106); Osmolality,Calculated 246 (275-295); Potassium 4.7 mMol/L (3.4-5.1); Sodium 123 mMol/L (136-145); Thyroid Stimulating Hormone 1.22 uIU/mL (0.55-4.78); eGFR > 60 See Note
[2025-09-03 00:36] VITALS: BP 150/60; PULSE 83; RESP 18; TEMP 37.2; O2SAT 99
--- NOTE | 2025-09-03 00:58 | PC.NURSE ---
2 ATTEMPTS MADE TO CALL [facility]ASS[facility]. NO ANSWER WILL CALL AGAIN IN 1O MIN
[2025-09-09 06:43] LABS: Osmolality, Urine* 197 mOsm/kg (50-1200)
== END 2025-09-03 01:08 | disposition home or self-care (01) ==
PROVIDERS: Family Medicine; Emergency Provider Emergency Medicine; PCP Family Medicine
DX: K80.20 Calculus of gallbladder without cholecystitis without obstruction (principal); E11.9 Type 2 diabetes mellitus without complications; E78.5 Hyperlipidemia, unspecified; G89.29 Other chronic pain; Z79.4 Long term (current) use of insulin
CPT/HCPCS: 36415; 71045; 74176; 74181; 76705; 80048; 80053; 82570; 83605; 83930; 83935; 84133; 84300; 84443; 84484; 85025; 85610; 85730; 87040; 87205; 87505; 93005; 96361; 96365; 96375; 99285; J1200; J1956; J2470; J2919; J3360; J3490; J7030; A9270; J1836

== ENCOUNTER 2025-09-08 11:00 | Inpatient (IN) | payer MEDICARE, MEDICAID, SELFPAY ==
[2025-09-08] VITALS (10 sets, daily range): BP systolic 167–177; BP diastolic 66–91; PULSE 79–103; RESP 16–99; TEMP 36.4–36.8; O2SAT 99–100; BMI 25.9; BMI 25.6
--- NOTE | 2025-09-08 11:05 | PC.NURSE ---
Pt. here from wound clinic, pt. lives at home, pt. crying and yelling that she is in pain to right mid upper abdomen, pt. states she has gallstones and was seen here 6 days ago for the pain from the gallstones, pt. crying stating she was sent home, pt. states she doesn't want to be sent home today. Pt. comes in with a colostomy bag to left lower abdomen, a reid catheter secured to left leg draining to a bag, urine is pale yellow and has white sediment in tubing and in the reid bag. Pt. is being seen at the wound clinic for a wound to her left heel, outside left lower leg, and buttocks. Pt. has dressings intact to her wounds, pt. has a above the knee amputation to her right leg. Pt. had her port removed that was to her left upper chest. Pt. states in the last 6 days the pain has gotten worse.
--- NOTE | 2025-09-08 11:23 | EDNOTE_ITS ---
ED Abdominal Pain RME/HPI General Chief Complaint: Abdominal Pain Stated complaint: ABDOMINAL PAIN Time seen by provider: 09/08/25 11:16 Arrival date/time: 09/08/25 11:00 65-year-old female patient with significant medical history for endometrial carcinoma SP hysterectomy and bilateral salpingo oophorectomy ([facility] 2016), SP radiation and chemotherapy (until 2021), SP ileostomy (rectovaginal fistula in 2022), HLD, PAD SP right AKA and chronic indwelling Michel catheter (since 2022) bedbound chronic left heel ulcer, has been ongoing for more than a year, followed by employment specialist/program manager, came in for evaluation regarding epigastric pain. Patient told me that has been having worsening epigastric pain for se veral weeks, getting worse for the last 6 days, was seen here and was discharged and since then patient's pain is still there and getting worse today. Also complaining of dysuria burning sensation in her urethra. On my initial evaluation patient is moaning and crying due to pain. No vomiting no other complaints. Was seen by employment specialist/program manager today a dressing to the left heel ulcer was done. Related Data Home Medications ?Medication ?Instructions ?Recorded ?Confirmed atorvastatin 40 mg tablet 40 mg PO HS 04/03/22 5 ascorbic acid (vitamin C) 250 mg 250 mg PO QDAY 09/08/25 tablet (Vitamin C) gabapentin 300 mg capsule 300 mg PO TID 12/26/2409/08 methocarbamol 500 mg tablet 500 mg PO BID 12/26/24 multivitamin with minerals-ferrous 1 tab PO QDAY 12/2609/08/25 sulfate 15 mg iron tablet Diphenhydramine HCL 25 mg PO Q8HR PRN itching 09/08/25 Milk of Magnesia 30 ml PO .every 72 PRN const ipation 03/28/25 09/08/25 ergocalciferol (vitamin D2) 1,250 1,250 mcg PO QWEEK 0 03/28/25 09/08/25 mcg (50,000 unit) capsule ferrous sulfate 325 mg (65 mg 325 mg PO BID 03/28/25 1 11/08/24 iron) tablet (FeroSul) insulin glargine 100 unit/mL (3 20 unit subcut BID 07/1409/08/25 mL) subcutaneous pen (Lantus Solostar U-100 Insulin) oxycodone-acetaminophen 5 mg-325 1 tab PO [id number] PRN pain 03/28/25 09/08/25 mg tablet (Percocet) simethicone 80 mg chewable tablet 80 mg PO [id number] PRN Gas 03/28/25 09/08/25 vitamin B complex-vitamin C-folic 1 tab PO QDAY 09/08/25 acid 0.8 mg tablet (Nephro-Jerri) insulin lispro 100 unit/mL 1 sliding scale dose subcut 03/29/25 09/08/25 subcutaneous solution (Humalog USEASDIRECTD U-100 Insulin) famotidine 20 mg tablet 40 mg PO QDAY Upper abdomina l pain 09/08/25 09/08/25 Allergies Allergy/AdvReac Type Severity Reaction Status Date / Time midazolam (From Versed) Allergy Severe Anaphylaxis Verified 09/02/25 07:42 fentanyl AdvReac Mild Numbness Verified 05/10/25 10:45 latex AdvReac Mild RASH Verified 05/10/25 10:45 morphine AdvReac Unknown Verified 05/10/25 10:45 Review of Systems Review of Systems Narrative Review of Systems: Review of system reviewed and within normal limits except mentioned in HPI ED Exam Narrative Physical exam: VITAL SIGNS: Reviewed. GENERAL APPEARANCE: Alert and interactive, follows commands, no acute distress, HEAD AND FACE: Non-traumatic. ENT: PERRL, pink conjunctivitis, eyelid no trauma, Mucous membrane moist. NECK: Supple, nontender, no nuchal rigidity. CHEST: No tenderness, no crepitus, no paradoxical movement, no retractions. LUNGS: Clear, well ventilated, symmetric, no rales, no wheezing, no ronchi, no stridor, good breath sounds bilaterally. HEART: Regular rate, regular rhythm, no murmur, no gallops. ABDOMEN: Soft, positive bowel sounds, nondistended, no guarding, epigastric tenderness, no rebound, no masses, colostomy left intact RECTAL: Deferred. GENITAL: Deferred. NEUROLOGICAL: Gross motor function intact sensory function intact, Appropriate for age. MUSCULOSKELETAL: low back nontender, full range of motion. EXTREMITIES: Status post right AKA, left lower extremity with dressing,, full range of motion. I removed her dressing in her left lower extremity and noticed gangrene to the heel, dry gangrene, no drainage noted SKIN: Color pink, dry, no rash, no lacerations, no abrasions, no contusions. LYMPHATICS: Deferred. Course Quality Measures none Orders Category Date Time Status Admit to Inpatient Status Routine Admission 09/08/25 18:26 Active Patient Condition Routine Admission 09/08/25 18:26 Ordered Bedrest NOW Care 09/08/25 18:38 Active COVID-19 Screening Questionnaire NOW Care 09/08/25 13:[address] Screening NOW Care 09/08/25 15:04 Active Decision to Admit X1 Care 09/08/25 13:47 Completed EKG (ED ONLY) *Do not use* NOW Care 09/08/25 11:27 Completed Fluid restriction QDAY Care 09/08/25 18:40 Active Michel [Urinary Catheter] QS Care 09/08/25 13:42 Active Neuro Check Q4H Care 09/08/25 18:36 Active Notify provider NEEDED Care 09/08/25 18:26 Active Seizure precautions NEEDED Care 09/08/25 18:38 Active Strict Intake and Output Routine Care 09/08/25 18:38 Ordered Consult to Nephrology Stat Cons 09/08/25 18:38 Ordered Diet Cardiac Diet 09/09/[address] abdomen pelvis w con Stat Exams 09/08/25 15:04 Completed EKG (ED Only) Stat Exams 09/08/25 11:27 Ordered US gall bladder Stat Exams 09/08/25 11:29 Completed XR chest 1V Stat Exams 09/08/25 11:26 Completed B-Type Natriuretic Peptide Stat Lab 09/08/25 11:53 Completed Blood Culture (Lab) Routine Lab 09/08/25 20:38 Received CBC AM DRAW Lab 09/09/25 04:30 Completed CBC AM DRAW Lab 09/10/25 05:00 Ordered CBC AM DRAW Lab 09/11/25 05:00 Ordered CBC Stat Lab 09/08/25 11:53 Completed Comprehensive Metabolic Panel AM DRAW Lab 09/09/25 04:30 Completed Comprehensive Metabolic Panel AM DRAW Lab 09/10/25 05:00 Ordered Comprehensive Metabolic Panel AM DRAW Lab 09/11/25 05:00 Ordered Comprehensive Metabolic Panel Stat Lab 09/08/25 11:53 Completed Electrolytes, Urine Random Stat Lab 09/08/25 12:01 Completed Lactate (Lactic Acid) Stat Lab 09/08/25 11:53 Completed Lipase Stat Lab 09/08/25 11:53 Completed Magnesium AM DRAW Lab 09/09/25 04:30 Completed Magnesium AM DRAW Lab 09/10/25 05:00 Ordered Magnesium AM DRAW Lab 09/11/25 05:00 Ordered Magnesium Stat Lab 09/08/25 11:53 Completed Partial Thromboplastin Time Stat Lab 09/08/25 11:53 Completed Phosphorous AM DRAW Lab 09/09/25 04:30 Completed Phosphorous AM DRAW Lab 09/10/25 05:00 Ordered Phosphorous AM DRAW Lab 09/11/25 05:00 Ordered Procalcitonin Stat Lab 09/08/25 11:53 Completed Prothrombin Time with INR Stat Lab 09/08/25 11:53 Completed Renal Function Panel Stat Lab 09/08/25 15:35 Completed Sodium Q4H Lab 09/08/25 18:44 Completed Sodium Q4H Lab 09/08/25 23:14 Completed Troponin I Stat Lab 09/08/25 11:53 Completed Uric Acid Routine Lab 09/08/25 18:44 Completed Urinalysis, C/S if Indicated Stat Lab 09/08/25 12:01 Completed Urine Culture Stat Lab 09/08/25 12:01 Results Acetaminophen Tab [Tylenol Tab] Med 09/08/25 18:40 Active 650 mg PO Q6H PRN Dicyclomine Inj [Bentyl Inj] Med 09/08/25 11:29 Discontinued 10 mg IM X1 ONE DiphenhydrAMINE INJ [Benadryl Inj] Med 09/08/25 11:46 Discontinued 50 mg IVP X1 ONE Famotidine Inj [Pepcid Inj] Med 09/08/25 11:29 Discontinued 20 mg IVP X1 ONE Heparin Inj Med 09/08/25 18:45 Active 5,000 unit SC Q12H Ketorolac Inj [Toradol Inj] Med 09/08/25 11:29 Discontinued 30 mg IVP X1 ONE Lidocaine 2% Viscous [Xylocaine 2% Viscous] Med 09/08/25 18:50 Discontinued 15 ml PO X1 ONE Metoclopramide Inj [Reglan Inj] Med 09/08/25 11:30 Discontinued 10 mg IVP X1 ONE Piper/Tazo 3.375 gm Premix [Zosyn] Med 09/08/25 13:33 Discontinued 3.375 gm in 50 ml IV X1 Piper/Tazo Inj [Zosyn Inj] 4.5 gm Med 09/08/25 18:43 Active Sodium Chloride 0.9% (Pop) [NS 0.9% mini bag] 100 ml IV Q6HR Senna [Senokot] Med 09/08/25 18:40 Active 1 tab PO QDAY PRN Sodium Chloride 0.9% 1000 ml [Ns] 1,000 ml Med 09/08/25 18:45 Discontinued IV 60 mls/hr Sodium Chloride 0.9% 1000 ml [Ns] 1,000 ml Med 09/08/25 18:56 Discontinued IV 70 mls/hr Sodium Chloride 0.9% 1000 ml [Ns] 1,000 ml Med 09/08/25 11:31 Discontinued IV 999 mls/hr mg Hyd/Al Hyd/Ashley Susp [Maalox Susp] Med 09/08/25 18:51 Discontinued 30 ml PO X1 ONE oxyCODONE/APAP 5/325 [Percocet 5/325] Med 09/08/25 18:40 Active 1 tab PO Q6H PRN Code Status Routine Oth 09/08/25 18:26 Ordered Oxygen Delivery PRN RT 09/08/25 18:36 Active Vital Signs Vital signs: Vital Signs Temperature 97.5 F 09/08/25 11:15 Pulse Rate 103 H 09/08/25 11:15 Respiratory Rate 16 09/08/25 11:15 Blood Pressure 171/91 H 09/08/25 11:15 Pulse Oximetry (%) 100 09/08/25 11:15 Abdominal Pain MDM MDM Narrative MDM Narrative:: 65-year-old female patient with significant medical history for endometrial carcinoma SP hysterectomy and bilateral salpingo oophorectomy ([facility] 2016), SP radiation and chemotherapy (until 2021), SP ileostomy (rectovaginal fistula in 2022), HLD, PAD SP right AKA and chronic indwelling Michel catheter (since 2022) bedbound chronic left heel ulcer, has been ongoing for more than a year, followed by employment specialist/program manager, came in for evaluation regarding epigastric pain. Patient told me that has been having worsening epigastric pain for several weeks, getting worse for the last 6 days, was seen here and was discharged and since then patient's pain is still there and getting worse today. Also complaining of dysuria burning sensation in her urethra. On my initial evaluation patient is moaning and crying due to pain. No vomiting no other complaints. Was seen by employment specialist/program manager today a dressing to the left heel ulcer was done. Patient's workup is significant for WBC count of 22.9 neutrophil of 18.5 urinalysis significant for UTI sodium 118 chloride 86 LFTs unremarkable. EKG showed sinus rhythm, ventricular rate of 85 bpm, no ST segment elevation or depression noted. Patient received IV fluids, Bentyl, Benadryl, Pepcid, Toradol, Reglan, Zosyn, Plan of care discussed with the patient, regarding admission. CT scan of the abdomen pelvis showed Cholelithiasis Suspicious for urinary tract infection Mass involving the upper bladder, 38 mm, most consistent with bladder carcinoma, recommend urology consultation and cystoscopy follow-up Abnormal rectal wall, thickened with perirectal density, consider proctitis, recommend colonoscopy follow-up to exclude underlying rectal tumor Case discussed with hospitalist, who admitted the patient. Patient data External records reviewed:: [facility] previous records Clinical information provided by:: patient and EMS Social determinants that could affect healthcare access:: none Patient has the following chronic illnesses:: Hypertension, history of endometrial carcinoma, status post AKA right How is presenting disease/condition affected by chronic disease/condition?: exacerbated by Evaluation data The following diagnostics were reviewed and interpreted by me:: lab results and radiology exam(s) Lab and/or radiology exams considered but not ordered:: None Interpretation Summary: See above Medications / Prescriptions Medications or Prescriptions considered but not ordered:: None Medication administrations:: Medication Administration History Acetaminophen (Acetaminophen 325 Mg Tablet) 650 mg PO Q6H PRN PRN Reason: Fever >100.4 and Pain 1-3 Stop: 10/08/25 18:39 Gabapentin (Gabapentin 300 Mg Capsule) 300 mg PO TID [facility] Stop: 10/09/25 09:44 Last Admin: 09/09/25 10:28 Dose: 300 mg Documented By: CHRIS Heparin Sodium (Porcine) (Heparin Sod Inj 5000 Unit/Ml Vial) 5,000 unit SC Q12H [facility] Stop: 09/22/25 18:44 Last Admin: 09/09/25 05:52 Dose: Not Given Documented By: KAILYN Non-Admin Reason: Patient Refused Comments: pt states she will not take it twice a day only once. Admin: 09/08/25 20:58 Dose: 5,000 unit Documented By: ADELA Co-signed By: Hydralazine HCl (Hydralazine Hcl 10 Mg Tablet) 10 mg PO Q6H PRN PRN Reason: SBP>160 hold if SBP<140 HR>110 Stop: 10/09/25 08:45 Piperacillin Sod/Tazobactam (Sod 4.5 gm/ Sodium Chloride) 100 mls @ 200 mls/hr IV Q6HR [facility]WAY[facility]; Protocol Stop: 09/15/25 18:42 Last Admin: 09/09/25 11:30 Dose: 200 mls/hr Documented By: Infusion: 09/09/25 06:10 Dose: Infused Documented By: Admin: 09/09/25 05:40 Dose: 200 mls/hr Documented By: Admin: 09/08/25 23:54 Dose: Not Given Documented By: KAILYN Non-Admin Reason: per dr piedra Infusion: 09/08/25 21:22 Dose: Infused Documented By: Admin: 09/08/25 20:52 Dose: 200 mls/hr Documented By: ADELA Sodium Chloride (Ns 0.45%) 1,000 mls @ 100 mls/hr IV .Q10H ONE Stop: 09/09/25 18:11 Last Admin: 09/09/25 08:18 Dose: 100 mls/hr Documented By: CHRIS Lisinopril (Lisinopril 2.5 Mg Tablet) 5 mg PO QDAY [facility] Stop: 10/09/25 08:59 Last Admin: 09/09/25 10:28 Dose: 5 mg Documented By: CHRIS Oxycodone/Acetaminophen (Oxycodone/Apap 5/325 Tablet) 1 tab PO Q6H PRN PRN Reason: PAIN SCALE 4-10(Mod-Sev Stop: 09/13/25 18:39 Last Admin: 09/09/25 06:17 Dose: 1 tab Documented By: KAILYN Pantoprazole Sodium (Pantoprazole Inj 40 Mg Vial) 40 mg IVP QDAY [facility] Stop: 10/10/25 08:59 Sennosides (Senna Tablet) 1 tab PO QDAY PRN; Protocol PRN Reason: constipation Stop: 10/08/25 18:39 Sodium Hypochlorite (Sod Hypochlorite 1/4 Str 473 Ml Btl) 473 ml IRRIG HS [facility] Stop: 10/09/25 20:59 Sucralfate (Sucralfate 1 Gm Tablet) 1 gm PO TID [facility] Stop: 10/09/25 13:59 Discontinued Medications Al Hydrox/Mg Hydrox/Simethicone (Mg Hyd/Al Hyd/Ashley (Maalox Reg) Susp 30 Ml Udc) 30 ml PO X1 ONE Stop: 09/08/25 18:52 Last Admin: 09/08/25 20:55 Dose: 30 ml Documented By: AC Al Hydrox/Mg Hydrox/Simethicone (Mg Hyd/Al Hyd/Ashley (Maalox Reg) Susp 30 Ml Udc) 30 ml PO X1 ONE Stop: 09/09/25 09:52 Last Admin: 09/09/25 10:27 Dose: 30 ml Documented By: CHEEM1 Dicyclomine HCl (Dicyclomine Inj 10 Mg/Ml 2ml Vial) 10 mg IM X1 ONE Stop: 09/08/25 11:30 Last Admin: 09/08/25 13:35 Dose: 10 mg Documented By: SR Diphenhydramine HCl (Diphenhydramine Inj 50 Mg/Ml Vial) 50 mg IVP X1 ONE Stop: 09/08/25 11:47 Last Admin: 09/08/25 13:36 Dose: 50 mg Documented By: SR Famotidine (Famotidine Inj 10 Mg/Ml Vial 2 Ml) 20 mg IVP X1 ONE Stop: 09/08/25 11:30 Last Admin: 09/08/25 12:10 Dose: 20 mg Documented By: SR Hydralazine HCl (Hydralazine Hcl 10 Mg Tablet) 10 mg PO X1 ONE Stop: 09/09/25 00:09 Last Admin: 09/09/25 00:34 Dose: 10 mg Documented By: MP Sodium Chloride (Ns) 1,000 mls @ 999 mls/hr IV .Q1H1M ONE Stop: 09/08/25 12:31 Last Infusion: 09/08/25 13:17 Dose: Infused Documented By: Admin: 09/08/25 12:16 Dose: 999 mls/hr Documented By: SR Piperacillin/Tazobactam/Dextrose (Zosyn) 3.375 gm in 50 mls @ 100 mls/hr IV X1 ONE; Protocol Stop: 09/08/25 14:02 Last Infusion: 09/08/25 14:12 Dose: Infused Documented By: Admin: 09/08/25 13:42 Dose: 100 mls/hr Documented By: SR Sodium Chloride (Ns) 1,000 mls @ 60 mls/hr IV .[id number] [facility] Stop: 09/09/25 18:44 Sodium Chloride (Ns) 1,000 mls @ 70 mls/hr IV .[id number] [facility] Stop: 10/08/25 18:55 Last Infusion: 09/09/25 06:04 Dose: 0 mls/hr Documented By: Admin: 09/08/25 22:19 Dose: 70 mls/hr Documented By: MP Dextrose (D5w) 1,000 mls @ 75 mls/hr IV .[id number] [facility] Stop: 10/09/25 06:14 Last Admin: 09/09/25 06:10 Dose: 75 mls/hr Documented By: KAILYN Ketorolac Tromethamine (Ketorolac Inj 30 Mg/Ml Vial) 30 mg IVP X1 ONE Stop: 09/08/25 11:30 Last Admin: 09/08/25 11:52 Dose: 30 mg Documented By: SR Labetalol HCl (Labetalol Inj 5 Mg/Ml Vial 4 Ml) 10 mg IVP X1 ONE Stop: 09/08/25 23:52 Last Admin: 09/09/25 00:16 Dose: Not Given Documented By: MP Non-Admin Reason: per dr kelly, give hydralazine instead. Lidocaine HCl (Lidocaine Viscous 2% 15 Ml Udc) 15 ml PO X1 ONE Stop: 09/08/25 18:51 Last Admin: 09/08/25 20:55 Dose: 15 ml Documented By: ADELA Lidocaine HCl (Lidocaine Viscous 2% 15 Ml Udc) 15 ml PO X1 ONE Stop: 09/09/25 09:52 Last Admin: 09/09/25 11:32 Dose: Not Given Documented By: CHEKIKA Non-Admin Reason: Patient Refused Metoclopramide HCl (Metoclopramide Inj 5 Mg/Ml Vial 2 Ml) 10 mg IVP X1 ONE; Protocol Stop: 09/08/25 11:31 Last Admin: 09/08/25 12:11 Dose: 10 mg Documented By: Pantoprazole Sodium (Pantoprazole Inj 40 Mg Vial) 40 mg IVP X1 ONE Stop: 09/09/25 09:54 Last Admin: 09/09/25 10:27 Dose: 40 mg Documented By: CHRIS Sodium Hypochlorite (Sod Hypochlorite 1/4 Str 473 Ml Btl) 473 ml IRRIG DAILY [facility] Stop: 10/09/25 10:44 Last Admin: 09/09/25 11:33 Dose: Not Given Documented By: CHRIS Non-Admin Reason: Medication Not Available See above Consultations Consultation(s) initiated? (list below): No Diagnosis Differential diagnosis abdominal pain: abdominal pain, constipation and gastroenteritis Most likely diagnosis given after review of the tests above:: Hyponatremia, UTI, abdominal pain, gallstone Admission Indicated Admission indicated?: indicated Admission Request Was there a request for admission?: Yes Admission Attestation Admission request attestation: Discussed case with [Dr. Rosenberg] from Hospitalist service regarding admission. Discussed patients ED course, exam findings, labs, and radiology results. The Hospitalist [agrees, to accept the patient for admission. Disposition Plan Disposition Plan: Admit Discharge Plan Plan Patient Disposition: Admit Acute Care w/in Hospital Problem List Clinical Impression: Gallstone, UTI (urinary tract infection), Acute hyponatremia Patient/Caregiver Discharge Instructions Discharge Activity: activity as tolerated
--- NOTE | 2025-09-08 11:26 | XR_ITS ---
EXAMINATION: AP chest single view TECHNIQUE: AP portable supine chest single view Date and time: September 08, 2025, 1211 hours, comparison September 02, 2025 INDICATIONS: Epigastric pain today. FINDINGS: Normal heart size Lungs are clear. Prominent osteopenia IMPRESSION: No active disease
--- NOTE | 2025-09-08 11:29 | XR_ITS ---
Examination: Abdomen sonogram, Limited Date and time of exam: September 08, 2025, 11:58 a.m. INDICATIONS: Epigastric pain 1 month Technique: Real-time garcia scale transabdominal sonographic images of the upper abdomen obtained. Findings: Multiple gallstones Gallbladder 1.3 cm Common bile duct 0.3 cm Pancreatic head 2.0 cm Liver 13.1 cm no liver lesions Normal hepatopetal portal venous flow Patent IVC IMPRESSION: Cholelithiasis, negative for cholecystitis
[2025-09-08] MEDS: KETOROLAC INJ 30 MG/ML VIAL IVP (11:52)
[2025-09-08 12:09] LABS: Lactate (Lactic Acid) 1.4 mMol/L (0.4-2.0)
[2025-09-08 12:09] LABS: Collection Type, Urine Catheter
[2025-09-08] MEDS: FAMOTIDINE INJ 10 MG/ML VIAL 2 ML 20 MG IVP (12:10)
[2025-09-08] MEDS: METOCLOPRAMIDE INJ 5 MG/ML VIAL 2 ML 10 MG IVP (12:11)
[2025-09-08 12:14] LABS: Basophils # (Auto) 0.1 Thou/mm3 (0.0-0.2); Basophils % (Auto) 0 % (0-2.5); Eosinophils # (Auto) 0.1 Thou/mm3 (0.0-0.5); Eosinophils % (Auto) 1 % (0-10); Hematocrit 29.3 % (36.0-46.0); Hemoglobin 10.0 g/dL (12.0-16.0); Immature Granulocytes Auto 0.17 Thou/mm3 (0.00-0.00); Lymphocytes # (Auto) 3.1 Thou/mm3 (1.0-4.8); Lymphocytes % (Auto) 13 % (10-50); Mean Corpuscular HGB Conc 34.1 g/dl (31.0-37.0); Mean Corpuscular Hemoglobin 28.6 pg (25.0-35.0); Mean Corpuscular Volume 84 fL (80-100); Monocytes # (Auto) 1.0 Thou/mm3 (0.0-0.8); Monocytes % (Auto) 4 % (0-12); Neutrophils # (Auto) 18.5 Thou/mm3 (1.8-7.7); Neutrophils % (Auto) 81 % (37-80); Nucleated Red Blood Cell # 0.00 Thou/mm3 (0.00-0.00); Nucleated Red Blood Cell % 0 /100 WBC (0); Platelet Count 628 Thou/mm3 (140-440); RDW Standard Deviation 37.7 fL (36.4-46.3); Red Blood Count 3.50 Miln/mm3 (4.00-5.20); White Blood Count 22.9 Thou/mm3 (3.6-11.0)
[2025-09-08] MEDS: SODIUM CHLORIDE 0.9% 1000 ML 1,000 ML 999 ML IV (12:16)
[2025-09-08 12:18] LABS: Bacteria,Urine 2+; Bilirubin,Urine Negative (Negative); Blood,Urine 2+ (Negative); Budding Yeast,Urine Present; Color,Urine Yellow (Lt Yel-Yel); Glucose, Urine Negative (Negative); Hyphae Yeast Present; Ketones,Urine 1+ (Negative); Leukocyte Esterase,Urine Positive (Negative); Nitrite,Urine Positive (Negative); PH,Urine 6.0 (5.0-7.0); Protein,Urine 2+ (Neg - Trace); RBC,Urine 142 /hpf (0-3); Specific Gravity,Urine 1.014 (1.001-1.035); Squamous Epithelial Cell,Urine 1 /hpf (0-5); Urobilinogen,Urine Negative mg/dL (0.0-1.0); WBC,Urine 904 /hpf (0-5)
[2025-09-08 12:26] LABS: Clarity,Urine Cloudy (Clear/Hazy); Culture Indicated,Urine Yes
[2025-09-08 12:30] LABS: INR 1.2 (0.9-1.3); Partial Thromboplastin Time 31.7 Seconds (22.0-36.0); Prothrombin Time 12.2 Seconds (9.0-12.2)
--- NOTE | 2025-09-08 12:30 | PC.NURSE ---
US is bedside.
[2025-09-08 12:50] LABS: B-Type Natriuretic Peptide 23 pg/mL (0-100)
--- NOTE | 2025-09-08 12:55 | PC.NURSE ---
empty pt. colostomy bag, cleaned and pt. states thank you. Obtained loose green foul smelling BM.
[2025-09-08 12:59] LABS: Alanine Aminotransferase 13 U/L (10-49); Albumin, Serum 4.3 gm/dL (3.4-4.8); Albumin/Globulin Ratio 1.3 (1.2-2.2); Alkaline Phosphatase 155 U/L (46-116); Anion Gap 9 (7-16); Aspartate Amino Transferase 18 U/L (0-34); BUN/Creatinine Ratio 13 Ratio (12-20); Bilirubin,Total 0.3 mg/dL (0.3-1.2); Blood Urea Nitrogen 8 mg/dL (9-23); Calcium 9.1 mg/dL (8.3-10.6); Calcium (Corrected) 9.1 mg/dL (8.5-10.1); Carbon Dioxide 22.7 mMol/L (20.0-31.0); Chloride 86 mMol/L (98-107); Creatinine (Component) 0.6 mg/dL (0.6-1.3); Estimated Creatinine Clearance 91.0 mL/min (>60); Globulin 3.2 gm/dL (2.3-3.5); Glucose 194 mg/dL (74-106); Lipase 20 U/L (12-53); Magnesium 1.8 mg/dL (1.6-2.6); Osmolality,Calculated 241 (275-295); Potassium 4.6 mMol/L (3.4-5.1); Procalcitonin 0.13 ng/ml (0.0-0.49); Total Protein 7.5 gm/dL (5.7-8.2); Troponin I < 0.020 ng/mL (0.0-0.045); eGFR > 60 See Note
[2025-09-08 13:03] LABS: Sodium 118 mMol/L (136-145)
[2025-09-08] MEDS: DICYCLOMINE INJ 10 MG/ML 2ML VIAL IM (13:35)
[2025-09-08] MEDS: PIPER/TAZO 3.375 GM PREMIX 3.375 GM/50 ML BAG IV (13:42)
--- NOTE | 2025-09-08 14:26 | PC.NURSE ---
Dr. Marrero is bedside talking with pt.
--- NOTE | 2025-09-08 15:04 | XR_ITS ---
Examination: CT abdomen with intravenous contrast CT pelvis with intravenous contrast 2-D coronal reconstructions 2-D sagittal reconstructions Date and time of exam: September 08, 2025, 1621 hours, comparison September 02, 2025 INDICATIONS: Abdominal pain, generalized today. CTDI: vol (mGy) 10.6 DLP: (mGycm) 614 Technique: Multiple axial sections of the abdomen and pelvis have been obtained. 64 slice high-resolution scanner used. 3 mm axial sections have been obtained, post intravenous injection 60 cc [id number] 2-D sagittal, coronal reconstructions obtained. Low dose protocols were performed. One or more of the following dose reduction techniques were used; automated exposure control, adjustment of the mA and/or KV according to patient size, use of iterative reconstruction technique. Findings: No focal liver or splenic lesions Small gallstones No pancreatic mass Spleen not enlarged Mild wall thickening both pelvicalyceal systems and ureters with no ureteral calculi Heavy aortic calcification Normal appendix No bowel obstruction or diverticulitis Mass involving the upper bladder, sagittal image 94, 3.8 cm Rectal wall appears thickened with perirectal density which may represent inflammatory change Urinary Michel catheter Severe osteopenia IMPRESSION: Cholelithiasis Suspicious for urinary tract infection Mass involving the upper bladder, 38 mm, most consistent with bladder carcinoma, recommend urology consultation and cystoscopy follow-up Abnormal rectal wall, thickened with perirectal density, consider proctitis, recommend colonoscopy follow-up to exclude underlying rectal tumor
--- NOTE | 2025-09-08 15:05 | EVENTNT_ITS ---
Documentation for date of: 09/08/25 Event Note Event Note: Ms. Elliott is a 65 y/o female with PMH of endometrial cancer (dx 2017 at [facility]), s/p hysterectomy endometrial carcinoma SP hysterectomy and bilateral salpingo oophorectomy ([facility] 2016), SP radiation and chemotherapy (until 2021), SP ileostomy (rectovaginal fistula in 2022), HLD, PAD SP right AKA (2021), osteomyelitis s/p stage IV sacral ulcer. bedbound, left foot and coccyx pressure ulcers, T2DM who presented with progressively worsening excruciating epigastric pain for at least several weeks. She was recently discharged home from [facility], and she lives at home alone. Has a caregiver that comes to visit her at the house. The pain has prevented her from eating and is vomiting up saliva. Labs significant for UTI, has hx of ESBL UTI (previously grew Ecoli, Proteus, and Pseudomonas) and hyponatremia 118 (120 when corrected for hyperglycemia). Pending admit for CT a/p with contrast. Previous imaging done on 09/02 when patient initially came to ED was without contrast, showed gallstones, mild thickening involving wall of pelvicalyceal system and proximal right ureter, abnormal rectal wall thickening. MRCP showed cholelithiasis without cholecystitis, no CBD dilation. Given patient's extensive cancer history and worsening abdominal pain, will need the contrasted CT. ED to contact IM team enterprise application developer for admission once workup is complete. Plan discussed with Dr. Eric Marrero MD PGY1
--- NOTE | 2025-09-08 15:16 | PC.SS ---
Patient Ni Elliott is a 65-year-old female admitted for Abd Pain. SS conducted bedside contact with the patient to complete initial assessment and to discuss discharge planning. Patient appeared to be alert and oriented to person place and situation. Role and reason explained. Patient confirmed demographic information. Patient identifies her sister Mayra Schmid [phone] as her surrogate decision maker. Pt states she is unable to complete all ADL?s independently, requires gifty lift and max assist. However patient reports once she is in a Wheelchair she is able to due things independently. Patient reports she lives at home alone, however has [facility] providers, Steve and Sarai who go over to her home for 6 hours a day Friday-Friday. Patient reported [facility] machine adjuster leader case trim recently went to the home and informed patient they were going to provide more hours and is in the process. Patient also informed SS that she is also enrolled in another program through [facility] and is also in the process of getting established with hours. Patient was currently residing at [facility] and was recently discharged on 08/20/25. Patient reports her PCP is Dr. Rosas and had a follow up appointment this upcoming FridaySep 12. Patient reports she has alot of support at home by family. SS followed up with patient's sister, Mayra and informed SS that family follows up with patient daily. SS inquired about SNF. Patient is refusing SNF at the time. Pt will need transport and possesses [employer] transport, SS will arrange at the time of DC. No further intervention required at this time, manager social work would be available to address any further concerns. DC Plan: Home Contact: Mayra Schmid [phone] PCP: Emiliano Rosas
[2025-09-08 16:14] LABS: Albumin, Serum 3.7 gm/dL (3.4-4.8); Anion Gap 8 (7-16); BUN/Creatinine Ratio 12 Ratio (12-20); Blood Urea Nitrogen 7 mg/dL (9-23); Calcium 8.3 mg/dL (8.3-10.6); Calcium (Corrected) 8.5 mg/dL (8.5-10.1); Carbon Dioxide 23.6 mMol/L (20.0-31.0); Chloride 89 mMol/L (98-107); Creatinine (Component) 0.6 mg/dL (0.6-1.3); Estimated Creatinine Clearance 91.0 mL/min (>60); Glucose 178 mg/dL (74-106); Osmolality,Calculated 246 (275-295); Phosphorous 3.1 mg/dL (2.4-5.1); Potassium 4.2 mMol/L (3.4-5.1); Sodium 121 mMol/L (136-145); eGFR > 60 See Note
--- NOTE | 2025-09-08 16:15 | PC.NURSE ---
informed Qiana that pt. states they have a very hard time inserting pt.'s reid cath., Qiana states no need to change reid cath at this time.
--- NOTE | 2025-09-08 18:05 | PC.NURSE ---
Dr. Florentino states pt.'s reid needs to be changed before he puts in admission orders, informed him reid will be changed. Dr. Florentino states to call him after reid has been placed at [phone]. Done.
--- NOTE | 2025-09-08 18:53 | ESHP_ITS ---
<Statement entered by Carrillo Florentino MD - 09/10/25 18:14> Patient was seen and examined at bedside. I agree on the assessment and plan on this note as documented by resident Dr Joseline Perez DO PGY1. 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 We will start patient on IV Zosyn as does have history of ESBL UTI in the past Michel exchanged in ER. Patient CT abdomen pelvis shows 38 mm mass likely consistent with bladder carcinoma, patient has underwent TURBT with urology outpatient which revealed nonmalignant lesion is well-established outpatient. Case discussed with attending Dr. Keshav Florentino MD PGY-2 Documentation for date of: 09/08/25 HPI History of Present Illness History of present illness: 65-year-old female patient with significant medical history for endometrial carcinoma SP hysterectomy and bilateral salpingo oophorectomy ([facility] 2016), SP radiation and chemotherapy (until 2021), SP ileostomy (rectovaginal fistula in 2022), HLD, PAD SP right AKA and chronic indwelling Michel catheter (since 2022) bedbound chronic left heel ulcer x 1 year, followed by academic support specialist, presents with epigastric pain and left chest pain radiating to back x 2 months. ?Admitted worsening pain since last admission 09/01, recently ran out of oxycodone 5mg at home. ?Reported improvement on left lower extremity wound with wound nurse. ED: VS: 171/91 HR 103 RR16 Afebrile 100% RA Labs: WBC 22.9 Hgb 10.0 Plt 628 Na 118-121 Cl 86-89 Glucose 194-178 Serum osmolality 246 Alk phos 155 Troponin negative Lactate negative Procal negative UA positive RBC WBC ketones bacteria yeast Pending urine culture Imaging: Chest x-ray negative. ?Gallbladder ultrasound positive cholelithiasis negative cholecystitis. ?CTAP positive upper bladder 38 mm, consistent with bladder carcinoma, recommend urology consult and cystoscopy, abnormal rectal wall, thickened with perirectal density, recommend colonoscopy for underlying rectal tumor. Exam Vital Signs Temp Pulse Resp BP Pulse Ox O2 Del Method 97.8 F 80 19 167/66 H 100 Room Air 09/08/25 18:00 09/08/25 18:00 09/08/25 18:00 09/08/25 18:00 09/08/25 18:00 09/08/25 18:00 Narrative Exam General: No acute distress, well nourished, AAO x4 Eye: PERRL, EOMI, normal conjunctiva, no scleral icterus HENT: Normocephalic, atraumatic, hearing intact to conversation at normal volume, moist oral mucosa Neck: Supple, non-tender, no JVD, no lymphadenopathy Lungs: Non-labored respirations, symmetric chest rise, Clear to auscultate bilaterally, No wheezing, rhonchi, crackles Heart: Peripheral pulses intact bilaterally, Regular Rate and Rhythm. Abdomen: Soft, tender to palpation epigastric, non-distended, no palpable masses Musculoskeletal: Normal range of motion and strength, healed right AKA, LLE wrapped in kerlix, functional right colostomy bag Skin: Skin is warm, dry, no rashes or lesions. Psychiatric: Cooperative, appropriate mood and affect, Awake and alert, not agitated Neuro: Cranial nerves II-XII grossly intact. Strength 5/5 throughout. Sensations intact to light touch. Results: Labs 09/10/25 05:19 09/10/25 12:00 Labs: Short CBC 09/08/25 Range/Units 11:53 WBC 22.9 H D (3.6-11.0) Thou/mm3 Hgb 10.0 L (12.0-16.0) g/dL Hct 29.3 L (36.0-46.0) % Plt Count 628 H D (140-440) Thou/mm3 BMP 09/08/25 09/08/25 11:53 15:35 Sodium 118 L* 121 L Potassium 4.6 4.2 Chloride 86 L 89 L Carbon Dioxide 22.7 23.6 BUN 8 L 7 L Creatinine 0.6 0.6 Glucose 194 H 178 H Calcium 9.1 8.3 Cardiac Enzymes 09/08/25 Range/Units 11:53 Troponin I < 0.020 (0.0-0.045) ng/mL Liver Function 09/08/25 09/08/25 Range/Units 11:53 15:35 Total Bilirubin 0.3 (0.3-1.2) mg/dL AST 18 (0-34) U/L ALT 13 (10-49) U/L Alkaline Phosphatase 155 H (46-116) U/L Albumin 4.3 3.7 D (3.4-4.8) gm/dL Urine 09/08/25 Range/Units 12:01 Urine Color Yellow (Lt Yel-Yel) Urine Clarity Cloudy A (Clear/Hazy) Urine pH 6.0 (5.0-7.0) Ur Specific [place] 1.014 (1.001-1.035) Urine Protein 2+ A (Neg - Trace) Urine Glucose (UA) Negative (Negative) Quality Measures Quality Measures VTE prophylaxis Advance care planning discussed with:: patient Medications Home Medications and Allergies Home Medications ?Medication ?Instructions ?Recorded ?Confirmed ?Type atorvastatin 40 mg tablet 40 mg PO HS 04/03/22 5 History ascorbic acid (vitamin C) 250 mg 250 mg PO QDAY 09/08/25 History tablet (Vitamin C) gabapentin 300 mg capsule 300 mg PO TID 12/26/2409/08 History methocarbamol 500 mg tablet 500 mg PO BID 12/26/24 History multivitamin with minerals-ferrous 1 tab PO QDAY 12/2609/08/25 History sulfate 15 mg iron tablet Diphenhydramine HCL 25 mg PO Q8HR PRN itching 09/08/25 History Milk of Magnesia 30 ml PO .every 72 PRN const ipation 03/28/25 09/08/25 History ergocalciferol (vitamin D2) 1,250 1,250 mcg PO QWEEK 0 03/28/25 09/08/25 History mcg (50,000 unit) capsule ferrous sulfate 325 mg (65 mg 325 mg PO BID 03/28/25 1 11/08/24 History iron) tablet (FeroSul) insulin glargine 100 unit/mL (3 20 unit subcut BID 07/1409/08/25 History mL) subcutaneous pen (Lantus Solostar U-100 Insulin) oxycodone-acetaminophen 5 mg-325 1 tab PO [id number] PRN pain 03/28/25 09/08/25 History mg tablet (Percocet) simethicone 80 mg chewable tablet 80 mg PO [id number] PRN Gas 03/28/25 09/08/25 History vitamin B complex-vitamin C-folic 1 tab PO QDAY 09/08/25 History acid 0.8 mg tablet (Nephro-Jerri) insulin lispro 100 unit/mL 1 sliding scale dose subcut 03/29/25 09/08/25 History subcutaneous solution (Humalog USEASDIRECTD U-100 Insulin) famotidine 20 mg tablet 40 mg PO QDAY Upper abdomina l pain 09/08/25 09/08/25 History Allergies Allergy/AdvReac Type Severity Reaction Status Date / Time midazolam (From Versed) Allergy Severe Anaphylaxis Verified 09/02/25 07:42 fentanyl AdvReac Mild Numbness Verified 05/10/25 10:45 latex AdvReac Mild RASH Verified 05/10/25 10:45 morphine AdvReac Unknown Verified 05/10/25 10:45 Visit Medications Acetaminophen (Acetaminophen 325 Mg Tablet) 650 mg PO Q6H PRN PRN Reason: Fever >100.4 and Pain 1-3 Stop: 10/08/25 18:39 Al Hydrox/Mg Hydrox/Simethicone (Mg Hyd/Al Hyd/Ashley (Maalox Reg) Susp 30 Ml Udc) 30 ml PO X1 ONE Stop: 09/08/25 18:52 Heparin Sodium (Porcine) (Heparin Sod Inj 5000 Unit/Ml Vial) 5,000 unit SC Q12H DEWAYNE Stop: 09/22/25 18:44 Sodium Chloride (Ns) 1,000 mls @ 60 mls/hr IV .[id number] DEWAYNE Stop: 09/09/25 18:44 Piperacillin Sod/Tazobactam (Sod 4.5 gm/ Sodium Chloride) 100 mls @ 200 mls/hr IV Q6HR DEWAYNE; Protocol Stop: 09/15/25 18:42 Lidocaine HCl (Lidocaine Viscous 2% 15 Ml Udc) 15 ml PO X1 ONE Stop: 09/08/25 18:51 Oxycodone/Acetaminophen (Oxycodone/Apap 5/325 Tablet) 1 tab PO Q6H PRN PRN Reason: PAIN SCALE 4-10(Mod-Sev Stop: 09/13/25 18:39 Sennosides (Senna Tablet) 1 tab PO QDAY PRN; Protocol PRN Reason: constipation Stop: 10/08/25 18:39 Discontinued Medications Dicyclomine HCl (Dicyclomine Inj 10 Mg/Ml 2ml Vial) 10 mg IM X1 ONE Stop: 09/08/25 11:30 Last Admin: 09/08/25 13:35 Dose: 10 mg Diphenhydramine HCl (Diphenhydramine Inj 50 Mg/Ml Vial) 50 mg IVP X1 ONE Stop: 09/08/25 11:47 Last Admin: 09/08/25 13:36 Dose: 50 mg Famotidine (Famotidine Inj 10 Mg/Ml Vial 2 Ml) 20 mg IVP X1 ONE Stop: 09/08/25 11:30 Last Admin: 09/08/25 12:10 Dose: 20 mg Sodium Chloride (Ns) 1,000 mls @ 999 mls/hr IV .Q1H1M ONE Stop: 09/08/25 12:31 Last Infusion: 09/08/25 13:17 Dose: Infused Piperacillin/Tazobactam/Dextrose (Zosyn) 3.375 gm in 50 mls @ 100 mls/hr IV X1 ONE; Protocol Stop: 09/08/25 14:02 Last Infusion: 09/08/25 14:12 Dose: Infused Ketorolac Tromethamine (Ketorolac Inj 30 Mg/Ml Vial) 30 mg IVP X1 ONE Stop: 09/08/25 11:30 Last Admin: 09/08/25 11:52 Dose: 30 mg Metoclopramide HCl (Metoclopramide Inj 5 Mg/Ml Vial 2 Ml) 10 mg IVP X1 ONE; Protocol Stop: 09/08/25 11:31 Last Admin: 09/08/25 12:11 Dose: 10 mg Assessment & Plan Plan # Asymptomatic hyperosmolar hypovolemic hyponatremia Patient is AO x 4.? On admission sodium 118, improved to 121 after 1L NS. ?Patient is currently asymptomatic.? Plan: -Fluid restriction -Sodium check Q4H -Start NS 60 cc/h - goal Sodium by tomorrow 122-124 -Neuro check Q4H -Consult nephrology, Dr. Mauro, appreciate recs # Urinary tract infection # Chronic Michel catheter WBC 22.9.? History of ESBL recurrent UTI. 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 ?CTAP showed bladder mass Plan: - Start Zosyn - Consult urology, Dr. Rand, appreciate recs. - Consult nephrology, Dr. Mauro, appreciate recs - Pending urine culture # Abdominal pain History of abdominla pain x 2 months. EKG Troponin negative. Plan: -GI cocktail -Resume home Percocet 5mg # History of endometrial carcinoma # Bladder mass Status post hysterectomy and bilateral salpingo-oophorectomy radiation chemo. CTAP positive upper bladder 38 mm, consistent with bladder carcinoma, recommend urology consult and cystoscopy Plan: - Consult urology, Dr. Rand, appreciate recs. Health Maintenance: Code status: DNR DVT prophylaxis: Heparin GI prophylaxis: Protonix Diet: Cardiac Michel: yes Lines: PIV Supplemental O2: None Disposition: Medr bed Assessment and plan discussed with my attending physician Dr. Rosenberg and Dr. Florentino (PGY-2). Dr. Perez (PGY-1) ? vice president of communications Attending Provider Attestation/Addendum I have seen and examined the patient. I was physically present for the [place] portions of the services provided including history, physical exam, diagnosis, treatment plans and orders. I agree with assessment and plan of care as documented by residents. After examination of the patient and review of the clinical data I feel that this patient needs admission to the hospital for further treatment/evaluation. Even though this this note was carefully revised there may still be minor errors in manager emergency due to voice recognition software. Keshav Rosenberg MD
[2025-09-08 19:27] LABS: Sodium 122 mMol/L (136-145); Uric Acid 3.6 mg/dL (3.1-7.8)
--- NOTE | 2025-09-08 19:35 | PD.NEPHCONS ---
History of Present Illness Data of Consult Consult date: 09/08/25 Requesting Physician: Keshav Rosenberg MD Primary Care Provider: Emiliano Rosas MD Consult Narrative Reason for consult: Hyponatremia History of present illness: Ms. Schmid is a 65-year-old lady with significant past medical history of endometrial carcinoma status post total abdominal hysterectomy and oophorectomy ([facility] 2016), SP radiation and chemotherapy (until 2021), SP colostomy with a dumping syndrome (rectovaginal fistula in 2022),DM, HLD, PAD SP right AKA (2021) and chronic indwelling Michel catheter (since 2022) chronic left heel ulcer x 1 year, followed by virtual reality specialist, bedbound-presents with epigastric pain and left chest pain radiating to back x 2 months. ?Admitted worsening pain since last admission 09/01/2025, recently ran out of oxycodone 5mg at home. Patient also stated she has decubitus wound. Patient also has sacral ulcer with osteomyelitis and 12/2024 . Admits having significant loose stools for the last 2 weeks. Decreased p.o. intake. Medications at home included vitamin C, Lipitor, Benadryl, vitamin D, Pepcid, iron, gabapentin, Lantus, Humalog, methocarbamol, Nephro-Jerri, Percocet, simethicone In the emergency department blood pressure was elevated at 171/91. Labs showed white count 22.9, hemoglobin 10, platelets 628. Coags normal. Sodium 118, potassium 4.6, creatinine 0.6, blood sugar 194, uric acid 3.6, LFTs normal, alk phos 155, troponin normal, albumin 4.3 urinalysis shows significant pyuria stool for white cells negative. Abdominal pelvic CT scan showed mass involving the upper bladder gallbladder ultrasound showed multiple gallstones with no acute cholecystitis. Chest x-ray was negative. Renal consultation requested for hyponatremia. cc:: cc: Keshav Rosenberg MD Review of Systems Review of Systems Narrative Review of Systems: CONSTITUTIONAL: Patient denies any fever, chills. Complaining of fatigue HEENT: Denies any visual disturbances or hearing problems. CARDIOVASCULAR: Patient denies any chest pain, shortness of breath, swelling in the lower extremities. PULMONARY: Patient denies any shortness of breath, cough. GASTROINTESTINAL: Patient has a left sided colostomy GENITOURINARY: Chronic indwelling Michel catheter SKIN: Wounds++ MUSCULOSKELETAL: Gait imbalance, bedbound NEUROLOGICAL: Denies any neurological problems of strokes, seizures or confusion. Denies any memory problems. Past Medical History Past Medical History NEUROLOGIC: Negative Neurological Disorders, Alzheimer's Disease, Brain Tumor, Seizures, Amyotrophic Lateral Sclerosis (ALS/Shiloh Gehrig's) or Berman's Palsy CARDIAC: Positive Cardiac Disorders, Hypercholesterolemia and Hypertension; Negative Myocardial Infarction, Cardiac Arrhythmia, Atrial Fibrillation, Angina, Heart Murmur, Coronary Artery Disease, Atherosclerotic Heart Disease, Peripheral Vascular Disease, Aneurysm, Congestive Heart Failure, Congenital Heart Disease, Valvular Heart Disease, Rheumatic Fever, Cardiomyopathy, Edema, Pericarditis, Cellulitis, Deep Vein Thrombosis or Varicose Veins RESPIRATORY: Negative Respiratory Disorders, Chronic Obstructive Pulmonary Disease (COPD), Asthma, Bronchitis, Emphysema, Pneumonia, Pulmonary Fibrosis, Cystic Fibrosis, Tuberculosis, Pulmonary Embolism, Pulmonary Edema or Sleep Apnea GASTROINTESTINAL: Positive Gastrointestinal Disorders, Colorectal Cancer, Hemorrhoids and Gastroesophageal Reflux Disease; Negative Hepatitis, Cirrhosis, Celiac Disease, Gall Bladder Disease, Gastrointestinal Bleed, Esophageal Varices, Olson's Esophagus, Colitis, Diverticulitis, Diverticulosis, Ulcer, Crohn's Disease, Obstructive Bowel or Hiatal Hernia GENITOURINARY: Negative Genitourinary Disorders, Renal Disease, Kidney Stones, Inguinal Hernia or Dialysis REPRODUCTIVE: Negative Endometriosis, Genital Herpes, Gonorrhea, Pelvic Inflammatory Disease, Previous Pregnancies, Syphilis or Uterine Prolapse MUSCULOSKELETAL: Positive Musculoskeletal Disorders and Osteomyelitis; Negative Muscular Dystrophy, Myasthenia Gravis, Marfan's Syndrome, Arthritis, Rheumatoid Arthritis, Osteoporosis, Gout, Scoliosis, Carpal Tunnel Syndrome, Fibromyalgia, Fractures, Degenerative Joint Disease or Poliovirus ENT: Negative History of ENT Problems, Cataracts, Glaucoma, Blind, Retinal Detachment, Macular Degeneration, Ear Infection, Deafness or Eye Prosthesis ENDOCRINE: Positive Endocrine Disorders and Diabetes Mellitus Type 2; Negative Diabetes Mellitus Type 1, Hypoglycemia, Sonny's Syndrome, Denver's Disease, Hyperthyroidism, Hypothyroidism, Parathyroid Disease, Pituitary Disease, Systemic Lupus Erythematosus, Syndrome of Inappropriate Antidiuretic Hormone (SIADH), Adrenal Disease or Graves' Disease HEMATOLOGIC: Positive Anemia; Negative Blood Disorders, Leukemia, Hemophilia, Thalassemia or Sickle Cell Disease PSYCHO/SOCIAL: Positive Depression and Anxiety; Negative Psychiatric Problems, Schizophrenia, Recreational Drug Use, Self-Mutilation, Attention Deficit Disorder, Attention Deficit Hyperactivity Disorder, Depression or Post Traumatic Stress Disorder OTHER HISTORY: Positive Hospitalization, Falls, Radiation Therapy, Chicken Pox, Cancer, Colorectal Cancer and Ovarian Cancer; Negative Autoimmune Disease, Down Syndrome, Autism, Developmental Delay, Shingles, Blood Transfusions, Blood Transfusion Reaction, Anesthesia Reactions, MRSA, Human Immunodeficiency Virus (HIV), Measles, Rubella (Serbian Measles), Pertussis or Clostridium Difficile Family History FAMILY HISTORY: Positive Family Cardiac Disorders and Family Gastrointestinal Problems; Negative Family Psychiatric Problems, Family Respiratory Disorders, Family Genitourinary Problems, Family Endocrine Disorders, Family Reproductive Disorders, Family Musculoskeletal Disorders, Family Cancer, Family Surgery or Family Anesthesia Reaction Surgical History SURGICAL: Positive Abdominal Surgery (ILEOSTOMY PLACEMENT), Bowel Surgery, Amputation and Hysterectomy; Negative Cardiac Surgery, Valve Replacement, Coronary Stent, Pacemaker, Angiogram, Auto Implanted Cardiovert Defib, Endocrine Surgery, Thyroidectomy, Ear Surgery, Tympanostomy Tube, Eye Surgery, Oral Surgery, Tonsillectomy, Adenoidectomy, Cochlear Implant, Corneal Transplant, Throat Surgery, Tracheostomy, Gastric Bypass Surgery, Gastrostomy, Nephrectomy, Transurethral Resection, Joint Replacement, Open Reduction Internal Fixation, Arthroscopy, Neurologic Surgery, Mastectomy, Lumpectomy, Tubal Ligation, Section or Vasectomy Social History SMOKING STATUS: Never smoker SECOND HAND EXPOSURE: No Meds Home Medications and Allergies Home Medications ?Medication ?Instructions ?Recorded ?Confirmed ?Type atorvastatin 40 mg tablet 40 mg PO HS 04/03/22 09/08/25 History ascorbic acid (vitamin C) 250 mg 250 mg PO QDAY 12/26/24 09/08/25 History tablet (Vitamin C) gabapentin 300 mg capsule 300 mg PO TID 12/26/24 09/08/25 History methocarbamol 500 mg tablet 500 mg PO BID 12/26/24 09/08/25 History multivitamin with minerals-ferrous 1 tab PO QDAY 12/26/24 09/08/25 History sulfate 15 mg iron tablet Diphenhydramine HCL 25 mg PO Q8HR PRN itching 03/28/25 09/08/25 History Milk of Magnesia 30 ml PO .every 72 PRN constipation 03/28/25 09/08/25 History ergocalciferol (vitamin D2) 1,250 1,250 mcg PO QWEEK 03/28/25 09/08/25 History mcg (50,000 unit) capsule ferrous sulfate 325 mg (65 mg 325 mg PO BID 03/28/25 09/08/25 History iron) tablet (FeroSul) insulin glargine 100 unit/mL (3 20 unit subcut BID 03/28/25 09/08/25 History mL) subcutaneous pen (Lantus Solostar U-100 Insulin) oxycodone-acetaminophen 5 mg-325 1 tab PO [id number] PRN pain 03/28/25 09/08/25 History mg tablet (Percocet) simethicone 80 mg chewable tablet 80 mg PO [id number] PRN Gas 03/28/25 09/08/25 History vitamin B complex-vitamin C-folic 1 tab PO QDAY 03/28/25 09/08/25 History acid 0.8 mg tablet (Nephro-Jerri) insulin lispro 100 unit/mL 1 sliding scale dose subcut 03/29/25 09/08/25 History subcutaneous solution (Humalog USEASDIRECTD U-100 Insulin) famotidine 20 mg tablet 40 mg PO QDAY Upper abdominal pain 09/08/25 09/08/25 History Allergies Allergy/AdvReac Type Severity Reaction Status Date / Time midazolam (From Versed) Allergy Severe Anaphylaxis Verified 09/02/25 07:42 fentanyl AdvReac Mild Numbness Verified 05/10/25 10:45 latex AdvReac Mild RASH Verified 05/10/25 10:45 morphine AdvReac Unknown Verified 05/10/25 10:45 Exam Vital Signs Temp Pulse Resp BP Pulse Ox O2 Del Method 36.6 C 80 19 167/66 H 100 Room Air 09/08/25 18:00 09/08/25 18:00 09/08/25 18:00 09/08/25 18:00 09/08/25 18:00 09/08/25 18:00 Narrative Exam GENERAL APPEARANCE: Patient currently seen in er. Patient turned to her right side NECK: Neck supple, no JVD or bruit CARDIOVASCULAR: Heart regular, no murmurs LUNGS/CHEST: Chest clear to auscultation. No rales, rhonchi, wheezing ABDOMEN: Soft, nontender, nondistended. No masses. Normal bowel sounds. ++ Colostomy EXTREMITIES: No edema, clubbing or cyanosis. SKIN: Left heel ulcer and is wrapped MUSCULOSKELETAL: Right AKA NEUROLOGICAL : No neurological deficits Results Labs 09/09/25 04:30 09/09/25 09:00 Labs: Short CBC 09/08/25 Range/Units 11:53 WBC 22.9 H D (3.6-11.0) Thou/mm3 Hgb 10.0 L (12.0-16.0) g/dL Hct 29.3 L (36.0-46.0) % Plt Count 628 H D (140-440) Thou/mm3 BMP 09/08/25 09/08/25 09/08/25 11:53 15:35 18:44 Sodium 118 L* 121 L 122 L Potassium 4.6 4.2 Chloride 86 L 89 L Carbon Dioxide 22.7 23.6 BUN 8 L 7 L Creatinine 0.6 0.6 Glucose 194 H 178 H Calcium 9.1 8.3 Cardiac Enzymes 09/08/25 Range/Units 11:53 Troponin I < 0.020 (0.0-0.045) ng/mL Liver Function 09/08/25 09/08/25 Range/Units 11:53 15:35 Total Bilirubin 0.3 (0.3-1.2) mg/dL AST 18 (0-34) U/L ALT 13 (10-49) U/L Alkaline Phosphatase 155 H (46-116) U/L Albumin 4.3 3.7 D (3.4-4.8) gm/dL Urine 09/08/25 Range/Units 12:01 Urine Color Yellow (Lt Yel-Yel) Urine Clarity Cloudy A (Clear/Hazy) Urine pH 6.0 (5.0-7.0) Ur Specific [place] 1.014 (1.001-1.035) Urine Protein 2+ A (Neg - Trace) Urine Glucose (UA) Negative (Negative) Assessment & Plan Assessment and plan (1) Hyponatremia: Status: Acute Assessment and plan: Hypovolemic hyponatremia. Agree with normal saline. Patient has significant GI losses. Will monitor closely. (2) Diarrhea: Status: Acute Assessment and plan: So far workup for WBC negative. Patient seems to have dumping syndrome. (3) Sacral decubitus ulcer: Status: Acute Assessment and plan: Wound care (4) Lower extremity ulceration: Status: Acute Assessment and plan: Wound care (5) Diabetes: Status: Acute Assessment and plan: 1. Check blood sugars twice daily, log them and bring them back with the next visit. 2. is blood sugars above 400 or less than 80, call M.D. 3. Stay active and physically fit 4. Comply with diet and medications 5. Low carbohydrate diet Was on insulin at home Thank you Keshav for allowing me to participate in the care of Ms. Dan
[2025-09-08 19:46] LABS: Chloride,Urine Random 30.2 mMol/L (55.0-125.0); Potassium,Urine Random 25 mMol/L (12-62); Sodium,Urine Random 17.1 mMol/L (20.0-110.0)
[2025-09-08] MEDS: PIPER/TAZO INJ 4.5 GM in SODIUM CHLORIDE 0.9% (POP) 100 ML IV (20:52)
[2025-09-08] MEDS: LIDOCAINE VISCOUS 2% 15 ML UDC PO (20:55)
[2025-09-08] MEDS: MG HYD/AL HYD/SIME (Maalox Reg) SUSP 30 ML UDC PO (20:55)
[2025-09-08] MEDS: HEPARIN SOD INJ 5000 UNIT/ML VIAL SC (20:58)
[2025-09-08] MEDS: SODIUM CHLORIDE 0.9% 1000 ML 1,000 ML 70 ML IV (22:19)
--- NOTE | 2025-09-08 23:50 | PC.NURSE ---
CALLED DR KUMAR regarding zosyn dose, previous dose was given at 2051 and is ordered every 6hrs, dr piedra states to hold midnight dose and restart at 0600. also notified that pts BP is 179/82 [address] will [address] an order.
[2025-09-09] VITALS (9 sets, daily range): BP systolic 122–179; BP diastolic 57–82; PULSE 77–87; RESP 17–98; TEMP 36.2–37; O2SAT 99–100; BMI 25.7
[2025-09-09 00:09] LABS: Sodium 124 mMol/L (136-145)
--- NOTE | 2025-09-09 00:16 | PC.NURSE ---
dr kelly notified that pt is refusing for nurses to attempt IV access at this time although pt has fluids and antibiotics ordered. Pt states she might let us try again in the morning. Dr states okay and to reattempt in the morning.
[2025-09-09 05:12] LABS: Basophils # (Auto) 0.0 Thou/mm3 (0.0-0.2); Basophils % (Auto) 0 % (0-2.5); Eosinophils # (Auto) 0.3 Thou/mm3 (0.0-0.5); Eosinophils % (Auto) 2 % (0-10); Hematocrit 26.1 % (36.0-46.0); Hemoglobin 8.9 g/dL (12.0-16.0); Immature Granulocytes Auto 0.08 Thou/mm3 (0.00-0.00); Lymphocytes # (Auto) 2.2 Thou/mm3 (1.0-4.8); Lymphocytes % (Auto) 14 % (10-50); Mean Corpuscular HGB Conc 34.1 g/dl (31.0-37.0); Mean Corpuscular Hemoglobin 29.0 pg (25.0-35.0); Mean Corpuscular Volume 85 fL (80-100); Monocytes # (Auto) 1.1 Thou/mm3 (0.0-0.8); Monocytes % (Auto) 7 % (0-12); Neutrophils # (Auto) 12.0 Thou/mm3 (1.8-7.7); Neutrophils % (Auto) 76 % (37-80); Nucleated Red Blood Cell # 0.00 Thou/mm3 (0.00-0.00); Nucleated Red Blood Cell % 0 /100 WBC (0); Platelet Count 495 Thou/mm3 (140-440); RDW Standard Deviation 38.8 fL (36.4-46.3); Red Blood Count 3.07 Miln/mm3 (4.00-5.20); White Blood Count 15.7 Thou/mm3 (3.6-11.0)
[2025-09-09] MEDS: PIPER/TAZO INJ 4.5 GM in SODIUM CHLORIDE 0.9% (POP) 100 ML IV ×4 (05:40→23:31)
[2025-09-09 05:41] LABS: Alanine Aminotransferase 10 U/L (10-49); Albumin, Serum 3.7 gm/dL (3.4-4.8); Albumin/Globulin Ratio 1.3 (1.2-2.2); Alkaline Phosphatase 136 U/L (46-116); Anion Gap 9 (7-16); Aspartate Amino Transferase 16 U/L (0-34); BUN/Creatinine Ratio 9 Ratio (12-20); Bilirubin,Total 0.2 mg/dL (0.3-1.2); Blood Urea Nitrogen 6 mg/dL (9-23); Calcium 8.4 mg/dL (8.3-10.6); Calcium (Corrected) 8.6 mg/dL (8.5-10.1); Carbon Dioxide 23.6 mMol/L (20.0-31.0); Chloride 93 mMol/L (98-107); Creatinine (Component) 0.7 mg/dL (0.6-1.3); Estimated Creatinine Clearance 77.6 mL/min (>60); Globulin 2.8 gm/dL (2.3-3.5); Glucose 150 mg/dL (74-106); Magnesium 1.8 mg/dL (1.6-2.6); Osmolality,Calculated 253 (275-295); Phosphorous 3.4 mg/dL (2.4-5.1); Potassium 4.1 mMol/L (3.4-5.1); Sodium 126 mMol/L (136-145); Total Protein 6.5 gm/dL (5.7-8.2); eGFR > 60 See Note
[2025-09-09] MEDS: DEXTROSE 5%-WATER 1,000 ML 75 ML IV (06:10)
[2025-09-09] MEDS: SODIUM CHLORIDE 0.45 % 1,000 ML 100 ML IV (08:18)
--- NOTE | 2025-09-09 08:50 | ESPR_ITS ---
<Statement entered by Campbell Carranza MD - 09/09/25 17:38> Patient seen and examined at bedside. I discussed and supervised with the learning and development intern physician who took care of this patient. I personally saw and examined the patient. I agree with most of the assessment and plan. Plan of care discussed with attending Dr. Rosenberg. Campbell Carranza MD PGY-2 Documentation for date of: 09/09/25 Subjective Subjective Interval history: Overnight BP up to 167/66, received labetalol 10 mg once, no change. Will start Lisinopril 5mg QD and Hydralazine 10mg PRN. Blood culture 09/08 no growth to date.? Urine culture 09/08 positive gram- negative darío.? Currently on Zosyn. Sodium improved from 118-126. Nephrology, Dr. Mauro, consulted, appreciate recs: Change to ? NS at 100cc/h. Patient is overall same as yesterday. Still complained of pain in epigastric and substernal pain radiating to shoulder. EKG negative. Previous EGD in 03/2025 showed negative H. pylori, esophagitis and gastritis. Will start GI cocktail trial today. Patient concerned for C.diff given watery output from ileostomy bag which seemed more formed and has not changed according to patient. No indication for C. diff testing at this time Exam Vital Signs Temp Pulse Resp BP Pulse Ox O2 Del Method 98.6 F 87 20 162/75 H 99 Room Air 09/09/25 08:00 09/09/25 08:00 09/09/25 08:00 09/09/25 08:00 09/09/25 08:00 09/09/25 08:00 Narrative Exam General: No acute distress, well nourished, AAO x4 Eye: PERRL, EOMI, normal conjunctiva, no scleral icterus HENT: Normocephalic, atraumatic, hearing intact to conversation at normal volume, moist oral mucosa Neck: Supple, non-tender, no JVD, no lymphadenopathy Lungs: Non-labored respirations, symmetric chest rise, Clear to auscultate bilaterally, No wheezing, rhonchi, crackles Heart: Peripheral pulses intact bilaterally, Regular Rate and Rhythm. Abdomen: Soft, tender to palpation epigastric, non-distended, no palpable masses Musculoskeletal: Normal range of motion and strength, healed right AKA, LLE wrapped in kerlix, functional right ileostomy bag Skin: Skin is warm, dry, no rashes or lesions. Psychiatric: Cooperative, appropriate mood and affect, Awake and alert, not agitated Neuro: Cranial nerves II-XII grossly intact. Strength 5/5 throughout. Sensations intact to light touch. Objective Labs 09/09/25 04:30 09/09/25 15:53 Labs: Laboratory Results - last 24 hr 09/08/25 09/08/25 09/08/25 11:53 12:01 15:35 WBC 22.9 H D RBC 3.50 L Hgb 10.0 L Hct 29.3 L MCV 84 MCH 28.6 MCHC 34.1 RDW Std Deviation 37.7 Plt Count 628 H D Neut % (Auto) 81 H Lymph % (Auto) 13 [place] % (Auto) 4 Eos % (Auto) 1 Baso % (Auto) 0 Neut # (Auto) 18.5 H Lymph # (Auto) 3.1 [place] # (Auto) 1.0 H Eos # (Auto) 0.1 Baso # (Auto) 0.1 Immature Gran # (Auto) 0.17 H Absolute Nucleated RBC 0.00 Immature Gran % 1 H Nucleated RBC % 0 PT 12.2 INR 1.2 APTT 31.7 Sodium 118 L* 121 L Potassium 4.6 4.2 Chloride 86 L 89 L Carbon Dioxide 22.7 23.6 Anion Gap 9 8 BUN 8 L 7 L Creatinine 0.6 0.6 Estim Creat Clear Calc 91.0 91.0 eGFR > 60 > 60 BUN/Creatinine Ratio 13 12 Glucose 194 H 178 H Calculated Osmolality 241 L 246 L Lactic Acid 1.4 Uric Acid Calcium 9.1 8.3 Corrected Calcium 9.1 8.5 Phosphorus 3.1 Magnesium 1.8 Total Bilirubin 0.3 AST 18 ALT 13 Alkaline Phosphatase 155 H Troponin I < 0.020 B-Natriuretic Peptide 23 Total Protein 7.5 Albumin 4.3 3.7 D Globulin 3.2 Albumin/Globulin Ratio 1.3 Lipase 20 Procalcitonin 0.13 Ur Collection Type Catheter Urine Color Yellow Urine Clarity Cloudy A Urine pH 6.0 Ur Specific [place] 1.014 Urine Protein 2+ A Urine Glucose (UA) Negative Urine Ketones 1+ A Urine Blood 2+ A Urine Nitrite Positive Urine Bilirubin Negative Urine Urobilinogen (Auto) Negative Ur Leukocyte Esterase Positive Urine RBC 142 H Urine WBC 904 H Ur Squamous Epith Cells 1 Urine Bacteria 2+ A Ur Yeast w Hyphae Present A Urine Yeast (Budding) Present A Ur Culture Indicated? Yes Ur Random Sodium 17.1 L Ur Random Potassium 25 Ur Random Chloride 30.2 L 09/08/25 09/08/25 09/09/25 18:44 23:14 04:30 WBC 15.7 H D RBC 3.07 L Hgb 8.9 L Hct 26.1 L MCV 85 MCH 29.0 MCHC 34.1 RDW Std Deviation 38.8 Plt Count 495 H D Neut % (Auto) 76 Lymph % (Auto) 14 [place] % (Auto) 7 Eos % (Auto) 2 Baso % (Auto) 0 Neut # (Auto) 12.0 H Lymph # (Auto) 2.2 [place] # (Auto) 1.1 H Eos # (Auto) 0.3 Baso # (Auto) 0.0 Immature Gran # (Auto) 0.08 H Absolute Nucleated RBC 0.00 Immature Gran % 1 H Nucleated RBC % 0 PT INR APTT Sodium 122 L 124 L 126 L Potassium 4.1 Chloride 93 L Carbon Dioxide 23.6 Anion Gap 9 BUN 6 L Creatinine 0.7 Estim Creat Clear Calc 77.6 eGFR > 60 BUN/Creatinine Ratio 9 L Glucose 150 H Calculated Osmolality 253 L Lactic Acid Uric Acid 3.6 Calcium 8.4 Corrected Calcium 8.6 Phosphorus 3.4 Magnesium 1.8 Total Bilirubin 0.2 L AST 16 ALT 10 Alkaline Phosphatase 136 H Troponin I B-Natriuretic Peptide Total Protein 6.5 Albumin 3.7 Globulin 2.8 Albumin/Globulin Ratio 1.3 Lipase Procalcitonin Ur Collection Type Urine Color Urine Clarity Urine pH Ur Specific [place] Urine Protein Urine Glucose (UA) Urine Ketones Urine Blood Urine Nitrite Urine Bilirubin Urine Urobilinogen (Auto) Ur Leukocyte Esterase Urine RBC Urine WBC Ur Squamous Epith Cells Urine Bacteria Ur Yeast w Hyphae Urine Yeast (Budding) Ur Culture Indicated? Ur Random Sodium Ur Random Potassium Ur Random Chloride Quality Measures Quality Measures VTE prophylaxis Advance care planning discussed with:: patient Assessment & Plan Assessment Current Active Medications: Generic Name Dose Route Start Last Admin Trade Name Freq PRN Reason Stop Dose Admin Acetaminophen 650 mg 09/08/25 18:40 Acetaminophen 325 Mg Tablet PO 10/08/25 18:39 Q6H PRN Fever >100.4 and Pain 1-3 Heparin Sodium (Porcine) 5,000 unit 09/08/25 18:45 09/09/25 05:52 Heparin Sod Inj 5000 Unit/Ml Vial SC 09/22/25 18:44 Not Given Q12H DEWAYNE Hydralazine HCl 10 mg 09/09/25 08:46 Hydralazine Hcl 10 Mg Tablet PO 10/09/25 08:45 Q6H PRN SBP>160 hold if SBP<140 HR>110 Piperacillin Sod/Tazobactam 100 mls @ 200 mls/hr 09/08/25 18:43 09/09/25 05:40 Sod 4.5 gm/ Sodium Chloride IV 09/15/25 18:42 200 mls/hr Q6HR DEWAYNE Administration Protocol Sodium Chloride 1,000 mls @ 100 mls/hr 09/09/25 08:12 09/09/25 08:18 Ns 0.45% IV 09/09/25 18:11 100 mls/hr .Q10H ONE Administration Lisinopril 5 mg 09/09/25 09:00 Lisinopril 2.5 Mg Tablet PO 10/09/25 08:59 QDAY DEWAYNE Oxycodone/Acetaminophen 1 tab 09/08/25 18:40 09/09/25 06:17 Oxycodone/Apap 5/325 Tablet PO 09/13/25 18:39 1 tab Q6H PRN Administration PAIN SCALE 4-10(Mod-Sev Sennosides 1 tab 09/08/25 18:40 Senna Tablet PO 10/08/25 18:39 QDAY PRN constipation Protocol Plan # Asymptomatic hyperosmolar hypovolemic hyponatremia Patient is AO x 4.? On admission sodium 118, improved to 121 after 1L NS. ?Patient is currently asymptomatic.? 09/09: Sodium improved 121-126 Plan: -Fluid restriction -Sodium check Q4H -Start 1/2 NS 100 cc/h -Neuro check Q4H -Consult nephrology, Dr. Mauro, appreciate recs: Change to ? NS at 100cc/h # Urinary tract infection # Chronic Michel catheter WBC 22.9.? History of ESBL recurrent UTI. 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 ?CTAP showed bladder mass. Blood culture 09/08 no growth to date.? Urine culture 09/08 positive gram- negative darío. ? Plan: - Continue Zosyn - Consult nephrology, Dr. Mauro, appreciate recs - Pending urine culture - Continue to follow up outpatient with Urologist, Dr. Rand # Abdominal pain History of abdominal pain x 2 months. EKG Troponin negative. Previous EGD in 03/2025 showed negative H. pylori, esophagitis and gastritis. Will start GI cocktail trial today. Patient concerned for C.diff given watery output from ileostomy bag which seemed more formed and has not changed according to patient. No indication for C. diff testing at this time Plan: -GI cocktail and sucralfate -Resume home Percocet 5mg # History of endometrial carcinoma # Bladder mass Status post hysterectomy and bilateral salpingo-oophorectomy radiation chemo. CTAP positive upper bladder 38 mm, consistent with bladder carcinoma, recommend urology consult and cystoscopy. Pathology 02/09/25 negative for dysplasia and malignancy. Plan: - Continue to follow up outpatient with Urologist, Dr. Rand #Hypertension No HTN home meds Plan: -Start Lisinopril 5mg QD -Start Hydralazine 10mg Q6H prn Health Maintenance: Code status: DNR DVT prophylaxis: Heparin GI prophylaxis: Protonix Diet: Cardiac Michel: yes Lines: PIV Supplemental O2: None Disposition: Medsurg bed Assessment and plan discussed with my attending physician Dr. Rosenberg and Dr. Carranza (PGY-2). Dr. Perez (PGY-1) ? vice president of business development Attending Provider Attestation/Addendum I have seen and examined the patient. I was physically present for the [place] portions of the services provided including history, physical exam, diagnosis, treatment plans and orders. I agree with assessment and plan of care as documented by residents. Even though this this note was carefully revised there may still be minor errors in windows migration technician due to voice recognition software. Kehsav Rosenberg MD
--- NOTE | 2025-09-09 09:12 | PC.SS ---
Follow up note: Correct sodium. On IV fluids.
[2025-09-09 09:48] LABS: Anion Gap 9 (7-16); BUN/Creatinine Ratio 10 Ratio (12-20); Blood Urea Nitrogen 7 mg/dL (9-23); Calcium 8.0 mg/dL (8.3-10.6); Carbon Dioxide 23.3 mMol/L (20.0-31.0); Chloride 91 mMol/L (98-107); Creatinine (Component) 0.7 mg/dL (0.6-1.3); Estimated Creatinine Clearance 77.6 mL/min (>60); Glucose 303 mg/dL (74-106); Osmolality,Calculated 256 (275-295); Potassium 4.8 mMol/L (3.4-5.1); Sodium 123 mMol/L (136-145); eGFR > 60 See Note
[2025-09-09] MEDS: MG HYD/AL HYD/SIME (Maalox Reg) SUSP 30 ML UDC PO (10:27)
[2025-09-09] MEDS: GABAPENTIN 300 MG CAPSULE PO ×2 (10:28→14:31)
--- NOTE | 2025-09-09 11:24 | PD.NEPHPROG ---
Documentation for date of: 09/09/25 Subjective Subjective Interval history: Ms. 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 ?Admitted worsening pain since last admission 09/01/2025, recently ran out of oxycodone 5mg at home. Patient also stated she has decubitus wound. Patient also has sacral ulcer with osteomyelitis and 12/2024 . Admits having significant loose stools for the last 2 weeks. Decreased p.o. intake. Medications at home included vitamin C, Lipitor, Benadryl, vitamin D, Pepcid, iron, gabapentin, Lantus, Humalog, methocarbamol, Nephro-Jerri, Percocet, simethicone In the emergency department blood pressure was elevated at 171/91. Labs showed white count 22.9, hemoglobin 10, platelets 628. Coags normal. Sodium 118, potassium 4.6, creatinine 0.6, blood sugar 194, uric acid 3.6, LFTs normal, alk phos 155, troponin normal, albumin 4.3 urinalysis shows significant pyuria stool for white cells negative. Abdominal pelvic CT scan showed mass involving the upper bladder gallbladder ultrasound showed multiple gallstones with no acute cholecystitis. Chest x-ray was negative. Renal consultation requested for hyponatremia. 09/09/2025 sodium seems to be better at 126. Patient still having a lot of loose stools from the colostomy. WBC stool negative. Continue with half NS. Review of Systems Review of Systems Narrative Review of Systems: CONSTITUTIONAL: Patient denies any fever, chills. Complaining of fatigue HEENT: Denies any visual disturbances or hearing problems. CARDIOVASCULAR: Patient denies any chest pain, shortness of breath, swelling in the lower extremities. PULMONARY: Patient denies any shortness of breath, cough. GASTROINTESTINAL: Patient has a left sided colostomy GENITOURINARY: Chronic indwelling Michel catheter SKIN: Wounds++ MUSCULOSKELETAL: Gait imbalance, bedbound NEUROLOGICAL: Denies any neurological problems of strokes, seizures or confusion. Denies any memory problems. Exam Vital Signs Temp Pulse Resp BP Pulse Ox O2 Del Method 37.0 C 87 20 162/75 H 99 Room Air 09/09/25 08:00 09/09/25 10:28 09/09/25 08:00 09/09/25 10:28 09/09/25 08:00 09/09/25 08:00 Narrative Exam GENERAL APPEARANCE: Patient currently seen in medical floor. Patient turned to her right side NECK: Neck supple, no JVD or bruit CARDIOVASCULAR: Heart regular, no murmurs LUNGS/CHEST: Chest clear to auscultation. No rales, rhonchi, wheezing ABDOMEN: Soft, nontender, nondistended. No masses. Normal bowel sounds. ++ Colostomy EXTREMITIES: No edema, clubbing or cyanosis. SKIN: Left heel ulcer and is wrapped MUSCULOSKELETAL: Right AKA NEUROLOGICAL : No neurological deficits Objective Labs 09/09/25 04:30 09/09/25 09:00 Labs: Laboratory Results - last 24 hr 09/08/25 09/08/25 09/08/25 11:53 12:01 15:35 WBC 22.9 H D RBC 3.50 L Hgb 10.0 L Hct 29.3 L MCV 84 MCH 28.6 MCHC 34.1 RDW Std Deviation 37.7 Plt Count 628 H D Neut % (Auto) 81 H Lymph % (Auto) 13 [place] % (Auto) 4 Eos % (Auto) 1 Baso % (Auto) 0 Neut # (Auto) 18.5 H Lymph # (Auto) 3.1 [place] # (Auto) 1.0 H Eos # (Auto) 0.1 Baso # (Auto) 0.1 Immature Gran # (Auto) 0.17 H Absolute Nucleated RBC 0.00 Immature Gran % 1 H Nucleated RBC % 0 PT 12.2 INR 1.2 APTT 31.7 Sodium 118 L* 121 L Potassium 4.6 4.2 Chloride 86 L 89 L Carbon Dioxide 22.7 23.6 Anion Gap 9 8 BUN 8 L 7 L Creatinine 0.6 0.6 Estim Creat Clear Calc 91.0 91.0 eGFR > 60 > 60 BUN/Creatinine Ratio 13 12 Glucose 194 H 178 H Calculated Osmolality 241 L 246 L Lactic Acid 1.4 Uric Acid Calcium 9.1 8.3 Corrected Calcium 9.1 8.5 Phosphorus 3.1 Magnesium 1.8 Total Bilirubin 0.3 AST 18 ALT 13 Alkaline Phosphatase 155 H Troponin I < 0.020 B-Natriuretic Peptide 23 Total Protein 7.5 Albumin 4.3 3.7 D Globulin 3.2 Albumin/Globulin Ratio 1.3 Lipase 20 Procalcitonin 0.13 Ur Collection Type Catheter Urine Color Yellow Urine Clarity Cloudy A Urine pH 6.0 Ur Specific [place] 1.014 Urine Protein 2+ A Urine Glucose (UA) Negative Urine Ketones 1+ A Urine Blood 2+ A Urine Nitrite Positive Urine Bilirubin Negative Urine Urobilinogen (Auto) Negative Ur Leukocyte Esterase Positive Urine RBC 142 H Urine WBC 904 H Ur Squamous Epith Cells 1 Urine Bacteria 2+ A Ur Yeast w Hyphae Present A Urine Yeast (Budding) Present A Ur Culture Indicated? Yes Ur Random Sodium 17.1 L Ur Random Potassium 25 Ur Random Chloride 30.2 L 09/08/25 09/08/25 09/09/25 18:44 23:14 04:30 WBC 15.7 H D RBC 3.07 L Hgb 8.9 L Hct 26.1 L MCV 85 MCH 29.0 MCHC 34.1 RDW Std Deviation 38.8 Plt Count 495 H D Neut % (Auto) 76 Lymph % (Auto) 14 [place] % (Auto) 7 Eos % (Auto) 2 Baso % (Auto) 0 Neut # (Auto) 12.0 H Lymph # (Auto) 2.2 [place] # (Auto) 1.1 H Eos # (Auto) 0.3 Baso # (Auto) 0.0 Immature Gran # (Auto) 0.08 H Absolute Nucleated RBC 0.00 Immature Gran % 1 H Nucleated RBC % 0 PT INR APTT Sodium 122 L 124 L 126 L Potassium 4.1 Chloride 93 L Carbon Dioxide 23.6 Anion Gap 9 BUN 6 L Creatinine 0.7 Estim Creat Clear Calc 77.6 eGFR > 60 BUN/Creatinine Ratio 9 L Glucose 150 H Calculated Osmolality 253 L Lactic Acid Uric Acid 3.6 Calcium 8.4 Corrected Calcium 8.6 Phosphorus 3.4 Magnesium 1.8 Total Bilirubin 0.2 L AST 16 ALT 10 Alkaline Phosphatase 136 H Troponin I B-Natriuretic Peptide Total Protein 6.5 Albumin 3.7 Globulin 2.8 Albumin/Globulin Ratio 1.3 Lipase Procalcitonin Ur Collection Type Urine Color Urine Clarity Urine pH Ur Specific [place] Urine Protein Urine Glucose (UA) Urine Ketones Urine Blood Urine Nitrite Urine Bilirubin Urine Urobilinogen (Auto) Ur Leukocyte Esterase Urine RBC Urine WBC Ur Squamous Epith Cells Urine Bacteria Ur Yeast w Hyphae Urine Yeast (Budding) Ur Culture Indicated? Ur Random Sodium Ur Random Potassium Ur Random Chloride 09/09/25 09:00 WBC RBC Hgb Hct MCV MCH MCHC RDW Std Deviation Plt Count Neut % (Auto) Lymph % (Auto) [place] % (Auto) Eos % (Auto) Baso % (Auto) Neut # (Auto) Lymph # (Auto) [place] # (Auto) Eos # (Auto) Baso # (Auto) Immature Gran # (Auto) Absolute Nucleated RBC Immature Gran % Nucleated RBC % PT INR APTT Sodium 123 L Potassium 4.8 D Chloride 91 L Carbon Dioxide 23.3 Anion Gap 9 BUN 7 L Creatinine 0.7 Estim Creat Clear Calc 77.6 eGFR > 60 BUN/Creatinine Ratio 10 L Glucose 303 H D Calculated Osmolality 256 L Lactic Acid Uric Acid Calcium 8.0 L Corrected Calcium Phosphorus Magnesium Total Bilirubin AST ALT Alkaline Phosphatase Troponin I B-Natriuretic Peptide Total Protein Albumin Globulin Albumin/Globulin Ratio Lipase Procalcitonin Ur Collection Type Urine Color Urine Clarity Urine pH Ur Specific [place] Urine Protein Urine Glucose (UA) Urine Ketones Urine Blood Urine Nitrite Urine Bilirubin Urine Urobilinogen (Auto) Ur Leukocyte Esterase Urine RBC Urine WBC Ur Squamous Epith Cells Urine Bacteria Ur Yeast w Hyphae Urine Yeast (Budding) Ur Culture Indicated? Ur Random Sodium Ur Random Potassium Ur Random Chloride Assessment & Plan Assessment and plan (1) Hyponatremia: Status: Acute Assessment and plan: Hypovolemic hyponatremia. Agree with normal saline. Patient has significant GI losses. Will monitor closely. (2) Diarrhea: Status: Acute Assessment and plan: So far workup for WBC negative. Patient seems to have dumping syndrome. (3) Sacral decubitus ulcer: Status: Acute Assessment and plan: Wound care (4) Lower extremity ulceration: Status: Acute Assessment and plan: Wound care (5) Diabetes: Status: Acute Assessment and plan: 1. Check blood sugars twice daily, log them and bring them back with the next visit. 2. is blood sugars above 400 or less than 80, call M.D. 3. Stay active and physically fit 4. Comply with diet and medications 5. Low carbohydrate diet Was on insulin at home Thank you Keshav for allowing me to participate in the care of Ms. Dan Quality - progress note Quality Measures Quality Measures: VTE prophylaxis Reason for Continued Stay Reason for Continued Stay: further monitoring
[2025-09-09] MEDS: SUCRALFATE 1 GM TABLET PO ×2 (14:31→21:08)
--- NOTE | 2025-09-09 15:26 | PC.SS ---
SS met with patient and spoke to her sister, Mayra regarding his d/c plan. Pt is alert/oriented. Pt was admitted for Abdominal Pain. Pt confirmed demographic and contact information is correct on facesheet. Pt resides alone. Sister explained pt transfers into wheelchair with assistance and gifty lift. Pt requires assistance with all ADLs. Pt has 2 caregivers 7 days a week but not 24 hours (hours are divided between them). Patient?s pharmacy of choice is [facility]. Pt named her sister, Marya Schmid medical decision maker if she is unable. Pt explained she was at [facility] from December through August. Patient?s choice is to return home upon d/c and is agreeable to HH. Pt does not have preference for HH Services. Pt followed up with PCP in December. Pt states she had an appointment scheduled with PCP on Friday but cancelled due to being hospitalized. Per sister, she has POA. D/C plan: Return home Next of Kin: Mayra Schmid, sister, phone# [phone] PCP: Dr. Emiliano Rosas from [facility] Address: Correct on facesheet
[2025-09-09 16:25] LABS: Albumin, Serum 3.6 gm/dL (3.4-4.8); Anion Gap 8 (7-16); BUN/Creatinine Ratio 9 Ratio (12-20); Blood Urea Nitrogen 7 mg/dL (9-23); Calcium 8.0 mg/dL (8.3-10.6); Calcium (Corrected) 8.3 mg/dL (8.5-10.1); Carbon Dioxide 24.3 mMol/L (20.0-31.0); Chloride 91 mMol/L (98-107); Creatinine (Component) 0.8 mg/dL (0.6-1.3); Estimated Creatinine Clearance 66.4 mL/min (>60); Glucose 238 mg/dL (74-106); Osmolality,Calculated 253 (275-295); Phosphorous 2.9 mg/dL (2.4-5.1); Potassium 4.3 mMol/L (3.4-5.1); Sodium 123 mMol/L (136-145); eGFR > 60 See Note
[2025-09-09] MEDS: HEPARIN SOD INJ 5000 UNIT/ML VIAL SC (17:05)
[2025-09-09] MEDS: ASCORBIC ACID 250 MG TABLET 500 MG PO (21:08)
[2025-09-09] MEDS: SOD HYPOCHLORITE 1/4 STR 473 ML BTL IRRIG (21:08)
[2025-09-09 23:39] LABS: Sodium 122 mMol/L (136-145)
[2025-09-10] VITALS (8 sets, daily range): BP systolic 117–155; BP diastolic 50–59; PULSE 78–87; RESP 16–99; TEMP 36.4–36.9; O2SAT 97–99
[2025-09-10] MEDS: SODIUM CHLORIDE 0.9% 500 ML 500 ML 75 ML IV (00:53)
[2025-09-10] MEDS: PIPER/TAZO INJ 4.5 GM in SODIUM CHLORIDE 0.9% (POP) 100 ML IV ×4 (05:31→23:21)
[2025-09-10] MEDS: SUCRALFATE 1 GM TABLET PO ×3 (05:31→21:15)
[2025-09-10 06:09] LABS: Basophils # (Auto) 0.0 Thou/mm3 (0.0-0.2); Basophils % (Auto) 0 % (0-2.5); Eosinophils # (Auto) 0.5 Thou/mm3 (0.0-0.5); Eosinophils % (Auto) 4 % (0-10); Hematocrit 22.8 % (36.0-46.0); Immature Granulocytes Auto 0.08 Thou/mm3 (0.00-0.00); Lymphocytes # (Auto) 1.8 Thou/mm3 (1.0-4.8); Lymphocytes % (Auto) 15 % (10-50); Mean Corpuscular HGB Conc 33.3 g/dl (31.0-37.0); Mean Corpuscular Hemoglobin 28.6 pg (25.0-35.0); Mean Corpuscular Volume 86 fL (80-100); Monocytes # (Auto) 1.0 Thou/mm3 (0.0-0.8); Monocytes % (Auto) 8 % (0-12); Neutrophils # (Auto) 9.0 Thou/mm3 (1.8-7.7); Neutrophils % (Auto) 73 % (37-80); Nucleated Red Blood Cell # 0.00 Thou/mm3 (0.00-0.00); Nucleated Red Blood Cell % 0 /100 WBC (0); Platelet Count 429 Thou/mm3 (140-440); RDW Standard Deviation 39.9 fL (36.4-46.3); Red Blood Count 2.66 Miln/mm3 (4.00-5.20); White Blood Count 12.4 Thou/mm3 (3.6-11.0)
[2025-09-10 06:12] LABS: Hemoglobin 7.6 g/dL (12.0-16.0)
[2025-09-10 06:41] LABS: Alanine Aminotransferase 10 U/L (10-49); Albumin, Serum 3.3 gm/dL (3.4-4.8); Albumin/Globulin Ratio 1.2 (1.2-2.2); Alkaline Phosphatase 116 U/L (46-116); Anion Gap 8 (7-16); Aspartate Amino Transferase 13 U/L (0-34); BUN/Creatinine Ratio 9 Ratio (12-20); Bilirubin,Total 0.2 mg/dL (0.3-1.2); Blood Urea Nitrogen 8 mg/dL (9-23); Calcium 7.8 mg/dL (8.3-10.6); Calcium (Corrected) 8.4 mg/dL (8.5-10.1); Carbon Dioxide 22.8 mMol/L (20.0-31.0); Chloride 94 mMol/L (98-107); Creatinine (Component) 0.9 mg/dL (0.6-1.3); Estimated Creatinine Clearance 59.0 mL/min (>60); Globulin 2.7 gm/dL (2.3-3.5); Glucose 183 mg/dL (74-106); Magnesium 1.7 mg/dL (1.6-2.6); Osmolality,Calculated 254 (275-295); Phosphorous 2.9 mg/dL (2.4-5.1); Potassium 4.0 mMol/L (3.4-5.1); Sodium 125 mMol/L (136-145); Total Protein 6.0 gm/dL (5.7-8.2); eGFR > 60 See Note
[2025-09-10 08:10] LABS: Glucose Estimated Average 183 mg/dL (80-131); Hemoglobin A1C 8.0 % Hgb (4.8-6.0)
--- NOTE | 2025-09-10 08:26 | ESPR_ITS ---
<Statement entered by Campbell Carranza MD - 09/10/25 17:54> Patient seen and examined at bedside. I discussed and supervised with the internet network specialist physician who took care of this patient. I personally saw and examined the patient. I agree with most of the assessment and plan. Plan of care discussed with attending Dr. Rosenberg. Campbell Carranza MD PGY-2 Documentation for date of: 09/10/25 Subjective Subjective Interval history: Patient refused viscous lidocaine yesterday.? Only got sucrafte and Protonix with GI cocktail. Patient was getting 500c NS 75cc/hr overnight. Nephrology, Dr. Mauro, consulted, appreciate recs: Significant GI losses, likely due to dumping syndrome.? Continue maintenance NS 100 cc/h. Discontinue cardiac and fluid restrictions. Sodium improved today to 125. Patient still endorsed pain in substernal and epigastric area. Plan to start GI cocktail schedule and check for response. GI, Dr. Lopez, consulted, appreciate recs. Exam Vital Signs Temp Pulse Resp BP Pulse Ox O2 Del Method 98.4 F 87 17 155/59 H 99 Room Air 09/10/25 04:00 09/10/25 04:00 09/10/25 04:00 09/10/25 04:00 09/10/25 04:00 09/10/25 04:00 Narrative Exam General: No acute distress, well nourished, AAO x4 Eye: PERRL, EOMI, normal conjunctiva, no scleral icterus HENT: Normocephalic, atraumatic, hearing intact to conversation at normal volume, moist oral mucosa Neck: Supple, non-tender, no JVD, no lymphadenopathy Lungs: Non-labored respirations, symmetric chest rise, Clear to auscultate bilaterally, No wheezing, rhonchi, crackles Heart: Peripheral pulses intact bilaterally, Regular Rate and Rhythm. Abdomen: Soft, tender to palpation epigastric, non-distended, no palpable masses Musculoskeletal: Normal range of motion and strength, healed right AKA, LLE wrapped in kerlix, functional right ileostomy bag Skin: Skin is warm, dry, no rashes or lesions. Psychiatric: Cooperative, appropriate mood and affect, Awake and alert, not agitated Neuro: Cranial nerves II-XII grossly intact. Strength 5/5 throughout. Sensations intact to light touch. Objective Labs 09/11/25 11:18 09/11/25 11:18 Labs: Laboratory Results - last 24 hr 09/09/25 09/09/25 09/09/25 09:00 15:53 22:52 WBC RBC Hgb Hct MCV MCH MCHC RDW Std Deviation Plt Count Neut % (Auto) Lymph % (Auto) Ocean % (Auto) Eos % (Auto) Baso % (Auto) Neut # (Auto) Lymph # (Auto) Ocean # (Auto) Eos # (Auto) Baso # (Auto) Immature Gran # (Auto) Absolute Nucleated RBC Immature Gran % Nucleated RBC % Sodium 123 L 123 L 122 L Potassium 4.8 D 4.3 D Chloride 91 L 91 L Carbon Dioxide 23.3 24.3 Anion Gap 9 8 BUN 7 L 7 L Creatinine 0.7 0.8 Estim Creat Clear Calc 77.6 66.4 eGFR > 60 > 60 BUN/Creatinine Ratio 10 L 9 L Glucose 303 H D [address] Glu mg/dL Hemoglobin A1c Calculated Osmolality 256 L 253 L Calcium 8.0 L 8.0 L Corrected Calcium 8.3 L Phosphorus 2.9 Magnesium Total Bilirubin AST ALT Alkaline Phosphatase Total Protein Albumin 3.6 Globulin Albumin/Globulin Ratio 09/10/25 05:19 WBC 12.4 H RBC 2.66 L Hgb 7.6 L Hct 22.8 L MCV 86 MCH 28.6 MCHC 33.3 RDW Std Deviation 39.9 Plt Count 429 D Neut % (Auto) 73 Lymph % (Auto) 15 Ocean % (Auto) 8 Eos % (Auto) 4 Baso % (Auto) 0 Neut # (Auto) 9.0 H Lymph # (Auto) 1.8 Ocean # (Auto) 1.0 H Eos # (Auto) 0.5 Baso # (Auto) 0.0 Immature Gran # (Auto) 0.08 H Absolute Nucleated RBC 0.00 Immature Gran % 1 H Nucleated RBC % 0 Sodium 125 L Potassium 4.0 Chloride 94 L Carbon Dioxide 22.8 Anion Gap 8 BUN 8 L Creatinine 0.9 Estim Creat Clear Calc 59.0 L eGFR > 60 BUN/Creatinine Ratio 9 L Glucose [address] Glu mg/dL 183 H Hemoglobin A1c 8.0 H Calculated Osmolality 254 L Calcium 7.8 L Corrected Calcium 8.4 L Phosphorus 2.9 Magnesium 1.7 Total Bilirubin 0.2 L AST 13 ALT 10 Alkaline Phosphatase 116 D Total Protein 6.0 Albumin 3.3 L Globulin 2.7 Albumin/Globulin Ratio 1.2 Quality Measures Quality Measures VTE prophylaxis Advance care planning discussed with:: patient Assessment & Plan Assessment Current Active Medications: Generic Name Dose Route Start Last Admin Trade Name Freq PRN Reason Stop Dose Admin Acetaminophen 650 mg 09/08/25 18:40 Acetaminophen 325 Mg Tablet PO 10/08/25 18:39 Q6H PRN Fever >100.4 and Pain 1-3 Al Hydrox/Mg Hydrox/Simethicone 30 ml 09/09/25 16:08 Mg Hyd/Al Hyd/Ashley (Maalox Reg) Susp 30 Ml Udc PO 10/09/25 16:07 Q6H PRN UPSET STOMACH/INDIGESTION Ascorbic Acid 500 mg 09/09/25 21:00 09/09/25 21:08 Ascorbic Acid 250 Mg Tablet PO 10/09/25 20:59 500 mg BID DEWAYNE Administration Dextrose 25 ml 09/10/25 07:37 Dextrose 50%-Water Inj 50 Ml Syringe IV 10/10/25 07:36 Q15MIN PRN BG 50-70 responsive npo pt Dextrose 50 ml 09/10/25 07:37 Dextrose 50%-Water Inj 50 Ml Syringe IV 10/10/25 07:36 Q15MIN PRN BG <50 OR BG <70 & pt unresponsive Gabapentin 300 mg 09/09/25 09:45 09/10/25 05:41 Gabapentin 300 Mg Capsule PO 10/09/25 09:44 Not Given TID DEWAYNE Glucagon 1 mg 09/10/25 07:37 Glucagon Inj 1 Mg Vial IM Q15MIN PRN BG <70, and no IV access Heparin Sodium (Porcine) 5,000 unit 09/08/25 18:45 09/10/25 07:52 Heparin Sod Inj 5000 Unit/Ml Vial SC 09/22/25 18:44 Not Given Q12H DEWAYNE Hydralazine HCl 10 mg 09/09/25 08:46 Hydralazine Hcl 10 Mg Tablet PO 10/09/25 08:45 Q6H PRN SBP>160 hold if SBP<140 HR>110 Piperacillin Sod/Tazobactam 100 mls @ 200 mls/hr 09/08/25 18:43 09/10/25 05:31 Sod 4.5 gm/ Sodium Chloride IV 09/15/25 18:42 200 mls/hr Q6HR DEWAYNE Administration Protocol Sodium Chloride 1,000 mls @ 80 mls/hr 09/10/25 08:19 Ns IV 09/10/25 20:48 .[id number] DEWAYNE Insulin Degludec 20 unit 09/10/25 09:00 Insulin Degludec 5 Unit/0.05 Ml (Per 5 Units) SC 10/10/25 08:59 QDAY DEWAYNE Insulin Human Lispro 0 unit 09/10/25 11:30 Insulin Lispro (Admelog) 1 Unit/0.01 Ml Unit SC 10/10/25 11:29 AC [facility] Protocol Lidocaine HCl 15 ml 09/09/25 16:08 Lidocaine Viscous 2% 15 Ml Udc PO 10/09/25 16:07 Q3HR PRN LOCAL ANESTHESIA Lisinopril 5 mg 09/09/25 09:00 09/09/25 10:28 Lisinopril 2.5 Mg Tablet PO 10/09/25 08:59 5 mg QDAY DEWAYNE Administration Multivitamins 1 tab 09/10/25 09:00 Multivitamins Tablet PO 10/10/25 08:59 QDAY DEWAYNE Oxycodone/Acetaminophen 1 tab 09/08/25 18:40 09/10/25 05:39 Oxycodone/Apap 5/325 Tablet PO 09/13/25 18:39 1 tab Q6H PRN Administration PAIN SCALE 4-10(Mod-Sev Pantoprazole Sodium 40 mg 09/10/25 09:00 Pantoprazole Inj 40 Mg Vial IVP 10/10/25 08:59 QDAY DEWAYNE Sennosides 1 tab 09/08/25 18:40 Senna Tablet PO 10/08/25 18:39 QDAY PRN constipation Protocol Sodium Hypochlorite 473 ml 09/09/25 21:00 09/09/25 21:08 Sod Hypochlorite 1/4 Str 473 Ml Btl IRRIG 10/09/25 20:59 1 applicatio HS DEWAYNE Administration Sucralfate 1 gm 09/09/25 14:00 09/10/25 05:31 Sucralfate 1 Gm Tablet PO 10/09/25 13:59 1 gm TID DEWAYNE Administration Zinc Sulfate 220 mg 09/10/25 09:00 Zinc Sulfate 220 Mg Capsule PO 09/24/25 08:59 QDAY DEWAYNE Plan # Asymptomatic hyperosmolar hypovolemic hyponatremia Patient is AO x 4.? On admission sodium 118, improved to 121 after 1L NS. ?Patient is currently asymptomatic.? 09/09: Sodium improved 121-126 Plan: -Consult nephrology, Dr. Mauro, appreciate recs: Significant GI losses, likely due to dumping syndrome.? Continue maintenance NS 100 cc/h. Discontinue cardiac and fluid restrictions. ? -Sodium check Q4H -Continue NS 100 cc/h -Neuro check Q4H # Urinary tract infection # Chronic Michel catheter WBC 22.9.? History of ESBL recurrent UTI. 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 ?CTAP showed bladder mass. Blood culture 09/08 no growth to date.? Urine culture 09/08 ESBL positive. Currently on Zosyn Plan: - Continue Zosyn - Continue to follow up outpatient with Urologist, Dr. Rand # Abdominal pain # Dumping syndrome History of abdominal pain x 2 months. EKG Troponin negative. Previous EGD in 03/2025 showed negative H. pylori, esophagitis and gastritis. Will start GI cocktail trial today. Patient concerned for C.diff given watery output from ileostomy bag which seemed more formed and has not changed according to patient. No indication for C. diff testing at this time. Consult nephrology, Dr. Mauro, appreciate recs: Normal saline if hyponatremic, significant GI losses, likely due to dumping syndrome. Plan: -GI cocktail and sucralfate -Resume home Percocet 5mg # History of endometrial carcinoma # Bladder mass Status post hysterectomy and bilateral salpingo-oophorectomy radiation chemo. CTAP positive upper bladder 38 mm, consistent with bladder carcinoma, recommend urology consult and cystoscopy. Pathology 02/09/25 negative for dysplasia and malignancy. Plan: - Continue to follow up outpatient with Urologist, Dr. Rand #Hypertension No HTN home meds Plan: -Continue Lisinopril 5mg QD -Continue Hydralazine 10mg Q6H prn Health Maintenance: Code status: DNR DVT prophylaxis: Heparin GI prophylaxis: Protonix Diet: Cardiac Michel: yes Lines: PIV Supplemental O2: None Disposition: Medsur bed Assessment and plan discussed with my attending physician Dr. Rosenberg and Dr. Carranza (PGY-2). Dr. Perez (PGY-1) ? vice president biostatistics Attending Provider Attestation/Addendum I have seen and examined the patient. I was physically present for the [place] portions of the services provided including history, physical exam, diagnosis, treatment plans and orders. I agree with assessment and plan of care as documented by residents. Patient seen and examined at bedside this morning. Continues to complain of epigastric pain. Received sucralfate and viscous lidocaine before meal without adequate relief. We will obtain GI consult for further evaluation of epigastric pain. Nephrology following closely, sodium has improved to 125 today, Increased IV hydration to 100 cc/h of normal saline with discontinuation of fluid restriction. Has been making good amount of urine. Continues to be on IV Zosyn for ESBL UTI. Patient had watery stool on her ileostomy bag, concern for dumping syndrome/low absorption. Continues to be on lisinopril and as needed hydralazine for hypertension. Hemoglobin noted to have down trended from 8.9 yesterday to 7.6 today, no signs of active bleeding patient had received IV hydration, possibility of hemodilution, we will monitor closely, will transfuse if hemoglobin drops less than 7. Even though this this note was carefully revised there may still be minor errors in metal flooring installer due to voice recognition software. Keshav Rosenberg MD
[2025-09-10] MEDS: CALCIUM CARBONATE 600 MG TABLET PO (08:44)
[2025-09-10] MEDS: MULTIVITAMINS TABLET 1 TAB PO (08:44)
[2025-09-10] MEDS: ASCORBIC ACID 250 MG TABLET 500 MG PO ×2 (08:44→21:15)
[2025-09-10] MEDS: ZINC SULFATE 220 MG CAPSULE PO (08:45)
[2025-09-10] MEDS: SODIUM CHLORIDE 0.9% 1000 ML 1,000 ML 80 ML IV (08:54)
[2025-09-10] MEDS: SODIUM CHLORIDE 0.9% 1000 ML 1,000 ML 100 ML IV (10:22)
--- NOTE | 2025-09-10 11:32 | ESPR_ITS ---
Documentation for date of: 09/10/25 Subjective Subjective Interval history: Interval history: Ms. Schmid is a 65-year-old lady with significant past medical history of endometrial carcinoma status post total abdominal hysterectomy and oophorectomy ([facility]), SP radiation and chemotherapy (until 2021), SP colostomy with a dumping syndrome (rectovaginal fistula in 2022),DM, HLD, PAD SP right AKA (2021) and chronic indwelling Michel catheter (since 2022) chronic left heel ulcer x 1 year, followed by fundraising specialist, bedbound-presents with epigastric pain and left chest pain radiating to back x 2 months. ?Admitted worsening pain since last admission 09/01/2025, recently ran out of oxycodone 5mg at home. Patient also stated she has decubitus wound. Patient also has sacral ulcer with osteomyelitis and 12/2024 . Admits having significant loose stools for the last 2 weeks. Decreased p.o. intake. Medications at home included vitamin C, Lipitor, Benadryl, vitamin D, Pepcid, iron, gabapentin, Lantus, Humalog, methocarbamol, Nephro-Jerri, Percocet, simethicone In the emergency department blood pressure was elevated at 171/91. Labs showed white count 22.9, hemoglobin 10, platelets 628. Coags normal. Sodium 118, potassium 4.6, creatinine 0.6, blood sugar 194, uric acid 3.6, LFTs normal, alk phos 155, troponin normal, albumin 4.3 urinalysis shows significant pyuria stool for white cells negative. Abdominal pelvic CT scan showed mass involving the upper bladder gallbladder ultrasound showed multiple gallstones with no acute cholecystitis. Chest x-ray was negative. Renal consultation requested for hyponatremia. 09/09/2025 sodium seems to be better at 126. Patient still having a lot of loose stools from the colostomy. WBC stool negative. Continue with half NS. 09/10/2025 : Patient seen and examined at bedside this a.m. Complains of feeling thirsty.Urine output in the past 24 hours 2400 cc. Sodium 124, OSM 254. Increased maintenance normal saline to 100 cc/h, discontinued fluid restriction and cardiac restrictions. Exam Vital Signs Temp Pulse Resp BP Pulse Ox O2 Del Method 97.9 F 79 18 134/50 H 98 Room Air 09/10/25 08:00 09/10/25 08:46 09/10/25 08:20 09/10/25 08:46 09/10/25 08:00 09/10/25 08:00 Narrative Exam GENERAL APPEARANCE: Patient currently seen in medical floor. Patient turned to her right side NECK: Neck supple, no JVD or bruit CARDIOVASCULAR: Heart regular, no murmurs LUNGS/CHEST: Chest clear to auscultation. No rales, rhonchi, wheezing ABDOMEN: Soft, nontender, nondistended. No masses. Normal bowel sounds. ++ Colostomy EXTREMITIES: No edema, clubbing or cyanosis. SKIN: Left heel ulcer and is wrapped MUSCULOSKELETAL: Right AKA NEUROLOGICAL : No neurological deficits Objective Labs 09/11/25 11:18 09/11/25 04:38 Labs: Laboratory Results - last 24 hr 09/09/25 09/09/25 09/10/25 15:53 22:52 05:19 WBC 12.4 H RBC 2.66 L Hgb 7.6 L Hct 22.8 L MCV 86 MCH 28.6 MCHC 33.3 RDW Std Deviation 39.9 Plt Count 429 D Neut % (Auto) 73 Lymph % (Auto) 15 [place] % (Auto) 8 Eos % (Auto) 4 Baso % (Auto) 0 Neut # (Auto) 9.0 H Lymph # (Auto) 1.8 [place] # (Auto) 1.0 H Eos # (Auto) 0.5 Baso # (Auto) 0.0 Immature Gran # (Auto) 0.08 H Absolute Nucleated RBC 0.00 Immature Gran % 1 H Nucleated RBC % 0 Sodium 123 L 122 L 125 L Potassium 4.3 D 4.0 Chloride 91 L 94 L Carbon Dioxide 24.3 22.8 Anion Gap 8 8 BUN 7 L 8 L Creatinine 0.8 0.9 Estim Creat Clear Calc 66.4 59.0 L eGFR > 60 > 60 BUN/Creatinine Ratio 9 L 9 L Glucose [address] Glu mg/dL 183 H Hemoglobin A1c 8.0 H Calculated Osmolality 253 L 254 L Calcium 8.0 L 7.8 L Corrected Calcium 8.3 L 8.4 L Phosphorus 2.9 2.9 Magnesium 1.7 Total Bilirubin 0.2 L AST 13 ALT 10 Alkaline Phosphatase 116 D Total Protein 6.0 Albumin 3.6 3.3 L Globulin 2.7 Albumin/Globulin Ratio 1.2 Quality Measures Quality Measures none Advance care planning discussed with:: patient Assessment & Plan Assessment Current Active Medications: Generic Name Dose Route Start Last Admin Trade Name Freq PRN Reason Stop Dose Admin Acetaminophen 650 mg 09/08/25 18:40 Acetaminophen 325 Mg Tablet PO 10/08/25 18:39 Q6H PRN Fever >100.4 and Pain 1-3 Ascorbic Acid 500 mg 09/09/25 21:00 09/10/25 08:44 Ascorbic Acid 250 Mg Tablet PO 10/09/25 20:59 500 mg BID DEWAYNE Administration Dextrose 25 ml 09/10/25 07:37 Dextrose 50%-Water Inj 50 Ml Syringe IV 10/10/25 07:36 Q15MIN PRN BG 50-70 responsive npo pt Dextrose 50 ml 09/10/25 07:37 Dextrose 50%-Water Inj 50 Ml Syringe IV 10/10/25 07:36 Q15MIN PRN BG <50 OR BG <70 & pt unresponsive Gabapentin 300 mg 09/09/25 09:45 09/10/25 05:41 Gabapentin 300 Mg Capsule PO 10/09/25 09:44 Not Given TID DEWAYNE Glucagon 1 mg 09/10/25 07:37 Glucagon Inj 1 Mg Vial IM Q15MIN PRN BG <70, and no IV access Heparin Sodium (Porcine) 5,000 unit 09/08/25 18:45 09/10/25 07:52 Heparin Sod Inj 5000 Unit/Ml Vial SC 09/22/25 18:44 Not Given Q12H DEWAYNE Hydralazine HCl 10 mg 09/09/25 08:46 Hydralazine Hcl 10 Mg Tablet PO 10/09/25 08:45 Q6H PRN SBP>160 hold if SBP<140 HR>110 Piperacillin Sod/Tazobactam 100 mls @ 200 mls/hr 09/08/25 18:43 09/10/25 05:31 Sod 4.5 gm/ Sodium Chloride IV 09/15/25 18:42 200 mls/hr Q6HR DEWAYNE Administration Protocol Sodium Chloride 1,000 mls @ 100 mls/hr 09/10/25 10:14 09/10/25 10:22 Ns IV 09/10/25 20:13 100 mls/hr .Q10H DEWAYNE Administration Insulin Degludec 20 unit 11/22/25 09:00 09/10/25 08:45 Insulin Degludec 5 Unit/0.05 Ml (Per 5 Units) SC 10/10/25 08:59 Not Given QDAY DEWAYNE Insulin Human Lispro 0 unit 09/10/25 11:30 Insulin Lispro (Admelog) 1 Unit/0.01 Ml Unit SC 10/10/25 11:29 AC [facility] Protocol Lidocaine HCl 15 ml 09/10/25 11:30 Lidocaine Viscous 2% 15 Ml Udc PO 10/10/25 11:29 AC [facility] Lisinopril 5 mg 09/09/25 09:00 09/10/25 08:46 Lisinopril 2.5 Mg Tablet PO 10/09/25 08:59 Not Given QDAY DEWAYNE Multivitamins 1 tab 09/10/25 09:00 09/10/25 08:44 Multivitamins Tablet PO 10/10/25 08:59 1 tab QDAY DEWAYNE Administration Oxycodone/Acetaminophen 1 tab 09/08/25 18:40 09/10/25 05:39 Oxycodone/Apap 5/325 Tablet PO 09/13/25 18:39 1 tab Q6H PRN Administration PAIN SCALE 4-10(Mod-Sev Pantoprazole Sodium 40 mg 09/10/25 09:00 09/10/25 08:45 Pantoprazole Inj 40 Mg Vial IVP 10/10/25 08:59 40 mg QDAY DEWAYNE Administration Sennosides 1 tab 09/08/25 18:40 Senna Tablet PO 10/08/25 18:39 QDAY PRN constipation Protocol Sodium Hypochlorite 473 ml 09/09/25 21:00 09/09/25 21:08 Sod Hypochlorite 1/4 Str 473 Ml Btl IRRIG 10/09/25 20:59 1 applicatio HS DEWAYNE Administration Sucralfate 1 gm 09/09/25 14:00 09/10/25 05:31 Sucralfate 1 Gm Tablet PO 10/09/25 13:59 1 gm TID DEWAYNE Administration Zinc Sulfate 220 mg 09/10/25 09:00 09/10/25 08:45 Zinc Sulfate 220 Mg Capsule PO 09/24/25 08:59 220 mg QDAY DEWAYNE Administration Plan 65-year-old female patient with significant medical history for endometrial carcinoma SP hysterectomy and bilateral salpingo oophorectomy ([facility]), SP radiation and chemotherapy (until 2021), SP ileostomy (rectovaginal fistula in 2022), HLD, PAD SP right AKA and chronic indwelling Michel catheter (since 2022) bedbound chronic left heel ulcer x 1 year, followed by fundraising specialist, presents with epigastric pain and left chest pain radiating to back x 2 months. ?Admitted worsening pain since last admission 09/01, recently ran out of oxycodone 5mg at home. ?Reported improvement on left lower extremity wound with wound nurse. Nephrology was consulted for hyponatremia. (1) Hyponatremia - stable Status: Acute Assessment and plan: Hypovolemic hyponatremia. Agree with normal saline. Patient has significant GI losses. Will monitor closely. Urine output in the past 24 hours 2400 cc. Sodium 124, OSM 254 Plan: ? Increased maintenance normal saline to 100 cc/h ? Discontinued cardiac restrictions - Discontinue fluid restriction (2) Diarrhea: Status: Acute Assessment and plan: So far workup for WBC negative. Patient seems to have dumping syndrome. (3) Sacral decubitus ulcer: Status: Acute Assessment and plan: Wound care (4) Lower extremity ulceration: Status: Acute Assessment and plan: Wound care (5) Diabetes: Status: Acute Assessment and plan: 1. Check blood sugars twice daily, log them and bring them back with the next visit. 2. is blood sugars above 400 or less than 80, call M.D. 3. Stay active and physically fit 4. Comply with diet and medications 5. Low carbohydrate diet Was on insulin at home Thank you for the opportunity to participate in Mrs. Elliott's care Plan of care discussed with Attending Dr. Nj Carlin MD PGY 2 Disclaimer: This note was dictated by speech recognition. Minor errors in director product may be present due to voice recognition software. Attending Provider Attestation/Addendum Patient currently seen and examined with resident physician Dr. Carlin. Note reviewed, agree with findings and recommendations. Patient currently seen in medical floor. Sodium seems to be better. Continue with regular diet. Off IV fluids. Patient with Colostomy-formed stool
[2025-09-10] MEDS: LIDOCAINE VISCOUS 2% 15 ML UDC PO ×2 (11:53→16:18)
[2025-09-10] MEDS: INSULIN LISPRO (AdmeLOG) 1 UNIT/0.01 ML UNIT SC ×2 (11:56→16:16)
[2025-09-10 12:19] LABS: Sodium 124 mMol/L (136-145)
[2025-09-10] MEDS: GABAPENTIN 300 MG CAPSULE PO ×2 (13:29→21:15)
--- NOTE | 2025-09-10 14:53 | PC.SS ---
Rounding: Hyponatremic, on IV fluids, GI consulting
--- NOTE | 2025-09-10 16:04 | PD.IMCONS ---
HPI Data of Consult Requesting Physician: Keshav Rosenberg MD Primary Care Provider: Emiliano Rosas MD Consult Narrative Reason for consult: Chest pain epigastric pain History of present illness: 65 years old female who has a history of endometrial carcinoma status post hysterectomy bilateral salpingo-oophorectomy followed by chemotherapy and radiation therapy [facility] 2016 Who also has a colovesical fistula requiring colostomy I been consulted for chest pain and epigastric pain Imaging studies in the past including MRCP in the last 30 days showing cholelithiasis but no CBD stone or intrahepatic ductal stone Gallbladder ultrasound has shown cholelithiasis but no evidence of cholecystitis CT scan of the abdomen pelvis had shown thickening of the rectal wall Colonoscopy 04/03/2025 showed via stoma all the way up to the proximal ascending colon AVMs in the right colon otherwise negative because of patient discomfort as she is allergic to fentanyl the procedure was stopped EGD upper endoscopy 03/31/2025 showed esophagitis and gastritis Gastric mucosa biopsy negative for Helicobacter pylori Esophageal biopsy negative for eosinophilic esophagitis or Olson's esophagus Patient has a history of rectovaginal fistula hyperlipidemia peripheral artery disease status post right AKA and chronic Michel catheter cc:: cc: Keshav Rosenberg MD Review of Systems Review of Systems Systems Reviewed: All systems reviewed, normal except as documented Past Medical History Surgical History OTHER SURGICAL HX: As in the history of present illness Meds Home Medications and Allergies Home Medications ?Medication ?Instructions ?Recorded ?Confirmed ?Type atorvastatin 40 mg tablet 40 mg PO HS 04/03/22 09/08/25 History ascorbic acid (vitamin C) 250 mg 250 mg PO QDAY 12/26/24 09/08/25 History tablet (Vitamin C) gabapentin 300 mg capsule 300 mg PO TID 12/26/24 09/08/25 History methocarbamol 500 mg tablet 500 mg PO BID 12/26/24 09/08/25 History multivitamin with minerals-ferrous 1 tab PO QDAY 12/26/24 09/08/25 History sulfate 15 mg iron tablet Diphenhydramine HCL 25 mg PO Q8HR PRN itching 03/28/25 09/08/25 History Milk of Magnesia 30 ml PO .every 72 PRN constipation 03/28/25 09/08/25 History ergocalciferol (vitamin D2) 1,250 1,250 mcg PO QWEEK 03/28/25 09/08/25 History mcg (50,000 unit) capsule ferrous sulfate 325 mg (65 mg 325 mg PO BID 03/28/25 09/08/25 History iron) tablet (FeroSul) insulin glargine 100 unit/mL (3 20 unit subcut BID 03/28/25 09/08/25 History mL) subcutaneous pen (Lantus Solostar U-100 Insulin) oxycodone-acetaminophen 5 mg-325 1 tab PO [id number] PRN pain 03/28/25 09/08/25 History mg tablet (Percocet) simethicone 80 mg chewable tablet 80 mg PO [id number] PRN Gas 03/28/25 09/08/25 History vitamin B complex-vitamin C-folic 1 tab PO QDAY 03/28/25 09/08/25 History acid 0.8 mg tablet (Nephro-Jerri) insulin lispro 100 unit/mL 1 sliding scale dose subcut 03/29/25 09/08/25 History subcutaneous solution (Humalog USEASDIRECTD U-100 Insulin) famotidine 20 mg tablet 40 mg PO QDAY Upper abdominal pain 09/08/25 09/08/25 History Allergies Allergy/AdvReac Type Severity Reaction Status Date / Time midazolam (From Versed) Allergy Severe Anaphylaxis Verified 09/02/25 07:42 fentanyl AdvReac Mild Numbness Verified 05/10/25 10:45 latex AdvReac Mild RASH Verified 05/10/25 10:45 morphine AdvReac Unknown Verified 05/10/25 10:45 Exam Vital Signs Temp Pulse Resp BP Pulse Ox O2 Del Method 97.7 F 82 18 137/57 H 99 Room Air 09/10/25 12:00 09/10/25 12:00 09/10/25 12:00 09/10/25 12:00 09/10/25 12:00 09/10/25 12:00 Constitutional Comments: Chronically ill-appearing Routine Respiratory Exam Comments: Normal to auscultation Routine Abdominal Exam Comments: Colostomy in place positive bowel sounds Results Labs 09/10/25 05:19 09/10/25 12:00 Labs: Short CBC 09/10/25 Range/Units 05:19 WBC 12.4 H (3.6-11.0) Thou/mm3 Hgb 7.6 L (12.0-16.0) g/dL Hct 22.8 L (36.0-46.0) % Plt Count 429 D (140-440) Thou/mm3 BMP 09/09/25 09/09/25 09/10/25 15:53 22:52 05:19 Sodium 123 L 122 L 125 L Potassium 4.3 D 4.0 Chloride 91 L 94 L Carbon Dioxide 24.3 22.8 BUN 7 L 8 L Creatinine 0.8 0.9 Glucose 238 H D 183 H D Calcium 8.0 L 7.8 L 09/10/25 12:00 Sodium 124 L Potassium Chloride Carbon Dioxide BUN Creatinine Glucose Calcium Liver Function 09/09/25 09/10/25 Range/Units 15:53 05:19 Total Bilirubin 0.2 L (0.3-1.2) mg/dL AST 13 (0-34) U/L ALT 10 (10-49) U/L Alkaline Phosphatase 116 D (46-116) U/L Albumin 3.6 3.3 L (3.4-4.8) gm/dL Assessment and Plan Additional Assessment & Plan Additional Plan: # Atypical chest pain # Epigastric abdominal pain # Cholelithiasis very symptomatic or asymptomatic not clear Suggestions HIDA scan without the pharmaceutical to see if the gallbladder is functioning or nonfunctioning If nonvisualization of the gallbladder then I would recommend laparoscopic cholecystectomy Repeat endoscopy scheduled for tomorrow Other medical problems include Endometrial carcinoma status post hysterectomy bilateral salpingo oophorectomy followed by radiation and chemotherapy 2026 at [facility] Rectovaginal fistula requiring colostomy Hyperlipidemia Peripheral artery disease status post right AKA Chronic Michel catheter Rectal wall thickening Thank you once again for the opportunity to participate in the care of this patient
--- NOTE | 2025-09-10 16:10 | XR_ITS ---
Examination: Nuclear medicine hepatobiliary scan, static HIDA scan Date of exam: September 12, 2025, 1758 hours INDICATIONS: Onset upper abdominal pain hyponatremia, 38 mm mass likely bladder cancer, cholelithiasis Technique And Findings: 6.0 mCi 99m Hepatolite administered intravenously. Serial imaging obtained immediately through 60 minutes. Homogenous uptake in the liver. Gallbladder activity No significant common bile duct or small bowel activity Impression: Negative for cystic duct obstruction, no findings consistent for cholecystitis No significant common bile duct or small bowel activity which may be a function of liver disease
[2025-09-10] MEDS: HEPARIN SOD INJ 5000 UNIT/ML VIAL SC (17:45)
[2025-09-10 18:22] LABS: Sodium 127 mMol/L (136-145)
[2025-09-10] MEDS: SOD HYPOCHLORITE 1/4 STR 473 ML BTL IRRIG (21:15)
[2025-09-11] VITALS (17 sets, daily range): BP systolic 114–158; BP diastolic 48–90; PULSE 70–89; RESP 14–98; TEMP 35.9–36.6; O2SAT 98–100
[2025-09-11 00:59] LABS: Sodium 127 mMol/L (136-145)
[2025-09-11] MEDS: PIPER/TAZO INJ 4.5 GM in SODIUM CHLORIDE 0.9% (POP) 100 ML IV ×3 (05:22→23:48)
[2025-09-11 05:42] LABS: Basophils # (Auto) 0.1 Thou/mm3 (0.0-0.2); Basophils % (Auto) 0 % (0-2.5); Eosinophils # (Auto) 0.4 Thou/mm3 (0.0-0.5); Eosinophils % (Auto) 3 % (0-10); Hematocrit 22.1 % (36.0-46.0); Immature Granulocytes Auto 0.08 Thou/mm3 (0.00-0.00); Lymphocytes # (Auto) 2.3 Thou/mm3 (1.0-4.8); Lymphocytes % (Auto) 18 % (10-50); Mean Corpuscular HGB Conc 32.1 g/dl (31.0-37.0); Mean Corpuscular Hemoglobin 28.3 pg (25.0-35.0); Mean Corpuscular Volume 88 fL (80-100); Monocytes # (Auto) 1.0 Thou/mm3 (0.0-0.8); Monocytes % (Auto) 7 % (0-12); Neutrophils # (Auto) 9.3 Thou/mm3 (1.8-7.7); Neutrophils % (Auto) 71 % (37-80); Nucleated Red Blood Cell # 0.00 Thou/mm3 (0.00-0.00); Nucleated Red Blood Cell % 0 /100 WBC (0); Platelet Count 386 Thou/mm3 (140-440); RDW Standard Deviation 41.4 fL (36.4-46.3); Red Blood Count 2.51 Miln/mm3 (4.00-5.20); White Blood Count 13.2 Thou/mm3 (3.6-11.0)
[2025-09-11 05:44] LABS: Hemoglobin 7.1 g/dL (12.0-16.0)
[2025-09-11 06:38] LABS: Alanine Aminotransferase 8 U/L (10-49); Albumin, Serum 3.1 gm/dL (3.4-4.8); Albumin/Globulin Ratio 1.2 (1.2-2.2); Alkaline Phosphatase 121 U/L (46-116); Anion Gap 9 (7-16); Aspartate Amino Transferase 10 U/L (0-34); BUN/Creatinine Ratio 6 Ratio (12-20); Bilirubin,Total < 0.2 mg/dL (0.3-1.2); Blood Urea Nitrogen 7 mg/dL (9-23); Calcium 7.5 mg/dL (8.3-10.6); Calcium (Corrected) 8.2 mg/dL (8.5-10.1); Carbon Dioxide 21.5 mMol/L (20.0-31.0); Chloride 98 mMol/L (98-107); Creatinine (Component) 1.1 mg/dL (0.6-1.3); Estimated Creatinine Clearance 48.3 mL/min (>60); Globulin 2.6 gm/dL (2.3-3.5); Glucose 195 mg/dL (74-106); Magnesium 1.5 mg/dL (1.6-2.6); Osmolality,Calculated 260 (275-295); Phosphorous 2.7 mg/dL (2.4-5.1); Potassium 4.1 mMol/L (3.4-5.1); Sodium 128 mMol/L (136-145); Total Protein 5.7 gm/dL (5.7-8.2); eGFR 55 See Note
--- NOTE | 2025-09-11 08:21 | ESPR_ITS ---
<Statement entered by Campbell Carranza MD - 09/12/25 14:35> Patient seen and examined at bedside. I discussed and supervised with the event marketing intern physician who took care of this patient. I personally saw and examined the patient. I agree with most of the assessment and plan. Plan of care discussed with attending Dr. Rosenberg. Campbell Carranza MD PGY-2 Documentation for date of: 09/11/25 Subjective Subjective Interval history: Patient endorsed pain and midepigastric and substernal began today. Has been n.p.o. since midnight. Ileostomy bag shoulder more formed stool output. Sodium is 128 today, continue 1 L NS 75 cc/h. Hgb 7.1, no signs of bleeding. Will transfuse 1 unit of blood and recheck H&H posttransfusion. Pending stool occult blood test. Creatinine continue to uptrend. Stop lisinopril, start amlodipine for hypertension. GI, Dr. Lopez, consulted, appreciate recs: HIDA scan without pharmaceutical to visualize gallbladder, if not visualize recommend lap rhett, repeat EGD today. Exam Vital Signs Temp Pulse Resp BP Pulse Ox O2 Del Method 97.9 F 83 18 146/56 H 98 Room Air 09/11/25 08:00 09/11/25 08:00 09/11/25 08:00 09/11/25 08:00 09/11/25 08:00 09/11/25 08:00 Narrative Exam General: No acute distress, well nourished, AAO x4 Eye: PERRL, EOMI, normal conjunctiva, no scleral icterus HENT: Normocephalic, atraumatic, hearing intact to conversation at normal volume, moist oral mucosa Neck: Supple, non-tender, no JVD, no lymphadenopathy Lungs: Non-labored respirations, symmetric chest rise, Clear to auscultate bilaterally, No wheezing, rhonchi, crackles Heart: Peripheral pulses intact bilaterally, Regular Rate and Rhythm. Abdomen: Soft, tender to palpation epigastric, non-distended, no palpable masses Musculoskeletal: Normal range of motion and strength, healed right AKA, LLE wrapped in kerlix, functional right ileostomy bag Skin: Skin is warm, dry, no rashes or lesions. Psychiatric: Cooperative, appropriate mood and affect, Awake and alert, not agitated Neuro: Cranial nerves II-XII grossly intact. Strength 5/5 throughout. Sensations intact to light touch. Objective Labs 09/13/25 04:50 09/13/25 04:50 Labs: Laboratory Results - last 24 hr 09/10/25 09/10/25 09/10/25 00:09 05:19 12:00 WBC RBC Hgb Hct MCV MCH MCHC RDW Std Deviation Plt Count Neut % (Auto) Lymph % (Auto) [place] % (Auto) Eos % (Auto) Baso % (Auto) Neut # (Auto) Lymph # (Auto) [place] # (Auto) Eos # (Auto) Baso # (Auto) Immature Gran # (Auto) Absolute Nucleated RBC Immature Gran % Nucleated RBC % Sodium 127 L 125 L 124 L Potassium Chloride Carbon Dioxide Anion Gap BUN Creatinine Estim Creat Clear Calc eGFR BUN/Creatinine Ratio Glucose Calculated Osmolality Calcium Corrected Calcium Phosphorus Magnesium Total Bilirubin AST ALT Alkaline Phosphatase Total Protein Albumin Globulin Albumin/Globulin Ratio 09/10/25 09/11/25 18:05 04:38 WBC 13.2 H RBC 2.51 L Hgb 7.1 L Hct 22.1 L MCV 88 MCH 28.3 MCHC 32.1 RDW Std Deviation 41.4 Plt Count 386 D Neut % (Auto) 71 Lymph % (Auto) 18 [place] % (Auto) 7 Eos % (Auto) 3 Baso % (Auto) 0 Neut # (Auto) 9.3 H Lymph # (Auto) 2.3 [place] # (Auto) 1.0 H Eos # (Auto) 0.4 Baso # (Auto) 0.1 Immature Gran # (Auto) 0.08 H Absolute Nucleated RBC 0.00 Immature Gran % 1 H Nucleated RBC % 0 Sodium 127 L 128 L Potassium 4.1 Chloride 98 Carbon Dioxide 21.5 Anion Gap 9 BUN 7 L Creatinine 1.1 Estim Creat Clear Calc 48.3 L eGFR 55 L BUN/Creatinine Ratio 6 L Glucose 195 H Calculated Osmolality 260 L Calcium 7.5 L Corrected Calcium 8.2 L Phosphorus 2.7 Magnesium 1.5 L Total Bilirubin < 0.2 L AST 10 ALT 8 L Alkaline Phosphatase 121 H Total Protein 5.7 Albumin 3.1 L Globulin 2.6 Albumin/Globulin Ratio 1.2 Quality Measures Quality Measures VTE prophylaxis Advance care planning discussed with:: patient Assessment & Plan Assessment Current Active Medications: Generic Name Dose Route Start Last Admin Trade Name Freq PRN Reason Stop Dose Admin Acetaminophen 650 mg 09/08/25 18:40 Acetaminophen 325 Mg Tablet PO 10/08/25 18:39 Q6H PRN Fever >100.4 and Pain 1-3 Ascorbic Acid 500 mg 09/09/25 21:00 09/10/25 21:15 Ascorbic Acid 250 Mg Tablet PO 10/09/25 20:59 500 mg BID DEWAYNE Administration Dextrose 25 ml 09/10/25 07:37 Dextrose 50%-Water Inj 50 Ml Syringe IV 10/10/25 07:36 Q15MIN PRN BG 50-70 responsive npo pt Dextrose 50 ml 09/10/25 07:37 Dextrose 50%-Water Inj 50 Ml Syringe IV 10/10/25 07:36 Q15MIN PRN BG <50 OR BG <70 & pt unresponsive Gabapentin 300 mg 09/09/25 09:45 09/11/25 05:24 Gabapentin 300 Mg Capsule PO 10/09/25 09:44 Not Given TID DEWAYNE Glucagon 1 mg 09/10/25 07:37 Glucagon Inj 1 Mg Vial IM Q15MIN PRN BG <70, and no IV access Heparin Sodium (Porcine) 5,000 unit 09/08/25 18:45 09/11/25 06:20 Heparin Sod Inj 5000 Unit/Ml Vial SC 09/22/25 18:44 Not Given Q12H [facility] Hydralazine HCl 10 mg 09/09/25 08:46 Hydralazine Hcl 10 Mg Tablet PO 10/09/25 08:45 Q6H PRN SBP>160 hold if SBP<140 HR>110 Piperacillin Sod/Tazobactam 100 mls @ 200 mls/hr 09/08/25 18:43 09/11/25 05:22 Sod 4.5 gm/ Sodium Chloride IV 09/15/25 18:42 200 mls/hr Q6HR DEWAYNE Administration Protocol Insulin Degludec 20 unit 09/10/25 09:00 09/10/25 08:45 Insulin Degludec 5 Unit/0.05 Ml (Per 5 Units) SC 10/10/25 08:59 Not Given QDAY [facility] Insulin Human Lispro 0 unit 09/10/25 11:30 09/11/25 07:23 Insulin Lispro (Admelog) 1 Unit/0.01 Ml Unit SC 10/10/25 11:29 Not Given AC DEWAYNE Protocol Lidocaine HCl 15 ml 09/10/25 11:30 09/10/25 16:18 Lidocaine Viscous 2% 15 Ml Udc PO 10/10/25 11:29 15 ml AC DEWAYNE Administration Lisinopril 5 mg 09/09/25 09:00 09/10/25 08:46 Lisinopril 2.5 Mg Tablet PO 10/09/25 08:59 Not Given QDAY DEWAYNE Multivitamins 1 tab 09/10/25 09:00 09/10/25 08:44 Multivitamins Tablet PO 10/10/25 08:59 1 tab QDAY DEWAYNE Administration Oxycodone/Acetaminophen 1 tab 09/08/25 18:40 09/10/25 23:22 Oxycodone/Apap 5/325 Tablet PO 09/13/25 18:39 1 tab Q6H PRN Administration PAIN SCALE 4-10(Mod-Sev Pantoprazole Sodium 40 mg 09/10/25 09:00 09/10/25 08:45 Pantoprazole Inj 40 Mg Vial IVP 10/10/25 08:59 40 mg QDAY DEWAYNE Administration Sennosides 1 tab 09/08/25 18:40 Senna Tablet PO 10/08/25 18:39 QDAY PRN constipation Protocol Sodium Hypochlorite 473 ml 09/09/25 21:00 09/10/25 21:15 Sod Hypochlorite 1/4 Str 473 Ml Btl IRRIG 10/09/25 20:59 1 applicatio HS DEWAYNE Administration Sucralfate 1 gm 09/09/25 14:00 09/11/25 05:24 Sucralfate 1 Gm Tablet PO 10/09/25 13:59 Not Given TID DEWAYNE Zinc Sulfate 220 mg 09/10/25 09:00 09/10/25 08:45 Zinc Sulfate 220 Mg Capsule PO 09/24/25 08:59 220 mg QDAY DEWAYNE Administration Plan # Asymptomatic hyperosmolar hypovolemic hyponatremia Patient is AO x 4.? On admission sodium 118, improved to 121 after 1L NS. ?Patient is currently asymptomatic.? 09/11: Sodium improved 128 Plan: -Consult nephrology, Dr. Mauro, appreciate recs. ? -Discontinue fluid restriction -Sodium check Q6H -Continue NS 75 cc/h -Neuro check Q4H #Anemia equiring blood transfusion Hgb 7.1, no signs of bleeding. Plan: - Will transfuse 1 unit of blood and recheck H&H posttransfusion - Pending stool occult blood test # Urinary tract infection # Chronic Michel catheter WBC 22.9.? History of ESBL recurrent UTI. 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 ?CTAP showed bladder mass. Blood culture 09/08 no growth to date.? Urine culture 09/08 ESBL positive. Currently on Zosyn Plan: - Continue Zosyn (09/08-09/15) - Continue to follow up outpatient with Urologist, Dr. Rand # Abdominal pain # Dumping syndrome History of abdominal pain x 2 months. EKG Troponin negative. Previous EGD in 03/2025 showed negative H. pylori, esophagitis and gastritis. Will start GI cocktail trial today. Patient concerned for C.diff given watery output from ileostomy bag which seemed more formed and has not changed according to patient. No indication for C. diff testing at this time. Consult nephrology, Dr. Mauro, appreciate recs: Normal saline if hyponatremic, significant GI losses, likely due to dumping syndrome. Plan: -GI, Dr. Lopez, consulted, appreciate recs: HIDA scan without pharmaceutical to visualize gallbladder, if not visualize recommend lap rhett, repeat EGD today. -Pending HIDA scan -GI cocktail and sucralfate -Continue home Percocet 5mg # History of endometrial carcinoma # Bladder mass Status post hysterectomy and bilateral salpingo-oophorectomy radiation chemo. CTAP positive upper bladder 38 mm, consistent with bladder carcinoma, recommend urology consult and cystoscopy. Pathology 02/09/25 negative for dysplasia and malignancy. Plan: - Continue to follow up outpatient with Urologist, Dr. Rand #Hypertension No HTN home meds Plan: -Continue Lisinopril 5mg QD -Continue Hydralazine 10mg Q6H prn Health Maintenance: Code status: DNR DVT prophylaxis: Heparin GI prophylaxis: Protonix Diet: Cardiac Michel: yes Lines: PIV Supplemental O2: None Disposition: Medsur bed Assessment and plan discussed with my attending physician Dr. Rosenberg and Dr. Carranza (PGY-2). Dr. Perez (PGY-1) ? vice president safety Attending Provider Attestation/Addendum I have seen and examined the patient. I was physically present for the [place] portions of the services provided including history, physical exam, diagnosis, treatment plans and orders. I agree with assessment and plan of care as documented by residents. Even though this this note was carefully revised there may still be minor errors in movable bulkhead installer due to voice recognition software. Keshav Rosenberg MD
[2025-09-11] MEDS: Magnesium Sulfate 4 GM Ivpb 4 GM/50 ML BAG IV (09:17)
--- NOTE | 2025-09-11 10:40 | ESPR_ITS ---
Documentation for date of: 09/11/25 Subjective Subjective Interval history: Interval history: Ms. Schmid is a 65-year-old lady with significant past medical history of endometrial carcinoma status post total abdominal hysterectomy and oophorectomy ([facility] 2016), SP radiation and chemotherapy (until 2021), SP colostomy with a dumping syndrome (rectovaginal fistula in 2022),DM, HLD, PAD SP right AKA (2021) and chronic indwelling Michel catheter (since 2022) chronic left heel ulcer x 1 year, followed by interlibrary loan specialist, bedbound-presents with epigastric pain and left chest pain radiating to back x 2 months. ?Admitted worsening pain since last admission 09/01/2025, recently ran out of oxycodone 5mg at home. Patient also stated she has decubitus wound. Patient also has sacral ulcer with osteomyelitis and 12/2024 . Admits having significant loose stools for the last 2 weeks. Decreased p.o. intake. Medications at home included vitamin C, Lipitor, Benadryl, vitamin D, Pepcid, iron, gabapentin, Lantus, Humalog, methocarbamol, Nephro-Jerri, Percocet, simethicone In the emergency department blood pressure was elevated at 171/91. Labs showed white count 22.9, hemoglobin 10, platelets 628. Coags normal. Sodium 118, potassium 4.6, creatinine 0.6, blood sugar 194, uric acid 3.6, LFTs normal, alk phos 155, troponin normal, albumin 4.3 urinalysis shows significant pyuria stool for white cells negative. Abdominal pelvic CT scan showed mass involving the upper bladder gallbladder ultrasound showed multiple gallstones with no acute cholecystitis. Chest x-ray was negative. Renal consultation requested for hyponatremia. 09/09/2025 sodium seems to be better at 126. Patient still having a lot of loose stools from the colostomy. WBC stool negative. Continue with half NS. 09/10/2025 : Patient seen and examined at bedside this a.m. Complains of feeling thirsty.Urine output in the past 24 hours 2400 cc. Sodium 124, OSM 254. Increased maintenance normal saline to 100 cc/h, discontinued fluid restriction and cardiac restrictions. 09/11/2025: Patient seen and examined at bedside this morning. Complains of generalized weakness and fatigue. Urine output 1700 cc in past 24 hours. Continue hydration with IV fluids. Scheduled for colonoscopy today once cleared. Exam Vital Signs Temp Pulse Resp BP Pulse Ox O2 Del Method 97.9 F 83 18 146/56 H 98 Room Air 09/11/25 08:00 09/11/25 08:00 09/11/25 08:00 09/11/25 08:00 09/11/25 08:00 09/11/25 08:00 Narrative Exam GENERAL APPEARANCE: Patient currently seen in medical floor. Patient turned to her right side NECK: Neck supple, no JVD or bruit CARDIOVASCULAR: Heart regular, no murmurs LUNGS/CHEST: Chest clear to auscultation. No rales, rhonchi, wheezing ABDOMEN: Soft, nontender, nondistended. No masses. Normal bowel sounds. ++ Colostomy?formed stool EXTREMITIES: No edema, clubbing or cyanosis. SKIN: Left heel ulcer and is wrapped MUSCULOSKELETAL: Right AKA NEUROLOGICAL : No neurological deficits Objective Labs 09/12/25 06:02 09/12/25 06:02 Labs: Laboratory Results - last 24 hr 09/10/25 09/10/25 09/10/25 00:09 05:19 12:00 WBC RBC Hgb Hct MCV MCH MCHC RDW Std Deviation Plt Count Neut % (Auto) Lymph % (Auto) Greenlee % (Auto) Eos % (Auto) Baso % (Auto) Neut # (Auto) Lymph # (Auto) Greenlee # (Auto) Eos # (Auto) Baso # (Auto) Immature Gran # (Auto) Absolute Nucleated RBC Immature Gran % Nucleated RBC % Sodium 127 L 125 L 124 L Potassium Chloride Carbon Dioxide Anion Gap BUN Creatinine Estim Creat Clear Calc eGFR BUN/Creatinine Ratio Glucose Calculated Osmolality Calcium Corrected Calcium Phosphorus Magnesium Total Bilirubin AST ALT Alkaline Phosphatase Total Protein Albumin Globulin Albumin/Globulin Ratio 09/10/25 09/11/25 18:05 04:38 WBC 13.2 H RBC 2.51 L Hgb 7.1 L Hct 22.1 L MCV 88 MCH 28.3 MCHC 32.1 RDW Std Deviation 41.4 Plt Count 386 D Neut % (Auto) 71 Lymph % (Auto) 18 Greenlee % (Auto) 7 Eos % (Auto) 3 Baso % (Auto) 0 Neut # (Auto) 9.3 H Lymph # (Auto) 2.3 Greenlee # (Auto) 1.0 H Eos # (Auto) 0.4 Baso # (Auto) 0.1 Immature Gran # (Auto) 0.08 H Absolute Nucleated RBC 0.00 Immature Gran % 1 H Nucleated RBC % 0 Sodium 127 L 128 L Potassium 4.1 Chloride 98 Carbon Dioxide 21.5 Anion Gap 9 BUN 7 L Creatinine 1.1 Estim Creat Clear Calc 48.3 L eGFR 55 L BUN/Creatinine Ratio 6 L Glucose 195 H Calculated Osmolality 260 L Calcium 7.5 L Corrected Calcium 8.2 L Phosphorus 2.7 Magnesium 1.5 L Total Bilirubin < 0.2 L AST 10 ALT 8 L Alkaline Phosphatase 121 H Total Protein 5.7 Albumin 3.1 L Globulin 2.6 Albumin/Globulin Ratio 1.2 Quality Measures Quality Measures VTE prophylaxis Advance care planning discussed with:: patient Assessment & Plan Assessment Current Active Medications: Generic Name Dose Route Start Last Admin Trade Name Freq PRN Reason Stop Dose Admin Acetaminophen 650 mg 09/08/25 18:40 Acetaminophen 325 Mg Tablet PO 10/08/25 18:39 Q6H PRN Fever >100.4 and Pain 1-3 Ascorbic Acid 500 mg 09/09/25 21:00 09/11/25 09:13 Ascorbic Acid 250 Mg Tablet PO 10/09/25 20:59 Not Given BID DEWAYNE Dextrose 25 ml 09/10/25 07:37 Dextrose 50%-Water Inj 50 Ml Syringe IV 10/10/25 07:36 Q15MIN PRN BG 50-70 responsive npo pt Dextrose 50 ml 09/10/25 07:37 Dextrose 50%-Water Inj 50 Ml Syringe IV 10/10/25 07:36 Q15MIN PRN BG <50 OR BG <70 & pt unresponsive Gabapentin 300 mg 09/09/25 09:45 09/11/25 05:24 Gabapentin 300 Mg Capsule PO 10/09/25 09:44 Not Given TID DEWAYNE Glucagon 1 mg 09/10/25 07:37 Glucagon Inj 1 Mg Vial IM Q15MIN PRN BG <70, and no IV access Heparin Sodium (Porcine) 5,000 unit 09/08/25 18:45 09/11/25 06:20 Heparin Sod Inj 5000 Unit/Ml Vial SC 09/22/25 18:44 Not Given Q12H DEWAYNE Hydralazine HCl 10 mg 09/09/25 08:46 Hydralazine Hcl 10 Mg Tablet PO 10/09/25 08:45 Q6H PRN SBP>160 hold if SBP<140 HR>110 Piperacillin Sod/Tazobactam 100 mls @ 200 mls/hr 09/08/25 18:43 09/11/25 05:22 Sod 4.5 gm/ Sodium Chloride IV 09/15/25 18:42 200 mls/hr Q6HR DEWAYNE Administration Protocol Magnesium Sulfate 4 gm in 50 mls @ 12.5 mls/hr 09/11/25 09:03 09/11/25 09:17 Magnesium Sulfate Ivpb IV 09/11/25 13:02 12.5 mls/hr X1 ONE Administration Insulin Degludec 20 unit 09/10/25 09:00 09/11/25 09:12 Insulin Degludec 5 Unit/0.05 Ml (Per 5 Units) SC 10/10/25 08:59 Not Given QDAY [facility] Insulin Human Lispro 0 unit 09/10/25 11:30 09/11/25 07:23 Insulin Lispro (Admelog) 1 Unit/0.01 Ml Unit SC 10/10/25 11:29 Not Given [facility] Protocol Lidocaine HCl 15 ml 09/10/25 11:30 09/11/25 09:13 Lidocaine Viscous 2% 15 Ml Udc PO 10/10/25 11:29 Not Given [facility] Lisinopril 5 mg 09/09/25 09:00 09/11/25 09:13 Lisinopril 2.5 Mg Tablet PO 10/09/25 08:59 Not Given QDAY [facility] Multivitamins 1 tab 09/10/25 09:00 09/11/25 09:12 Multivitamins Tablet PO 10/10/25 08:59 Not Given QDAY [facility] Oxycodone/Acetaminophen 1 tab 09/08/25 18:40 09/11/25 09:17 Oxycodone/Apap 5/325 Tablet PO 09/13/25 18:39 1 tab Q6H PRN Administration PAIN SCALE 4-10(Mod-Sev Pantoprazole Sodium 40 mg 09/10/25 09:00 09/11/25 09:10 Pantoprazole Inj 40 Mg Vial IVP 10/10/25 08:59 40 mg QDAY [facility] Administration Sennosides 1 tab 09/08/25 18:40 Senna Tablet PO 10/08/25 18:39 QDAY PRN constipation Protocol Sodium Hypochlorite 473 ml 09/09/25 21:00 09/10/25 21:15 Sod Hypochlorite 1/4 Str 473 Ml Btl IRRIG 10/09/25 20:59 1 applicatio HS DEWAYNE Administration Sucralfate 1 gm 09/09/25 14:00 09/11/25 05:24 Sucralfate 1 Gm Tablet PO 10/09/25 13:59 Not Given TID DEWAYNE Zinc Sulfate 220 mg 09/10/25 09:00 09/11/25 09:13 Zinc Sulfate 220 Mg Capsule PO 09/24/25 08:59 Not Given QDAY [facility] Plan 65-year-old female patient with significant medical history for endometrial carcinoma SP hysterectomy and bilateral salpingo oophorectomy ([facility] 2016), SP radiation and chemotherapy (until 2021), SP ileostomy (rectovaginal fistula in 2022), HLD, PAD SP right AKA and chronic indwelling Michel catheter (since 2022) bedbound chronic left heel ulcer x 1 year, followed by interlibrary loan specialist, presents with epigastric pain and left chest pain radiating to back x 2 months. ?Admitted worsening pain since last admission 09/01, recently ran out of oxycodone 5mg at home. ?Reported improvement on left lower extremity wound with wound nurse. Nephrology was consulted for hyponatremia. (1) Hyponatremia - stable Status: Acute Assessment and plan: Hypovolemic hyponatremia. Agree with normal saline. Patient has significant GI losses. Will monitor closely. Urine output in the past 24 hours 1700 cc. Sodium 128, OSM 260 Plan: ? Gentle hydration with IV fluids (2) Diarrhea: Status: Acute Assessment and plan: So far workup for WBC negative. Patient seems to have dumping syndrome. (3) Sacral decubitus ulcer: Status: Acute Assessment and plan: Wound care (4) Lower extremity ulceration: Status: Acute Assessment and plan: Wound care (5) Diabetes: Status: Acute Assessment and plan: 1. Check blood sugars twice daily, log them and bring them back with the next visit. 2. is blood sugars above 400 or less than 80, call M.D. 3. Stay active and physically fit 4. Comply with diet and medications 5. Low carbohydrate diet Was on insulin at home Thank you for the opportunity to participate in Mrs. Elliott's care Plan of care discussed with Attending Dr. Nj Carlin MD PGY 2 Disclaimer: This note was dictated by speech recognition. Minor errors in residential pest control technician may be present due to voice recognition software. Attending Provider Attestation/Addendum Patient currently seen and examined with resident physician Dr. Carlin. Note reviewed, agree with findings and recommendations. Patient currently seen in medical floor. Sodium seems to be better. Continue with regular diet. Off IV fluids. Patient with Colostomy-formed stool Sodium 128.
[2025-09-11 11:32] LABS: Hematocrit 22.6 % (36.0-46.0)
[2025-09-11 11:34] LABS: Hemoglobin 7.3 g/dL (12.0-16.0)
[2025-09-11] MEDS: SODIUM CHLORIDE 0.9% 1000 ML 1,000 ML 75 ML IV (11:38)
[2025-09-11 11:47] LABS: Sodium 131 mMol/L (136-145)
--- NOTE | 2025-09-11 14:36 | PC.SS ---
rounding: pending EDG
--- NOTE | 2025-09-11 15:04 | PC.NURSE ---
Per Dr. Lopez, transfuse blood after procedure.
--- NOTE | 2025-09-11 16:04 | SUR.PHASEI ---
Taken to room 354 via gurney by Olivier LEON. No c/o pain or discomfort. No cough, no s/o distress. Resting with eyes open responding appropriately to questions and commands.
--- NOTE | 2025-09-11 16:56 | PC.NURSE ---
Blood transfusion initiated at this time.
[2025-09-11] MEDS: ONDANSETRON INJ 2 MG/ML INJ 2 ML 4 MG IVP (17:17)
[2025-09-11 22:22] LABS: Hematocrit 27.0 % (36.0-46.0); Hemoglobin 9.1 g/dL (12.0-16.0)
[2025-09-12] VITALS (9 sets, daily range): BP systolic 141–175; BP diastolic 54–70; PULSE 70–88; RESP 16–99; TEMP 36.2–37.1; O2SAT 93–99
[2025-09-12] MEDS: PIPER/TAZO INJ 4.5 GM in SODIUM CHLORIDE 0.9% (POP) 100 ML IV ×4 (05:32→23:41)
[2025-09-12 06:17] LABS: Basophils # (Auto) 0.1 Thou/mm3 (0.0-0.2); Basophils % (Auto) 0 % (0-2.5); Eosinophils # (Auto) 0.4 Thou/mm3 (0.0-0.5); Eosinophils % (Auto) 3 % (0-10); Hematocrit 24.6 % (36.0-46.0); Immature Granulocytes Auto 0.06 Thou/mm3 (0.00-0.00); Lymphocytes # (Auto) 2.0 Thou/mm3 (1.0-4.8); Lymphocytes % (Auto) 14 % (10-50); Mean Corpuscular HGB Conc 33.3 g/dl (31.0-37.0); Mean Corpuscular Hemoglobin 28.9 pg (25.0-35.0); Mean Corpuscular Volume 87 fL (80-100); Monocytes # (Auto) 1.0 Thou/mm3 (0.0-0.8); Monocytes % (Auto) 7 % (0-12); Neutrophils # (Auto) 10.7 Thou/mm3 (1.8-7.7); Neutrophils % (Auto) 75 % (37-80); Nucleated Red Blood Cell # 0.00 Thou/mm3 (0.00-0.00); Nucleated Red Blood Cell % 0 /100 WBC (0); Platelet Count 395 Thou/mm3 (140-440); RDW Standard Deviation 41.9 fL (36.4-46.3); Red Blood Count 2.84 Miln/mm3 (4.00-5.20); White Blood Count 14.2 Thou/mm3 (3.6-11.0)
[2025-09-12 06:48] LABS: Hemoglobin 8.2 g/dL (12.0-16.0)
[2025-09-12 06:54] LABS: Alanine Aminotransferase 7 U/L (10-49); Albumin, Serum 3.2 gm/dL (3.4-4.8); Albumin/Globulin Ratio 1.2 (1.2-2.2); Alkaline Phosphatase 106 U/L (46-116); Anion Gap 8 (7-16); Aspartate Amino Transferase 14 U/L (0-34); BUN/Creatinine Ratio 6 Ratio (12-20); Bilirubin,Total 0.3 mg/dL (0.3-1.2); Blood Urea Nitrogen < 5 mg/dL (9-23); Calcium 8.0 mg/dL (8.3-10.6); Calcium (Corrected) 8.6 mg/dL (8.5-10.1); Carbon Dioxide 21.6 mMol/L (20.0-31.0); Chloride 103 mMol/L (98-107); Creatinine (Component) 0.8 mg/dL (0.6-1.3); Estimated Creatinine Clearance 66.4 mL/min (>60); Globulin 2.6 gm/dL (2.3-3.5); Glucose 137 mg/dL (74-106); Magnesium 2.1 mg/dL (1.6-2.6); Osmolality,Calculated 265 (275-295); Phosphorous 2.5 mg/dL (2.4-5.1); Potassium 4.0 mMol/L (3.4-5.1); Sodium 133 mMol/L (136-145); Total Protein 5.8 gm/dL (5.7-8.2); eGFR > 60 See Note
[2025-09-12] MEDS: LIDOCAINE VISCOUS 2% 15 ML UDC PO (07:28)
--- NOTE | 2025-09-12 08:47 | ESPR_ITS ---
Documentation for date of: 09/12/25 Subjective Subjective Interval history: Ms. 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 ?Admitted worsening pain since last admission 09/01/2025, recently ran out of oxycodone 5mg at home. Patient also stated she has decubitus wound. Patient also has sacral ulcer with osteomyelitis and 12/2024 . Admits having significant loose stools for the last 2 weeks. Decreased p.o. intake. Medications at home included vitamin C, Lipitor, Benadryl, vitamin D, Pepcid, iron, gabapentin, Lantus, Humalog, methocarbamol, Nephro-Jerri, Percocet, simethicone In the emergency department blood pressure was elevated at 171/91. Labs showed white count 22.9, hemoglobin 10, platelets 628. Coags normal. Sodium 118, potassium 4.6, creatinine 0.6, blood sugar 194, uric acid 3.6, LFTs normal, alk phos 155, troponin normal, albumin 4.3 urinalysis shows significant pyuria stool for white cells negative. Abdominal pelvic CT scan showed mass involving the upper bladder gallbladder ultrasound showed multiple gallstones with no acute cholecystitis. Chest x-ray was negative. Renal consultation requested for hyponatremia. 09/09/2025 sodium seems to be better at 126. Patient still having a lot of loose stools from the colostomy. WBC stool negative. Continue with half NS. 09/10/2025 : Patient seen and examined at bedside this a.m. Complains of feeling thirsty.Urine output in the past 24 hours 2400 cc. Sodium 124, OSM 254. Increased maintenance normal saline to 100 cc/h, discontinued fluid restriction and cardiac restrictions. 09/11/2025: Patient seen and examined at bedside this morning. Complains of generalized weakness and fatigue. Urine output 1700 cc in past 24 hours. Continue hydration with IV fluids. Scheduled for colonoscopy today once cleared. 09/12/2025: Patient seen and examined at bedside. Reports feeling better, improved weakness and fatigue. Pain from R AKA. Urine output 2.3L 24h. Sodium 133 following 1L of NS yesterday afternoon. No need for continued IVF. Exam Vital Signs Temp Pulse Resp BP Pulse Ox O2 Del Method 97.4 F 79 16 164/65 H 99 Room Air 09/12/25 08:00 09/12/25 08:00 09/12/25 08:00 09/12/25 08:00 09/12/25 08:00 09/12/25 04:00 Narrative Exam GENERAL APPEARANCE: Patient currently seen in medical floor, sitting up comfortably in bed. NECK: Neck supple, no JVD or bruit CARDIOVASCULAR: Heart regular, no murmurs LUNGS/CHEST: Chest clear to auscultation. No rales, rhonchi, wheezing ABDOMEN: Soft, nontender, nondistended. No masses. Normal bowel sounds. ++ Colostomy?formed stool EXTREMITIES: No edema, clubbing or cyanosis. SKIN: Left heel ulcer and is wrapped MUSCULOSKELETAL: Right AKA NEUROLOGICAL : No neurological deficits Objective Labs 09/12/25 06:02 09/12/25 06:02 Labs: Laboratory Results - last 24 hr 09/11/25 09/11/25 09/12/25 11:18 22:17 06:02 WBC 14.2 H RBC 2.84 L Hgb 7.3 L 9.1 L D 8.2 L Hct 22.6 L 27.0 L 24.6 L MCV 87 MCH 28.9 MCHC 33.3 RDW Std Deviation 41.9 Plt Count 395 Neut % (Auto) 75 Lymph % (Auto) 14 Stewart % (Auto) 7 Eos % (Auto) 3 Baso % (Auto) 0 Neut # (Auto) 10.7 H Lymph # (Auto) 2.0 Stewart # (Auto) 1.0 H Eos # (Auto) 0.4 Baso # (Auto) 0.1 Immature Gran # (Auto) 0.06 H Absolute Nucleated RBC 0.00 Immature Gran % 0 Nucleated RBC % 0 Sodium 131 L 133 L Potassium 4.0 Chloride 103 Carbon Dioxide 21.6 Anion Gap 8 BUN < 5 L Creatinine 0.8 Estim Creat Clear Calc 66.4 eGFR > 60 BUN/Creatinine Ratio 6 L Glucose 137 H D Calculated Osmolality 265 L Calcium 8.0 L Corrected Calcium 8.6 Phosphorus 2.5 Magnesium 2.1 Total Bilirubin 0.3 AST 14 ALT 7 L Alkaline Phosphatase 106 Total Protein 5.8 Albumin 3.2 L Globulin 2.6 Albumin/Globulin Ratio 1.2 Blood Type O Positive Antibody Screen NEGATIVE Crossmatch See Detail Blood Bank Wristband ID Yes Quality Measures Quality Measures VTE prophylaxis Advance care planning discussed with:: patient Assessment & Plan Assessment Current Active Medications: Generic Name Dose Route Start Last Admin Trade Name Freq PRN Reason Stop Dose Admin Acetaminophen 650 mg 09/08/25 18:40 Acetaminophen 325 Mg Tablet PO 10/08/25 18:39 Q6H PRN Fever >100.4 and Pain 1-3 Amlodipine Besylate 10 mg 09/12/25 09:00 09/12/25 08:36 Amlodipine Besylate 5 Mg Tablet PO 10/12/25 08:59 Not Given QDAY [facility] Ascorbic Acid 500 mg 09/09/25 21:00 09/12/25 08:36 Ascorbic Acid 250 Mg Tablet PO 10/09/25 20:59 Not Given BID DEWAYNE Dextrose 25 ml 09/10/25 07:37 Dextrose 50%-Water Inj 50 Ml Syringe IV 10/10/25 07:36 Q15MIN PRN BG 50-70 responsive npo pt Dextrose 50 ml 09/10/25 07:37 Dextrose 50%-Water Inj 50 Ml Syringe IV 10/10/25 07:36 Q15MIN PRN BG <50 OR BG <70 & pt unresponsive Gabapentin 300 mg 09/09/25 09:45 09/12/25 05:57 Gabapentin 300 Mg Capsule PO 10/09/25 09:44 Not Given TID DEWAYNE Glucagon 1 mg 09/10/25 07:37 Glucagon Inj 1 Mg Vial IM Q15MIN PRN BG <70, and no IV access Heparin Sodium (Porcine) 5,000 unit 09/08/25 18:45 09/12/25 06:21 Heparin Sod Inj 5000 Unit/Ml Vial SC 09/22/25 18:44 Not Given Q12H [facility] Hydralazine HCl 10 mg 09/09/25 08:46 Hydralazine Hcl 10 Mg Tablet PO 10/09/25 08:45 Q6H PRN SBP>160 hold if SBP<140 HR>110 Piperacillin Sod/Tazobactam 100 mls @ 200 mls/hr 09/08/25 18:43 09/12/25 06:02 Sod 4.5 gm/ Sodium Chloride IV 09/15/25 18:42 Infused Q6HR [facility] Infusion Protocol Insulin Degludec 20 unit 09/10/25 09:00 09/12/25 08:36 Insulin Degludec 5 Unit/0.05 Ml (Per 5 Units) SC 10/10/25 08:59 Not Given QDAY [facility] Insulin Human Lispro 0 unit 09/10/25 11:30 09/12/25 07:28 Insulin Lispro (Admelog) 1 Unit/0.01 Ml Unit SC 10/10/25 11:29 Not Given [facility] Protocol Lidocaine HCl 15 ml 09/10/25 11:30 09/12/25 07:28 Lidocaine Viscous 2% 15 Ml Udc PO 10/10/25 11:29 15 ml AC DEWAYNE Administration Multivitamins 1 tab 09/10/25 09:00 09/12/25 08:36 Multivitamins Tablet PO 10/10/25 08:59 Not Given QDAY [facility] Oxycodone/Acetaminophen 1 tab 09/08/25 18:40 09/11/25 23:42 Oxycodone/Apap 5/325 Tablet PO 09/13/25 18:39 1 tab Q6H PRN Administration PAIN SCALE 4-10(Mod-Sev Pantoprazole Sodium 40 mg 09/10/25 09:00 09/12/25 08:36 Pantoprazole Inj 40 Mg Vial IVP 10/10/25 08:59 Not Given QDAY [facility] Sennosides 1 tab 09/08/25 18:40 Senna Tablet PO 10/08/25 18:39 QDAY PRN constipation Protocol Sodium Hypochlorite 473 ml 09/09/25 21:00 09/11/25 22:25 Sod Hypochlorite 1/4 Str 473 Ml Btl IRRIG 10/09/25 20:59 Not Given HS [facility] Sucralfate 1 gm 09/09/25 14:00 09/12/25 05:57 Sucralfate 1 Gm Tablet PO 10/09/25 13:59 Not Given TID DEWAYNE Zinc Sulfate 220 mg 09/10/25 09:00 09/12/25 08:36 Zinc Sulfate 220 Mg Capsule PO 09/24/25 08:59 Not Given QDAY [facility] Plan 65-year-old female patient with significant medical history for endometrial carcinoma SP hysterectomy and bilateral salpingo oophorectomy ([facility] 2016), SP radiation and chemotherapy (until 2021), SP ileostomy (rectovaginal fistula in 2022), HLD, PAD SP right AKA and chronic indwelling Michel catheter (since 2022) bedbound chronic left heel ulcer x 1 year, followed by pensions retirement plan specialist, presents with epigastric pain and left chest pain radiating to back x 2 months. ?Admitted worsening pain since last admission 09/01, recently ran out of oxycodone 5mg at home. ?Reported improvement on left lower extremity wound with wound nurse. Nephrology was consulted for hyponatremia. (1) Hyponatremia - improved Status: Acute Assessment and plan: Hypovolemic hyponatremia. Agree with normal saline. Patient had significant GI losses. Will monitor closely. Urine output in the past 24 hours 2300 cc. Sodium 133. Plan: ? CTM Na - IVF as needed (2) Diarrhea: Status: Acute Assessment and plan: So far workup for WBC negative. Patient seems to have dumping syndrome. (3) Sacral decubitus ulcer: Status: Acute Assessment and plan: Wound care (4) Lower extremity ulceration: Status: Acute Assessment and plan: Wound care (5) Diabetes: Status: Acute Assessment and plan: Degludac 20u QD. SSI ESBL UTI 09/08 UCx grew ESBL UTI Plan: - Zosyn (09/08-09/15) Thank you for the opportunity to participate in Mrs. Elliott's care Plan of care discussed with Attending Dr. Nj Pablo, DO Internal Medicine PGY-1 Attending Provider Attestation/Addendum Patient currently seen and examined with resident physician Dr. Pablo. Note reviewed, agree with findings and recommendations. Patient currently seen in medical floor. Sodium seems to be better. Continue with regular diet. Off IV fluids. Patient with Colostomy-formed stool Sodium 128.
--- NOTE | 2025-09-12 09:03 | PC.SS ---
Follow up note: Hida scan pending. Pt will return home upon dc.
--- NOTE | 2025-09-12 10:46 | ESPR_ITS ---
<Statement entered by Carrillo Florentino MD - 09/12/25 18:43> Patient was seen and examined at bedside. I agree on the assessment and plan on this note as documented by resident Dr Won Gonzalez DO PGY1. 65-year-old female with past medical history as below admitted for abdominal pain, patient continues to complain of dysphagia and pain, GI was consulted patient is currently pending HIDA scan. Will continue with IV Zosyn for patient's urinary tract infection management. Continue home medications, will start patient on Reglan 5 mg IV every 6 hours. Case discussed with attending Dr. Carrillo Florentino MD PGY-2 Documentation for date of: 09/12/25 Subjective Subjective Interval history: EGD(09/11/2025) showed esophagitis, gastritis, and gastric motility disorder. HIDA scan is currently pending. Patient still have diffuse abdominal pain as well as epigastric pain. No Overnight events. Labs reviewed and patient examined at the bedside. Denies chest pain, palpation, SOB, N/V, fevers or chills. Exam Vital Signs Temp Pulse Resp BP Pulse Ox O2 Del Method 97.4 F 79 16 164/65 H 99 Room Air 09/12/25 08:00 09/12/25 08:00 09/12/25 08:00 09/12/25 08:00 09/12/25 08:00 09/12/25 04:00 Narrative Exam General: No acute distress, well nourished, AAO x4 Eye: PERRL, EOMI, normal conjunctiva, no scleral icterus HENT: Normocephalic, atraumatic, hearing intact to conversation at normal volume, moist oral mucosa Neck: Supple, non-tender, no JVD, no lymphadenopathy Lungs: Non-labored respirations, symmetric chest rise, Clear to auscultate bilaterally, No wheezing, rhonchi, crackles Heart: Peripheral pulses intact bilaterally, Regular Rate and Rhythm. Abdomen: Soft, tender to palpation epigastric, non-distended, no palpable masses Musculoskeletal: Normal range of motion and strength, healed right AKA, LLE wrapped in kerlix, functional right ileostomy bag Skin: Skin is warm, dry, no rashes or lesions. Psychiatric: Cooperative, appropriate mood and affect, Awake and alert, not agitated Neuro: Cranial nerves II-XII grossly intact. Strength 5/5 throughout. Sensations intact to light touch. Objective Labs 09/13/25 04:50 09/13/25 04:50 Labs: Laboratory Results - last 24 hr 09/11/25 09/11/25 09/12/25 11:18 22:17 06:02 WBC 14.2 H RBC 2.84 L Hgb 7.3 L 9.1 L D 8.2 L Hct 22.6 L 27.0 L 24.6 L MCV 87 MCH 28.9 MCHC 33.3 RDW Std Deviation 41.9 Plt Count 395 Neut % (Auto) 75 Lymph % (Auto) 14 [place] % (Auto) 7 Eos % (Auto) 3 Baso % (Auto) 0 Neut # (Auto) 10.7 H Lymph # (Auto) 2.0 [place] # (Auto) 1.0 H Eos # (Auto) 0.4 Baso # (Auto) 0.1 Immature Gran # (Auto) 0.06 H Absolute Nucleated RBC 0.00 Immature Gran % 0 Nucleated RBC % 0 Sodium 131 L 133 L Potassium 4.0 Chloride 103 Carbon Dioxide 21.6 Anion Gap 8 BUN < 5 L Creatinine 0.8 Estim Creat Clear Calc 66.4 eGFR > 60 BUN/Creatinine Ratio 6 L Glucose 137 H D Calculated Osmolality 265 L Calcium 8.0 L Corrected Calcium 8.6 Phosphorus 2.5 Magnesium 2.1 Total Bilirubin 0.3 AST 14 ALT 7 L Alkaline Phosphatase 106 Total Protein 5.8 Albumin 3.2 L Globulin 2.6 Albumin/Globulin Ratio 1.2 Blood Type O Positive Antibody Screen NEGATIVE Crossmatch See Detail Blood Bank Wristband ID Yes Quality Measures Quality Measures VTE prophylaxis Advance care planning discussed with:: patient and other Assessment & Plan Assessment Current Active Medications: Generic Name Dose Route Start Last Admin Trade Name Freq PRN Reason Stop Dose Admin Acetaminophen 650 mg 09/08/25 18:40 Acetaminophen 325 Mg Tablet PO 10/08/25 18:39 Q6H PRN Fever >100.4 and Pain 1-3 Amlodipine Besylate 10 mg 09/12/25 09:00 09/12/25 08:36 Amlodipine Besylate 5 Mg Tablet PO 10/12/25 08:59 Not Given QDAY [facility] Ascorbic Acid 500 mg 09/09/25 21:00 09/12/25 08:36 Ascorbic Acid 250 Mg Tablet PO 10/09/25 20:59 Not Given BID DEWAYNE Dextrose 25 ml 09/10/25 07:37 Dextrose 50%-Water Inj 50 Ml Syringe IV 10/10/25 07:36 Q15MIN PRN BG 50-70 responsive npo pt Dextrose 50 ml 09/10/25 07:37 Dextrose 50%-Water Inj 50 Ml Syringe IV 10/10/25 07:36 Q15MIN PRN BG <50 OR BG <70 & pt unresponsive Gabapentin 300 mg 09/09/25 09:45 09/12/25 05:57 Gabapentin 300 Mg Capsule PO 10/09/25 09:44 Not Given TID DEWAYNE Glucagon 1 mg 09/10/25 07:37 Glucagon Inj 1 Mg Vial IM Q15MIN PRN BG <70, and no IV access Heparin Sodium (Porcine) 5,000 unit 09/08/25 18:45 09/12/25 06:21 Heparin Sod Inj 5000 Unit/Ml Vial SC 09/22/25 18:44 Not Given Q12H [facility] Hydralazine HCl 10 mg 09/09/25 08:46 Hydralazine Hcl 10 Mg Tablet PO 10/09/25 08:45 Q6H PRN SBP>160 hold if SBP<140 HR>110 Piperacillin Sod/Tazobactam 100 mls @ 200 mls/hr 09/08/25 18:43 09/12/25 06:02 Sod 4.5 gm/ Sodium Chloride IV 09/15/25 18:42 Infused Q6HR [facility] Infusion Protocol Insulin Degludec 20 unit 09/10/25 09:00 09/12/25 08:36 Insulin Degludec 5 Unit/0.05 Ml (Per 5 Units) SC 10/10/25 08:59 Not Given QDAY [facility] Insulin Human Lispro 0 unit 09/10/25 11:30 09/12/25 07:28 Insulin Lispro (Admelog) 1 Unit/0.01 Ml Unit SC 10/10/25 11:29 Not Given AC [facility] Protocol Lidocaine HCl 15 ml 09/10/25 11:30 09/12/25 07:28 Lidocaine Viscous 2% 15 Ml Udc PO 10/10/25 11:29 15 ml AC [facility] Administration Multivitamins 1 tab 09/10/25 09:00 09/12/25 08:36 Multivitamins Tablet PO 10/10/25 08:59 Not Given QDAY [facility] Oxycodone/Acetaminophen 1 tab 09/08/25 18:40 09/12/25 09:03 Oxycodone/Apap 5/325 Tablet PO 09/13/25 18:39 1 tab Q6H PRN Administration PAIN SCALE 4-10(Mod-Sev Pantoprazole Sodium 40 mg 09/10/25 09:00 09/12/25 08:36 Pantoprazole Inj 40 Mg Vial IVP 10/10/25 08:59 Not Given QDAY [facility] Sennosides 1 tab 09/08/25 18:40 Senna Tablet PO 10/08/25 18:39 QDAY PRN constipation Protocol Sodium Hypochlorite 473 ml 09/09/25 21:00 09/11/25 22:25 Sod Hypochlorite 1/4 Str 473 Ml Btl IRRIG 10/09/25 20:59 Not Given HS [facility] Sucralfate 1 gm 09/09/25 14:00 09/12/25 05:57 Sucralfate 1 Gm Tablet PO 10/09/25 13:59 Not Given TID [facility] Zinc Sulfate 220 mg 09/10/25 09:00 09/12/25 08:36 Zinc Sulfate 220 Mg Capsule PO 09/24/25 08:59 Not Given QDAY [facility] Plan 65-year-old female patient with significant medical history for endometrial carcinoma SP hysterectomy and bilateral salpingo oophorectomy ([facility] 2016), SP radiation and chemotherapy (until 2021), SP ileostomy (rectovaginal fistula in 2022), HLD, PAD SP right AKA and chronic indwelling Michel catheter (since 2022) bedbound chronic left heel ulcer x 1 year, followed by therapeutic specialist, presents with epigastric pain and left chest pain radiating to back x 2 months. ?Admitted for management of eletrolyte imbalance and worsening pain since last admission 09/01, recently ran out of oxycodone 5mg at home. # Abdominal pain #GI bleed - r/o # Dumping syndrome-Resolving #Anemia,requiring blood transfusion- Resolving History of abdominal pain x 2 months. EKG Troponin negative. Previous EGD in 03/2025 showed negative H. pylori, esophagitis and gastritis. Will start GI cocktail trial today. Patient concerned for C.diff given watery output from ileostomy bag which seemed more formed and has not changed according to patient. No indication for C. diff testing at this time. Consult nephrology, Dr. Mauro, appreciate recs: Normal saline if hyponatremic, significant GI losses, likely due to dumping syndrome. -09/11: Hgb 7.1, no signs of bleeding. after 1 unit of pRBC transfusion, Hgb improved to 9.1 -EGD(09/11/2025) showed esophagitis, gastritis, and gastric motility disorder. Plan: -GI, Dr. Lopez, consulted, appreciate recs: HIDA scan without pharmaceutical to visualize gallbladder, if not visualize recommend lap rhett, -Pending HIDA scan -GI cocktail and sucralfate -Continue home Percocet 5mg # Urinary tract infection # Chronic Michel catheter WBC 22.9.? History of ESBL recurrent UTI. 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 ?CTAP showed bladder mass. Blood culture 09/08 no growth to date.? Urine culture 09/08 ESBL positive. Currently on Zosyn Plan: - Continue Zosyn (09/08-09/15) - Continue to follow up outpatient with Urologist, Dr. Rand # History of endometrial carcinoma # Bladder mass Status post hysterectomy and bilateral salpingo-oophorectomy radiation chemo. CTAP positive upper bladder 38 mm, consistent with bladder carcinoma, recommend urology consult and cystoscopy. Pathology 02/09/25 negative for dysplasia and malignancy. Plan: - Continue to follow up outpatient with Urologist, Dr. Rand #Hypertension No HTN home meds Plan: -Continue Lisinopril 5mg QD -Continue Hydralazine 10mg Q6H prn # Asymptomatic hyperosmolar hypovolemic hyponatremia-Resolving. Patient is AO x 4.? On admission sodium 118, improved to 121 after 1L NS. ?Patient is currently asymptomatic.? 09/11: Sodium improved 128 09/12: 133 Plan: -Per Nephrology recommendations, discontinued IVF NS -Consult nephrology, Dr. Mauor, appreciate recs. ? -Discontinue fluid restriction Health Maintenance: Code status: DNR DVT prophylaxis: Heparin GI prophylaxis: Protonix Diet: Cardiac Michel: yes Lines: PIV Supplemental O2: None Disposition: Medsur bed Assessment and plan discussed with my attending physician Dr. Ang and Dr. Florentino (PGY-2) Dr. Gonzalez (PGY-1) - Internal medicine resident Attending Provider Attestation/Addendum I, Mariluz Ang DO, attest that I was physically present for the [place] portions of the service and evaluated the patient with the resident and I reviewed and discussed the case with the resident and agree with the resident's findings and plans of care as documented above Patient seen and evaluated this AM. Patient was irritated upon my arrival as she states that there are many doctors visiting and has been confusing for her. Patient states she has been unable to eat and has pain in her abdomen. Abdomen is otherwise soft, nondistended and nontender on palpation. Colostomy is functioning well. Pending HIDA scan today. Patient underwent EGD yesterday and results of gastritis, esophagitis and evidence of gastric motility disorder were discussed with patient. She states that she has been on several different regimens for gastritis without any improvement of her symptoms. Will start patient on reglan and advance diet as tolerated following HIDA scan. Patient is otherwise stable. No acute distress.
[2025-09-12] MEDS: METOCLOPRAMIDE INJ 5 MG/ML VIAL 2 ML IVP ×2 (17:58→23:41)
--- NOTE | 2025-09-12 18:08 | ESPR_ITS ---
Documentation for date of: 09/12/25 Subjective Subjective Interval history: Patient evaluated Hemoglobin hematocrit 8.2 and 24.6 Upper endoscopy showed gastritis and esophagitis biopsies are pending Exam Vital Signs Temp Pulse Resp BP Pulse Ox O2 Del Method 97.4 F 88 17 175/58 H 93 L Room Air 09/12/25 16:00 09/12/25 16:00 09/12/25 16:00 09/12/25 16:00 09/12/25 16:00 09/12/25 16:00 Objective Labs 09/12/25 06:02 09/12/25 06:02 Labs: Laboratory Results - last 24 hr 09/11/25 09/11/25 09/12/25 11:18 22:17 06:02 WBC 14.2 H RBC 2.84 L Hgb 9.1 L D 8.2 L Hct 27.0 L 24.6 L MCV 87 MCH 28.9 MCHC 33.3 RDW Std Deviation 41.9 Plt Count 395 Neut % (Auto) 75 Lymph % (Auto) 14 [place] % (Auto) 7 Eos % (Auto) 3 Baso % (Auto) 0 Neut # (Auto) 10.7 H Lymph # (Auto) 2.0 [place] # (Auto) 1.0 H Eos # (Auto) 0.4 Baso # (Auto) 0.1 Immature Gran # (Auto) 0.06 H Absolute Nucleated RBC 0.00 Immature Gran % 0 Nucleated RBC % 0 Sodium 133 L Potassium 4.0 Chloride 103 Carbon Dioxide 21.6 Anion Gap 8 BUN < 5 L Creatinine 0.8 Estim Creat Clear Calc 66.4 eGFR > 60 BUN/Creatinine Ratio 6 L Glucose 137 H D Calculated Osmolality 265 L Calcium 8.0 L Corrected Calcium 8.6 Phosphorus 2.5 Magnesium 2.1 Total Bilirubin 0.3 AST 14 ALT 7 L Alkaline Phosphatase 106 Total Protein 5.8 Albumin 3.2 L Globulin 2.6 Albumin/Globulin Ratio 1.2 Crossmatch See Detail Impressions Impression: Gastritis esophagitis Anemia multifactorial Continue present treatment Assessment & Plan A&P Narrative # Atypical chest pain # Epigastric abdominal pain # Cholelithiasis very symptomatic or asymptomatic not clear Suggestions HIDA scan without the pharmaceutical to see if the gallbladder is functioning or nonfunctioning If nonvisualization of the gallbladder then I would recommend laparoscopic cholecystectomy Repeat endoscopy scheduled for tomorrow Other medical problems include Endometrial carcinoma status post hysterectomy bilateral salpingo oophorectomy followed by radiation and chemotherapy 2026 at [facility] Rectovaginal fistula requiring colostomy Hyperlipidemia Peripheral artery disease status post right AKA Chronic Michel catheter Rectal wall thickening Thank you once again for the opportunity to participate in the care of this patient Time Spent With Patient Time: Total time spent is greater than 50% in coordination of care (as documented) at patient's floor/unit and/or counseling patient:
[2025-09-13] VITALS: BP 158/49; PULSE 77; RESP 18; TEMP 36.5; O2SAT 98
[2025-09-13 04:00] VITALS: BP 157/80; PULSE 75; RESP 18; TEMP 36.5; O2SAT 99
[2025-09-13] MEDS: PIPER/TAZO INJ 4.5 GM in SODIUM CHLORIDE 0.9% (POP) 100 ML IV ×2 (05:14→11:27)
[2025-09-13 05:46] LABS: Basophils # (Auto) 0.1 Thou/mm3 (0.0-0.2); Basophils % (Auto) 0 % (0-2.5); Eosinophils # (Auto) 0.4 Thou/mm3 (0.0-0.5); Eosinophils % (Auto) 3 % (0-10); Hematocrit 24.3 % (36.0-46.0); Immature Granulocytes Auto 0.07 Thou/mm3 (0.00-0.00); Lymphocytes # (Auto) 2.3 Thou/mm3 (1.0-4.8); Lymphocytes % (Auto) 16 % (10-50); Mean Corpuscular HGB Conc 34.2 g/dl (31.0-37.0); Mean Corpuscular Hemoglobin 29.9 pg (25.0-35.0); Mean Corpuscular Volume 87 fL (80-100); Monocytes # (Auto) 1.2 Thou/mm3 (0.0-0.8); Monocytes % (Auto) 9 % (0-12); Neutrophils # (Auto) 10.3 Thou/mm3 (1.8-7.7); Neutrophils % (Auto) 72 % (37-80); Nucleated Red Blood Cell # 0.00 Thou/mm3 (0.00-0.00); Nucleated Red Blood Cell % 0 /100 WBC (0); Platelet Count 417 Thou/mm3 (140-440); RDW Standard Deviation 43.1 fL (36.4-46.3); Red Blood Count 2.78 Miln/mm3 (4.00-5.20); White Blood Count 14.4 Thou/mm3 (3.6-11.0)
[2025-09-13 06:23] LABS: Alanine Aminotransferase 8 U/L (10-49); Albumin, Serum 3.3 gm/dL (3.4-4.8); Albumin/Globulin Ratio 1.3 (1.2-2.2); Anion Gap 10 (7-16); Aspartate Amino Transferase 14 U/L (0-34); BUN/Creatinine Ratio 7 Ratio (12-20); Bilirubin,Total 0.3 mg/dL (0.3-1.2); Blood Urea Nitrogen 5 mg/dL (9-23); Calcium 8.6 mg/dL (8.3-10.6); Calcium (Corrected) 9.2 mg/dL (8.5-10.1); Carbon Dioxide 24.3 mMol/L (20.0-31.0); Chloride 102 mMol/L (98-107); Creatinine (Component) 0.7 mg/dL (0.6-1.3); Estimated Creatinine Clearance 75.9 mL/min (>60); Globulin 2.6 gm/dL (2.3-3.5); Glucose 95 mg/dL (74-106); Magnesium 1.6 mg/dL (1.6-2.6); Osmolality,Calculated 269 (275-295); Phosphorous 2.8 mg/dL (2.4-5.1); Potassium 3.9 mMol/L (3.4-5.1); Sodium 136 mMol/L (136-145); Total Protein 5.9 gm/dL (5.7-8.2); eGFR > 60 See Note
[2025-09-13 06:47] LABS: Hemoglobin 8.3 g/dL (12.0-16.0)
[2025-09-13 06:54] LABS: Alkaline Phosphatase 118 U/L (46-116)
[2025-09-13 08:00] VITALS: BP 163/58; PULSE 84; RESP 18; TEMP 36.2; O2SAT 97
--- NOTE | 2025-09-13 09:02 | ESPR_ITS ---
Documentation for date of: 09/13/25 Subjective Subjective Interval history: Ms. Schmid is a 65-year-old lady with significant past medical history of endometrial carcinoma status post total abdominal hysterectomy and oophorectomy ([facility] 2016), SP radiation and chemotherapy (until 2021), SP colostomy with a dumping syndrome (rectovaginal fistula in 2022),DM, HLD, PAD SP right AKA (2021) and chronic indwelling Michel catheter (since 2022) chronic left heel ulcer x 1 year, followed by learning support specialist, bedbound-presents with epigastric pain and left chest pain radiating to back x 2 months. ?Admitted worsening pain since last admission 09/01/2025, recently ran out of oxycodone 5mg at home. Patient also stated she has decubitus wound. Patient also has sacral ulcer with osteomyelitis and 12/2024 . Admits having significant loose stools for the last 2 weeks. Decreased p.o. intake. Medications at home included vitamin C, Lipitor, Benadryl, vitamin D, Pepcid, iron, gabapentin, Lantus, Humalog, methocarbamol, Nephro-Jerri, Percocet, simethicone In the emergency department blood pressure was elevated at 171/91. Labs showed white count 22.9, hemoglobin 10, platelets 628. Coags normal. Sodium 118, potassium 4.6, creatinine 0.6, blood sugar 194, uric acid 3.6, LFTs normal, alk phos 155, troponin normal, albumin 4.3 urinalysis shows significant pyuria stool for white cells negative. Abdominal pelvic CT scan showed mass involving the upper bladder gallbladder ultrasound showed multiple gallstones with no acute cholecystitis. Chest x-ray was negative. Renal consultation requested for hyponatremia. 09/09/2025 sodium seems to be better at 126. Patient still having a lot of loose stools from the colostomy. WBC stool negative. Continue with half NS. 09/10/2025 : Patient seen and examined at bedside this a.m. Complains of feeling thirsty.Urine output in the past 24 hours 2400 cc. Sodium 124, OSM 254. Increased maintenance normal saline to 100 cc/h, discontinued fluid restriction and cardiac restrictions. 09/11/2025: Patient seen and examined at bedside this morning. Complains of generalized weakness and fatigue. Urine output 1700 cc in past 24 hours. Continue hydration with IV fluids. Scheduled for colonoscopy today once cleared. 09/12/2025: Patient seen and examined at bedside. Reports feeling better, improved weakness and fatigue. Pain from R AKA. Urine output 2.3L 24h. Sodium 133 following 1L of NS yesterday afternoon. No need for continued IVF. 09/13/2025: Patient seen and examined at bedside. Reports feeling more fatigued than yesterday. Continued pain from lower extremeties. Urine output 1.6 L 24h. Sodium 136 today. Nephrology will sign off. Exam Vital Signs Temp Pulse Resp BP Pulse Ox O2 Del Method 97.2 F 84 18 163/58 H 97 Room Air 09/13/25 08:00 09/13/25 08:00 09/13/25 08:00 09/13/25 08:00 09/13/25 08:00 09/13/25 08:00 Narrative Exam GENERAL APPEARANCE: Patient currently seen in medical floor, sitting up comfortably in bed. NECK: Neck supple, no JVD or bruit CARDIOVASCULAR: Heart regular, no murmurs LUNGS/CHEST: Chest clear to auscultation. No rales, rhonchi, wheezing ABDOMEN: Soft, nontender, nondistended. No masses. Normal bowel sounds. ++ Colostomy EXTREMITIES: No edema, clubbing or cyanosis. SKIN: Left heel ulcer and is wrapped MUSCULOSKELETAL: Right AKA NEUROLOGICAL : No neurological deficits Objective Labs 09/13/25 04:50 09/13/25 04:50 Labs: Laboratory Results - last 24 hr 09/13/25 04:50 WBC 14.4 H RBC 2.78 L Hgb 8.3 L Hct 24.3 L MCV 87 MCH 29.9 MCHC 34.2 RDW Std Deviation 43.1 Plt Count 417 Neut % (Auto) 72 Lymph % (Auto) 16 [place] % (Auto) 9 Eos % (Auto) 3 Baso % (Auto) 0 Neut # (Auto) 10.3 H Lymph # (Auto) 2.3 [place] # (Auto) 1.2 H Eos # (Auto) 0.4 Baso # (Auto) 0.1 Immature Gran # (Auto) 0.07 H Absolute Nucleated RBC 0.00 Immature Gran % 1 H Nucleated RBC % 0 Sodium 136 Potassium 3.9 Chloride 102 Carbon Dioxide 24.3 Anion Gap 10 BUN 5 L Creatinine 0.7 Estim Creat Clear Calc 75.9 eGFR > 60 BUN/Creatinine Ratio 7 L Glucose 95 Calculated Osmolality 269 L Calcium 8.6 Corrected Calcium 9.2 Phosphorus 2.8 Magnesium 1.6 Total Bilirubin 0.3 AST 14 ALT 8 L Alkaline Phosphatase 118 H Total Protein 5.9 Albumin 3.3 L Globulin 2.6 Albumin/Globulin Ratio 1.3 Quality Measures Quality Measures VTE prophylaxis Advance care planning discussed with:: patient Assessment & Plan Assessment Current Active Medications: Generic Name Dose Route Start Last Admin Trade Name Freq PRN Reason Stop Dose Admin Acetaminophen 650 mg 09/08/25 18:40 Acetaminophen 325 Mg Tablet PO 10/08/25 18:39 Q6H PRN Fever >100.4 and Pain 1-3 Amlodipine Besylate 10 mg 09/12/25 09:00 09/12/25 08:36 Amlodipine Besylate 5 Mg Tablet PO 10/12/25 08:59 Not Given QDAY [facility] Ascorbic Acid 500 mg 09/09/25 21:00 09/12/25 20:47 Ascorbic Acid 250 Mg Tablet PO 10/09/25 20:59 Not Given BID DEWAYNE Dextrose 25 ml 09/10/25 07:37 Dextrose 50%-Water Inj 50 Ml Syringe IV 10/10/25 07:36 Q15MIN PRN BG 50-70 responsive npo pt Dextrose 50 ml 09/10/25 07:37 Dextrose 50%-Water Inj 50 Ml Syringe IV 10/10/25 07:36 Q15MIN PRN BG <50 OR BG <70 & pt unresponsive Gabapentin 300 mg 09/09/25 09:45 09/13/25 05:44 Gabapentin 300 Mg Capsule PO 10/09/25 09:44 Not Given TID DEWAYNE Glucagon 1 mg 09/10/25 07:37 Glucagon Inj 1 Mg Vial IM Q15MIN PRN BG <70, and no IV access Heparin Sodium (Porcine) 5,000 unit 09/08/25 18:45 09/13/25 05:20 Heparin Sod Inj 5000 Unit/Ml Vial SC 09/22/25 18:44 Not Given Q12H [facility] Hydralazine HCl 10 mg 09/09/25 08:46 Hydralazine Hcl 10 Mg Tablet PO 10/09/25 08:45 Q6H PRN SBP>160 hold if SBP<140 HR>110 Piperacillin Sod/Tazobactam 100 mls @ 200 mls/hr 09/08/25 18:43 09/13/25 05:14 Sod 4.5 gm/ Sodium Chloride IV 09/15/25 18:42 200 mls/hr Q6HR [facility] Administration Protocol Insulin Degludec 20 unit 09/10/25 09:00 09/12/25 08:36 Insulin Degludec 5 Unit/0.05 Ml (Per 5 Units) SC 10/10/25 08:59 Not Given QDAY [facility] Insulin Human Lispro 0 unit 09/10/25 11:30 09/12/25 16:31 Insulin Lispro (Admelog) 1 Unit/0.01 Ml Unit SC 10/10/25 11:29 Not Given AC [facility] Protocol Lidocaine HCl 15 ml 09/10/25 11:30 09/12/25 16:37 Lidocaine Viscous 2% 15 Ml Udc PO 10/10/25 11:29 Not Given AC [facility] Metoclopramide HCl 5 mg 09/12/25 18:00 09/13/25 05:21 Metoclopramide Inj 5 Mg/Ml Vial 2 Ml IVP 10/12/25 17:59 Not Given Q6HR [facility] Protocol Multivitamins 1 tab 09/10/25 09:00 09/12/25 08:36 Multivitamins Tablet PO 10/10/25 08:59 Not Given QDAY [facility] Oxycodone/Acetaminophen 1 tab 09/08/25 18:40 09/12/25 23:41 Oxycodone/Apap 5/325 Tablet PO 09/13/25 18:39 1 tab Q6H PRN Administration PAIN SCALE 4-10(Mod-Sev Pantoprazole Sodium 40 mg 09/10/25 09:00 09/12/25 08:36 Pantoprazole Inj 40 Mg Vial IVP 10/10/25 08:59 Not Given QDAY [facility] Sennosides 1 tab 09/08/25 18:40 Senna Tablet PO 10/08/25 18:39 QDAY PRN constipation Protocol Sodium Hypochlorite 473 ml 09/09/25 21:00 09/12/25 22:21 Sod Hypochlorite 1/4 Str 473 Ml Btl IRRIG 10/09/25 20:59 Not Given HS DEW[facility]NE Sucralfate 1 gm 09/09/25 14:00 09/13/25 05:20 Sucralfate 1 Gm Tablet PO 10/09/25 13:59 Not Given TID [facility] Zinc Sulfate 220 mg 09/10/25 09:00 09/12/25 08:36 Zinc Sulfate 220 Mg Capsule PO 09/24/25 08:59 Not Given QDAY [facility] Plan 65-year-old female patient with significant medical history for endometrial carcinoma SP hysterectomy and bilateral salpingo oophorectomy ([facility]), SP radiation and chemotherapy (until 2021), SP ileostomy (rectovaginal fistula in 2022), HLD, PAD SP right AKA and chronic indwelling Michel catheter (since 2022) bedbound chronic left heel ulcer x 1 year, followed by learning support specialist, presents with epigastric pain and left chest pain radiating to back x 2 months. ?Admitted worsening pain since last admission 09/01, recently ran out of oxycodone 5mg at home. ?Reported improvement on left lower extremity wound with wound nurse. Nephrology was consulted for hyponatremia. (1) Hyponatremia - resolved Status: Acute Assessment and plan: Hypovolemic hyponatremia. Agree with normal saline. Patient had significant GI losses. Will monitor closely. Urine output in the past 24 hours 2300 cc. Sodium 133. Plan: ? CTM Na - IVF as needed - Nephrology will sign off (2) Diarrhea: Status: Acute Assessment and plan: So far workup for WBC negative. Patient seems to have dumping syndrome. (3) Sacral decubitus ulcer: Status: Acute Assessment and plan: Wound care (4) Lower extremity ulceration: Status: Acute Assessment and plan: Wound care (5) Diabetes: Status: Acute Assessment and plan: Degludac 20u QD. SSI ESBL UTI 09/08 UCx grew ESBL UTI Plan: - Zosyn (09/08-09/15) Thank you for the opportunity to participate in Mrs. Elliott's care Plan of care discussed with Attending Dr. Nj Pablo, DO Internal Medicine PGY-1 Attending Provider Attestation/Addendum Patient currently seen and examined with resident physician Dr. Pablo. Note reviewed, agree with findings and recommendations. Patient currently seen in medical floor. Creatinine better.
[2025-09-13 09:55] VITALS: BP 163/58; PULSE 84
[2025-09-13 12:00] VITALS: BP 158/62; PULSE 83; RESP 17; TEMP 36.3; O2SAT 99
[2025-09-13] MEDS: LIDOCAINE VISCOUS 2% 15 ML UDC PO (12:05)
[2025-09-13] MEDS: METOCLOPRAMIDE INJ 5 MG/ML VIAL 2 ML 10 MG IVP (12:12)
--- NOTE | 2025-09-13 12:19 | ESDS_ITS ---
<Statement entered by Mariluz Ang DO - 09/14/25 07:18> I, Mariluz Ang DO, attest that I was physically present for the sanabria portions of the service and evaluated the patient with the resident and I reviewed and discussed the case with the resident and agree with the resident's findings and plans of care as documented above <Statement entered by Campbell Carrnaza MD - 09/13/25 15:34> Patient seen and examined at bedside. I discussed and supervised with the internet sales consultant physician who took care of this patient. I personally saw and examined the patient. I agree with most of the assessment and plan. Plan of care discussed with attending Dr. Ang. Campbell Carranza MD PGY-2 Planned Discharge Date 09/13/25 DS: Providers Provider Date of admission: 09/08/25 19:12 Primary care physician: Emiliano Rosas MD Admitting Provider: Keshav Rosenberg MD Attending Provider on Admission: Mariluz Ang DO Consults: 09/08/25 18:38 Consult to Nephrology Stat Comment: Hyponatremia Consulting Provider: Darcy Mauro 09/09/25 00:09 Referral Wound Care Urgent Comment: 09/09/25 10:30 Referral Nutritional Services Routine Comment: Wounds 09/10/25 10:37 Consult to Gastroenterology Routine Comment: Consulting Provider: Jeffy Lopez Attending Provider on DC: Won Gonzalez DO Discharging Provider: Won Gonzalez DO DS: Diagnosis Problem List Completed Was Problem List Reviewed/Reconciled?: Yes Hospital Course Hospital Course Hospital course: Summary: 65-year-old female patient with significant medical history for endometrial carcinoma SP hysterectomy and bilateral salpingo oophorectomy ([facility] 2016), SP radiation and chemotherapy (until 2021), SP ileostomy (rectovaginal fistula in 2022), HLD, PAD SP right AKA and chronic indwelling Reid catheter (since 2022) bedbound chronic left heel ulcer x 1 year, followed by diagnostic sales specialist, presents with epigastric pain and left chest pain radiating to back x 2 months. ?Admitted for management of eletrolyte imbalance and worsening pain since last admission 09/01, recently ran out of oxycodone 5mg at home. Patient received IVF NS for hyponatremia, IV antibiotics, received 1 unit of pRBC for low Hgb, IV reglan for gastric motility disorder, and amlodipine and Coreg to control HTN. Patient continued to receive IVF NS, and finally improved to 136 of sodium level on 09/13. Patient's lab and vitals have been stable, and was discharged on 09/13/2025. Hospital Course: In ED, BP was 171/91, HR 103, RR:16, afebrile 100% RA. labs showed WBC 22.9 Hgb 10.0 Plt 628 Na 118-121 Cl 86-89 Glucose 194-178 Serum osmolality 246 Alk phos 155. Chest x-ray negative. Gallbladder ultrasound positive cholelithiasis negative cholecystitis. Upon admission the hospital, patient's sodium was 118. so started on IVF NS. Started on IV zosyn as her WBC was 22.9 with history of ESBL, recurrent UTI, and chronic reid catheter due to history of fistua. CT abd/pelvis (09/08/2025) showed cholelithiasis, possible UTI, and mass involving the upper bladder, 38mm, most consistent with bladder carcinoma, abnormal rectal wall, thickened with perirectal density, possible proctitis. On 09/11, patient's Hgb dropped to 7.1, received 1 unit of pRBC, which improved to 9.1. HIDA scan (09/10/2025) revealed negative cystic duct obstrucion, negative cholecystitis, no significant common bile duct or small bowel activity that may be a function of liver disease. EGD(09/11/2025) showed esophagitis, gastritis, and gastric motility disorder. IV Reglan started for gastric motility disorder. Diet was slowly advanced as tolerated. For her upper bladder mass, based on pathology report (02/09/2025), bladder tissue showed no clear evidence of urothelial carcinoma, although close follow up was recommended. Patient received lisinopril, but later switched to amlodipine and Coreg due to worsening kidney function. Blood culture was negative for 24hrs and Urine culture showed E.coli, sensitive to IV zosyn. Patient continued to receive IVF NS, and finally improved to 136 of sodium level on 09/13. Patient's lab and vitals were stable, and was discharged on 09/13/2025 once patient was able to tolerate diet. #Abdominal pain likely 2/2 Gastric Motility disorder #Gastritis #GI bleed - r/o #Dumping syndrome-Resolving #Anemia,requiring blood transfusion- Resolving #Urinary tract infection #Chronic Reid catheter #History of endometrial carcinoma #Bladder mass #Hypertension #Asymptomatic hyperosmolar hypovolemic hyponatremia-Resolving. #Sacral decubitus ulcer #Lower extremity ulceration Instructions: You have been started on the following medications: - Amlodipine 10mg once daily - Coreg 6.25mg twice daily - Reglan 10mg take as needed, up to 4 times daily, for nausea, vomiting, or indigestion Follow up with gastroenterology for biopsy results, call his office to make an appointment. Take 6 small meals in a day. Please continue taking all other medications as previously prescribed. Please follow up with your primary doctor in 7-10 days. Return to ED if you develop new or worsening symptoms. 1) Follow up at [facility] as scheduled. [address] [place] [address]. Call [phone] if you need to reschedule appointment --Unstageable to left heel: cleanse with 1/4 st dakins solution, pat dry, soak dry fluff x [address] over wound. Layer with dry fluffs. Secure with kerlix roll and light marvin wrap daily and PRN for falling off or soiling. --Left lateral lower leg stage 4: irrigate with 1/4 st dakins solution, pat dry. Moistened fluffs with dakins solution and pack wound. Cover with abd pad. Layer with abd pad and secure with kerlix roll than light marvin wrap daily and PRN for falling off or soiling. Negative pressure to left heel, left foot left lateral lower leg at all times. --Stage 4 to sacrum: irrigate with 1/4 st dakins solution, pat dry. Pack wound including undermining with strip packing of hydrofera blue ready foam (supplied by wound RN). Cover with abd pad and secure with medipore tape daily and PRN for falling off or soiling. Side to side q2h repositioning except for meals. Assessment and plan discussed with my attending physician Dr. Ang and Dr. Tere Gonzalez (PGY-1) - Internal medicine resident Status at Discharge Overall status at discharge: patient is progressing back to baseline Time Spent with Patient Time attestation: Total time spent providing and/or coordinating discharge services: Time spent: Greater than 30 minutes Exam Vital Signs Temp Pulse Resp BP Pulse Ox O2 Del Method 97.3 F 83 17 158/62 H 99 Room Air 09/13/25 12:00 09/13/25 12:00 09/13/25 12:00 09/13/25 12:00 09/13/25 12:00 09/13/25 12:00 Narrative Exam General: No acute distress, well nourished, AAO x4 Eye: PERRL, EOMI, normal conjunctiva, no scleral icterus HENT: Normocephalic, atraumatic, hearing intact to conversation at normal volume, moist oral mucosa Neck: Supple, non-tender, no JVD, no lymphadenopathy Lungs: Non-labored respirations, symmetric chest rise, Clear to auscultate bilaterally, No wheezing, rhonchi, crackles Heart: Peripheral pulses intact bilaterally, Regular Rate and Rhythm. Abdomen: Soft, tender to palpation epigastric, non-distended, no palpable masses Musculoskeletal: Normal range of motion and strength, healed right AKA, LLE wrapped in kerlix, functional right ileostomy bag Skin: Skin is warm, dry, no rashes or lesions. Psychiatric: Cooperative, appropriate mood and affect, Awake and alert, not agitated Neuro: Cranial nerves II-XII grossly intact. Strength 5/5 throughout. Sensations intact to light touch Discharge Plan Plan Patient Disposition: Home w/HOME HEALTH Patient condition on transfer: Stable Care Plan Goals: You have been started on the following medications: - Amlodipine 10mg once daily - Coreg 6.25mg twice daily - Reglan 10mg take as needed, up to 4 times daily, for nausea, vomiting, or indigestion Follow up with gastroenterology for biopsy results, call his office to make an appointment. Take 6 small meals in a day. Please continue taking all other medications as previously prescribed. Please follow up with your primary doctor in 7-10 days. Return to ED if you develop new or worsening symptoms. 1) Follow up at [facility] as scheduled. [address] [place] [address]. Call [phone] if you need to reschedule appointment --Unstageable to left heel: cleanse with 1/4 st dakins solution, pat dry, soak dry fluff x [address] over wound. Layer with dry fluffs. Secure with kerlix roll and light marvin wrap daily and PRN for falling off or soiling. --Left lateral lower leg stage 4: irrigate with 1/4 st dakins solution, pat dry. Moistened fluffs with dakins solution and pack wound. Cover with abd pad. Layer with abd pad and secure with kerlix roll than light marvin wrap daily and PRN for falling off or soiling. Negative pressure to left heel, left foot left lateral lower leg at all times. --Stage 4 to sacrum: irrigate with 1/4 st dakins solution, pat dry. Pack wound including undermining with strip packing of hydrofera blue ready foam. Cover with abd pad and secure with medipore tape daily and PRN for falling off or soiling. Side to side q2h repositioning except for meals. Prescriptions/Referrals Prescriptions/Med Rec: New carvedilol [Coreg] 6.25 mg tablet 6.25 mg PO BID 30 Days Qty: 60 0RF Rx Instructions: must administer with a meal/food amlodipine 10 mg tablet 10 mg PO QDAY 30 Days Qty: 30 0RF metoclopramide HCl [Reglan] 10 mg tablet 10 mg PO Q6H PRN (Reason: nausea and vomiting, or indigestion) 30 Days Qty: 120 0RF Continued gabapentin 300 mg capsule 300 mg PO TID [id number] sulfate 15 mg iron tablet 1 tab PO QDAY Diphenhydramine HCL tablet 25 mg PO Q8HR PRN (Reason: itching) ergocalciferol (vitamin D2) 1,250 mcg (50,000 unit) capsule 1,250 mcg PO QWEEK ferrous sulfate [FeroSul] 325 mg (65 mg iron) tablet 325 mg PO BID Milk of Magnesia 30 ml PO .every 72 PRN (Reason: constipation) Rx Instructions: if no bowel movement for 3 consecutive days insulin lispro [Humalog U-100 Insulin] 100 unit/mL solution 1 sliding scale dose subcut USEASDIRECTD famotidine 20 mg tablet 40 mg PO QDAY atorvastatin 40 mg tablet 40 mg PO HS 30 Days Qty: 30 0RF methocarbamol 500 mg tablet 500 mg PO BID Qty: 20 0RF oxycodone-acetaminophen [Percocet] 5-325 mg tablet 1 tab PO [id number] 4 pills PRN (Reason: pain) 5 Days Qty: 20 0RF ascorbic acid (vitamin C) [Vitamin C] 250 mg tablet 250 mg PO QDAY 20 Days Qty: 20 0RF Nephro-Jerri 0.8 mg tablet 1 tab PO QDAY 30 Days Qty: 30 0RF simethicone 80 mg Tablet,Chewable 80 mg PO [id number] PRN (Reason: Gas) 10 Days Qty: 60 0RF Changed insulin glargine [Lantus Solostar U-100 Insulin] 100 unit/mL (3 mL) insulin pen 15 unit subcut BID 30 Days Qty: 9 0RF Rx Instructions: hold if blood sugar <100 Referrals: Emiliano Rosas MD [Primary Care Provider, Family Practice] Patient/Caregiver Discharge Instructions Discharge Activity: activity as tolerated Education Materials: Abdominal Pain, Complementary Care for Pain, Communicating About Pain, How the Colon Works, ED Diabetic Gastroparesis Print Language: Tajik Stand Alone Forms: Fide Award Info., Patient Portal Info Letter Discharge Order Discharge Orders: Discharge (Routine); Ordered 09/13/25 Ordered By: Carrillo Florentino Quality Discharge Quality Measures VTE prophylaxis
--- NOTE | 2025-09-13 14:49 | PC.SS ---
Addendum entered by Tamara Gurvinder Lomeli 09/13/25 15:43: SS received call from Trinity from [facility] who explained due to high sytem levels transport is pushed back to 5pm. Trinity is aware pt is ready for dc. SS has informed pt. Pt states she will contact her caregiver (SS offered to contact her caregiver and pt refused). Addendum entered by Tamara Gurvinder Lomeli 09/13/25 14:59: Transportation has been setup for 4pm. Bedside nurse, Jodie is aware. Pt is aware. Sister is aware. Charge nurse, Otilio is aware. Original Note: SS has setup gurney transportation, per physician's request. has sent NICOLAS, patient's facesheet, and ambulance form to [facility] using [employer]. SS has setup transportation for 4pm. Pt is returning home. SS met with pt who states she has informed her caregiver, Sarai of transportation time. Patient's sister is aware. Patient's sister, Mayra requested for physicians to send patient's medications to her pharmacy. SS met with Dr. Thomas, resident physician who has confirmed medications have been sent to her pharmacy.
--- NOTE | 2025-09-13 18:28 | PC.NURSE ---
Upon morning assessment, I began to inspect patient's skin. Patient had a chronic wound on left leg. Patient mentioned to me repeatedly that she did not want me to touch the wound and or dressing due to it being painful, not allowing me to make a thorough assessment of the wound. I did however not that the dressing was clean, dry, and intact. This morning patient was also complaining of abdominal pain. Patient was given Reglan and protonix this morning as well as patient medication. Patient refused all other oral medications, stating that her stomach could not take anything else, and that it was not good for her stomach. Patient was educated on the benefits of taking prescribed medications. However, patient still refused.
--- NOTE | 2025-09-13 19:20 | PD.IMPROG ---
Documentation for date of: 09/13/25 Subjective Subjective Interval history: Late entry for the note Okay to discharge patient home case discussed with internal medicine team No GI follow-up needed Exam Vital Signs Temp Pulse Resp BP Pulse Ox O2 Del Method 97.3 F 83 17 158/62 H 99 Room Air 09/13/25 12:00 09/13/25 12:00 09/13/25 12:00 09/13/25 12:00 09/13/25 12:00 09/13/25 12:00 Objective Labs 09/13/25 04:50 09/13/25 04:50 Labs: Laboratory Results - last 24 hr 09/13/25 04:50 WBC 14.4 H RBC 2.78 L Hgb 8.3 L Hct 24.3 L MCV 87 MCH 29.9 MCHC 34.2 RDW Std Deviation 43.1 Plt Count 417 Neut % (Auto) 72 Lymph % (Auto) 16 Hernando % (Auto) 9 Eos % (Auto) 3 Baso % (Auto) 0 Neut # (Auto) 10.3 H Lymph # (Auto) 2.3 Hernando # (Auto) 1.2 H Eos # (Auto) 0.4 Baso # (Auto) 0.1 Immature Gran # (Auto) 0.07 H Absolute Nucleated RBC 0.00 Immature Gran % 1 H Nucleated RBC % 0 Sodium 136 Potassium 3.9 Chloride 102 Carbon Dioxide 24.3 Anion Gap 10 BUN 5 L Creatinine 0.7 Estim Creat Clear Calc 75.9 eGFR > 60 BUN/Creatinine Ratio 7 L Glucose 95 Calculated Osmolality 269 L Calcium 8.6 Corrected Calcium 9.2 Phosphorus 2.8 Magnesium 1.6 Total Bilirubin 0.3 AST 14 ALT 8 L Alkaline Phosphatase 118 H Total Protein 5.9 Albumin 3.3 L Globulin 2.6 Albumin/Globulin Ratio 1.3 Impressions Impression: Atypical chest pain Gastritis Esophagitis Functioning gallbladder Okay to discharge patient to be followed by the PCP No GI follow-up needed Assessment & Plan A&P Narrative # Atypical chest pain # Epigastric abdominal pain # Cholelithiasis very symptomatic or asymptomatic not clear Suggestions HIDA scan without the pharmaceutical to see if the gallbladder is functioning or nonfunctioning If nonvisualization of the gallbladder then I would recommend laparoscopic cholecystectomy Repeat endoscopy scheduled for tomorrow Other medical problems include Endometrial carcinoma status post hysterectomy bilateral salpingo oophorectomy followed by radiation and chemotherapy 2026 at [facility] Rectovaginal fistula requiring colostomy Hyperlipidemia Peripheral artery disease status post right AKA Chronic Michel catheter Rectal wall thickening Thank you once again for the opportunity to participate in the care of this patient Time Spent With Patient Time: Total time spent is greater than 50% in coordination of care (as documented) at patient's floor/unit and/or counseling patient:
--- NOTE | 2025-09-15 11:15 | PC.CM ---
Patient has been accepted by [facility]. Start of care date set for 09/16.
== END 2025-09-13 16:33 | disposition home health service (06) | DRG 640 ==
LOC: SERX 12:02 → SERHOLD 19:15 → S3NX 21:31
PROVIDERS: Internal Medicine; Nurse Practitioner Family; Specialist; Admitting Provider Student in an Organized Health Care Education/Training Program; Emergency Provider Family Medicine; PCP Family Medicine; Visit Provider Internal Medicine
PROC: 0DB48ZX Excision of Esophagogastric Junction, Via Natural or Artificial Opening Endoscopic, Diagnostic (ICD-10-PCS; CPT 43239; principal; 2025-09-11 15:00)
DX: E87.1 Hypo-osmolality and hyponatremia (principal); K20.91 Esophagitis, unspecified with bleeding; N39.0 Urinary tract infection, site not specified; Z16.12 Extended spectrum beta lactamase (ESBL) resistance; L97.429 Non-pressure chronic ulcer of left heel and midfoot with unspecified severity; K91.1 Postgastric surgery syndromes; E78.5 Hyperlipidemia, unspecified; Z89.611 Acquired absence of right leg above knee; L89.159 Pressure ulcer of sacral region, unspecified stage; E86.1 Hypovolemia; Z74.01 Bed confinement status; Z93.3 Colostomy status; K80.20 Calculus of gallbladder without cholecystitis without obstruction; E11.51 Type 2 diabetes mellitus with diabetic peripheral angiopathy without gangrene; E11.621 Type 2 diabetes mellitus with foot ulcer; I10 Essential (primary) hypertension; Z90.710 Acquired absence of both cervix and uterus; Z85.42 Personal history of malignant neoplasm of other parts of uterus; Z66 Do not resuscitate; Z79.4 Long term (current) use of insulin; Z88.5 Allergy status to narcotic agent; Z87.440 Personal history of urinary (tract) infections; Z96.0 Presence of urogenital implants; R19.7 Diarrhea, unspecified; K29.70 Gastritis, unspecified, without bleeding; E11.69 Type 2 diabetes mellitus with other specified complication
CPT/HCPCS: 36415; 51702; 71045; 74177; 76705; 78226; 80048; 80053; 80069; 81001; 82436; 83036; 83605; 83690; 83735; 83880; 84100; 84133; 84145; 84295; 84300; 84484; 84550; 85014; 85018; 85025; 85610; 85730; 86850; 86900; 86901; 86923; 87040; 87077; 87081; 87086; 87186; 93005; 96361; 96365; 96372; 96375; 99284; A4314; A4649; A9537; J0500; J1200; J1644; J1815; J1885; J2405; J2470; J2543; J2765; J3475; J3490; J7030; J7070; J7999; P9016; Q9967; A9270

== ENCOUNTER → 2025-09-08 | Outpatient (CLI) | payer MEDICARE, MEDICAID, SELFPAY | END | disposition home or self-care (01) | PROVIDERS: PCP Family Medicine; Referring Provider Family Medicine; Visit Provider Student in an Organized Health Care Education/Training Program | DX: L89.153 Pressure ulcer of sacral region, stage 3 (principal); L89.620 Pressure ulcer of left heel, unstageable; S81.802A Unspecified open wound, left lower leg, initial encounter; X58.XXXA Exposure to other specified factors, initial encounter; M86.60 Other chronic osteomyelitis, unspecified site; Z99.3 Dependence on wheelchair; G89.29 Other chronic pain; F41.9 Anxiety disorder, unspecified; Z89.511 Acquired absence of right leg below knee; I82.492 Acute embolism and thrombosis of other specified deep vein of left lower extremity | CPT/HCPCS: 11042; 11045; 99213; A9270; G0463 ==

== ENCOUNTER → 2025-09-22 | Outpatient (CLI) | payer MEDICARE, MEDICAID, SELFPAY | END | disposition home or self-care (01) | PROVIDERS: Referring Provider Student in an Organized Health Care Education/Training Program; Visit Provider Student in an Organized Health Care Education/Training Program | DX: E11.621 Type 2 diabetes mellitus with foot ulcer (principal) | CPT/HCPCS: 87070; 87075; 87077; 87186; 87205 ==

== ENCOUNTER → 2025-09-22 | Outpatient (CLI) | payer MEDICARE, MEDICAID, SELFPAY | END | disposition home or self-care (01) | PROVIDERS: PCP Family Medicine; Referring Provider Family Medicine; Visit Provider Student in an Organized Health Care Education/Training Program | DX: L89.154 Pressure ulcer of sacral region, stage 4 (principal); L89.620 Pressure ulcer of left heel, unstageable; S81.802A Unspecified open wound, left lower leg, initial encounter; X58.XXXA Exposure to other specified factors, initial encounter; M86.60 Other chronic osteomyelitis, unspecified site; Z99.3 Dependence on wheelchair; G89.29 Other chronic pain; F41.9 Anxiety disorder, unspecified; Z89.511 Acquired absence of right leg below knee; I82.492 Acute embolism and thrombosis of other specified deep vein of left lower extremity | CPT/HCPCS: 11042; 97597; 97598; 99215; A9270; G0463 ==

== ENCOUNTER → 2025-09-29 | Outpatient (CLI) | payer MEDICARE, MEDICAID, SELFPAY | END | disposition home or self-care (01) | LOC: SWHD 13:02 | PROVIDERS: PCP Family Medicine; Referring Provider Family Medicine; Visit Provider Student in an Organized Health Care Education/Training Program | DX: L89.154 Pressure ulcer of sacral region, stage 4 (principal); L89.622 Pressure ulcer of left heel, stage 2; S81.802A Unspecified open wound, left lower leg, initial encounter; X58.XXXA Exposure to other specified factors, initial encounter; M86.60 Other chronic osteomyelitis, unspecified site; Z99.3 Dependence on wheelchair; G89.29 Other chronic pain; F41.9 Anxiety disorder, unspecified; Z89.511 Acquired absence of right leg below knee; I82.492 Acute embolism and thrombosis of other specified deep vein of left lower extremity | CPT/HCPCS: 11043; 11042; A9270 ==

== ENCOUNTER → 2025-09-30 | Outpatient (CLI) | payer MEDICARE, MEDICAID, SELFPAY | END | disposition home or self-care (01) | LOC: SLDO 15:36 | PROVIDERS: Referring Provider Student in an Organized Health Care Education/Training Program; Visit Provider Student in an Organized Health Care Education/Training Program | DX: E11.621 Type 2 diabetes mellitus with foot ulcer (principal); M85.17 Skeletal fluorosis, ankle and foot | CPT/HCPCS: 87070; 87075; 87077; 87186; 87205 ==